=== PATIENT | male | born 1950 | race Caucasian/White ===

== ENCOUNTER 2017-01-17 08:06 | Inpatient (IN) | payer MEDICARE ==
[~2017-01-17] VITALS: Ht 154.9 cm; Wt 80.9 kg
[~2017-01-17 08:06] MED LIST: ACYC-101 PO; ALPR0.25 PO; AMLO5TAB2 PO; ASPI-110 PO; CYCL1TAB29 PO; DIAZ5TAB PO; HYDR-3580 PO; HYDR25TA5 PO; LOSA50TA PO; PREV30CA11 PO; ZETI10TA5 PO; ZOLP5TAB3 PO
[2017-01-17] MEDS ORDERED: ceFAZolin 2 GM PREMIX 50 ML IV SCH (08:45)
[2017-01-17] MEDS ORDERED: LACTATED RINGER'S 1000 ML IV PRN (08:45)
[2017-01-17] MEDS ORDERED: CHLORHEXIDINE GLUCONATE 2 % 1 PACK (2 CLOTHS) TOPICAL PRN (08:45)
[2017-01-17] MEDS ORDERED: METOPROLOL TARTRATE 25 MG TAB PO PRN (08:45)
[2017-01-17] MEDS ORDERED: POVIDONE IODINE 5% (ANTISEPSIS KIT) 4 APPLICATIONS EACH NARE PRN (08:45)
[2017-01-17] MEDS ORDERED: SODIUM CHLORID 0.9% 500 ML IV PRN (08:45)
[2017-01-17] MEDS ORDERED: INSULIN HUMAN REGULAR 1,000 UNITS/10 ML VIAL SQ PRN (08:45)
[2017-01-17] MEDS ORDERED: ZOFR4TAB PO (08:46)
[2017-01-17 08:49] VITALS: BP 126/68; PULSE 62; RESP 18; TEMP 98.2; O2SAT 97
[2017-01-17 09:21] LABS: AUTOMATED NEUTROPHIL # 3.1 TH/MM3 (1.8-7.7); BASOPHIL % 0.3 % (0.0-2.0); EOSINOPHIL # 0.3 TH/MM3 (0-0.4); HEMATOCRIT 46.9 % (39.0-51.0); HEMO FLAGS DIFF FINAL; LYMPH % 30.3 % (9.0-44.0); LYMPHOCYTE # 1.7 TH/MM3 (1.0-4.8); MEAN CELL VOLUME 93.9 FL (80.0-100.0); MEAN CORPUSCULAR HEMOGLOBIN 31.9 PG (27.0-34.0); MEAN CORPUSCULAR HGB CONC 33.9 % (32.0-36.0); MONO % 8.5 % (0.0-8.0); NEUT % 55.9 % (16.0-70.0); PLATELET COUNT 247 TH/MM3 (150-450); RED CELL DISTRIBUTION WIDTH 12.7 % (11.6-17.2); WHITE BLOOD COUNT 5.6 TH/MM3 (4.0-11.0)
[2017-01-17 09:38] LABS: BICARBONATE 32.2 MEQ/L (21.0-32.0)
[2017-01-17] MEDS ORDERED: SUGAMMADEX SODIUM 200 MG/2 ML VIAL IV PUSH ONE ×2 (09:47)
[2017-01-17] MEDS ORDERED: ACETAMINOPHEN 1000 MG/100 ML VIAL IV ONE (09:47)
[2017-01-17] MEDS ORDERED: ONABOTULINUMTOXINA INJ 100 UNITS/VIAL ONE (10:00)
[2017-01-17] MEDS ORDERED: LACTATED RINGER'S 1000 ML INJ 3,000 ML IV ONE (12:00)
[2017-01-17] MEDS ORDERED: ONDANSETRON HCL 4 MG/2 ML VIAL IV PUSH ONE (12:00)
[2017-01-17] MEDS ORDERED: PROPOFOL 200 MG/20 ML AMP IV ONE (12:00)
[2017-01-17] MEDS ORDERED: ePHEDrine/NS 25 MG/5 ML SYR IV ONE (12:00)
[2017-01-17] MEDS ORDERED: BUPIVACAINE LIPOSOME PF 1.3% 20 ML VIAL ONE (12:44)
[2017-01-17] MEDS ORDERED: METHYLENE BLUE 10 MG/ML VIAL NG ONE (15:10)
[2017-01-17] MEDS ORDERED: diphenhydrAMINE HCL 50 MG/ML VIAL IV PRN (16:30)
[2017-01-17] MEDS ORDERED: BENZOCAINE 20% ORAL SPR 60 ML CAN MT PRN (16:30)
[2017-01-17] MEDS ORDERED: Post-op Orders (for Pharmacy) MISC XX ONE (16:30)
[2017-01-17] MEDS ORDERED: NALOXONE HCL 0.4 MG/ML AMP IV PRN ×2 (16:30)
[2017-01-17] MEDS ORDERED: DO NOT ADM ANY ANTICOAGULANT DRUGS PRN (16:30)
[2017-01-17] MEDS ORDERED: SODIUM CHLORIDE 0.9% FLUSH 10 ML FLUSH IV FLUSH PRN (16:30)
[2017-01-17] MEDS ORDERED: MORPHINE SULFATE 4 MG/ML INJ ONE (16:37)
[2017-01-17] MEDS ORDERED: fentaNYL CITRATE 250 MCG/5 ML AMP ONE (16:37)
[2017-01-17] MEDS ORDERED: MIDAZOLAM HCL 2 MG/2 ML VIAL ONE (16:37)
[2017-01-17] MEDS ORDERED: *morphine SULFATE 8 MG/ML PERIprocedure ONLY ONE ×3 (16:47→17:23)
[2017-01-17] MEDS: MORPHINE SULFATE 30 MG/30 ML PCA IV SCH ×2 (16:58→20:37)
[2017-01-17] MEDS: SODIUM CHLOR 0.9% 1000 ML INJ 1,000 ML IV SCH (16:58)
[2017-01-17] MEDS: metroNIDAZOLE 500 MG INJ 100 ML IV SCH (17:15)
[2017-01-17] MEDS: PANTOPRAZOLE SODIUM 40 MG VIAL IV SCH (17:29)
[2017-01-17 18:18] VITALS: BP 154/79; PULSE 100; RESP 19; TEMP 98.3; O2SAT 90
[2017-01-17 19:45] VITALS: O2SAT 92
[2017-01-17 20:00] VITALS: BP 162/88; PULSE 113; RESP 19; TEMP 97.8; O2SAT 90
[2017-01-17] MEDS: ACETAMINOPHEN 1000 MG/100 ML VIAL IV SCH (20:43)
[2017-01-17] MEDS: PCA - TOTAL MG MORPHINE DELIVERED PER SHIFT SCH (20:43)
[2017-01-17] MEDS: SODIUM CHLORIDE 0.9% FLUSH 10 ML FLUSH IV FLUSH SCH (20:44)
[2017-01-18] VITALS (8 sets, daily range): BP systolic 133–164; BP diastolic 66–76; PULSE 76–104; RESP 16–20; TEMP 96.5–99.7; O2SAT 92–95
[2017-01-18] MEDS: ACETAMINOPHEN 1000 MG/100 ML VIAL IV SCH ×5 (00:15→23:09)
[2017-01-18] MEDS: SODIUM CHLOR 0.9% 1000 ML INJ 1,000 ML IV SCH ×4 (00:17→23:11)
[2017-01-18] MEDS: metroNIDAZOLE 500 MG INJ 100 ML IV SCH ×2 (02:10→10:32)
[2017-01-18] MEDS: PCA - TOTAL MG MORPHINE DELIVERED PER SHIFT SCH ×3 (06:00→22:00)
[2017-01-18 07:01] LABS: AUTOMATED NEUTROPHIL # 13.2 TH/MM3 (1.8-7.7); BASOPHIL % 0.1 % (0.0-2.0); HEMATOCRIT 45.4 % (39.0-51.0); HEMO FLAGS DIFF FINAL; LYMPH % 5.4 % (9.0-44.0); LYMPHOCYTE # 0.8 TH/MM3 (1.0-4.8); MEAN CELL VOLUME 95.4 FL (80.0-100.0); MEAN CORPUSCULAR HEMOGLOBIN 32.3 PG (27.0-34.0); MEAN CORPUSCULAR HGB CONC 33.8 % (32.0-36.0); MONO % 4.3 % (0.0-8.0); NEUT % 90.2 % (16.0-70.0); PLATELET COUNT 181 TH/MM3 (150-450); RED BLOOD COUNT 4.76 MIL/MM3 (4.50-5.90); RED CELL DISTRIBUTION WIDTH 12.4 % (11.6-17.2); WHITE BLOOD COUNT 14.6 TH/MM3 (4.0-11.0)
[2017-01-18 07:18] LABS: BICARBONATE 27.5 MEQ/L (21.0-32.0); POTASSIUM 3.8 MEQ/L (3.5-5.1)
--- NOTE | 2017-01-18 08:11 | EKG ---
Date Performed: 01/17/2017 Time Performed: 08:49:10 PTAGE: 66 years EKG: Sinus rhythm NORMAL ECG NO PREVIOUS TRACING DOCTOR: Aman Guzman Interpretating Date/Time 01/18/2017 08:05:59
[2017-01-18] MEDS: SODIUM CHLORIDE 0.9% FLUSH 10 ML FLUSH IV FLUSH SCH ×2 (09:00→23:11)
--- NOTE | 2017-01-18 10:02 | PD.CONS ---
HPI Service [facility] Hospitalists Consult Requested By Dr. Ritchie Reason for Consult Medical Management Primary Care Physician Tai Bhatt MD Diagnoses: History of Present Illness Mr. 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 He was staged at a T1a,Nx based on EUS, CT thorax/Abd/pelvis and PET scan. Pt follows with Dr. Nickolas Luna for Oncology. He was admitted to [facility] on 01/17/17 for Laparoscopic gastrectomy and cholecystectomy with Botox injection with Dr. Ritchie. [facility] Hospitalist team was consulted to help with management of the pts chronic medical issues. Post-operatively he is afebrile, BP is stable. His nurse reports that post-operatively that he was hypoxic in the low 80's but this has improved somewhat today. He states that he feels like he can't take a deep breath because of the pain in his abdomen. He was able to get up with PT this morning and ambulated in the [place] with PT on 4L NC. PT reports that he did have some dizziness with sitting up. No nausea/vomiting. Pt with NGT in place, currently clamped as he just returned from working with PT. He denies any history of any lung issues. He has hx of tobacco use, smoked 1-2ppd x 20 years, quit in 1994. Denies any hx of COPD, asthma or RASHAAD. Pt does have HTN which is well controlled on Losartan 50mg po BID, Norvasc 5mg po BID and HCTZ 25mg po daily as an outpt. Pt BP is currently stable off all home meds. Pt with complaints of abdominal bloating and discomfort, moreso when he moves around. Denies any chest pain, palpitations, nausea/vomiting, or weakness. 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 HTN GERD Hyperlipidemia Osteoarthritis Past Surgical History Appendectomy Cataract surgery Elbow surgery Knee surgery Reported Medications -Zolpidem 5 Mg PO HS PRN -Zovirax 800 Mg PO BID PRN -Vcftccxh11 Mg PO TID PRN -Aspirin 81 Mg PO DAILY -Hydrochlorothiazide 25 Mg PO DAILY -Zetia 10 Mg PO HS -Losartan 50 Mg PO BID -Prevacid 30 Mg PO BID -Amlodipine 5 Mg PO BID -Hydrocodone-Acetaminophen 7.5-325 mg PO Q6H PRN -Zofran 8 Mg PO Q8HR PRN -Diazepam 5 Mg PO HS PRN -Alprazolam 0.25 Mg PO BID Allergies: Coded Allergies: HMG-CoA Reductase Inhibitors (Verified Allergy, Severe, MUSCLE PAIN, ) Family History Noncontributory Social History Denies any alcohol or illicit drug use He has hx of tobacco use, quit in 1994 Pt is currently 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 Physical Exam Vital Signs Vital Signs Date Time Temp Pulse Resp B/P Pulse Ox O2 Delivery O2 Flow Rate FiO2 01/18/17 09:24 95 Venturi Mask 6.00 35 01/18/17 08:00 96.5 95 16 134/70 93 01/18/17 06:00 18 01/18/17 04:00 97.7 88 19 138/70 95 01/18/17 00:00 97.8 104 19 133/76 93 01/17/17 20:43 16 01/17/17 20:43 16 01/17/17 20:37 16 01/17/17 20:00 97.8 113 19 162/88 90 01/17/17 19:50 Venturi Mask 6.00 35 01/17/17 18:18 98.3 100 19 154/79 90 01/17/17 17:45 99.0 91 14 143/67 93 Nasal Cannula 3 01/17/17 17:30 86 13 153/70 93 Nasal Cannula 3 01/17/17 17:15 82 14 152/62 94 Nasal Cannula 3 01/17/17 17:00 81 16 162/74 93 Nasal Cannula 4 01/17/17 16:58 15 01/17/17 16:45 76 19 156/82 95 Nasal Cannula 4 01/17/17 16:30 75 14 140/79 95 Nasal Cannula 4 01/17/17 16:28 98.3 78 19 138/79 95 Nasal Cannula 4 Physical Exam GENERAL: This is a well-nourished, well-developed patient, in no apparent distress. HEENT: Atraumatic. Normocephalic. No temporal or scalp tenderness. No scleral icterus. Airway patent. NGT in place. NECK: Trachea midline, supple, nontender. SubQ emphysema around the clavicles and neck area CARDIO: Regular. RESP: CTA bilaterally. No wheezes, rales, or rhonchi. ABD: Distended, ANDREW drain in place, bandages over laparascopic incisions are c/d/ i, no bowel sounds noted. EXT: Extremities without clubbing, cyanosis, or edema. NEURO: Awake and alert. Motor and sensory grossly within normal limits. Normal speech. Laboratory Laboratory Tests Test 01/18/17 06:15 White Blood Count 14.6 Red Blood Count 4.76 Hemoglobin 15.3 Hematocrit 45.4 Mean Corpuscular Volume 95.4 Mean Corpuscular Hemoglobin 32.3 Mean Corpuscular Hemoglobin 33.8 Concent Red Cell Distribution Width 12.4 Platelet Count 181 Mean Platelet Volume 7.8 Neutrophils (%) (Auto) 90.2 Lymphocytes (%) (Auto) 5.4 Monocytes (%) (Auto) 4.3 Eosinophils (%) (Auto) 0.0 Basophils (%) (Auto) 0.1 Neutrophils # (Auto) 13.2 Lymphocytes # (Auto) 0.8 Monocytes # (Auto) 0.6 Eosinophils # (Auto) 0.0 Basophils # (Auto) 0.0 CBC Comment DIFF FINAL Differential Comment Sodium Level 137 Potassium Level 3.8 Chloride Level 103 Carbon Dioxide Level 27.5 Anion Gap 7 Blood Urea Nitrogen 7 Creatinine 0.72 Estimat Glomerular Filtration 110 Rate Random Glucose 149 Calcium Level 7.4 Protein Corrected Calcium 8.0 Total Protein 6.0 Result Diagram: 01/18/1761401/18/17614 Assessment and Plan Problem List: (1) Primary adenocarcinoma of distal third of esophagus Status: Acute Plan: - Pt is a 66 y/o male recently diagnosed with 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 He was staged at a T1a,Nx based on EUS, CT thorax/Abd/pelvis and PET scan. Pt follows with Dr. Nickolas Luna for Oncology. - He was admitted to [facility] [place] on 01/17/17 for Laparoscopic gastrectomy and cholecystectomy with Botox injection with Dr. Ritchie. - Post-op pain control per Surgery - Pt is NPO with NGT and ANDREW drain in place - He is requiring increased supplemental O2 but he is not taking deep breaths due to pain, encourage IS use - Try to wean down on supplemental O2 - PT following - Monitor vitals closely - CXR in AM - Monitor labs - Supportive care - DVT prophylaxis with Lovenox (2) HTN (hypertension) Status: Chronic Plan: - HTN which is well controlled on Losartan 50mg po BID, Norvasc 5mg po BID and HCTZ 25mg po daily as an outpt - Currently BP is stable off all home meds - Vasotec PRN - Will likely need to add medications back in the further he gets from surgery (3) Hyperlipidemia Status: Chronic Plan: - Hold home meds until tolerating oral intake (4) GERD (gastroesophageal reflux disease) Status: Chronic Plan: - PPI Assessment and Plan Patient examined. Assessment and plan formulated with Rowan Murdock PA-C. I agree with the above. s/p gastrectomy. distal esophagus adenoca pt with ngt and ivf. 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 spirometer. poor inspiratory effort/hypoxia. f/u cxr. Rowan Murdock Jan 18, 2017 10:02 Al Jenkins MD Jan 18, 2017 13:03
[2017-01-18] MEDS: MORPHINE SULFATE 30 MG/30 ML PCA IV SCH ×2 (10:34→18:57)
[2017-01-18] MEDS ORDERED: cloNIDine HCL 0.1 MG TAB PO PRN (11:15)
--- NOTE | 2017-01-18 16:48 | HHI.PR ---
Subjective Subjective Notes Resting in bed No issues at bedside Objective Vitals/I&O Vital Signs Date Time Temp Pulse Resp B/P Pulse Ox O2 Delivery O2 Flow Rate FiO2 01/18/17 16:13 93 Venturi Mask 6.00 35 01/18/17 12:00 97.4 76 17 146/66 Labs Laboratory Tests Test 01/18/17 06:15 White Blood Count 14.6 Red Blood Count 4.76 Hemoglobin 15.3 Hematocrit 45.4 Mean Corpuscular Volume 95.4 Mean Corpuscular Hemoglobin 32.3 Mean Corpuscular Hemoglobin 33.8 Concent Red Cell Distribution Width 12.4 Platelet Count 181 Mean Platelet Volume 7.8 Neutrophils (%) (Auto) 90.2 Lymphocytes (%) (Auto) 5.4 Monocytes (%) (Auto) 4.3 Eosinophils (%) (Auto) 0.0 Basophils (%) (Auto) 0.1 Neutrophils # (Auto) 13.2 Lymphocytes # (Auto) 0.8 Monocytes # (Auto) 0.6 Eosinophils # (Auto) 0.0 Basophils # (Auto) 0.0 CBC Comment DIFF FINAL Differential Comment Sodium Level 137 Potassium Level 3.8 Chloride Level 103 Carbon Dioxide Level 27.5 Anion Gap 7 Blood Urea Nitrogen 7 Creatinine 0.72 Estimat Glomerular Filtration 110 Rate Random Glucose 149 Calcium Level 7.4 Protein Corrected Calcium 8.0 Total Protein 6.0 Cardiovascular: Regular Lungs: Clear Abdomen: Other (lap sites c/d/i; ANDREW in place ) Extremities: No edema Narrative Exam NGT to LIWS A/P Assessment and Plan 66 year old male POD1 laparoscopic gastrectomy and cholecystectomy with Botox injection -Keep NGT to LIWS -IVF -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 I reviewed and agree with the findings presented. I attest that I had a [id number] encounter with the patient on the same day, and personally performed and documented my assessment and findings in the medical record. Abdominal exam: soft, non-distended, no rebound tenderness, postoperative incisional pain only Es Solis Jan 18, 2017 16:48 Josh Ritchie MD Feb 07, 2017 14:03
[2017-01-18] MEDS: PANTOPRAZOLE SODIUM 40 MG VIAL IV SCH (18:05)
[2017-01-18] MEDS: ENOXAPARIN SODIUM 40 MG/0.4 ML SYRINGE SQ SCH (18:05)
[2017-01-18] MEDS ORDERED: EZETIMIBE 10 MG TAB PO SCH (21:00)
[2017-01-19] VITALS (9 sets, daily range): BP systolic 134–184; BP diastolic 66–83; PULSE 90–125; RESP 16–20; TEMP 96.3–99.2; O2SAT 92–98
[2017-01-19] MEDS: ACETAMINOPHEN 1000 MG/100 ML VIAL IV SCH ×3 (05:25→17:43)
[2017-01-19] MEDS: PCA - TOTAL MG MORPHINE DELIVERED PER SHIFT SCH ×3 (05:25→21:04)
--- NOTE | 2017-01-19 06:36 | RADRPT ---
EXAM DATE/TIME: 01/19/2017 06:11 [place] COMPARISON: No previous studies available for comparison. INDICATIONS : Short of breath, chest and abdominal pain,2 days post laporscopic gastrectomy MEDICAL HISTORY : carcinoma of stomach SURGICAL HISTORY : lap gastrectomy ENCOUNTER: Subsequent ACUITY: 2 days PAIN SCORE: 10/10 LOCATION: Bilateral chest FINDINGS: Mild consolidation and small pleural effusion seen at the left lung base. Don't see a pneumothorax. H eart size within normal limits. There is a nasogastric tube that deviates abruptly to the left at the level of the diaphragm, tip projecting over the left lung base. There is questionable body wall emph ysema, especially left base of neck. CONCLUSION: Mild consolidation and small pleural effusion at the left lung base. Unusual course and tip location of the nasogastric tube as above. Please correlate with the recent surgery. Gonzales Pierre MD on January 19, 2017 at 6:32 Board Certified Radiologist. This report was verified electronically.
[2017-01-19 07:13] LABS: AUTOMATED NEUTROPHIL # 12.3 TH/MM3 (1.8-7.7); BASOPHIL % 0.2 % (0.0-2.0); EOSINOPHIL % 0.1 % (0.0-4.0); HEMATOCRIT 43.3 % (39.0-51.0); HEMO FLAGS DIFF FINAL; LYMPH % 4.8 % (9.0-44.0); LYMPHOCYTE # 0.7 TH/MM3 (1.0-4.8); MEAN CELL VOLUME 96.7 FL (80.0-100.0); MEAN CORPUSCULAR HEMOGLOBIN 32.4 PG (27.0-34.0); MEAN CORPUSCULAR HGB CONC 33.5 % (32.0-36.0); MONO % 5.7 % (0.0-8.0); NEUT % 89.2 % (16.0-70.0); PLATELET COUNT 151 TH/MM3 (150-450); RED BLOOD COUNT 4.48 MIL/MM3 (4.50-5.90); RED CELL DISTRIBUTION WIDTH 12.8 % (11.6-17.2); WHITE BLOOD COUNT 13.8 TH/MM3 (4.0-11.0)
[2017-01-19 07:31] LABS: BICARBONATE 27.1 MEQ/L (21.0-32.0); MAGNESIUM 2.1 MG/DL (1.5-2.5); POTASSIUM 3.7 MEQ/L (3.5-5.1)
[2017-01-19] MEDS: SODIUM CHLORIDE 0.9% FLUSH 10 ML FLUSH IV FLUSH SCH ×2 (09:00→21:00)
[2017-01-19] MEDS: MORPHINE SULFATE 30 MG/30 ML PCA IV SCH ×2 (09:11→18:14)
--- NOTE | 2017-01-19 12:26 | MP ---
cc: BURAK ROCHA DATE OF SURGERY: 01/17/2017. PREOPERATIVE DIAGNOSIS: Proximal gastric adenocarcinoma of the cardia. POSTOPERATIVE DIAGNOSIS: Proximal gastric adenocarcinoma of the cardia. OPERATIVE PROCEDURE PERFORMED: 1. Laparoscopic cholecystectomy. 2. Laparoscopic proximal (partial) gastrectomy with esophageal gastric anastomosis. 3. Injection of pylorus with Botox. ATTENDING SURGEON: Burak Rocha M.D. ASSISTANTS: Adam Canales MD. ANESTHESIA: General and regional tap block. ESTIMATED BLOOD LOSS: Less than 50 cc. COMPLICATIONS: None. FINDINGS: An ulcerated small tumor consistent with the patient's cardia tumor grossly on the specimen. Esophageal gastric anastomosis without leak on leak test. Relatively normal-appearing gallbladder. INDICATIONS FOR THE PROCEDURE: The patient is a 66-year-old male who developed some epigastric abdominal pain. The patient underwent extensive work up including upper endoscopy and evaluation of his gallbladder. It was felt the patient likely had gallbladder disease versus reflux disease. The patient was also diagnosed during his workup for reflux with a small early stage T1 type gastric adenocarcinoma of the cardia and the stomach. The patient was referred for surgery for evaluation. I had discussion with the patient about recommendations for early stage adenocarcinoma (surgical resection was recommended). Also discussion with the patient about cholecystectomy as well due to the patient's epigastric pain. The patient agreed to undergo cholecystectomy as well. Risks, benefits, and alternatives to both the procedures were discussed with the patient in detail prior to the procedure and the patient agreed to undergo the procedure. DESCRIPTION OF THE PROCEDURE IN DETAIL: The patient was taken to the operating room and placed in a supine position and placed under general endotracheal anesthesia. The patient underwent a regional tap block at that time. The abdomen was entered through a Zeny direct entry technique and the patient and a periumbilical incision. We directly placed a 10-mm trocar into the abdomen under direct visualization. We then were able to insufflate the abdomen and surveyed the abdomen. There was no evidence of any intra-abdominal pathology. We placed a 5-mm port in the subxiphoid position and a second 5-mm port in the right upper quadrant under visualization with a laparoscope. We were to perform the cholecystectomy first. We grasped the gallbladder around the infundibulum body junction with the grasper and retracted this upward. We used the LigaSure device as well as the [place] dissector to dissect out the cystic duct and cystic artery without difficulty. The gallbladder was fairly normal-appearing but with some other chronic changes. We then were able to place a proximal clip distal in the cystic duct and a clip proximal in the cystic artery and a critical view of safety was obtained. We divided these structures with the LigaSure and used hook electrocautery to take the gallbladder off the gallbladder fossa. The gallbladder was removed from the abdomen in an EndoCatch bag. At this point, we turned our attention to the partial gastrectomy. We were able to use the LigaSure device to take down the of the short gastrics and mobilized the gastrocolic ligament all way down to the right tiburcio. We divided the right and left tiburcio with the LigaSure device opening up a hiatus thoroughly. We dissected around the esophagus and placed a Hudson around this to gain retraction. We mobilized the esophagus up to approximately 3-4 cm into the chest. We then mobilized the proximal stomach. We did leave the left gastric intact. We essentially mobilized several centimeters from the GE junction down to the cardia and over to the fundus. We divided the proximal margin and distal margin with green loads on the echelon laparoscopic GI stapler. The specimen then was freed from the patient then was removed from the abdomen with the EndoCatch bag. Of note, we did place an additional 5 and an additional 10-mm port in the patient's epigastric and left upper quadrant area as for assistance ports. We also placed a Tyra-Flex liver retractor as well. We did confirm on the specimen that the tumor was in the cardia of the stomach and had widely grossly negative margins. This seemed to be a very superficial type malignancy as it was not externally visible. We turned our attention towards reconstruction. We were able to have essentially a tension-free connection between what was left of the proximal body of the stomach and the distal end of the esophagus. We made an enterotomy at the left lateral side of the esophagus and again the proximal body of the stomach on the anterior portion of the stomach. We fired a green load stabilizer across this approximately 30 mm which gave us a widely patent anastomosis. I was then able to place an nasogastric tube past this anastomosis and this was widely patent with viable tissue. We closed the staple defect with a running 3-0 Vicryl suture. We also placed some PDS gastropexy type sutures to reduce any tension on the anastomosis. We placed some Evicel around the anastomosis 360 degrees. We had excellent tactical result with a leak test prior to the Evicel there was no leak of Methylene blue and saline infusion into the stomach. We did at this point in time place 100 units of Botox in the pylorus for chemical pyloroplasty. We also placed a 19-Niuean round Isidro drain in the right upper quadrant extending to near the anastomosis anteriorly. We turned our attention towards closure. We removed all ports under visualization with the laparoscope and expressed the pneumoperitoneum. We closed the 10 port sites with #0 Vicryl suture. We sutured the drain in place with a nylon suture. We closed the skin with 4-0 Monocryl and Dermabond. The patient was reversed from anesthesia and taken to the post-anesthesia care unit in stable. The patient tolerated the procedure well with no apparent complications. All counts were correct. I was present and scrubbed for the entire procedure. MD DEMETRIUS Pires/ODILON /4:39 PM /12:01 PM
--- NOTE | 2017-01-19 14:05 | HHI.PR ---
Subjective Remarks doing ok. no new complaints Objective Vitals ngt heart reg lung diminished air entrh abd s/minimal bs ext no edema. Vital Signs Date Time Temp Pulse Resp B/P Pulse Ox O2 Delivery O2 Flow Rate FiO2 01/19/17 12:46 92 Venturi Mask 5.00 35 01/19/17 12:00 96.3 94 16 134/66 98 h01/19/17 09:11 16 01/19/17 09:04 92 01/19/17 08:00 97.8 90 17 155/71 95 01/19/17 05:55 20 01/19/17 05:25 20 01/19/17 04:00 99.2 95 20 184/83 93 01/19/17 00:00 99.1 95 18 142/68 93 01/18/17 22:00 20 01/18/17 20:00 99.7 104 20 164/75 92 01/18/17 19:30 20 01/18/17 18:57 18 01/18/17 16:13 93 Venturi Mask 6.00 35 01/18/17 16:00 97.3 96 17 153/75 93 01/18/17 01/18/17 01/19/17 15:00 23:00 07:00 Intake Total 75 ml 1403 ml 1447 ml Output Total 950 ml 1050 ml 1380 ml Balance -875 ml 353 ml 67 ml Intake Oral 75 ml IV Total 1403 ml 1447 ml Output Urine Total 950 ml 500 ml 1200 ml Gastric Drainage Total 500 ml 100 ml Drainage Total 50 ml 80 ml # Bowel Movements 0 0 0 Result Diagram: 01/19/17 0557 01/19/17 0557 A/P Problem List: (1) Primary adenocarcinoma of distal third of esophagus Status: Acute Plan: - Pt is a 66 y/o male recently diagnosed with 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 He was staged at a T1a,Nx based on EUS, CT thorax/Abd/pelvis and PET scan. Pt follows with Dr. Nickolas Luna for Oncology. - He was admitted to [facility] [place] on 01/17/17 for Laparoscopic gastrectomy and cholecystectomy with Botox injection with Dr. Ritchie. - Post-op pain control per Surgery - Pt is NPO with NGT and ANDREW drain in place - He is requiring increased supplemental O2 but he is not taking deep breaths due to pain, encourage IS use - Try to wean down on supplemental O2 - BP meds iv prn - PT following - Cont IVF. npo per GS - Supportive care - DVT prophylaxis with Lovenox (2) HTN (hypertension) Status: Chronic Plan: - HTN which is well controlled on Losartan 50mg po BID, Norvasc 5mg po BID and HCTZ 25mg po daily as an outpt - Currently BP is stable off all home meds - Vasotec PRN (3) Hyperlipidemia Status: Chronic Plan: - Hold home meds until tolerating oral intake (4) GERD (gastroesophageal reflux disease) Status: Chronic Plan: - PPI Al Jenkins MD Jan 19, 2017 14:05
--- NOTE | 2017-01-19 15:57 | HHI.PR ---
Subjective Subjective Notes Up to chair Pain better controlled today Objective Vitals/I&O Vital Signs Date Time Temp Pulse Resp B/P Pulse Ox O2 Delivery O2 Flow Rate FiO2 01/19/17 15:37 92 Venturi Mask 6.00 35 01/19/17 12:00 96.3 94 16 134/66 Labs Laboratory Tests Test 01/19/17 05:57 White Blood Count 13.8 Red Blood Count 4.48 Hemoglobin 14.5 Hematocrit 43.3 Mean Corpuscular Volume 96.7 Mean Corpuscular Hemoglobin 32.4 Mean Corpuscular Hemoglobin 33.5 Concent Red Cell Distribution Width 12.8 Platelet Count 151 Mean Platelet Volume 8.0 Neutrophils (%) (Auto) 89.2 Lymphocytes (%) (Auto) 4.8 Monocytes (%) (Auto) 5.7 Eosinophils (%) (Auto) 0.1 Basophils (%) (Auto) 0.2 Neutrophils # (Auto) 12.3 Lymphocytes # (Auto) 0.7 Monocytes # (Auto) 0.8 Eosinophils # (Auto) 0.0 Basophils # (Auto) 0.0 CBC Comment DIFF FINAL Differential Comment Sodium Level 138 Potassium Level 3.7 Chloride Level 103 Carbon Dioxide Level 27.1 Anion Gap 8 Blood Urea Nitrogen 6 Creatinine 0.64 Estimat Glomerular Filtration 126 Rate Random Glucose 120 Calcium Level 8.2 Magnesium Level 2.1 Cardiovascular: Regular Lungs: Clear Abdomen: Other (lap sites c/d/i; ANDREW with serosanguineous drainage ) Extremities: No edema Narrative Exam NGT to LIWS A/P Assessment and Plan 66 year old male POD2 laparoscopic gastrectomy and cholecystectomy with Botox injection -Keep NGT to LIWS; DO NOT REPLACE IF IT COMES OUT!!!!!!!!!!!!!!!!!!!!!!!!! 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 I reviewed and agree with the findings presented. I attest that I had a [id number] encounter with the patient on the same day, and personally performed and documented my assessment and findings in the medical record. Abdominal exam: soft, non-distended, no rebound tenderness, postoperative incisional pain, incisions clean, dry, intact Es Solis Jan 19, 2017 15:57 Josh Ritchie MD Feb 07, 2017 14:06
[2017-01-19] MEDS: PANTOPRAZOLE SODIUM 40 MG VIAL IV SCH (17:42)
[2017-01-19] MEDS: ENOXAPARIN SODIUM 40 MG/0.4 ML SYRINGE SQ SCH (17:43)
[2017-01-19] MEDS: SODIUM CHLOR 0.9% 1000 ML INJ 1,000 ML IV SCH ×2 (18:15→21:04)
[2017-01-19] MEDS: LORazepam 2 MG/ML VIAL IVP PRN (21:05)
[2017-01-20] VITALS (8 sets, daily range): BP systolic 140–181; BP diastolic 70–86; PULSE 101–119; RESP 17–20; TEMP 95.7–98.8; O2SAT 92–95
[2017-01-20] MEDS: ACETAMINOPHEN 1000 MG/100 ML VIAL IV SCH ×3 (00:37→12:11)
[2017-01-20] MEDS: PCA - TOTAL MG MORPHINE DELIVERED PER SHIFT SCH ×3 (04:30→22:00)
[2017-01-20] MEDS: MORPHINE SULFATE 30 MG/30 ML PCA IV SCH ×3 (04:32→20:29)
[2017-01-20] MEDS: SODIUM CHLORIDE 0.9% FLUSH 10 ML FLUSH IV FLUSH SCH ×2 (08:51→19:55)
[2017-01-20] MEDS: SODIUM CHLOR 0.9% 1000 ML INJ 1,000 ML IV SCH ×3 (08:52→22:35)
[2017-01-20] MEDS: ENOXAPARIN SODIUM 40 MG/0.4 ML SYRINGE SQ SCH (16:46)
[2017-01-20] MEDS: PANTOPRAZOLE SODIUM 40 MG VIAL IV SCH (16:46)
--- NOTE | 2017-01-20 16:53 | HHI.PR ---
Subjective Subjective Notes sitting up in bed, FM O2 on 35%. Appears comfortable, indicates he has been SOB. C/O sore throat. Objective Vitals/I&O Vital Signs Date Time Temp Pulse Resp B/P Pulse Ox O2 Delivery O2 Flow Rate FiO2 01/20/17 13:57 18 01/20/17 12:00 95.7 117 140/70 93 01/20/17 10:15 Venturi Mask 35 01/19/17 15:37 6.00 Cardiovascular: Regular Lungs: Clear Abdomen: Non-distended, Other (incisions and drain sites look fine, dark old bloody drainage in drain tubing, minimal amount.), Post-op tenderness Extremities: No edema, Perfused A/P Assessment and Plan Postop lap partial gastrectomy. GI study Sunday through NG tube. Stable. Bradley Lang MD Jan 20, 2017 16:53
[2017-01-20] MEDS: ENALAPRILAT 1.25 MG/ML VIAL IV PRN (19:50)
--- NOTE | 2017-01-20 21:02 | HHI.PR ---
Subjective Remarks in chair. has been assisting him. Objective Vitals heent ngt heart reg lung diminshed anderson abd s/nt ext no edema Vital Signs Date Time Temp Pulse Resp B/P Pulse Ox O2 Delivery O2 Flow Rate FiO2 01/20/17 20:29 18 01/20/17 16:00 95.7 101 18 181/84 95 01/20/17 13:57 18 01/20/17 12:00 95.7 117 17 140/70 93 01/20/17 11:30 16 01/20/17 10:15 93 Venturi Mask 35 01/20/17 08:00 97.1 101 18 181/86 93 01/20/17 04:32 18 01/20/17 04:30 18 01/20/17 00:00 98.6 119 20 170/81 92 01/19/17 21:04 18 01/19/17 01/19/17 01/20/17 15:00 23:00 07:00 Intake Total 0 ml 1849 ml 930 ml Output Total 940 ml 20 ml Balance 0 ml 909 ml 910 ml Intake Oral 0 ml IV Total 1849 ml 930 ml Output Urine Total 600 ml Gastric Drainage Total 250 ml Drainage Total 90 ml 20 ml # Voids 2 # Bowel Movements 0 0 Result Diagram: 01/19/17 0557 01/19/17 0557 A/P Problem List: (1) Primary adenocarcinoma of distal third of esophagus Status: Acute Plan: - Pt is a 66 y/o male recently diagnosed with 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 He was staged at a T1a,Nx based on EUS, CT thorax/Abd/pelvis and PET scan. Pt follows with Dr. Nickolas Luna for Oncology. - He was admitted to [facility] [place] on 01/17/17 for Laparoscopic gastrectomy and cholecystectomy with Botox injection with Dr. Ritchie. - Post-op pain control per Surgery - Pt is NPO with NGT and ANDREW drain in place - He is requiring increased supplemental O2 but he is not taking deep breaths due to pain, encourage IS use - Try to wean down on supplemental O2 - BP meds iv prn - PT daily - Cont IVF. npo per - Supportive care - DVT prophylaxis with Lovenox - Testing planned for Sunday through NGT per gen surg (2) HTN (hypertension) Status: Chronic Plan: - HTN which is well controlled on Losartan 50mg po BID, Norvasc 5mg po BID and HCTZ 25mg po daily as an outpt - Currently BP is stable off all home meds - Vasotec PRN (3) Hyperlipidemia Status: Chronic Plan: - Hold home meds until tolerating oral intake (4) GERD (gastroesophageal reflux disease) Status: Chronic Plan: - PPI Al Jenkins MD Jan 20, 2017 21:02
[2017-01-21] VITALS (8 sets, daily range): BP systolic 145–194; BP diastolic 72–92; PULSE 97–110; RESP 14–20; TEMP 96.3–98.7; O2SAT 91–96
[2017-01-21] MEDS: MORPHINE SULFATE 30 MG/30 ML PCA IV SCH ×2 (05:31→22:18)
[2017-01-21] MEDS: PCA - TOTAL MG MORPHINE DELIVERED PER SHIFT SCH ×3 (05:34→21:41)
[2017-01-21] MEDS: SODIUM CHLOR 0.9% 1000 ML INJ 1,000 ML IV SCH ×3 (05:42→21:41)
[2017-01-21] MEDS: SODIUM CHLORIDE 0.9% FLUSH 10 ML FLUSH IV FLUSH SCH ×2 (07:56→21:00)
--- NOTE | 2017-01-21 11:18 | HHI.PR ---
Subjective Remarks Pt sitting in chair feels more sob today. Objective Vitals ngt heart reg lung diminished air entry abd minimal bs ext no edema Vital Signs Date Time Temp Pulse Resp B/P Pulse Ox O2 Delivery O2 Flow Rate FiO2 01/21/17 05:35 18 01/21/17 05:34 18 01/21/17 05:31 18 01/21/17 00:00 98.7 110 20 145/72 91 01/20/17 22:00 18 01/20/17 20:52 93 Venturi Mask 35 01/20/17 20:29 18 01/20/17 20:00 98.8 107 20 170/81 93 01/20/17 19:46 18 01/20/17 16:00 95.7 101 18 181/84 95 01/20/17 13:57 18 01/20/17 12:00 95.7 117 17 140/70 93 01/20/17 11:30 16 01/20/17 01/20/17 01/21/17 15:00 23:00 07:00 Intake Total 1113 ml 735 ml 1254 ml Output Total 1050 ml 610 ml 710 ml Balance 63 ml 125 ml 544 ml Intake Oral 0 ml IV Total 1113 ml 735 ml 1254 ml Output Urine Total 900 ml 400 ml 400 ml Gastric Drainage Total 150 ml 200 ml 300 ml Drainage Total 10 ml 10 ml # Bowel Movements 0 Result Diagram: 01/19/1757 01/19/17 0557 A/P Problem List: (1) Primary adenocarcinoma of distal third of esophagus Status: Acute Plan: - Pt is a 66 y/o male recently diagnosed with 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 He was staged at a T1a,Nx based on EUS, CT thorax/Abd/pelvis and PET scan. Pt follows with Dr. Nickolas Luna for Oncology. - He was admitted to [facility] [place] [facility] [place] for Laparoscopic partial gastrectomy and cholecystectomy with Botox injection with Dr. Ritchie. - Post-op pain control per Surgery - Pt is NPO with NGT and ANDREW drain in place - He is requiring increased supplemental O2 but he is not taking deep breaths due to pain, encourage IS use - Try to wean down on supplemental O2 - BP meds iv prn - PT daily - DVT prophylaxis with Lovenox - Testing planned for Sunday through NGT per gen surg - PT more sob...repeat cxr to eval for fluid overload. pt has positive fluid balance. nebs ordered. might need to give iv lasix. lower ivf. (2) HTN (hypertension) Status: Chronic Plan: - HTN which is well controlled on Losartan 50mg po BID, Norvasc 5mg po BID and HCTZ 25mg po daily as an outpt - Currently BP is stable off all home meds - Vasotec PRN (3) Hyperlipidemia Status: Chronic Plan: - Hold home meds until tolerating oral intake (4) GERD (gastroesophageal reflux disease) Status: Chronic Plan: - PPI Al Jenkins MD Jan 21, 2017 11:17
[2017-01-21] MEDS: RESP: ALBUTEROL 2.5 MG/IPRATROPIUM 0.5 MG NEB (SCH) NEB ×2 (12:02→20:56)
--- NOTE | 2017-01-21 12:08 | RADRPT ---
EXAM DATE/TIME: 01/21/2017 11:47 [facility] COMPARISON: CHEST SINGLE AP, January 19, 2017, 6:11. INDICATIONS : Shortness of breath post partial gastrectomy. MEDICAL HISTORY : Carcinoma, esophageal. Carcinoma, gastric. SURGICAL HISTORY : Partial gastrectomy and distal esophagectomy. ENCOUNTER: Initial ACUITY: 1 day PAIN SCORE: 2/10 LOCATION: Bilateral chest FINDINGS: A single AP portable erect view of the chest was obtained and demonstrates a nasogastric tube with th e tip apparently in the distal esophagus. The side-port appears projected over the mid esophagus. The re is a second catheter which is projected extending over the central mediastinum and appears to loop back upon itself in the upper abdomen with the tip near the hemidiaphragm. A portion of this cathete r is cut off the exam. The lower portion of this catheter was visualized on the prior study. The uppe r portion was not present on the prior study. Abnormal opacity is noted at the lung bases which is in creased from the prior study. There is blunting of the left costophrenic angle. The heart size appear s mildly prominent. CONCLUSION: 1. Increasing opacity at the lung bases left greater than right with blunting of the costophrenic ang le on the left consistent with an effusion. 2. Apparent nasogastric tube with the tip in the distal esophagus. The side-port appears projected ov er the mid esophagus. There is a second catheter projected over the mediastinum of unclear significan ce and needs correlation. This could be further evaluated with CT if indicated. Jose Diamond MD on January 21, 2017 at 12:01 Board Certified Radiologist. This report was verified electronically.
--- NOTE | 2017-01-21 12:34 | HHI.PR ---
Subjective Subjective Notes chest feels tight, feels like he can't get a deep breath. says [employer] not really helping that much. ofirmev does help. wants NG out yokasta. Objective Vitals/I&O Vital Signs Date Time Temp Pulse Resp B/P Pulse Ox O2 Delivery O2 Flow Rate FiO2 01/21/17 12:02 93 Venturi Mask 35 01/21/17 05:35 18 01/21/17 00:00 98.7 110 145/72 01/19/17 15:37 6.00 Cardiovascular: Regular Lungs: Clear Abdomen: Non-distended, Post-op tenderness, BS normal A/P Assessment and Plan s/p partial gastrectomy CXR pending - will check later today continue oxygen await upper GI sunday to DC Adam Li MD Jan 21, 2017 12:34
[2017-01-21] MEDS ORDERED: FUROSEMIDE 20 MG/2 ML VIAL IV PUSH ONE (13:00)
[2017-01-21] MEDS: PANTOPRAZOLE SODIUM 40 MG VIAL IV SCH (15:00)
[2017-01-21] MEDS: ENOXAPARIN SODIUM 40 MG/0.4 ML SYRINGE SQ SCH (15:00)
[2017-01-21 17:00] LABS: BICARBONATE 26.9 MEQ/L (21.0-32.0); MAGNESIUM 2.3 MG/DL (1.5-2.5); POTASSIUM 3.1 MEQ/L (3.5-5.1)
[2017-01-21] MEDS ORDERED: LORazepam 2 MG/ML VIAL IV ONE (17:30)
[2017-01-22] VITALS (8 sets, daily range): BP systolic 148–191; BP diastolic 72–93; PULSE 73–103; RESP 16–22; TEMP 96.5–99.4; O2SAT 91–97
[2017-01-22] MEDS: PCA - TOTAL MG MORPHINE DELIVERED PER SHIFT SCH ×2 (05:13→14:00)
[2017-01-22] MEDS: SODIUM CHLOR 0.9% 1000 ML INJ 1,000 ML IV SCH (05:18)
[2017-01-22] MEDS: LORazepam 2 MG/ML VIAL IVP PRN ×2 (06:26→21:51)
[2017-01-22] MEDS: SODIUM CHLORIDE 0.9% FLUSH 10 ML FLUSH IV FLUSH SCH ×2 (09:00→21:00)
[2017-01-22] MEDS: RESP: ALBUTEROL 2.5 MG/IPRATROPIUM 0.5 MG NEB (SCH) NEB ×3 (09:29→20:28)
[2017-01-22] MEDS: NS + KCL 40 MEQ INJ 1,000 ML IV SCH ×2 (10:24→21:50)
--- NOTE | 2017-01-22 12:16 | HHI.PR ---
Subjective Remarks Pt feels that his breathing is less labored today but still requiring 6L of supplemental O2 via ventimask. Pt did have some flatus this morning. NGT is out. Objective Vitals Vital Signs Date Time Temp Pulse Resp B/P Pulse Ox O2 Delivery O2 Flow Rate FiO2 01/22/17 09:34 95 Venturi Mask 6.00 35 01/22/17 08:00 96.5 73 17 182/83 91 01/22/17 05:13 18 01/22/17 00:10 93 Venturi Mask 5.00 35 01/22/17 00:00 97.4 81 18 148/72 97 01/21/17 22:20 16 01/21/17 22:18 16 01/21/17 21:41 18 01/21/17 20:00 98.7 97 19 186/92 96 01/21/17 16:00 96.3 98 14 194/88 94 01/21/17 14:00 16 01/21/17 01/21/17 01/22/17 15:00 23:00 07:00 Intake Total 1113 ml 653 ml 775 ml Output Total 1210 ml 425 ml 450 ml Balance -97 ml 228 ml 325 ml Intake Oral 0 ml 0 ml IV Total 1113 ml 653 ml 775 ml Output Urine Total 850 ml 200 ml 400 ml Gastric Drainage Total 350 ml 225 ml 50 ml Drainage Total 10 ml 0 ml 0 ml Result Diagram: 01/19/17 0557 01/21/17 1600 Other Results Laboratory Tests Test 01/21/17 16:00 Sodium Level 141 MEQ/L Potassium Level 3.1 MEQ/L Chloride Level 104 MEQ/L Carbon Dioxide Level 26.9 MEQ/L Anion Gap 10 MEQ/L Blood Urea Nitrogen 12 MG/DL Creatinine 0.50 MG/DL Estimat Glomerular Filtration 167 ML/MIN Rate Random Glucose 133 MG/DL Calcium Level 8.3 MG/DL Phosphorus Level 2.0 MG/DL Magnesium Level 2.3 MG/DL Imaging Last Impressions Chest X-Ray 01/21/17 0000 Signed Impressions: Service Date/Time: Saturday, January 21, 2017 11:47 - CONCLUSION: 1. Increasing opacity at the lung bases left greater than right with blunting of the costophrenic angle on the left consistent with an effusion. 2. Apparent nasogastric tube with the tip in the distal esophagus. The side-port appears projected over the mid esophagus. There is a second catheter projected over the mediastinum of unclear significance and needs correlation. This could be further evaluated with CT if indicated. Jose Diamond MD A/P Problem List: (1) Primary adenocarcinoma of distal third of esophagus Status: Acute Plan: - Pt is a 66 y/o male recently diagnosed with 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 He was staged at a T1a,Nx based on EUS, CT thorax/Abd/pelvis and PET scan. Pt follows with Dr. Nickolas Luna for Oncology. - He was admitted to [facility] [place] on 01/17/17 for Laparoscopic partial gastrectomy and cholecystectomy with Botox injection with Dr. Ritchie. - Post-op pain control per Surgery - Pt is NPO with NGT and ANDREW drain in place - He is requiring increased supplemental O2 but he is not taking deep breaths due to pain, encourage IS use - Try to wean down on supplemental O2 - BP meds iv prn - PT daily - DVT prophylaxis with Lovenox - NGT out - Pt is planned for Gastrografin esophagram today - Pt more SOB on 01/21. Repeat CXR (01/21) --> Increasing opacity at the lung bases left greater than right with blunting of the costophrenic angle on the left consistent with an effusion. Apparent nasogastric tube with the tip in the distal esophagus. The side-port appears projected over the mid esophagus. - He was given Lasix 20mg IV x one dose on 01/21. Feeling better today but still requiring 6L via Venti-mask with O2 sats in the low 90's. (2) HTN (hypertension) Status: Chronic Plan: - HTN which is well controlled on Losartan 50mg po BID, Norvasc 5mg po BID and HCTZ 25mg po daily as an outpt - BP is starting to elevate, when he is able to start having po intake we will being to resume his home meds - Vasotec PRN (3) Hyperlipidemia Status: Chronic Plan: - Hold home meds until tolerating oral intake (4) GERD (gastroesophageal reflux disease) Status: Chronic Plan: - PPI Assessment and Plan Patient examined. Assessment and plan formulated with Rowan Murdock PA-C. I agree with the above. Rowan Murdock Jan 22, 2017 12:16 Patrice Connelly DO Jan 23, 2017 12:16
[2017-01-22] MEDS ORDERED: DIATRIZOATE MEGLUM/DIATRIZOATE SOD 120 ML BTL (for RAD DIAG) PO ONE (12:30)
--- NOTE | 2017-01-22 13:06 | RADRPT ---
EXAM DATE/TIME: 01/22/2017 12:29 [facility] COMPARISON: No previous studies available for comparison. INDICATIONS : Post laparoscopic gastrectomy. FLUORO TIME: 1.5 minutes IMAGE COUNT: ? CONTRAST: 1. Gastrografin (Diatrizoate Meglumine and Diatrizoate Sodium) MEDICAL HISTORY : Carcinoma, esophageal. SURGICAL HISTORY : Appendectomy. ENCOUNTER: Initial ACUITY: 4 - 6 days PAIN SCORE: 5/10 LOCATION: distal esophagus. FINDINGS: Sips of Gastroview were administered orally in an upright position. Patient is post recent resection of the distal esophagus and proximal stomach with primary anastomosis. The majority of contrast material passes through the GE junction without difficulty and into the mid and distal stomach. There is a small amount of contrast that extends from the GE junction into the ri ght aspect and pools in a collection visualized is an air-fluid level. The contrast does not extend i nto the surgical drain. CONCLUSION: 1. Findings suspicious for a small leak at the gastroesophageal junction with contrast pooling into a n air fluid collection adjacent to the GE junction and distal esophagus. There was an end to side akbar stomosis performed so it is possible, but felt unlikely, that the collection represents a portion of the proximal stomach. 2. Findings were discussed with Dr. Ritchie. Gonzales Ramsay MD on January 22, 2017 at 12:58 Board Certified Radiologist. This report was verified electronically.
[2017-01-22] MEDS: MORPHINE SULFATE 30 MG/30 ML PCA IV SCH (13:17)
[2017-01-22] MEDS: ONDANSETRON HCL 4 MG/2 ML VIAL IV PRN (13:19)
--- NOTE | 2017-01-22 14:19 | RADRPT ---
EXAM DATE/TIME: 01/22/2017 12:42 [facility] COMPARISON: CHEST SINGLE AP, January 21, 2017, 11:47. GASTROGRAFIN SWALLOW, January 22, 2017, 12:29. INDICATIONS : Short of breath. MEDICAL HISTORY : Carcinoma, esophageal. SURGICAL HISTORY : Gastrectomy. ENCOUNTER: Initial ACUITY: 4 - 6 days PAIN SCORE: 0/10 LOCATION: Bilateral chest FINDINGS: The exam demonstrates moderate-sized bilateral effusions and diffuse interstitial prominence. The hea rt is normal size. The osseous structures are intact. Note is made of some retained contrast in the distal esophagus and stomach. CONCLUSION: Bilateral pleural effusions. These have worsened compared to previous dated 01/21/17. Jayson Das MD on January 22, 2017 at 14:16 Board Certified Radiologist. This report was verified electronically.
[2017-01-22] MEDS: ENOXAPARIN SODIUM 40 MG/0.4 ML SYRINGE SQ SCH (16:37)
--- NOTE | 2017-01-22 17:51 | RADRPT ---
EXAM DATE/TIME: 01/22/2017 17:12 [facility] COMPARISON: No previous studies available for comparison. INDICATIONS : Possible tumor, follow up status post esophagram. ORAL CONTRAST: Prescribed oral contrast ingested. RADIATION DOSE: 12.88 CTDIvol (mGy) MEDICAL HISTORY : Hypertension. Gastroesophageal reflux disease. Carcinoma, esophageal.stomach cancer SURGICAL HISTORY : None. ENCOUNTER: Initial ACUITY: 1 day PAIN SCALE: 6/10 LOCATION: abdomen TECHNIQUE: Volumetric scanning of the abdomen was performed. Using automated exposure control and adjustment of the mA and/or kV according to patient size, radiation dose was kept as low as reasonably achievable to obtain optimal diagnostic quality images. DICOM format image data is available electronically for review and comparison. FINDINGS: LOWER LUNGS: There are small bilateral pleural effusions with associated compressive atelectasis and/or consolidat ion in the lower lobes. LIVER: Homogeneous density without lesion. There is no dilation of the biliary tree. Gallbladder is absent. SPLEEN: Normal size without lesion. PANCREAS: No acute abnormality is appreciated. KIDNEYS: Normal in size and shape. There is no mass, stone, or hydronephrosis. ADRENAL GLANDS: Within normal limits. AORTA/RETROPERITONEAL: There is glujcpkd-tn-kywopi atherosclerotic disease. No lymphadenopathy is present. BOWEL/MESENTERY: There is staple line along the gastric cardia region. 2 the right of the GE junction there is an air and fluid collection along with high density contrast material and soft tissue density. This material extends into the posterior mediastinum on the right. In a craniocaudal dimension the full extent of the abnormality measures 7.2 cm. The most inferior part may represent a portion of the stomach. The s urgical drain extends into the left upper quadrant but is not directly adjacent to the air and fluid collection. Trace fluid is present along the greater curvature of the stomach. Small bowel and colon demonstrate no abnormality. MUSCULOSKELETAL: There are degenerative changes of the lumbar spine. There is subcutaneous air on the anterior abdomin al wall, related to the recent procedure. CONCLUSION: 1. There is an abnormal air and fluid collection located to the right of the GE junction adjacent to the proximal stomach. It extends into the posterior mediastinum. The current appearance and findings on fluoroscopy examination earlier today are indicative of a leak at the anastomosis. The current emil gical drain is not directly adjacent to the collection and based on the location I do not think that we could place a drain in an appropriate location percutaneously. 2. Small bilateral pleural effusions with associated atelectasis and/or consolidation in both lower l obes. Gonzales Ramsay MD on January 22, 2017 at 17:41 Board Certified Radiologist. This report was verified electronically.
[2017-01-22] MEDS: PANTOPRAZOLE SODIUM 40 MG VIAL IV SCH (18:51)
--- NOTE | 2017-01-22 18:58 | HHI.PR ---
Subjective Subjective Notes Resting in bed NGT fell out this AM Objective Vitals/I&O Vital Signs Date Time Temp Pulse Resp B/P Pulse Ox O2 Delivery O2 Flow Rate FiO2 01/22/17 16:00 97.8 92 18 156/73 93 01/22/17 09:34 Venturi Mask 6.00 35 Cardiovascular: Regular Lungs: Clear Abdomen: Other (lap sites c/d/i; ANDREW with serous fluid; minimall tender; abdomen soft ) Extremities: No edema A/P Assessment and Plan 66 year old male POD5 laparoscopic gastrectomy and cholecystectomy with Botox injection -Keep NGT out -IVF -Continue ANDREW management -FIRE EATER for pain control -Dr. Ritchie to review UGI results as well as pathology this afternoon -OOB as tolerated -Appreciate [facility] Hospitalist Attending Statement The exam, history, and the medical decision-making described in the above note were completed with the assistance of the mid-level provider. I reviewed and agree with the findings presented. I attest that I had a fxiu-ae-cftk encounter with the patient on the same day, and personally performed and documented my assessment and findings in the medical record. Abdominal exam: soft, non-distended, no rebound tenderness, postoperative incisional pain, incisions clean, dry, intact upper GI shows small leak, contained/draining, will start ABX path shows positive margins for carcinoma, will need more extensive gastrectomy , d/w family and patient, will return to OR next 24-48h for subtotal gastrectomy Es Solis Jan 22, 2017 18:58 Josh Ritchie MD Feb 07, 2017 14:08
[2017-01-22] MEDS ORDERED: NALOXONE HCL 0.4 MG/ML AMP IV PRN (20:45)
[2017-01-22] MEDS: LEVOFLOXACIN 500 MG PREMIX INJ 100 ML IV SCH (21:50)
[2017-01-23] VITALS (9 sets, daily range): BP systolic 159–200; BP diastolic 70–96; PULSE 86–97; RESP 16–20; TEMP 96.2–99.2; O2SAT 92–95
[2017-01-23] MEDS: HYDROmorphone HCL PCA 6 MG/30 ML IV SCH ×2 (01:13→16:15)
[2017-01-23] MEDS: PCA - TOTAL MG DILAUDID DELIVERED PER SHIFT OTHER SCH ×3 (06:00→22:00)
[2017-01-23 06:01] LABS: AUTOMATED NEUTROPHIL # 9.5 TH/MM3 (1.8-7.7); BASOPHIL % 0.1 % (0.0-2.0); EOSINOPHIL % 0.1 % (0.0-4.0); HEMATOCRIT 38.8 % (39.0-51.0); HEMO FLAGS DIFF FINAL; LYMPH % 8.3 % (9.0-44.0); MEAN CELL VOLUME 95.4 FL (80.0-100.0); MEAN CORPUSCULAR HEMOGLOBIN 32.5 PG (27.0-34.0); MEAN CORPUSCULAR HGB CONC 34.1 % (32.0-36.0); MONO % 10.1 % (0.0-8.0); NEUT % 81.4 % (16.0-70.0); PLATELET COUNT 233 TH/MM3 (150-450); RED BLOOD COUNT 4.07 MIL/MM3 (4.50-5.90); RED CELL DISTRIBUTION WIDTH 13.2 % (11.6-17.2); WHITE BLOOD COUNT 11.6 TH/MM3 (4.0-11.0)
[2017-01-23 06:24] LABS: ALT (GPT) 65 U/L (12-78); ANION GAP 6 MEQ/L (5-15); AST (GOT) 28 U/L (15-37); BICARBONATE 29.9 MEQ/L (21.0-32.0); BLOOD UREA NITROGEN 11 MG/DL (7-18); CHLORIDE 111 MEQ/L (98-107); GLOMERULAR FILTRATION RATE 184 ML/MIN (>89); POTASSIUM 3.6 MEQ/L (3.5-5.1); SODIUM (NA) 147 MEQ/L (136-145)
[2017-01-23 06:27] LABS: ALKALINE PHOSPHATASE 67 U/L (45-117); TOTAL BILIRUBIN ADULT 0.6 MG/DL (0.2-1.0)
[2017-01-23] MEDS: NS + KCL 40 MEQ INJ 1,000 ML IV SCH ×3 (06:49→22:44)
[2017-01-23] MEDS: SODIUM CHLORIDE 0.9% FLUSH 10 ML FLUSH IV FLUSH SCH ×2 (07:53→21:00)
[2017-01-23] MEDS: ENALAPRILAT 1.25 MG/ML VIAL IV PRN (07:53)
[2017-01-23] MEDS: RESP: ALBUTEROL 2.5 MG/IPRATROPIUM 0.5 MG NEB (SCH) NEB ×3 (08:58→20:16)
--- NOTE | 2017-01-23 12:23 | HHI.PR ---
Subjective Remarks Pt still on the Venti mask @ 5L He states that he is doing the deep breathing and using the IS but not making any progress on weaning down on the O2 requirements BP very elevated today and pt is NPO and unable to take any oral medications Objective Vitals Vital Signs Date Time Temp Pulse Resp B/P Pulse Ox O2 Delivery O2 Flow Rate FiO2 01/23/17 09:44 180/70 01/23/17 08:59 93 Venturi Mask 5.00 35 01/23/17 08:00 96.4 92 16 200/96 93 192/89 01/23/17 06:00 18 01/23/17 04:00 99.2 97 20 193/89 92 01/23/17 01:13 18 01/23/17 00:00 99.0 93 20 159/79 92 01/22/17 20:28 93 Venturi Mask 6.00 35 01/22/17 20:00 99.4 103 22 191/93 92 01/22/17 16:00 97.8 92 18 156/73 93 01/22/17 14:00 16 01/22/17 13:17 5 01/22/17 01/22/17 01/23/17 15:00 23:00 07:00 Intake Total 75 ml 2179 ml 889 ml Output Total 200 ml 3 ml 12 ml Balance -125 ml 2176 ml 877 ml Intake Oral 75 ml 0 ml 0 ml IV Total 2179 ml 889 ml Output Urine Total 200 ml 2 ml Drainage Total 3 ml 10 ml # Voids 2 1 # Bowel Movements 1 0 2 Result Diagram: 01/23/17 0539 01/23/17 0539 Other Results Laboratory Tests Test 01/21/17 01/23/17 16:00 05:39 Sodium Level 141 MEQ/L 147 MEQ/L Potassium Level 3.1 MEQ/L 3.6 MEQ/L Chloride Level 104 MEQ/L 111 MEQ/L Carbon Dioxide Level 26.9 MEQ/L 29.9 MEQ/L Anion Gap 10 MEQ/L 6 MEQ/L Blood Urea Nitrogen 12 MG/DL 11 MG/DL Creatinine 0.50 MG/DL 0.46 MG/DL Estimat Glomerular Filtration 167 ML/MIN 184 ML/MIN Rate Random Glucose 133 MG/DL 124 MG/DL Calcium Level 8.3 MG/DL 8.0 MG/DL Phosphorus Level 2.0 MG/DL Magnesium Level 2.3 MG/DL White Blood Count 11.6 TH/MM3 Red Blood Count 4.07 MIL/MM3 Hemoglobin 13.2 GM/DL Hematocrit 38.8 % Mean Corpuscular Volume 95.4 FL Mean Corpuscular Hemoglobin 32.5 PG Mean Corpuscular Hemoglobin 34.1 % Concent Red Cell Distribution Width 13.2 % Platelet Count 233 TH/MM3 Mean Platelet Volume 7.6 FL Neutrophils (%) (Auto) 81.4 % Lymphocytes (%) (Auto) 8.3 % Monocytes (%) (Auto) 10.1 % Eosinophils (%) (Auto) 0.1 % Basophils (%) (Auto) 0.1 % Neutrophils # (Auto) 9.5 TH/MM3 Lymphocytes # (Auto) 1.0 TH/MM3 Monocytes # (Auto) 1.2 TH/MM3 Eosinophils # (Auto) 0.0 TH/MM3 Basophils # (Auto) 0.0 TH/MM3 CBC Comment DIFF FINAL Differential Comment Total Bilirubin 0.6 MG/DL Aspartate Amino Transf 28 U/L (AST/SGOT) Alanine Aminotransferase 65 U/L (ALT/SGPT) Alkaline Phosphatase 67 U/L Total Protein 6.2 GM/DL Albumin 1.9 GM/DL Imaging Last Impressions Upper GI/Barium Swallow X-Ray 01/22/17 0000 Signed Impressions: Service Date/Time: Sunday, January 22, 2017 12:29 - CONCLUSION: 1. Findings suspicious for a small leak at the gastroesophageal junction with contrast pooling into an air fluid collection adjacent to the GE junction and distal esophagus. There was an end to side anastomosis performed so it is possible, but felt unlikely, that the collection represents a portion of the proximal stomach. 2. Findings were discussed with Dr. Ritchie. Gonzales Ramsay MD Chest X-Ray 01/22/17 0000 Signed Impressions: Service Date/Time: Sunday, January 22, 2017 12:42 - CONCLUSION: Bilateral pleural effusions. These have worsened compared to previous dated 01/21/17. Jayson Das MD Abdomen CT 01/22/17 0000 Signed Impressions: Service Date/Time: Sunday, January 22, 2017 17:12 - CONCLUSION: 1. There is an abnormal air and fluid collection located to the right of the GE junction adjacent to the proximal stomach. It extends into the posterior mediastinum. The current appearance and findings on fluoroscopy examination earlier today are indicative of a leak at the anastomosis. The current surgical drain is not directly adjacent to the collection and based on the location I do not think that we could place a drain in an appropriate location percutaneously. 2. Small bilateral pleural effusions with associated atelectasis and/or consolidation in both lower lobes. Gonzales Ramsay MD Last Impressions Chest X-Ray 01/21/17 0000 Signed Impressions: Service Date/Time: Saturday, January 21, 2017 11:47 - CONCLUSION: 1. Increasing opacity at the lung bases left greater than right with blunting of the costophrenic angle on the left consistent with an effusion. 2. Apparent nasogastric tube with the tip in the distal esophagus. The side-port appears projected over the mid esophagus. There is a second catheter projected over the mediastinum of unclear significance and needs correlation. This could be further evaluated with CT if indicated. Jose Diamond MD Objective Remarks General: NAD, AAOx3 Chest: Decreased breath sounds at the bases, on Venti mask Cardiac: Regular Abd: Decreased bowel sounds, ANDREW drain in place with holley fluid output Ext: No edema A/P Problem List: (1) Primary adenocarcinoma of distal third of esophagus Status: Acute Plan: - Pt is a 66 y/o male recently diagnosed with 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 He was staged at a T1a,Nx based on EUS, CT thorax/Abd/pelvis and PET scan. Pt follows with Dr. Nickolas Luna for Oncology. - [place] [facility] [place] for Laparoscopic partial gastrectomy and cholecystectomy with Botox injection with Dr. Ritchie. - Post-op pain control per Surgery - Pt is NPO with ANDREW drain in place - He has been requiring increased supplemental O2 but he is not taking deep breaths due to pain, encourage IS use - Pt more SOB on 01/21. - Repeat CXR (01/21) --> Increasing opacity at the lung bases left greater than right with blunting of the costophrenic angle on the left consistent with an effusion. Apparent nasogastric tube with the tip in the distal esophagus. The side-port appears projected over the mid esophagus. - He was given Lasix 20mg IV x one dose on 01/21. - Pt still requiring 5-6L via Venti-mask with O2 sats in the low 90's. - Obtain Noncontrasted Chest CT today, pt may benefit from thoracentesis if effusions are large enough - NGT fell out on 01/22 - Gastrografin esophagram (01/22/17) --> Findings suspicious for a small leak at the gastroesophageal junction with contrast pooling into an air fluid collection adjacent to the GE junction and distal esophagus. There was an end to side anastomosis performed so it is possible, but felt unlikely, that the collection represents a portion of the proximal stomach. - CT Abd/pelvis (01/22/17) --> There is an abnormal air and fluid collection located to the right of the GE junction adjacent to the proximal stomach. It extends into the posterior mediastinum. The current appearance and findings on fluoroscopy examination earlier today are indicative of a leak at the anastomosis. The current surgical drain is not directly adjacent to the collection and based on the location I do not think that we could place a drain in an appropriate location percutaneously. Small bilateral pleural effusions with associated atelectasis and/or consolidation in both lower lobes. - Pathology --> Poorly differentiate adenocarcinoma and signet ring cell carcinoma, tumor extends to the proximal resection margin over a large area. The distal margin of resection is free of tumor. - Pt is still NPO - Per discussion with Surgery, pt likely planned to return to OR tomorrow. - DVT prophylaxis with Lovenox (2) HTN (hypertension) Status: Chronic Plan: - HTN which is well controlled on Losartan 50mg po BID, Norvasc 5mg po BID and HCTZ 25mg po daily as an outpt - BP is significantly elevated today and IV Vasotec is not doing much to improve the BP - We will transfer the pt to where he can receive IV Hydralazine - Monitor BP closely (3) Hyperlipidemia Status: Chronic Plan: - Hold home meds until tolerating oral intake (4) GERD (gastroesophageal reflux disease) Status: Chronic Plan: - PPI Assessment and Plan Patient examined. Assessment and plan formulated with Rowan Murdock PA-C. I agree with the above. Rowan Murdock Jan 23, 2017 12:23 Patrice Connelly DO Jan 28, 2017 23:17
[2017-01-23] MEDS: ENOXAPARIN SODIUM 40 MG/0.4 ML SYRINGE SQ SCH (16:11)
--- NOTE | 2017-01-23 16:48 | HHI.PR ---
Subjective Subjective Notes Up to chair Visiting with family friends Objective Vitals/I&O Vital Signs Date Time Temp Pulse Resp B/P Pulse Ox O2 Delivery O2 Flow Rate FiO2 01/23/17 16:15 16 01/23/17 15:00 97.4 89 169/91 94 01/23/17 08:59 Venturi Mask 5.00 35 Labs Laboratory Tests Test 01/23/17 05:39 White Blood Count 11.6 Red Blood Count 4.07 Hemoglobin 13.2 Hematocrit 38.8 Mean Corpuscular Volume 95.4 Mean Corpuscular Hemoglobin 32.5 Mean Corpuscular Hemoglobin 34.1 Concent Red Cell Distribution Width 13.2 Platelet Count 233 Mean Platelet Volume 7.6 Neutrophils (%) (Auto) 81.4 Lymphocytes (%) (Auto) 8.3 Monocytes (%) (Auto) 10.1 Eosinophils (%) (Auto) 0.1 Basophils (%) (Auto) 0.1 Neutrophils # (Auto) 9.5 Lymphocytes # (Auto) 1.0 Monocytes # (Auto) 1.2 Eosinophils # (Auto) 0.0 Basophils # (Auto) 0.0 CBC Comment DIFF FINAL Differential Comment Sodium Level 147 Potassium Level 3.6 Chloride Level 111 Carbon Dioxide Level 29.9 Anion Gap 6 Blood Urea Nitrogen 11 Creatinine 0.46 Estimat Glomerular Filtration 184 Rate Random Glucose 124 Calcium Level 8.0 Total Bilirubin 0.6 Aspartate Amino Transf 28 (AST/SGOT) Alanine Aminotransferase 65 (ALT/SGPT) Alkaline Phosphatase 67 Total Protein 6.2 Albumin 1.9 Cardiovascular: Regular Lungs: Clear Abdomen: Other (lap sites c/d/i; ANDREW with thick drainage ) Extremities: No edema A/P Assessment and Plan 66 year old male POD6 laparoscopic gastrectomy and cholecystectomy with Botox injection -Keep NGT out -IVF -PICC consult and TPN -Levaquin -Continue ANDREW management -MATERIAL DISPATCHER for pain control -Plan for OR tomorrow for open subtotal gastrectomy and possible Jejunostomy tube -OOB as tolerated -Appreciate [facility] Hospitalist Attending Statement The exam, history, and the medical decision-making described in the above note were completed with the assistance of the mid-level provider. I reviewed and agree with the findings presented. I attest that I had a [id number] encounter with the patient on the same day, and personally performed and documented my assessment and findings in the medical record. d/w patient and family about surgery developing bilateral effusions, will need chest tubes Es Solis Jan 23, 2017 16:48 Josh Ritchie MD Feb 07, 2017 14:14
[2017-01-23] MEDS: PANTOPRAZOLE SODIUM 40 MG VIAL IV SCH (17:40)
[2017-01-23] MEDS: LORazepam 2 MG/ML VIAL IV PRN (17:40)
[2017-01-23 17:43] LABS: PROTHROMBIN TIME - PATIENT 10.8 SEC (9.8-11.6)
--- NOTE | 2017-01-23 18:44 | RADRPT ---
EXAM DATE/TIME: 01/23/2017 18:15 [facility] COMPARISON: CHEST PA & LAT, January 22, 2017, 12:42. INDICATIONS : PICC line placement. MEDICAL HISTORY : Carcinoma, esophageal. SURGICAL HISTORY : Gastroectomy. ENCOUNTER: Subsequent ACUITY: 4 - 6 days PAIN SCORE: 0/10 LOCATION: Bilateral chest FINDINGS: Small to moderate pleural effusions with atelectasis seen of both lung bases. No pneumothorax. Heart size stable, within normal limits. There is a right arm PICC with tip in the right atrium now seen. CONCLUSION: 1. Right arm PICC has its tip in the right atrium. 2. Consolidation and small to moderate effusions of both bases. Gonzales Pierre MD on January 23, 2017 at 18:41 Board Certified Radiologist. This report was verified electronically.
--- NOTE | 2017-01-23 19:58 | RADRPT ---
EXAM DATE/TIME: 01/23/2017 18:54 [facility] COMPARISON: CHEST PA & LAT, January 22, 2017, 12:42. INDICATIONS : Pleural effusions. RADIATION DOSE: 16.49 CTDIvol (mGy) MEDICAL HISTORY : Hypertension. Carcinoma, esophageal. Carcinoma, gastric. SURGICAL HISTORY : gastrectomy ENCOUNTER: Initial ACUITY: 1 day PAIN SCALE: 3/10 LOCATION: chest TECHNIQUE: Volumetric scanning of the chest was performed. Using automated exposure control and adjustment of t he mA and/or kV according to patient size, radiation dose was kept as low as reasonably achievable to obtain optimal diagnostic quality images. DICOM format image data is available electronically for r eview and comparison. Follow-up recommendations for detected pulmonary nodules are based at a minimum on nodule size and pa tient risk factors according to Fleischner Society Guidelines. FINDINGS: Moderate bilateral pleural effusions are present. Right pleural effusion is mildly loculated within t he major fissure and also laterally at the apex. Left pleural effusion is essentially entirely free-f lowing. Dense consolidation seen of both lower lobes, including in the infrahilar regions. There is ques tionable masslike fullness in the right infrahilar region but limited evaluation without contrast and due to the right lower lobe consolidation. Normal heart size. There is coronary artery calcification, most conspicuous of the left main and left anterior descending. I don't see any lymphadenopathy. Fluid is seen in the lower esophagus. A. surgical drain is seen, enters the right midabdomen and tip is in the left subdiaphragmatic r egion CONCLUSION: 1. Moderate-sized bilateral pleural effusions. Right pleural effusion has several small areas of locu lation as above. 2. Bilateral lower lobe consolidation. 3. Somewhat mass like fullness in the right infrahilar region. A contrast-enhanced CT of the chest is recommended, preferably after resolution of pleural effusions and bibasilar consolidation. Gonzales Pierre MD on January 23, 2017 at 19:49 Board Certified Radiologist. This report was verified electronically.
[2017-01-23] MEDS ORDERED: SODIUM CHLORIDE 0.9% FLUSH 10 ML FLUSH IV FLUSH PRN (20:00)
[2017-01-23] MEDS ORDERED: CLINIMIX E 4.25/25 2000 mL- >42 mls/hr IV-CENTRAL SCH ×3 (20:00)
[2017-01-23] MEDS: FAT EMULSION 20% INJ 250 ML (Daily over 8 hours) IV-CENTRAL SCH (22:34)
[2017-01-23] MEDS: LEVOFLOXACIN 500 MG PREMIX INJ 100 ML IV SCH (22:35)
[2017-01-23] MEDS: hydrALAZINE HCL 20 MG/ML VIAL IV PRN (22:35)
[2017-01-24] VITALS (10 sets, daily range): BP systolic 147–210; BP diastolic 80–113; PULSE 99–185; RESP 18–32; TEMP 98–99; O2SAT 91–100
[2017-01-24] MEDS: LORazepam 2 MG/ML VIAL IV PRN ×3 (01:04→10:15)
[2017-01-24] MEDS: HYDROmorphone HCL PCA 6 MG/30 ML IV SCH (04:16)
[2017-01-24] MEDS: PCA - TOTAL MG DILAUDID DELIVERED PER SHIFT OTHER SCH ×3 (05:50→22:00)
[2017-01-24] MEDS: NS + KCL 40 MEQ INJ 1,000 ML IV SCH (09:00)
[2017-01-24] MEDS: SODIUM CHLORIDE 0.9% FLUSH 10 ML FLUSH IV FLUSH SCH ×3 (09:00→21:00)
[2017-01-24] MEDS ORDERED: NORMOSOL R INJ 2,000 ML IV ONE (09:25)
[2017-01-24] MEDS ORDERED: LACTATED RINGER'S 1000 ML INJ 3,000 ML IV ONE (09:25)
--- NOTE | 2017-01-24 11:54 | RADRPT ---
EXAM DATE/TIME: 01/24/2017 11:13 [facility] COMPARISON: No previous studies available for comparison. INDICATIONS : Shortness of breath. MEDICAL HISTORY : Hypertension. Gastroesophageal reflux disease. Hernia, hiatal. Stomach cancer. Esophageal cancer. SURGICAL HISTORY : Tonsillectomy. Bilateral knee arthroscopy. ENCOUNTER: Initial ACUITY: 1 day PAIN SCORE: 3/10 LOCATION: Right chest MEASUREMENTS: SKIN TO PARIETAL PLEURA: 3.4 cm SKIN TO MAX SAFE DEPTH: 5.1 cm ESTIMATED FLUID VOLUME: 464 cc FLUID COMPOSITION: simple FINDINGS: Pleural effusion as above. A maico was placed on the skin surface superficial to the pleural fluid col lection. CONCLUSION: 1. Small/moderate right pleural effusion. Jayson Das MD on January 24, 2017 at 11:52 Board Certified Radiologist. This report was verified electronically.
--- NOTE | 2017-01-24 11:56 | RADRPT ---
EXAM DATE/TIME: 01/24/2017 11:13 [facility] COMPARISON: No previous studies available for comparison. INDICATIONS : Shortness of breath. MEDICAL HISTORY : Hypertension. Gastroesophageal reflux disease. Hernia, hiatal. Stomach cancer. Esophageal cancer. SURGICAL HISTORY : Tonsillectomy. Bilateral knee arthroscopy. ENCOUNTER: Initial ACUITY: 1 day PAIN SCORE: 4/10 LOCATION: Left chest MEASUREMENTS: SKIN TO PARIETAL PLEURA: 2.2 cm SKIN TO MAX SAFE DEPTH: 3.8 cm ESTIMATED FLUID VOLUME: 624 cc FLUID COMPOSITION: simple FINDINGS: Pleural effusion as above. A maico was placed on the skin surface superficial to the pleural fluid col lection. CONCLUSION: 1. Large left pleural effusion. Jayson Das MD on January 24, 2017 at 11:53 Board Certified Radiologist. This report was verified electronically.
[2017-01-24] MEDS: ENALAPRILAT 1.25 MG/ML VIAL IV PRN (12:08)
[2017-01-24] MEDS: RESP: ALBUTEROL 2.5 MG/IPRATROPIUM 0.5 MG NEB (SCH) NEB ×2 (12:53→20:00)
[2017-01-24] MEDS ORDERED: GELFOAM SIZE 100 ONE (13:41)
[2017-01-24] MEDS ORDERED: MIDAZOLAM HCL 5 MG/ML VIAL (1 ML) ONE (14:03)
[2017-01-24] MEDS ORDERED: ROCURONIUM INJ 50 MG/5 ML VIAL ONE (14:04)
[2017-01-24 14:08] LABS: BLOOD GAS CARBOXYHEMOGLOBIN 1.3 % (0-4); BLOOD GAS HCO3 27 mmol/L (22-26); BLOOD GAS O2 HGB SATURATION 96 % (90-100); BLOOD GAS OXYGEN CONTENT 19.8 Vol % (12.0-20.0); BLOOD GAS PCO2 39 mmHg (38-42); BLOOD GAS PO2 100 mmHg (61-120); BLOOD GAS TOTAL HGB 14.7 G/DL (12.0-16.0); TEMP CORR TO 98.6
[2017-01-24 14:09] LABS: CRITICAL VALUE NO; DRAW SITE RT RADIAL; FIO2 100 %; LITER FLOW 15 L/M; NUMBER OF ARTERIAL PUNCTURES 1; ULNAR PULSE PRESENT
[2017-01-24 14:10] LABS: STAT YES
[2017-01-24] MEDS ORDERED: METOPROLOL TARTRATE 5 MG/5 ML VIAL ONE (14:35)
[2017-01-24] MEDS ORDERED: SODIUM CHLOR 0.9% 1000 ML INJ 1,000 ML IV ONE (15:00)
[2017-01-24] MEDS: PIPERACIL-TAZO 4.5 GM PREMIX 100 ML IV SCH ×5 (15:00→22:20)
[2017-01-24 15:15] LABS: BLOOD GAS BASE EXCESS 0.9 mmol/L (-2-2); BLOOD GAS CARBOXYHEMOGLOBIN 1.1 % (0-4); BLOOD GAS HCO3 25 mmol/L (22-26); BLOOD GAS METHEMOGLOBIN 0.9 % (0-2); BLOOD GAS O2 HGB SATURATION 97 % (90-100); BLOOD GAS PCO2 39 mmHg (38-42); BLOOD GAS PO2 269 mmHg (61-120); BLOOD GAS TOTAL HGB 12.7 G/DL (12.0-16.0); CRITICAL VALUE NO; DRAW SITE ART LINE; FIO2 100 %; OXYGEN DEVICE VENTILATOR; STAT YES; TEMP CORR TO 98.6; ULNAR PULSE PRESENT; VENT SETTINGS PRVC/AC
--- NOTE | 2017-01-24 15:39 | RADRPT ---
EXAM DATE/TIME: 01/24/2017 15:06 [facility] COMPARISON: CHEST SINGLE AP, January 23, 2017, 18:15. INDICATIONS : Short of breath. MEDICAL HISTORY : Hypertension. Gastroesophageal reflux disease. Hernia, hiatal. Stomach cancer.Esophageal cancer. SURGICAL HISTORY : None. ENCOUNTER: Initial ACUITY: 1 day PAIN SCORE: Non-responsive. LOCATION: Bilateral chest FINDINGS: A single portable frontal view of the chest shows bilateral small pleural effusions with bibasilar pu lmonary infiltrates. The appearance is similar to the prior study. Heart is normal in size. Mild pulm onary vascular engorgement. Endotracheal tube tip 3 cm proximal to the luna. Right-sided PICC line. Degenerative spine. CONCLUSION: Unchanged bilateral pleural effusions and bilateral pulmonary infiltrates. Chalino Olmedo Jr., MD on January 24, 2017 at 15:33 Board Certified Radiologist. This report was verified electronically.
--- NOTE | 2017-01-24 15:52 | PD.CONS ---
[facility] Service Critical Care Medicine Consult Requested By General Surgery Reason for Consult Respiratory Failure Primary Care Physician Tai Bhatt MD History of Present Illness 66 y/o man has developed respiratory failure following a laparoscopic partial gastrectomy performed 01/17. He was brought to the [facility] where I met him on his arrival. Intubated for hypoxemic failure and lines placed. After 2 liters NS patient making > 40 ml/hr urine. Arrived in atrial fibrillation with rate 160s, converted after fluid, analgesia, and lopressor 5 mg X 1.Loaded with antibiotics. Family is aware. Review of Systems ROS Upper abdominal pain, SOB. Past Family Social History Allergies: Coded Allergies: amlodipine (Unverified Allergy, Severe, MUSCLE PAIN, 01/23/17) atorvastatin (Unverified Allergy, Severe, MUSCLE PAIN, 01/23/17) pravastatin (Unverified Allergy, Severe, MUSCLE PAIN, 01/23/17) simvastatin (Unverified Allergy, Severe, MUSCLE PAIN, 01/23/17) Past Medical History Atrial fibrillation, paroxysmal Physical Exam Vital Signs Vital Signs Date Time Temp Pulse Resp B/P Pulse Ox O2 Delivery O2 Flow Rate FiO2 01/24/17 14:20 98 100 01/24/17 12:53 95 Venturi Mask 6.00 01/24/17 12:00 98.8 120 18 156/113 94 01/24/17 08:00 98.0 109 18 176/95 93 01/24/17 07:00 Venturi Mask 6.00 01/24/17 05:50 18 01/24/17 05:01 20 01/24/17 04:16 22 01/24/17 04:00 98.0 99 18 176/84 97 01/24/17 04:00 Venturi Mask 6.00 01/24/17 00:00 Venturi Mask 6.00 01/24/17 00:00 99.0 125 22 210/100 95 178/80 01/23/17 22:00 20 01/23/17 20:21 94 Venturi Mask 35 01/23/17 20:00 Venturi Mask 6.00 01/23/17 20:00 98.4 92 20 181/92 95 01/23/17 20:00 86 01/23/17 20:00 18 01/23/17 16:15 16 Physical Exam Gen: Ill-appearing, diaphoretic man Head: NL. Neck: Supple, airway widely patent. Lungs: Decreased breath sounds both bases, clear otherwise. Tachypnea, Sats 89% on NRBM. Heart: Irreg Irreg, 150 - 160s, neck veins flat. Abdomen: Mildly distended, soft. No peritoneal irritation but tender in epigastrium. Quiet. Extremities: Tepid, clammy. Neuro: Conversant, confused. Moves 4 limbs spontaneously. YESENIA. Laboratory Laboratory Tests Test 01/23/17 01/24/17 01/24/17 16:53 13:50 14:48 Prothrombin Time 10.8 Prothromb Time International 1.0 Ratio Blood Gas Puncture Site RT RADIAL ART LINE Blood Gas Patient Temperature 98.6 98.6 Blood Gas HCO3 27 25 Blood Gas Base Excess 3.0 0.9 Blood Gas Oxygen Saturation 96 97 Arterial Blood pH 7.46 7.42 Arterial Blood Partial 39 39 Pressure CO2 Arterial Blood Partial 100 269 Pressure O2 Arterial Blood Oxygen Content 19.8 18.0 Arterial Blood 1.3 1.1 Carboxyhemoglobin Arterial Blood Methemoglobin 1.0 0.9 Blood Gas Hemoglobin 14.7 12.7 Oxygen Delivery Device Non-Rebreathing VENTILATOR Mask Blood Gas Liter Flow 15 Blood Gas Inspired Oxygen 100 100 Blood Gas Ventilator Setting PRVC/AC Result Diagram: 01/23/17 0539 01/23/17 0539 Septic Shock Reassessment Heart: Irregular Lungs: Clear Skin: Moist Capillary Refill: Sluggish Assessment and Plan Problem List: (1) Acute hypoxemic respiratory failure ICD Code: J96.01 Status: Acute (2) Atrial fibrillation with RVR ICD Code: I48.91 Status: Acute (3) 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 PRVC vent mode. 2. NS 2 liters iv. 3. Produce urine > 40/hr. 4. PIP/DANIELLE iv. 5. ABG. 6. No NG tube - gastric anastomosis.. 7. Soto. 8. A-line, CVL. 9. Start D10W and stop TPN while floridly septic. Overall impression: Critically ill with apparent anastomotic leak and localized peritonitis. Unstable hemodynamics on arrival and septic appearance. Plan to resuscitate and proceed to OR with exploration by surgical service. Critical care 45 mins aside from procedures Pk Romero MD Jan 24, 2017 15:52
--- NOTE | 2017-01-24 16:04 | PD.PROCEDR ---
Procedure Note Procedure DX: Severe Sepsis (A41.9), Respiratory Failure (J96.01) OP: 1. Orotracheal intubation (12574) 2. Insertion Arterial Line (72009) 3. Insertion Central Venous Line (24782) Procedure: Bag mask ventilation. Versed 5 mg iv X 2. Rocuronium 100 mg iv. Intubated orally with 8.0 tube. Position confirmed with strong CO2 detection , breath sounds, sats 100%. Right chest prepped and draped. Right subclavian vein cannulated and wire advanced. Catheter passed over wire to 18 cm. Lumens aspirated and flushed. Dressing applied. Arnoldo test normal right hand. Right wrist supinated, prepped and draped. Right radial artery punctured with 20 gauge needle and wire advanced. Cannula passed over wire to 3 cm. Good waveform observed. Circulation to hand intact after procedure. CXR with ET tube and central line in good position. Pk Romero MD Jan 24, 2017 16:04
[2017-01-24] MEDS: PANTOPRAZOLE SODIUM 40 MG VIAL IV SCH (18:00)
[2017-01-24] MEDS: DEXTROSE 10% INJ 1,000 ML IV SCH (18:15)
[2017-01-24 18:26] LABS: BLOOD GAS BASE EXCESS -4.5 mmol/L (-2-2); BLOOD GAS CARBOXYHEMOGLOBIN 1.5 % (0-4); BLOOD GAS HCO3 20 mmol/L (22-26); BLOOD GAS METHEMOGLOBIN 1.4 % (0-2); BLOOD GAS O2 HGB SATURATION 96 % (90-100); BLOOD GAS OXYGEN CONTENT 15.4 Vol % (12.0-20.0); BLOOD GAS PCO2 34 mmHg (38-42); BLOOD GAS PO2 205 mmHg (61-120); CRITICAL VALUE NO; OXYGEN DEVICE VENTILATOR; STAT YES; TEMP CORR TO 98.6; ULNAR PULSE PRESENT
[2017-01-24] MEDS: CHLORHEXIDINE 0.12% (ORAL KIT) 15 ML CUP MT SCH (20:00)
[2017-01-24 20:04] LABS: HEMATOCRIT 39.8 % (39.0-51.0); REVIEW FLAG FINAL
--- NOTE | 2017-01-24 21:32 | HHI.PR ---
Immediate Post Op Note Procedure Date: Jan 24, 2017 Pre Op Diagnosis: (1) Gastric adenocarcinoma Post Op Diagnosis: (1) Gastric adenocarcinoma Surgeon: Josh Ritchie Electrolysis Operator(s): staff Procedure: bilateral thoracostomy tube placement open subtotal gastrectomy jejunostomy tube placement Findings: minimal inflammation small contained anastomotic leak from previous gastric surgery bilateral effusions Complications: none Specimen(s) removed: subtotal gastrectomy Estimated blood loss: 400ml Anesthesia: General Drains: ANDREW IVF Patient to: [facility] Patient Condition: Good Josh Ritchie MD Jan 24, 2017 21:31
[2017-01-24] MEDS: ACETAMINOPHEN 1000 MG/100 ML VIAL IV SCH (23:18)
[2017-01-24] MEDS: PROPOFOL 1000 MG/100 ML INJ 100 ML IV SCH (23:32)
[2017-01-24] MEDS: LEVOFLOXACIN 500 MG PREMIX INJ 100 ML IV SCH (23:32)
[2017-01-24] MEDS: FAT EMULSION 20% INJ 250 ML (Daily over 8 hours) IV-CENTRAL SCH (23:33)
[2017-01-24] MEDS ORDERED: HYDROmorphone HCL PF 1 MG/ML VIAL IV PRN (23:45)
[2017-01-25] VITALS (18 sets, daily range): BP systolic 88–150; BP diastolic 53–79; PULSE 92–114; RESP 14–18; TEMP 99.7–100; O2SAT 98–100
[2017-01-25 00:36] LABS: BICARBONATE 26.2 MEQ/L (21.0-32.0); CALCIUM-PROTEIN CORRECTED 7.8 MG/DL (8.5-10.1); MAGNESIUM 2.2 MG/DL (1.5-2.5); POTASSIUM 3.7 MEQ/L (3.5-5.1); TOTAL BILIRUBIN ADULT 0.9 MG/DL (0.2-1.0)
[2017-01-25] MEDS ORDERED: LORazepam 2 MG/ML VIAL IV ONE (00:45)
[2017-01-25] MEDS ORDERED: HYDROmorphone HCL PF 1 MG/ML VIAL IV ONE (00:45)
[2017-01-25] MEDS: PIPERACIL-TAZO 4.5 GM PREMIX 100 ML IV SCH ×4 (03:05→22:15)
[2017-01-25] MEDS: fentaNYL DRIP 250 ML IV SCH ×2 (03:05→20:08)
[2017-01-25] MEDS: PCA - TOTAL MG DILAUDID DELIVERED PER SHIFT OTHER SCH ×3 (03:05→22:00)
[2017-01-25] MEDS: ACETAMINOPHEN 1000 MG/100 ML VIAL IV SCH ×4 (05:39→22:15)
[2017-01-25 06:34] LABS: AUTOMATED NEUTROPHIL # 16.1 TH/MM3 (1.8-7.7); BASOPHIL # 0.1 TH/MM3 (0-0.2); BASOPHIL % 0.3 % (0.0-2.0); EOSINOPHIL % 0.1 % (0.0-4.0); HEMO FLAGS DIFF FINAL; LYMPH % 7.1 % (9.0-44.0); LYMPHOCYTE # 1.3 TH/MM3 (1.0-4.8); MEAN CELL VOLUME 98.2 FL (80.0-100.0); MEAN CORPUSCULAR HEMOGLOBIN 32.2 PG (27.0-34.0); MEAN CORPUSCULAR HGB CONC 32.8 % (32.0-36.0); NEUT % 88.5 % (16.0-70.0); PLATELET COUNT 230 TH/MM3 (150-450); RED BLOOD COUNT 3.97 MIL/MM3 (4.50-5.90); RED CELL DISTRIBUTION WIDTH 13.6 % (11.6-17.2); WHITE BLOOD COUNT 18.2 TH/MM3 (4.0-11.0)
[2017-01-25 07:05] LABS: BICARBONATE 24.7 MEQ/L (21.0-32.0); POTASSIUM 3.9 MEQ/L (3.5-5.1)
[2017-01-25 07:18] LABS: CALCIUM-PROTEIN CORRECTED 8.1 MG/DL (8.5-10.1)
[2017-01-25] MEDS: RESP: ALBUTEROL 2.5 MG/IPRATROPIUM 0.5 MG NEB (SCH) NEB ×2 (08:44→12:10)
[2017-01-25] MEDS: SODIUM CHLORIDE 0.9% FLUSH 10 ML FLUSH IV FLUSH SCH ×3 (09:22→20:12)
[2017-01-25] MEDS: CHLORHEXIDINE 0.12% (ORAL KIT) 15 ML CUP MT SCH ×2 (09:22→20:12)
--- NOTE | 2017-01-25 10:57 | HHI.CCPN ---
Subjective Remarks/Hospital Course 66 y/o man has developed respiratory failure following a laparoscopic partial gastrectomy performed 01/17. He was brought to the [facility] where I met him on his arrival. Intubated for hypoxemic failure and lines placed. After 2 liters NS patient making > 40 ml/hr urine. Arrived in atrial fibrillation with rate 160s, converted after fluid, analgesia, and lopressor 5 mg X 1.Loaded with antibiotics. Family is aware. 01/25: Completion gastric resection and resuscitation. Urine output marginal but perfusion good. Tapering vasopressors. Objective Vital Signs Date Time Temp Pulse Resp B/P Pulse Ox O2 Delivery O2 Flow Rate FiO2 01/25/17 10:00 99 01/25/17 08:44 100 40 01/25/17 08:00 100.0 14 92/53 01/25/17 07:00 Mechanical Ventilator 01/24/17 12:53 6.00 Intake and Output 01/24/17 01/24/17 01/24/17 07:59 15:59 23:59 Intake Total 2216 ml 673 ml 869 ml Output Total 650 ml 2310 ml Balance 1566 ml 673 ml -1441 ml Result Diagram: 01/25/17 0604 01/25/17 0604 Other Results Laboratory Tests Test 01/24/17 01/24/17 01/24/17 13:50 14:48 18:12 Blood Gas Puncture Site RT RADIAL ART LINE DRAWN IN OR Blood Gas Patient Temperature 98.6 98.6 98.6 Blood Gas HCO3 27 mmol/L 25 mmol/L 20 mmol/L (22-26) (22-26) (22-26) Blood Gas Base Excess 3.0 mmol/L 0.9 mmol/L -4.5 mmol/L (-2-2) (-2-2) (-2-2) Blood Gas Oxygen Saturation 96 % (90-100) 97 % (90-100) 96 % (90-100) Arterial Blood pH 7.46 7.42 7.38 (7.380-7.420) (7.380-7.420) (7.380-7.420) Arterial Blood Partial 39 mmHg (38-42) 39 mmHg (38-42) 34 mmHg (38-42) Pressure CO2 Arterial Blood Partial 100 mmHg 269 mmHg 205 mmHg Pressure O2 (61-120) (61-120) (61-120) Arterial Blood Oxygen Content 19.8 Vol % 18.0 Vol % 15.4 Vol % (12.0-20.0) (12.0-20.0) (12.0-20.0) Arterial Blood 1.3 % (0-4) 1.1 % (0-4) 1.5 % (0-4) Carboxyhemoglobin Arterial Blood Methemoglobin 1.0 % (0-2) 0.9 % (0-2) 1.4 % (0-2) Blood Gas Hemoglobin 14.7 G/DL 12.7 G/DL 11.0 G/DL (12.0-16.0) (12.0-16.0) (12.0-16.0) Oxygen Delivery Device Non-Rebreathing VENTILATOR VENTILATOR Mask Blood Gas Liter Flow 15 L/M Blood Gas Inspired Oxygen 100 % 100 % Blood Gas Ventilator Setting PRVC/AC DRAWN IN OR Objective Remarks Gen: Ill-appearing, sedated. Head: NL. Neck: Supple, airway widely patent. Lungs: Decreased breath sounds both bases, clear otherwise. Tachypnea, Sats 89% on NRBM. Heart: NL S1S2, Reg with occ PMB, no JVD. Abdomen: Mildly distended, soft. Post-surgical. Quiet. Extremities: Warm, dry. Neuro: Sedated. Moves 4 limbs spontaneously. YESENIA. 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 PRVC vent mode. 2. NS 2 liters again, follow CVP. 3. Produce urine > 40/hr. 4. PIP/DANIELLE iv. 5. ABG a.m.. 6. No movement of NG tube - gastric anastomosis.. 7. Soto. 8. A-line, CVL. 9. Start TPN back. 10. Confirm correction of lactic acidosis. Overall impression: Critically ill following anastomotic leak and localized peritonitis. Unstable hemodynamics on arrival and septic appearance. Resuscitate and proceeded to OR for completion gastrectomy. Remains unstable. Critical care 39 mins aside from procedures Pk Romero MD Jan 25, 2017 10:57
[2017-01-25] MEDS ORDERED: GLUCAGON 1 MG/ML VIAL OTHER PRN (11:00)
[2017-01-25] MEDS ORDERED: DEXTROSE 50% IN WATER 50 ML VIAL(D50) IV PRN (11:00)
--- NOTE | 2017-01-25 12:18 | HHI.PR ---
Subjective Subjective Notes Intubated/Sedated Daughter at bedside RN Nikko at bedside Objective Vitals/I&O Vital Signs Date Time Temp Pulse Resp B/P Pulse Ox O2 Delivery O2 Flow Rate FiO2 01/25/17 12:06 100 40 01/25/17 10:00 99 01/25/17 08:00 100.0 14 92/53 01/25/17 07:00 Mechanical Ventilator 01/24/17 12:53 6.00 Labs Laboratory Tests Test 01/24/17 01/24/17 01/24/17 01/24/17 13:50 14:30 14:48 16:30 Blood Gas Puncture Site RT RADIAL ART LINE Blood Gas Patient Temperature 98.6 98.6 Blood Gas HCO3 27 25 Blood Gas Base Excess 3.0 0.9 Blood Gas Oxygen Saturation 96 97 Arterial Blood pH 7.46 7.42 Arterial Blood Partial 39 39 Pressure CO2 Arterial Blood Partial 100 269 Pressure O2 Arterial Blood Oxygen Content 19.8 18.0 Arterial Blood 1.3 1.1 Carboxyhemoglobin Arterial Blood Methemoglobin 1.0 0.9 Blood Gas Hemoglobin 14.7 12.7 Oxygen Delivery Device Non-Rebreathing VENTILATOR Mask Blood Gas Liter Flow 15 Blood Gas Inspired Oxygen 100 100 Nasal Screen MRSA (PCR) MRSA NOT DETECTED Blood Gas Ventilator Setting PRVC/AC Blood Type A POSITIVE Antibody Screen NEGATIVE Crossmatch Leukocyte-Reduced Red Blood Cells Blood Bank Comment Test 01/24/17 01/24/17 01/24/17 01/24/17 16:35 18:12 19:49 23:42 Blood Type A POSITIVE Blood Gas Puncture Site DRAWN IN OR Blood Gas Patient Temperature 98.6 Blood Gas HCO3 20 Blood Gas Base Excess -4.5 Blood Gas Oxygen Saturation 96 Arterial Blood pH 7.38 Arterial Blood Partial 34 Pressure CO2 Arterial Blood Partial 205 Pressure O2 Arterial Blood Oxygen Content 15.4 Arterial Blood 1.5 Carboxyhemoglobin Arterial Blood Methemoglobin 1.4 Blood Gas Hemoglobin 11.0 Oxygen Delivery Device VENTILATOR Blood Gas Ventilator Setting DRAWN IN OR Hemoglobin 13.0 Hematocrit 39.8 Sodium Level 139 Potassium Level 3.7 Chloride Level 106 Carbon Dioxide Level 26.2 Anion Gap 7 Blood Urea Nitrogen 6 Creatinine 0.51 Estimat Glomerular Filtration 164 Rate Random Glucose 223 Lactic Acid Level 2.4 Calcium Level 6.7 Protein Corrected Calcium 7.8 Magnesium Level 2.2 Total Bilirubin 0.9 Aspartate Amino Transf 197 (AST/SGOT) Alanine Aminotransferase 151 (ALT/SGPT) Alkaline Phosphatase 63 Total Protein 4.9 Albumin 1.5 Test 01/25/17 06:04 White Blood Count 18.2 Red Blood Count 3.97 Hemoglobin 12.8 Hematocrit 39.0 Mean Corpuscular Volume 98.2 Mean Corpuscular Hemoglobin 32.2 Mean Corpuscular Hemoglobin 32.8 Concent Red Cell Distribution Width 13.6 Platelet Count 230 Mean Platelet Volume 8.3 Neutrophils (%) (Auto) 88.5 Lymphocytes (%) (Auto) 7.1 Monocytes (%) (Auto) 4.0 Eosinophils (%) (Auto) 0.1 Basophils (%) (Auto) 0.3 Neutrophils # (Auto) 16.1 Lymphocytes # (Auto) 1.3 Monocytes # (Auto) 0.7 Eosinophils # (Auto) 0.0 Basophils # (Auto) 0.1 CBC Comment DIFF FINAL Differential Comment Sodium Level 138 Potassium Level 3.9 Chloride Level 106 Carbon Dioxide Level 24.7 Anion Gap 7 Blood Urea Nitrogen 7 Creatinine 0.51 Estimat Glomerular Filtration 164 Rate Random Glucose 274 Calcium Level 6.7 Protein Corrected Calcium 8.1 Total Protein 4.4 Cardiovascular: Regular Lungs: Clear Abdomen: Other (midline incision with dressing in place; stapled; no drainage; ANDREW x2 with serous fluid; J tube to gravity bag; abdomen minimaly distended ) Extremities: Other (moderate generalized edema) Narrative Exam Bilateral chest tubes to wall suction A/P Assessment and Plan 66 year old male POD8 laparoscopic gastrectomy and cholecystectomy with Botox injection; POD1 bilateral thoracostomy tube placement; open subtotal gastrectomy ; jejunostomy tube placement -NGT to LIWS -IVF----resuscitate with fluids---currently receiving bolus -TPN -Continue ANDREW management -Await pathology -Appreciate [employer] consult Attending Statement The exam, history, and the medical decision-making described in the above note were completed with the assistance of the mid-level provider. I reviewed and agree with the findings presented. I attest that I had a [id number] encounter with the patient on the same day, and personally performed and documented my assessment and findings in the medical record. Abdominal exam: soft, non-distended, no rebound tenderness, postoperative incisional pain remains intubated postop for respiratory failure, appreciate vb net programmer help Es Solis Jan 25, 2017 12:18 Josh Ritchie MD Feb 07, 2017 14:20
[2017-01-25] MEDS: INSULIN ASPART SUPPLEMENTAL SCALE SQ SCH ×2 (12:30→17:46)
[2017-01-25] MEDS: PANTOPRAZOLE SODIUM 40 MG VIAL IV SCH (17:45)
[2017-01-25] MEDS: DEXTROSE 10% INJ 1,000 ML IV SCH (17:45)
[2017-01-25] MEDS ORDERED: CLINIMIX E 4.25/25 2000 mL- >42 mls/hr IV-CENTRAL SCH ×3 (20:00)
[2017-01-25] MEDS: FAT EMULSION 20% INJ 250 ML (Daily over 8 hours) IV-CENTRAL SCH (20:08)
[2017-01-25] MEDS: PROPOFOL 1000 MG/100 ML INJ 100 ML IV SCH (20:12)
[2017-01-25] MEDS: MULTIVITAMIN INJ 10 ML, FOLIC ACID INJ 1 MG, INSULIN HUMAN REGULAR INJ 20 UNITS in AMIN... IV-CENTRAL SCH (20:22)
[2017-01-25] MEDS: LEVOFLOXACIN 500 MG PREMIX INJ 100 ML IV SCH (22:15)
[2017-01-26] VITALS (18 sets, daily range): BP systolic 88–144; BP diastolic 50–70; PULSE 89–110; RESP 14–16; TEMP 99.7–100.4; O2SAT 97–100
[2017-01-26] MEDS: PIPERACIL-TAZO 4.5 GM PREMIX 100 ML IV SCH ×4 (04:59→21:45)
[2017-01-26] MEDS: PROPOFOL 1000 MG/100 ML INJ 100 ML IV SCH ×2 (05:00→16:05)
[2017-01-26] MEDS: ACETAMINOPHEN 1000 MG/100 ML VIAL IV SCH ×3 (05:00→16:05)
[2017-01-26] MEDS: PCA - TOTAL MG DILAUDID DELIVERED PER SHIFT OTHER SCH ×2 (05:00→12:49)
[2017-01-26 05:49] LABS: AUTOMATED NEUTROPHIL # 24.7 TH/MM3 (1.8-7.7); BASOPHIL % 0.2 % (0.0-2.0); EOSINOPHIL # 0.1 TH/MM3 (0-0.4); EOSINOPHIL % 0.5 % (0.0-4.0); HEMATOCRIT 35.8 % (39.0-51.0); HEMO FLAGS DIFF FINAL; LYMPH % 4.5 % (9.0-44.0); LYMPHOCYTE # 1.2 TH/MM3 (1.0-4.8); MEAN CELL VOLUME 97.4 FL (80.0-100.0); MEAN CORPUSCULAR HEMOGLOBIN 32.3 PG (27.0-34.0); MEAN CORPUSCULAR HGB CONC 33.1 % (32.0-36.0); MONO % 3.6 % (0.0-8.0); NEUT % 91.2 % (16.0-70.0); PLATELET COUNT 192 TH/MM3 (150-450); RED BLOOD COUNT 3.68 MIL/MM3 (4.50-5.90); RED CELL DISTRIBUTION WIDTH 13.6 % (11.6-17.2); WHITE BLOOD COUNT 27.1 TH/MM3 (4.0-11.0)
[2017-01-26 06:07] LABS: BICARBONATE 29.9 MEQ/L (21.0-32.0); POTASSIUM 3.6 MEQ/L (3.5-5.1)
[2017-01-26 06:24] LABS: CALCIUM-PROTEIN CORRECTED 8.2 MG/DL (8.5-10.1)
[2017-01-26] MEDS: fentaNYL DRIP 250 ML IV SCH ×2 (06:25→16:05)
[2017-01-26] MEDS: INSULIN ASPART SUPPLEMENTAL SCALE SQ SCH ×4 (06:27→20:00)
[2017-01-26] MEDS: SODIUM CHLORIDE 0.9% FLUSH 10 ML FLUSH IV FLUSH SCH ×3 (07:33→21:00)
[2017-01-26] MEDS: CHLORHEXIDINE 0.12% (ORAL KIT) 15 ML CUP MT SCH ×2 (07:33→20:00)
--- NOTE | 2017-01-26 11:20 | PD.WCN.NOT ---
Wound Consult Description: blanchable erythema to sacral area. Communicated with: Nikko [facility] [place] Rowan EPSTEIN [facility] Recommendation: Please cleanse buttock area gently with soap and water and dry thoroughly apply skin prep and cover sacral area with adhesive foam dressing and change PRN to prevent pressure injury. Additional Information: Patient seen on [facility] for evaluation of buttock wound. Patient turned to L side with the assistance of Nikko [facility] and administrative underwriter to reveal adhesive foam dressing in place over sacral area. Removed adhesive foam dressing in place to reveal slight blanchable erythema to sacral area.Patient is noted dry buttock area without diaphoresis.Applied skin prep over area and applied adhesive foam dressing over sacral area for pressure injury prevention. Tiesha Vegas [facility] Jan 26, 2017 11:20
--- NOTE | 2017-01-26 14:34 | HHI.CCPN ---
Subjective Remarks/Hospital Course 66 y/o man has developed respiratory failure following a laparoscopic partial gastrectomy performed 01/17. He was brought to the [facility] where I met him on his arrival. Intubated for hypoxemic failure and lines placed. After 2 liters NS patient making > 40 ml/hr urine. Arrived in atrial fibrillation with rate 160s, converted after fluid, analgesia, and lopressor 5 mg X 1.Loaded with antibiotics. Family is aware. 01/25: Completion gastric resection and resuscitation. Urine output marginal but perfusion good. Tapering vasopressors. Subjective 01/26: Off all vasopressors. Tmax 100.4. Currently 100.2. Tolerating TPN. White cell count elevated 27,000. Arousable and follows commands on the ventilator. Objective Vital Signs Date Time Temp Pulse Resp B/P Pulse Ox O2 Delivery O2 Flow Rate FiO2 01/26/17 12:00 100.2 103 14 123/65 100 01/26/17 12:00 40 01/26/17 07:00 Mechanical Ventilator 01/24/17 12:53 6.00 Intake and Output 01/25/17 01/25/17 01/25/17 07:59 15:59 23:59 Intake Total 625 ml 2642 ml 701 ml Output Total 1135 ml 1110 ml 800 ml Balance -510 ml 1532 ml -99 ml Result Diagram: 01/26/17 0526 01/26/17 0526 Imaging Last Impressions Chest X-Ray 01/24/17 0000 Signed Impressions: Service Date/Time: Tuesday, January 24, 2017 15:06 - CONCLUSION: Unchanged bilateral pleural effusions and bilateral pulmonary infiltrates. Chalino Olmedo Jr., MD Chest Ultrasound 01/24/17 0000 Signed Impressions: Service Date/Time: Tuesday, January 24, 2017 11:13 - CONCLUSION: 1. Large left pleural effusion. Jayson Das MD Chest CT 01/23/17 0000 Signed Impressions: Service Date/Time: Monday, January 23, 2017 18:54 - CONCLUSION: 1. Moderate-sized bilateral pleural effusions. Right pleural effusion has several small areas of loculation as above. 2. Bilateral lower lobe consolidation. 3. Somewhat mass like fullness in the right infrahilar region. A contrast- enhanced CT of the chest is recommended, preferably after resolution of pleural effusions and bibasilar consolidation. Gonzales Pierre MD Upper GI/Barium Swallow X-Ray 01/22/17 0000 Signed Impressions: Service Date/Time: Sunday, January 22, 2017 12:29 - CONCLUSION: 1. Findings suspicious for a small leak at the gastroesophageal junction with contrast pooling into an air fluid collection adjacent to the GE junction and distal esophagus. There was an end to side anastomosis performed so it is possible, but felt unlikely, that the collection represents a portion of the proximal stomach. 2. Findings were discussed with Dr. Ritchie. Gonzales Ramsay MD Abdomen CT 01/22/17 0000 Signed Impressions: Service Date/Time: Sunday, January 22, 2017 17:12 - CONCLUSION: 1. There is an abnormal air and fluid collection located to the right of the GE junction adjacent to the proximal stomach. It extends into the posterior mediastinum. The current appearance and findings on fluoroscopy examination earlier today are indicative of a leak at the anastomosis. The current surgical drain is not directly adjacent to the collection and based on the location I do not think that we could place a drain in an appropriate location percutaneously. 2. Small bilateral pleural effusions with associated atelectasis and/or consolidation in both lower lobes. Gonzales Ramsay MD Objective Remarks Gen: 66-year-old male, critically ill currently orotracheally intubated with nasogastric tube right nares Head: NL. Atraumatic. Neck: Supple, airway widely patent. Lungs: Decreased breath sounds both bases, clear otherwise. Bilateral chest tubes in place Heart: NL S1S2, no murmur appreciated Abdomen: Mildly distended, soft. Post-surgical. Isidro drain on left/right. J- tube on left. Extremities: Warm, dry. We'll perfused Neuro: Sedated. Moves 4 limbs spontaneously. YESENIA. A/P Problem List: (1) Acute hypoxemic respiratory failure ICD Code: J96.01 Status: Acute (2) Primary adenocarcinoma of distal third of esophagus ICD Code: C15.5 Status: Acute Assessment and Plan Neuro/Psych: Chronic Benzodiazepine use Chronic muscle relaxant use Currently on propofol at 20 mics grams per kilogram minutes/fentanyl drip at 200 mics grams an hour for sedation/analgesia while intubated RA SS -2 Daily sedation vacation Patient is on alprazolam 0.25 mg twice a day and diazepam 5 mill grams twice a day when necessary for anxiety at home. Patient is on Flexeril as needed muscle relaxant home. CV: A. fib with RVR currently normal sinus rhythm History of hypertension History of dyslipidemia Holding home medications of amlodipine 5 mg twice a day and losartan 50 mg twice a day in light of borderline blood pressures Resp: Acute hypercapnic respiratory failure PRVC 14/550/06/15/34 Ventilator bundle As needed albuterol nebulizers every 2 hours. Dyspnea Spontaneous breathing trials and clinically indicated Follow-up chest x-ray in a.m. GI: 01/19 -cholecystectomy, proximal gastrectomy with GE junction anastomosis and Botox injection by Dr. Benson 01/24 - bilateral chest tubes/open subtotal gastrectomy and jejunostomy placement Gastroesophageal reflux disease Holding lansoprazole 30 mg by mouth daily. Currently on pantoprazole 40 mg IV daily Currently on TPN at 83 cc an hour with lipids over 8 hours daily Isidro tubes left/right 35/65 serosanguineous. J-tube 375. NG tube 200. : Soto catheter for accurate I's and O's in a critically ill patient Endo: Sliding-scale insulin with Novulog every 4 hours/medium. Add Levemir 5 twice a day. 20 units insulin in TPN. Renal: Creatinine currently within normal limits. Accurate I's and O's Follow BMP in a.m. Heme: Leukocytosis Normocytic anemia Monitor CBC daily. Follow trends ID: Currently on Zosyn/Levaquin daily Blood cultures 2 no growth to date FEN: Replace electrolytes as clinically indicated MSK: Range of motion Access - Right subclavian CVL day #3 Prophylaxis - GI - pantoprazole - DVT - SCD/pharmacological prophylaxis when okay with surgery Level III follow-up Mateusz Wang MD Jan 26, 2017 14:34
[2017-01-26] MEDS: PANTOPRAZOLE SODIUM 40 MG VIAL IV SCH (16:05)
[2017-01-26] MEDS: DEXTROSE 10% INJ 1,000 ML IV SCH (16:06)
--- NOTE | 2017-01-26 19:34 | HHI.PR ---
Subjective Subjective Notes Intubated/Sedated Objective Vitals/I&O Vital Signs Date Time Temp Pulse Resp B/P Pulse Ox O2 Delivery O2 Flow Rate FiO2 01/26/17 16:02 100 35 01/26/17 16:00 99.9 100 16 143/67 01/26/17 07:00 Mechanical Ventilator 01/24/17 12:53 6.00 Labs Laboratory Tests Test 01/26/17 05:26 White Blood Count 27.1 Red Blood Count 3.68 Hemoglobin 11.9 Hematocrit 35.8 Mean Corpuscular Volume 97.4 Mean Corpuscular Hemoglobin 32.3 Mean Corpuscular Hemoglobin 33.1 Concent Red Cell Distribution Width 13.6 Platelet Count 192 Mean Platelet Volume 8.6 Neutrophils (%) (Auto) 91.2 Lymphocytes (%) (Auto) 4.5 Monocytes (%) (Auto) 3.6 Eosinophils (%) (Auto) 0.5 Basophils (%) (Auto) 0.2 Neutrophils # (Auto) 24.7 Lymphocytes # (Auto) 1.2 Monocytes # (Auto) 1.0 Eosinophils # (Auto) 0.1 Basophils # (Auto) 0.0 CBC Comment DIFF FINAL Differential Comment Sodium Level 138 Potassium Level 3.6 Chloride Level 104 Carbon Dioxide Level 29.9 Anion Gap 4 Blood Urea Nitrogen 6 Creatinine 0.53 Estimat Glomerular Filtration 157 Rate Random Glucose 246 Calcium Level 6.8 Protein Corrected Calcium 8.2 Total Protein 4.5 Cardiovascular: Regular Lungs: Clear Abdomen: Other (midline incision with allie---c/d/i; Jtube capped; ANDREW x2 with serous fluid ) Extremities: Other (moderate generalized edema ) Narrative Exam Bilateral chest tubes to wall suction A/P Assessment and Plan 66 year old male POD9 laparoscopic gastrectomy and cholecystectomy with Botox injection; POD2 bilateral thoracostomy tube placement; open subtotal gastrectomy ; jejunostomy tube placement -NGT to LIWS -IVF 0J tube capped -TPN -Continue ANDREW management -Await pathology -Appreciate Motor Patrol Operator consult Attending Statement The exam, history, and the medical decision-making described in the above note were completed with the assistance of the mid-level provider. I reviewed and agree with the findings presented. I attest that I had a [id number] encounter with the patient on the same day, and personally performed and documented my assessment and findings in the medical record. Abdominal exam: soft, non-distended, ANDREW with cloudy fluid, likely from abscess from previous leak/infection Es Solis Jan 26, 2017 19:34 Josh Ritchie MD Feb 07, 2017 14:22
[2017-01-26] MEDS ORDERED: INSULIN DETEMIR 100 UNITS/ML VIAL SQ SCH (21:00)
[2017-01-26] MEDS: LEVOFLOXACIN 500 MG PREMIX INJ 100 ML IV SCH (21:45)
[2017-01-26] MEDS: FAT EMULSION 20% INJ 250 ML (Daily over 8 hours) IV-CENTRAL SCH (21:46)
[2017-01-26] MEDS: MULTIVITAMIN INJ 10 ML, FOLIC ACID INJ 1 MG, INSULIN HUMAN REGULAR INJ 20 UNITS in AMIN... IV-CENTRAL SCH (21:47)
[2017-01-27] VITALS (17 sets, daily range): BP systolic 90–140; BP diastolic 54–64; PULSE 73–144; RESP 14–18; TEMP 99.5–101.5; O2SAT 93–100
[2017-01-27] MEDS: PROPOFOL 1000 MG/100 ML INJ 100 ML IV SCH ×7 (00:58→23:23)
[2017-01-27] MEDS: HYDROmorphone HCL PF 1 MG/ML VIAL IV PRN ×2 (03:52→23:16)
[2017-01-27] MEDS: PIPERACIL-TAZO 4.5 GM PREMIX 100 ML IV SCH ×4 (03:53→20:50)
[2017-01-27] MEDS: INSULIN ASPART SUPPLEMENTAL SCALE SQ SCH ×6 (04:00→20:00)
[2017-01-27 04:46] LABS: AUTOMATED NEUTROPHIL # 24.3 TH/MM3 (1.8-7.7); BASOPHIL # 0.1 TH/MM3 (0-0.2); BASOPHIL % 0.4 % (0.0-2.0); EOSINOPHIL # 0.3 TH/MM3 (0-0.4); HEMATOCRIT 34.8 % (39.0-51.0); LYMPH % 8.2 % (9.0-44.0); LYMPHOCYTE # 2.3 TH/MM3 (1.0-4.8); MEAN CELL VOLUME 97.3 FL (80.0-100.0); MEAN CORPUSCULAR HEMOGLOBIN 32.4 PG (27.0-34.0); MEAN CORPUSCULAR HGB CONC 33.3 % (32.0-36.0); MONO % 3.3 % (0.0-8.0); NEUT % 87.1 % (16.0-70.0); PLATELET COUNT 192 TH/MM3 (150-450); RED BLOOD COUNT 3.58 MIL/MM3 (4.50-5.90); RED CELL DISTRIBUTION WIDTH 13.2 % (11.6-17.2); WHITE BLOOD COUNT 27.9 TH/MM3 (4.0-11.0)
[2017-01-27 04:52] LABS: HEMO FLAGS AUTO DIFF
[2017-01-27 05:26] LABS: BICARBONATE 30.4 MEQ/L (21.0-32.0); CALCIUM-PROTEIN CORRECTED 8.5 MG/DL (8.5-10.1); POTASSIUM 3.7 MEQ/L (3.5-5.1); TOTAL BILIRUBIN ADULT 0.3 MG/DL (0.2-1.0)
[2017-01-27] MEDS: fentaNYL DRIP 250 ML IV SCH ×2 (05:32→14:12)
--- NOTE | 2017-01-27 06:22 | RADRPT ---
EXAM DATE/TIME: 01/27/2017 04:22 [facility] COMPARISON: CHEST SINGLE AP, January 24, 2017, 15:06. INDICATIONS : Respiratory failure MEDICAL HISTORY : Hypertension. Gastroesophageal reflux disease. Hernia, hiatal. Stomach SURGICAL HISTORY : None. ENCOUNTER: Subsequent ACUITY: 1 week PAIN SCORE: Non-responsive. LOCATION: Bilateral chest FINDINGS: A single view of the chest demonstrates endotracheal tube in satisfactory position. NG tip in stomach . Small caliber bilateral chest tubes present without significant pneumothorax. 2 right central lines in superior vena cava. CONCLUSION: 1. Support apparatus in satisfactory position. Mild basilar airspace disease. No pneumothorax. Trace pleural fluid remains on the left. Jordan Lozano MD on January 27, 2017 at 6:19 Board Certified Radiologist. This report was verified electronically.
--- NOTE | 2017-01-27 07:21 | HHI.CCPN ---
Subjective Remarks/Hospital Course 66 y/o man has developed respiratory failure following a laparoscopic partial gastrectomy performed 01/17. He was brought to the [facility] where I met him on his arrival. Intubated for hypoxemic failure and lines placed. After 2 liters NS patient making > 40 ml/hr urine. Arrived in atrial fibrillation with rate 160s, converted after fluid, analgesia, and lopressor 5 mg X 1.Loaded with antibiotics. Family is aware. 01/25: Completion gastric resection and resuscitation. Urine output marginal but perfusion good. Tapering vasopressors. 01/26: Off all vasopressors. Tmax 100.4. Currently 100.2. Tolerating TPN. White cell count elevated 27,000. Arousable and follows commands on the ventilator. Subjective 01/27: Tmax 101.5. Pancultured including blood 2 from peripheral access and sputum. Added vancomycin. Arousable doesn't follow commands. Cultures sent from around surgical site. Objective Vital Signs Date Time Temp Pulse Resp B/P Pulse Ox O2 Delivery O2 Flow Rate FiO2 01/27/17 06:00 100 01/27/17 04:22 15 01/27/17 04:04 95 35 01/27/17 04:00 101.5 115/57 01/26/17 19:00 Mechanical Ventilator 01/24/17 12:53 6.00 Intake and Output 01/26/17 01/26/17 01/27/17 08:00 16:00 00:00 Intake Total 1232 ml 1125 ml 1400 ml Output Total 665 ml 880 ml 545 ml Balance 567 ml 245 ml 855 ml Result Diagram: 01/27/17 0400 01/27/17 0400 Other Results Microbiology Date/Time Procedure Status Source Growth 01/27/17 04:55 Gram Stain Received Wound Abdomen Pending 01/27/17 04:55 Wound Culture Received Wound Abdomen Pending Imaging Last Impressions Chest X-Ray 01/27/17 0600 Signed Impressions: Service Date/Time: Friday, January 27, 2017 04:22 - CONCLUSION: 1. Support apparatus in satisfactory position. Mild basilar airspace disease. No pneumothorax. Trace pleural fluid remains on the left. Jordan Lozano MD Chest Ultrasound 01/24/17 0000 Signed Impressions: Service Date/Time: Tuesday, January 24, 2017 11:13 - CONCLUSION: 1. Large left pleural effusion. Jayson Das MD Chest CT 01/23/17 0000 Signed Impressions: Service Date/Time: Monday, January 23, 2017 18:54 - CONCLUSION: 1. Moderate-sized bilateral pleural effusions. Right pleural effusion has several small areas of loculation as above. 2. Bilateral lower lobe consolidation. 3. Somewhat mass like fullness in the right infrahilar region. A contrast- enhanced CT of the chest is recommended, preferably after resolution of pleural effusions and bibasilar consolidation. Gonzales Pierre MD Upper GI/Barium Swallow X-Ray 01/22/17 0000 Signed Impressions: Service Date/Time: Sunday, January 22, 2017 12:29 - CONCLUSION: 1. Findings suspicious for a small leak at the gastroesophageal junction with contrast pooling into an air fluid collection adjacent to the GE junction and distal esophagus. There was an end to side anastomosis performed so it is possible, but felt unlikely, that the collection represents a portion of the proximal stomach. 2. Findings were discussed with Dr. Ritchie. Gonzales Ramsay MD Abdomen CT 01/22/17 0000 Signed Impressions: Service Date/Time: Sunday, January 22, 2017 17:12 - CONCLUSION: 1. There is an abnormal air and fluid collection located to the right of the GE junction adjacent to the proximal stomach. It extends into the posterior mediastinum. The current appearance and findings on fluoroscopy examination earlier today are indicative of a leak at the anastomosis. The current surgical drain is not directly adjacent to the collection and based on the location I do not think that we could place a drain in an appropriate location percutaneously. 2. Small bilateral pleural effusions with associated atelectasis and/or consolidation in both lower lobes. Gonzales Ramsay MD Objective Remarks Gen: 66-year-old male, critically ill currently orotracheally intubated with nasogastric tube right nares Head: NL. Atraumatic. Neck: Supple, airway widely patent. Lungs: Decreased breath sounds both bases, clear otherwise. Bilateral chest tubes in place Heart: NL S1S2, no murmur appreciated Abdomen: Mildly distended, soft. Post-surgical. Isidro drain on left/right. J- tube on left. Extremities: Warm, dry. We'll perfused Neuro: Sedated. Moves 4 limbs spontaneously. YESENIA. A/P Problem List: (1) Acute hypoxemic respiratory failure ICD Code: J96.01 Status: Acute (2) Primary adenocarcinoma of distal third of esophagus ICD Code: C15.5 Status: Acute Assessment and Plan Neuro/Psych: Chronic Benzodiazepine use Chronic muscle relaxant use Currently on propofol at 40 mics grams per kilogram minutes/fentanyl drip at 250 mics grams an hour for sedation/analgesia while intubated RA SS -2 Daily sedation vacation Patient is on alprazolam 0.25 mg twice a day and diazepam 5 mill grams twice a day when necessary for anxiety at home. Patient is on Flexeril as needed muscle relaxant home. CV: A. fib with RVR currently normal sinus rhythm History of hypertension History of dyslipidemia Holding home medications of amlodipine 5 mg twice a day and losartan 50 mg twice a day in light of borderline blood pressures Currently on TPN at 83 cc an hour. Not requiring vasopressors and/or anti-hypertensives at the current time Resp: Acute hypercapnic respiratory failure Bilateral chest of secondary pleural effusions PRVC 14//06/15/34 Ventilator bundle Scheduled due nebs every 6 hours with albuterol nebulizers every 2 hours. Dyspnea Spontaneous breathing trials as clinically indicated Follow-up chest x-ray in a.m. reveals no pneumothorax. Stable left lower lobe infiltrates. Left -345/right -190. 20 cm H2O GI: 01/19 -cholecystectomy, proximal gastrectomy with GE junction anastomosis and Botox injection by Dr. Benson 01/24 - bilateral chest tubes/open subtotal gastrectomy and jejunostomy placement Gastroesophageal reflux disease Holding lansoprazole 30 mg by mouth daily. Currently on pantoprazole 40 mg IV daily Currently on TPN at 83 cc an hour. Discontinue lipids while on Diprivan Isidro tubes left/right serosanguineous. J-tube 165. No bowel movement 4 days : Soto catheter for accurate I's and O's in a critically ill patient Endo: Sliding-scale insulin with Novulog every 4 hours/medium. Add Levemir 10 twice a day. 20 units insulin in TPN. Renal: Creatinine currently within normal limits. Accurate I's and O's Follow BMP in a.m. Heme: Leukocytosis Normocytic anemia Monitor CBC daily. Follow trends ID: Currently on Zosyn/Levaquin daily added vancomycin 01/27 Blood cultures 2 one for 01/27). Wound culture pending FEN: Replace electrolytes as clinically indicated MSK: Range of motion Access - Right subclavian CVL day #4/right upper extremity PICC. Discontinue right radial arterial line today Prophylaxis - GI - pantoprazole - DVT - SCD/pharmacological prophylaxis when okay with surgery Level III follow-up Mateusz Wang MD Jan 27, 2017 07:20
[2017-01-27] MEDS ORDERED: Vancomycin Consult Pharmacy 1 EA OTHER SCH (07:30)
[2017-01-27] MEDS ORDERED: POTASSIUM PHOSPHATE INJ 30 MMOL in SODIUM CHLOR 0.9% 250 ML INJ 250 ML IV ONE (08:00)
[2017-01-27 08:06] LABS: BANDS 14 % (0-6); EOSINOPHILS 1 % (0-4); NEUTROPHIL # MANUAL DIFF 23.7 TH/MM3 (1.8-7.7); POLYS (SEG NEUTROPHILS) 71 % (16-70); WBC DIFF SAMPLE 100
[2017-01-27 08:07] LABS: PLATELET ESTIMATE SMEAR NORMAL (NORMAL); PLATELET MORPHOLOGY NORMAL (NORMAL); SCAN/DIFF FINAL DIFF MANUAL; TOXIC GRANULATION 1+ (NORMAL)
[2017-01-27] MEDS: INSULIN DETEMIR 100 UNITS/ML VIAL SQ SCH ×2 (08:53→21:25)
[2017-01-27] MEDS: SODIUM CHLORIDE 0.9% FLUSH 10 ML FLUSH IV FLUSH SCH ×3 (09:00→21:27)
[2017-01-27] MEDS: CHLORHEXIDINE 0.12% (ORAL KIT) 15 ML CUP MT SCH ×2 (09:25→20:54)
[2017-01-27] MEDS: VANCOMYCIN 1,500 MG/NS 500 ML IV SCH ×4 (09:56→21:27)
[2017-01-27] MEDS ORDERED: METOPROLOL TARTRATE 5 MG/5 ML VIAL IV PUSH ONE ×2 (10:30→15:45)
[2017-01-27] MEDS ORDERED: DIGOXIN 0.5 MG/2 ML VIAL IV PUSH ONE ×2 (11:00→17:00)
[2017-01-27] MEDS ORDERED: METOPROLOL TARTRATE 5 MG/5 ML VIAL IV PUSH SCH ×2 (12:00)
--- NOTE | 2017-01-27 13:32 | RADRPT ---
EXAM DATE/TIME: 01/27/2017 12:49 [facility] COMPARISON: No previous studies available for comparison. INDICATIONS : Bilateral leg edema. MEDICAL HISTORY : Hypertension. Gastroesophageal reflux disease. Hernia, hiatal. Osteoarthritis. Stomach and esophage al carcinoma. SURGICAL HISTORY : Cataract surgery. Abdominal surgery, unspecified. Bilateral knee arthroscopy. Right elbow surgery. Right carpal tunnel release. ENCOUNTER: Initial ACUITY: 2 day PAIN SCORE: Non-responsive LOCATION: Bilateral legs. TECHNIQUE: Venous ultrasound of the left and right leg was performed from the inguinal ligament to the proximal calf. Real-time, color Doppler and spectral tracing, compression and augmentation techniques were us ed. FINDINGS: RIGHT LEG: There is normal compressibility of the deep venous system from the inguinal region to the proximal ca lf. No echogenic clot is seen in the lumen of the common femoral, femoral, popliteal, and posterior tibial veins. LEFT LEG: There is normal compressibility of the deep venous system from the inguinal region to the proximal ca lf. No echogenic clot is seen in the lumen of the common femoral, femoral, popliteal, and posterior tibial veins. CONCLUSION: No DVT in either lower extremity. Elijah Funes MD on January 27, 2017 at 13:30 Board Certified Radiologist. This report was verified electronically.
[2017-01-27] MEDS: ACETAMINOPHEN 1000 MG/100 ML VIAL IV PRN (14:26)
[2017-01-27] MEDS: PANTOPRAZOLE SODIUM 40 MG VIAL IV SCH (17:06)
[2017-01-27] MEDS: DEXTROSE 10% INJ 1,000 ML IV SCH (17:36)
[2017-01-27] MEDS: LEVOFLOXACIN 500 MG PREMIX INJ 100 ML IV SCH (20:51)
--- NOTE | 2017-01-27 20:52 | HHI.PR ---
Subjective Subjective Notes Patient has had two episodes A-fib with RVR; controlled with dig and metoprolol. Chest tube output serous Had a fever earlier this AM; cultures sent Objective Vitals/I&O Vital Signs Date Time Temp Pulse Resp B/P Pulse Ox O2 Delivery O2 Flow Rate FiO2 01/27/17 19:44 100 35 01/27/17 18:00 73 01/27/17 16:00 99.9 16 99/58 01/27/17 12:00 Mechanical Ventilator 01/27/17 07:00 6.00 Labs Laboratory Tests Test 01/27/17 04:00 White Blood Count 27.9 Red Blood Count 3.58 Hemoglobin 11.6 Hematocrit 34.8 Mean Corpuscular Volume 97.3 Mean Corpuscular Hemoglobin 32.4 Mean Corpuscular Hemoglobin 33.3 Concent Red Cell Distribution Width 13.2 Platelet Count 192 Mean Platelet Volume 9.5 Neutrophils (%) (Auto) 87.1 Lymphocytes (%) (Auto) 8.2 Monocytes (%) (Auto) 3.3 Eosinophils (%) (Auto) 1.0 Basophils (%) (Auto) 0.4 Neutrophils # (Auto) 24.3 Lymphocytes # (Auto) 2.3 Monocytes # (Auto) 0.9 Eosinophils # (Auto) 0.3 Basophils # (Auto) 0.1 CBC Comment AUTO DIFF Differential Total Cells 100 Counted Neutrophils % (Manual) 71 Band Neutrophils % 14 Lymphocytes % 8 Monocytes % 6 Eosinophils % 1 Neutrophils # (Manual) 23.7 Differential Comment FINAL DIFF MANUAL Toxic Granulation 1+ Platelet Estimate NORMAL Platelet Morphology Comment NORMAL Sodium Level 138 Potassium Level 3.7 Chloride Level 101 Carbon Dioxide Level 30.4 Anion Gap 7 Blood Urea Nitrogen 7 Creatinine 0.56 Estimat Glomerular Filtration 147 Rate Random Glucose 253 Calcium Level 7.3 Protein Corrected Calcium 8.5 Phosphorus Level 1.7 Magnesium Level 2.0 Total Bilirubin 0.3 Aspartate Amino Transf 32 (AST/SGOT) Alanine Aminotransferase 44 (ALT/SGPT) Alkaline Phosphatase 73 Total Protein 5.0 Albumin 1.0 Date/Time Procedure Status Source Growth 01/27/17 17:46 Aerobic Blood Culture Received Blood Peripheral Pending 01/27/17 17:46 Anaerobic Blood Culture Received Blood Peripheral Pending 01/27/17 08:00 Urine Culture Received Urine Catheterized Urine Pending 01/27/17 08:00 Gram Stain Received Sputum Endotracheal Pending 01/27/17 08:00 Sputum Culture Received Sputum Endotracheal Pending 01/27/17 04:55 Gram Stain - Final Resulted Wound Abdomen 01/27/17 04:55 Wound Culture Resulted Wound Abdomen Pending Abdomen: Non-distended, Non-tender Narrative Exam Leandro intact; wound without erythema or drainage A/P Assessment and Plan Assessment and Plan 66 year old male POD #10 laparoscopic gastrectomy and cholecystectomy with Botox injection; POD #3 bilateral thoracostomy tube placement; open subtotal gastrectomy; jejunostomy tube placement -NGT to LIWS -IVF -Start trickle feeds per J-tube -TPN -Continue ANDREW management -Await pathology -Appreciate Account Services Analyst consult Jose Marquez MD Jan 27, 2017 20:52
[2017-01-27] MEDS: MULTIVITAMIN INJ 10 ML, FOLIC ACID INJ 1 MG, INSULIN HUMAN REGULAR INJ 20 UNITS in AMIN... IV-CENTRAL SCH (20:57)
[2017-01-28] VITALS (15 sets, daily range): BP systolic 105–121; BP diastolic 53–59; PULSE 66–98; RESP 15–18; TEMP 99.3–100.8; O2SAT 94–99
[2017-01-28] MEDS: fentaNYL DRIP 250 ML IV SCH ×3 (03:08→22:50)
[2017-01-28] MEDS: PIPERACIL-TAZO 4.5 GM PREMIX 100 ML IV SCH ×4 (03:09→20:37)
[2017-01-28] MEDS: PROPOFOL 1000 MG/100 ML INJ 100 ML IV SCH ×7 (03:12→22:54)
[2017-01-28] MEDS: INSULIN ASPART SUPPLEMENTAL SCALE SQ SCH ×6 (04:00→20:00)
[2017-01-28 04:42] LABS: BASOPHIL % 0.2 % (0.0-2.0); EOSINOPHIL # 0.3 TH/MM3 (0-0.4); EOSINOPHIL % 1.7 % (0.0-4.0); HEMATOCRIT 30.2 % (39.0-51.0); HEMO FLAGS DIFF FINAL; LYMPH % 7.2 % (9.0-44.0); LYMPHOCYTE # 1.3 TH/MM3 (1.0-4.8); MEAN CELL VOLUME 96.8 FL (80.0-100.0); MEAN CORPUSCULAR HEMOGLOBIN 32.1 PG (27.0-34.0); MEAN CORPUSCULAR HGB CONC 33.2 % (32.0-36.0); MONO % 5.8 % (0.0-8.0); NEUT % 85.1 % (16.0-70.0); PLATELET COUNT 232 TH/MM3 (150-450); RED BLOOD COUNT 3.12 MIL/MM3 (4.50-5.90); RED CELL DISTRIBUTION WIDTH 13.3 % (11.6-17.2); WHITE BLOOD COUNT 17.6 TH/MM3 (4.0-11.0)
[2017-01-28 04:54] LABS: ANION GAP 6 MEQ/L (5-15); AST (GOT) 17 U/L (15-37); BICARBONATE 31.8 MEQ/L (21.0-32.0); BLOOD UREA NITROGEN 7 MG/DL (7-18); CHLORIDE 104 MEQ/L (98-107); GLOMERULAR FILTRATION RATE 147 ML/MIN (>89); MAGNESIUM 2.2 MG/DL (1.5-2.5); POTASSIUM 3.8 MEQ/L (3.5-5.1); SODIUM (NA) 142 MEQ/L (136-145)
[2017-01-28 05:10] LABS: ALKALINE PHOSPHATASE 69 U/L (45-117); ALT (GPT) 29 U/L (12-78); DIGOXIN 0.9 NG/ML (0.8-2.0); TOTAL BILIRUBIN ADULT 0.2 MG/DL (0.2-1.0)
--- NOTE | 2017-01-28 07:57 | HHI.CCPN ---
Subjective Remarks/Hospital Course 66 y/o man has developed respiratory failure following a laparoscopic partial gastrectomy performed 01/17. He was brought to the [facility] where I met him on his arrival. Intubated for hypoxemic failure and lines placed. After 2 liters NS patient making > 40 ml/hr urine. Arrived in atrial fibrillation with rate 160s, converted after fluid, analgesia, and lopressor 5 mg X 1.Loaded with antibiotics. Family is aware. 01/25: Completion gastric resection and resuscitation. Urine output marginal but perfusion good. Tapering vasopressors. 01/26: Off all vasopressors. Tmax 100.4. Currently 100.2. Tolerating TPN. White cell count elevated 27,000. Arousable and follows commands on the ventilator. Subjective 01/27: Tmax 101.5. Pancultured including blood 2 from peripheral access and sputum. Added vancomycin. Arousable doesn't follow commands. Cultures sent from around surgical site. 01/28: Remains sedated, orally intubated on mechanical ventilation. Objective Vital Signs Date Time Temp Pulse Resp B/P Pulse Ox O2 Delivery O2 Flow Rate FiO2 01/28/17 07:30 35 01/28/17 06:00 88 01/28/17 04:20 99 01/28/17 04:00 99.9 15 107/55 01/27/17 12:00 Mechanical Ventilator 01/27/17 07:00 6.00 Intake and Output 01/27/17 01/27/17 01/28/17 08:00 16:00 00:00 Intake Total 1693 ml 2035 ml 1512 ml Output Total 630 ml 1148 ml 823 ml Balance 1063 ml 887 ml 689 ml Result Diagram: 01/28/17 0415 01/28/17 0415 Imaging Last Impressions Chest X-Ray 01/27/17 0600 Signed Impressions: Service Date/Time: Friday, January 27, 2017 04:22 - CONCLUSION: 1. Support apparatus in satisfactory position. Mild basilar airspace disease. No pneumothorax. Trace pleural fluid remains on the left. Jordan Lozano MD Chest Ultrasound 01/24/17 0000 Signed Impressions: Service Date/Time: Tuesday, January 24, 2017 11:13 - CONCLUSION: 1. Large left pleural effusion. Jayson Das MD Chest CT 01/23/17 0000 Signed Impressions: Service Date/Time: Monday, January 23, 2017 18:54 - CONCLUSION: 1. Moderate-sized bilateral pleural effusions. Right pleural effusion has several small areas of loculation as above. 2. Bilateral lower lobe consolidation. 3. Somewhat mass like fullness in the right infrahilar region. A contrast- enhanced CT of the chest is recommended, preferably after resolution of pleural effusions and bibasilar consolidation. Gonzales Pierre MD Upper GI/Barium Swallow X-Ray 01/22/17 0000 Signed Impressions: Service Date/Time: Sunday, January 22, 2017 12:29 - CONCLUSION: 1. Findings suspicious for a small leak at the gastroesophageal junction with contrast pooling into an air fluid collection adjacent to the GE junction and distal esophagus. There was an end to side anastomosis performed so it is possible, but felt unlikely, that the collection represents a portion of the proximal stomach. 2. Findings were discussed with Dr. Ritchie. Gonzales Ramsay MD Abdomen CT 01/22/17 0000 Signed Impressions: Service Date/Time: Sunday, January 22, 2017 17:12 - CONCLUSION: 1. There is an abnormal air and fluid collection located to the right of the GE junction adjacent to the proximal stomach. It extends into the posterior mediastinum. The current appearance and findings on fluoroscopy examination earlier today are indicative of a leak at the anastomosis. The current surgical drain is not directly adjacent to the collection and based on the location I do not think that we could place a drain in an appropriate location percutaneously. 2. Small bilateral pleural effusions with associated atelectasis and/or consolidation in both lower lobes. Gonzales Ramsay MD Objective Remarks Gen: 66-year-old male, critically ill currently orotracheally intubated with nasogastric tube right nares Head: NL. Atraumatic. Neck: Supple, airway widely patent. Lungs: Decreased breath sounds both bases, clear otherwise. Bilateral chest tubes in place Heart: NL S1S2, no murmur appreciated Abdomen: Mildly distended, soft. Post-surgical. Isidro drain on left/right. J- tube on left. Extremities: Warm, dry. We'll perfused Neuro: Sedated. Moves 4 limbs spontaneously. YESENIA. A/P Problem List: (1) Acute hypoxemic respiratory failure ICD Code: J96.01 Status: Acute (2) Primary adenocarcinoma of distal third of esophagus ICD Code: C15.5 Status: Acute Assessment and Plan Neuro/Psych: Chronic Benzodiazepine use Chronic muscle relaxant use Currently on propofol at 40 mics grams per kilogram minutes/fentanyl drip at 250 mics grams an hour for sedation/analgesia while intubated RA SS -2 Daily sedation vacation Patient is on alprazolam 0.25 mg twice a day and diazepam 5 mill grams twice a day when necessary for anxiety at home. Patient is on Flexeril as needed muscle relaxant home. CV: A. fib with RVR currently normal sinus rhythm History of hypertension History of dyslipidemia Holding home medications of amlodipine 5 mg twice a day and losartan 50 mg twice a day in light of borderline blood pressures On digoxin daily IV. Lopressor as needed for A. fib with RVR. Currently on TPN at 83 cc an hour. Not requiring vasopressors and/or anti-hypertensives at the current time Resp: Acute hypercapnic respiratory failure Bilateral chest of secondary pleural effusions [facility] 14//06/15/34 Ventilator bundle Scheduled due nebs every 6 hours with albuterol nebulizers every 2 hours. Dyspnea Spontaneous breathing trials as clinically indicated Follow-up chest x-ray in a.m. reveals no pneumothorax. Stable left lower lobe infiltrates. Bilateral chest tubes remain in place. GI: 01/19 -cholecystectomy, proximal gastrectomy with GE junction anastomosis and Botox injection by Dr. Ritchie 01/24 - bilateral chest tubes/open subtotal gastrectomy and jejunostomy placement Gastroesophageal reflux disease Holding lansoprazole 30 mg by mouth daily. Currently on pantoprazole 40 mg IV daily Currently on TPN at 83 cc an hour. Discontinue lipids while on Diprivan Isidro tubes left/right / serosanguineous. J-tube 165. No bowel movement 4 days : Soto catheter for accurate I's and O's in a critically ill patient Endo: Sliding-scale insulin with Novulog every 4 hours/medium. Add Levemir 10 twice a day. 20 units insulin in TPN. Renal: Creatinine currently within normal limits. Accurate I's and O's Follow BMP in a.m. Heme: Leukocytosis Normocytic anemia Monitor CBC daily. Follow trends ID: Currently on Zosyn/Levaquin daily added vancomycin 01/27 Blood cultures 2 one for 01/27). Wound culture pending FEN: Replace electrolytes as clinically indicated MSK: Range of motion Access - Right subclavian CVL day #4/right upper extremity PICC. Discontinue right radial arterial line 01/27 Prophylaxis - GI - pantoprazole - DVT - SCD/pharmacological prophylaxis when okay with surgery Remains critically ill on mechanical ventilation. Time spent on critical care excluding procedures 30 minutes Luc Pate MD Jan 28, 2017 07:57
[2017-01-28] MEDS: INSULIN DETEMIR 100 UNITS/ML VIAL SQ SCH ×2 (09:00→20:38)
[2017-01-28] MEDS: DIGOXIN 0.5 MG/2 ML VIAL IV PUSH SCH (09:00)
[2017-01-28] MEDS: SODIUM CHLORIDE 0.9% FLUSH 10 ML FLUSH IV FLUSH SCH ×3 (09:00→21:00)
[2017-01-28] MEDS: CHLORHEXIDINE 0.12% (ORAL KIT) 15 ML CUP MT SCH ×2 (09:00→20:41)
[2017-01-28] MEDS: VANCOMYCIN 1,500 MG/NS 500 ML IV SCH ×4 (09:45→21:10)
--- NOTE | 2017-01-28 15:22 | HHI.PR ---
Subjective Subjective Notes DAILY PROGRESS NOTE FOR SURGICAL ATTENDING, DR. JORDAN COLMENARES at bedside Patient on ventilator Objective Vitals/I&O Vital Signs Date Time Temp Pulse Resp B/P (MAP) Pulse Ox O2 Delivery O2 Flow Rate FiO2 01/28/17 14:00 70 01/28/17 13:31 35 01/28/17 10:15 97 01/28/17 04:00 99.9 15 107/55 (72) 01/27/17 12:00 Mechanical Ventilator 01/27/17 07:00 6.00 Labs Laboratory Tests Test 01/28/17 04:15 White Blood Count 17.6 Red Blood Count 3.12 Hemoglobin 10.0 Hematocrit 30.2 Mean Corpuscular Volume 96.8 Mean Corpuscular Hemoglobin 32.1 Mean Corpuscular Hemoglobin Concent 33.2 Red Cell Distribution Width 13.3 Platelet Count 232 Mean Platelet Volume 8.6 Neutrophils (%) (Auto) 85.1 Lymphocytes (%) (Auto) 7.2 Monocytes (%) (Auto) 5.8 Eosinophils (%) (Auto) 1.7 Basophils (%) (Auto) 0.2 Neutrophils # (Auto) 15.0 Lymphocytes # (Auto) 1.3 Monocytes # (Auto) 1.0 Eosinophils # (Auto) 0.3 Basophils # (Auto) 0.0 CBC Comment DIFF FINAL Differential Comment Blood Urea Nitrogen 7 Creatinine 0.56 Random Glucose 247 Total Protein 5.0 Albumin 0.9 Calcium Level 7.6 Phosphorus Level 2.3 Magnesium Level 2.2 Alkaline Phosphatase 69 Aspartate Amino Transf (AST/SGOT) 17 Alanine Aminotransferase (ALT/SGPT) 29 Total Bilirubin 0.2 Sodium Level 142 Potassium Level 3.8 Chloride Level 104 Carbon Dioxide Level 31.8 Anion Gap 6 Estimat Glomerular Filtration Rate 147 Digoxin Level 0.9 Date/Time Source Procedure Growth Status 01/27/17 23:12 Blood Peripheral Aerobic Blood Culture Pending Received 01/27/17 23:12 Blood Peripheral Anaerobic Blood Culture Pending Received 01/27/17 08:00 Sputum Endotracheal Gram Stain - Final Resulted 01/27/17 08:00 Sputum Endotracheal Sputum Culture - Preliminary MODERATE GROWTH NORMAL RESPIRATORY FL... Resulted 01/27/17 08:00 Urine Catheterized Urine Urine Culture - Preliminary NO GROWTH IN 24 HOURS. Resulted 01/27/17 04:55 Wound Abdomen Gram Stain - Final Resulted 01/27/17 04:55 Wound Abdomen Wound Culture Pending Resulted Radiology Last Impressions Chest X-Ray 01/27/17 0600 Signed Impressions: Service Date/Time: Friday, January 27, 2017 04:22 - CONCLUSION: 1. Support apparatus in satisfactory position. Mild basilar airspace disease. No pneumothorax. Trace pleural fluid remains on the left. Jordan Lozano MD Lower Extremity Ultrasound 01/27/17 0000 Signed Impressions: Service Date/Time: Friday, January 27, 2017 12:49 - CONCLUSION: No DVT in either lower extremity. Elijah Funes MD Chest Ultrasound 01/24/17 0000 Signed Impressions: Service Date/Time: Tuesday, January 24, 2017 11:13 - CONCLUSION: 1. Large left pleural effusion. Jayson Das MD Chest CT 01/23/17 0000 Signed Impressions: Service Date/Time: Monday, January 23, 2017 18:54 - CONCLUSION: 1. Moderate-sized bilateral pleural effusions. Right pleural effusion has several small areas of loculation as above. 2. Bilateral lower lobe consolidation. 3. Somewhat mass like fullness in the right infrahilar region. A contrast- enhanced CT of the chest is recommended, preferably after resolution of pleural effusions and bibasilar consolidation. Gonzales Pierre MD Upper GI/Barium Swallow X-Ray 01/22/17 0000 Signed Impressions: Service Date/Time: Sunday, January 22, 2017 12:29 - CONCLUSION: 1. Findings suspicious for a small leak at the gastroesophageal junction with contrast pooling into an air fluid collection adjacent to the GE junction and distal esophagus. There was an end to side anastomosis performed so it is possible, but felt unlikely, that the collection represents a portion of the proximal stomach. 2. Findings were discussed with Dr. Ritchie. Gonzales Ramsay MD Abdomen CT 01/22/17 0000 Signed Impressions: Service Date/Time: Sunday, January 22, 2017 17:12 - CONCLUSION: 1. There is an abnormal air and fluid collection located to the right of the GE junction adjacent to the proximal stomach. It extends into the posterior mediastinum. The current appearance and findings on fluoroscopy examination earlier today are indicative of a leak at the anastomosis. The current surgical drain is not directly adjacent to the collection and based on the location I do not think that we could place a drain in an appropriate location percutaneously. 2. Small bilateral pleural effusions with associated atelectasis and/or consolidation in both lower lobes. Gonzales Ramsay MD Cardiovascular: Regular Lungs: Other (bilateral chest tube drainage) Abdomen: Other (tolerate tube feeds 10 cc an hour) Extremities: SCD's on A/P Problem List: (1) Primary adenocarcinoma of distal third of esophagus ICD Codes: C15.5 - Malignant neoplasm of lower third of esophagus Status: Acute (2) Atrial fibrillation with RVR ICD Codes: I48.91 - Unspecified atrial fibrillation Status: Acute (3) Acute hypoxemic respiratory failure ICD Codes: J96.01 - Acute respiratory failure with hypoxia Status: Acute (4) Gastric adenocarcinoma ICD Codes: C16.9 - Malignant neoplasm of stomach, unspecified Status: Acute Assessment and Plan 66 year old male POD #10 laparoscopic gastrectomy and cholecystectomy with Botox injection; POD #3 bilateral thoracostomy tube placement; open subtotal gastrectomy; jejunostomy tube placement -NGT to LIWS -IVF -Start increasing feeds per J-tube -TPN weaning -Continue ANDREW management -Appreciate Access Liaison consult Spoke with at bedside Jordan Colmenares MD Jan 28, 2017 15:22
[2017-01-28] MEDS: ENOXAPARIN SODIUM 30 MG/0.3 ML SYRINGE SQ SCH (16:06)
--- NOTE | 2017-01-28 16:10 | EKG ---
Date Performed: 01/27/2017 Time Performed: 10:19:24 PTAGE: 66 years EKG: Atrial fibrillation with rapid ventricular response Abnormal ECG Compared to PREVIOUS TRACING , rhythm has changed from Sinus rhythm to atrial fibrillation with a rapid ventricular response. PREVIOUS TRACIN01/17/2017 08.49 DOCTOR: Al Gibbons Interpretating Date/Time 01/28/2017 16:09:26
[2017-01-28] MEDS: PANTOPRAZOLE SODIUM 40 MG VIAL IV SCH (17:03)
[2017-01-28] MEDS: DEXTROSE 10% INJ 1,000 ML IV SCH (17:03)
[2017-01-28] MEDS: RESP: ALBUTEROL 2.5 MG/IPRATROPIUM 0.5 MG NEB (PRN) NEB (20:06)
[2017-01-28] MEDS: MULTIVITAMIN INJ 10 ML, FOLIC ACID INJ 1 MG, INSULIN HUMAN REGULAR INJ 20 UNITS in AMIN... IV-CENTRAL SCH (20:37)
[2017-01-28] MEDS: LEVOFLOXACIN 500 MG PREMIX INJ 100 ML IV SCH (20:38)
[2017-01-28] MEDS: ACETAMINOPHEN 1000 MG/100 ML VIAL IV PRN (22:25)
[2017-01-28] MEDS: HYDROmorphone HCL PF 1 MG/ML VIAL IV PRN (22:45)
[2017-01-29] VITALS (18 sets, daily range): BP systolic 112–154; BP diastolic 53–69; PULSE 72–112; RESP 15–21; TEMP 99.9–101.7; O2SAT 93–99
[2017-01-29] MEDS: INSULIN ASPART SUPPLEMENTAL SCALE SQ SCH ×6 (00:20→20:26)
[2017-01-29] MEDS: PROPOFOL 1000 MG/100 ML INJ 100 ML IV SCH ×6 (01:34→22:28)
[2017-01-29] MEDS: PIPERACIL-TAZO 4.5 GM PREMIX 100 ML IV SCH ×4 (05:00→21:13)
[2017-01-29] MEDS: RESP: ALBUTEROL 2.5 MG/IPRATROPIUM 0.5 MG NEB (PRN) NEB ×2 (05:04→09:12)
[2017-01-29] MEDS: ACETAMINOPHEN 1000 MG/100 ML VIAL IV PRN ×3 (05:35→19:39)
[2017-01-29] MEDS: HYDROmorphone HCL PF 1 MG/ML VIAL IV PRN (05:55)
[2017-01-29] MEDS: DIGOXIN 0.5 MG/2 ML VIAL IV PUSH SCH (08:53)
[2017-01-29] MEDS: INSULIN DETEMIR 100 UNITS/ML VIAL SQ SCH ×2 (08:54→20:25)
[2017-01-29] MEDS: CHLORHEXIDINE 0.12% (ORAL KIT) 15 ML CUP MT SCH ×2 (08:55→20:26)
[2017-01-29] MEDS: SODIUM CHLORIDE 0.9% FLUSH 10 ML FLUSH IV FLUSH SCH ×3 (08:55→21:00)
[2017-01-29] MEDS ORDERED: PHARMACY ORDERED LAB ONE (09:45)
--- NOTE | 2017-01-29 10:06 | HHI.CCPN ---
Subjective Remarks/Hospital Course 66 y/o man has developed respiratory failure following a laparoscopic partial gastrectomy performed 01/17. He was brought to the [facility] where I met him on his arrival. Intubated for hypoxemic failure and lines placed. After 2 liters NS patient making > 40 ml/hr urine. Arrived in atrial fibrillation with rate 160s, converted after fluid, analgesia, and lopressor 5 mg X 1.Loaded with antibiotics. Family is aware. 01/25: Completion gastric resection and resuscitation. Urine output marginal but perfusion good. Tapering vasopressors. 01/26: Off all vasopressors. Tmax 100.4. Currently 100.2. Tolerating TPN. White cell count elevated 27,000. Arousable and follows commands on the ventilator. Subjective 01/27: Tmax 101.5. Pancultured including blood 2 from peripheral access and sputum. Added vancomycin. Arousable doesn't follow commands. Cultures sent from around surgical site. 01/28: Remains sedated, orally intubated on mechanical ventilation. 01/29: Remains sedated, orally intubated on mechanical ventilation. Remains febrile. Objective Vital Signs Date Time Temp Pulse Resp B/P (MAP) Pulse Ox O2 Delivery O2 Flow Rate FiO2 01/29/17 09:13 94 40 01/29/17 06:00 112 01/29/17 04:00 101.1 21 122/57 (78) 01/27/17 12:00 Mechanical Ventilator 01/27/17 07:00 6.00 Intake and Output 01/29/17 01/29/17 01/30/17 08:00 16:00 00:00 Intake Total 2660 ml Output Total 1746 ml Balance 914 ml Result Diagram: 01/28/17 0415 01/28/17 0415 Other Results Microbiology Date/Time Source Procedure Growth Status 01/27/17 08:00 Urine Catheterized Urine Urine Culture - Final NO GROWTH IN 48 HOURS. Complete Imaging Last Impressions Chest X-Ray 01/27/17 0600 Signed Impressions: Service Date/Time: Friday, January 27, 2017 04:22 - CONCLUSION: 1. Support apparatus in satisfactory position. Mild basilar airspace disease. No pneumothorax. Trace pleural fluid remains on the left. Jordan Lozano MD Chest Ultrasound 01/24/17 0000 Signed Impressions: Service Date/Time: Tuesday, January 24, 2017 11:13 - CONCLUSION: 1. Large left pleural effusion. Jayson Das MD Chest CT 01/23/17 0000 Signed Impressions: Service Date/Time: Monday, January 23, 2017 18:54 - CONCLUSION: 1. Moderate-sized bilateral pleural effusions. Right pleural effusion has several small areas of loculation as above. 2. Bilateral lower lobe consolidation. 3. Somewhat mass like fullness in the right infrahilar region. A contrast- enhanced CT of the chest is recommended, preferably after resolution of pleural effusions and bibasilar consolidation. Gonzales Pierre MD Upper GI/Barium Swallow X-Ray 01/22/17 0000 Signed Impressions: Service Date/Time: Sunday, January 22, 2017 12:29 - CONCLUSION: 1. Findings suspicious for a small leak at the gastroesophageal junction with contrast pooling into an air fluid collection adjacent to the GE junction and distal esophagus. There was an end to side anastomosis performed so it is possible, but felt unlikely, that the collection represents a portion of the proximal stomach. 2. Findings were discussed with Dr. Ritchie. Gonzales Ramsay MD Abdomen CT 01/22/17 0000 Signed Impressions: Service Date/Time: Sunday, January 22, 2017 17:12 - CONCLUSION: 1. There is an abnormal air and fluid collection located to the right of the GE junction adjacent to the proximal stomach. It extends into the posterior mediastinum. The current appearance and findings on fluoroscopy examination earlier today are indicative of a leak at the anastomosis. The current surgical drain is not directly adjacent to the collection and based on the location I do not think that we could place a drain in an appropriate location percutaneously. 2. Small bilateral pleural effusions with associated atelectasis and/or consolidation in both lower lobes. Gonzales Ramsay MD Objective Remarks Gen: 66-year-old male, critically ill currently orotracheally intubated with nasogastric tube right nares Head: NL. Atraumatic. Neck: Supple, airway widely patent. Lungs: Decreased breath sounds both bases, clear otherwise. Bilateral chest tubes in place Heart: NL S1S2, no murmur appreciated Abdomen: Mildly distended, soft. Post-surgical. Isidro drain on left/right. J- tube on left. Extremities: Warm, dry. We'll perfused Neuro: Sedated. Moves 4 limbs spontaneously. YESENIA. A/P Problem List: (1) Acute hypoxemic respiratory failure ICD Code: J96.01 - Acute respiratory failure with hypoxia Status: Acute (2) Primary adenocarcinoma of distal third of esophagus ICD Code: C15.5 - Malignant neoplasm of lower third of esophagus Status: Acute Assessment and Plan Neuro/Psych: Chronic Benzodiazepine use Chronic muscle relaxant use Currently on propofol at 40 mics grams per kilogram minutes/fentanyl drip at 250 mics grams an hour for sedation/analgesia while intubated RA SS -2 Daily sedation vacation Patient is on alprazolam 0.25 mg twice a day and diazepam 5 mill grams twice a day when necessary for anxiety at home. Patient is on Flexeril as needed muscle relaxant home. CV: A. fib with RVR currently normal sinus rhythm History of hypertension History of dyslipidemia Holding home medications of amlodipine 5 mg twice a day and losartan 50 mg twice a day in light of borderline blood pressures On digoxin daily IV. Lopressor as needed for A. fib with RVR. Currently on TPN at 83 cc an hour. Not requiring vasopressors and/or anti-hypertensives at the current time Resp: Acute hypercapnic respiratory failure Bilateral chest of secondary pleural effusions [facility] 14/550/06/15/34 Ventilator bundle Scheduled due nebs every 6 hours with albuterol nebulizers every 2 hours. Dyspnea Spontaneous breathing trials as clinically indicated Follow-up chest x-ray in a.m. reveals no pneumothorax. Stable left lower lobe infiltrates. Bilateral chest tubes remain in place. GI: 01/19 -cholecystectomy, proximal gastrectomy with GE junction anastomosis and Botox injection by Dr. Ritchie 01/24 - bilateral chest tubes/open subtotal gastrectomy and jejunostomy placement Gastroesophageal reflux disease Holding lansoprazole 30 mg by mouth daily. Currently on pantoprazole 40 mg IV daily Currently on TPN at 83 cc an hour. Discontinue lipids while on Diprivan Isidro tubes left/right. J-tube : Soto catheter for accurate I's and O's in a critically ill patient Endo: Sliding-scale insulin with Novulog every 4 hours/medium. Add Levemir 10 twice a day. 20 units insulin in TPN. Renal: Creatinine currently within normal limits. Accurate I's and O's Monitor and replete electrolytes, follow BUN creatinine. Heme: Leukocytosis Normocytic anemia Monitor CBC daily. Follow trends ID: Currently on Zosyn/Levaquin daily added vancomycin 01/27 Blood cultures 2 one for 01/27). Wound culture pending FEN: Replace electrolytes as clinically indicated MSK: Range of motion Access - Right subclavian CVL day #5/right upper extremity PICC. Discontinue right radial arterial line 01/27 Prophylaxis - GI - pantoprazole - DVT - SCD/pharmacological prophylaxis when okay with surgery Remains critically ill on mechanical ventilation. Time spent on critical care excluding procedures 30 minutes Luc Pate MD Jan 29, 2017 10:06
[2017-01-29] MEDS: VANCOMYCIN 1,500 MG/NS 500 ML IV SCH ×2 (10:11)
[2017-01-29 10:45] LABS: AUTOMATED NEUTROPHIL # 13.3 TH/MM3 (1.8-7.7); BASOPHIL % 0.1 % (0.0-2.0); EOSINOPHIL # 0.2 TH/MM3 (0-0.4); HEMATOCRIT 30.5 % (39.0-51.0); HEMO FLAGS DIFF FINAL; LYMPH % 7.1 % (9.0-44.0); LYMPHOCYTE # 1.1 TH/MM3 (1.0-4.8); MEAN CORPUSCULAR HEMOGLOBIN 31.7 PG (27.0-34.0); MEAN CORPUSCULAR HGB CONC 32.7 % (32.0-36.0); MONO % 7.4 % (0.0-8.0); NEUT % 84.4 % (16.0-70.0); PLATELET COUNT 320 TH/MM3 (150-450); RED BLOOD COUNT 3.14 MIL/MM3 (4.50-5.90); RED CELL DISTRIBUTION WIDTH 13.4 % (11.6-17.2); WHITE BLOOD COUNT 15.7 TH/MM3 (4.0-11.0)
[2017-01-29 10:53] LABS: ANION GAP 3 MEQ/L (5-15); AST (GOT) 18 U/L (15-37); BICARBONATE 32.1 MEQ/L (21.0-32.0); BLOOD UREA NITROGEN 6 MG/DL (7-18); CHLORIDE 107 MEQ/L (98-107); GLOMERULAR FILTRATION RATE 133 ML/MIN (>89); MAGNESIUM 2.2 MG/DL (1.5-2.5); POTASSIUM 4.2 MEQ/L (3.5-5.1); SODIUM (NA) 142 MEQ/L (136-145)
[2017-01-29 10:57] LABS: ALKALINE PHOSPHATASE 92 U/L (45-117); ALT (GPT) 23 U/L (12-78); TOTAL BILIRUBIN ADULT 0.3 MG/DL (0.2-1.0)
[2017-01-29] MEDS: fentaNYL DRIP 250 ML IV SCH ×3 (11:07→20:28)
[2017-01-29] MEDS: FLUCONAZOLE 400 MG PREMIX BAG 200 ML IV SCH (11:07)
--- NOTE | 2017-01-29 16:07 | HHI.PR ---
Subjective Subjective Notes Intubated/Sedated Daughter at bedside Objective Vitals/I&O Vital Signs Date Time Temp Pulse Resp B/P (MAP) Pulse Ox O2 Delivery O2 Flow Rate FiO2 01/29/17 14:00 72 01/29/17 13:41 94 40 01/29/17 12:00 101.7 20 112/54 (73) 01/27/17 12:00 Mechanical Ventilator 01/27/17 07:00 6.00 Labs Laboratory Tests Test 01/29/17 09:05 01/29/17 09:55 Vancomycin Level Trough 9.6 White Blood Count 15.7 Red Blood Count 3.14 Hemoglobin 10.0 Hematocrit 30.5 Mean Corpuscular Volume 97.0 Mean Corpuscular Hemoglobin 31.7 Mean Corpuscular Hemoglobin Concent 32.7 Red Cell Distribution Width 13.4 Platelet Count 320 Mean Platelet Volume 8.3 Neutrophils (%) (Auto) 84.4 Lymphocytes (%) (Auto) 7.1 Monocytes (%) (Auto) 7.4 Eosinophils (%) (Auto) 1.0 Basophils (%) (Auto) 0.1 Neutrophils # (Auto) 13.3 Lymphocytes # (Auto) 1.1 Monocytes # (Auto) 1.2 Eosinophils # (Auto) 0.2 Basophils # (Auto) 0.0 CBC Comment DIFF FINAL Differential Comment Blood Urea Nitrogen 6 Creatinine 0.61 Random Glucose 257 Total Protein 5.6 Albumin 0.9 Calcium Level 7.7 Phosphorus Level 2.3 Magnesium Level 2.2 Alkaline Phosphatase 92 Aspartate Amino Transf (AST/SGOT) 18 Alanine Aminotransferase (ALT/SGPT) 23 Total Bilirubin 0.3 Sodium Level 142 Potassium Level 4.2 Chloride Level 107 Carbon Dioxide Level 32.1 Anion Gap 3 Estimat Glomerular Filtration Rate 133 Date/Time Source Procedure Growth Status 01/27/17 23:12 Blood Peripheral Aerobic Blood Culture - Preliminary NO GROWTH IN 1 DAY Resulted 01/27/17 23:12 Blood Peripheral Anaerobic Blood Culture - Preliminary NO GROWTH IN 1 DAY Resulted 01/27/17 08:00 Sputum Endotracheal Gram Stain - Final Complete 01/27/17 08:00 Sputum Endotracheal Sputum Culture - Final MODERATE GROWTH NORMAL RESPIRATORY DEMARCUS Complete 01/27/17 08:00 Urine Catheterized Urine Urine Culture - Final NO GROWTH IN 48 HOURS. Complete 01/27/17 04:55 Wound Abdomen Gram Stain - Final Complete 01/27/17 04:55 Wound Culture - Final Saida Albicans Complete Radiology Last Impressions Chest X-Ray 01/27/17 0600 Signed Impressions: Service Date/Time: Friday, January 27, 2017 04:22 - CONCLUSION: 1. Support apparatus in satisfactory position. Mild basilar airspace disease. No pneumothorax. Trace pleural fluid remains on the left. Jordan Lozano MD Lower Extremity Ultrasound 01/27/17 0000 Signed Impressions: Service Date/Time: Friday, January 27, 2017 12:49 - CONCLUSION: No DVT in either lower extremity. Elijah Funes MD Chest Ultrasound 01/24/17 0000 Signed Impressions: Service Date/Time: Tuesday, January 24, 2017 11:13 - CONCLUSION: 1. Large left pleural effusion. Jayson Das MD Chest CT 01/23/17 0000 Signed Impressions: Service Date/Time: Monday, January 23, 2017 18:54 - CONCLUSION: 1. Moderate-sized bilateral pleural effusions. Right pleural effusion has several small areas of loculation as above. 2. Bilateral lower lobe consolidation. 3. Somewhat mass like fullness in the right infrahilar region. A contrast- enhanced CT of the chest is recommended, preferably after resolution of pleural effusions and bibasilar consolidation. Gonzales Pierre MD Upper GI/Barium Swallow X-Ray 01/22/17 0000 Signed Impressions: Service Date/Time: Sunday, January 22, 2017 12:29 - CONCLUSION: 1. Findings suspicious for a small leak at the gastroesophageal junction with contrast pooling into an air fluid collection adjacent to the GE junction and distal esophagus. There was an end to side anastomosis performed so it is possible, but felt unlikely, that the collection represents a portion of the proximal stomach. 2. Findings were discussed with Dr. Ritchie. Gonzales Ramsay MD Abdomen CT 01/22/17 0000 Signed Impressions: Service Date/Time: Sunday, January 22, 2017 17:12 - CONCLUSION: 1. There is an abnormal air and fluid collection located to the right of the GE junction adjacent to the proximal stomach. It extends into the posterior mediastinum. The current appearance and findings on fluoroscopy examination earlier today are indicative of a leak at the anastomosis. The current surgical drain is not directly adjacent to the collection and based on the location I do not think that we could place a drain in an appropriate location percutaneously. 2. Small bilateral pleural effusions with associated atelectasis and/or consolidation in both lower lobes. Gonzales Ramsay MD Cardiovascular: Regular Lungs: Clear Abdomen: Other (midline incision with allie---dressing replaced; J tube without complications; ANDREW x2 with thick pus drainage), Post-op tenderness Extremities: Other (moderate generalized edema ) Narrative Exam Bilateral chest tubes to wall suction A/P Problem List: (1) Primary adenocarcinoma of distal third of esophagus ICD Codes: C15.5 - Malignant neoplasm of lower third of esophagus Status: Acute (2) Atrial fibrillation with RVR ICD Codes: I48.91 - Unspecified atrial fibrillation Status: Acute (3) Acute hypoxemic respiratory failure ICD Codes: J96.01 - Acute respiratory failure with hypoxia Status: Acute (4) Gastric adenocarcinoma ICD Codes: C16.9 - Malignant neoplasm of stomach, unspecified Status: Acute Assessment and Plan 66 year old male POD12 laparoscopic gastrectomy and cholecystectomy with Botox injection; POD5 bilateral thoracostomy tube placement; open subtotal gastrectomy ; jejunostomy tube placement -NGT to LIWS -IVF -Tolerating trickle feeds via J tube -Culture from ANDREW + for Saida --- Diflucan started -Fevers; WBC trending down -TPN -Continue ANDREW management -Await pathology -Appreciate Puffer Tender consult Attending Statement The exam, history, and the medical decision-making described in the above note were completed with the assistance of the mid-level provider. I reviewed and agree with the findings presented. I attest that I had a [id number] encounter with the patient on the same day, and personally performed and documented my assessment and findings in the medical record. Abdominal exam: soft, mildly distended ok to start TF and wean off TPN Es Solis Jan 29, 2017 16:07 Josh Ritchie MD Feb 07, 2017 14:27
[2017-01-29] MEDS: ENOXAPARIN SODIUM 30 MG/0.3 ML SYRINGE SQ SCH (16:09)
[2017-01-29] MEDS: DEXTROSE 10% INJ 1,000 ML IV SCH (17:22)
[2017-01-29] MEDS: PANTOPRAZOLE SODIUM 40 MG VIAL IV SCH (17:22)
--- NOTE | 2017-01-29 17:22 | MP ---
cc: BURAK ROCHA DATE OF SURGERY Tuesday, January 24, 2017 PREOPERATIVE DIAGNOSIS Gastric adenocarcinoma. There were positive margins after previous partial gastrectomy. POSTOPERATIVE DIAGNOSIS Gastric adenocarcinoma. There were positive margins after previous partial gastrectomy with small contained anastomotic leak. PROCEDURE 1. Bilateral thoracostomy tube placement. 2. Open subtotal gastrectomy with gastric conduit formation and gastroesophageal anastomosis. 3. Jejunostomy and feeding tube placement. ATTENDING SURGEON MD Erma OPERATOR SPECIALIST COMMUNICATIONS Staff. ANESTHESIA General. BLOOD LOSS 400 cc. FINDINGS Very minimal inflammation. No peritonitis. No abscess formation. Small contained anastomotic leak at the medial staple line closure site with drainage through the patient's surgical drain. Bilateral simple clear effusions. INDICATIONS FOR PROCEDURE The patient is a 66-year-old male who was recently diagnosed with a T1 N0 clinical proximal gastric adenocarcinoma. 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 I had a discussion with the patient and his about further management including a possibility of returning to the operating room for more aggressive resection versus nonoperative management occluding chemotherapy and radiation as well as possible outcomes with all the management. The patient and wished to proceed back to the operating room for subtotal gastrectomy and formal lymphadenectomy for possible aggressive adenocarcinoma. The risks, benefits and alternatives were discussed with us prior to the procedure. The patient also developed some possible bilateral effusions and respiratory distress prior to the procedure and bilateral thoracostomy tubes were indicated to assist the patient with his recovery and consent was obtained with these as well. PROCEDURE The patient was taken to the operating room, placed in a supine position, placed under general anesthesia. He already had in place endotracheal tube. The patient initially underwent bilateral thoracostomy tube placement. The patient had undergone ultrasonography and marking of the appropriate sites. I first placed the patient in left decubitus position and prepped and draped the right posterior chest. We were able to access the right chest cavity at that the marked area with a catheter pigtail content kit, a 10-Bengali size. We accessed the cavity with serous fluid and placed the drain without difficulty. We had clear to yellow-tinged serous effusion. This was placed to the atrium and the drain was sutured in place with sterile suture and sterile dressing was applied. We then placed the patient back into right decubitus position and performed left thoracentesis and drain placement in likewise fashion without complication. At this point in time the patient was then turned back to supine position and his abdomen prepped and draped in position. we then performed a midline incision from the below the xiphoid to just below the umbilicus with the #10 blade scalpel. We used Bovie electrocautery to dissect through subcutaneous tissue and opened the midline fascia. Placed a Bookwalter retractor to gain better exposure. We gently lysed a few mild inflammatory adhesions. There was minimal inflammation of the abdomen. We were able to see that there was a small contained leak just a few cm, right around the staple defect of the previous anastomosis where the Vicryl suture had been frayed through possibly due to tension or possibly some trauma from the NG tube. We then took this down with the scissors. Completely taking down the stomach from the distal esophagus. We then were able to dissect out the left gastric artery and divide this with a white load on the [place] laparoscopic stapler. We then were able to continue our dissection. We were able to use a green load on the [place] stapler to separate the stomach from the lesser curve at the incisura, all the way to the body of the stomach up to the fundus. We resected approximately 70% of the stomach including the fundus, the majority of the body and the lesser curve and left the long tubular stomach along the greater curve for reconstruction. This was passed off as a subtotal gastrectomy. We then able to take approximately 2 cm more of esophagus after we sufficiently mobilized this. We also used the harmonic scalpel to help mobilize this as well. We then were able to place a pursestring suture of 4-0 PDS suture. We placed a 21 EEA anvil into the distal esophagus without difficulty and tied down our pursestring. We placed the 21 EEA stapler through a gastrotomy in our conduit medially and placed the spike through the most proximal portion of our conduit. This came up through our esophagus with no tension and we fired the stapler without difficulty. We did have a small area of a thin edge of a donut at the esophageal margin with a good seal around the stomach margin. We re-tested this and there is a small amount of air bubbles coming from the posterior lateral aspect of our anastomosis. We were able to retract this conduit upward and placed a uroboe-yr-cxtut suture using 3-0 silk at this position and we had good opposition of this at the staple line. Second test proved no leak. At this point in time we turned our attention towards closure. We irrigated out the abdomen with sterile saline. We placed two 19-Bengali round Isidro drains, one lateral and one medial around the anastomosis. We were able to place an NG tube through the anastomosis down to the stomach and bridle this in position. We also placed a J-tube using the Chris technique. Approximately 40 cm past the ligament of Treitz, we found a loop of small bowel and placed a pursestring with 3-0 silk suture. We placed a J-tube through the abdominal wall and through our pursestring. We tied this down with the tube up to the abdominal wall in standard fashion with 3-0 silk sutures. The balloon was inflated with 2 cm and placed to gravity bag. We then turned our attention towards closure. We closed the midline with a #1 looped PDS suture. We closed the skin with skin allie and sterile dressing was applied. The drain was placed to bulb suction. The patient was brought back to the Intensive Care Unit in stable but guarded condition. No apparent complications. All counts were correct. I was present and scrubbed throughout the entire procedure. MD MAYA PiresG/SSB /3:46 PM /4:46 PM
[2017-01-29] MEDS: MULTIVITAMIN INJ 10 ML, FOLIC ACID INJ 1 MG, INSULIN HUMAN REGULAR INJ 20 UNITS in AMIN... IV-CENTRAL SCH (19:42)
[2017-01-29] MEDS: LEVOFLOXACIN 500 MG PREMIX INJ 100 ML IV SCH (21:14)
[2017-01-29] MEDS: VANCOMYCIN INJ 2,000 MG in SODIUM CHLORID 0.9% 500 ML INJ 500 ML IV SCH (21:15)
[2017-01-30] VITALS (20 sets, daily range): BP systolic 100–152; BP diastolic 53–70; PULSE 69–104; RESP 16–23; TEMP 100.2–101.1; O2SAT 91–100
[2017-01-30] MEDS: INSULIN ASPART SUPPLEMENTAL SCALE SQ SCH ×6 (00:30→20:00)
[2017-01-30] MEDS: HYDROmorphone HCL PF 1 MG/ML VIAL IV PRN ×2 (01:28→02:39)
[2017-01-30] MEDS: ACETAMINOPHEN 1000 MG/100 ML VIAL IV PRN ×4 (02:41→23:55)
[2017-01-30] MEDS: PROPOFOL 1000 MG/100 ML INJ 100 ML IV SCH ×7 (02:41→23:56)
[2017-01-30] MEDS: PIPERACIL-TAZO 4.5 GM PREMIX 100 ML IV SCH ×4 (04:09→20:49)
[2017-01-30 06:28] LABS: AUTOMATED NEUTROPHIL # 11.6 TH/MM3 (1.8-7.7); BASOPHIL % 0.2 % (0.0-2.0); EOSINOPHIL # 0.2 TH/MM3 (0-0.4); EOSINOPHIL % 1.6 % (0.0-4.0); HEMATOCRIT 28.4 % (39.0-51.0); HEMO FLAGS DIFF FINAL; LYMPH % 8.1 % (9.0-44.0); LYMPHOCYTE # 1.1 TH/MM3 (1.0-4.8); MEAN CELL VOLUME 97.1 FL (80.0-100.0); MEAN CORPUSCULAR HEMOGLOBIN 31.3 PG (27.0-34.0); MEAN CORPUSCULAR HGB CONC 32.2 % (32.0-36.0); MONO % 7.9 % (0.0-8.0); NEUT % 82.2 % (16.0-70.0); PLATELET COUNT 346 TH/MM3 (150-450); RED BLOOD COUNT 2.93 MIL/MM3 (4.50-5.90); RED CELL DISTRIBUTION WIDTH 13.8 % (11.6-17.2); WHITE BLOOD COUNT 14.1 TH/MM3 (4.0-11.0)
[2017-01-30 06:37] LABS: ALT (GPT) 18 U/L (12-78); ANION GAP 4 MEQ/L (5-15); AST (GOT) 20 U/L (15-37); BICARBONATE 32.2 MEQ/L (21.0-32.0); BLOOD UREA NITROGEN 7 MG/DL (7-18); CHLORIDE 105 MEQ/L (98-107); GLOMERULAR FILTRATION RATE 128 ML/MIN (>89); POTASSIUM 4.2 MEQ/L (3.5-5.1); SODIUM (NA) 141 MEQ/L (136-145)
[2017-01-30 06:40] LABS: ALKALINE PHOSPHATASE 91 U/L (45-117); TOTAL BILIRUBIN ADULT 0.3 MG/DL (0.2-1.0)
[2017-01-30] MEDS: CHLORHEXIDINE 0.12% (ORAL KIT) 15 ML CUP MT SCH ×2 (08:00→20:00)
[2017-01-30] MEDS: DIGOXIN 0.5 MG/2 ML VIAL IV PUSH SCH (08:48)
[2017-01-30] MEDS: SODIUM CHLORIDE 0.9% FLUSH 10 ML FLUSH IV FLUSH SCH ×3 (08:49→20:50)
[2017-01-30] MEDS: fentaNYL DRIP 250 ML IV SCH ×2 (09:09→15:00)
[2017-01-30] MEDS: LORazepam 2 MG/ML VIAL IV PRN (10:08)
[2017-01-30] MEDS: VANCOMYCIN INJ 2,000 MG in SODIUM CHLORID 0.9% 500 ML INJ 500 ML IV SCH ×2 (10:14→20:50)
[2017-01-30] MEDS: INSULIN DETEMIR 100 UNITS/ML VIAL SQ SCH ×2 (10:20→20:19)
--- NOTE | 2017-01-30 11:10 | HHI.CCPN ---
Subjective Remarks/Hospital Course 66 y/o man has developed respiratory failure following a laparoscopic partial gastrectomy performed 01/17. He was brought to the [facility] where I met him on his arrival. Intubated for hypoxemic failure and lines placed. After 2 liters NS patient making > 40 ml/hr urine. Arrived in atrial fibrillation with rate 160s, converted after fluid, analgesia, and lopressor 5 mg X 1.Loaded with antibiotics. Family is aware. 01/25: Completion gastric resection and resuscitation. Urine output marginal but perfusion good. Tapering vasopressors. 01/26: Off all vasopressors. Tmax 100.4. Currently 100.2. Tolerating TPN. White cell count elevated 27,000. Arousable and follows commands on the ventilator. Subjective 01/27: Tmax 101.5. Pancultured including blood 2 from peripheral access and sputum. Added vancomycin. Arousable doesn't follow commands. Cultures sent from around surgical site. 01/28: Remains sedated, orally intubated on mechanical ventilation. 01/29: Remains sedated, orally intubated on mechanical ventilation. Remains febrile. 01/30: Remains sedated, orally intubated on mechanical ventilation. Objective Vital Signs Date Time Temp Pulse Resp B/P (MAP) Pulse Ox O2 Delivery O2 Flow Rate FiO2 01/30/17 09:04 98 40 01/30/17 06:00 70 01/30/17 04:00 100.4 18 114/55 (74) 01/27/17 12:00 Mechanical Ventilator 01/27/17 07:00 6.00 Intake and Output 01/30/17 01/30/17 01/31/17 08:00 16:00 00:00 Intake Total 2046 ml Output Total 985 ml Balance 1061 ml Result Diagram: 01/30/17 0545 01/30/17 0545 Imaging Last Impressions Chest X-Ray 01/27/17 0600 Signed Impressions: Service Date/Time: Friday, January 27, 2017 04:22 - CONCLUSION: 1. Support apparatus in satisfactory position. Mild basilar airspace disease. No pneumothorax. Trace pleural fluid remains on the left. Jordan Lozano MD Chest Ultrasound 01/24/17 0000 Signed Impressions: Service Date/Time: Tuesday, January 24, 2017 11:13 - CONCLUSION: 1. Large left pleural effusion. Jayson Das MD Chest CT 01/23/17 0000 Signed Impressions: Service Date/Time: Monday, January 23, 2017 18:54 - CONCLUSION: 1. Moderate-sized bilateral pleural effusions. Right pleural effusion has several small areas of loculation as above. 2. Bilateral lower lobe consolidation. 3. Somewhat mass like fullness in the right infrahilar region. A contrast- enhanced CT of the chest is recommended, preferably after resolution of pleural effusions and bibasilar consolidation. Gonzales Pierre MD Upper GI/Barium Swallow X-Ray 01/22/17 0000 Signed Impressions: Service Date/Time: Sunday, January 22, 2017 12:29 - CONCLUSION: 1. Findings suspicious for a small leak at the gastroesophageal junction with contrast pooling into an air fluid collection adjacent to the GE junction and distal esophagus. There was an end to side anastomosis performed so it is possible, but felt unlikely, that the collection represents a portion of the proximal stomach. 2. Findings were discussed with Dr. Ritchie. Gonzales Ramsay MD Abdomen CT 01/22/17 0000 Signed Impressions: Service Date/Time: Sunday, January 22, 2017 17:12 - CONCLUSION: 1. There is an abnormal air and fluid collection located to the right of the GE junction adjacent to the proximal stomach. It extends into the posterior mediastinum. The current appearance and findings on fluoroscopy examination earlier today are indicative of a leak at the anastomosis. The current surgical drain is not directly adjacent to the collection and based on the location I do not think that we could place a drain in an appropriate location percutaneously. 2. Small bilateral pleural effusions with associated atelectasis and/or consolidation in both lower lobes. Gonzales Ramsay MD Objective Remarks Gen: 66-year-old male, critically ill currently orotracheally intubated with nasogastric tube right nares Head: NL. Atraumatic. Neck: Supple, airway widely patent. Lungs: Decreased breath sounds both bases, clear otherwise. Bilateral chest tubes in place Heart: NL S1S2, no murmur appreciated Abdomen: Mildly distended, soft. Post-surgical. Isidro drain on left/right. J- tube on left. Extremities: Warm, dry. We'll perfused Neuro: Sedated. Moves 4 limbs spontaneously. YESENIA. A/P Problem List: (1) Acute hypoxemic respiratory failure ICD Code: J96.01 - Acute respiratory failure with hypoxia Status: Acute (2) Primary adenocarcinoma of distal third of esophagus ICD Code: C15.5 - Malignant neoplasm of lower third of esophagus Status: Acute Assessment and Plan Neuro/Psych: Chronic Benzodiazepine use Chronic muscle relaxant use Currently on propofol at 40 mics grams per kilogram minutes/fentanyl drip at 250 mics grams an hour for sedation/analgesia while intubated RASS -2 Daily sedation vacation Patient is on alprazolam 0.25 mg twice a day and diazepam 5 mill grams twice a day when necessary for anxiety at home. Patient is on Flexeril as needed muscle relaxant at home. CV: A. fib with RVR currently normal sinus rhythm History of hypertension History of dyslipidemia Holding home medications of amlodipine 5 mg twice a day and losartan 50 mg twice a day in light of borderline blood pressures On digoxin daily IV. Lopressor as needed for A. fib with RVR. Currently on TPN at 83 cc an hour, decreased to 40 cc an hour and planned to stop following current bag as J-tube feeds being advanced on 01/30. Not requiring vasopressors and/or anti-hypertensives at the current time Resp: Acute hypercapnic respiratory failure Bilateral chest of secondary pleural effusions PRVC 14/550/06/15/34 Ventilator bundle Scheduled due nebs every 6 hours with albuterol nebulizers every 2 hours. Dyspnea Failed C Pap trial Follow-up chest x-ray in a.m. reveals no pneumothorax. Stable left lower lobe infiltrates. Bilateral chest tubes remain in place. GI: 01/19 -cholecystectomy, proximal gastrectomy with GE junction anastomosis and Botox injection by Dr. Ritchie 01/24 - bilateral chest tubes/open subtotal gastrectomy and jejunostomy placement Gastroesophageal reflux disease Holding lansoprazole 30 mg by mouth daily. Currently on pantoprazole 40 mg IV daily TPN decreased to 40cc an hour. Discontinue lipids while on Diprivan Isidro tubes left/right. J-tube feeds being advanced from 20 cc to 40cc/hr and then to goal which is located with surgery team. : Soto catheter for accurate I's and O's in a critically ill patient Endo: Sliding-scale insulin with Novulog every 4 hours/medium. increase Levemir from 10 to 25 units twice a day. 20 units insulin in TPN. Renal: Creatinine currently within normal limits. Accurate I's and O's Monitor and replete electrolytes, follow BUN creatinine. Heme: Leukocytosis Normocytic anemia Monitor CBC daily. Follow trends ID: Currently on Zosyn/Levaquin daily added vancomycin 01/27. Added fluconazole 400mg daily on 01/29 for mae from ANDREW drain. Blood cultures 2 one for 01/27). Wound culture with mae FEN: Replace electrolytes as clinically indicated MSK: Range of motion Access - Right subclavian CVL day #5/right upper extremity PICC. Discontinue right radial arterial line 01/27 Prophylaxis - GI - pantoprazole - DVT - SCD/pharmacological prophylaxis when okay with surgery Remains critically ill on mechanical ventilation. Time spent on critical care excluding procedures 30 minutes Luc Pate MD Jan 30, 2017 11:10
[2017-01-30] MEDS ORDERED: MIDAZOLAM HCL 2 MG/2 ML VIAL IV PUSH ONE (11:30)
[2017-01-30] MEDS: FLUCONAZOLE 400 MG PREMIX BAG 200 ML IV SCH (11:39)
[2017-01-30] MEDS: MIDAZOLAM 100 MG/100 ML INJ 100 ML IV PRN (12:00)
--- NOTE | 2017-01-30 17:09 | HHI.PR ---
Subjective Subjective Notes Intubated/Sedated Objective Vitals/I&O Vital Signs Date Time Temp Pulse Resp B/P (MAP) Pulse Ox O2 Delivery O2 Flow Rate FiO2 01/30/17 16:51 100 60 01/30/17 14:00 69 01/30/17 12:00 101.1 16 100/53 (69) 01/27/17 12:00 Mechanical Ventilator 01/27/17 07:00 6.00 Labs Laboratory Tests Test 01/30/17 05:45 White Blood Count 14.1 Red Blood Count 2.93 Hemoglobin 9.1 Hematocrit 28.4 Mean Corpuscular Volume 97.1 Mean Corpuscular Hemoglobin 31.3 Mean Corpuscular Hemoglobin Concent 32.2 Red Cell Distribution Width 13.8 Platelet Count 346 Mean Platelet Volume 8.4 Neutrophils (%) (Auto) 82.2 Lymphocytes (%) (Auto) 8.1 Monocytes (%) (Auto) 7.9 Eosinophils (%) (Auto) 1.6 Basophils (%) (Auto) 0.2 Neutrophils # (Auto) 11.6 Lymphocytes # (Auto) 1.1 Monocytes # (Auto) 1.1 Eosinophils # (Auto) 0.2 Basophils # (Auto) 0.0 CBC Comment DIFF FINAL Differential Comment Blood Urea Nitrogen 7 Creatinine 0.63 Random Glucose 274 Total Protein 5.8 Albumin 0.8 Calcium Level 7.6 Alkaline Phosphatase 91 Aspartate Amino Transf (AST/SGOT) 20 Alanine Aminotransferase (ALT/SGPT) 18 Total Bilirubin 0.3 Sodium Level 141 Potassium Level 4.2 Chloride Level 105 Carbon Dioxide Level 32.2 Anion Gap 4 Estimat Glomerular Filtration Rate 128 Date/Time Source Procedure Growth Status 01/27/17 23:12 Blood Peripheral Aerobic Blood Culture - Preliminary NO GROWTH IN 2 DAYS Resulted 01/27/17 23:12 Blood Peripheral Anaerobic Blood Culture - Preliminary NO GROWTH IN 2 DAYS Resulted 01/27/17 08:00 Sputum Endotracheal Gram Stain - Final Complete 01/27/17 08:00 Sputum Endotracheal Sputum Culture - Final MODERATE GROWTH NORMAL RESPIRATORY DEMARCUS Complete 01/27/17 08:00 Urine Catheterized Urine Urine Culture - Final NO GROWTH IN 48 HOURS. Complete 01/27/17 04:55 Wound Abdomen Gram Stain - Final Complete 01/27/17 04:55 Wound Culture - Final Saida Albicans Complete Radiology Last Impressions Chest X-Ray 01/27/17 0600 Signed Impressions: Service Date/Time: Friday, January 27, 2017 04:22 - CONCLUSION: 1. Support apparatus in satisfactory position. Mild basilar airspace disease. No pneumothorax. Trace pleural fluid remains on the left. Jordan Lozano MD Lower Extremity Ultrasound 01/27/17 0000 Signed Impressions: Service Date/Time: Friday, January 27, 2017 12:49 - CONCLUSION: No DVT in either lower extremity. Elijah Funes MD Chest Ultrasound 01/24/17 0000 Signed Impressions: Service Date/Time: Tuesday, January 24, 2017 11:13 - CONCLUSION: 1. Large left pleural effusion. Jayson Das MD Chest CT 01/23/17 0000 Signed Impressions: Service Date/Time: Monday, January 23, 2017 18:54 - CONCLUSION: 1. Moderate-sized bilateral pleural effusions. Right pleural effusion has several small areas of loculation as above. 2. Bilateral lower lobe consolidation. 3. Somewhat mass like fullness in the right infrahilar region. A contrast- enhanced CT of the chest is recommended, preferably after resolution of pleural effusions and bibasilar consolidation. Gonzales Pierre MD Upper GI/Barium Swallow X-Ray 01/22/17 0000 Signed Impressions: Service Date/Time: Sunday, January 22, 2017 12:29 - CONCLUSION: 1. Findings suspicious for a small leak at the gastroesophageal junction with contrast pooling into an air fluid collection adjacent to the GE junction and distal esophagus. There was an end to side anastomosis performed so it is possible, but felt unlikely, that the collection represents a portion of the proximal stomach. 2. Findings were discussed with Dr. Ritchie. Gonzales Ramsay MD Abdomen CT 01/22/17 0000 Signed Impressions: Service Date/Time: Sunday, January 22, 2017 17:12 - CONCLUSION: 1. There is an abnormal air and fluid collection located to the right of the GE junction adjacent to the proximal stomach. It extends into the posterior mediastinum. The current appearance and findings on fluoroscopy examination earlier today are indicative of a leak at the anastomosis. The current surgical drain is not directly adjacent to the collection and based on the location I do not think that we could place a drain in an appropriate location percutaneously. 2. Small bilateral pleural effusions with associated atelectasis and/or consolidation in both lower lobes. Gonzales Ramsay MD Cardiovascular: Regular Lungs: Clear Abdomen: Other (midline incision with allie; ANDREW x2 with thick pus; J tube with TF ) Extremities: Other (moderate generalized edema ) Narrative Exam Bilateral chest tubes to wall suction A/P Problem List: (1) Primary adenocarcinoma of distal third of esophagus ICD Codes: C15.5 - Malignant neoplasm of lower third of esophagus Status: Acute (2) Atrial fibrillation with RVR ICD Codes: I48.91 - Unspecified atrial fibrillation Status: Acute (3) Acute hypoxemic respiratory failure ICD Codes: J96.01 - Acute respiratory failure with hypoxia Status: Acute (4) Gastric adenocarcinoma ICD Codes: C16.9 - Malignant neoplasm of stomach, unspecified Status: Acute Assessment and Plan 66 year old male POD13 laparoscopic gastrectomy and cholecystectomy with Botox injection; POD6 bilateral thoracostomy tube placement; open subtotal gastrectomy ; jejunostomy tube placement -NGT to LIWS -IVF -Tolerating tube feeds via J tube---advance as tolerated to a goal of 60 cc/hr -Wean TPN -Culture from ANDREW + for Saida --- Diflucan started -Fevers; WBC trending down -Continue ANDREW management -Await pathology -Appreciate Line Repairer Tower consult Attending Statement The exam, history, and the medical decision-making described in the above note were completed with the assistance of the mid-level provider. I reviewed and agree with the findings presented. I attest that I had a [id number] encounter with the patient on the same day, and personally performed and documented my assessment and findings in the medical record. Abdominal exam: soft, non-distended, no rebound tenderness continue abx and supportive care tolerating TF Es Solis Jan 30, 2017 17:09 Josh Ritchie MD Feb 07, 2017 14:30
[2017-01-30] MEDS: fentaNYL DRIP 250 ML IV PRN (17:22)
[2017-01-30] MEDS: PANTOPRAZOLE SODIUM 40 MG VIAL IV SCH (17:23)
[2017-01-30] MEDS: ENOXAPARIN SODIUM 30 MG/0.3 ML SYRINGE SQ SCH (17:23)
[2017-01-30] MEDS: DEXTROSE 10% INJ 1,000 ML IV SCH (17:29)
[2017-01-30] MEDS ORDERED: MULTIVITAMIN INJ 10 ML, FOLIC ACID INJ 1 MG, INSULIN HUMAN REGULAR INJ 20 UNITS in AMIN... IV SCH (20:00)
[2017-01-30] MEDS ORDERED: BISACODYL 10 MG SUPP RECTAL PRN (20:00)
[2017-01-30] MEDS: LEVOFLOXACIN 500 MG PREMIX INJ 100 ML IV SCH (20:49)
[2017-01-31] VITALS (19 sets, daily range): BP systolic 105–130; BP diastolic 53–63; PULSE 60–91; RESP 15–20; TEMP 100.4–101.8; O2SAT 93–100
[2017-01-31] MEDS: PIPERACIL-TAZO 4.5 GM PREMIX 100 ML IV SCH ×4 (03:57→20:16)
[2017-01-31] MEDS: PROPOFOL 1000 MG/100 ML INJ 100 ML IV SCH ×3 (03:58→14:41)
[2017-01-31] MEDS: INSULIN ASPART SUPPLEMENTAL SCALE SQ SCH ×6 (04:00→20:00)
[2017-01-31] MEDS: CHLORHEXIDINE 0.12% (ORAL KIT) 15 ML CUP MT SCH ×2 (08:41→20:14)
[2017-01-31] MEDS: DIGOXIN 0.5 MG/2 ML VIAL IV PUSH SCH (08:55)
[2017-01-31 08:56] LABS: AUTOMATED NEUTROPHIL # 14.8 TH/MM3 (1.8-7.7); BASOPHIL # 0.1 TH/MM3 (0-0.2); BASOPHIL % 0.4 % (0.0-2.0); EOSINOPHIL # 0.3 TH/MM3 (0-0.4); EOSINOPHIL % 1.5 % (0.0-4.0); HEMATOCRIT 30.3 % (39.0-51.0); HEMO FLAGS DIFF FINAL; LYMPH % 8.6 % (9.0-44.0); LYMPHOCYTE # 1.6 TH/MM3 (1.0-4.8); MEAN CORPUSCULAR HEMOGLOBIN 30.7 PG (27.0-34.0); MEAN CORPUSCULAR HGB CONC 31.6 % (32.0-36.0); MONO % 7.6 % (0.0-8.0); NEUT % 81.9 % (16.0-70.0); PLATELET COUNT 454 TH/MM3 (150-450); RED BLOOD COUNT 3.12 MIL/MM3 (4.50-5.90); RED CELL DISTRIBUTION WIDTH 13.5 % (11.6-17.2); WHITE BLOOD COUNT 18.1 TH/MM3 (4.0-11.0)
[2017-01-31] MEDS: INSULIN DETEMIR 100 UNITS/ML VIAL SQ SCH ×2 (08:58→20:14)
[2017-01-31] MEDS: SODIUM CHLORIDE 0.9% FLUSH 10 ML FLUSH IV FLUSH SCH ×3 (08:59→20:15)
[2017-01-31] MEDS: fentaNYL DRIP 250 ML IV PRN ×2 (09:00→22:12)
[2017-01-31] MEDS: ACETAMINOPHEN 1000 MG/100 ML VIAL IV PRN ×3 (09:11→20:23)
[2017-01-31 09:14] LABS: BICARBONATE 32.2 MEQ/L (21.0-32.0); POTASSIUM 4.2 MEQ/L (3.5-5.1)
[2017-01-31] MEDS ORDERED: PHARMACY ORDERED LAB ONE (09:45)
[2017-01-31] MEDS: FLUCONAZOLE 400 MG PREMIX BAG 200 ML IV SCH (10:22)
[2017-01-31] MEDS: VANCOMYCIN INJ 2,000 MG in SODIUM CHLORID 0.9% 500 ML INJ 500 ML IV SCH ×2 (10:23→21:35)
--- NOTE | 2017-01-31 10:49 | HHI.CCPN ---
Subjective Remarks/Hospital Course 66 y/o man has developed respiratory failure following a laparoscopic partial gastrectomy performed 01/17. He was brought to the [facility] where I met him on his arrival. Intubated for hypoxemic failure and lines placed. After 2 liters NS patient making > 40 ml/hr urine. Arrived in atrial fibrillation with rate 160s, converted after fluid, analgesia, and lopressor 5 mg X 1.Loaded with antibiotics. Family is aware. 01/25: Completion gastric resection and resuscitation. Urine output marginal but perfusion good. Tapering vasopressors. 01/26: Off all vasopressors. Tmax 100.4. Currently 100.2. Tolerating TPN. White cell count elevated 27,000. Arousable and follows commands on the ventilator. Subjective 01/27: Tmax 101.5. Pancultured including blood 2 from peripheral access and sputum. Added vancomycin. Arousable doesn't follow commands. Cultures sent from around surgical site. 01/28: Remains sedated, orally intubated on mechanical ventilation. 01/29: Remains sedated, orally intubated on mechanical ventilation. Remains febrile. 01/30: Remains sedated, orally intubated on mechanical ventilation. 01/31: Remains sedated, orally intubated on mechanical ventilation. Off TPN since 01/30. J-tube feeds being advanced to goal. Still febrile. Lipscomb cultures ordered. Objective Vital Signs Date Time Temp Pulse Resp B/P (MAP) Pulse Ox O2 Delivery O2 Flow Rate FiO2 01/31/17 07:48 100 50 01/31/17 06:00 70 01/31/17 04:00 100.8 17 105/55 (72) 01/27/17 12:00 Mechanical Ventilator 01/27/17 07:00 6.00 Intake and Output 01/31/17 01/31/17 02/01/17 08:00 16:00 00:00 Intake Total 1019 ml 342 ml Output Total 470 ml Balance 549 ml 342 ml Result Diagram: 01/31/17 0801/31/17 08 Imaging Last Impressions Chest X-Ray 01/27/17 0600 Signed Impressions: Service Date/Time: Friday, January 27, 2017 04:22 - CONCLUSION: 1. Support apparatus in satisfactory position. Mild basilar airspace disease. No pneumothorax. Trace pleural fluid remains on the left. Jordan Lozano MD Chest Ultrasound 8/16/17 0000 Signed Impressions: Service Date/Time: Tuesday, January 24, 2017 11:13 - CONCLUSION: 1. Large left pleural effusion. Jayson Das MD Chest CT 01/23/17 0000 Signed Impressions: Service Date/Time: Monday, January 23, 2017 18:54 - CONCLUSION: 1. Moderate-sized bilateral pleural effusions. Right pleural effusion has several small areas of loculation as above. 2. Bilateral lower lobe consolidation. 3. Somewhat mass like fullness in the right infrahilar region. A contrast- enhanced CT of the chest is recommended, preferably after resolution of pleural effusions and bibasilar consolidation. Gonzales Pierre MD Upper GI/Barium Swallow X-Ray 01/22/17 Signed Impressions: Service Date/Time: Sunday, January 22, 2017 12:29 - CONCLUSION: 1. Findings suspicious for a small leak at the gastroesophageal junction with contrast pooling into an air fluid collection adjacent to the GE junction and distal esophagus. There was an end to side anastomosis performed so it is possible, but felt unlikely, that the collection represents a portion of the proximal stomach. 2. Findings were discussed with Dr. Ritchie. Gonzales Ramsay MD Abdomen CT 01/22/17 Signed Impressions: Service Date/Time: Sunday, January 22, 2017 17:12 - CONCLUSION: 1. There is an abnormal air and fluid collection located to the right of the GE junction adjacent to the proximal stomach. It extends into the posterior mediastinum. The current appearance and findings on fluoroscopy examination earlier today are indicative of a leak at the anastomosis. The current surgical drain is not directly adjacent to the collection and based on the location I do not think that we could place a drain in an appropriate location percutaneously. 2. Small bilateral pleural effusions with associated atelectasis and/or consolidation in both lower lobes. Gonzales Ramsay MD Objective Remarks Gen: 66-year-old male, critically ill currently orotracheally intubated with nasogastric tube right nares Head: NL. Atraumatic. Neck: Supple, airway widely patent. Lungs: Decreased breath sounds both bases, clear otherwise. Bilateral chest tubes in place Heart: NL S1S2, no murmur appreciated Abdomen: Mildly distended, soft. Post-surgical. Isidro drain on left/right. J- tube on left. Extremities: Warm, dry. We'll perfused Neuro: Sedated. Moves 4 limbs spontaneously. YESENIA. A/P Problem List: (1) Acute hypoxemic respiratory failure ICD Code: J96.01 - Acute respiratory failure with hypoxia Status: Acute (2) Primary adenocarcinoma of distal third of esophagus ICD Code: C15.5 - Malignant neoplasm of lower third of esophagus Status: Acute Assessment and Plan Neuro/Psych: Chronic Benzodiazepine use Chronic muscle relaxant use Currently on propofol/Versed/fentanyl drip for sedation/analgesia while intubated RASS -2 Daily sedation vacation Patient is on alprazolam 0.25 mg twice a day and diazepam 5 mill grams twice a day when necessary for anxiety at home. Patient is on Flexeril as needed muscle relaxant at home. CV: A. fib with RVR currently normal sinus rhythm History of hypertension History of dyslipidemia Holding home medications of amlodipine 5 mg twice a day and losartan 50 mg twice a day in light of borderline blood pressures On digoxin daily IV. Lopressor as needed for A. fib with RVR. TPN stopped 01/30. J-tube feeds being advanced to goal. Not requiring vasopressors and/or anti-hypertensives at the current time Resp: Acute hypercapnic respiratory failure Bilateral chest of secondary pleural effusions PRVC 14/550/06/15/34 Ventilator bundle Scheduled due nebs every 6 hours with albuterol nebulizers every 2 hours. Dyspnea Failed C Pap trial Follow-up chest x-ray in a.m. reveals no pneumothorax. Stable left lower lobe infiltrates. Bilateral chest tubes remain in place. GI: 01/19 -cholecystectomy, proximal gastrectomy with GE junction anastomosis and Botox injection by Dr. Ritchie 01/24 - bilateral chest tubes/open subtotal gastrectomy and jejunostomy placement Gastroesophageal reflux disease Holding lansoprazole 30 mg by mouth daily. Currently on pantoprazole 40 mg IV daily Isidro tubes left/right. J-tube feeds being advanced from 40 cc to 450cc/hr and then to goal : Soto catheter for accurate I's and O's in a critically ill patient Endo: Sliding-scale insulin with Novulog every 4 hours/medium. Levemir 25 units twice a day. Renal: Strict intake output, monitor and replete electro lites, follow BUN/creatinine. Heme: Leukocytosis Normocytic anemia Monitor CBC daily. Follow trends ID: Currently on Zosyn/Levaquin daily added vancomycin 01/27. Added fluconazole 400mg daily on 01/29 for mae from ANDREW drain. Blood cultures 2 one for 01/27). Wound culture with mae. Lipscomb cultures ordered on 01/31 as patient still spiking fevers. isidro drain output appears pretty cloudy. FEN: Replace electrolytes as clinically indicated MSK: Range of motion Access - Right subclavian CVL day #5/right upper extremity PICC. Discontinue right radial arterial line 01/27 Prophylaxis - GI - pantoprazole - DVT - SCD/pharmacological prophylaxis when okay with surgery Remains critically ill on mechanical ventilation. Time spent on critical care excluding procedures 30 minutes Luc Pate MD Jan 31, 2017 10:49
[2017-01-31 11:26] LABS: BLOOD, URINE NEG (NEG); COMMENT (UR) CATH-CULT NOT IND; CULTURE IF INDICATED CATH CULTURE NOT IND; GLUCOSE,URINE NEG (NEG); KETONE, URINE NEG (NEG); NITRITE,URINE NEG (NEG); PH, URINE 7.5 (5.0-8.5); URINE COLOR YELLOW (YELLW/STRAW)
--- NOTE | 2017-01-31 11:27 | HHI.PR ---
Subjective Subjective Notes Resting comfortably in bed in no acute distress Intubated/Sedated Objective Vitals/I&O Vital Signs Date Time Temp Pulse Resp B/P (MAP) Pulse Ox O2 Delivery O2 Flow Rate FiO2 01/31/17 08:00 45 01/31/17 08:00 91 01/31/17 08:00 101.8 19 125/60 (81) 99 01/27/17 12:00 Mechanical Ventilator 01/27/17 07:00 6.00 Labs Laboratory Tests Test 01/31/17 08:20 01/31/17 10:55 White Blood Count 18.1 Red Blood Count 3.12 Hemoglobin 9.6 Hematocrit 30.3 Mean Corpuscular Volume 97.0 Mean Corpuscular Hemoglobin 30.7 Mean Corpuscular Hemoglobin Concent 31.6 Red Cell Distribution Width 13.5 Platelet Count 454 Mean Platelet Volume 8.1 Neutrophils (%) (Auto) 81.9 Lymphocytes (%) (Auto) 8.6 Monocytes (%) (Auto) 7.6 Eosinophils (%) (Auto) 1.5 Basophils (%) (Auto) 0.4 Neutrophils # (Auto) 14.8 Lymphocytes # (Auto) 1.6 Monocytes # (Auto) 1.4 Eosinophils # (Auto) 0.3 Basophils # (Auto) 0.1 CBC Comment DIFF FINAL Differential Comment Blood Urea Nitrogen 10 Creatinine 0.60 Random Glucose 96 Calcium Level 7.6 Sodium Level 141 Potassium Level 4.2 Chloride Level 105 Carbon Dioxide Level 32.2 Anion Gap 4 Estimat Glomerular Filtration Rate 136 Vancomycin Level Trough 17.0 Date/Time Source Procedure Growth Status 01/27/17 23:12 Blood Peripheral Aerobic Blood Culture - Preliminary NO GROWTH IN 3 DAYS Resulted 01/27/17 23:12 Blood Peripheral Anaerobic Blood Culture - Preliminary NO GROWTH IN 3 DAYS Resulted 01/27/17 08:00 Sputum Endotracheal Gram Stain - Final Complete 01/27/17 08:00 Sputum Endotracheal Sputum Culture - Final MODERATE GROWTH NORMAL RESPIRATORY DEMARCUS Complete 01/27/17 08:00 Urine Catheterized Urine Urine Culture - Final NO GROWTH IN 48 HOURS. Complete 01/27/17 04:55 Wound Abdomen Gram Stain - Final Complete 01/27/17 04:55 Wound Culture - Final Saida Albicans Complete Radiology Last Impressions Chest X-Ray 01/27/17 0600 Signed Impressions: Service Date/Time: Friday, January 27, 2017 04:22 - CONCLUSION: 1. Support apparatus in satisfactory position. Mild basilar airspace disease. No pneumothorax. Trace pleural fluid remains on the left. Jordan Lozano MD Lower Extremity Ultrasound 01/27/17 0000 Signed Impressions: Service Date/Time: Friday, January 27, 2017 12:49 - CONCLUSION: No DVT in either lower extremity. Elijah Funes MD Chest Ultrasound 01/24/17 0000 Signed Impressions: Service Date/Time: Tuesday, January 24, 2017 11:13 - CONCLUSION: 1. Large left pleural effusion. Jayson Das MD Chest CT 01/23/17 0000 Signed Impressions: Service Date/Time: Monday, January 23, 2017 18:54 - CONCLUSION: 1. Moderate-sized bilateral pleural effusions. Right pleural effusion has several small areas of loculation as above. 2. Bilateral lower lobe consolidation. 3. Somewhat mass like fullness in the right infrahilar region. A contrast- enhanced CT of the chest is recommended, preferably after resolution of pleural effusions and bibasilar consolidation. Gonzales Pierre MD Upper GI/Barium Swallow X-Ray 01/22/17 Signed Impressions: Service Date/Time: Sunday, January 22, 2017 12:29 - CONCLUSION: 1. Findings suspicious for a small leak at the gastroesophageal junction with contrast pooling into an air fluid collection adjacent to the GE junction and distal esophagus. There was an end to side anastomosis performed so it is possible, but felt unlikely, that the collection represents a portion of the proximal stomach. 2. Findings were discussed with Dr. Ritchie. Gonzales Ramsay MD Abdomen CT 01/22/17 Signed Impressions: Service Date/Time: Sunday, January 22, 2017 17:12 - CONCLUSION: 1. There is an abnormal air and fluid collection located to the right of the GE junction adjacent to the proximal stomach. It extends into the posterior mediastinum. The current appearance and findings on fluoroscopy examination earlier today are indicative of a leak at the anastomosis. The current surgical drain is not directly adjacent to the collection and based on the location I do not think that we could place a drain in an appropriate location percutaneously. 2. Small bilateral pleural effusions with associated atelectasis and/or consolidation in both lower lobes. Gonzales Ramsay MD Cardiovascular: Regular Lungs: Clear Abdomen: Other (midline incision with allie; c/d/i; ANDREW x2 with thick pus; J tube in place ) Extremities: Other (modeate generalized edema ) Narrative Exam Bilateral chest tubes to wall suction A/P Problem List: (1) Primary adenocarcinoma of distal third of esophagus ICD Codes: C15.5 - Malignant neoplasm of lower third of esophagus Status: Acute (2) Atrial fibrillation with RVR ICD Codes: I48.91 - Unspecified atrial fibrillation Status: Acute (3) Acute hypoxemic respiratory failure ICD Codes: J96.01 - Acute respiratory failure with hypoxia Status: Acute (4) Gastric adenocarcinoma ICD Codes: C16.9 - Malignant neoplasm of stomach, unspecified Status: Acute Assessment and Plan 66 year old male POD14 laparoscopic gastrectomy and cholecystectomy with Botox injection; POD7 bilateral thoracostomy tube placement; open subtotal gastrectomy ; jejunostomy tube placement -NGT to LIWS -IVF -Tolerating tube feeds via J tube---will back down to 40 cc and hour until BM -TPN weaned off -Culture from ANDREW + for Sadia --- Diflucan -Fevers; WBC trending up -Continue ANDREW management -Await pathology -Appreciate Enterprise Application Developer consult Attending Statement The exam, history, and the medical decision-making described in the above note were completed with the assistance of the mid-level provider. I reviewed and agree with the findings presented. I attest that I had a [id number] encounter with the patient on the same day, and personally performed and documented my assessment and findings in the medical record. Abdominal exam: soft, non-distended continue supportive care, respiratory support, TF, working on diuresis Es Solis Jan 31, 2017 11:27 Josh Ritchie MD Feb 07, 2017 14:49
[2017-01-31] MEDS: ENOXAPARIN SODIUM 30 MG/0.3 ML SYRINGE SQ SCH (15:46)
[2017-01-31] MEDS: DEXTROSE 10% INJ 1,000 ML IV SCH (18:08)
[2017-01-31] MEDS: PANTOPRAZOLE SODIUM 40 MG VIAL IV SCH (18:36)
[2017-01-31] MEDS: RESP: ALBUTEROL 2.5 MG/IPRATROPIUM 0.5 MG NEB (PRN) NEB (20:05)
[2017-01-31] MEDS ORDERED: DEXTROSE 50% IN WATER 50 ML SYRINGE IV PRN (20:15)
[2017-01-31] MEDS: LEVOFLOXACIN 500 MG PREMIX INJ 100 ML IV SCH (21:15)
[2017-01-31] MEDS: MIDAZOLAM 100 MG/100 ML INJ 100 ML IV PRN (21:25)
[2017-02-01] VITALS (18 sets, daily range): BP systolic 115–175; BP diastolic 56–79; PULSE 60–100; RESP 14–22; TEMP 98.5–101.3; O2SAT 94–100
[2017-02-01] MEDS: PROPOFOL 1000 MG/100 ML INJ 100 ML IV SCH ×2 (01:50→07:03)
[2017-02-01] MEDS: INSULIN ASPART SUPPLEMENTAL SCALE SQ SCH ×6 (04:00→20:00)
[2017-02-01] MEDS: ACETAMINOPHEN 1000 MG/100 ML VIAL IV PRN ×2 (04:05→16:46)
[2017-02-01] MEDS: PIPERACIL-TAZO 4.5 GM PREMIX 100 ML IV SCH ×4 (04:05→21:08)
[2017-02-01 05:02] LABS: AUTOMATED NEUTROPHIL # 9.8 TH/MM3 (1.8-7.7); BASOPHIL # 0.1 TH/MM3 (0-0.2); BASOPHIL % 0.5 % (0.0-2.0); EOSINOPHIL # 0.2 TH/MM3 (0-0.4); EOSINOPHIL % 1.9 % (0.0-4.0); HEMATOCRIT 26.2 % (39.0-51.0); HEMO FLAGS DIFF FINAL; LYMPH % 7.8 % (9.0-44.0); LYMPHOCYTE # 0.9 TH/MM3 (1.0-4.8); MEAN CELL VOLUME 95.6 FL (80.0-100.0); MEAN CORPUSCULAR HEMOGLOBIN 31.5 PG (27.0-34.0); MEAN CORPUSCULAR HGB CONC 32.9 % (32.0-36.0); MONO % 7.6 % (0.0-8.0); NEUT % 82.2 % (16.0-70.0); PLATELET COUNT 446 TH/MM3 (150-450); RED BLOOD COUNT 2.74 MIL/MM3 (4.50-5.90); RED CELL DISTRIBUTION WIDTH 13.4 % (11.6-17.2); WHITE BLOOD COUNT 11.9 TH/MM3 (4.0-11.0)
[2017-02-01 05:31] LABS: ALT (GPT) 22 U/L (12-78); ANION GAP 4 MEQ/L (5-15); AST (GOT) 39 U/L (15-37); BICARBONATE 32.8 MEQ/L (21.0-32.0); BLOOD UREA NITROGEN 12 MG/DL (7-18); CHLORIDE 105 MEQ/L (98-107); GLOMERULAR FILTRATION RATE 153 ML/MIN (>89); POTASSIUM 4.2 MEQ/L (3.5-5.1); SODIUM (NA) 142 MEQ/L (136-145)
[2017-02-01 05:33] LABS: ALKALINE PHOSPHATASE 136 U/L (45-117); TOTAL BILIRUBIN ADULT 0.3 MG/DL (0.2-1.0)
--- NOTE | 2017-02-01 05:58 | RADRPT ---
EXAM DATE/TIME: 02/01/2017 05:12 [facility] COMPARISON: CHEST SINGLE AP, January 27, 2017, 4:22. INDICATIONS : Respiratory failure. MEDICAL HISTORY : Hypertension. Gastroesophageal reflux disease. Hernia, hiatal. Osteoarthritis. Stomach and esop hageal carcinoma. SURGICAL HISTORY : Abdominal surgery. ENCOUNTER: Subsequent ACUITY: 2 weeks PAIN SCORE: Non-responsive. LOCATION: chest FINDINGS: A single view of the chest demonstrates endotracheal tube in good position at the level of aortic arc h. Nasogastric tube tip in the proximal stomach. Bilateral chest tubes without pneumothorax. Right PI CC line and right central line in superior vena cava. Basilar airspace disease and small pleural effu sions similar to January 27. CONCLUSION: 1. Support apparatus in good position. Bilateral chest tubes without pneumothorax. Basal airspace dis ease. Jordan Lozano MD on February 01, 2017 at 5:54 Board Certified Radiologist. This report was verified electronically.
[2017-02-01] MEDS: CHLORHEXIDINE 0.12% (ORAL KIT) 15 ML CUP MT SCH ×2 (08:00→20:41)
[2017-02-01] MEDS: DIGOXIN 0.5 MG/2 ML VIAL IV PUSH SCH (08:30)
--- NOTE | 2017-02-01 08:47 | HHI.CCPN ---
Subjective Remarks/Hospital Course 66 y/o man has developed respiratory failure following a laparoscopic partial gastrectomy performed 01/17. He was brought to the [facility] where I met him on his arrival. Intubated for hypoxemic failure and lines placed. After 2 liters NS patient making > 40 ml/hr urine. Arrived in atrial fibrillation with rate 160s, converted after fluid, analgesia, and lopressor 5 mg X 1.Loaded with antibiotics. Family is aware. 01/25: Completion gastric resection and resuscitation. Urine output marginal but perfusion good. Tapering vasopressors. 01/26: Off all vasopressors. Tmax 100.4. Currently 100.2. Tolerating TPN. White cell count elevated 27,000. Arousable and follows commands on the ventilator. Subjective 01/27: Tmax 101.5. Pancultured including blood 2 from peripheral access and sputum. Added vancomycin. Arousable doesn't follow commands. Cultures sent from around surgical site. 01/28: Remains sedated, orally intubated on mechanical ventilation. 01/29: Remains sedated, orally intubated on mechanical ventilation. Remains febrile. 01/30: Remains sedated, orally intubated on mechanical ventilation. 01/31: Remains sedated, orally intubated on mechanical ventilation. Off TPN since 01/30. J-tube feeds being advanced to goal. Still febrile. Lipscomb cultures ordered. 02/01: Remains sedated, orally intubated on mechanical ventilation. Feeling C Pap trials. Still having fevers. WBCs down to 11,000. Objective Vital Signs Date Time Temp Pulse Resp B/P (MAP) Pulse Ox O2 Delivery O2 Flow Rate FiO2 02/01/17 06:00 60 02/01/17 04:10 96 50 02/01/17 04:00 100.9 14 118/58 (78) Intake and Output 02/01/17 02/01/17 02/02/17 08:00 16:00 00:00 Intake Total 3520 ml Output Total 1128 ml Balance 2392 ml Result Diagram: 02/01/17 0450 02/01/17 0450 Imaging Last Impressions Chest X-Ray 01/27/17 0600 Signed Impressions: Service Date/Time: Friday, January 27, 2017 04:22 - CONCLUSION: 1. Support apparatus in satisfactory position. Mild basilar airspace disease. No pneumothorax. Trace pleural fluid remains on the left. Jordan Lozano MD Chest Ultrasound 01/24/17 0000 Signed Impressions: Service Date/Time: Tuesday, January 24, 2017 11:13 - CONCLUSION: 1. Large left pleural effusion. Jayson Das MD Chest CT 01/23/17 0000 Signed Impressions: Service Date/Time: Monday, January 23, 2017 18:54 - CONCLUSION: 1. Moderate-sized bilateral pleural effusions. Right pleural effusion has several small areas of loculation as above. 2. Bilateral lower lobe consolidation. 3. Somewhat mass like fullness in the right infrahilar region. A contrast- enhanced CT of the chest is recommended, preferably after resolution of pleural effusions and bibasilar consolidation. Gonzales Pierre MD Upper GI/Barium Swallow X-Ray 01/22/17 0000 Signed Impressions: Service Date/Time: Sunday, January 22, 2017 12:29 - CONCLUSION: 1. Findings suspicious for a small leak at the gastroesophageal junction with contrast pooling into an air fluid collection adjacent to the GE junction and distal esophagus. There was an end to side anastomosis performed so it is possible, but felt unlikely, that the collection represents a portion of the proximal stomach. 2. Findings were discussed with Dr. Ritchie. Gonzales Ramsay MD Abdomen CT 01/22/17 0000 Signed Impressions: Service Date/Time: Sunday, January 22, 2017 17:12 - CONCLUSION: 1. There is an abnormal air and fluid collection located to the right of the GE junction adjacent to the proximal stomach. It extends into the posterior mediastinum. The current appearance and findings on fluoroscopy examination earlier today are indicative of a leak at the anastomosis. The current surgical drain is not directly adjacent to the collection and based on the location I do not think that we could place a drain in an appropriate location percutaneously. 2. Small bilateral pleural effusions with associated atelectasis and/or consolidation in both lower lobes. Gonzales Ramsay MD Objective Remarks Gen: 66-year-old male, critically ill currently orotracheally intubated with nasogastric tube right nares Head: NL. Atraumatic. Neck: Supple, airway widely patent. Lungs: Decreased breath sounds both bases, clear otherwise. Bilateral chest tubes in place Heart: NL S1S2, no murmur appreciated Abdomen: Mildly distended, soft. Post-surgical. Isidro drain on left/right. J- tube on left. Extremities: Warm, dry. We'll perfused Neuro: Sedated. Moves 4 limbs spontaneously. YESENIA. Urinary Catheter: Yes Assessment to: Continue A/P Problem List: (1) Acute hypoxemic respiratory failure ICD Code: J96.01 - Acute respiratory failure with hypoxia Status: Acute (2) Primary adenocarcinoma of distal third of esophagus ICD Code: C15.5 - Malignant neoplasm of lower third of esophagus Status: Acute Assessment and Plan Neuro/Psych: Chronic Benzodiazepine use Chronic muscle relaxant use Currently on propofol/Versed/fentanyl drip for sedation/analgesia while intubated. Titrate off propofol if tolerated. RASS -2 Daily sedation vacation Patient is on alprazolam 0.25 mg twice a day and diazepam 5 mill grams twice a day when necessary for anxiety at home. Patient is on Flexeril as needed muscle relaxant at home. CV: A. fib with RVR currently normal sinus rhythm History of hypertension History of dyslipidemia Holding home medications of amlodipine 5 mg twice a day and losartan 50 mg twice a day in light of borderline blood pressures On digoxin daily IV. Lopressor as needed for A. fib with RVR. Follow-up digoxin level. TPN stopped 01/30. J-tube feeds being advanced to goal. Not requiring vasopressors and/or anti-hypertensives at the current time Resp: Acute hypercapnic respiratory failure Bilateral chest of secondary pleural effusions [facility] 14//06/15/34 Ventilator bundle Scheduled due nebs every 6 hours with albuterol nebulizers every 2 hours. Dyspnea Failing C Pap trial Bilateral pigtail catheters remain in place-minimal drainage. GI: 01/19 -cholecystectomy, proximal gastrectomy with GE junction anastomosis and Botox injection by Dr. Ritchie 01/24 - bilateral chest tubes/open subtotal gastrectomy and jejunostomy placement Gastroesophageal reflux disease Holding lansoprazole 30 mg by mouth daily. Currently on pantoprazole 40 mg IV daily Isidro tubes left/right. J-tube feeds at 40 cc, advance to goal of 50 cc an hour as tolerated : Soto catheter for accurate I's and O's in a critically ill patient Endo: Sliding-scale insulin with Novolog every 4 hours/medium. Decrease Levemir from 25 units twice a day to 10 units twice a day on 02/01 in view of lower blood glucose levels. Renal: Strict intake output, monitor and replete electro lites, follow BUN/creatinine. Heme: Leukocytosis Normocytic anemia Monitor CBC daily. Follow trends ID: Currently on Zosyn, added vancomycin 01/27. Added fluconazole 400mg daily on for mae from ANDREW drain. Stopped levaquin 02/01 All blood cultures negative so far.. Wound culture with mae. Lipscomb cultures ordered on 01/31 as patient still spiking fevers. left side isidro drain output appears pretty cloudy. May need to repeat CT abdomen pelvis by next week if continues to spike fevers. FEN: Replace electrolytes as clinically indicated MSK: Range of motion Access - Right subclavian CVL 01/24/right upper extremity PICC placed 01/23 (discontinue 02/01). Discontinued right radial arterial line 01/27 Prophylaxis - GI - pantoprazole - DVT - SCD/pharmacological prophylaxis when okay with surgery Updated patient's at bedside in detail and she voiced understanding and was agreeable with plan of care. Remains critically ill on mechanical ventilation. Time spent on critical care excluding procedures 40 minutes Luc Pate MD Feb 01, 2017 08:47
[2017-02-01] MEDS: SODIUM CHLORIDE 0.9% FLUSH 10 ML FLUSH IV FLUSH SCH ×3 (09:00→20:46)
[2017-02-01] MEDS: INSULIN DETEMIR 100 UNITS/ML VIAL SQ SCH ×2 (09:00→20:51)
[2017-02-01] MEDS: FLUCONAZOLE 400 MG PREMIX BAG 200 ML IV SCH (10:02)
[2017-02-01] MEDS: VANCOMYCIN INJ 2,000 MG in SODIUM CHLORID 0.9% 500 ML INJ 500 ML IV SCH ×2 (10:03→22:17)
[2017-02-01] MEDS: fentaNYL DRIP 250 ML IV PRN ×2 (10:14→22:18)
[2017-02-01] MEDS: ENOXAPARIN SODIUM 30 MG/0.3 ML SYRINGE SQ SCH (15:34)
[2017-02-01] MEDS: MIDAZOLAM 100 MG/100 ML INJ 100 ML IV PRN (16:02)
--- NOTE | 2017-02-01 16:30 | HHI.PR ---
Subjective Subjective Notes Resting in bed No issues overnight Low grade fevers Objective Vitals/I&O Vital Signs Date Time Temp Pulse Resp B/P (MAP) Pulse Ox O2 Delivery O2 Flow Rate FiO2 02/01/17 16:17 96 40 02/01/17 14:00 76 02/01/17 12:00 99.7 18 136/64 (88) 02/01/17 08:07 Ventilator Labs Laboratory Tests Test 02/01/17 04:50 White Blood Count 11.9 Red Blood Count 2.74 Hemoglobin 8.6 Hematocrit 26.2 Mean Corpuscular Volume 95.6 Mean Corpuscular Hemoglobin 31.5 Mean Corpuscular Hemoglobin Concent 32.9 Red Cell Distribution Width 13.4 Platelet Count 446 Mean Platelet Volume 7.4 Neutrophils (%) (Auto) 82.2 Lymphocytes (%) (Auto) 7.8 Monocytes (%) (Auto) 7.6 Eosinophils (%) (Auto) 1.9 Basophils (%) (Auto) 0.5 Neutrophils # (Auto) 9.8 Lymphocytes # (Auto) 0.9 Monocytes # (Auto) 0.9 Eosinophils # (Auto) 0.2 Basophils # (Auto) 0.1 CBC Comment DIFF FINAL Differential Comment Blood Urea Nitrogen 12 Creatinine 0.54 Random Glucose 100 Total Protein 6.0 Albumin 0.8 Calcium Level 7.7 Alkaline Phosphatase 136 Aspartate Amino Transf (AST/SGOT) 39 Alanine Aminotransferase (ALT/SGPT) 22 Total Bilirubin 0.3 Sodium Level 142 Potassium Level 4.2 Chloride Level 105 Carbon Dioxide Level 32.8 Anion Gap 4 Estimat Glomerular Filtration Rate 153 Date/Time Source Procedure Growth Status 01/31/17 14:30 Blood Peripheral Aerobic Blood Culture - Preliminary NO GROWTH IN 1 DAY Resulted 01/31/17 14:30 Blood Peripheral Anaerobic Blood Culture - Preliminary NO GROWTH IN 1 DAY Resulted 01/31/17 12:20 Sputum Endotracheal Gram Stain - Final Resulted 01/31/17 12:20 Sputum Endotracheal Sputum Culture - Preliminary RARE GROWTH NORMAL RESPIRATORY DEMARCUS ... Resulted 01/27/17 08:00 Urine Catheterized Urine Urine Culture - Final NO GROWTH IN 48 HOURS. Complete 01/27/17 04:55 Wound Abdomen Gram Stain - Final Complete 01/27/17 04:55 Wound Culture - Final Saida Albicans Complete Radiology Last Impressions Chest X-Ray 01/27/17 0600 Signed Impressions: Service Date/Time: Friday, January 27, 2017 04:22 - CONCLUSION: 1. Support apparatus in satisfactory position. Mild basilar airspace disease. No pneumothorax. Trace pleural fluid remains on the left. Jordan Lozano MD Lower Extremity Ultrasound 01/27/17 0000 Signed Impressions: Service Date/Time: Friday, January 27, 2017 12:49 - CONCLUSION: No DVT in either lower extremity. Elijah Funes MD Chest Ultrasound 01/24/17 0000 Signed Impressions: Service Date/Time: Tuesday, January 24, 2017 11:13 - CONCLUSION: 1. Large left pleural effusion. Jayson Das MD Chest CT 01/23/17 0000 Signed Impressions: Service Date/Time: Monday, January 23, 2017 18:54 - CONCLUSION: 1. Moderate-sized bilateral pleural effusions. Right pleural effusion has several small areas of loculation as above. 2. Bilateral lower lobe consolidation. 3. Somewhat mass like fullness in the right infrahilar region. A contrast- enhanced CT of the chest is recommended, preferably after resolution of pleural effusions and bibasilar consolidation. Gonzales Pierre MD Upper GI/Barium Swallow X-Ray 01/22/17 0000 Signed Impressions: Service Date/Time: Sunday, January 22, 2017 12:29 - CONCLUSION: 1. Findings suspicious for a small leak at the gastroesophageal junction with contrast pooling into an air fluid collection adjacent to the GE junction and distal esophagus. There was an end to side anastomosis performed so it is possible, but felt unlikely, that the collection represents a portion of the proximal stomach. 2. Findings were discussed with Dr. Ritchie. Gonzales Ramsay MD Abdomen CT 01/22/17 0000 Signed Impressions: Service Date/Time: Sunday, January 22, 2017 17:12 - CONCLUSION: 1. There is an abnormal air and fluid collection located to the right of the GE junction adjacent to the proximal stomach. It extends into the posterior mediastinum. The current appearance and findings on fluoroscopy examination earlier today are indicative of a leak at the anastomosis. The current surgical drain is not directly adjacent to the collection and based on the location I do not think that we could place a drain in an appropriate location percutaneously. 2. Small bilateral pleural effusions with associated atelectasis and/or consolidation in both lower lobes. Gonzales Ramsay MD Cardiovascular: Regular Lungs: Clear Abdomen: Other (midline incision with allie---c/d/i; ANDREW (RIGHT) with holley drainage; ANDREW (LEFT) with systems protection technician drainage; abdomen minimally distended ) Extremities: Other (moderate generalized edema ) Narrative Exam Bilateral chest tubes to wall suction A/P Problem List: (1) Primary adenocarcinoma of distal third of esophagus ICD Codes: C15.5 - Malignant neoplasm of lower third of esophagus Status: Acute (2) Atrial fibrillation with RVR ICD Codes: I48.91 - Unspecified atrial fibrillation Status: Acute (3) Acute hypoxemic respiratory failure ICD Codes: J96.01 - Acute respiratory failure with hypoxia Status: Acute (4) Gastric adenocarcinoma ICD Codes: C16.9 - Malignant neoplasm of stomach, unspecified Status: Acute Assessment and Plan 66 year old male POD15 laparoscopic gastrectomy and cholecystectomy with Botox injection; POD8 bilateral thoracostomy tube placement; open subtotal gastrectomy ; jejunostomy tube placement -NGT to LIWS -IVF -Tolerating tube feeds via J tube- 60cc/hr -Culture from ANDREW + for Saida --- Diflucan -Fevers; WBC trending down -Continue ANDREW management -Appreciate Weight Recorder consult Attending Statement The exam, history, and the medical decision-making described in the above note were completed with the assistance of the mid-level provider. I reviewed and agree with the findings presented. I attest that I had a [id number] encounter with the patient on the same day, and personally performed and documented my assessment and findings in the medical record. Abdominal exam: soft, non-distended, no rebound tenderness continue supportive care high risk for leak leave NG, abdominal drains Es Solis Feb 01, 2017 16:30 Josh Ritchie MD Feb 07, 2017 14:51
[2017-02-01] MEDS: PANTOPRAZOLE SODIUM 40 MG VIAL IV SCH (16:46)
[2017-02-01] MEDS: DEXTROSE 10% INJ 1,000 ML IV SCH (18:15)
--- NOTE | 2017-02-01 21:39 | RADRPT ---
EXAM DATE/TIME: 02/01/2017 21:16 [place] COMPARISON: CHEST SINGLE AP, February 01, 2017, 5:12. INDICATIONS : Right pigtail removal, evaluate right chest. MEDICAL HISTORY : None. SURGICAL HISTORY : None. ENCOUNTER: Subsequent ACUITY: 1 day PAIN SCORE: Non-responsive. LOCATION: Right chest FINDINGS: Portable upright AP view of the chest demonstrates a normal-sized cardiac silhouette. ETT and nasogas tric tube are present. Right subclavian central line is present with distal tip in the SVC. Left pigt ail pleural catheter remains present. The right pleural catheter has been removed. No pneumothorax is visualized. There is stable airspace consolidation versus atelectasis in the right lower lung zone a nd stable left basilar pleural-parenchymal opacity. CONCLUSION: 1. No pneumothorax or significant change following right chest tube removal. There is stable consolid ation versus atelectasis in the right lower lung zone. 2. Left chest tube is present and no pneumothorax is visualized. There is stable left basilar opacity . Gonzales Ramsay MD on February 01, 2017 at 21:34 Board Certified Radiologist. This report was verified electronically.
[2017-02-02] VITALS (18 sets, daily range): BP systolic 132–165; BP diastolic 60–82; PULSE 69–87; RESP 16–20; TEMP 99.1–100.8; O2SAT 95–100
[2017-02-02] MEDS: INSULIN ASPART SUPPLEMENTAL SCALE SQ SCH ×6 (04:00→20:00)
[2017-02-02] MEDS: MIDAZOLAM 100 MG/100 ML INJ 100 ML IV PRN ×2 (04:08→16:43)
[2017-02-02] MEDS: PIPERACIL-TAZO 4.5 GM PREMIX 100 ML IV SCH ×4 (04:08→20:30)
[2017-02-02 04:27] LABS: AUTOMATED NEUTROPHIL # 6.3 TH/MM3 (1.8-7.7); BASOPHIL % 0.5 % (0.0-2.0); EOSINOPHIL # 0.3 TH/MM3 (0-0.4); EOSINOPHIL % 3.1 % (0.0-4.0); HEMATOCRIT 28.7 % (39.0-51.0); LYMPH % 16.1 % (9.0-44.0); LYMPHOCYTE # 1.4 TH/MM3 (1.0-4.8); MEAN CORPUSCULAR HEMOGLOBIN 31.7 PG (27.0-34.0); MEAN CORPUSCULAR HGB CONC 33.3 % (32.0-36.0); MONO % 9.9 % (0.0-8.0); NEUT % 70.4 % (16.0-70.0); PLATELET COUNT 467 TH/MM3 (150-450); RED BLOOD COUNT 3.02 MIL/MM3 (4.50-5.90); RED CELL DISTRIBUTION WIDTH 13.2 % (11.6-17.2)
[2017-02-02 04:28] LABS: HEMO FLAGS AUTO DIFF
[2017-02-02 04:59] LABS: BICARBONATE 32.3 MEQ/L (21.0-32.0); CALCIUM-PROTEIN CORRECTED 7.5 MG/DL (8.5-10.1); POTASSIUM 3.9 MEQ/L (3.5-5.1); TOTAL BILIRUBIN ADULT 0.2 MG/DL (0.2-1.0)
[2017-02-02 05:40] LABS: BANDS 20 % (0-6); EOSINOPHILS 6 % (0-4); METAMYELOCYTES 1 % (0-1); MYELOCYTES 1 % (0-0); NEUTROPHIL # MANUAL DIFF 7.1 TH/MM3 (1.8-7.7); POLYS (SEG NEUTROPHILS) 57 % (16-70); WBC DIFF SAMPLE 100
[2017-02-02 05:41] LABS: DOHLE BODIES PRESENT (NONE SEEN); PLATELET ESTIMATE SMEAR NORMAL (NORMAL); PLATELET MORPHOLOGY NORMAL (NORMAL); SCAN/DIFF FINAL DIFF MANUAL; TOXIC GRANULATION 1+ (NORMAL)
[2017-02-02] MEDS: ACETAMINOPHEN 1000 MG/100 ML VIAL IV PRN (06:26)
[2017-02-02] MEDS: CHLORHEXIDINE 0.12% (ORAL KIT) 15 ML CUP MT SCH ×2 (08:00→20:30)
[2017-02-02] MEDS: SODIUM CHLORIDE 0.9% FLUSH 10 ML FLUSH IV FLUSH SCH ×3 (09:00→20:30)
[2017-02-02] MEDS: INSULIN DETEMIR 100 UNITS/ML VIAL SQ SCH ×2 (09:00→20:49)
[2017-02-02] MEDS: DIGOXIN 0.5 MG/2 ML VIAL IV PUSH SCH (09:07)
[2017-02-02] MEDS: fentaNYL DRIP 250 ML IV PRN ×2 (09:33→16:43)
[2017-02-02] MEDS: VANCOMYCIN INJ 2,000 MG in SODIUM CHLORID 0.9% 500 ML INJ 500 ML IV SCH ×2 (09:34→20:49)
[2017-02-02] MEDS ORDERED: PHARMACY ORDERED LAB ONE (09:45)
[2017-02-02] MEDS: FLUCONAZOLE 400 MG PREMIX BAG 200 ML IV SCH (11:00)
[2017-02-02] MEDS ORDERED: DEXMEDETOMIDINE INJ 200 MCG in SODIUM CHLORIDE 0.9% INJ 50 ML IV PRN (14:35)
--- NOTE | 2017-02-02 14:44 | HHI.CCPN ---
Subjective Remarks/Hospital Course 66 y/o man has developed respiratory failure following a laparoscopic partial gastrectomy performed 01/17. He was brought to the [facility] where I met him on his arrival. Intubated for hypoxemic failure and lines placed. After 2 liters NS patient making > 40 ml/hr urine. Arrived in atrial fibrillation with rate 160s, converted after fluid, analgesia, and lopressor 5 mg X 1.Loaded with antibiotics. Family is aware. 01/25: Completion gastric resection and resuscitation. Urine output marginal but perfusion good. Tapering vasopressors. 01/26: Off all vasopressors. Tmax 100.4. Currently 100.2. Tolerating TPN. White cell count elevated 27,000. Arousable and follows commands on the ventilator. Subjective 01/27: Tmax 101.5. Pancultured including blood 2 from peripheral access and sputum. Added vancomycin. Arousable doesn't follow commands. Cultures sent from around surgical site. 01/28: Remains sedated, orally intubated on mechanical ventilation. 01/29: Remains sedated, orally intubated on mechanical ventilation. Remains febrile. 01/30: Remains sedated, orally intubated on mechanical ventilation. 01/31: Remains sedated, orally intubated on mechanical ventilation. Off TPN since 01/30. J-tube feeds being advanced to goal. Still febrile. Lipscomb cultures ordered. 02/01: Remains sedated, orally intubated on mechanical ventilation. Failing C Pap trials. Still having fevers. WBCs down to 11,000. 02/02: Remains sedated, orally intubated on mechanical ventilation. Tolerating J -tube feeds. Still having temperature spikes. Objective Vital Signs Date Time Temp Pulse Resp B/P (MAP) Pulse Ox O2 Delivery O2 Flow Rate FiO2 02/02/17 12:00 70 02/02/17 12:00 40 02/02/17 12:00 99.1 16 135/64 (87) 98 02/01/17 08:07 Ventilator Intake and Output 02/02/17 02/02/17 02/02/17 07:59 15:59 23:59 Intake Total 1797 ml 820 ml Output Total 1470 ml Balance 327 ml 820 ml Result Diagram: 02/02/17 0412 02/02/17 0412 Other Results Microbiology Date/Time Source Procedure Growth Status 01/31/17 12:20 Sputum Endotracheal Gram Stain - Final Complete 01/31/17 12:20 Sputum Endotracheal Sputum Culture - Final RARE GROWTH NORMAL RESPIRATORY DEMARCUS Complete Imaging Last 48 hours Impressions Chest X-Ray 02/01/17 0600 Signed Impressions: Service Date/Time: January 05:12 - CONCLUSION: 1. Support apparatus in good position. Bilateral chest tubes without pneumothorax. Basal airspace disease. Jordan Lozano MD Chest X-Ray 02/01/17 0000 Signed Impressions: Service Date/Time: January 21:16 - CONCLUSION: 1. No pneumothorax or significant change following right chest tube removal. There is stable consolidation versus atelectasis in the right lower lung zone. 2. Left chest tube is present and no pneumothorax is visualized. There is stable left basilar opacity. Gonzales Ramsay MD Last Impressions Chest X-Ray 01/27/17 0600 Signed Impressions: Service Date/Time: Friday, January 27, 2017 04:22 - CONCLUSION: 1. Support apparatus in satisfactory position. Mild basilar airspace disease. No pneumothorax. Trace pleural fluid remains on the left. Jordan Lozano MD Chest Ultrasound 01/24/17 0000 Signed Impressions: Service Date/Time: Tuesday, January 24, 2017 11:13 - CONCLUSION: 1. Large left pleural effusion. Jayson Das MD Chest CT 01/23/17 0000 Signed Impressions: Service Date/Time: Monday, January 23, 2017 18:54 - CONCLUSION: 1. Moderate-sized bilateral pleural effusions. Right pleural effusion has several small areas of loculation as above. 2. Bilateral lower lobe consolidation. 3. Somewhat mass like fullness in the right infrahilar region. A contrast- enhanced CT of the chest is recommended, preferably after resolution of pleural effusions and bibasilar consolidation. Gonzales Pierre MD Upper GI/Barium Swallow X-Ray 01/22/17 0000 Signed Impressions: Service Date/Time: Sunday, January 22, 2017 12:29 - CONCLUSION: 1. Findings suspicious for a small leak at the gastroesophageal junction with contrast pooling into an air fluid collection adjacent to the GE junction and distal esophagus. There was an end to side anastomosis performed so it is possible, but felt unlikely, that the collection represents a portion of the proximal stomach. 2. Findings were discussed with Dr. Ritchie. Gonzales Ramsay MD Abdomen CT 01/22/17 0000 Signed Impressions: Service Date/Time: Sunday, January 22, 2017 17:12 - CONCLUSION: 1. There is an abnormal air and fluid collection located to the right of the GE junction adjacent to the proximal stomach. It extends into the posterior mediastinum. The current appearance and findings on fluoroscopy examination earlier today are indicative of a leak at the anastomosis. The current surgical drain is not directly adjacent to the collection and based on the location I do not think that we could place a drain in an appropriate location percutaneously. 2. Small bilateral pleural effusions with associated atelectasis and/or consolidation in both lower lobes. Gonzales Ramsay MD Objective Remarks Gen: 66-year-old male, critically ill currently orotracheally intubated with nasogastric tube right nares Head: NL. Atraumatic. Neck: Supple, airway widely patent. Lungs: Decreased breath sounds both bases, clear otherwise. Bilateral chest tubes in place Heart: NL S1S2, no murmur appreciated Abdomen: Mildly distended, soft. Post-surgical. Isidro drain on left/right. J- tube on left. Extremities: Warm, dry. We'll perfused Neuro: Sedated. Moves 4 limbs spontaneously. YESENIA. Urinary Catheter: Yes Assessment to: Continue Vascular Central Line Catheter: Yes Assessment to: Continue Line: Central Venous Catheter A/P Problem List: (1) Acute hypoxemic respiratory failure ICD Code: J96.01 - Acute respiratory failure with hypoxia Status: Acute (2) Primary adenocarcinoma of distal third of esophagus ICD Code: C15.5 - Malignant neoplasm of lower third of esophagus Status: Acute Assessment and Plan Neuro/Psych: Chronic Benzodiazepine use Chronic muscle relaxant use Currently on propofol/Versed/fentanyl drip for sedation/analgesia while intubated. Titrate off propofol if tolerated. Add Precedex to facilitate C Pap trials. RASS -2 Daily sedation vacation Patient is on alprazolam 0.25 mg twice a day and diazepam 5 mill grams twice a day when necessary for anxiety at home. Patient is on Flexeril as needed muscle relaxant at home. CV: A. fib with RVR currently normal sinus rhythm History of hypertension History of dyslipidemia Holding home medications of amlodipine 5 mg twice a day and losartan 50 mg twice a day in light of borderline blood pressures Stop IV digoxin. Lopressor as needed for A. fib with RVR. TPN stopped 01/30. J-tube feeds advanced to goal. Not requiring vasopressors and/or anti-hypertensives at the current time Resp: Acute hypercapnic respiratory failure Bilateral chest of secondary pleural effusions [facility] 14/06/15/34 Ventilator bundle Scheduled due nebs every 6 hours with albuterol nebulizers every 2 hours. Dyspnea Failing C Pap trial Right pigtail catheter removed on 02/01, left pigtail catheter possibly to be removed by surgery 02/02 GI: 01/19 -cholecystectomy, proximal gastrectomy with GE junction anastomosis and Botox injection by Dr. Ritchie 01/24 - bilateral chest tubes/open subtotal gastrectomy and jejunostomy placement Gastroesophageal reflux disease Holding lansoprazole 30 mg by mouth daily. Currently on pantoprazole 40 mg IV daily Isidro tubes left/right. J-tube feeds at 40 cc, advance to goal of 50 cc an hour as tolerated : Soto catheter for accurate I's and O's in a critically ill patient Endo: Sliding-scale insulin with Novolog every 4 hours/medium. Levemir from 10 units twice a day on 02/01 in view of lower blood glucose levels. Renal: Strict intake output, monitor and replete electro lites, follow BUN/creatinine. Heme: Leukocytosis Normocytic anemia Monitor CBC daily. Follow trends ID: Currently on Zosyn, added vancomycin 01/27. Added fluconazole 400mg daily on for mae from ANDREW drain. Stopped levaquin 02/01 All blood cultures negative so far.. Wound culture with mae. Lipscomb cultures ordered on 01/31 as patient still spiking fevers. left side isidro drain output appears pretty cloudy. May need to repeat CT abdomen pelvis by next week if continues to spike fevers. Consider ID consult for antibiotic management in view of ongoing fevers FEN: Replace electrolytes as clinically indicated MSK: Range of motion Access - Right subclavian CVL 01/24, right upper extremity PICC placed 01/23 ( discontinue 02/01). Discontinued right radial arterial line 01/27 Prophylaxis - GI - pantoprazole - DVT - SCD/pharmacological prophylaxis when okay with surgery Updated patient's at bedside in detail and she voiced understanding and was agreeable with plan of care on 02/01. Remains critically ill on mechanical ventilation. Time spent on critical care excluding procedures 40 minutes Luc Pate MD Feb 02, 2017 14:44
[2017-02-02] MEDS ORDERED: DEXMEDETOMIDINE HCL 200 MCG/2 ML VIAL IV PUSH ONE (14:45)
--- NOTE | 2017-02-02 16:22 | HHI.PR ---
Subjective Subjective Notes Resting in bed No acute issues overnight Objective Vitals/I&O Vital Signs Date Time Temp Pulse Resp B/P (MAP) Pulse Ox O2 Delivery O2 Flow Rate FiO2 02/02/17 14:00 70 02/02/17 12:00 40 02/02/17 12:00 99.1 16 135/64 (87) 98 02/01/17 08:07 Ventilator Labs Laboratory Tests Test 02/02/17 04:12 02/02/17 09:40 White Blood Count 9.0 Red Blood Count 3.02 Hemoglobin 9.6 Hematocrit 28.7 Mean Corpuscular Volume 95.0 Mean Corpuscular Hemoglobin 31.7 Mean Corpuscular Hemoglobin Concent 33.3 Red Cell Distribution Width 13.2 Platelet Count 467 Mean Platelet Volume 7.9 Neutrophils (%) (Auto) 70.4 Lymphocytes (%) (Auto) 16.1 Monocytes (%) (Auto) 9.9 Eosinophils (%) (Auto) 3.1 Basophils (%) (Auto) 0.5 Neutrophils # (Auto) 6.3 Lymphocytes # (Auto) 1.4 Monocytes # (Auto) 0.9 Eosinophils # (Auto) 0.3 Basophils # (Auto) 0.0 CBC Comment AUTO DIFF Differential Total Cells Counted 100 Neutrophils % (Manual) 57 Band Neutrophils % 20 Lymphocytes % 7 Monocytes % 8 Eosinophils % 6 Neutrophils # (Manual) 7.1 Metamyelocytes 1 Myelocytes 1 Differential Comment FINAL DIFF MANUAL Toxic Granulation 1+ Dohle Bodies PRESENT Platelet Estimate NORMAL Platelet Morphology Comment NORMAL Blood Urea Nitrogen 13 Creatinine 0.54 Random Glucose 114 Total Protein 6.5 Albumin 0.9 Calcium Level 7.2 Alkaline Phosphatase 188 Aspartate Amino Transf (AST/SGOT) 47 Alanine Aminotransferase (ALT/SGPT) 29 Total Bilirubin 0.2 Sodium Level 141 Potassium Level 3.9 Chloride Level 105 Carbon Dioxide Level 32.3 Anion Gap 4 Estimat Glomerular Filtration Rate 153 Protein Corrected Calcium 7.5 Prealbumin 9 Vancomycin Level Trough 16.0 Date/Time Source Procedure Growth Status 01/31/17 14:30 Blood Peripheral Aerobic Blood Culture - Preliminary NO GROWTH IN 2 DAYS Resulted 01/31/17 14:30 Blood Peripheral Anaerobic Blood Culture - Preliminary NO GROWTH IN 2 DAYS Resulted 01/31/17 12:20 Sputum Endotracheal Gram Stain - Final Complete 01/31/17 12:20 Sputum Endotracheal Sputum Culture - Final RARE GROWTH NORMAL RESPIRATORY DEMARCUS Complete 01/27/17 08:00 Urine Catheterized Urine Urine Culture - Final NO GROWTH IN 48 HOURS. Complete 01/27/17 04:55 Wound Abdomen Gram Stain - Final Complete 01/27/17 04:55 Wound Culture - Final Saida Albicans Complete Radiology Last Impressions Chest X-Ray 01/27/17 0600 Signed Impressions: Service Date/Time: Friday, January 27, 2017 04:22 - CONCLUSION: 1. Support apparatus in satisfactory position. Mild basilar airspace disease. No pneumothorax. Trace pleural fluid remains on the left. Joradn Lozano MD Lower Extremity Ultrasound 01/27/17 0000 Signed Impressions: Service Date/Time: Friday, January 27, 2017 12:49 - CONCLUSION: No DVT in either lower extremity. Elijah Funes MD Chest Ultrasound 01/24/17 0000 Signed Impressions: Service Date/Time: Tuesday, January 24, 2017 11:13 - CONCLUSION: 1. Large left pleural effusion. Jayson Das MD Chest CT 01/23/17 0000 Signed Impressions: Service Date/Time: Monday, January 23, 2017 18:54 - CONCLUSION: 1. Moderate-sized bilateral pleural effusions. Right pleural effusion has several small areas of loculation as above. 2. Bilateral lower lobe consolidation. 3. Somewhat mass like fullness in the right infrahilar region. A contrast- enhanced CT of the chest is recommended, preferably after resolution of pleural effusions and bibasilar consolidation. Gonzales Pierre MD Upper GI/Barium Swallow X-Ray 01/22/17 0000 Signed Impressions: Service Date/Time: Sunday, January 22, 2017 12:29 - CONCLUSION: 1. Findings suspicious for a small leak at the gastroesophageal junction with contrast pooling into an air fluid collection adjacent to the GE junction and distal esophagus. There was an end to side anastomosis performed so it is possible, but felt unlikely, that the collection represents a portion of the proximal stomach. 2. Findings were discussed with Dr. Ritchie. Gonzales Ramsay MD Abdomen CT 01/22/17 0000 Signed Impressions: Service Date/Time: Sunday, January 22, 2017 17:12 - CONCLUSION: 1. There is an abnormal air and fluid collection located to the right of the GE junction adjacent to the proximal stomach. It extends into the posterior mediastinum. The current appearance and findings on fluoroscopy examination earlier today are indicative of a leak at the anastomosis. The current surgical drain is not directly adjacent to the collection and based on the location I do not think that we could place a drain in an appropriate location percutaneously. 2. Small bilateral pleural effusions with associated atelectasis and/or consolidation in both lower lobes. Gonzales Ramsay MD Cardiovascular: Regular Lungs: Clear Abdomen: Other (midline incision with allie; ANDREW RIGHT: thin holley colored drainage; ANDREW LEFT: thin light colored drainage; abdomen mildly distended; tender to palpation; J tube in place without complications ) Narrative Exam Bilateral chest tubes removed Severe scrotal edema Moderate generalized edema A/P Problem List: (1) Primary adenocarcinoma of distal third of esophagus ICD Codes: C15.5 - Malignant neoplasm of lower third of esophagus Status: Acute (2) Atrial fibrillation with RVR ICD Codes: I48.91 - Unspecified atrial fibrillation Status: Acute (3) Acute hypoxemic respiratory failure ICD Codes: J96.01 - Acute respiratory failure with hypoxia Status: Acute (4) Gastric adenocarcinoma ICD Codes: C16.9 - Malignant neoplasm of stomach, unspecified Status: Acute Assessment and Plan 66 year old male POD16 laparoscopic gastrectomy and cholecystectomy with Botox injection; POD9 bilateral thoracostomy tube placement; open subtotal gastrectomy ; jejunostomy tube placement -NGT to LIWS -IVF -Tolerating tube feeds via J tube- 60cc/hr -Culture from ANDREW + for Saida --- Diflucan -Fevers; WBC now 9.0 -Continue ANDREW management -Bilateral chest tubes removed -Appreciate Principal Software Engineer consult Attending Statement The exam, history, and the medical decision-making described in the above note were completed with the assistance of the mid-level provider. I reviewed and agree with the findings presented. I attest that I had a [id number] encounter with the patient on the same day, and personally performed and documented my assessment and findings in the medical record. Abdominal exam: soft, non-distended, no rebound tenderness significant improvement overall, still very ill meseret DEL REAL, +Es Cooper Feb 02, 2017 16:22 Josh Ritchie MD Feb 07, 2017 14:53
[2017-02-02] MEDS: ENOXAPARIN SODIUM 30 MG/0.3 ML SYRINGE SQ SCH (16:42)
[2017-02-02] MEDS: PANTOPRAZOLE SODIUM 40 MG VIAL IV SCH (16:42)
[2017-02-02] MEDS: DEXTROSE 10% INJ 1,000 ML IV SCH (18:15)
[2017-02-03] VITALS (18 sets, daily range): BP systolic 131–194; BP diastolic 63–80; PULSE 62–86; RESP 14–30; TEMP 99.3–100; O2SAT 96–100
[2017-02-03] MEDS: INSULIN ASPART SUPPLEMENTAL SCALE SQ SCH ×7 (04:00→23:49)
[2017-02-03] MEDS: PIPERACIL-TAZO 4.5 GM PREMIX 100 ML IV SCH ×4 (05:38→20:32)
[2017-02-03] MEDS: fentaNYL DRIP 250 ML IV PRN ×2 (05:42→17:51)
[2017-02-03] MEDS: MIDAZOLAM 100 MG/100 ML INJ 100 ML IV PRN ×2 (05:43→20:33)
[2017-02-03] MEDS: DEXMEDETOMIDINE 200 MCG in NS 48 ML IV PRN ×3 (07:25→11:57)
[2017-02-03] MEDS: CHLORHEXIDINE 0.12% (ORAL KIT) 15 ML CUP MT SCH ×2 (08:00→19:28)
[2017-02-03] MEDS: SODIUM CHLORIDE 0.9% FLUSH 10 ML FLUSH IV FLUSH SCH ×3 (08:36→20:36)
[2017-02-03] MEDS: DIGOXIN 0.5 MG/2 ML VIAL IV PUSH SCH (08:49)
[2017-02-03] MEDS: VANCOMYCIN INJ 2,000 MG in SODIUM CHLORID 0.9% 500 ML INJ 500 ML IV SCH ×2 (08:50→21:55)
[2017-02-03] MEDS: INSULIN DETEMIR 100 UNITS/ML VIAL SQ SCH ×2 (08:50→20:32)
[2017-02-03] MEDS: FLUCONAZOLE 400 MG PREMIX BAG 200 ML IV SCH (11:09)
--- NOTE | 2017-02-03 11:52 | HHI.PR ---
Subjective Subjective Notes resting in bed, on CPAP, no problems per RN Objective Vitals/I&O Vital Signs Date Time Temp Pulse Resp B/P (MAP) Pulse Ox O2 Delivery O2 Flow Rate FiO2 02/03/17 10:00 73 02/03/17 09:36 96 40 02/03/17 08:00 99.3 16 157/70 (99) 02/01/17 08:07 Ventilator Labs Date/Time Source Procedure Growth Status 01/31/17 14:30 Blood Peripheral Aerobic Blood Culture - Preliminary NO GROWTH IN 3 DAYS Resulted 01/31/17 14:30 Blood Peripheral Anaerobic Blood Culture - Preliminary NO GROWTH IN 3 DAYS Resulted 01/31/17 12:20 Sputum Endotracheal Gram Stain - Final Complete 01/31/17 12:20 Sputum Endotracheal Sputum Culture - Final RARE GROWTH NORMAL RESPIRATORY DEMARCUS Complete 01/27/17 08:00 Urine Catheterized Urine Urine Culture - Final NO GROWTH IN 48 HOURS. Complete 01/27/17 04:55 Wound Abdomen Gram Stain - Final Complete 01/27/17 04:55 Wound Culture - Final Saida Albicans Complete Radiology Last Impressions Chest X-Ray 01/27/17 0600 Signed Impressions: Service Date/Time: Friday, January 27, 2017 04:22 - CONCLUSION: 1. Support apparatus in satisfactory position. Mild basilar airspace disease. No pneumothorax. Trace pleural fluid remains on the left. Jordan Lozano MD Lower Extremity Ultrasound 01/27/17 0000 Signed Impressions: Service Date/Time: Friday, January 27, 2017 12:49 - CONCLUSION: No DVT in either lower extremity. Elijah Funes MD Chest Ultrasound 01/24/17 0000 Signed Impressions: Service Date/Time: Tuesday, January 24, 2017 11:13 - CONCLUSION: 1. Large left pleural effusion. Jayson Das MD Chest CT 01/23/17 0000 Signed Impressions: Service Date/Time: Monday, January 23, 2017 18:54 - CONCLUSION: 1. Moderate-sized bilateral pleural effusions. Right pleural effusion has several small areas of loculation as above. 2. Bilateral lower lobe consolidation. 3. Somewhat mass like fullness in the right infrahilar region. A contrast- enhanced CT of the chest is recommended, preferably after resolution of pleural effusions and bibasilar consolidation. Gonzales Pierre MD Upper GI/Barium Swallow X-Ray 01/22/17 0000 Signed Impressions: Service Date/Time: Sunday, January 22, 2017 12:29 - CONCLUSION: 1. Findings suspicious for a small leak at the gastroesophageal junction with contrast pooling into an air fluid collection adjacent to the GE junction and distal esophagus. There was an end to side anastomosis performed so it is possible, but felt unlikely, that the collection represents a portion of the proximal stomach. 2. Findings were discussed with Dr. Ritchie. Gonzales Ramsay MD Abdomen CT 01/22/17 0000 Signed Impressions: Service Date/Time: Sunday, January 22, 2017 17:12 - CONCLUSION: 1. There is an abnormal air and fluid collection located to the right of the GE junction adjacent to the proximal stomach. It extends into the posterior mediastinum. The current appearance and findings on fluoroscopy examination earlier today are indicative of a leak at the anastomosis. The current surgical drain is not directly adjacent to the collection and based on the location I do not think that we could place a drain in an appropriate location percutaneously. 2. Small bilateral pleural effusions with associated atelectasis and/or consolidation in both lower lobes. Gonzales Ramsay MD Lungs: Clear Abdomen: Non-distended Narrative Exam abdomen is soft, drains draining cloudy fluid Wound Wound : Appearance: Clean & Dry Dressing: Dry A/P Problem List: (1) Primary adenocarcinoma of distal third of esophagus ICD Codes: C15.5 - Malignant neoplasm of lower third of esophagus Status: Acute (2) Atrial fibrillation with RVR ICD Codes: I48.91 - Unspecified atrial fibrillation Status: Acute (3) Acute hypoxemic respiratory failure ICD Codes: J96.01 - Acute respiratory failure with hypoxia Status: Acute (4) Gastric adenocarcinoma ICD Codes: C16.9 - Malignant neoplasm of stomach, unspecified Status: Acute Assessment and Plan s/p gastrectomy continue supportive care, tube feeding, drains Adam Canales MD Feb 03, 2017 11:52
[2017-02-03] MEDS: ENOXAPARIN SODIUM 30 MG/0.3 ML SYRINGE SQ SCH (16:33)
[2017-02-03] MEDS: PANTOPRAZOLE SODIUM 40 MG VIAL IV SCH (16:33)
--- NOTE | 2017-02-03 17:12 | HHI.CCPN ---
Subjective Remarks/Hospital Course 66 y/o man has developed respiratory failure following a laparoscopic partial gastrectomy performed 01/17. He was brought to the [facility] where I met him on his arrival. Intubated for hypoxemic failure and lines placed. After 2 liters NS patient making > 40 ml/hr urine. Arrived in atrial fibrillation with rate 160s, converted after fluid, analgesia, and lopressor 5 mg X 1.Loaded with antibiotics. Family is aware. 01/25: Completion gastric resection and resuscitation. Urine output marginal but perfusion good. Tapering vasopressors. 01/26: Off all vasopressors. Tmax 100.4. Currently 100.2. Tolerating TPN. White cell count elevated 27,000. Arousable and follows commands on the ventilator. Subjective 01/27: Tmax 101.5. Pancultured including blood 2 from peripheral access and sputum. Added vancomycin. Arousable doesn't follow commands. Cultures sent from around surgical site. 01/28: Remains sedated, orally intubated on mechanical ventilation. 01/29: Remains sedated, orally intubated on mechanical ventilation. Remains febrile. 01/30: Remains sedated, orally intubated on mechanical ventilation. 01/31: Remains sedated, orally intubated on mechanical ventilation. Off TPN since 01/30. J-tube feeds being advanced to goal. Still febrile. Lipscomb cultures ordered. 02/01: Remains sedated, orally intubated on mechanical ventilation. Failing C Pap trials. Still having fevers. WBCs down to 11,000. 02/02: Remains sedated, orally intubated on mechanical ventilation. Tolerating J -tube feeds. Still having temperature spikes. 02/03: Sedated, arousable, orally intubated on mechanical ventilation. Tolerating J-tube feeds. Continues to have fever. Failing C Pap trials. Objective Vital Signs Date Time Temp Pulse Resp B/P (MAP) Pulse Ox O2 Delivery O2 Flow Rate FiO2 02/03/17 16:15 99 60 02/03/17 14:00 82 02/03/17 12:00 99.7 30 146/66 (92) 02/01/17 08:07 Ventilator Intake and Output 02/03/17 02/03/17 02/04/17 08:00 16:00 00:00 Intake Total 1764 ml Output Total 1645 ml Balance 119 ml Result Diagram: 02/02/17 0412 02/02/17 0412 Imaging Last 48 hours Impressions Chest X-Ray 02/01/17 0600 Signed Impressions: Service Date/Time: January 05:12 - CONCLUSION: 1. Support apparatus in good position. Bilateral chest tubes without pneumothorax. Basal airspace disease. Jordan Lozano MD Chest X-Ray 02/01/17 0000 Signed Impressions: Service Date/Time: January 21:16 - CONCLUSION: 1. No pneumothorax or significant change following right chest tube removal. There is stable consolidation versus atelectasis in the right lower lung zone. 2. Left chest tube is present and no pneumothorax is visualized. There is stable left basilar opacity. Gonzales Ramsay MD Last Impressions Chest X-Ray 01/27/17 0600 Signed Impressions: Service Date/Time: Friday, January 27, 2017 04:22 - CONCLUSION: 1. Support apparatus in satisfactory position. Mild basilar airspace disease. No pneumothorax. Trace pleural fluid remains on the left. Jordan Lozano MD Chest Ultrasound 01/24/17 0000 Signed Impressions: Service Date/Time: Tuesday, January 24, 2017 11:13 - CONCLUSION: 1. Large left pleural effusion. Jayson Das MD Chest CT 01/23/17 0000 Signed Impressions: Service Date/Time: Monday, January 23, 2017 18:54 - CONCLUSION: 1. Moderate-sized bilateral pleural effusions. Right pleural effusion has several small areas of loculation as above. 2. Bilateral lower lobe consolidation. 3. Somewhat mass like fullness in the right infrahilar region. A contrast- enhanced CT of the chest is recommended, preferably after resolution of pleural effusions and bibasilar consolidation. Gonzales Pierre MD Upper GI/Barium Swallow X-Ray 01/22/17 0000 Signed Impressions: Service Date/Time: Sunday, January 22, 2017 12:29 - CONCLUSION: 1. Findings suspicious for a small leak at the gastroesophageal junction with contrast pooling into an air fluid collection adjacent to the GE junction and distal esophagus. There was an end to side anastomosis performed so it is possible, but felt unlikely, that the collection represents a portion of the proximal stomach. 2. Findings were discussed with Dr. Ritchie. Gonzales Ramsay MD Abdomen CT 01/22/17 0000 Signed Impressions: Service Date/Time: Sunday, January 22, 2017 17:12 - CONCLUSION: 1. There is an abnormal air and fluid collection located to the right of the GE junction adjacent to the proximal stomach. It extends into the posterior mediastinum. The current appearance and findings on fluoroscopy examination earlier today are indicative of a leak at the anastomosis. The current surgical drain is not directly adjacent to the collection and based on the location I do not think that we could place a drain in an appropriate location percutaneously. 2. Small bilateral pleural effusions with associated atelectasis and/or consolidation in both lower lobes. Gonzales Ramsay MD Objective Remarks Gen: 66-year-old male, critically ill currently orotracheally intubated with nasogastric tube right nares Head: NL. Atraumatic. Neck: No JVD Lungs: Orally intubated on mechanical ventilation. Decreased breath sounds both bases, scattered rhonchi bilaterally. Heart: NL S1S2, no murmur appreciated Abdomen: Mildly distended, soft. Post-surgical. Isidro drain on left/right. J- tube on left. Extremities: Warm, dry. We'll perfused Neuro: Sedated. Moves 4 limbs spontaneously. YESENIA. Line: Central Venous Catheter A/P Problem List: (1) Acute hypoxemic respiratory failure ICD Code: J96.01 - Acute respiratory failure with hypoxia Status: Acute (2) Primary adenocarcinoma of distal third of esophagus ICD Code: C15.5 - Malignant neoplasm of lower third of esophagus Status: Acute Assessment and Plan Neuro/Psych: Chronic Benzodiazepine use Chronic muscle relaxant use Currently on propofol/Versed/fentanyl drip for sedation/analgesia while intubated. Titrate off propofol if tolerated. Add Precedex to facilitate C Pap trials. RASS -2 Daily sedation vacation Patient is on alprazolam 0.25 mg twice a day and diazepam 5 mill grams twice a day when necessary for anxiety at home. Patient is on Flexeril as needed muscle relaxant at home. CV: A. fib with RVR currently normal sinus rhythm History of hypertension History of dyslipidemia Holding home medications of amlodipine 5 mg twice a day and losartan 50 mg twice a day in light of borderline blood pressures Stopped IV digoxin on 02/03. Lopressor as needed for A. fib with RVR. TPN stopped 01/30. J-tube feeds advanced to goal. Not requiring vasopressors and/or anti-hypertensives at the current time. Start Lasix 40 mg IV daily on 02/03 to mobilize fluid. Resp: Acute hypercapnic respiratory failure Bilateral chest of secondary pleural effusions [facility] 14//06/15/34 Ventilator bundle Scheduled due nebs every 6 hours with albuterol nebulizers every 2 hours. Dyspnea Failing C Pap trials Right pigtail catheter removed on 02/01, left pigtail catheter possibly to be removed by surgery 02/02 GI: 01/19 -cholecystectomy, proximal gastrectomy with GE junction anastomosis and Botox injection by Dr. Ritchie 01/24 - bilateral chest tubes/open subtotal gastrectomy and jejunostomy placement Gastroesophageal reflux disease Holding lansoprazole 30 mg by mouth daily. Currently on pantoprazole 40 mg IV daily Isidro tubes left/right. J-tube feeds at 40 cc, advance to goal of 50 cc an hour as tolerated : Soto catheter for accurate I's and O's in a critically ill patient Endo: Sliding-scale insulin with Novolog every 4 hours/medium. Levemir from 10 units twice a day on 02/01 in view of lower blood glucose levels. Renal: Strict intake output, monitor and replete electro lites, follow BUN/creatinine. Heme: Leukocytosis Normocytic anemia Monitor CBC daily. Follow trends ID: Currently on Zosyn, added vancomycin 01/27. Added fluconazole 400mg daily on for mae from ANDREW drain. Stopped levaquin 02/01 All blood cultures negative so far.. Wound culture with mae. Lipscomb cultures ordered on 01/31 as patient still spiking fevers. left side isidro drain output appears pretty cloudy. May need to repeat CT abdomen pelvis by next week if continues to spike fevers. Consider ID consult for antibiotic management in view of ongoing fevers FEN: Replace electrolytes as clinically indicated MSK: Range of motion Access - Right subclavian CVL 01/24, right upper extremity PICC placed 01/23 ( discontinue 02/01). Discontinued right radial arterial line 01/27 Prophylaxis - GI - pantoprazole - DVT - SCD/pharmacological prophylaxis when okay with surgery Updated patient's at bedside in detail and she voiced understanding and was agreeable with plan of care on 02/01. Remains critically ill on mechanical ventilation. Time spent on critical care excluding procedures 40 minutes Luc Pate MD Feb 03, 2017 17:12
[2017-02-03] MEDS: hydrALAZINE HCL 20 MG/ML VIAL IV PRN (20:33)
[2017-02-04] VITALS (14 sets, daily range): BP systolic 134–165; BP diastolic 55–74; PULSE 76–100; RESP 15–28; TEMP 99–100.2; O2SAT 92–100
--- NOTE | 2017-02-04 03:21 | RADRPT ---
EXAM DATE/TIME: 02/04/2017 02:24 [facility] COMPARISON: CHEST SINGLE AP, February 01, 2017, 21:16. INDICATIONS : Shortness of breath. MEDICAL HISTORY : Hypertension. Carcinoma, esophageal. Carcinoma, gastric SURGICAL HISTORY : Gastrectomy ENCOUNTER: Subsequent ACUITY: 2 weeks PAIN SCORE: Non-responsive. LOCATION: Bilateral chest FINDINGS: A single view of the chest demonstrates the endotracheal tube, nasogastric tube and right subclavian central line all in good position. Persistent fluid in the minor fissure on the right. Bilateral lowe r lobe atelectasis.. The cardiomediastinal contours are unremarkable. Osseous structures are intact . CONCLUSION: Persistent bibasilar atelectasis with the tubes and catheters in good position. Darian Saucedo MD on February 04, 2017 at 3:18 Board Certified Radiologist. This report was verified electronically.
[2017-02-04] MEDS: INSULIN ASPART SUPPLEMENTAL SCALE SQ SCH ×6 (04:00→23:51)
[2017-02-04] MEDS: PIPERACIL-TAZO 4.5 GM PREMIX 100 ML IV SCH ×4 (04:50→21:41)
[2017-02-04] MEDS: fentaNYL DRIP 250 ML IV PRN (04:56)
[2017-02-04] MEDS: hydrALAZINE HCL 20 MG/ML VIAL IV PRN ×2 (05:57→16:21)
[2017-02-04] MEDS: SODIUM CHLORIDE 0.9% FLUSH 10 ML FLUSH IV FLUSH SCH ×3 (09:00→19:42)
--- NOTE | 2017-02-04 09:13 | HHI.CCPN ---
Subjective Remarks/Hospital Course 66 y/o man has developed respiratory failure following a laparoscopic partial gastrectomy performed 01/17. He was brought to the [facility] where I met him on his arrival. Intubated for hypoxemic failure and lines placed. After 2 liters NS patient making > 40 ml/hr urine. Arrived in atrial fibrillation with rate 160s, converted after fluid, analgesia, and lopressor 5 mg X 1.Loaded with antibiotics. Family is aware. 01/25: Completion gastric resection and resuscitation. Urine output marginal but perfusion good. Tapering vasopressors. 01/26: Off all vasopressors. Tmax 100.4. Currently 100.2. Tolerating TPN. White cell count elevated 27,000. Arousable and follows commands on the ventilator. Subjective 01/27: Tmax 101.5. Pancultured including blood 2 from peripheral access and sputum. Added vancomycin. Arousable doesn't follow commands. Cultures sent from around surgical site. 01/28: Remains sedated, orally intubated on mechanical ventilation. 01/29: Remains sedated, orally intubated on mechanical ventilation. Remains febrile. 01/30: Remains sedated, orally intubated on mechanical ventilation. 01/31: Remains sedated, orally intubated on mechanical ventilation. Off TPN since 01/30. J-tube feeds being advanced to goal. Still febrile. Lipscomb cultures ordered. 02/01: Remains sedated, orally intubated on mechanical ventilation. Failing C Pap trials. Still having fevers. WBCs down to 11,000. 02/02: Remains sedated, orally intubated on mechanical ventilation. Tolerating J -tube feeds. Still having temperature spikes. 02/03: Sedated, arousable, orally intubated on mechanical ventilation. Tolerating J-tube feeds. Continues to have fever. Failing C Pap trials. 02/04: Sedated, arousable, orally intubated on mechanical ventilation. Tolerating J-tube feeds. Continues to have intermittent fevers. Failing C Pap trials. A.m. labs pending Objective Vital Signs Date Time Temp Pulse Resp B/P (MAP) Pulse Ox O2 Delivery O2 Flow Rate FiO2 02/04/17 04:34 98 50 02/04/17 04:00 99.3 76 15 144/66 (92) 02/01/17 08:07 Ventilator Intake and Output 02/04/17 02/04/1702/05/17 08:00 16:00 00:00 Intake Total 1483 ml Output Total 855 ml Balance 628 ml Result Diagram: 02/02/17 0412 02/02/17 0412 Imaging Last 48 hours Impressions Chest X-Ray 02/01/17 0600 Signed Impressions: Service Date/Time: January 05:12 - CONCLUSION: 1. Support apparatus in good position. Bilateral chest tubes without pneumothorax. Basal airspace disease. Jordan Lozano MD Chest X-Ray 02/01/17 0000 Signed Impressions: Service Date/Time: January 21:16 - CONCLUSION: 1. No pneumothorax or significant change following right chest tube removal. There is stable consolidation versus atelectasis in the right lower lung zone. 2. Left chest tube is present and no pneumothorax is visualized. There is stable left basilar opacity. Gonzales Ramsay MD Last Impressions Chest X-Ray 01/27/17 0600 Signed Impressions: Service Date/Time: Friday, January 27, 2017 04:22 - CONCLUSION: 1. Support apparatus in satisfactory position. Mild basilar airspace disease. No pneumothorax. Trace pleural fluid remains on the left. Jordan Lozano MD Chest Ultrasound 01/24/17 0000 Signed Impressions: Service Date/Time: Tuesday, January 24, 2017 11:13 - CONCLUSION: 1. Large left pleural effusion. Jayson Das MD Chest CT 01/23/17 0000 Signed Impressions: Service Date/Time: Monday, January 23, 2017 18:54 - CONCLUSION: 1. Moderate-sized bilateral pleural effusions. Right pleural effusion has several small areas of loculation as above. 2. Bilateral lower lobe consolidation. 3. Somewhat mass like fullness in the right infrahilar region. A contrast- enhanced CT of the chest is recommended, preferably after resolution of pleural effusions and bibasilar consolidation. Gonzales Pierre MD Upper GI/Barium Swallow X-Ray 01/22/17 0000 Signed Impressions: Service Date/Time: Sunday, January 22, 2017 12:29 - CONCLUSION: 1. Findings suspicious for a small leak at the gastroesophageal junction with contrast pooling into an air fluid collection adjacent to the GE junction and distal esophagus. There was an end to side anastomosis performed so it is possible, but felt unlikely, that the collection represents a portion of the proximal stomach. 2. Findings were discussed with Dr. Ritchie. Gonzales Ramsay MD Abdomen CT 01/22/17 0000 Signed Impressions: Service Date/Time: Sunday, January 22, 2017 17:12 - CONCLUSION: 1. There is an abnormal air and fluid collection located to the right of the GE junction adjacent to the proximal stomach. It extends into the posterior mediastinum. The current appearance and findings on fluoroscopy examination earlier today are indicative of a leak at the anastomosis. The current surgical drain is not directly adjacent to the collection and based on the location I do not think that we could place a drain in an appropriate location percutaneously. 2. Small bilateral pleural effusions with associated atelectasis and/or consolidation in both lower lobes. Gonzales Ramsay MD Objective Remarks Gen: 66-year-old male, critically ill currently orotracheally intubated with nasogastric tube right nares Head: NL. Atraumatic. Neck: No JVD Lungs: Orally intubated on mechanical ventilation. Decreased breath sounds both bases, scattered rhonchi bilaterally. Heart: NL S1S2, no murmur appreciated Abdomen: Mildly distended, soft. Post-surgical. Isidro drain on left/right. J- tube on left. Extremities: Warm, dry. We'll perfused Neuro: Sedated. Moves 4 limbs spontaneously. YESENIA. Line: Central Venous Catheter A/P Problem List: (1) Acute hypoxemic respiratory failure ICD Code: J96.01 - Acute respiratory failure with hypoxia Status: Acute (2) Primary adenocarcinoma of distal third of esophagus ICD Code: C15.5 - Malignant neoplasm of lower third of esophagus Status: Acute Assessment and Plan Neuro/Psych: Chronic Benzodiazepine use Chronic muscle relaxant use Currently on propofol/Versed/fentanyl drip for sedation/analgesia while intubated. Titrate off propofol if tolerated. Precedex to facilitate C Pap trials. RASS -2 Daily sedation vacation Patient is on alprazolam 0.25 mg twice a day and diazepam 5 mill grams twice a day when necessary for anxiety at home. Patient is on Flexeril as needed muscle relaxant at home. CV: A. fib with RVR currently normal sinus rhythm History of hypertension History of dyslipidemia Holding home medications of amlodipine 5 mg twice a day and losartan 50 mg twice a day in light of borderline blood pressures Stopped IV digoxin on 02/03. Lopressor as needed for A. fib with RVR. TPN stopped 01/30. J-tube feeds advanced to goal. Not requiring vasopressors and/or anti-hypertensives at the current time. Start Lasix 40 mg IV daily on 02/03 to mobilize fluid. Resp: Acute hypercapnic respiratory failure Bilateral chest of secondary pleural effusions PRVC 14/550/06/15/34 Ventilator bundle Scheduled due nebs every 6 hours with albuterol nebulizers every 2 hours. Dyspnea Failing C Pap trials Right pigtail catheter removed on 02/01, left pigtail catheter removed by surgery 02/02 GI: 01/19 -cholecystectomy, proximal gastrectomy with GE junction anastomosis and Botox injection by Dr. Ritchie 01/24 - bilateral chest tubes/open subtotal gastrectomy and jejunostomy placement Gastroesophageal reflux disease Holding lansoprazole 30 mg by mouth daily. Currently on pantoprazole 40 mg IV daily Isidro tubes left/right. J-tube feeds at 50 cc an hour as tolerated : Soto catheter for accurate I's and O's in a critically ill patient Endo: Sliding-scale insulin with Novolog every 4 hours/medium. Levemir from 10 units twice a day on 02/01 in view of lower blood glucose levels. Renal: Strict intake output, monitor and replete electro lites, follow BUN/creatinine. Heme: Leukocytosis Normocytic anemia Monitor CBC daily. Follow trends ID: Currently on Zosyn, added vancomycin 01/27. Added fluconazole 400mg daily on for mae from [facility] drain. Stopped levaquin 02/01 All blood cultures negative so far.. Wound culture with mae. Lipscomb cultures sent on 01/31, 06/12 blood culture with GPC ? contaminant. as patient still spiking fevers. left side isidro drain output appears pretty cloudy. May need to repeat CT abdomen pelvis by next week if continues to spike fevers. Requested ID consult for antibiotic management in view of ongoing fevers with probable fungal peritonitis FEN: Replace electrolytes as clinically indicated MSK: Range of motion Access - Right subclavian CVL 01/24, right upper extremity PICC placed 01/23 ( discontinue 02/01). Discontinued right radial arterial line 01/27 Prophylaxis - GI - pantoprazole - DVT - SCD/pharmacological prophylaxis when okay with surgery Updated patient's at bedside in detail and she voiced understanding and was agreeable with plan of care on 02/01. Remains critically ill on mechanical ventilation. Time spent on critical care excluding procedures 40 minutes Luc Pate MD Feb 04, 2017 09:13
[2017-02-04] MEDS: CHLORHEXIDINE 0.12% (ORAL KIT) 15 ML CUP MT SCH ×2 (09:16→19:26)
[2017-02-04] MEDS: FUROSEMIDE 40 MG/4 ML VIAL IV PUSH SCH (09:17)
[2017-02-04] MEDS: DEXMEDETOMIDINE 200 MCG in NS 48 ML IV PRN ×5 (09:21→21:57)
[2017-02-04] MEDS: INSULIN DETEMIR 100 UNITS/ML VIAL SQ SCH ×2 (09:25→20:56)
[2017-02-04 09:50] LABS: AUTOMATED NEUTROPHIL # 7.7 TH/MM3 (1.8-7.7); BASOPHIL % 0.3 % (0.0-2.0); EOSINOPHIL # 0.1 TH/MM3 (0-0.4); EOSINOPHIL % 1.2 % (0.0-4.0); HEMATOCRIT 27.1 % (39.0-51.0); HEMO FLAGS DIFF FINAL; LYMPH % 12.3 % (9.0-44.0); LYMPHOCYTE # 1.2 TH/MM3 (1.0-4.8); MEAN CELL VOLUME 94.1 FL (80.0-100.0); MEAN CORPUSCULAR HEMOGLOBIN 32.3 PG (27.0-34.0); MEAN CORPUSCULAR HGB CONC 34.3 % (32.0-36.0); MONO % 8.8 % (0.0-8.0); NEUT % 77.4 % (16.0-70.0); PLATELET COUNT 468 TH/MM3 (150-450); RED BLOOD COUNT 2.88 MIL/MM3 (4.50-5.90); RED CELL DISTRIBUTION WIDTH 13.4 % (11.6-17.2)
[2017-02-04] MEDS ORDERED: LABETALOL HCL 100 MG/20 ML VIAL ONE (09:53)
[2017-02-04] MEDS: LABETALOL HCL 100 MG/20 ML VIAL IV PUSH PRN ×2 (09:55→13:11)
[2017-02-04 10:21] LABS: ALT (GPT) 30 U/L (12-78); ANION GAP 5 MEQ/L (5-15); AST (GOT) 36 U/L (15-37); BICARBONATE 32.1 MEQ/L (21.0-32.0); BLOOD UREA NITROGEN 12 MG/DL (7-18); CHLORIDE 106 MEQ/L (98-107); GLOMERULAR FILTRATION RATE 164 ML/MIN (>89); POTASSIUM 3.8 MEQ/L (3.5-5.1); SODIUM (NA) 143 MEQ/L (136-145)
[2017-02-04 10:23] LABS: ALKALINE PHOSPHATASE 165 U/L (45-117); TOTAL BILIRUBIN ADULT 0.2 MG/DL (0.2-1.0)
[2017-02-04] MEDS: VANCOMYCIN INJ 2,000 MG in SODIUM CHLORID 0.9% 500 ML INJ 500 ML IV SCH ×2 (10:41→22:23)
[2017-02-04] MEDS: FLUCONAZOLE 400 MG PREMIX BAG 200 ML IV SCH (13:10)
[2017-02-04] MEDS: PANTOPRAZOLE SODIUM 40 MG VIAL IV SCH (16:21)
[2017-02-04] MEDS: ENOXAPARIN SODIUM 30 MG/0.3 ML SYRINGE SQ SCH (16:21)
[2017-02-04] MEDS ORDERED: FUROSEMIDE 40 MG/4 ML VIAL IV ONE (16:45)
--- NOTE | 2017-02-04 16:51 | PD.ID.CON ---
History of Present Illness Consult Requested By Primary Care Physician Tai Bhatt MD Diagnoses: Past Family Social History Allergies: Coded Allergies: amlodipine (Unverified Allergy, Severe, MUSCLE PAIN, 01/23/17) atorvastatin (Unverified Allergy, Severe, MUSCLE PAIN, 01/23/17) pravastatin (Unverified Allergy, Severe, MUSCLE PAIN, 01/23/17) simvastatin (Unverified Allergy, Severe, MUSCLE PAIN, 01/23/17) Physical Exam Vital Signs Vital Signs Date Time Temp Pulse Resp B/P (MAP) Pulse Ox O2 Delivery O2 Flow Rate FiO2 02/04/17 14:00 86 02/04/17 13:16 93 Venturi Mask 40 02/04/17 13:00 92 Nasal Cannula 4 02/04/17 12:00 86 02/04/17 12:00 99.3 86 20 163/55 (91) 97 02/04/17 12:00 45 02/04/17 11:35 97 45 02/04/17 10:00 82 02/04/17 09:30 99 45 02/04/17 09:30 45 02/04/17 08:00 50 02/04/17 08:00 98 02/04/17 08:00 99.0 100 24 134/60 (84) 100 02/04/17 04:34 98 50 02/04/17 04:00 60 02/04/17 04:00 99.3 76 15 144/66 (92) 97 02/04/17 00:00 60 02/04/17 00:00 100.2 83 15 137/62 (87) 98 02/03/17 23:56 98 55 02/03/17 21:29 98 60 02/03/17 20:00 100.0 85 17 194/80 (118) 100 02/03/17 20:00 60 02/03/17 18:00 75 Physical Exam GENERAL: This is a well-nourished, well-developed patient, in no apparent distress. SKIN: No rashes, ecchymoses or lesions. Cool and dry. HEAD: Atraumatic. Normocephalic. No temporal or scalp tenderness. EYES: Pupils equal round and reactive. Extraocular motions intact. No scleral icterus. No injection or drainage. ENT: Nose without bleeding, purulent drainage or septal hematoma. Throat without erythema, tonsillar hypertrophy or exudate. Uvula midline. Airway patent. NECK: Trachea midline. No JVD or lymphadenopathy. Supple, nontender, no meningeal signs. CARDIOVASCULAR: Regular rate and rhythm without murmurs, gallops, or rubs. RESPIRATORY: Clear to auscultation. Breath sounds equal bilaterally. No wheezes , rales, or rhonchi. GASTROINTESTINAL: Abdomen soft, non-tender, nondistended. No hepato-splenomegaly , or palpable masses. No guarding. MUSCULOSKELETAL: Extremities without clubbing, cyanosis, or edema. No joint tenderness, effusion, or edema noted. No calf tenderness. Negative Homans sign bilaterally. NEUROLOGICAL: Awake and alert. Cranial nerves II through XII intact. Motor and sensory grossly within normal limits. Five out of 5 muscle strength in all muscle groups. Normal speech. Laboratory Laboratory Tests Test 02/04/17 09:30 02/04/17 14:10 White Blood Count 10.0 Red Blood Count 2.88 Hemoglobin 9.3 Hematocrit 27.1 Mean Corpuscular Volume 94.1 Mean Corpuscular Hemoglobin 32.3 Mean Corpuscular Hemoglobin Concent 34.3 Red Cell Distribution Width 13.4 Platelet Count 468 Mean Platelet Volume 7.8 Neutrophils (%) (Auto) 77.4 Lymphocytes (%) (Auto) 12.3 Monocytes (%) (Auto) 8.8 Eosinophils (%) (Auto) 1.2 Basophils (%) (Auto) 0.3 Neutrophils # (Auto) 7.7 Lymphocytes # (Auto) 1.2 Monocytes # (Auto) 0.9 Eosinophils # (Auto) 0.1 Basophils # (Auto) 0.0 CBC Comment DIFF FINAL Differential Comment Blood Urea Nitrogen 12 Creatinine 0.51 Random Glucose 123 Total Protein 6.5 Albumin 1.1 Calcium Level 7.5 Alkaline Phosphatase 165 Aspartate Amino Transf (AST/SGOT) 36 Alanine Aminotransferase (ALT/SGPT) 30 Total Bilirubin 0.2 Sodium Level 143 Potassium Level 3.8 Chloride Level 106 Carbon Dioxide Level 32.1 Anion Gap 5 Estimat Glomerular Filtration Rate 164 Date/Time Source Procedure Growth Status 01/31/17 14:30 Blood Peripheral Aerobic Blood Culture - Preliminary NO GROWTH IN 4 DAYS Resulted 01/31/17 14:30 Blood Peripheral Anaerobic Blood Culture - Preliminary NO GROWTH IN 4 DAYS Resulted 01/31/17 12:20 Sputum Endotracheal Gram Stain - Final Complete 01/31/17 12:20 Sputum Endotracheal Sputum Culture - Final RARE GROWTH NORMAL RESPIRATORY DEMARCUS Complete 01/27/17 08:00 Urine Catheterized Urine Urine Culture - Final NO GROWTH IN 48 HOURS. Complete 01/27/17 04:55 Wound Abdomen Gram Stain - Final Complete 01/27/17 04:55 Wound Culture - Final Saida Albicans Complete Result Diagram: 02/04/17 0930 02/04/17 0930 Kaia Pate MD Feb 04, 2017 16:51
[2017-02-04 17:26] LABS: C. DIFF EPI 027 PRESUMPTIVE NEGATIVE (NEGATIVE)
[2017-02-04] MEDS ORDERED: DIATRIZOATE MEGLUM/DIATRIZOATE SOD 9 ML CUP PO ONE (17:30)
--- NOTE | 2017-02-04 17:39 | HHI.PR ---
Subjective Subjective Notes extubated Objective Vitals/I&O Vital Signs Date Time Temp Pulse Resp B/P (MAP) Pulse Ox O2 Delivery O2 Flow Rate FiO2 02/04/17 14:00 86 02/04/17 13:16 93 Venturi Mask 40 02/04/17 13:00 4 02/04/17 12:00 99.3 20 163/55 (91) Labs Laboratory Tests Test 02/04/17 09:30 02/04/17 14:10 White Blood Count 10.0 Red Blood Count 2.88 Hemoglobin 9.3 Hematocrit 27.1 Mean Corpuscular Volume 94.1 Mean Corpuscular Hemoglobin 32.3 Mean Corpuscular Hemoglobin Concent 34.3 Red Cell Distribution Width 13.4 Platelet Count 468 Mean Platelet Volume 7.8 Neutrophils (%) (Auto) 77.4 Lymphocytes (%) (Auto) 12.3 Monocytes (%) (Auto) 8.8 Eosinophils (%) (Auto) 1.2 Basophils (%) (Auto) 0.3 Neutrophils # (Auto) 7.7 Lymphocytes # (Auto) 1.2 Monocytes # (Auto) 0.9 Eosinophils # (Auto) 0.1 Basophils # (Auto) 0.0 CBC Comment DIFF FINAL Differential Comment Blood Urea Nitrogen 12 Creatinine 0.51 Random Glucose 123 Total Protein 6.5 Albumin 1.1 Calcium Level 7.5 Alkaline Phosphatase 165 Aspartate Amino Transf (AST/SGOT) 36 Alanine Aminotransferase (ALT/SGPT) 30 Total Bilirubin 0.2 Sodium Level 143 Potassium Level 3.8 Chloride Level 106 Carbon Dioxide Level 32.1 Anion Gap 5 Estimat Glomerular Filtration Rate 164 Stool C. difficile Toxin (PCR) NEGATIVE Stl C. difficile Toxin Epiderm 027 PRESUMPTIVE NEGATIVE Date/Time Source Procedure Growth Status 01/31/17 14:30 Blood Peripheral Aerobic Blood Culture - Preliminary NO GROWTH IN 4 DAYS Resulted 01/31/17 14:30 Blood Peripheral Anaerobic Blood Culture - Preliminary NO GROWTH IN 4 DAYS Resulted 01/31/17 12:20 Sputum Endotracheal Gram Stain - Final Complete 01/31/17 12:20 Sputum Endotracheal Sputum Culture - Final RARE GROWTH NORMAL RESPIRATORY DEMARCUS Complete 01/27/17 08:00 Urine Catheterized Urine Urine Culture - Final NO GROWTH IN 48 HOURS. Complete 02/04/17 17:00 Wound Abdomen Gram Stain Pending Received 02/04/17 17:00 Wound Abdomen Wound Culture Pending Received Radiology Last Impressions Chest X-Ray 01/27/17 0600 Signed Impressions: Service Date/Time: Friday, January 27, 2017 04:22 - CONCLUSION: 1. Support apparatus in satisfactory position. Mild basilar airspace disease. No pneumothorax. Trace pleural fluid remains on the left. Jordan Lozano MD Lower Extremity Ultrasound 01/27/17 0000 Signed Impressions: Service Date/Time: Friday, January 27, 2017 12:49 - CONCLUSION: No DVT in either lower extremity. Elijah Funes MD Chest Ultrasound 01/24/17 0000 Signed Impressions: Service Date/Time: Tuesday, January 24, 2017 11:13 - CONCLUSION: 1. Large left pleural effusion. Jayson Das MD Chest CT 01/23/17 0000 Signed Impressions: Service Date/Time: Monday, January 23, 2017 18:54 - CONCLUSION: 1. Moderate-sized bilateral pleural effusions. Right pleural effusion has several small areas of loculation as above. 2. Bilateral lower lobe consolidation. 3. Somewhat mass like fullness in the right infrahilar region. A contrast- enhanced CT of the chest is recommended, preferably after resolution of pleural effusions and bibasilar consolidation. Gonzales Pierre MD Upper GI/Barium Swallow X-Ray 01/22/17 0000 Signed Impressions: Service Date/Time: Sunday, January 22, 2017 12:29 - CONCLUSION: 1. Findings suspicious for a small leak at the gastroesophageal junction with contrast pooling into an air fluid collection adjacent to the GE junction and distal esophagus. There was an end to side anastomosis performed so it is possible, but felt unlikely, that the collection represents a portion of the proximal stomach. 2. Findings were discussed with Dr. Ritchie. Gonzales Ramsay MD Abdomen CT 01/22/17 0000 Signed Impressions: Service Date/Time: Sunday, January 22, 2017 17:12 - CONCLUSION: 1. There is an abnormal air and fluid collection located to the right of the GE junction adjacent to the proximal stomach. It extends into the posterior mediastinum. The current appearance and findings on fluoroscopy examination earlier today are indicative of a leak at the anastomosis. The current surgical drain is not directly adjacent to the collection and based on the location I do not think that we could place a drain in an appropriate location percutaneously. 2. Small bilateral pleural effusions with associated atelectasis and/or consolidation in both lower lobes. Gonzales Ramsay MD Cardiovascular: Regular Lungs: Upper airway course sound Abdomen: Non-distended, Non-tender A/P Problem List: (1) Primary adenocarcinoma of distal third of esophagus ICD Codes: C15.5 - Malignant neoplasm of lower third of esophagus Status: Acute (2) Atrial fibrillation with RVR ICD Codes: I48.91 - Unspecified atrial fibrillation Status: Acute (3) Acute hypoxemic respiratory failure ICD Codes: J96.01 - Acute respiratory failure with hypoxia Status: Acute (4) Gastric adenocarcinoma ICD Codes: C16.9 - Malignant neoplasm of stomach, unspecified Status: Acute Assessment and Plan 66 year old male POD18 laparoscopic gastrectomy and cholecystectomy with Botox injection; POD11 bilateral thoracostomy tube placement; open subtotal gastrectomy; jejunostomy tube placement -NGT to LIWS -IVF -Tolerating tube feeds via J tube- 60cc/hr, held for extubation -Culture from [facility]REW + for Saida --- Diflucan, ID following, wants to check CT scan -Continue ANDREW management to bulb suction -Bilateral chest tubes removed -Appreciate [employer] Worker consult Josh Ritchie MD Feb 04, 2017 17:39
--- NOTE | 2017-02-04 20:19 | PD.ID.CON ---
History of Present Illness Service ID Consult Requested By Dr.Nemani KELVIN YANES Reason for Consult Evaluation and management of sepsis in a postop patient Primary Care Physician Tai Bhatt MD Diagnoses: History of Present Illness Mr. 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 He was staged at a T1a,Nx based on EUS, CT thorax/Abd/pelvis and PET scan. Pt follows with Dr. Nickolas Luna for Oncology. He was admitted to [facility] [place] on 01/17/17 for Laparoscopic gastrectomy and cholecystectomy with Botox injection with Dr. Ritchie. Patient was later being followed by hospitalist team and postoperatively he was hypoxic in the low 80s and due to ongoing concern for worsening infection patient was eventually taken to the OR on January 24, 2017. He underwent bilateral chest tube placement, also underwent open subtotal gastrectomy(70% of the stomach was removed per OR notes). Intraoperatively there was an anastomotic leak as well as mild adhesions and a small pocket of infection noted. 2 ANDREW drains were left in place and patient underwent revision of the gastroesophageal anastomosis. Patient underwent placement of a jejunostomy in the NG tube. After this he seemed to be doing okay but on January 27 he started spiking temperatures of 101 with a WBC count of 27.9. On January 31 patient again spiked another temperature on 101 while on IV antibiotics and his WBC increased to 18.1 he was pancultured on January 27 and again underwent further cultures testing on January 31. Postoperatively it appears that patient has been intubated in the ICU. He got extubated only today on February 04, 2017. He has a Soto that was placed on January 24, 2017. He has a triple lumen catheter which was placed on January 31, 2017. He additionally had a PICC line was placed on January 23 which has now been discontinued. At the time of my evaluation patient is in ISC extubated a few hours back and seems to be doing fairly okay. He often gets a little agitated and is mumbling to himself. He has fairly okay urine output. He has diarrhea and C. difficile test has been sent. I examined the wound with Dr. Ritchie and it appears that the bottom few stitches appear erythematous and one of them had very minimal specks of discharge. Dr. Ritchie removed these sutures and drained the minimal purulent material and this was sent for cultures. Staphylococcus Warneri was identified from one of the 4 cultures. Patient is currently on vancomycin repeat cultures were ordered by me today. Patient has a ANDREW drain which has grayish white drainage noted large amounts. Reportedly the fluid was initially clear and now has turned the grayish white color. Infectious disease is consulted for evaluation and management of sepsis and a postop patient. 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 HTN GERD Hyperlipidemia Osteoarthritis Past Surgical History Appendectomy Cataract surgery Elbow surgery Knee surgery Reported Medications Reported Meds & Active Scripts Active Reported Zofran (Ondansetron HCl) 4 Mg Tab 8 Mg PO Q12HR PRN Diazepam 5 Mg Tab 5 Mg PO HS PRN Alprazolam 0.25 Mg Tab 0.25 Mg PO BID Zolpidem (Zolpidem Tartrate) 5 Mg Tab 5 Mg PO HS PRN Zovirax (Acyclovir) 800 Mg Tab 800 Mg PO BID PRN Flexeril (Cyclobenzaprine HCl) 10 Mg Tab 10 Mg PO TID PRN Hydrocodone-Acetaminophen 7.5-325 mg Tab 1 Tab PO Q4H PRN Aspirin 81 (Aspirin) 81 Mg Tabdr 81 Mg PO DAILY Hydrochlorothiazide 25 Mg Tab 25 Mg PO DAILY Zetia (Ezetimibe) 10 Mg Tab 10 Mg PO HS Losartan (Losartan Potassium) 50 Mg Tab 50 Mg PO BID Prevacid (Lansoprazole) 30 Mg Capdr 30 Mg PO BID Amlodipine (Amlodipine Besylate) 5 Mg Tab 5 Mg PO BID Active Ordered Medications Current Medications Medications (Trade) Dose Ordered Sig/Lilly Route Start Time Stop Time Status Last Admin (NS Flush) 2 ml UNSCH PRN IV FLUSH 01/17/17 16:30 01/24/17 23:33 (NS Flush) 2 ml BID IV FLUSH 01/17/17 21:00 02/04/17 19:42 (Zofran Inj) 4 mg Q6H PRN IV 01/17/17 16:30 01/22/17 13:19 (Protonix Inj) 40 mg Q24H IV 01/17/17 18:00 02/04/17 16:21 (Benadryl Inj) 25 mg Q6H PRN IV 01/17/17 16:30 (Narcan Inj) 0.4 mg UNSCH PRN IV 01/17/17 16:30 (Duoneb Neb) 1 ampule Q2HR NEB PRN NEB 01/21/17 11:15 01/31/17 20:05 (Ativan Inj) 0.5 mg Q6H PRN IV 01/21/17 17:30 01/30/17 10:08 (Narcan Inj) 0.4 mg UNSCH PRN IV 01/22/17 20:45 (Dilaudid AUDIT MGR Inj) 6 mg UNSCH IV 01/22/17 20:45 01/24/17 04:16 (Apresoline Inj) 10 mg Q6H PRN IV 01/23/17 12:15 02/04/17 16:21 (NS Flush) See Protocol DAILY IV FLUSH 01/24/17 09:00 02/03/17 08:36 (NS Flush) See Protocol UNSCH PRN IV FLUSH 01/23/17 20:00 (Heparin Central Flush) See Protocol DAILY IV FLUSH 01/24/17 09:00 01/31/17 08:54 (Heparin Central Flush) See Protocol UNSCH PRN IV FLUSH 01/23/17 20:00 01/27/17 23:08 (Peridex 0.12% Liq) 15 ml BID@08,20 MT 01/24/17 20:00 02/04/17 09:16 Propofol 100 ml @ 0 mls/hr TITRATE IV 01/24/17 14:30 02/01/17 07:03 Piperacillin Sod/ Tazobactam Sod 100 ml @ 200 mls/hr Q6H IV 01/24/17 22:00 02/04/17 16:21 (Dilaudid Pf Inj) 1 mg Q1H PRN IV 01/25/17 00:45 01/30/17 02:39 (Glucagon Inj) 1 mg UNSCH PRN OTHER 01/25/17 11:00 (NovoLOG SUPPLEMENTAL SCALE) 1 Q4HR SQ 01/26/17 16:00 02/04/17 04:00 (Ofirmev 1000 Mg/ 100 ml Inj) 1,000 mg Q6H PRN IV 01/27/17 05:00 02/02/17 06:26 Pharmacy Profile Note 0 ml @ 0 mls/hr UNSCH OTHER 01/27/17 07:30 (Lovenox Inj) 30 mg Q24H SQ 01/28/17 16:00 02/04/17 16:21 Fluconazole/ Sodium Chloride 200 ml @ 100 mls/hr Q24H IV 01/29/17 11:00 02/04/17 13:10 Vancomycin HCl 2000 mg/Sodium Chloride 520 ml @ 250 mls/hr Q12H IV 01/29/17 22:00 02/04/17 10:41 Midazolam HCl 100 ml @ 2 mls/hr TITRATE PRN IV 01/30/17 11:30 02/03/17 20:33 Fentanyl Citrate 250 ml @ 5 mls/hr TITRATE PRN IV 01/30/17 15:00 02/04/17 04:56 (Dulcolax Supp) 10 mg DAILY PRN RECTAL 01/30/17 20:00 01/31/17 03:57 (D50w (Syr) Inj) 50 ml UNSCH PRN IV 01/31/17 20:15 01/31/17 20:29 (Levemir Inj) 10 units Q12HR SQ 02/01/17 09:00 02/04/17 09:25 Dexmedetomidine HCl 200 mcg/ Sodium Chloride 50 ml @ 5.55 mls/hr TITRATE PRN IV 02/02/17 15:45 02/04/17 19:41 (Lasix Inj) 40 mg DAILY IV PUSH 02/03/17 17:15 02/04/17 09:17 (Trandate Inj) 20 mg Q2H PRN IV PUSH 02/04/17 10:15 02/04/17 13:11 Family History reviewed and NC to current ID problems. 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 Physical Exam Vital Signs Vital Signs Date Time Temp Pulse Resp B/P (MAP) Pulse Ox O2 Delivery O2 Flow Rate FiO2 02/04/17 19:24 Venturi Mask 02/04/17 18:00 88 02/04/17 16:00 82 02/04/17 16:00 99.7 82 28 157/74 (101) 93 02/04/17 14:00 86 02/04/17 13:16 93 Venturi Mask 40 02/04/17 13:00 92 Nasal Cannula 4 02/04/17 13:00 96 Venturi Mask 50 02/04/17 12:00 86 02/04/17 12:00 99.3 86 20 163/55 (91) 97 02/04/17 12:00 45 02/04/17 11:35 97 45 02/04/17 10:00 82 02/04/17 09:30 99 45 02/04/17 09:30 45 02/04/17 08:00 50 02/04/17 08:00 98 02/04/17 08:00 99.0 100 24 134/60 (84) 100 02/04/17 04:34 98 50 02/04/17 04:00 60 02/04/17 04:00 99.3 76 15 144/66 (92) 97 02/04/17 00:00 60 02/04/17 00:00 100.2 83 15 137/62 (87) 98 02/03/17 23:56 98 55 02/03/17 21:29 98 60 02/03/17 20:00 100.0 85 17 194/80 (118) 100 02/03/17 20:00 60 Physical Exam GENERAL: This is a well-nourished, well-developed patient, in no apparent distress. SKIN: No rashes, ecchymoses or lesions. Cool and dry. HEAD: Atraumatic. Normocephalic. No temporal or scalp tenderness. EYES: Pupils equal round and reactive. Extraocular motions intact. No scleral icterus. No injection or drainage. ENT: Nose without bleeding, purulent drainage or septal hematoma. Throat without erythema, tonsillar hypertrophy or exudate. Uvula midline. Airway patent. NECK: Trachea midline. Supple, nontender, no meningeal signs. CARDIOVASCULAR: Regular rate and rhythm without murmurs, gallops, or rubs. RESPIRATORY: Clear to auscultation. Breath sounds equal bilaterally. No wheezes , rales, or rhonchi. GASTROINTESTINAL: Midline surgical site with lower 2-3 sutures that looked erythematous and minimal purulence at lower end. The ANDREW drain sites looks slightly erythematous as well. ANDREW drain with grayish white, 40 mL fluid in the drain. MUSCULOSKELETAL: Extremities without clubbing, cyanosis, or edema. No joint tenderness, effusion, or edema noted. No calf tenderness. Negative Homans sign bilaterally. NEUROLOGICAL: Awake and alert. Grossly non focal Psych: cooperative IV line sites with no e.o infection. Laboratory Laboratory Tests Test 02/04/17 09:30 02/04/17 14:10 White Blood Count 10.0 Red Blood Count 2.88 Hemoglobin 9.3 Hematocrit 27.1 Mean Corpuscular Volume 94.1 Mean Corpuscular Hemoglobin 32.3 Mean Corpuscular Hemoglobin Concent 34.3 Red Cell Distribution Width 13.4 Platelet Count 468 Mean Platelet Volume 7.8 Neutrophils (%) (Auto) 77.4 Lymphocytes (%) (Auto) 12.3 Monocytes (%) (Auto) 8.8 Eosinophils (%) (Auto) 1.2 Basophils (%) (Auto) 0.3 Neutrophils # (Auto) 7.7 Lymphocytes # (Auto) 1.2 Monocytes # (Auto) 0.9 Eosinophils # (Auto) 0.1 Basophils # (Auto) 0.0 CBC Comment DIFF FINAL Differential Comment Blood Urea Nitrogen 12 Creatinine 0.51 Random Glucose 123 Total Protein 6.5 Albumin 1.1 Calcium Level 7.5 Alkaline Phosphatase 165 Aspartate Amino Transf (AST/SGOT) 36 Alanine Aminotransferase (ALT/SGPT) 30 Total Bilirubin 0.2 Sodium Level 143 Potassium Level 3.8 Chloride Level 106 Carbon Dioxide Level 32.1 Anion Gap 5 Estimat Glomerular Filtration Rate 164 C-Reactive Protein 10.00 Stool C. difficile Toxin (PCR) NEGATIVE Stl C. difficile Toxin Epiderm 027 PRESUMPTIVE NEGATIVE Date/Time Source Procedure Growth Status 01/31/17 14:30 Blood Peripheral Aerobic Blood Culture - Preliminary NO GROWTH IN 4 DAYS Resulted 01/31/17 14:30 Blood Peripheral Anaerobic Blood Culture - Preliminary NO GROWTH IN 4 DAYS Resulted 01/31/17 12:20 Sputum Endotracheal Gram Stain - Final Complete 01/31/17 12:20 Sputum Endotracheal Sputum Culture - Final RARE GROWTH NORMAL RESPIRATORY DEMARCUS Complete 01/27/17 08:00 Urine Catheterized Urine Urine Culture - Final NO GROWTH IN 48 HOURS. Complete 02/04/17 17:00 Wound Abdomen Gram Stain Pending Received 02/04/17 17:00 Wound Abdomen Wound Culture Pending Received Result Diagram: 02/04/17 0930 02/04/17 0930 Imaging Last Impressions Chest X-Ray 02/04/17 0600 Signed Impressions: Service Date/Time: Saturday, February 04, 2017 02:24 - CONCLUSION: Persistent bibasilar atelectasis with the tubes and catheters in good position. Darian Saucedo MD Lower Extremity Ultrasound 01/27/17 0000 Signed Impressions: Service Date/Time: Friday, January 27, 2017 12:49 - CONCLUSION: No DVT in either lower extremity. Elijah Funes MD Chest Ultrasound 01/24/17 0000 Signed Impressions: Service Date/Time: Tuesday, January 24, 2017 11:13 - CONCLUSION: 1. Large left pleural effusion. Jayson Das MD Chest CT 01/23/17 0000 Signed Impressions: Service Date/Time: Monday, January 23, 2017 18:54 - CONCLUSION: 1. Moderate-sized bilateral pleural effusions. Right pleural effusion has several small areas of loculation as above. 2. Bilateral lower lobe consolidation. 3. Somewhat mass like fullness in the right infrahilar region. A contrast- enhanced CT of the chest is recommended, preferably after resolution of pleural effusions and bibasilar consolidation. Gonzales Pierre MD Upper GI/Barium Swallow X-Ray 01/22/17 0000 Signed Impressions: Service Date/Time: Sunday, January 22, 2017 12:29 - CONCLUSION: 1. Findings suspicious for a small leak at the gastroesophageal junction with contrast pooling into an air fluid collection adjacent to the GE junction and distal esophagus. There was an end to side anastomosis performed so it is possible, but felt unlikely, that the collection represents a portion of the proximal stomach. 2. Findings were discussed with Dr. Ritchie. Gonzales Ramsay MD Abdomen CT 01/22/17 0000 Signed Impressions: Service Date/Time: Sunday, January 22, 2017 17:12 - CONCLUSION: 1. There is an abnormal air and fluid collection located to the right of the GE junction adjacent to the proximal stomach. It extends into the posterior mediastinum. The current appearance and findings on fluoroscopy examination earlier today are indicative of a leak at the anastomosis. The current surgical drain is not directly adjacent to the collection and based on the location I do not think that we could place a drain in an appropriate location percutaneously. 2. Small bilateral pleural effusions with associated atelectasis and/or consolidation in both lower lobes. Gonzales Ramsay MD Assessment and Plan Assessment and Plan Fevers in a postop patient. 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 He was staged at a T1a,Nx based on EUS. January 17, 2017 status post lap cholecystectomy, lap partial gastrectomy with Esophageal gastrointestinal anastomosis and Botox injection in the esophagus. January 24, 2017 bilateral chest tube placement for pleural effusions, open subtotal gastrectomy with gastric conduit formation, GE anastomosis, jejunostomy and feeding tube placement. Intra-abdominal abscess likely secondary to anastomotic leak Due to persistent fevers as well as change in the drain fluid to white quiroz color there is a concern for ongoing fungal infection. Patient temps seem to have defervesced after addition of Diflucan. Recommendations Continue Zosyn IV Continue Vanco IV Continue Diflucan Due to concerns for new or increasing size of intra-abdominal abscess recommend CT chest abdomen pelvis. Dr. Ritchie is ok with 25 cc of oral contrast only for the CT. Culture wound from Surgical site Check CRP Follow Stool Cdiff test Follow cultures Follow clinically Follow imaging. D.w Dr.Gamenthaler Molinaw RN and [facility] . Kaia Pate MD Feb 04, 2017 20:19
[2017-02-04] MEDS: LORazepam 2 MG/ML VIAL IV PRN (22:58)
[2017-02-04] MEDS ORDERED: IOHEXOL 350 MG/ML 10 ML VIAL (for RAD DIAG) IVCONTRAST ONE (23:26)
--- NOTE | 2017-02-04 23:40 | RADRPT ---
EXAM DATE/TIME: 02/04/2017 23:18 [facility] COMPARISON: CT ABDOMEN W/O CONTRAST, January 22, 2017, 17:12. INDICATIONS : Evaluate for abscess. IV CONTRAST: 95 cc Omnipaque 350 (iohexol) IV ; Cumulative dose for multiple exams. ORAL CONTRAST: Prescribed oral contrast ingested. RADIATION DOSE: 19.39 CTDIvol (mGy) ; Combined studies - Thorax/Abdomen/Pelvis MEDICAL HISTORY : Hypertension. Gastroesophageal reflux disease. Stomach and esophagus cancer. SURGICAL HISTORY : None. ENCOUNTER: Initial ACUITY: 1 day PAIN SCALE: 0/10 LOCATION: Bilateral abdomen TECHNIQUE: Volumetric scanning of the abdomen and pelvis was performed. Using automated exposure control and ad justment of the mA and/or kV according to patient size, radiation dose was kept as low as reasonably achievable to obtain optimal diagnostic quality images. DICOM format image data is available electro nically for review and comparison. FINDINGS: LOWER LUNGS: Please refer to chest CT report for description of the supradiaphragmatic findings. LIVER: Homogeneous density without lesion. There is no dilation of the biliary tree. There has been prior cholecystectomy clips in the gallbladder fossa. SPLEEN: Normal size without lesion. PANCREAS: No acute abnormality. KIDNEYS: Normal in size and shape. There is no mass, stone or hydronephrosis. ADRENAL GLANDS: Within normal limits. VASCULAR: There is no aortic aneurysm. There is severe atherosclerotic disease. BOWEL/MESENTERY: There has been prior gastric surgery at the GE junction. Surgical staple line is visualized. There is air, fluid material, and oral contrast extending into the posterior mediastinum near the distal esop hagus but it appears extraluminal. There is also a small amount of contrast opacified fluid and air a butting the greater curvature of the stomach. The majority of oral contrast passes into the stomach a nd small intestine. A J-tube is present and appears appropriately positioned. There are 2 new surgica l drains present. One extending in the subhepatic space terminating near the gastrohepatic ligament d irectly adjacent to the fluid collection. There is a second drain in the left upper quadrant near the medial spleen. There is inflammation of the fat anteriorly in the extraperitoneal space deep to the incision site. There is trace free fluid in the pelvis. Rectal tube is present. ABDOMINAL WALL: Skin allie are present anteriorly and there is subcutaneous edema at the surgical site. 2 surgical drains traverse the abdominal wall as well as a jejunal feeding tube. There is mild diffuse subcutane ous edema. RETROPERITONEUM: There is no lymphadenopathy. BLADDER: Mostly decompressed with Soto catheter present. Urinary bladder contains air. REPRODUCTIVE: Within normal limits. INGUINAL: There is no lymphadenopathy. There is a small fat containing left inguinal hernia. MUSCULOSKELETAL: There degenerative changes throughout the lumbar spine. CONCLUSION: 1. No abscess is visualized, as questioned. However, there continues to be a small amount of fluid an d air that appears extraluminal and located adjacent to the proximal stomach and extending into the p osterior mediastinum adjacent to the distal esophagus. The right subhepatic drain is located near a p ortion of the fluid collection. There is also trace free fluid in the pelvis. 2. Anasarca. 3. Please refer to chest CT report for description of the supradiaphragmatic findings. Gonzales Ramsay MD on February 04, 2017 at 23:29 Board Certified Radiologist. This report was verified electronically.
--- NOTE | 2017-02-04 23:53 | RADRPT ---
EXAM DATE/TIME: 02/04/2017 23:18 [facility] COMPARISON: CT THORAX W/O CONTRAST, January 23, 2017, 18:54. INDICATIONS : Pleural effusion. IV CONTRAST: 95 cc Omnipaque 350 (iohexol) IV ; Cumulative dose for multiple exams. RADIATION DOSE: 19.39 CTDIvol (mGy) ; Combined studies - Thorax/Abdomen/Pelvis MEDICAL HISTORY : Hypertension. Gastroesophageal reflux disease. Stomach and esophagus cancer. SURGICAL HISTORY : None. ENCOUNTER: Initial ACUITY: 1 day PAIN SCALE: 0/10 LOCATION: chest TECHNIQUE: Volumetric scanning of the chest was performed. Using automated exposure control and adjustment of t he mA and/or kV according to patient size, radiation dose was kept as low as reasonably achievable to obtain optimal diagnostic quality images. DICOM format image data is available electronically for review and comparison. Follow-up recommendations for detected pulmonary nodules are based at a minimum on nodule size and pa tient risk factors according to Fleischner Society Guidelines. FINDINGS: LUNGS: There is bilateral posterior and lower lobe atelectasis with possible lower lobe consolidation. Small bilateral pleural effusions are present and appear somewhat loculated but overall decreased in volum e. No pneumothorax is present. PLEURA: There are small bilateral pleural effusions, decreased in volume from the prior study. No pleural thi ckening is visualized.. MEDIASTINUM: The heart and great vessels demonstrate no acute abnormality. There are enlarged bilateral hilar lym ph nodes measuring 16 mm in short axis diameter each. An enlarged pretracheal lymph node measures 11 mm. Right IJ central line distal tip is at the cavoatrial junction. Nasogastric tube is in the esopha miladys with distal tip extending into the gastric body. AXILLAE: Within normal limits. No lymphadenopathy. SKELETAL: There are degenerative changes of the thoracic spine. MISCELLANEOUS: Please refer to abdomen and pelvis CT report for description of the subdiaphragmatic findings. CONCLUSION: 1. Small bilateral pleural effusions, decreased in volume from the prior study with adjacent compress raf atelectasis in the lower lobes and possible consolidation. 2. Mediastinal and bilateral hilar lymphadenopathy. 3. Please refer to abdomen and pelvis CT report for description of the subdiaphragmatic findings. Gonzales Ramsay MD on February 04, 2017 at 23:47 Board Certified Radiologist. This report was verified electronically.
[2017-02-05] VITALS (12 sets, daily range): BP systolic 144–190; BP diastolic 64–82; PULSE 72–99; RESP 24–39; TEMP 98.9–100; O2SAT 90–98
[2017-02-05] MEDS: DEXMEDETOMIDINE INJ 1,000 MCG in SODIUM CHLOR 0.9% 250 ML INJ 240 ML IV PRN ×3 (00:06→15:17)
[2017-02-05] MEDS: hydrALAZINE HCL 20 MG/ML VIAL IV PRN ×4 (01:38→23:27)
[2017-02-05] MEDS: HYDROmorphone HCL PF 1 MG/ML VIAL IV PRN ×2 (02:45→12:48)
[2017-02-05] MEDS: INSULIN ASPART SUPPLEMENTAL SCALE SQ SCH ×5 (04:00→21:44)
[2017-02-05] MEDS: PIPERACIL-TAZO 4.5 GM PREMIX 100 ML IV SCH ×4 (04:03→22:51)
[2017-02-05 05:19] LABS: AUTOMATED NEUTROPHIL # 10.1 TH/MM3 (1.8-7.7); BASOPHIL % 0.2 % (0.0-2.0); EOSINOPHIL % 0.1 % (0.0-4.0); HEMATOCRIT 28.7 % (39.0-51.0); HEMO FLAGS DIFF FINAL; LYMPH % 11.1 % (9.0-44.0); LYMPHOCYTE # 1.4 TH/MM3 (1.0-4.8); MEAN CELL VOLUME 93.7 FL (80.0-100.0); MEAN CORPUSCULAR HEMOGLOBIN 31.1 PG (27.0-34.0); MEAN CORPUSCULAR HGB CONC 33.2 % (32.0-36.0); MONO % 7.8 % (0.0-8.0); NEUT % 80.8 % (16.0-70.0); PLATELET COUNT 477 TH/MM3 (150-450); RED BLOOD COUNT 3.06 MIL/MM3 (4.50-5.90); RED CELL DISTRIBUTION WIDTH 13.1 % (11.6-17.2); WHITE BLOOD COUNT 12.5 TH/MM3 (4.0-11.0)
[2017-02-05 05:29] LABS: ALT (GPT) 29 U/L (12-78); ANION GAP 7 MEQ/L (5-15); AST (GOT) 34 U/L (15-37); BICARBONATE 29.8 MEQ/L (21.0-32.0); BLOOD UREA NITROGEN 10 MG/DL (7-18); CHLORIDE 106 MEQ/L (98-107); GLOMERULAR FILTRATION RATE 150 ML/MIN (>89); POTASSIUM 3.7 MEQ/L (3.5-5.1); SODIUM (NA) 143 MEQ/L (136-145)
[2017-02-05 05:31] LABS: ALKALINE PHOSPHATASE 146 U/L (45-117); TOTAL BILIRUBIN ADULT 0.3 MG/DL (0.2-1.0)
[2017-02-05] MEDS: LORazepam 2 MG/ML VIAL IV PRN ×2 (05:47→23:27)
[2017-02-05] MEDS: CHLORHEXIDINE 0.12% (ORAL KIT) 15 ML CUP MT SCH ×2 (08:00→20:00)
[2017-02-05] MEDS: FUROSEMIDE 40 MG/4 ML VIAL IV PUSH SCH (08:43)
[2017-02-05] MEDS: VANCOMYCIN INJ 2,000 MG in SODIUM CHLORID 0.9% 500 ML INJ 500 ML IV SCH ×2 (08:44→23:28)
[2017-02-05] MEDS: INSULIN DETEMIR 100 UNITS/ML VIAL SQ SCH ×2 (08:45→21:43)
[2017-02-05] MEDS: SODIUM CHLORIDE 0.9% FLUSH 10 ML FLUSH IV FLUSH SCH ×2 (09:00→21:00)
--- NOTE | 2017-02-05 11:56 | HHI.PR ---
Subjective Subjective Notes stable, extubated, on rebreather, tolerating tf Objective Vitals/I&O Vital Signs Date Time Temp Pulse Resp B/P (MAP) Pulse Ox O2 Delivery O2 Flow Rate FiO2 02/05/17 10:00 81 02/05/17 09:26 92 Venturi Mask 50 02/05/17 08:00 98.9 28 144/64 (90) 02/04/17 13:00 4 Labs Laboratory Tests Test 02/04/17 14:10 02/05/17 04:50 Stool C. difficile Toxin (PCR) NEGATIVE Stl C. difficile Toxin Epiderm 027 PRESUMPTIVE NEGATIVE White Blood Count 12.5 Red Blood Count 3.06 Hemoglobin 9.5 Hematocrit 28.7 Mean Corpuscular Volume 93.7 Mean Corpuscular Hemoglobin 31.1 Mean Corpuscular Hemoglobin Concent 33.2 Red Cell Distribution Width 13.1 Platelet Count 477 Mean Platelet Volume 7.8 Neutrophils (%) (Auto) 80.8 Lymphocytes (%) (Auto) 11.1 Monocytes (%) (Auto) 7.8 Eosinophils (%) (Auto) 0.1 Basophils (%) (Auto) 0.2 Neutrophils # (Auto) 10.1 Lymphocytes # (Auto) 1.4 Monocytes # (Auto) 1.0 Eosinophils # (Auto) 0.0 Basophils # (Auto) 0.0 CBC Comment DIFF FINAL Differential Comment Blood Urea Nitrogen 10 Creatinine 0.55 Random Glucose 110 Total Protein 7.0 Albumin 1.3 Calcium Level 7.7 Alkaline Phosphatase 146 Aspartate Amino Transf (AST/SGOT) 34 Alanine Aminotransferase (ALT/SGPT) 29 Total Bilirubin 0.3 Sodium Level 143 Potassium Level 3.7 Chloride Level 106 Carbon Dioxide Level 29.8 Anion Gap 7 Estimat Glomerular Filtration Rate 150 Date/Time Source Procedure Growth Status 02/04/17 20:10 Blood Peripheral Aerobic Blood Culture - Preliminary NO GROWTH IN 1 DAY Resulted 02/04/17 20:10 Blood Peripheral Anaerobic Blood Culture - Preliminary NO GROWTH IN 1 DAY Resulted 01/31/17 12:20 Sputum Endotracheal Gram Stain - Final Complete 01/31/17 12:20 Sputum Endotracheal Sputum Culture - Final RARE GROWTH NORMAL RESPIRATORY DEMARCUS Complete 01/27/17 08:00 Urine Catheterized Urine Urine Culture - Final NO GROWTH IN 48 HOURS. Complete 02/04/17 17:00 Wound Abdomen Gram Stain - Final Resulted 02/04/17 17:00 Wound Abdomen Wound Culture Pending Resulted Radiology Last Impressions Chest X-Ray 01/27/17 0600 Signed Impressions: Service Date/Time: Friday, January 27, 2017 04:22 - CONCLUSION: 1. Support apparatus in satisfactory position. Mild basilar airspace disease. No pneumothorax. Trace pleural fluid remains on the left. Jordan Lozano MD Lower Extremity Ultrasound 01/27/17 0000 Signed Impressions: Service Date/Time: Friday, January 27, 2017 12:49 - CONCLUSION: No DVT in either lower extremity. Elijah Funes MD Chest Ultrasound 01/24/17 0000 Signed Impressions: Service Date/Time: Tuesday, January 24, 2017 11:13 - CONCLUSION: 1. Large left pleural effusion. Jayson Das MD Chest CT 01/23/17 0000 Signed Impressions: Service Date/Time: Monday, January 23, 2017 18:54 - CONCLUSION: 1. Moderate-sized bilateral pleural effusions. Right pleural effusion has several small areas of loculation as above. 2. Bilateral lower lobe consolidation. 3. Somewhat mass like fullness in the right infrahilar region. A contrast- enhanced CT of the chest is recommended, preferably after resolution of pleural effusions and bibasilar consolidation. Gonzales Pierre MD Upper GI/Barium Swallow X-Ray 01/22/17 0000 Signed Impressions: Service Date/Time: Sunday, January 22, 2017 12:29 - CONCLUSION: 1. Findings suspicious for a small leak at the gastroesophageal junction with contrast pooling into an air fluid collection adjacent to the GE junction and distal esophagus. There was an end to side anastomosis performed so it is possible, but felt unlikely, that the collection represents a portion of the proximal stomach. 2. Findings were discussed with Dr. Ritchie. Gonzales Ramsay MD Abdomen CT 01/22/17 0000 Signed Impressions: Service Date/Time: Sunday, January 22, 2017 17:12 - CONCLUSION: 1. There is an abnormal air and fluid collection located to the right of the GE junction adjacent to the proximal stomach. It extends into the posterior mediastinum. The current appearance and findings on fluoroscopy examination earlier today are indicative of a leak at the anastomosis. The current surgical drain is not directly adjacent to the collection and based on the location I do not think that we could place a drain in an appropriate location percutaneously. 2. Small bilateral pleural effusions with associated atelectasis and/or consolidation in both lower lobes. Gonzales Ramsay MD Cardiovascular: Regular Lungs: Rhonchi Abdomen: Other (soft, john biliopurulent) A/P Problem List: (1) Primary adenocarcinoma of distal third of esophagus ICD Codes: C15.5 - Malignant neoplasm of lower third of esophagus Status: Acute (2) Atrial fibrillation with RVR ICD Codes: I48.91 - Unspecified atrial fibrillation Status: Acute (3) Acute hypoxemic respiratory failure ICD Codes: J96.01 - Acute respiratory failure with hypoxia Status: Acute (4) Gastric adenocarcinoma ICD Codes: C16.9 - Malignant neoplasm of stomach, unspecified Status: Acute Assessment and Plan 66 year old male POD18 laparoscopic gastrectomy and cholecystectomy with Botox injection; POD11 bilateral thoracostomy tube placement; open subtotal gastrectomy; jejunostomy tube placement -NGT to LIWS -IVF -Tolerating tube feeds -Culture from JOHN + for Saida --- Diflucan, ID following, CT scan reviewed no drainable fluid collection -Continue JOHN management to bulb suction -Bilateral chest tubes removed, lungs with persistent atelectasis and effusion- may benefit from pulm eval -Appreciate Tray Delivery Aide consult Yandel Howard MD Feb 05, 2017 11:56
[2017-02-05] MEDS: FLUCONAZOLE 400 MG PREMIX BAG 200 ML IV SCH (12:48)
[2017-02-05] MEDS: ENOXAPARIN SODIUM 30 MG/0.3 ML SYRINGE SQ SCH (14:39)
--- NOTE | 2017-02-05 16:13 | HHI.CCPN ---
Subjective Remarks/Hospital Course 66 y/o man has developed respiratory failure following a laparoscopic partial gastrectomy performed 01/17. He was brought to the [facility] where I met him on his arrival. Intubated for hypoxemic failure and lines placed. After 2 liters NS patient making > 40 ml/hr urine. Arrived in atrial fibrillation with rate 160s, converted after fluid, analgesia, and lopressor 5 mg X 1.Loaded with antibiotics. Family is aware. 01/25: Completion gastric resection and resuscitation. Urine output marginal but perfusion good. Tapering vasopressors. 01/26: Off all vasopressors. Tmax 100.4. Currently 100.2. Tolerating TPN. White cell count elevated 27,000. Arousable and follows commands on the ventilator. Subjective 01/27: Tmax 101.5. Pancultured including blood 2 from peripheral access and sputum. Added vancomycin. Arousable doesn't follow commands. Cultures sent from around surgical site. 01/28: Remains sedated, orally intubated on mechanical ventilation. 01/29: Remains sedated, orally intubated on mechanical ventilation. Remains febrile. 01/30: Remains sedated, orally intubated on mechanical ventilation. 01/31: Remains sedated, orally intubated on mechanical ventilation. Off TPN since 01/30. J-tube feeds being advanced to goal. Still febrile. Lipscomb cultures ordered. 02/01: Remains sedated, orally intubated on mechanical ventilation. Failing C Pap trials. Still having fevers. WBCs down to 11,000. 02/02: Remains sedated, orally intubated on mechanical ventilation. Tolerating J -tube feeds. Still having temperature spikes. 02/03: Sedated, arousable, orally intubated on mechanical ventilation. Tolerating J-tube feeds. Continues to have fever. Failing C Pap trials. 02/04: Sedated, arousable, orally intubated on mechanical ventilation. Tolerating J-tube feeds. Continues to have intermittent fevers. Failing C Pap trials. A.m. labs pending 02/05: Extubated on 02/04, requiring 50% Ventimask. Underwent CT chest abdomen pelvis which revealed presence of air-fluid level extraluminally including oral contrast extending into posterior mediastinum. Objective Vital Signs Date Time Temp Pulse Resp B/P (MAP) Pulse Ox O2 Delivery O2 Flow Rate FiO2 02/05/17 14:00 78 8/28/17 13:41 36 02/05/17 12:00 99.0 170/74 (106) 93 02/05/17 09:26 Venturi Mask 50 02/04/17 13:00 4 Intake and Output 02/05/17 02/05/17 02/06/17 08:00 16:00 00:00 Intake Total 1081 ml 570 ml Output Total 1150 ml Balance -69 ml 570 ml Result Diagram: 02/05/17 0450 02/05/17 0450 Imaging Last 48 hours Impressions Chest X-Ray 02/01/17 0600 Signed Impressions: Service Date/Time: January 05:12 - CONCLUSION: 1. Support apparatus in good position. Bilateral chest tubes without pneumothorax. Basal airspace disease. Jordan Lozano MD Chest X-Ray 02/01/17 0000 Signed Impressions: Service Date/Time: January 21:16 - CONCLUSION: 1. No pneumothorax or significant change following right chest tube removal. There is stable consolidation versus atelectasis in the right lower lung zone. 2. Left chest tube is present and no pneumothorax is visualized. There is stable left basilar opacity. Gonzales Ramsay MD Last Impressions Chest X-Ray 01/27/17 0600 Signed Impressions: Service Date/Time: Friday, January 27, 2017 04:22 - CONCLUSION: 1. Support apparatus in satisfactory position. Mild basilar airspace disease. No pneumothorax. Trace pleural fluid remains on the left. Jordan Lozano MD Chest Ultrasound 01/24/17 0000 Signed Impressions: Service Date/Time: Tuesday, January 24, 2017 11:13 - CONCLUSION: 1. Large left pleural effusion. Jayson Das MD Chest CT 01/23/17 0000 Signed Impressions: Service Date/Time: Monday, January 23, 2017 18:54 - CONCLUSION: 1. Moderate-sized bilateral pleural effusions. Right pleural effusion has several small areas of loculation as above. 2. Bilateral lower lobe consolidation. 3. Somewhat mass like fullness in the right infrahilar region. A contrast- enhanced CT of the chest is recommended, preferably after resolution of pleural effusions and bibasilar consolidation. Gonzales Pierre MD Upper GI/Barium Swallow X-Ray 01/22/17 0000 Signed Impressions: Service Date/Time: Sunday, January 22, 2017 12:29 - CONCLUSION: 1. Findings suspicious for a small leak at the gastroesophageal junction with contrast pooling into an air fluid collection adjacent to the GE junction and distal esophagus. There was an end to side anastomosis performed so it is possible, but felt unlikely, that the collection represents a portion of the proximal stomach. 2. Findings were discussed with Dr. Ritchie. Gonzales Ramsay MD Abdomen CT 01/22/17 0000 Signed Impressions: Service Date/Time: Sunday, January 22, 2017 17:12 - CONCLUSION: 1. There is an abnormal air and fluid collection located to the right of the GE junction adjacent to the proximal stomach. It extends into the posterior mediastinum. The current appearance and findings on fluoroscopy examination earlier today are indicative of a leak at the anastomosis. The current surgical drain is not directly adjacent to the collection and based on the location I do not think that we could place a drain in an appropriate location percutaneously. 2. Small bilateral pleural effusions with associated atelectasis and/or consolidation in both lower lobes. Gonzales Ramsay MD Objective Remarks Gen: 66-year-old male, critically ill currently orotracheally intubated with nasogastric tube right nares Head: NL. Atraumatic. Neck: No JVD Lungs: Orally intubated on mechanical ventilation. Decreased breath sounds both bases, scattered rhonchi bilaterally. Heart: NL S1S2, no murmur appreciated Abdomen: Mildly distended, soft. Post-surgical. Isidro drain on left/right. J- tube on left. Extremities: Warm, dry. We'll perfused Neuro: Sedated. Moves 4 limbs spontaneously. YESENIA. Line: Central Venous Catheter A/P Problem List: (1) Acute hypoxemic respiratory failure ICD Code: J96.01 - Acute respiratory failure with hypoxia Status: Acute (2) Primary adenocarcinoma of distal third of esophagus ICD Code: C15.5 - Malignant neoplasm of lower third of esophagus Status: Acute Assessment and Plan Neuro/Psych: Chronic Benzodiazepine use Chronic muscle relaxant use Precedex as needed. Currently extubated. Follow neuro status. Patient is on alprazolam 0.25 mg twice a day and diazepam 5 mill grams twice a day when necessary for anxiety at home. Patient is on Flexeril as needed muscle relaxant at home. CV: A. fib with RVR currently normal sinus rhythm History of hypertension History of dyslipidemia Holding home medications of amlodipine 5 mg twice a day and losartan 50 mg twice a day in light of borderline blood pressures Stopped IV digoxin on 02/03. Lopressor as needed for A. fib with RVR. TPN stopped 01/30. J-tube feeds advanced to goal. Not requiring vasopressors and/or anti-hypertensives at the current time. Started Lasix 40 mg IV daily on 02/03 to mobilize fluid. Resp: Acute hypercapnic respiratory failure Bilateral pleural effusions Extubated on 02/04, currently on 50% Ventimask. Scheduled due nebs every 6 hours with albuterol nebulizers every 2 hours. Right pigtail catheter removed on 02/01, left pigtail catheter removed by surgery 02/02 GI: 01/19 -cholecystectomy, proximal gastrectomy with GE junction anastomosis and Botox injection by Dr. Ritchie 01/24 - bilateral chest tubes/open subtotal gastrectomy and jejunostomy placement Gastroesophageal reflux disease Holding lansoprazole 30 mg by mouth daily. Currently on pantoprazole 40 mg IV daily Isidro tubes left/right. J-tube feeds at 50 cc an hour as tolerated : Soto catheter for accurate I's and O's in a critically ill patient Endo: Sliding-scale insulin with Novolog every 4 hours/medium. Levemir from 10 units twice a day on 02/01 in view of lower blood glucose levels. Renal: Strict intake output, monitor and replete electro lites, follow BUN/creatinine. Heme: Leukocytosis Normocytic anemia Monitor CBC daily. Follow trends ID: Currently on Zosyn, added vancomycin 01/27. Added fluconazole 400mg daily on for mae from ANDREW drain. Stopped levaquin 02/01 All blood cultures negative so far.. Wound culture with mae. Lipscomb cultures sent on 01/31, 06/12 blood culture with GPC ? contaminant. as patient still spiking fevers. left side isidro drain output appears pretty cloudy. May need to repeat CT abdomen pelvis by next week if continues to spike fevers. Requested ID consult for antibiotic management in view of ongoing fevers with probable fungal peritonitis on 02/04. Noted ID evaluation. Discussed CT abdomen pelvis findings with ID and Dr. Howard from general surgery covering for Dr. Gamenthaler - discussed findings of air fluid level as well as extraluminal oral contrast adjacent to GE junction extending into posterior mediastinum with ID and subsequently with Dr. Howard. Defer definitive management of the leak to general surgery. Per Dr. Howard no surgical intervention planned at this time. Patient at high risk for decompensating from leak. Remains on antibiotics per ID. FEN: Replace electrolytes as clinically indicated MSK: Range of motion Access - Right subclavian CVL 01/24, right upper extremity PICC placed 01/23 ( discontinue 02/01). Discontinued right radial arterial line 01/27 Prophylaxis - GI - pantoprazole - DVT - SCD/pharmacological prophylaxis when okay with surgery Updated patient's at bedside in detail and she voiced understanding and was agreeable with plan of care on 02/01. In view of findings of CT abdomen pelvis with ongoing leak, consider palliative care consult as prognosis is extremely guarded and patient at high risk of decompensating despite antibiotics. Luc Pate MD Feb 05, 2017 16:13
[2017-02-05] MEDS: LABETALOL HCL 100 MG/20 ML VIAL IV PUSH PRN ×2 (16:55→21:54)
[2017-02-05] MEDS: PANTOPRAZOLE SODIUM 40 MG VIAL IV SCH (16:55)
[2017-02-05] MEDS: RESP: ALBUTEROL 2.5 MG/IPRATROPIUM 0.5 MG NEB (PRN) NEB (17:53)
[2017-02-05] MEDS: RESP: ALBUTEROL 2.5 MG/IPRATROPIUM 0.5 MG NEB (SCH) NEB ×2 (18:00→21:02)
[2017-02-05 20:31] LABS: BLOOD GAS BASE EXCESS 4.8 mmol/L (-2-2); BLOOD GAS CARBOXYHEMOGLOBIN 0.9 % (0-4); BLOOD GAS HCO3 29 mmol/L (22-26); BLOOD GAS O2 HGB SATURATION 97 % (90-100); BLOOD GAS OXYGEN CONTENT 14.4 Vol % (12.0-20.0); BLOOD GAS PCO2 46 mmHg (38-42); BLOOD GAS PO2 192 mmHg (61-120); BLOOD GAS TOTAL HGB 10.2 G/DL (12.0-16.0); CRITICAL VALUE NO; DRAW SITE RT RADIAL; FIO2 100 %; LITER FLOW 15 L/M; NUMBER OF ARTERIAL PUNCTURES 1; STAT YES; TEMP CORR TO 98.6; ULNAR PULSE PRESENT
--- NOTE | 2017-02-05 21:34 | RADRPT ---
EXAM DATE/TIME: 02/05/2017 20:04 [facility] COMPARISON: CHEST SINGLE AP, February 04, 2017, 2:24. INDICATIONS : Short of breath. MEDICAL HISTORY : Hypertension. Carcinoma, esophageal. Carcinoma, gastric SURGICAL HISTORY : Gastrectomy. ENCOUNTER: Subsequent ACUITY: 3 weeks PAIN SCORE: 0/10 LOCATION: Bilateral chest FINDINGS: An NG tube is in place with the tip at the level of the GE junction. This could be advanced. There a ppears to be a left-sided chest tube in place. A significant pneumothorax is not seen. There is incr eased density at the left base with silhouetting of the left hemidiaphragm and air bronchograms seen. There is prominence in the interstitial markings throughout both lungs. There is hazy density seen at the medial right mid and lower lung. CONCLUSION: 1. NG tube with its tip at the GE junction region. This could be advanced. 2. Suspected area of consolidation at the left base. A milder area of consolidation may be present at the medial right mid and lower lung. 3. Prominence in the interstitial markings which may represent underlying edema. Gonzales Bernstein MD on February 05, 2017 at 21:27 Board Certified Radiologist. This report was verified electronically.
[2017-02-06] VITALS (17 sets, daily range): BP systolic 113–233; BP diastolic 53–98; PULSE 62–90; RESP 16–39; TEMP 98.6–99.7; O2SAT 93–100
[2017-02-06] MEDS: LABETALOL HCL 100 MG/20 ML VIAL IV PUSH PRN ×2 (01:05→05:46)
[2017-02-06] MEDS: RESP: ALBUTEROL 2.5 MG/IPRATROPIUM 0.5 MG NEB (PRN) NEB (01:13)
[2017-02-06] MEDS: DEXMEDETOMIDINE INJ 1,000 MCG in SODIUM CHLOR 0.9% 250 ML INJ 240 ML IV PRN (03:00)
[2017-02-06] MEDS: PIPERACIL-TAZO 4.5 GM PREMIX 100 ML IV SCH ×4 (03:03→21:48)
[2017-02-06] MEDS: hydrALAZINE HCL 20 MG/ML VIAL IV PRN (03:03)
[2017-02-06] MEDS: RESP: ALBUTEROL 2.5 MG/IPRATROPIUM 0.5 MG NEB (SCH) NEB ×4 (03:25→21:04)
[2017-02-06] MEDS: HYDROmorphone HCL PF 1 MG/ML VIAL IV PRN (03:48)
[2017-02-06] MEDS: INSULIN ASPART SUPPLEMENTAL SCALE SQ SCH ×6 (04:00→20:00)
--- NOTE | 2017-02-06 05:04 | RADRPT ---
EXAM DATE/TIME: 02/06/2017 04:30 [facility] COMPARISON: CHEST SINGLE AP, February 05, 2017, 20:04. INDICATIONS : Respiratory failure. MEDICAL HISTORY : Hypertension. Carcinoma, esophageal. Carcinoma, gastric SURGICAL HISTORY : Gastrectomy. ENCOUNTER: Subsequent ACUITY: 3 weeks PAIN SCORE: Non-responsive. LOCATION: Bilateral chest FINDINGS: Portable AP view of the chest demonstrates a normal-sized cardiac silhouette. Nasogastric tube slight ly crosses the GE junction was sent along the distal esophagus. There is patchy interstitial and airs pace opacity bilaterally with blunting of the left costophrenic sulcus. No pneumothorax is visualized . CONCLUSION: Stable chest x-ray with small left pleural effusion and bilateral interstitial and airspace opacities . Gonzales Ramsay MD on February 06, 2017 at 5:02 Board Certified Radiologist. This report was verified electronically.
[2017-02-06 05:32] LABS: AUTOMATED NEUTROPHIL # 10.3 TH/MM3 (1.8-7.7); BASOPHIL % 0.2 % (0.0-2.0); HEMATOCRIT 28.4 % (39.0-51.0); HEMO FLAGS DIFF FINAL; LYMPH % 8.8 % (9.0-44.0); LYMPHOCYTE # 1.1 TH/MM3 (1.0-4.8); MEAN CELL VOLUME 93.4 FL (80.0-100.0); MEAN CORPUSCULAR HEMOGLOBIN 30.3 PG (27.0-34.0); MEAN CORPUSCULAR HGB CONC 32.5 % (32.0-36.0); MONO % 7.9 % (0.0-8.0); NEUT % 83.1 % (16.0-70.0); PLATELET COUNT 515 TH/MM3 (150-450); RED BLOOD COUNT 3.04 MIL/MM3 (4.50-5.90); WHITE BLOOD COUNT 12.4 TH/MM3 (4.0-11.0)
[2017-02-06 06:03] LABS: ALT (GPT) 30 U/L (12-78); ANION GAP 6 MEQ/L (5-15); AST (GOT) 34 U/L (15-37); BICARBONATE 29.5 MEQ/L (21.0-32.0); BLOOD UREA NITROGEN 13 MG/DL (7-18); CHLORIDE 112 MEQ/L (98-107); GLOMERULAR FILTRATION RATE 164 ML/MIN (>89); POTASSIUM 3.3 MEQ/L (3.5-5.1); SODIUM (NA) 147 MEQ/L (136-145)
[2017-02-06 06:05] LABS: ALKALINE PHOSPHATASE 142 U/L (45-117); TOTAL BILIRUBIN ADULT 0.3 MG/DL (0.2-1.0)
[2017-02-06] MEDS: CHLORHEXIDINE 0.12% (ORAL KIT) 15 ML CUP MT SCH ×2 (08:00→21:06)
[2017-02-06] MEDS ORDERED: ETOMIDATE 40 MG/20 ML VIAL ONE (08:12)
[2017-02-06] MEDS ORDERED: ROCURONIUM INJ 50 MG/5 ML VIAL IV ONE (09:00)
[2017-02-06] MEDS: SODIUM CHLORIDE 0.9% FLUSH 10 ML FLUSH IV FLUSH SCH ×3 (09:00→21:06)
[2017-02-06] MEDS ORDERED: fentaNYL CITRATE 250 MCG/5 ML AMP IV ONE (09:00)
[2017-02-06] MEDS ORDERED: ETOMIDATE 20 MG/10 ML VIAL IVP ONE (09:00)
--- NOTE | 2017-02-06 09:26 | HHI.PR ---
Subjective Subjective Notes respiratory failure this am, reintubated, bp stable Objective Vitals/I&O Vital Signs Date Time Temp Pulse Resp B/P (MAP) Pulse Ox O2 Delivery O2 Flow Rate FiO2 02/06/17 06:00 72 02/06/17 04:00 99.3 18 151/72 (98) 99 02/06/17 03:45 80 02/06/17 01:00 Bi-Pap 15.00 Labs Laboratory Tests Test 02/05/17 20:17 02/06/17 05:00 Blood Gas Puncture Site RT RADIAL Blood Gas Patient Temperature 98.6 Blood Gas HCO3 29 Blood Gas Base Excess 4.8 Blood Gas Oxygen Saturation 97 Arterial Blood pH 7.42 Arterial Blood Partial Pressure CO2 46 Arterial Blood Partial Pressure O2 192 Arterial Blood Oxygen Content 14.4 Arterial Blood Carboxyhemoglobin 0.9 Arterial Blood Methemoglobin 1.0 Blood Gas Hemoglobin 10.2 Oxygen Delivery Device Non-Rebreathing Mask Blood Gas Liter Flow 15 Blood Gas Inspired Oxygen 100 White Blood Count 12.4 Red Blood Count 3.04 Hemoglobin 9.2 Hematocrit 28.4 Mean Corpuscular Volume 93.4 Mean Corpuscular Hemoglobin 30.3 Mean Corpuscular Hemoglobin Concent 32.5 Red Cell Distribution Width 13.0 Platelet Count 515 Mean Platelet Volume 7.7 Neutrophils (%) (Auto) 83.1 Lymphocytes (%) (Auto) 8.8 Monocytes (%) (Auto) 7.9 Eosinophils (%) (Auto) 0.0 Basophils (%) (Auto) 0.2 Neutrophils # (Auto) 10.3 Lymphocytes # (Auto) 1.1 Monocytes # (Auto) 1.0 Eosinophils # (Auto) 0.0 Basophils # (Auto) 0.0 CBC Comment DIFF FINAL Differential Comment Blood Urea Nitrogen 13 Creatinine 0.51 Random Glucose 107 Total Protein 7.1 Albumin 1.4 Calcium Level 7.8 Alkaline Phosphatase 142 Aspartate Amino Transf (AST/SGOT) 34 Alanine Aminotransferase (ALT/SGPT) 30 Total Bilirubin 0.3 Sodium Level 147 Potassium Level 3.3 Chloride Level 112 Carbon Dioxide Level 29.5 Anion Gap 6 Estimat Glomerular Filtration Rate 164 Date/Time Source Procedure Growth Status 02/05/17 12:00 Blood Line Aerobic Blood Culture Pending Received 02/05/17 12:00 Blood Line Anaerobic Blood Culture Pending Received 01/31/17 12:20 Sputum Endotracheal Gram Stain - Final Complete 01/31/17 12:20 Sputum Endotracheal Sputum Culture - Final RARE GROWTH NORMAL RESPIRATORY DEMARCUS Complete 01/27/17 08:00 Urine Catheterized Urine Urine Culture - Final NO GROWTH IN 48 HOURS. Complete 02/04/17 17:00 Wound Abdomen Gram Stain - Final Resulted 02/04/17 17:00 Wound Culture - Preliminary Saida Albicans Resulted Radiology Last Impressions Chest X-Ray 01/27/17 0600 Signed Impressions: Service Date/Time: Friday, January 27, 2017 04:22 - CONCLUSION: 1. Support apparatus in satisfactory position. Mild basilar airspace disease. No pneumothorax. Trace pleural fluid remains on the left. Jordan Lozano MD Lower Extremity Ultrasound 01/27/17 0000 Signed Impressions: Service Date/Time: Friday, January 27, 2017 12:49 - CONCLUSION: No DVT in either lower extremity. Elijah Funes MD Chest Ultrasound 01/24/17 0000 Signed Impressions: Service Date/Time: Tuesday, January 24, 2017 11:13 - CONCLUSION: 1. Large left pleural effusion. Jayson Das MD Chest CT 01/23/17 0000 Signed Impressions: Service Date/Time: Monday, January 23, 2017 18:54 - CONCLUSION: 1. Moderate-sized bilateral pleural effusions. Right pleural effusion has several small areas of loculation as above. 2. Bilateral lower lobe consolidation. 3. Somewhat mass like fullness in the right infrahilar region. A contrast- enhanced CT of the chest is recommended, preferably after resolution of pleural effusions and bibasilar consolidation. Gonzales Pierre MD Upper GI/Barium Swallow X-Ray 01/22/17 0000 Signed Impressions: Service Date/Time: Sunday, January 22, 2017 12:29 - CONCLUSION: 1. Findings suspicious for a small leak at the gastroesophageal junction with contrast pooling into an air fluid collection adjacent to the GE junction and distal esophagus. There was an end to side anastomosis performed so it is possible, but felt unlikely, that the collection represents a portion of the proximal stomach. 2. Findings were discussed with Dr. Ritchie. Gonzales Ramsay MD Abdomen CT 01/22/17 0000 Signed Impressions: Service Date/Time: Sunday, January 22, 2017 17:12 - CONCLUSION: 1. There is an abnormal air and fluid collection located to the right of the GE junction adjacent to the proximal stomach. It extends into the posterior mediastinum. The current appearance and findings on fluoroscopy examination earlier today are indicative of a leak at the anastomosis. The current surgical drain is not directly adjacent to the collection and based on the location I do not think that we could place a drain in an appropriate location percutaneously. 2. Small bilateral pleural effusions with associated atelectasis and/or consolidation in both lower lobes. Gonzales Ramsay MD Abdomen: Other (soft incision well approximated, john biliopurulent) A/P Problem List: (1) Primary adenocarcinoma of distal third of esophagus ICD Codes: C15.5 - Malignant neoplasm of lower third of esophagus Status: Acute (2) Atrial fibrillation with RVR ICD Codes: I48.91 - Unspecified atrial fibrillation Status: Acute (3) Acute hypoxemic respiratory failure ICD Codes: J96.01 - Acute respiratory failure with hypoxia Status: Acute (4) Gastric adenocarcinoma ICD Codes: C16.9 - Malignant neoplasm of stomach, unspecified Status: Acute Assessment and Plan 66 year old male s/p laparoscopic gastrectomy and cholecystectomy with Botox injection; s/p bilateral thoracostomy tube placement; open subtotal gastrectomy ; jejunostomy tube placement, CT scan reviewed no drainable fluid collection reintubated this am -NGT to LIWS -IVF -hold TF tube feeds -Culture from JOHN + for Saida --- Diflucan, ID following, -Continue JOHN management to bulb suction -Bilateral chest tubes removed, lungs with persistent atelectasis and effusion- may benefit from pulm eval, intubated isc to manage vent - will likely need tracheostomy - Will discuss with Dr. Ritchie regarding plan of care Yandel Howard MD Feb 06, 2017 09:26
--- NOTE | 2017-02-06 09:43 | RADRPT ---
EXAM DATE/TIME: 02/06/2017 08:53 [place] COMPARISON: CHEST SINGLE AP, February 06, 2017, 4:30. INDICATIONS : Endotracheal tube placement and central line placement. MEDICAL HISTORY : None. SURGICAL HISTORY : None. ENCOUNTER: Initial ACUITY: 3 weeks PAIN SCORE: Non-responsive. LOCATION: chest FINDINGS: Endotracheal tube is present in satisfactory position with tip 7 cm above the luna. A nasogastric t ube is present with tip in the fundus of the stomach. Side hole is in the distal esophagus. Left subc lavian central catheter is present in good position. No evidence of pneumothorax. Persistent diffuse bilateral parenchymal opacity and bilateral pleural effusions are again noted. Cardiac contours are g rossly stable. CONCLUSION: Satisfactory endotracheal tube and central line position. No complication. Nasogastric tube should be advanced slightly. Gonzales Kilgore MD on February 06, 2017 at 9:39 Board Certified Radiologist. This report was verified electronically.
[2017-02-06] MEDS: FLUCONAZOLE 400 MG PREMIX BAG 200 ML IV SCH (10:50)
[2017-02-06] MEDS: VANCOMYCIN INJ 2,000 MG in SODIUM CHLORID 0.9% 500 ML INJ 500 ML IV SCH ×2 (10:50→22:25)
[2017-02-06] MEDS: FUROSEMIDE 40 MG/4 ML VIAL IV PUSH SCH (10:50)
[2017-02-06] MEDS: INSULIN DETEMIR 100 UNITS/ML VIAL SQ SCH ×2 (10:59→21:15)
--- NOTE | 2017-02-06 15:16 | HHI.IDPN ---
Subjective Subjective Remarks Mr. 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 He was staged at a T1a,Nx based on EUS, CT thorax/Abd/pelvis and PET scan. Pt follows with Dr. Nickolas Luna for Oncology. [place] [facility] [place] for Laparoscopic gastrectomy and cholecystectomy with Botox injection with Dr. Ritchie. Patient was later being followed by hospitalist team and postoperatively he was hypoxic in the low 80s and due to ongoing concern for worsening infection patient was eventually taken to the OR on January 24, 2017. He underwent bilateral chest tube placement, also underwent open subtotal gastrectomy(70% of the stomach was removed per OR notes). Intraoperatively there was an anastomotic leak as well as mild adhesions and a small pocket of infection noted. 2 ANDREW drains were left in place and patient underwent revision of the gastroesophageal anastomosis. Patient underwent placement of a jejunostomy in the NG tube. After this he seemed to be doing okay but on January 27 he started spiking temperatures of 101 with a WBC count of 27.9. On January 31 patient again spiked another temperature on 101 while on IV antibiotics and his WBC increased to 18.1 he was pancultured on January 27 and again underwent further cultures testing on January 31. Postoperatively it appears that patient has been intubated in the ICU. He got extubated only today on February 04, 2017. He has a Soto that was placed on January 24, 2017. He has a triple lumen catheter which was placed on January 31, 2017. He additionally had a PICC line was placed on January 23 which has now been discontinued. At the time of my evaluation patient is in ISC extubated a few hours back and seems to be doing fairly okay. He often gets a little agitated and is mumbling to himself. He has fairly okay urine output. He has diarrhea and C. difficile test has been sent. I examined the wound with Dr. Ritchie and it appears that the bottom few stitches appear erythematous and one of them had very minimal specks of discharge. Dr. Ritchie removed these sutures and drained the minimal purulent material and this was sent for cultures. Staphylococcus Warneri was identified from one of the 4 cultures. Patient is currently on vancomycin repeat cultures were ordered by me today. Patient has a ANDREW drain which has grayish white drainage noted large amounts. Reportedly the fluid was initially clear and now has turned the grayish white color. Infectious disease is consulted for evaluation and management of sepsis and a postop patient. Overnight events reviewed. Was placed on BiPaP y. Was intubated this am. No fevers No rash No diarrhea Antibiotics Zosyn IV Vanco IV Fluconazole IV Lines Line sites with no e.o infection. Past Medical History reviewed. Allergies: Coded Allergies: amlodipine (Unverified Allergy, Severe, MUSCLE PAIN, 01/23/17) atorvastatin (Unverified Allergy, Severe, MUSCLE PAIN, 01/23/17) pravastatin (Unverified Allergy, Severe, MUSCLE PAIN, 01/23/17) simvastatin (Unverified Allergy, Severe, MUSCLE PAIN, 01/23/17) Objective . Vital Signs Date Time Temp Pulse Resp B/P (MAP) Pulse Ox O2 Delivery O2 Flow Rate FiO2 02/06/17 10:00 62 02/06/17 08:25 98 80 02/06/17 08:00 99.3 84 37 233/98 (143) 98 02/06/17 08:00 84 02/06/17 07:00 99 Bi-Pap 15.00 75 02/06/17 06:00 72 02/06/17 04:00 78 02/06/17 04:00 99.3 78 18 151/72 (98) 99 02/06/17 03:45 98 80 02/06/17 02:00 76 02/06/17 01:10 98 75 02/06/17 01:00 97 Bi-Pap 15.00 75 02/06/17 00:00 90 02/06/17 00:00 98.6 90 39 195/88 (123) 97 02/05/17 22:00 86 02/05/17 21:06 97 Non-Rebreather 100 02/05/17 20:00 100.0 86 39 181/82 (115) 98 02/05/17 20:00 86 02/05/17 19:00 97 Non-Rebreather 02/05/17 18:00 83 02/05/17 16:00 99.0 99 29 190/80 (116) 90 02/05/17 16:00 99 . Laboratory Tests Test 02/05/17 04:50 02/06/17 05:00 White Blood Count 12.5 TH/MM3 12.4 TH/MM3 Red Blood Count 3.06 MIL/MM3 3.04 MIL/MM3 Hemoglobin 9.5 GM/DL 9.2 GM/DL Hematocrit 28.7 % 28.4 % Mean Corpuscular Volume 93.7 FL 93.4 FL Mean Corpuscular Hemoglobin 31.1 PG 30.3 PG Mean Corpuscular Hemoglobin Concent 33.2 % 32.5 % Red Cell Distribution Width 13.1 % 13.0 % Platelet Count 477 TH/MM3 515 TH/MM3 Mean Platelet Volume 7.8 FL 7.7 FL Neutrophils (%) (Auto) 80.8 % 83.1 % Lymphocytes (%) (Auto) 11.1 % 8.8 % Monocytes (%) (Auto) 7.8 % 7.9 % Eosinophils (%) (Auto) 0.1 % 0.0 % Basophils (%) (Auto) 0.2 % 0.2 % Neutrophils # (Auto) 10.1 TH/MM3 10.3 TH/MM3 Lymphocytes # (Auto) 1.4 TH/MM3 1.1 TH/MM3 Monocytes # (Auto) 1.0 TH/MM3 1.0 TH/MM3 Eosinophils # (Auto) 0.0 TH/MM3 0.0 TH/MM3 Basophils # (Auto) 0.0 TH/MM3 0.0 TH/MM3 CBC Comment DIFF FINAL DIFF FINAL Differential Comment Laboratory Tests Test 02/05/17 04:50 02/06/17 05:00 02/06/17 08:45 Blood Urea Nitrogen 10 MG/DL 13 MG/DL Creatinine 0.55 MG/DL 0.51 MG/DL Random Glucose 110 MG/DL 107 MG/DL Total Protein 7.0 GM/DL 7.1 GM/DL Albumin 1.3 GM/DL 1.4 GM/DL Calcium Level 7.7 MG/DL 7.8 MG/DL Alkaline Phosphatase 146 U/L 142 U/L Aspartate Amino Transf (AST/SGOT) 34 U/L 34 U/L Alanine Aminotransferase (ALT/SGPT) 29 U/L 30 U/L Total Bilirubin 0.3 MG/DL 0.3 MG/DL Sodium Level 143 MEQ/L 147 MEQ/L Potassium Level 3.7 MEQ/L 3.3 MEQ/L Chloride Level 106 MEQ/L 112 MEQ/L Carbon Dioxide Level 29.8 MEQ/L 29.5 MEQ/L Anion Gap 7 MEQ/L 6 MEQ/L Estimat Glomerular Filtration Rate 150 ML/MIN 164 ML/MIN Lactic Acid Level 1.1 mmol/L Microbiology Date/Time Source Procedure Growth Status 02/06/17 09:15 Blood Line Aerobic Blood Culture Pending Received 02/06/17 09:15 Blood Line Anaerobic Blood Culture Pending Received 02/05/17 12:00 Blood Line Aerobic Blood Culture - Preliminary NO GROWTH IN 1 DAY Resulted 02/05/17 12:00 Blood Line Anaerobic Blood Culture - Preliminary NO GROWTH IN 1 DAY Resulted 02/04/17 20:10 Blood Peripheral Aerobic Blood Culture - Preliminary NO GROWTH IN 2 DAYS Resulted 02/04/17 20:10 Blood Peripheral Anaerobic Blood Culture - Preliminary NO GROWTH IN 2 DAYS Resulted 02/04/17 20:05 Blood Peripheral Aerobic Blood Culture - Preliminary NO GROWTH IN 2 DAYS Resulted 02/04/17 20:05 Blood Peripheral Anaerobic Blood Culture - Preliminary NO GROWTH IN 2 DAYS Resulted 02/06/17 09:30 Sputum Endotracheal Gram Stain Pending Received 02/06/17 09:30 Sputum Endotracheal Sputum Culture Pending Received 02/04/17 17:00 Wound Abdomen Gram Stain - Final Resulted 02/04/17 17:00 Wound Culture - Preliminary Saida Albicans Resulted Imaging Last Impressions Chest X-Ray 02/06/17 0600 Signed Impressions: Service Date/Time: Monday, February 06, 2017 04:30 - CONCLUSION: Stable chest x-ray with small left pleural effusion and bilateral interstitial and airspace opacities. Gonzales Ramsay MD Chest CT 02/04/17 0000 Signed Impressions: Service Date/Time: Saturday, February 04, 2017 23:18 - CONCLUSION: 1. Small bilateral pleural effusions, decreased in volume from the prior study with adjacent compressive atelectasis in the lower lobes and possible consolidation. 2. Mediastinal and bilateral hilar lymphadenopathy. 3. Please refer to abdomen and pelvis CT report for description of the subdiaphragmatic findings. Gonzales Ramsay MD Abdomen/Pelvis CT 02/04/17 0000 Signed Impressions: Service Date/Time: Saturday, February 04, 2017 23:18 - CONCLUSION: 1. No abscess is visualized, as questioned. However, there continues to be a small amount of fluid and air that appears extraluminal and located adjacent to the proximal stomach and extending into the posterior mediastinum adjacent to the distal esophagus. The right subhepatic drain is located near a portion of the fluid collection. There is also trace free fluid in the pelvis. 2. Anasarca. 3. Please refer to chest CT report for description of the supradiaphragmatic findings. Gonzales Ramsay MD Lower Extremity Ultrasound 01/27/17 Signed Impressions: Service Date/Time: Friday, January 27, 2017 12:49 - CONCLUSION: No DVT in either lower extremity. Elijah Funes MD Chest Ultrasound 01/24/17 0000 Signed Impressions: Service Date/Time: Tuesday, January 24, 2017 11:13 - CONCLUSION: 1. Large left pleural effusion. Jayson Das MD Upper GI/Barium Swallow X-Ray 01/22/17 Signed Impressions: Service Date/Time: Sunday, January 22, 2017 12:29 - CONCLUSION: 1. Findings suspicious for a small leak at the gastroesophageal junction with contrast pooling into an air fluid collection adjacent to the GE junction and distal esophagus. There was an end to side anastomosis performed so it is possible, but felt unlikely, that the collection represents a portion of the proximal stomach. 2. Findings were discussed with Dr. Ritchie. Gonzales Ramsay MD Abdomen CT 01/22/17 Signed Impressions: Service Date/Time: Sunday, January 22, 2017 17:12 - CONCLUSION: 1. There is an abnormal air and fluid collection located to the right of the GE junction adjacent to the proximal stomach. It extends into the posterior mediastinum. The current appearance and findings on fluoroscopy examination earlier today are indicative of a leak at the anastomosis. The current surgical drain is not directly adjacent to the collection and based on the location I do not think that we could place a drain in an appropriate location percutaneously. 2. Small bilateral pleural effusions with associated atelectasis and/or consolidation in both lower lobes. Gonzales Ramsay MD Physical Exam GENERAL: This is a well-nourished, well-developed patient, in no apparent distress. SKIN: No rashes, ecchymoses or lesions. Cool and dry. HEAD: Atraumatic. Normocephalic. No temporal or scalp tenderness. EYES: Pupils equal round and reactive. Extraocular motions intact. No scleral icterus. No injection or drainage. ENT: Nose without bleeding, purulent drainage or septal hematoma. Throat without erythema, tonsillar hypertrophy or exudate. Uvula midline. Airway patent. NECK: Trachea midline. Supple, nontender, no meningeal signs. CARDIOVASCULAR: Regular rate and rhythm without murmurs, gallops, or rubs. RESPIRATORY: Clear to auscultation. Breath sounds equal bilaterally. No wheezes , rales, or rhonchi. GASTROINTESTINAL: Midline surgical site with lower 2-3 sutures that looked erythematous and minimal purulence at lower end. The ANDREW drain sites looks slightly erythematous as well. ANDREW drain with grayish white, 40 mL fluid in the drain. MUSCULOSKELETAL: Extremities without clubbing, cyanosis, or edema. No joint tenderness, effusion, or edema noted. No calf tenderness. Negative Homans sign bilaterally. NEUROLOGICAL: Awake and alert. Grossly non focal Psych: cooperative IV line sites with no e.o infection. 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 He was staged at a T1a,Nx based on EUS. January 17, 2017 status post lap cholecystectomy, lap partial gastrectomy with Esophageal gastrointestinal anastomosis and Botox injection in the esophagus. January 24, 2017 bilateral chest tube placement for pleural effusions, open subtotal gastrectomy with gastric conduit formation, GE anastomosis, jejunostomy and feeding tube placement. Intra-abdominal abscess likely secondary to anastomotic leak Acute mediastinitis. Due to persistent fevers as well as change in the drain fluid to white quiroz color there is a concern for ongoing fungal infection. Patient temps seem to have defervesced after addition of Diflucan. C.Albicans from wound site ? SSI. Recommendations Continue Zosyn IV Continue Vanco IV Continue Diflucan IV Culture wound from Surgical site: C.albicans Follow Stool Cdiff test negative Follow cultures Follow clinically Follow imaging. D,w RN and KELVIN YANES. D/w family in room. d/w KELVIN YANES to discuss with surgeon about source control. expected tonight and covering surgeon to discuss with him. Kaia Pate MD Feb 06, 2017 15:16
[2017-02-06] MEDS: ENOXAPARIN SODIUM 30 MG/0.3 ML SYRINGE SQ SCH (16:47)
--- NOTE | 2017-02-06 18:58 | HHI.CCPN ---
Subjective Remarks/Hospital Course 66 y/o man has developed respiratory failure following a laparoscopic partial gastrectomy performed 01/17. He was brought to the [facility] where I met him on his arrival. Intubated for hypoxemic failure and lines placed. After 2 liters NS patient making > 40 ml/hr urine. Arrived in atrial fibrillation with rate 160s, converted after fluid, analgesia, and lopressor 5 mg X 1.Loaded with antibiotics. Family is aware. 01/25: Completion gastric resection and resuscitation. Urine output marginal but perfusion good. Tapering vasopressors. 01/26: Off all vasopressors. Tmax 100.4. Currently 100.2. Tolerating TPN. White cell count elevated 27,000. Arousable and follows commands on the ventilator. Subjective 01/27: Tmax 101.5. Pancultured including blood 2 from peripheral access and sputum. Added vancomycin. Arousable doesn't follow commands. Cultures sent from around surgical site. 01/28: Remains sedated, orally intubated on mechanical ventilation. 01/29: Remains sedated, orally intubated on mechanical ventilation. Remains febrile. 01/30: Remains sedated, orally intubated on mechanical ventilation. 01/31: Remains sedated, orally intubated on mechanical ventilation. Off TPN since 01/30. J-tube feeds being advanced to goal. Still febrile. Lipscomb cultures ordered. 02/01: Remains sedated, orally intubated on mechanical ventilation. Failing C Pap trials. Still having fevers. WBCs down to 11,000. 02/02: Remains sedated, orally intubated on mechanical ventilation. Tolerating J -tube feeds. Still having temperature spikes. 02/03: Sedated, arousable, orally intubated on mechanical ventilation. Tolerating J-tube feeds. Continues to have fever. Failing C Pap trials. 02/04: Sedated, arousable, orally intubated on mechanical ventilation. Tolerating J-tube feeds. Continues to have intermittent fevers. Failing C Pap trials. A.m. labs pending 02/05: Extubated on 02/04, requiring 50% Ventimask. Underwent CT chest abdomen pelvis which revealed presence of air-fluid level extraluminally including oral contrast extending into posterior mediastinum. 02/06: Patient was placed on BiPAP last night for worsening respiratory distress. He was intubated this morning as his respiratory effort was increasing as well as in view of concern for his anastomotic site with leak. I had a detailed discussion with patient's prior to proceeding with intubation and patient was placed on mechanical ventilation subsequently. I also placed a new left subclavian central line following intubation. Patient was subsequent only sedated with propofol. He was hypertensive prior to intubation with no episodes of hypotension noted. He was lucid and following commands prior to intubation. Right sided isidro drain continues to have cloudy greenish yellow purulent drainage. Objective Vital Signs Date Time Temp Pulse Resp B/P (MAP) Pulse Ox O2 Delivery O2 Flow Rate FiO2 02/06/17 18:21 94 50 02/06/17 16:00 99.1 63 16 113/53 (73) 02/06/17 07:00 Bi-Pap 15.00 Intake and Output 02/06/17 02/06/17 02/07/17 08:00 16:00 00:00 Intake Total 1291 ml Output Total 1125 ml Balance 166 ml Result Diagram: 02/06/17 0500 02/06/17 0500 Other Results Laboratory Tests Test 02/05/17 20:17 Blood Gas Puncture Site RT RADIAL Blood Gas Patient Temperature 98.6 Blood Gas HCO3 29 mmol/L (22-26) Blood Gas Base Excess 4.8 mmol/L (-2-2) Blood Gas Oxygen Saturation 97 % (90-100) Arterial Blood pH 7.42 (7.380-7.420) Arterial Blood Partial Pressure CO2 46 mmHg (38-42) Arterial Blood Partial Pressure O2 192 mmHg (61-120) Arterial Blood Oxygen Content 14.4 Vol % (12.0-20.0) Arterial Blood Carboxyhemoglobin 0.9 % (0-4) Arterial Blood Methemoglobin 1.0 % (0-2) Blood Gas Hemoglobin 10.2 G/DL (12.0-16.0) Oxygen Delivery Device Non-Rebreathing Mask Blood Gas Liter Flow 15 L/M Blood Gas Inspired Oxygen 100 % Imaging Last 48 hours Impressions Chest X-Ray 02/01/17 0600 Signed Impressions: Service Date/Time: January 05:12 - CONCLUSION: 1. Support apparatus in good position. Bilateral chest tubes without pneumothorax. Basal airspace disease. Jordan Lozano MD Chest X-Ray 02/01/17 0000 Signed Impressions: Service Date/Time: January 21:16 - CONCLUSION: 1. No pneumothorax or significant change following right chest tube removal. There is stable consolidation versus atelectasis in the right lower lung zone. 2. Left chest tube is present and no pneumothorax is visualized. There is stable left basilar opacity. Gonzales Ramsay MD Last Impressions Chest X-Ray 01/27/17 0600 Signed Impressions: Service Date/Time: Friday, January 27, 2017 04:22 - CONCLUSION: 1. Support apparatus in satisfactory position. Mild basilar airspace disease. No pneumothorax. Trace pleural fluid remains on the left. Jordan Lozano MD Chest Ultrasound 01/24/17 0000 Signed Impressions: Service Date/Time: Tuesday, January 24, 2017 11:13 - CONCLUSION: 1. Large left pleural effusion. Jayson Das MD Chest CT 01/23/17 0000 Signed Impressions: Service Date/Time: Monday, January 23, 2017 18:54 - CONCLUSION: 1. Moderate-sized bilateral pleural effusions. Right pleural effusion has several small areas of loculation as above. 2. Bilateral lower lobe consolidation. 3. Somewhat mass like fullness in the right infrahilar region. A contrast- enhanced CT of the chest is recommended, preferably after resolution of pleural effusions and bibasilar consolidation. Gonzales Pierre MD Upper GI/Barium Swallow X-Ray 01/22/17 0000 Signed Impressions: Service Date/Time: Sunday, January 22, 2017 12:29 - CONCLUSION: 1. Findings suspicious for a small leak at the gastroesophageal junction with contrast pooling into an air fluid collection adjacent to the GE junction and distal esophagus. There was an end to side anastomosis performed so it is possible, but felt unlikely, that the collection represents a portion of the proximal stomach. 2. Findings were discussed with Dr. Ritchie. Gonzales Ramsay MD Abdomen CT 01/22/17 0000 Signed Impressions: Service Date/Time: Sunday, January 22, 2017 17:12 - CONCLUSION: 1. There is an abnormal air and fluid collection located to the right of the GE junction adjacent to the proximal stomach. It extends into the posterior mediastinum. The current appearance and findings on fluoroscopy examination earlier today are indicative of a leak at the anastomosis. The current surgical drain is not directly adjacent to the collection and based on the location I do not think that we could place a drain in an appropriate location percutaneously. 2. Small bilateral pleural effusions with associated atelectasis and/or consolidation in both lower lobes. Gonzales Ramsay MD Objective Remarks Gen: 66-year-old male, critically ill currently orotracheally intubated with nasogastric tube right nares Head: NL. Atraumatic. Neck: No JVD Lungs: Orally intubated on mechanical ventilation. Decreased breath sounds both bases, scattered rhonchi bilaterally. Heart: NL S1S2, no murmur appreciated Abdomen: Mildly distended, soft. Post-surgical. Isidro drain on left/right. J- tube on left. Extremities: Warm, dry. We'll perfused Neuro: Sedated. Moves 4 limbs spontaneously. YESENIA. Line: Central Venous Catheter A/P Problem List: (1) Acute hypoxemic respiratory failure ICD Code: J96.01 - Acute respiratory failure with hypoxia Status: Acute (2) Primary adenocarcinoma of distal third of esophagus ICD Code: C15.5 - Malignant neoplasm of lower third of esophagus Status: Acute Assessment and Plan Neuro/Psych: Chronic Benzodiazepine use Chronic muscle relaxant use Reintubated on 02/06 and placed on propofol for sedation. Patient is on alprazolam 0.25 mg twice a day and diazepam 5 mill grams twice a day when necessary for anxiety at home. Patient is on Flexeril as needed muscle relaxant at home. CV: A. fib with RVR currently normal sinus rhythm History of hypertension History of dyslipidemia Holding home medications of amlodipine 5 mg twice a day and losartan 50 mg twice a day. TPN stopped 01/30. J-tube feeds advanced to goal. Not requiring vasopressors and/or anti-hypertensives at the current time. Started Lasix 40 mg IV daily on 02/03 to mobilize fluid-Will hold Lasix 02/06. Resp: Acute hypercapnic respiratory failure Bilateral pleural effusions Extubated on 02/04, required reintubation on 02/06 for worsening respiratory distress probably secondary to anastomotic leak. Continue mechanical ventilation, vent bundle. Scheduled due nebs every 6 hours with albuterol nebulizers every 2 hours. Right pigtail catheter removed on 02/01, left pigtail catheter removed by surgery 02/02 GI: 01/19 -cholecystectomy, proximal gastrectomy with GE junction anastomosis and Botox injection by Dr. Ritchie 01/24 - bilateral chest tubes/open subtotal gastrectomy and jejunostomy placement Gastroesophageal reflux disease Holding lansoprazole 30 mg by mouth daily. Currently on pantoprazole 40 mg IV daily Isidro tubes left/right. J-tube feeds at 50 cc an hour as tolerated. Discussed with Dr. Howard covering for Dr. Ritchie regarding CT findings from 02/04 showing extraluminal air in fluid with contrast extending into posterior mediastinum and greenish yellow cloudy purulent drainage from Isidro drain raising concern for anastomotic leak. He will discuss this with Dr. Ritchie to decide further surgical options. : Soto catheter for accurate I's and O's in a critically ill patient Endo: Sliding-scale insulin with Novolog every 4 hours/medium. Levemir 10 units twice a day Renal: Strict intake output, monitor and replete electro lites, follow BUN/creatinine. Heme: Leukocytosis Normocytic anemia Monitor CBC daily. Follow trends ID: Currently on Zosyn, added vancomycin 01/27. Added fluconazole 400mg daily on for mae from ANDREW drain. Stopped levaquin 02/01 All blood cultures negative so far.. Wound culture with mae. Lipscomb cultures sent on 01/31, 06/12 blood culture with GPC ? contaminant. Requested ID consult for antibiotic management in view of ongoing fevers with probable fungal peritonitis on 02/04. Noted ID evaluation. Discussed CT abdomen pelvis findings with ID and Dr. Howard from general surgery covering for Dr. Ritchie - discussed findings of air fluid level as well as extraluminal oral contrast adjacent to GE junction extending into posterior mediastinum with ID and subsequently with Dr. Howard. May require reexploration for drainage of collection and repair of anastomotic leak - Defer definitive management of the leak to general surgery. Remains on antibiotics per ID. FEN: Replace electrolytes as clinically indicated MSK: Range of motion Access - Right subclavian CVL 01/24, right upper extremity PICC placed 01/23 ( discontinue 02/01). Discontinued right radial arterial line 01/27 Prophylaxis - GI - pantoprazole - DVT - SCD/pharmacological prophylaxis when okay with surgery Updated patient's at bedside in detail and she voiced understanding and was agreeable with plan of care on 02/01. In view of findings of CT abdomen pelvis with ongoing leak, consider palliative care consult if no plans for surgical intervention as prognosis is extremely guarded and patient at high risk of decompensating despite antibiotics. Luc Pate MD Feb 06, 2017 18:58
--- NOTE | 2017-02-06 19:02 | PD.PROCEDR ---
Central Line Procedure REASON FOR PROCEDURE Central venous access PROCEDURE PERFORMED Central line placement: Left subclavian vein CONSENT Informed consent for procedure was obtained from patient's and documented on chart. ANESTHESIA Local injection of 1% Lidocaine DESCRIPTION OF THE PROCEDURE The patient was placed in supine, mild Trendelenburg position. The area was exposed and cleansed with ChloraPrep, times two. Large sterile drape was used to cover the patient, with the site exposed, under sterile conditions including cap, face mask, sterile gown, and sterile gloves. On single attempt, the introducer needle was inserted with negative pressure in syringe and venous flash was obtained. The guide wire was then advanced without any restriction and the needle was removed. The dilator was used without any complications. Using Seldinger technique a 20 cm antimicrobial coated triple lumen catheter was advanced over the guide wire to a depth of 17 centimeters. The guide wire was removed. All ports were aspirated with dark venous blood return and flushed easily with sterile saline. All ports were capped. Antibiotic disc was placed around central line at puncture site. The central line was secured to the skin with a stat lock, the area was bandaged with sterile see-through central line bandage. COMPLICATIONS: No apparent complications ESTIMATED BLOOD LOSS: Less than 1 cc. Luc Pate MD Feb 06, 2017 19:02
--- NOTE | 2017-02-06 19:04 | PD.PROCEDR ---
Procedure Note Procedure Procedure: Endotracheal intubation Preop diagnosis: Acute respiratory failure, severe sepsis, suspected anastomotic leak Postop diagnosis: Same Sedation used: Etomidate 25 mg, fentanyl 200 mcg, rocuronium 50 mg IV Procedure: Patient was preoxygenated with 100% oxygen via Ambu bag with bag mask ventilation, following induction of sedation and neuromuscular blockade, direct laryngoscopy was performed using a Mac 4 blade with good visualization of vocal cords. An 8 Setswana ET tube was passed through the vocal cords under direct visualization up to the 24 centimeter maico and after inflating cuff of ET tube, correct placement was confirmed using bagging with good color change on CO2 detector, 5 point auscultation and chest rise with ventilation. Patient was connected to mechanical ventilation. Patient tolerated the procedure well with no immediate complications noted. Postprocedure chest x-ray was ordered. Luc Pate MD Feb 06, 2017 19:04
[2017-02-06] MEDS: PANTOPRAZOLE SODIUM 40 MG VIAL IV SCH (19:52)
[2017-02-06 20:15] LABS: BLOOD GAS BASE EXCESS 5.6 mmol/L (-2-2); BLOOD GAS HCO3 29 mmol/L (22-26); BLOOD GAS O2 HGB SATURATION 94 % (90-100); BLOOD GAS OXYGEN CONTENT 16.9 Vol % (12.0-20.0); BLOOD GAS PCO2 39 mmHg (38-42); BLOOD GAS PO2 75 mmHg (61-120); BLOOD GAS TOTAL HGB 12.8 G/DL (12.0-16.0); TEMP CORR TO 98.6
[2017-02-06 20:16] LABS: CRITICAL VALUE NO; OXYGEN DEVICE VENTILATOR
[2017-02-06 20:17] LABS: DRAW SITE RT RADIAL; FIO2 50 %; NUMBER OF ARTERIAL PUNCTURES 1; STAT NO; ULNAR PULSE PRESENT; VENT SETTINGS PRVC/AC
[2017-02-06] MEDS: fentaNYL DRIP 250 ML IV PRN (21:04)
[2017-02-06] MEDS: PROPOFOL 1000 MG/100 ML INJ 100 ML IV SCH (21:05)
[2017-02-07] VITALS (18 sets, daily range): BP systolic 115–182; BP diastolic 57–76; PULSE 58–90; RESP 16–17; TEMP 98.6–100; O2SAT 94–100
[2017-02-07] MEDS: PROPOFOL 1000 MG/100 ML INJ 100 ML IV SCH ×6 (00:13→18:22)
[2017-02-07] MEDS: RESP: ALBUTEROL 2.5 MG/IPRATROPIUM 0.5 MG NEB (SCH) NEB ×4 (03:19→19:45)
[2017-02-07] MEDS: PIPERACIL-TAZO 4.5 GM PREMIX 100 ML IV SCH ×4 (03:37→21:30)
[2017-02-07] MEDS: INSULIN ASPART SUPPLEMENTAL SCALE SQ SCH ×6 (04:00→20:00)
[2017-02-07] MEDS: LABETALOL HCL 100 MG/20 ML VIAL IV PUSH PRN ×2 (04:28→13:54)
[2017-02-07] MEDS: fentaNYL DRIP 250 ML IV PRN ×2 (07:59→18:49)
[2017-02-07] MEDS: CHLORHEXIDINE 0.12% (ORAL KIT) 15 ML CUP MT SCH ×2 (08:00→21:29)
[2017-02-07] MEDS: SODIUM CHLORIDE 0.9% FLUSH 10 ML FLUSH IV FLUSH SCH ×3 (08:56→21:29)
[2017-02-07] MEDS: INSULIN DETEMIR 100 UNITS/ML VIAL SQ SCH ×2 (09:00→21:00)
[2017-02-07] MEDS ORDERED: PHARMACY ORDERED LAB ONE (09:45)
[2017-02-07] MEDS: FUROSEMIDE 40 MG/4 ML VIAL IV PUSH SCH (09:59)
[2017-02-07] MEDS: FLUCONAZOLE 400 MG PREMIX BAG 200 ML IV SCH (10:00)
[2017-02-07] MEDS: VANCOMYCIN INJ 2,000 MG in SODIUM CHLORID 0.9% 500 ML INJ 500 ML IV SCH ×2 (10:00→21:30)
--- NOTE | 2017-02-07 13:22 | HHI.CCPN ---
Subjective Remarks/Hospital Course 66 y/o man has developed respiratory failure following a laparoscopic partial gastrectomy performed 01/17. He was brought to the [facility] where I met him on his arrival. Intubated for hypoxemic failure and lines placed. After 2 liters NS patient making > 40 ml/hr urine. Arrived in atrial fibrillation with rate 160s, converted after fluid, analgesia, and lopressor 5 mg X 1.Loaded with antibiotics. Family is aware. 01/25: Completion gastric resection and resuscitation. Urine output marginal but perfusion good. Tapering vasopressors. 01/26: Off all vasopressors. Tmax 100.4. Currently 100.2. Tolerating TPN. White cell count elevated 27,000. Arousable and follows commands on the ventilator. Subjective 01/27: Tmax 101.5. Pancultured including blood 2 from peripheral access and sputum. Added vancomycin. Arousable doesn't follow commands. Cultures sent from around surgical site. 01/28: Remains sedated, orally intubated on mechanical ventilation. 01/29: Remains sedated, orally intubated on mechanical ventilation. Remains febrile. 01/30: Remains sedated, orally intubated on mechanical ventilation. 01/31: Remains sedated, orally intubated on mechanical ventilation. Off TPN since 01/30. J-tube feeds being advanced to goal. Still febrile. Lipscomb cultures ordered. 02/01: Remains sedated, orally intubated on mechanical ventilation. Failing C Pap trials. Still having fevers. WBCs down to 11,000. 02/02: Remains sedated, orally intubated on mechanical ventilation. Tolerating J -tube feeds. Still having temperature spikes. 02/03: Sedated, arousable, orally intubated on mechanical ventilation. Tolerating J-tube feeds. Continues to have fever. Failing C Pap trials. 02/04: Sedated, arousable, orally intubated on mechanical ventilation. Tolerating J-tube feeds. Continues to have intermittent fevers. Failing C Pap trials. A.m. labs pending 02/05: Extubated on 02/04, requiring 50% Ventimask. Underwent CT chest abdomen pelvis which revealed presence of air-fluid level extraluminally including oral contrast extending into posterior mediastinum. 02/06: Patient was placed on BiPAP last night for worsening respiratory distress. He was intubated this morning as his respiratory effort was increasing as well as in view of concern for his anastomotic site with leak. I had a detailed discussion with patient's prior to proceeding with intubation and patient was placed on mechanical ventilation subsequently. I also placed a new left subclavian central line following intubation. Patient was subsequent only sedated with propofol. He was hypertensive prior to intubation with no episodes of hypotension noted. He was lucid and following commands prior to intubation. Right sided isidro drain continues to have cloudy greenish yellow purulent drainage. 02/07: Comfortable and well oxygenated on PRVC vent mode. Care plan has been explained to spouse. Objective Vital Signs Date Time Temp Pulse Resp B/P (MAP) Pulse Ox O2 Delivery O2 Flow Rate FiO2 02/07/17 12:02 96 40 02/07/17 07:00 Mechanical Ventilator 02/07/17 06:00 58 02/07/17 04:00 100.0 16 182/76 (111) 02/06/17 07:00 15.00 Intake and Output 02/07/17 02/07/17 02/07/17 07:59 15:59 23:59 Intake Total 2400 ml 118 ml Output Total 865 ml Balance 1535 ml 118 ml Result Diagram: 02/06/17 0500 02/07/17 0505 Other Results Microbiology Date/Time Source Procedure Growth Status 02/04/17 17:00 Wound Abdomen Gram Stain - Final Complete 02/04/17 17:00 Wound Culture - Final Mae Albicans Complete Laboratory Tests Test 02/06/17 20:00 Blood Gas Puncture Site RT RADIAL Blood Gas Patient Temperature 98.6 Blood Gas HCO3 29 mmol/L (22-26) Blood Gas Base Excess 5.6 mmol/L (-2-2) Blood Gas Oxygen Saturation 94 % (90-100) Arterial Blood pH 7.49 (7.380-7.420) Arterial Blood Partial Pressure CO2 39 mmHg (38-42) Arterial Blood Partial Pressure O2 75 mmHg (61-120) Arterial Blood Oxygen Content 16.9 Vol % (12.0-20.0) Arterial Blood Carboxyhemoglobin 1.0 % (0-4) Arterial Blood Methemoglobin 1.0 % (0-2) Blood Gas Hemoglobin 12.8 G/DL (12.0-16.0) Oxygen Delivery Device VENTILATOR Blood Gas Ventilator Setting PRVC/AC Blood Gas Inspired Oxygen 50 % Imaging Last 48 hours Impressions Chest X-Ray 02/01/17 0600 Signed Impressions: Service Date/Time: January 05:12 - CONCLUSION: 1. Support apparatus in good position. Bilateral chest tubes without pneumothorax. Basal airspace disease. Jordan Lozano MD Chest X-Ray 02/01/17 0000 Signed Impressions: Service Date/Time: January 21:16 - CONCLUSION: 1. No pneumothorax or significant change following right chest tube removal. There is stable consolidation versus atelectasis in the right lower lung zone. 2. Left chest tube is present and no pneumothorax is visualized. There is stable left basilar opacity. Gonzales Ramsay MD Last Impressions Chest X-Ray 01/27/17 0600 Signed Impressions: Service Date/Time: Friday, January 27, 2017 04:22 - CONCLUSION: 1. Support apparatus in satisfactory position. Mild basilar airspace disease. No pneumothorax. Trace pleural fluid remains on the left. Jordan Lozano MD Chest Ultrasound 01/24/17 0000 Signed Impressions: Service Date/Time: Tuesday, January 24, 2017 11:13 - CONCLUSION: 1. Large left pleural effusion. Jayson Das MD Chest CT 01/23/17 0000 Signed Impressions: Service Date/Time: Monday, January 23, 2017 18:54 - CONCLUSION: 1. Moderate-sized bilateral pleural effusions. Right pleural effusion has several small areas of loculation as above. 2. Bilateral lower lobe consolidation. 3. Somewhat mass like fullness in the right infrahilar region. A contrast- enhanced CT of the chest is recommended, preferably after resolution of pleural effusions and bibasilar consolidation. Gonzales Pierre MD Upper GI/Barium Swallow X-Ray 01/22/17 0000 Signed Impressions: Service Date/Time: Sunday, January 22, 2017 12:29 - CONCLUSION: 1. Findings suspicious for a small leak at the gastroesophageal junction with contrast pooling into an air fluid collection adjacent to the GE junction and distal esophagus. There was an end to side anastomosis performed so it is possible, but felt unlikely, that the collection represents a portion of the proximal stomach. 2. Findings were discussed with Dr. Ritchie. Gonzales Ramsay MD Abdomen CT 01/22/17 0000 Signed Impressions: Service Date/Time: Sunday, January 22, 2017 17:12 - CONCLUSION: 1. There is an abnormal air and fluid collection located to the right of the GE junction adjacent to the proximal stomach. It extends into the posterior mediastinum. The current appearance and findings on fluoroscopy examination earlier today are indicative of a leak at the anastomosis. The current surgical drain is not directly adjacent to the collection and based on the location I do not think that we could place a drain in an appropriate location percutaneously. 2. Small bilateral pleural effusions with associated atelectasis and/or consolidation in both lower lobes. Gonzales Ramsay MD Objective Remarks Gen: 66-year-old male, critically ill currently orotracheally intubated with nasogastric tube right nares Head: NL. Atraumatic. Neck: Orally intubated. Lungs: Mechanical ventilation. Decreased breath sounds both bases, few rhonchi bilaterally. Heart: NL S1S2, no murmur appreciated Abdomen: Mildly distended, soft. Post-surgical. Isidro drain on left/right. J- tube on left. Extremities: Warm, dry. We'll perfused Neuro: Sedated. Moves 4 limbs spontaneously. YESENIA. Tracks with eyes, nodes head to questions. Line: Central Venous Catheter A/P Problem List: (1) Acute hypoxemic respiratory failure ICD Code: J96.01 - Acute respiratory failure with hypoxia Status: Acute (2) Primary adenocarcinoma of distal third of esophagus ICD Code: C15.5 - Malignant neoplasm of lower third of esophagus Status: Acute Assessment and Plan Neuro/Psych: Chronic Benzodiazepine use Chronic muscle relaxant use Reintubated on 02/06 and placed on propofol for sedation. Patient is on alprazolam 0.25 mg twice a day and diazepam 5 mill grams twice a day when necessary for anxiety at home. Patient is on Flexeril as needed muscle relaxant at home. CV: A. fib with RVR currently normal sinus rhythm History of hypertension History of dyslipidemia Holding home medications of amlodipine 5 mg twice a day and losartan 50 mg twice a day. TPN stopped 01/30. J-tube feeds advanced to goal. Not requiring vasopressors and/or anti-hypertensives at the current time. Started Lasix 40 mg IV daily on 02/03 to mobilize fluid-Will hold Lasix 02/06. Resp: Acute hypercapnic respiratory failure Bilateral pleural effusions Extubated on 02/04, required reintubation on 02/06 for worsening respiratory distress probably secondary to anastomotic leak. Continue mechanical ventilation, vent bundle. Scheduled due nebs every 6 hours with albuterol nebulizers every 2 hours. Right pigtail catheter removed on 02/01, left pigtail catheter removed by surgery 02/02 GI: 01/19 -cholecystectomy, proximal gastrectomy with GE junction anastomosis and Botox injection by Dr. Ritchie 01/24 - bilateral chest tubes/open subtotal gastrectomy and jejunostomy placement Gastroesophageal reflux disease Holding lansoprazole 30 mg by mouth daily. Currently on pantoprazole 40 mg IV daily Isidro tubes left/right. J-tube feeds at 50 cc an hour as tolerated. Discussed with Dr. Howard covering for Dr. Ritchie regarding CT findings from 02/04 showing extraluminal air in fluid with contrast extending into posterior mediastinum and greenish yellow cloudy purulent drainage from Isidro drain raising concern for anastomotic leak. He will discuss this with Dr. Ritchie to decide further surgical options -> conservative Rx for now. : Soto catheter for accurate I's and O's in a critically ill patient Endo: Sliding-scale insulin with Novolog every 4 hours/medium. Levemir 10 units twice a day Renal: Strict intake output, monitor and replete electro lites, follow BUN/creatinine. Heme: Leukocytosis Normocytic anemia Monitor CBC daily. Follow trends ID: Currently on Zosyn, added vancomycin 01/27. Added fluconazole 400mg daily on for mae from ANDREW drain. Stopped levaquin 02/01 All blood cultures negative so far.. Wound culture with mae. Lipscomb cultures sent on 01/31, 06/12 blood culture with GPC ? contaminant. Requested ID consult for antibiotic management in view of ongoing fevers with probable fungal peritonitis on 02/04. Noted ID evaluation. Discussed CT abdomen pelvis findings with ID and Dr. Howard from general surgery covering for Dr. Ritchie - discussed findings of air fluid level as well as extraluminal oral contrast adjacent to GE junction extending into posterior mediastinum with ID and subsequently with Dr. Howard. May require reexploration for drainage of collection and repair of anastomotic leak - Defer definitive management of the leak to general surgery. Remains on antibiotics per ID. FEN: Replace electrolytes as clinically indicated MSK: Range of motion Access - Right subclavian CVL 01/24, right upper extremity PICC placed 01/23 ( discontinue 02/01). Discontinued right radial arterial line 01/27 Prophylaxis - GI - pantoprazole - DVT - SCD/pharmacological prophylaxis when okay with surgery Overall impression: Critically ill. Nutrition and infection control will be the mainstays of treatment for now. Pk Romero MD Feb 07, 2017 13:21
[2017-02-07] MEDS: ENOXAPARIN SODIUM 30 MG/0.3 ML SYRINGE SQ SCH (16:30)
--- NOTE | 2017-02-07 17:25 | HHI.PR ---
Subjective Subjective Notes intubated Objective Vitals/I&O Vital Signs Date Time Temp Pulse Resp B/P (MAP) Pulse Ox O2 Delivery O2 Flow Rate FiO2 02/07/17 14:55 94 40 02/07/17 14:00 70 02/07/17 12:00 99.0 16 174/75 (108) 02/07/17 07:00 Mechanical Ventilator 02/06/17 07:00 15.00 Labs Laboratory Tests Test 02/06/17 20:00 02/07/17 05:05 02/07/17 10:40 Blood Gas Puncture Site RT RADIAL Blood Gas Patient Temperature 98.6 Blood Gas HCO3 29 Blood Gas Base Excess 5.6 Blood Gas Oxygen Saturation 94 Arterial Blood pH 7.49 Arterial Blood Partial Pressure CO2 39 Arterial Blood Partial Pressure O2 75 Arterial Blood Oxygen Content 16.9 Arterial Blood Carboxyhemoglobin 1.0 Arterial Blood Methemoglobin 1.0 Blood Gas Hemoglobin 12.8 Oxygen Delivery Device VENTILATOR Blood Gas Ventilator Setting PRVC/AC Blood Gas Inspired Oxygen 50 Creatinine 0.37 Estimat Glomerular Filtration Rate 237 Vancomycin Level Trough 18.4 Date/Time Source Procedure Growth Status 02/07/17 05:00 Blood Peripheral Aerobic Blood Culture Pending Received 02/07/17 05:00 Blood Peripheral Anaerobic Blood Culture Pending Received 02/06/17 09:30 Sputum Endotracheal Gram Stain - Final Resulted 02/06/17 09:30 Sputum Endotracheal Sputum Culture - Preliminary RARE GROWTH NORMAL RESPIRATORY DEMARCUS ... Resulted 01/27/17 08:00 Urine Catheterized Urine Urine Culture - Final NO GROWTH IN 48 HOURS. Complete 02/04/17 17:00 Wound Abdomen Gram Stain - Final Complete 02/04/17 17:00 Wound Culture - Final Saida Albicans Complete Radiology Last Impressions Chest X-Ray 01/27/17 0600 Signed Impressions: Service Date/Time: Friday, January 27, 2017 04:22 - CONCLUSION: 1. Support apparatus in satisfactory position. Mild basilar airspace disease. No pneumothorax. Trace pleural fluid remains on the left. Jordan Lozano MD Lower Extremity Ultrasound 01/27/17 0000 Signed Impressions: Service Date/Time: Friday, January 27, 2017 12:49 - CONCLUSION: No DVT in either lower extremity. Elijah Funes MD Chest Ultrasound 01/24/17 0000 Signed Impressions: Service Date/Time: Tuesday, January 24, 2017 11:13 - CONCLUSION: 1. Large left pleural effusion. Jayson Das MD Chest CT 01/23/17 0000 Signed Impressions: Service Date/Time: Monday, January 23, 2017 18:54 - CONCLUSION: 1. Moderate-sized bilateral pleural effusions. Right pleural effusion has several small areas of loculation as above. 2. Bilateral lower lobe consolidation. 3. Somewhat mass like fullness in the right infrahilar region. A contrast- enhanced CT of the chest is recommended, preferably after resolution of pleural effusions and bibasilar consolidation. Gonzales Pierre MD Upper GI/Barium Swallow X-Ray 01/22/17 0000 Signed Impressions: Service Date/Time: Sunday, January 22, 2017 12:29 - CONCLUSION: 1. Findings suspicious for a small leak at the gastroesophageal junction with contrast pooling into an air fluid collection adjacent to the GE junction and distal esophagus. There was an end to side anastomosis performed so it is possible, but felt unlikely, that the collection represents a portion of the proximal stomach. 2. Findings were discussed with Dr. Ritchie. Gonzales Ramsay MD Abdomen CT 01/22/17 0000 Signed Impressions: Service Date/Time: Sunday, January 22, 2017 17:12 - CONCLUSION: 1. There is an abnormal air and fluid collection located to the right of the GE junction adjacent to the proximal stomach. It extends into the posterior mediastinum. The current appearance and findings on fluoroscopy examination earlier today are indicative of a leak at the anastomosis. The current surgical drain is not directly adjacent to the collection and based on the location I do not think that we could place a drain in an appropriate location percutaneously. 2. Small bilateral pleural effusions with associated atelectasis and/or consolidation in both lower lobes. Gonzales Ramsay MD Lungs: Upper airway course sound Abdomen: Non-distended, Non-tender A/P Problem List: (1) Primary adenocarcinoma of distal third of esophagus ICD Codes: C15.5 - Malignant neoplasm of lower third of esophagus Status: Acute (2) Atrial fibrillation with RVR ICD Codes: I48.91 - Unspecified atrial fibrillation Status: Acute (3) Acute hypoxemic respiratory failure ICD Codes: J96.01 - Acute respiratory failure with hypoxia Status: Acute (4) Gastric adenocarcinoma ICD Codes: C16.9 - Malignant neoplasm of stomach, unspecified Status: Acute Assessment and Plan 66 year old male s/p laparoscopic gastrectomy and cholecystectomy with Botox injection, s/p bilateral thoracostomy tube placement; open subtotal gastrectomy ; jejunostomy tube placement -NGT to LIWS -tolerating tube feeds -Tolerating tube feeds via J tube- 60cc/hr, held for extubation -small leak/fistulae, GI consulted for consideration of esophageal stent -Continue ANDREW management to bulb suction -Bilateral chest tubes removed -Appreciate Language Path/ID consults Josh Ritchie MD Feb 07, 2017 17:25
--- NOTE | 2017-02-07 17:42 | HHI.IDPN ---
Subjective Subjective Remarks Mr. 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 He was staged at a T1a,Nx based on EUS, CT thorax/Abd/pelvis and PET scan. Pt follows with Dr. Nickolas Luna for Oncology. He was admitted to [facility] on 01/17/17 for Laparoscopic gastrectomy and cholecystectomy with Botox injection with Dr. Ritchie. Patient was later being followed by hospitalist team and postoperatively he was hypoxic in the low 80s and due to ongoing concern for worsening infection patient was eventually taken to the OR on January 24, 2017. He underwent bilateral chest tube placement, also underwent open subtotal gastrectomy(70% of the stomach was removed per OR notes). Intraoperatively there was an anastomotic leak as well as mild adhesions and a small pocket of infection noted. 2 ANDREW drains were left in place and patient underwent revision of the gastroesophageal anastomosis. Patient underwent placement of a jejunostomy in the NG tube. After this he seemed to be doing okay but on January 27 he started spiking temperatures of 101 with a WBC count of 27.9. On January 31 patient again spiked another temperature on 101 while on IV antibiotics and his WBC increased to 18.1 he was pancultured on January 27 and again underwent further cultures testing on January 31. Postoperatively it appears that patient has been intubated in the ICU. He got extubated only today on February 04, 2017. He has a Soto that was placed on January 24, 2017. He has a triple lumen catheter which was placed on January 31, 2017. He additionally had a PICC line was placed on January 23 which has now been discontinued. At the time of my evaluation patient is in ISC extubated a few hours back and seems to be doing fairly okay. He often gets a little agitated and is mumbling to himself. He has fairly okay urine output. He has diarrhea and C. difficile test has been sent. I examined the wound with Dr. Ritchie and it appears that the bottom few stitches appear erythematous and one of them had very minimal specks of discharge. Dr. Ritchie removed these sutures and drained the minimal purulent material and this was sent for cultures. Staphylococcus Warneri was identified from one of the 4 cultures. Patient is currently on vancomycin repeat cultures were ordered by me today. Patient has a ANDREW drain which has grayish white drainage noted large amounts. Reportedly the fluid was initially clear and now has turned the grayish white color. Infectious disease is consulted for evaluation and management of sepsis and a postop patient. Overnight events reviewed. Remains intubated. Low grade fevers. Not on pressors. UO good. Not much resp secretions. Diarrhea but Cdiff negative. No rash No diarrhea Antibiotics Zosyn IV Vanco IV Fluconazole IV Lines Line sites with no e.o infection. Past Medical History reviewed. Allergies: Coded Allergies: amlodipine (Unverified Allergy, Severe, MUSCLE PAIN, 01/23/17) atorvastatin (Unverified Allergy, Severe, MUSCLE PAIN, 01/23/17) pravastatin (Unverified Allergy, Severe, MUSCLE PAIN, 01/23/17) simvastatin (Unverified Allergy, Severe, MUSCLE PAIN, 01/23/17) Objective . Vital Signs Date Time Temp Pulse Resp B/P (MAP) Pulse Ox O2 Delivery O2 Flow Rate FiO2 02/07/17 16:00 60 02/07/17 16:00 98.6 60 17 115/57 (76) 97 02/07/17 16:00 50 02/07/17 14:55 94 40 02/07/17 14:00 70 02/07/17 12:02 96 40 02/07/17 12:00 99.0 74 16 174/75 (108) 97 02/07/17 12:00 74 02/07/17 12:00 50 02/07/17 10:00 72 02/07/17 08:00 72 02/07/17 08:00 99.3 72 16 168/72 (104) 100 02/07/17 07:57 100 40 02/07/17 07:22 50 02/07/17 07:00 97 Mechanical Ventilator 50 02/07/17 06:00 58 02/07/17 04:10 98 50 02/07/17 04:00 100.0 90 16 182/76 (111) 98 02/07/17 04:00 90 02/07/17 02:00 76 02/07/17 01:10 98 50 02/07/17 00:00 70 02/07/17 00:00 99.7 70 16 129/60 (83) 96 02/06/17 22:00 88 02/06/17 21:05 94 50 02/06/17 20:00 84 02/06/17 20:00 99.7 84 17 168/73 (104) 93 02/06/17 19:00 94 Mechanical Ventilator 50 02/06/17 18:21 94 50 02/06/17 18:00 77 02/07/17 02/07/17 02/08/17 15:00 23:00 07:00 Intake Total 118 ml Balance 118 ml IV Total 118 ml . Laboratory Tests Test 02/06/17 05:00 White Blood Count 12.4 TH/MM3 Red Blood Count 3.04 MIL/MM3 Hemoglobin 9.2 GM/DL Hematocrit 28.4 % Mean Corpuscular Volume 93.4 FL Mean Corpuscular Hemoglobin 30.3 PG Mean Corpuscular Hemoglobin Concent 32.5 % Red Cell Distribution Width 13.0 % Platelet Count 515 TH/MM3 Mean Platelet Volume 7.7 FL Neutrophils (%) (Auto) 83.1 % Lymphocytes (%) (Auto) 8.8 % Monocytes (%) (Auto) 7.9 % Eosinophils (%) (Auto) 0.0 % Basophils (%) (Auto) 0.2 % Neutrophils # (Auto) 10.3 TH/MM3 Lymphocytes # (Auto) 1.1 TH/MM3 Monocytes # (Auto) 1.0 TH/MM3 Eosinophils # (Auto) 0.0 TH/MM3 Basophils # (Auto) 0.0 TH/MM3 CBC Comment DIFF FINAL Differential Comment Laboratory Tests Test 02/06/17 05:00 02/06/17 08:45 02/07/17 05:05 Blood Urea Nitrogen 13 MG/DL Creatinine 0.51 MG/DL 0.37 MG/DL Random Glucose 107 MG/DL Total Protein 7.1 GM/DL Albumin 1.4 GM/DL Calcium Level 7.8 MG/DL Alkaline Phosphatase 142 U/L Aspartate Amino Transf (AST/SGOT) 34 U/L Alanine Aminotransferase (ALT/SGPT) 30 U/L Total Bilirubin 0.3 MG/DL Sodium Level 147 MEQ/L Potassium Level 3.3 MEQ/L Chloride Level 112 MEQ/L Carbon Dioxide Level 29.5 MEQ/L Anion Gap 6 MEQ/L Estimat Glomerular Filtration Rate 164 ML/MIN 237 ML/MIN Lactic Acid Level 1.1 mmol/L Microbiology Date/Time Source Procedure Growth Status 02/07/17 05:00 Blood Peripheral Aerobic Blood Culture Pending Received 02/07/17 05:00 Blood Peripheral Anaerobic Blood Culture Pending Received 02/07/17 04:55 Blood Peripheral Aerobic Blood Culture Pending Received 02/07/17 04:55 Blood Peripheral Anaerobic Blood Culture Pending Received 02/06/17 09:15 Blood Line Aerobic Blood Culture - Preliminary NO GROWTH IN 1 DAY Resulted 02/06/17 09:15 Blood Line Anaerobic Blood Culture - Preliminary NO GROWTH IN 1 DAY Resulted 02/05/17 12:00 Blood Line Aerobic Blood Culture - Preliminary NO GROWTH IN 2 DAYS Resulted 02/05/17 12:00 Blood Line Anaerobic Blood Culture - Preliminary NO GROWTH IN 2 DAYS Resulted 02/04/17 20:10 Blood Peripheral Aerobic Blood Culture - Preliminary NO GROWTH IN 3 DAYS Resulted 02/04/17 20:10 Blood Peripheral Anaerobic Blood Culture - Preliminary NO GROWTH IN 3 DAYS Resulted 02/04/17 20:05 Blood Peripheral Aerobic Blood Culture - Preliminary NO GROWTH IN 3 DAYS Resulted 02/04/17 20:05 Blood Peripheral Anaerobic Blood Culture - Preliminary NO GROWTH IN 3 DAYS Resulted 02/06/17 09:30 Sputum Endotracheal Gram Stain - Final Resulted 02/06/17 09:30 Sputum Endotracheal Sputum Culture - Preliminary RARE GROWTH NORMAL RESPIRATORY DEMARCUS ... Resulted Imaging Last Impressions Chest X-Ray 02/06/17 0600 Signed Impressions: Service Date/Time: Monday, February 06, 2017 04:30 - CONCLUSION: Stable chest x-ray with small left pleural effusion and bilateral interstitial and airspace opacities. Gonzales Ramsay MD Chest CT 02/04/17 0000 Signed Impressions: Service Date/Time: Saturday, February 04, 2017 23:18 - CONCLUSION: 1. Small bilateral pleural effusions, decreased in volume from the prior study with adjacent compressive atelectasis in the lower lobes and possible consolidation. 2. Mediastinal and bilateral hilar lymphadenopathy. 3. Please refer to abdomen and pelvis CT report for description of the subdiaphragmatic findings. Gonzales Ramsay MD Abdomen/Pelvis CT 02/04/17 0000 Signed Impressions: Service Date/Time: Saturday, February 04, 2017 23:18 - CONCLUSION: 1. No abscess is visualized, as questioned. However, there continues to be a small amount of fluid and air that appears extraluminal and located adjacent to the proximal stomach and extending into the posterior mediastinum adjacent to the distal esophagus. The right subhepatic drain is located near a portion of the fluid collection. There is also trace free fluid in the pelvis. 2. Anasarca. 3. Please refer to chest CT report for description of the supradiaphragmatic findings. Gonzales Ramsay MD Lower Extremity Ultrasound 01/27/17 0000 Signed Impressions: Service Date/Time: Friday, January 27, 2017 12:49 - CONCLUSION: No DVT in either lower extremity. Elijah Funes MD Chest Ultrasound 01/24/17 0000 Signed Impressions: Service Date/Time: Tuesday, January 24, 2017 11:13 - CONCLUSION: 1. Large left pleural effusion. Jayson Das MD Upper GI/Barium Swallow X-Ray 01/22/17 0000 Signed Impressions: Service Date/Time: Sunday, January 22, 2017 12:29 - CONCLUSION: 1. Findings suspicious for a small leak at the gastroesophageal junction with contrast pooling into an air fluid collection adjacent to the GE junction and distal esophagus. There was an end to side anastomosis performed so it is possible, but felt unlikely, that the collection represents a portion of the proximal stomach. 2. Findings were discussed with Dr. Ritchie. Gonzales Ramsay MD Abdomen CT 01/22/17 0000 Signed Impressions: Service Date/Time: Sunday, January 22, 2017 17:12 - CONCLUSION: 1. There is an abnormal air and fluid collection located to the right of the GE junction adjacent to the proximal stomach. It extends into the posterior mediastinum. The current appearance and findings on fluoroscopy examination earlier today are indicative of a leak at the anastomosis. The current surgical drain is not directly adjacent to the collection and based on the location I do not think that we could place a drain in an appropriate location percutaneously. 2. Small bilateral pleural effusions with associated atelectasis and/or consolidation in both lower lobes. Gonzales Ramsay MD Physical Exam GENERAL: This is a well-nourished, well-developed patient, in no apparent distress. SKIN: No rashes, ecchymoses or lesions. Cool and dry. HEAD: Atraumatic. Normocephalic. No temporal or scalp tenderness. EYES: Pupils equal round and reactive. Extraocular motions intact. No scleral icterus. No injection or drainage. ENT: Nose without bleeding, purulent drainage or septal hematoma. Throat without erythema, tonsillar hypertrophy or exudate. Uvula midline. Airway patent. NECK: Trachea midline. Supple, nontender, no meningeal signs. CARDIOVASCULAR: Regular rate and rhythm without murmurs, gallops, or rubs. RESPIRATORY: Clear to auscultation. Breath sounds equal bilaterally. No wheezes , rales, or rhonchi. GASTROINTESTINAL: Midline surgical site with lower 2-3 sutures that looked erythematous and drying up at lower end. ANDREW drain with grayish white fluid in the drain. MUSCULOSKELETAL: Extremities without clubbing, cyanosis. Pedal edema noted. No joint tenderness, effusion, or edema noted. No calf tenderness. Negative Homans sign bilaterally. NEUROLOGICAL: Awake and alert. Grossly non focal Psych: cooperative IV line sites with no e.o infection. 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 He was staged at a T1a,Nx based on EUS. January 17, 2017 status post lap cholecystectomy, lap partial gastrectomy with Esophageal gastrointestinal anastomosis and Botox injection in the esophagus. January 24, 2017 bilateral chest tube placement for pleural effusions, open subtotal gastrectomy with gastric conduit formation, GE anastomosis, jejunostomy and feeding tube placement. Intra-abdominal abscess likely secondary to anastomotic leak Acute mediastinitis, possible mediastinal abscess. Due to persistent fevers as well as change in the drain fluid to white quiroz color there is a concern for ongoing fungal infection. Patient temps seem to have defervesced after addition of Diflucan. C.Albicans from wound site ? SSI. Recommendations Continue Zosyn IV Continue Vanco IV Continue Diflucan IV Culture wound from Surgical site: C.albicans Follow Stool Cdiff test negative Follow cultures Follow clinically Follow imaging. D,w RN and [facility] MD Kurtz. D/w family in room. d/w : recommend repeat imaging in view of change in clinical condition and reintubation. CXR worse but ? fluid overload related. Not much resp secretions. Concern for mediastinal abscess and ongoing leak. He recommends following patient clinically at this point for worsening sepsis, or resp change. Repeat CT if these changes in clinical condition noted. No surgical plans at present time. D.w again at rounds at 6 pm: he is considering GI consult for stent placement. Kaia Pate MD Feb 07, 2017 17:42
[2017-02-07] MEDS: PANTOPRAZOLE SODIUM 40 MG VIAL IV SCH (18:21)
[2017-02-08] VITALS (19 sets, daily range): BP systolic 133–196; BP diastolic 63–84; PULSE 56–81; RESP 12–19; TEMP 99–99.7; O2SAT 96–100
[2017-02-08] MEDS: PROPOFOL 1000 MG/100 ML INJ 100 ML IV SCH ×5 (00:06→13:09)
[2017-02-08] MEDS: PIPERACIL-TAZO 4.5 GM PREMIX 100 ML IV SCH ×4 (03:02→20:35)
[2017-02-08] MEDS: RESP: ALBUTEROL 2.5 MG/IPRATROPIUM 0.5 MG NEB (SCH) NEB ×4 (03:40→19:48)
[2017-02-08] MEDS: fentaNYL DRIP 250 ML IV PRN ×2 (04:16→13:08)
[2017-02-08] MEDS: LABETALOL HCL 100 MG/20 ML VIAL IV PUSH PRN ×2 (05:05→09:40)
[2017-02-08] MEDS: INSULIN ASPART SUPPLEMENTAL SCALE SQ SCH ×4 (06:00→18:00)
[2017-02-08 07:26] LABS: BICARBONATE 28.5 MEQ/L (21.0-32.0)
[2017-02-08 07:30] LABS: POTASSIUM 2.8 MEQ/L (3.5-5.1)
[2017-02-08] MEDS: CHLORHEXIDINE 0.12% (ORAL KIT) 15 ML CUP MT SCH ×2 (08:00→20:35)
[2017-02-08] MEDS ORDERED: POTASSIUM CHLOR 20 MEQ PREMIX 100 ML IV PRN ×2 (08:30)
[2017-02-08] MEDS ORDERED: POTASSIUM CHLOR 40 MEQ PREMIX 100 ML IV PRN (08:30)
[2017-02-08] MEDS ORDERED: MAGNESIUM OXIDE 400 MG TAB PO PRN (08:30)
[2017-02-08] MEDS ORDERED: POTASSIUM PHOSPHATE MONOBASIC 500 MG TAB PO PRN (08:30)
[2017-02-08] MEDS ORDERED: MAGNESIUM SULFATE INJ 2 GM in SODIUM CHLORIDE 0.9% INJ 96 ML IV PRN (08:30)
[2017-02-08] MEDS ORDERED: MAGNESIUM SULFATE INJ 4 GM in SODIUM CHLORIDE 0.9% INJ 92 ML IV PRN (08:30)
[2017-02-08] MEDS ORDERED: SODIUM PHOSPHATE INJ 30 MMOL in SODIUM CHLOR 0.9% 250 ML INJ 240 ML IV PRN (08:30)
[2017-02-08] MEDS ORDERED: POTASSIUM PHOSPHATE MONOBASIC 500 MG TAB PO/TUBE PRN (08:30)
[2017-02-08] MEDS ORDERED: POTASSIUM CHLORIDE 25 MEQ EFFERVESCENT TAB PO PRN (08:30)
[2017-02-08] MEDS: hydrALAZINE HCL 20 MG/ML VIAL IV PRN (08:40)
[2017-02-08] MEDS: INSULIN DETEMIR 100 UNITS/ML VIAL SQ SCH ×2 (08:41→20:35)
[2017-02-08] MEDS: SODIUM CHLORIDE 0.9% FLUSH 10 ML FLUSH IV FLUSH SCH ×3 (09:00→20:35)
[2017-02-08] MEDS: FUROSEMIDE 40 MG/4 ML VIAL IV PUSH SCH (09:00)
--- NOTE | 2017-02-08 09:02 | HHI.CCPN ---
Subjective Remarks/Hospital Course 66 y/o man has developed respiratory failure following a laparoscopic partial gastrectomy performed 01/17. He was brought to the [facility] where I met him on his arrival. Intubated for hypoxemic failure and lines placed. After 2 liters NS patient making > 40 ml/hr urine. Arrived in atrial fibrillation with rate 160s, converted after fluid, analgesia, and lopressor 5 mg X 1.Loaded with antibiotics. Family is aware. 01/25: Completion gastric resection and resuscitation. Urine output marginal but perfusion good. Tapering vasopressors. 01/26: Off all vasopressors. Tmax 100.4. Currently 100.2. Tolerating TPN. White cell count elevated 27,000. Arousable and follows commands on the ventilator. Subjective 01/27: Tmax 101.5. Pancultured including blood 2 from peripheral access and sputum. Added vancomycin. Arousable doesn't follow commands. Cultures sent from around surgical site. 01/28: Remains sedated, orally intubated on mechanical ventilation. 01/29: Remains sedated, orally intubated on mechanical ventilation. Remains febrile. 01/30: Remains sedated, orally intubated on mechanical ventilation. 01/31: Remains sedated, orally intubated on mechanical ventilation. Off TPN since 01/30. J-tube feeds being advanced to goal. Still febrile. Lipscomb cultures ordered. 02/01: Remains sedated, orally intubated on mechanical ventilation. Failing C Pap trials. Still having fevers. WBCs down to 11,000. 02/02: Remains sedated, orally intubated on mechanical ventilation. Tolerating J -tube feeds. Still having temperature spikes. 02/03: Sedated, arousable, orally intubated on mechanical ventilation. Tolerating J-tube feeds. Continues to have fever. Failing C Pap trials. 02/04: Sedated, arousable, orally intubated on mechanical ventilation. Tolerating J-tube feeds. Continues to have intermittent fevers. Failing C Pap trials. A.m. labs pending 02/05: Extubated on 02/04, requiring 50% Ventimask. Underwent CT chest abdomen pelvis which revealed presence of air-fluid level extraluminally including oral contrast extending into posterior mediastinum. 02/06: Patient was placed on BiPAP last night for worsening respiratory distress. He was intubated this morning as his respiratory effort was increasing as well as in view of concern for his anastomotic site with leak. I had a detailed discussion with patient's prior to proceeding with intubation and patient was placed on mechanical ventilation subsequently. I also placed a new left subclavian central line following intubation. Patient was subsequent only sedated with propofol. He was hypertensive prior to intubation with no episodes of hypotension noted. He was lucid and following commands prior to intubation. Right sided isidro drain continues to have cloudy greenish yellow purulent drainage. 02/07: Comfortable and well oxygenated on PRVC vent mode. Care plan has been explained to spouse. 02/08: T max 100.0, normotensive. Alert, tolerating J-tube feeds. Plan is for conservative management of leak with percutaneous drainage if collection develops. Palliative care service has contacted . Objective Vital Signs Date Time Temp Pulse Resp B/P (MAP) Pulse Ox O2 Delivery O2 Flow Rate FiO2 02/08/17 06:00 59 02/08/17 04:22 100 40 02/08/17 04:00 99.3 19 141/78 (99) 02/07/17 19:00 Mechanical Ventilator 02/06/17 07:00 15.00 Intake and Output 02/08/17 02/08/17 02/09/17 08:00 16:00 00:00 Intake Total 1592 ml Output Total 500 ml Balance 1092 ml Result Diagram: 02/06/17 0500 02/08/17 0620 Imaging Last 48 hours Impressions Chest X-Ray 02/01/17 0600 Signed Impressions: Service Date/Time: January 05:12 - CONCLUSION: 1. Support apparatus in good position. Bilateral chest tubes without pneumothorax. Basal airspace disease. Jordan Lozano MD Chest X-Ray 02/01/17 0000 Signed Impressions: Service Date/Time: January 21:16 - CONCLUSION: 1. No pneumothorax or significant change following right chest tube removal. There is stable consolidation versus atelectasis in the right lower lung zone. 2. Left chest tube is present and no pneumothorax is visualized. There is stable left basilar opacity. Gonzales Ramsay MD Last Impressions Chest X-Ray 01/27/17 0600 Signed Impressions: Service Date/Time: Friday, January 27, 2017 04:22 - CONCLUSION: 1. Support apparatus in satisfactory position. Mild basilar airspace disease. No pneumothorax. Trace pleural fluid remains on the left. Jordan Lozano MD Chest Ultrasound 01/24/17 0000 Signed Impressions: Service Date/Time: Tuesday, January 24, 2017 11:13 - CONCLUSION: 1. Large left pleural effusion. Jayson Das MD Chest CT 01/23/17 0000 Signed Impressions: Service Date/Time: Monday, January 23, 2017 18:54 - CONCLUSION: 1. Moderate-sized bilateral pleural effusions. Right pleural effusion has several small areas of loculation as above. 2. Bilateral lower lobe consolidation. 3. Somewhat mass like fullness in the right infrahilar region. A contrast- enhanced CT of the chest is recommended, preferably after resolution of pleural effusions and bibasilar consolidation. Gonzales Pierre MD Upper GI/Barium Swallow X-Ray 01/22/17 0000 Signed Impressions: Service Date/Time: Sunday, January 22, 2017 12:29 - CONCLUSION: 1. Findings suspicious for a small leak at the gastroesophageal junction with contrast pooling into an air fluid collection adjacent to the GE junction and distal esophagus. There was an end to side anastomosis performed so it is possible, but felt unlikely, that the collection represents a portion of the proximal stomach. 2. Findings were discussed with Dr. Ritchie. Gonzales Ramsay MD Abdomen CT 01/22/17 0000 Signed Impressions: Service Date/Time: Sunday, January 22, 2017 17:12 - CONCLUSION: 1. There is an abnormal air and fluid collection located to the right of the GE junction adjacent to the proximal stomach. It extends into the posterior mediastinum. The current appearance and findings on fluoroscopy examination earlier today are indicative of a leak at the anastomosis. The current surgical drain is not directly adjacent to the collection and based on the location I do not think that we could place a drain in an appropriate location percutaneously. 2. Small bilateral pleural effusions with associated atelectasis and/or consolidation in both lower lobes. Gonzales Ramsay MD Objective Remarks Gen: 66-year-old male, comfortable. Head: NL. Atraumatic. Neck: Orally intubated. Lungs: Mechanical ventilation. Decreased breath sounds both bases, few rhonchi bilaterally. Heart: NL S1S2, no murmur, rub. No JVD. Abdomen: Mildly distended, soft. Post-surgical. Isidro drain on left/right. J- tube on left. Extremities: Warm, dry. We'll perfused. Trace edema. Neuro: Sedated. Moves 4 limbs spontaneously. YESENIA. Tracks with eyes, nods head to questions. Line: Central Venous Catheter A/P Problem List: (1) Acute hypoxemic respiratory failure ICD Code: J96.01 - Acute respiratory failure with hypoxia Status: Acute (2) Primary adenocarcinoma of distal third of esophagus ICD Code: C15.5 - Malignant neoplasm of lower third of esophagus Status: Acute (3) S/P gastrectomy ICD Code: Z90.3 - Acquired absence of stomach [part of] Assessment and Plan Neuro/Psych: Chronic Benzodiazepine use Chronic muscle relaxant use Reintubated on 02/06 and placed on propofol for sedation. Patient is on alprazolam 0.25 mg twice a day and diazepam 5 mill grams twice a day when necessary for anxiety at home. Patient is on Flexeril as needed muscle relaxant at home. Presently comfortable. CV: A. fib with RVR currently normal sinus rhythm History of hypertension History of dyslipidemia Holding home medications of amlodipine 5 mg twice a day and losartan 50 mg twice a day. TPN stopped 01/30. J-tube feeds advanced to goal. Not requiring vasopressors and/or anti-hypertensives at the current time. Started Lasix 40 mg IV daily on 02/03 to mobilize fluid, restart today. Resp: Acute hypercapnic respiratory failure Bilateral pleural effusions Extubated on 02/04, required reintubation on 02/06 for worsening respiratory distress probably secondary to anastomotic leak. Continue mechanical ventilation, vent bundle. Scheduled due nebs every 6 hours with albuterol nebulizers every 2 hours. Right pigtail catheter removed on 02/01, left pigtail catheter removed by surgery 02/02 Reintubated GI: 01/19 -cholecystectomy, proximal gastrectomy with GE junction anastomosis and Botox injection by Dr. Ritchie 01/24 - bilateral chest tubes/open subtotal gastrectomy and jejunostomy placement Gastroesophageal reflux disease Holding lansoprazole 30 mg by mouth daily. Currently on pantoprazole 40 mg IV daily Isidro tubes left/right. J-tube feeds at 50 cc an hour as tolerated. Discussed with Dr. Howard covering for Dr. Ritchie regarding CT findings from 02/04 showing extraluminal air in fluid with contrast extending into posterior mediastinum and greenish yellow cloudy purulent drainage from Isidro drain raising concern for anastomotic leak. He will discuss this with Dr. Ritchie to decide further surgical options -> conservative Rx for now. : Soto catheter for accurate I's and O's in a critically ill patient Endo: Sliding-scale insulin with Novolog every 4 hours/medium. Levemir 10 units twice a day Renal: Strict intake output, monitor and replete electro lites, follow BUN/creatinine. Heme: Leukocytosis Normocytic anemia Monitor CBC daily. Follow trends ID: Currently on Zosyn, added vancomycin 01/27. Added fluconazole 400mg daily on for mae from ANDREW drain. Stopped levaquin 02/01 All blood cultures negative so far.. Wound culture with mae. Lipscomb cultures sent on 01/31, 06/12 blood culture with GPC ? contaminant. Requested ID consult for antibiotic management in view of ongoing fevers with probable fungal peritonitis on 02/04. Noted ID evaluation. Discussed CT abdomen pelvis findings with ID and Dr. Howard from general surgery covering for Dr. Ritchie - discussed findings of air fluid level as well as extraluminal oral contrast adjacent to GE junction extending into posterior mediastinum with ID and subsequently with Dr. Howard. May require reexploration for drainage of collection and repair of anastomotic leak - Defer definitive management of the leak to general surgery. Remains on antibiotics per ID. FEN: Replace electrolytes as clinically indicated MSK: Range of motion Access - Right subclavian CVL 01/24, right upper extremity PICC placed 01/23 ( discontinue 02/01). Discontinued right radial arterial line 01/27 Prophylaxis - GI - pantoprazole - DVT - SCD/pharmacological prophylaxis when okay with surgery Overall impression: Critically ill. Nutrition and infection control will be the mainstays of treatment for now. Pk Romero MD Feb 08, 2017 09:02
[2017-02-08] MEDS: POTASSIUM CHLOR 40 MEQ PREMIX 100 ML IV PRN (09:22)
[2017-02-08] MEDS: VANCOMYCIN INJ 2,000 MG in SODIUM CHLORID 0.9% 500 ML INJ 500 ML IV SCH ×2 (11:01→20:35)
[2017-02-08] MEDS: FLUCONAZOLE 400 MG PREMIX BAG 200 ML IV SCH (11:45)
--- NOTE | 2017-02-08 11:53 | PD.CONS ---
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 EGD/colonoscopy (11/30/16 )---> Nodule 1 cm distal esophagus, indurated biopsies multiple. Gastritis in antrum/body, duodenitis second portion, bx, retroflex views revealed a small hiatal hernia. Polyp diminutive cecum- cold biopsy with complete removal polyp sessile ascending colon 8 mmc old snare polypectomy with complete removal polyp in the chelated 2 cm hot snare polypectomy random biopsies from the ascending and descending to rule out microscopic colitis, diverticulosis sigmoid, descending. Pathology revealed invasive adenocarcinoma with signet reading features tumor shows strong reactivity first CDX-2 and is negative for CD68 immunostains, cecum polyp tubular adenoma, negative for high grade dysplasia or malignancy, ascending colon polyp tubular adenoma, ascending, descending colon with cold colonic mucosa showing no pathologic abnormalities. Descending colon polyp tubular adenoma. He was then evaluated with EUS (12/07/16)---> hypoechoic 0.48 x 0.91 lesion of the cardia at the edge of the GE junction, T1a Nx no lymphadenopathy. CT Scan abdomen and pelvis (12/05/16)---> mild fatty infiltration of the liver, mild diffuse enlargement of the prostate gland 4.8 cm , no evidence to indicate metastatic disease at this time. CT of the thorax ()--> tiny 3 mm pulmonary nodule on the peripheral right upper lung. This finding is nonspecific. Recommend a follow-up noncontrast chest CT thorax in 6 months. 2.6 mm thyroid nodule in the left lobe of the thyroid gland. Otherwise the rest of the CT thorax is unremarkable. No acute pulmonary infiltrates. PET Scan (12/11/16)----> unremarkable study without evidence for active malignancy or metastatic disease. He was then evaluated by oncology (Dr. Luna) and was then referred to surgical oncology. He underwent laparoscopic proximal partial gastrectomy with esophageal gastric anastomosis, laparoscopic cholecystectomy, injection of the pylorus with Botox with Dr. Pisano on 01/17/17. His pathology came back with positive margins and and therefore he underwent open subtotal gastrectomy with gastric and duodenal formation and gastroesophageal an anastomosis, jejunostomy feeding tube placement, bilateral thoracostomy tube placement (01/24/17). Of note, prior to this second surgery, he was evaluated with a gastrografin swallow findings suspicious for a small leak at the gastroesophageal junction with contrast pooling into an air fluid collection adjacent to the GE junction and distal esophagus. There was an end to side anastomosis performed so it is possible, but felt unlikely, that the collection represents a portion of the proximal stomach. He was then evaluated with CT thorax (02/04/17), which did not appreciate any signs of leak, but this was done without oral contrast. He was evaluated with He is currently in the surgical intensive care unit and GI has been consulted for evaluation for possible esophageal stent placement. The patient is currently sedated on the ventilator and therefore the history has been obtained from the EMR. 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 Gastritis Colon polyps, tubular adenomas Fatty infiltration of the liver Enlarged prostate Pulmonary nodule Thyroid nodule Anxiety Arthritis GERD Hypertension Hyperlipidemia Restless legs syndrom Vitamin d deficiency Atherosclerosis Past Surgical History Knee surgery Elbow surgery Cataract surgery Appendectomy EGD/Colonoscopy EUS Cardiac catheterization Hx PICC line I&D skin abscess right forearm Tonsillectomy Umbilical hernia repair (Sylwia Gallagher) Coded Allergies: amlodipine (Unverified Allergy, Severe, MUSCLE PAIN, 01/23/17) atorvastatin (Unverified Allergy, Severe, MUSCLE PAIN, 01/23/17) pravastatin (Unverified Allergy, Severe, MUSCLE PAIN, 01/23/17) simvastatin (Unverified Allergy, Severe, MUSCLE PAIN, 01/23/17) Medications Allergies Coded Allergies Type Severity Reaction Last Updated Verified amlodipine Allergy Severe MUSCLE PAIN 01/23/17 No atorvastatin Allergy Severe MUSCLE PAIN 01/23/17 No pravastatin Allergy Severe MUSCLE PAIN 01/23/17 No simvastatin Allergy Severe MUSCLE PAIN 01/23/17 No Active Scripts Medications Dose Route/Sig Max Daily Dose Days Date Category Zofran (Ondansetron HCl) 4 Mg Tab 8 Mg PO Q12HR PRN 01/17/17 Reported Diazepam 5 Mg Tab 5 Mg PO HS PRN 01/15/17 Reported Alprazolam 0.25 Mg Tab 0.25 Mg PO BID 01/15/17 Reported Zolpidem (Zolpidem Tartrate) 5 Mg Tab 5 Mg PO HS PRN 01/15/17 Reported Zovirax (Acyclovir) 800 Mg Tab 800 Mg PO BID PRN 01/15/17 Reported Flexeril (Cyclobenzaprine HCl) 10 Mg Tab 10 Mg PO TID PRN 01/15/17 Reported Hydrocodone-Acetaminophen 7.5-325 mg Tab 1 Tab PO Q4H PRN 01/15/17 Reported Aspirin 81 (Aspirin) 81 Mg Tabdr 81 Mg PO DAILY 01/15/17 Reported Hydrochlorothiazide 25 Mg Tab 25 Mg PO DAILY 01/15/17 Reported Zetia (Ezetimibe) 10 Mg Tab 10 Mg PO HS 01/15/17 Reported Losartan (Losartan Potassium) 50 Mg Tab 50 Mg PO BID 01/15/17 Reported Prevacid (Lansoprazole) 30 Mg Capdr 30 Mg PO BID 01/15/17 Reported Amlodipine (Amlodipine Besylate) 5 Mg Tab 5 Mg PO BID 01/15/17 Reported Family History Mother had heart disease, htn. Brother with colon polyps Social History Former smoker, Daily wine use No illicit drug use. (Sylwia Gallagher) Review of Systems ROS Unable to obtain (Sylwia Gallagher) GI Exam Vitals I&O Vital Signs Date Time Temp Pulse Resp B/P (MAP) Pulse Ox O2 Delivery O2 Flow Rate FiO2 02/08/17 09:10 40 02/08/17 09:06 98 40 02/08/17 08:00 74 02/08/17 08:00 40 02/08/17 08:00 99.1 74 12 196/84 (121) 100 02/08/17 06:00 59 02/08/17 04:22 100 40 02/08/17 04:00 99.3 76 19 141/78 (99) 100 02/08/17 04:00 76 02/08/17 04:00 40 02/08/17 02:00 60 02/08/17 01:13 100 40 02/08/17 00:00 40 02/08/17 00:00 99.0 56 16 133/63 (86) 98 02/08/17 00:00 56 02/07/17 22:00 74 02/07/17 20:00 60 02/07/17 20:00 99.0 60 16 145/64 (91) 96 02/07/17 20:00 40 02/07/17 19:45 97 40 02/07/17 19:00 100 Mechanical Ventilator 40 02/07/17 18:00 70 02/07/17 16:00 60 02/07/17 16:00 98.6 60 17 115/57 (76) 97 02/07/17 16:00 50 02/07/17 14:55 94 40 02/07/17 14:00 70 02/07/17 12:02 96 40 02/07/17 12:00 99.0 74 16 174/75 (108) 97 02/07/17 12:00 74 02/07/17 12:00 50 I/O 02/07/17 02/07/17 02/07/17 02/08/17 02/08/17 02/08/17 06:59 14:59 22:59 06:59 14:59 22:59 Intake Total 2400 ml 118 ml 1517 ml 1592 ml Output Total 865 ml 2720 ml 500 ml Balance 1535 ml 118 ml -1203 ml 1092 ml IV Total 2187 ml 118 ml 1381 ml 1390 ml Tube Feeding 213 ml 136 ml 202 ml Output Urine Total 675 ml 2500 ml 475 ml Stool Total 25 ml 100 ml 0 ml Gastric Drainage Total 100 ml 100 ml Drainage Total 65 ml 20 ml 25 ml Imaging Last Impressions Chest X-Ray 02/06/17 0600 Signed Impressions: Service Date/Time: Monday, February 06, 2017 04:30 - CONCLUSION: Stable chest x-ray with small left pleural effusion and bilateral interstitial and airspace opacities. Gonzales Ramsay MD Chest CT 02/04/17 0000 Signed Impressions: Service Date/Time: Saturday, February 04, 2017 23:18 - CONCLUSION: 1. Small bilateral pleural effusions, decreased in volume from the prior study with adjacent compressive atelectasis in the lower lobes and possible consolidation. 2. Mediastinal and bilateral hilar lymphadenopathy. 3. Please refer to abdomen and pelvis CT report for description of the subdiaphragmatic findings. Gonzales Ramsay MD Abdomen/Pelvis CT 02/04/17 0000 Signed Impressions: Service Date/Time: Saturday, February 04, 2017 23:18 - CONCLUSION: 1. No abscess is visualized, as questioned. However, there continues to be a small amount of fluid and air that appears extraluminal and located adjacent to the proximal stomach and extending into the posterior mediastinum adjacent to the distal esophagus. The right subhepatic drain is located near a portion of the fluid collection. There is also trace free fluid in the pelvis. 2. Anasarca. 3. Please refer to chest CT report for description of the supradiaphragmatic findings. Gonzales Ramsay MD Lower Extremity Ultrasound 01/27/17 0000 Signed Impressions: Service Date/Time: Friday, January 27, 2017 12:49 - CONCLUSION: No DVT in either lower extremity. Elijah Funes MD Chest Ultrasound 01/24/17 0000 Signed Impressions: Service Date/Time: Tuesday, January 24, 2017 11:13 - CONCLUSION: 1. Large left pleural effusion. Jayson Das MD Upper GI/Barium Swallow X-Ray 01/22/17 0000 Signed Impressions: Service Date/Time: Sunday, January 22, 2017 12:29 - CONCLUSION: 1. Findings suspicious for a small leak at the gastroesophageal junction with contrast pooling into an air fluid collection adjacent to the GE junction and distal esophagus. There was an end to side anastomosis performed so it is possible, but felt unlikely, that the collection represents a portion of the proximal stomach. 2. Findings were discussed with Dr. Ritchie. Gonzales Ramsay MD Abdomen CT 01/22/17 0000 Signed Impressions: Service Date/Time: Sunday, January 22, 2017 17:12 - CONCLUSION: 1. There is an abnormal air and fluid collection located to the right of the GE junction adjacent to the proximal stomach. It extends into the posterior mediastinum. The current appearance and findings on fluoroscopy examination earlier today are indicative of a leak at the anastomosis. The current surgical drain is not directly adjacent to the collection and based on the location I do not think that we could place a drain in an appropriate location percutaneously. 2. Small bilateral pleural effusions with associated atelectasis and/or consolidation in both lower lobes. Gonzales Ramsay MD Laboratory Test 02/08/17 06:20 Blood Urea Nitrogen 9 MG/DL Creatinine 0.41 MG/DL Random Glucose 113 MG/DL Calcium Level 7.6 MG/DL Sodium Level 147 MEQ/L Potassium Level 2.8 MEQ/L Chloride Level 110 MEQ/L Carbon Dioxide Level 28.5 MEQ/L Anion Gap 9 MEQ/L Estimat Glomerular Filtration Rate 210 ML/MIN Phosphorus Level 2.3 MG/DL Date/Time Source Procedure Growth Status 02/07/17 05:00 Blood Peripheral Aerobic Blood Culture - Preliminary NO GROWTH IN 1 DAY Resulted 02/07/17 05:00 Blood Peripheral Anaerobic Blood Culture - Preliminary NO GROWTH IN 1 DAY Resulted 02/06/17 09:30 Sputum Endotracheal Gram Stain - Final Resulted 02/06/17 09:30 Sputum Endotracheal Sputum Culture - Preliminary RARE GROWTH NORMAL RESPIRATORY DEMARCUS ... Resulted 01/27/17 08:00 Urine Catheterized Urine Urine Culture - Final NO GROWTH IN 48 HOURS. Complete 02/04/17 17:00 Wound Abdomen Gram Stain - Final Complete 02/04/17 17:00 Wound Culture - Final Saida Albicans Complete Physical Examination HEENT: Normocephalic; atraumatic; no jaundice. CHEST: OETT to vent. Course breath sounds. CARDIAC: RRR ABDOMEN: Soft, very mimimally distended,mild diffuse tenderness. Midline drsg d/i, ANDREW x 2. J tube with TF at 20cc/hr. flexiseal EXTREMITIES: Generalized edema. 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 (Sylwia Gallagher) Assessment and Plan Plan ASSESSMENT: - Possible esophageal leak, GI consulted for possible esophageal stent placement. S/P laparoscopic proximal partial gastrectomy with esophageal gastric anastomosis, laparoscopic cholecystectomy, injection of the pylorus with Botox with Dr. Pisano on 01/17/17. Gastrografin swallow (01/22/17)---> findings suspicious for a small leak at the gastroesophageal junction with contrast pooling into an air fluid collection adjacent to the GE junction and distal esophagus. There was an end to side anastomosis performed so it is possible, but felt unlikely, that the collection represents a portion of the proximal stomach. His pathology came back with positive margins and and therefore he underwent open subtotal gastrectomy with gastric and duodenal formation and gastroesophageal an anastomosis, jejunostomy feeding tube placement, bilateral thoracostomy tube placement (01/24/17). He was then evaluated with CT thorax (02/04/17), which did not appreciate any signs of leak, but this was done without oral contrast. GI has been consulted for evaluation for possible esophageal stent placement. D/W Dr. Hong, Dr. Pisano, and Dr Huddleston in radiology. Plan will be for CT scan thorax with oral contrast (feels this will reflux back into the esophagus to show if there is a leak. However , if it does not, they will plan on contrast under fluoro with Dr. Pisano adjusting the NGT. If leak is present, Dr. Hong will then review case for possible esophageal stent placement. - Leukocytosis. ID following. Vanco/Zosyn. - Respiratory failure/Pleural effusions. 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 EGD/colonoscopy (11/30/16)---> Nodule 1 cm distal esophagus, indurated biopsies multiple. Gastritis in antrum/body, duodenitis second portion, bx, retroflex views revealed a small hiatal hernia. Polyp diminutive cecum- cold biopsy with complete removal polyp sessile ascending colon 8 mmc old snare polypectomy with complete removal polyp in the chelated 2 cm hot snare polypectomy random biopsies from the ascending and descending to rule out microscopic colitis, diverticulosis sigmoid, descending. Pathology revealed invasive adenocarcinoma with signet reading features tumor shows strong reactivity first CDX-2 and is negative for CD68 immunostains, cecum polyp tubular adenoma, negative for high grade dysplasia or malignancy, ascending colon polyp tubular adenoma, ascending, descending colon with cold colonic mucosa showing no pathologic abnormalities. Descending colon polyp tubular adenoma. He was then evaluated with EUS (12/07)---> hypoechoic 0.48 x 0.91 lesion of the cardia at the edge of the GE junction, T1a Nx no lymphadenopathy. PET Scan (12/11/16)----> unremarkable study without evidence for active malignancy or metastatic disease. He was then evaluated by oncology (Dr. Luna) and was then referred to surgical oncology. S/P surgery as above. PLAN: - CT scan thorax with oral contrast thru NGT to evaluate for leak- per Norris, should reflux back into esophagus, but if not notify GS and he will come and adjust NGT as needed to evaluate for leak at the anastomosis. - Further recommendations to follow based on results of above - D/W Dr. Hong, Dr. Pisano, Dr. Huddleston - Pt seen and examined by Dr. Ghotra and myself and this note is written on his behalf (Sylwia Gallagher) Physician Comments Assessment and plan as above. D/W surgical team, will check for leak and if still an evidence of leak to schedule Stent placement. Further recommendations to follow. (Alyce Ghotra MD) Sywlia Gallagher Feb 08, 2017 11:53 Alyce Ghotra MD Feb 08, 2017 15:52
[2017-02-08] MEDS: LISINOPRIL 5 MG TAB PO SCH ×2 (13:00→20:35)
[2017-02-08] MEDS: METOPROLOL TARTRATE 25 MG TAB PO SCH ×2 (13:00→20:35)
--- NOTE | 2017-02-08 15:03 | HHI.PR ---
Subjective Subjective Notes Intubated Answers yes and no questions Objective Vitals/I&O Vital Signs Date Time Temp Pulse Resp B/P (MAP) Pulse Ox O2 Delivery O2 Flow Rate FiO2 02/08/17 14:41 100 40 02/08/17 12:00 99.3 80 16 155/71 (99) 02/07/17 19:00 Mechanical Ventilator 02/06/17 07:00 15.00 Labs Laboratory Tests Test 02/08/17 06:20 Blood Urea Nitrogen 9 Creatinine 0.41 Random Glucose 113 Calcium Level 7.6 Sodium Level 147 Potassium Level 2.8 Chloride Level 110 Carbon Dioxide Level 28.5 Anion Gap 9 Estimat Glomerular Filtration Rate 210 Phosphorus Level 2.3 Date/Time Source Procedure Growth Status 02/07/17 05:00 Blood Peripheral Aerobic Blood Culture - Preliminary NO GROWTH IN 1 DAY Resulted 02/07/17 05:00 Blood Peripheral Anaerobic Blood Culture - Preliminary NO GROWTH IN 1 DAY Resulted 02/06/17 09:30 Sputum Endotracheal Gram Stain - Final Resulted 02/06/17 09:30 Sputum Endotracheal Sputum Culture - Preliminary Resulted 01/27/17 08:00 Urine Catheterized Urine Urine Culture - Final NO GROWTH IN 48 HOURS. Complete 02/04/17 17:00 Wound Abdomen Gram Stain - Final Complete 02/04/17 17:00 Wound Culture - Final Saida Albicans Complete Radiology Last Impressions Chest X-Ray 01/27/17 0600 Signed Impressions: Service Date/Time: Friday, January 27, 2017 04:22 - CONCLUSION: 1. Support apparatus in satisfactory position. Mild basilar airspace disease. No pneumothorax. Trace pleural fluid remains on the left. Jordan Lozano MD Lower Extremity Ultrasound 01/27/17 0000 Signed Impressions: Service Date/Time: Friday, January 27, 2017 12:49 - CONCLUSION: No DVT in either lower extremity. Elijah Funes MD Chest Ultrasound 01/24/17 0000 Signed Impressions: Service Date/Time: Tuesday, January 24, 2017 11:13 - CONCLUSION: 1. Large left pleural effusion. Jayson Das MD Chest CT 01/23/17 0000 Signed Impressions: Service Date/Time: Monday, January 23, 2017 18:54 - CONCLUSION: 1. Moderate-sized bilateral pleural effusions. Right pleural effusion has several small areas of loculation as above. 2. Bilateral lower lobe consolidation. 3. Somewhat mass like fullness in the right infrahilar region. A contrast- enhanced CT of the chest is recommended, preferably after resolution of pleural effusions and bibasilar consolidation. Gonzales Pierre MD Upper GI/Barium Swallow X-Ray 01/22/17 0000 Signed Impressions: Service Date/Time: Sunday, January 22, 2017 12:29 - CONCLUSION: 1. Findings suspicious for a small leak at the gastroesophageal junction with contrast pooling into an air fluid collection adjacent to the GE junction and distal esophagus. There was an end to side anastomosis performed so it is possible, but felt unlikely, that the collection represents a portion of the proximal stomach. 2. Findings were discussed with Dr. Ritchie. Gonzales Ramsay MD Abdomen CT 01/22/17 0000 Signed Impressions: Service Date/Time: Sunday, January 22, 2017 17:12 - CONCLUSION: 1. There is an abnormal air and fluid collection located to the right of the GE junction adjacent to the proximal stomach. It extends into the posterior mediastinum. The current appearance and findings on fluoroscopy examination earlier today are indicative of a leak at the anastomosis. The current surgical drain is not directly adjacent to the collection and based on the location I do not think that we could place a drain in an appropriate location percutaneously. 2. Small bilateral pleural effusions with associated atelectasis and/or consolidation in both lower lobes. Gonzales Rmasay MD Cardiovascular: Regular Lungs: Clear Abdomen: Other (midline incision with allie; no drainage; ANDREW Right with clear drainage ; ANDREW Left with thicker drainage; abdomen mildly distended; J tube in place ) Extremities: Other (moderate generalized edema ) Narrative Exam Bilateral chest tubes removed Severe scrotal edema Moderate generalized edema A/P Problem List: (1) Primary adenocarcinoma of distal third of esophagus ICD Codes: C15.5 - Malignant neoplasm of lower third of esophagus Status: Acute (2) Atrial fibrillation with RVR ICD Codes: I48.91 - Unspecified atrial fibrillation Status: Chronic (3) Acute hypoxemic respiratory failure ICD Codes: J96.01 - Acute respiratory failure with hypoxia Status: Resolved (4) Gastric adenocarcinoma ICD Codes: C16.9 - Malignant neoplasm of stomach, unspecified Status: Acute Assessment and Plan 66 year old male s/p laparoscopic gastrectomy and cholecystectomy with Botox injection; s/p bilateral thoracostomy tube placement; open subtotal gastrectomy ; jejunostomy tube placement -CT today to evaluate for esophageal leak -GI consulted -NGT to LIWS -IVF -Culture from ANDREW + for Saida --- Diflucan -Low grade fevers; WBC 12.4 -Continue ANDREW management Attending Statement The exam, history, and the medical decision-making described in the above note were completed with the assistance of the mid-level provider. I reviewed and agree with the findings presented. I attest that I had a [id number] encounter with the patient on the same day, and personally performed and documented my assessment and findings in the medical record. Abdominal exam: stable, no peritonitis, drains with purulent fluid Es Solis Feb 08, 2017 15:03 Josh Ritchie MD Mar 13, 2017 22:54
[2017-02-08] MEDS: ENOXAPARIN SODIUM 30 MG/0.3 ML SYRINGE SQ SCH (16:00)
--- NOTE | 2017-02-08 16:21 | HHI.IDPN ---
Subjective Subjective Remarks Mr. 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 He was staged at a T1a,Nx based on EUS, CT thorax/Abd/pelvis and PET scan. Pt follows with Dr. Nickolas Luna for Oncology. He was admitted to [facility] on 01/17/17 for Laparoscopic gastrectomy and cholecystectomy with Botox injection with Dr. Ritchie. Patient was later being followed by hospitalist team and postoperatively he was hypoxic in the low 80s and due to ongoing concern for worsening infection patient was eventually taken to the OR on January 24, 2017. He underwent bilateral chest tube placement, also underwent open subtotal gastrectomy(70% of the stomach was removed per OR notes). Intraoperatively there was an anastomotic leak as well as mild adhesions and a small pocket of infection noted. 2 ANDREW drains were left in place and patient underwent revision of the gastroesophageal anastomosis. Patient underwent placement of a jejunostomy in the NG tube. After this he seemed to be doing okay but on January 27 he started spiking temperatures of 101 with a WBC count of 27.9. On January 31 patient again spiked another temperature on 101 while on IV antibiotics and his WBC increased to 18.1 he was pancultured on January 27 and again underwent further cultures testing on January 31. Postoperatively it appears that patient has been intubated in the ICU. He got extubated only today on February 04, 2017. He has a Soto that was placed on January 24, 2017. He has a triple lumen catheter which was placed on January 31, 2017. He additionally had a PICC line was placed on January 23 which has now been discontinued. At the time of my evaluation patient is in ISC extubated a few hours back and seems to be doing fairly okay. He often gets a little agitated and is mumbling to himself. He has fairly okay urine output. He has diarrhea and C. difficile test has been sent. I examined the wound with Dr. Ritchie and it appears that the bottom few stitches appear erythematous and one of them had very minimal specks of discharge. Dr. Ritchie removed these sutures and drained the minimal purulent material and this was sent for cultures. Staphylococcus Warneri was identified from one of the 4 cultures. Patient is currently on vancomycin repeat cultures were ordered by me today. Patient has a ANDREW drain which has grayish white drainage noted large amounts. Reportedly the fluid was initially clear and now has turned the grayish white color. Infectious disease is consulted for evaluation and management of sepsis and a postop patient. Overnight events reviewed. Remains intubated. Low grade fevers. Not on pressors. UO good. Not much resp secretions. Diarrhea but Cdiff negative. No rash No diarrhea Antibiotics Zosyn IV Vanco IV Fluconazole IV Lines Line sites with no e.o infection. Past Medical History reviewed. Allergies: Coded Allergies: amlodipine (Unverified Allergy, Severe, MUSCLE PAIN, 01/23/17) atorvastatin (Unverified Allergy, Severe, MUSCLE PAIN, 01/23/17) pravastatin (Unverified Allergy, Severe, MUSCLE PAIN, 01/23/17) simvastatin (Unverified Allergy, Severe, MUSCLE PAIN, 01/23/17) Objective . Vital Signs Date Time Temp Pulse Resp B/P (MAP) Pulse Ox O2 Delivery O2 Flow Rate FiO2 02/08/17 14:41 100 40 02/08/17 14:00 71 02/08/17 12:00 40 02/08/17 12:00 99.3 80 16 155/71 (99) 100 02/08/17 12:00 80 02/08/17 11:54 97 40 02/08/17 10:00 76 02/08/17 09:10 40 02/08/17 09:06 98 40 02/08/17 08:00 74 02/08/17 08:00 40 02/08/17 08:00 99.1 74 12 196/84 (121) 100 02/08/17 06:00 59 02/08/17 04:22 100 40 02/08/17 04:00 99.3 76 19 141/78 (99) 100 02/08/17 04:00 76 02/08/17 04:00 40 02/08/17 02:00 60 02/08/17 01:13 100 40 02/08/17 00:00 40 02/08/17 00:00 99.0 56 16 133/63 (86) 98 02/08/17 00:00 56 02/07/17 22:00 74 02/07/17 20:00 60 02/07/17 20:00 99.0 60 16 145/64 (91) 96 02/07/17 20:00 40 02/07/17 19:45 97 40 02/07/17 19:00 100 Mechanical Ventilator 40 02/07/17 18:00 70 . Laboratory Tests Test 02/07/17 05:05 02/08/17 06:20 Creatinine 0.37 MG/DL 0.41 MG/DL Estimat Glomerular Filtration Rate 237 ML/MIN 210 ML/MIN Blood Urea Nitrogen 9 MG/DL Random Glucose 113 MG/DL Calcium Level 7.6 MG/DL Sodium Level 147 MEQ/L Potassium Level 2.8 MEQ/L Chloride Level 110 MEQ/L Carbon Dioxide Level 28.5 MEQ/L Anion Gap 9 MEQ/L Phosphorus Level 2.3 MG/DL Microbiology Date/Time Source Procedure Growth Status 02/07/17 05:00 Blood Peripheral Aerobic Blood Culture - Preliminary NO GROWTH IN 1 DAY Resulted 02/07/17 05:00 Blood Peripheral Anaerobic Blood Culture - Preliminary NO GROWTH IN 1 DAY Resulted 02/07/17 04:55 Blood Peripheral Aerobic Blood Culture - Preliminary NO GROWTH IN 1 DAY Resulted 02/07/17 04:55 Blood Peripheral Anaerobic Blood Culture - Preliminary NO GROWTH IN 1 DAY Resulted 02/06/17 09:15 Blood Line Aerobic Blood Culture - Preliminary NO GROWTH IN 2 DAYS Resulted 02/06/17 09:15 Blood Line Anaerobic Blood Culture - Preliminary NO GROWTH IN 2 DAYS Resulted 02/06/17 09:30 Sputum Endotracheal Gram Stain - Final Resulted 02/06/17 09:30 Sputum Endotracheal Sputum Culture - Preliminary Resulted Imaging Last Impressions Chest X-Ray 02/06/17 0600 Signed Impressions: Service Date/Time: Monday, February 06, 2017 04:30 - CONCLUSION: Stable chest x-ray with small left pleural effusion and bilateral interstitial and airspace opacities. Gonzales Ramsay MD Chest CT 02/04/17 0000 Signed Impressions: Service Date/Time: Saturday, February 04, 2017 23:18 - CONCLUSION: 1. Small bilateral pleural effusions, decreased in volume from the prior study with adjacent compressive atelectasis in the lower lobes and possible consolidation. 2. Mediastinal and bilateral hilar lymphadenopathy. 3. Please refer to abdomen and pelvis CT report for description of the subdiaphragmatic findings. Gonzales Ramsay MD Abdomen/Pelvis CT 02/04/17 0000 Signed Impressions: Service Date/Time: Saturday, February 04, 2017 23:18 - CONCLUSION: 1. No abscess is visualized, as questioned. However, there continues to be a small amount of fluid and air that appears extraluminal and located adjacent to the proximal stomach and extending into the posterior mediastinum adjacent to the distal esophagus. The right subhepatic drain is located near a portion of the fluid collection. There is also trace free fluid in the pelvis. 2. Anasarca. 3. Please refer to chest CT report for description of the supradiaphragmatic findings. Gonzales Ramsay MD Lower Extremity Ultrasound 01/27/17 0000 Signed Impressions: Service Date/Time: Friday, January 27, 2017 12:49 - CONCLUSION: No DVT in either lower extremity. Elijah Funes MD Chest Ultrasound 01/24/17 0000 Signed Impressions: Service Date/Time: Tuesday, January 24, 2017 11:13 - CONCLUSION: 1. Large left pleural effusion. Jayson Das MD Upper GI/Barium Swallow X-Ray 01/22/17 0000 Signed Impressions: Service Date/Time: Sunday, January 22, 2017 12:29 - CONCLUSION: 1. Findings suspicious for a small leak at the gastroesophageal junction with contrast pooling into an air fluid collection adjacent to the GE junction and distal esophagus. There was an end to side anastomosis performed so it is possible, but felt unlikely, that the collection represents a portion of the proximal stomach. 2. Findings were discussed with Dr. Ritchie. Gonzales Ramsay MD Abdomen CT 01/22/17 0000 Signed Impressions: Service Date/Time: Sunday, January 22, 2017 17:12 - CONCLUSION: 1. There is an abnormal air and fluid collection located to the right of the GE junction adjacent to the proximal stomach. It extends into the posterior mediastinum. The current appearance and findings on fluoroscopy examination earlier today are indicative of a leak at the anastomosis. The current surgical drain is not directly adjacent to the collection and based on the location I do not think that we could place a drain in an appropriate location percutaneously. 2. Small bilateral pleural effusions with associated atelectasis and/or consolidation in both lower lobes. Gonzales Ramsay MD Physical Exam GENERAL: This is a well-nourished, well-developed patient, in no apparent distress. SKIN: No rashes, ecchymoses or lesions. Cool and dry. HEAD: Atraumatic. Normocephalic. No temporal or scalp tenderness. EYES: Pupils equal round and reactive. Extraocular motions intact. No scleral icterus. No injection or drainage. ENT: Nose without bleeding, purulent drainage or septal hematoma. Throat without erythema, tonsillar hypertrophy or exudate. Uvula midline. Airway patent. NECK: Trachea midline. Supple, nontender, no meningeal signs. CARDIOVASCULAR: Regular rate and rhythm without murmurs, gallops, or rubs. RESPIRATORY: Clear to auscultation. Breath sounds equal bilaterally. No wheezes , rales, or rhonchi. GASTROINTESTINAL: Midline surgical site with lower 2-3 sutures that looked erythematous and drying up at lower end. ANDREW drain with grayish white fluid in the drain. MUSCULOSKELETAL: Extremities without clubbing, cyanosis. Pedal edema noted. No joint tenderness, effusion, or edema noted. No calf tenderness. Negative Homans sign bilaterally. NEUROLOGICAL: Awake and alert. Grossly non focal Psych: cooperative IV line sites with no e.o infection. 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 He was staged at a T1a,Nx based on EUS. January 17, 2017 status post lap cholecystectomy, lap partial gastrectomy with Esophageal gastrointestinal anastomosis and Botox injection in the esophagus. January 24, 2017 bilateral chest tube placement for pleural effusions, open subtotal gastrectomy with gastric conduit formation, GE anastomosis, jejunostomy and feeding tube placement. Intra-abdominal abscess likely secondary to anastomotic leak Acute mediastinitis, possible mediastinal abscess. Due to persistent fevers as well as change in the drain fluid to white quiroz color there is a concern for ongoing fungal infection. Patient temps seem to have defervesced after addition of Diflucan. C.Albicans from wound site ? SSI. Recommendations Continue Zosyn IV Continue Vanco IV Continue Diflucan IV Culture wound from Surgical site: C.albicans Follow Stool Cdiff test negative Follow cultures Follow clinically Follow imaging: GI considering ordering CT to assess for ongoing leak. If ongoing leak plan for GI stent. Palliative care services following. Kaia Pate MD Feb 08, 2017 16:21
--- NOTE | 2017-02-08 16:45 | RADRPT ---
EXAM DATE/TIME: 02/08/2017 15:50 [facility] COMPARISON: CT THORAX W/O CONTRAST, January 23, 2017, 18:54. INDICATIONS : Evaluate for esophageal leak. RADIATION DOSE: 9.52 CTDIvol (mGy) MEDICAL HISTORY : Hypertension. Carcinoma, esophageal. stomach cancer SURGICAL HISTORY : None. ENCOUNTER: Initial ACUITY: 1 day PAIN SCALE: 0/10 LOCATION: chest TECHNIQUE: Volumetric scanning of the chest was performed. Using automated exposure control and adjustment of t he mA and/or kV according to patient size, radiation dose was kept as low as reasonably achievable to obtain optimal diagnostic quality images. DICOM format image data is available electronically for r eview and comparison. Follow-up recommendations for detected pulmonary nodules are based at a minimum on nodule size and pa tient risk factors according to Fleischner Society Guidelines. FINDINGS: This study was performed following the injection of 50 mL of dilute Gastrografin into the existing na sogastric tube. Images through the chest were performed which highlight a leak involving the distal thoracic esophagu s. I am unsure where the exact anastomosis is as I see no surgical clips better discernible on this s tudy. The leak occurs essentially at the junction of the thoracic esophagus and the stomach which occ urs lower within the chest. The leak extends initially posteriorly into the right but then courses po steriorly and to the left. The leak is predominantly within the asilar esophageal groove coursing inf eriorly but there is a component that extends into the left upper quadrant of the abdomen towards the existing surgical drain. Moderate bilateral pleural effusions with associated consolidation of the l ower lobes. The effusions are slightly smaller. Infiltrates are unchanged. No pneumothorax. CONCLUSION: 1. Leak involving the GE junction as detailed in the above discussion. 2. Slight decrease in size of the small bilateral pleural effusions. 3. Unchanged bibasilar infiltrates. Chalino Olmedo Jr., MD on February 08, 2017 at 16:37 Board Certified Radiologist. This report was verified electronically.
[2017-02-08] MEDS: PANTOPRAZOLE SODIUM 40 MG VIAL IV SCH (18:48)
[2017-02-08] MEDS: PROPOFOL 1000 MG/100 ML IV PRN (20:34)
[2017-02-08] MEDS: POTASSIUM PHOSPHATE INJ 30 MMOL in SODIUM CHLOR 0.9% 250 ML INJ 250 ML IV PRN (20:38)
[2017-02-09] VITALS (18 sets, daily range): BP systolic 95–173; BP diastolic 51–92; PULSE 59–86; RESP 10–17; TEMP 98.8–99.9; O2SAT 90–98
[2017-02-09] MEDS: PROPOFOL 1000 MG/100 ML IV PRN ×7 (00:40→20:58)
[2017-02-09] MEDS: RESP: ALBUTEROL 2.5 MG/IPRATROPIUM 0.5 MG NEB (SCH) NEB ×5 (00:45→20:34)
[2017-02-09] MEDS: PIPERACIL-TAZO 4.5 GM PREMIX 100 ML IV SCH ×4 (03:36→20:58)
[2017-02-09 04:13] LABS: AUTOMATED NEUTROPHIL # 5.6 TH/MM3 (1.8-7.7); BASOPHIL # 0.1 TH/MM3 (0-0.2); BASOPHIL % 0.6 % (0.0-2.0); EOSINOPHIL # 0.3 TH/MM3 (0-0.4); EOSINOPHIL % 3.8 % (0.0-4.0); HEMATOCRIT 26.9 % (39.0-51.0); HEMO FLAGS DIFF FINAL; LYMPH % 22.4 % (9.0-44.0); LYMPHOCYTE # 1.9 TH/MM3 (1.0-4.8); MEAN CORPUSCULAR HEMOGLOBIN 31.9 PG (27.0-34.0); MEAN CORPUSCULAR HGB CONC 33.6 % (32.0-36.0); MONO % 7.7 % (0.0-8.0); NEUT % 65.5 % (16.0-70.0); PLATELET COUNT 475 TH/MM3 (150-450); RED BLOOD COUNT 2.83 MIL/MM3 (4.50-5.90); RED CELL DISTRIBUTION WIDTH 14.1 % (11.6-17.2); WHITE BLOOD COUNT 8.6 TH/MM3 (4.0-11.0)
[2017-02-09 04:25] LABS: BICARBONATE 28.7 MEQ/L (21.0-32.0); MAGNESIUM 2.4 MG/DL (1.5-2.5); POTASSIUM 3.8 MEQ/L (3.5-5.1)
[2017-02-09] MEDS: INSULIN ASPART SUPPLEMENTAL SCALE SQ SCH ×4 (05:20→18:00)
[2017-02-09] MEDS: hydrALAZINE HCL 20 MG/ML VIAL IV PRN (05:20)
[2017-02-09] MEDS: HYDROmorphone HCL PF 1 MG/ML VIAL IV PRN ×3 (05:21→21:16)
[2017-02-09] MEDS: LABETALOL HCL 100 MG/20 ML VIAL IV PUSH PRN ×4 (05:46→13:56)
[2017-02-09] MEDS: CHLORHEXIDINE 0.12% (ORAL KIT) 15 ML CUP MT SCH ×2 (08:00→20:57)
[2017-02-09] MEDS: FUROSEMIDE 40 MG/4 ML VIAL IV PUSH SCH (08:43)
[2017-02-09] MEDS: fentaNYL DRIP 250 ML IV PRN ×2 (08:43→20:58)
[2017-02-09] MEDS: METOPROLOL TARTRATE 25 MG TAB PO SCH ×2 (09:00→20:39)
[2017-02-09] MEDS: LISINOPRIL 5 MG TAB PO SCH ×2 (09:00→20:40)
[2017-02-09] MEDS: INSULIN DETEMIR 100 UNITS/ML VIAL SQ SCH ×2 (09:00→20:57)
[2017-02-09] MEDS: SODIUM CHLORIDE 0.9% FLUSH 10 ML FLUSH IV FLUSH SCH ×3 (09:00→20:57)
[2017-02-09] MEDS: VANCOMYCIN INJ 2,000 MG in SODIUM CHLORID 0.9% 500 ML INJ 500 ML IV SCH ×2 (09:45→20:58)
[2017-02-09] MEDS ORDERED: FUROSEMIDE 40 MG/4 ML VIAL IV PUSH ONE (10:00)
[2017-02-09] MEDS ORDERED: ALBUMIN HUMAN 25% 25 GM/100 ML BAGP IV ONE (10:00)
[2017-02-09] MEDS ORDERED: hydrALAZINE HCL 20 MG/ML VIAL IV PUSH ONE (10:00)
[2017-02-09] MEDS: FLUCONAZOLE 400 MG PREMIX BAG 200 ML IV SCH (10:16)
--- NOTE | 2017-02-09 10:46 | RADRPT ---
EXAM DATE/TIME: 02/09/2017 10:08 [facility] COMPARISON: CHEST SINGLE AP, February 06, 2017, 8:53. INDICATIONS : Short of breath. MEDICAL HISTORY : None. SURGICAL HISTORY : None. ENCOUNTER: Subsequent ACUITY: 3 weeks PAIN SCORE: Non-responsive. LOCATION: Bilateral chest FINDINGS: ET and nasogastric tube are noted. Sidehole is not well-seen GE junction. The heart is enlarged. M oderate consolidations are present in the left base. Minimal fluid is present on the right. There i s less interstitial edema. CONCLUSION: Interval improvement with persistent consolidative changes left base. Rivas Das MD FACR on February 09, 2017 at 10:43 Board Certified Radiologist. This report was verified electronically.
--- NOTE | 2017-02-09 10:52 | HHI.CCPN ---
Subjective Remarks/Hospital Course 66 y/o man has developed respiratory failure following a laparoscopic partial gastrectomy performed 01/17. He was brought to the [facility] where I met him on his arrival. Intubated for hypoxemic failure and lines placed. After 2 liters NS patient making > 40 ml/hr urine. Arrived in atrial fibrillation with rate 160s, converted after fluid, analgesia, and lopressor 5 mg X 1.Loaded with antibiotics. Family is aware. 01/25: Completion gastric resection and resuscitation. Urine output marginal but perfusion good. Tapering vasopressors. 01/26: Off all vasopressors. Tmax 100.4. Currently 100.2. Tolerating TPN. White cell count elevated 27,000. Arousable and follows commands on the ventilator. Subjective 01/27: Tmax 101.5. Pancultured including blood 2 from peripheral access and sputum. Added vancomycin. Arousable doesn't follow commands. Cultures sent from around surgical site. 01/28: Remains sedated, orally intubated on mechanical ventilation. 01/29: Remains sedated, orally intubated on mechanical ventilation. Remains febrile. 01/30: Remains sedated, orally intubated on mechanical ventilation. 01/31: Remains sedated, orally intubated on mechanical ventilation. Off TPN since 01/30. J-tube feeds being advanced to goal. Still febrile. Lipscomb cultures ordered. 02/01: Remains sedated, orally intubated on mechanical ventilation. Failing C Pap trials. Still having fevers. WBCs down to 11,000. 02/02: Remains sedated, orally intubated on mechanical ventilation. Tolerating J -tube feeds. Still having temperature spikes. 02/03: Sedated, arousable, orally intubated on mechanical ventilation. Tolerating J-tube feeds. Continues to have fever. Failing C Pap trials. 02/04: Sedated, arousable, orally intubated on mechanical ventilation. Tolerating J-tube feeds. Continues to have intermittent fevers. Failing C Pap trials. A.m. labs pending 02/05: Extubated on 02/04, requiring 50% Ventimask. Underwent CT chest abdomen pelvis which revealed presence of air-fluid level extraluminally including oral contrast extending into posterior mediastinum. 02/06: Patient was placed on BiPAP last night for worsening respiratory distress. He was intubated this morning as his respiratory effort was increasing as well as in view of concern for his anastomotic site with leak. I had a detailed discussion with patient's prior to proceeding with intubation and patient was placed on mechanical ventilation subsequently. I also placed a new left subclavian central line following intubation. Patient was subsequent only sedated with propofol. He was hypertensive prior to intubation with no episodes of hypotension noted. He was lucid and following commands prior to intubation. Right sided isidro drain continues to have cloudy greenish yellow purulent drainage. 02/07: Comfortable and well oxygenated on PRVC vent mode. Care plan has been explained to spouse. 02/08: T max 100.0, normotensive. Alert, tolerating J-tube feeds. Plan is for conservative management of leak with percutaneous drainage if collection develops. Palliative care service has contacted . 02/09: Patient is alert awake tolerating CPAP. Hypotensive receiving labetalol and hydralazine when necessary. Bilateral drains with 20 mL output in [address] chest showed leak involving GI junction- probable stent by GI today Objective Vital Signs Date Time Temp Pulse Resp B/P (MAP) Pulse Ox O2 Delivery O2 Flow Rate FiO2 02/09/17 08:35 40 02/09/17 08:24 96 02/09/17 08:00 99.0 67 12 124/60 (81) 02/07/17 19:00 Mechanical Ventilator 02/06/17 07:00 15.00 Intake and Output 02/09/17 02/09/17 02/10/17 08:00 16:00 00:00 Intake Total 1792 ml Output Total 960 ml Balance 832 ml Result Diagram: 02/09/17 0350 02/09/17 0350 Imaging Last 48 hours Impressions Chest X-Ray 02/01/17 0600 Signed Impressions: Service Date/Time: January 05:12 - CONCLUSION: 1. Support apparatus in good position. Bilateral chest tubes without pneumothorax. Basal airspace disease. Jordan Lozano MD Chest X-Ray 02/01/17 0000 Signed Impressions: Service Date/Time: January 21:16 - CONCLUSION: 1. No pneumothorax or significant change following right chest tube removal. There is stable consolidation versus atelectasis in the right lower lung zone. 2. Left chest tube is present and no pneumothorax is visualized. There is stable left basilar opacity. Gonzales Ramsay MD Last Impressions Chest X-Ray 01/27/17 0600 Signed Impressions: Service Date/Time: Friday, January 27, 2017 04:22 - CONCLUSION: 1. Support apparatus in satisfactory position. Mild basilar airspace disease. No pneumothorax. Trace pleural fluid remains on the left. Jordan Lozano MD Chest Ultrasound 01/24/17 0000 Signed Impressions: Service Date/Time: Tuesday, January 24, 2017 11:13 - CONCLUSION: 1. Large left pleural effusion. Jayson Das MD Chest CT 01/23/17 0000 Signed Impressions: Service Date/Time: Monday, January 23, 2017 18:54 - CONCLUSION: 1. Moderate-sized bilateral pleural effusions. Right pleural effusion has several small areas of loculation as above. 2. Bilateral lower lobe consolidation. 3. Somewhat mass like fullness in the right infrahilar region. A contrast- enhanced CT of the chest is recommended, preferably after resolution of pleural effusions and bibasilar consolidation. Gonzales Pierre MD Upper GI/Barium Swallow X-Ray 01/22/17 0000 Signed Impressions: Service Date/Time: Sunday, January 22, 2017 12:29 - CONCLUSION: 1. Findings suspicious for a small leak at the gastroesophageal junction with contrast pooling into an air fluid collection adjacent to the GE junction and distal esophagus. There was an end to side anastomosis performed so it is possible, but felt unlikely, that the collection represents a portion of the proximal stomach. 2. Findings were discussed with Dr. Ritchie. Gonzales Ramsay MD Abdomen CT 01/22/17 0000 Signed Impressions: Service Date/Time: Sunday, January 22, 2017 17:12 - CONCLUSION: 1. There is an abnormal air and fluid collection located to the right of the GE junction adjacent to the proximal stomach. It extends into the posterior mediastinum. The current appearance and findings on fluoroscopy examination earlier today are indicative of a leak at the anastomosis. The current surgical drain is not directly adjacent to the collection and based on the location I do not think that we could place a drain in an appropriate location percutaneously. 2. Small bilateral pleural effusions with associated atelectasis and/or consolidation in both lower lobes. Gonzales Ramsay MD Objective Remarks Gen: 66-year-old male, comfortable on vent Head: NL. Atraumatic. Neck: Orally intubated. Lungs: Mechanical ventilation. Decreased breath sounds both bases, otherwise clear Heart: NL S1S2, no murmur, rub. No JVD. Hypertensive Abdomen: Mildly distended, soft, nontender. Isidro drain on left/right. J-tube on left. Extremities: Warm, dry. We'll perfused. Trace edema. Neuro: Sedated with propofol and fentanyl but wakes up easily follows commands. Moves 4 limbs spontaneously. YESENIA Urinary Catheter: Yes Assessment to: Continue Line: Central Venous Catheter A/P Problem List: (1) Acute hypoxemic respiratory failure ICD Code: J96.01 - Acute respiratory failure with hypoxia Status: Acute (2) Primary adenocarcinoma of distal third of esophagus ICD Code: C15.5 - Malignant neoplasm of lower third of esophagus Status: Acute (3) S/P gastrectomy ICD Code: Z90.3 - Acquired absence of stomach [part of] Assessment and Plan Neuro/Psych: Postop pain control Chronic Benzodiazepine use Chronic muscle relaxant use Reintubated on 02/06 and placed on propofol for sedation. Hold propofol today for weaning trial. Continue on fentanyl for pain control Patient is on alprazolam 0.25 mg twice a day and diazepam 5 mill grams twice a day when necessary for anxiety at home. Patient is on Flexeril as needed muscle relaxant at home. CV: A. fib with RVR currently normal sinus rhythm History of hypertension History of dyslipidemia Holding home medications of amlodipine 5 mg twice a day and losartan 50 mg twice a day. Use hydralazine IV and labetalol IV when necessary for SBP more than 170 TPN stopped 01/30. J-tube feeds advanced to goal. Lasix 40 mg IV daily on 02/03 to mobilize fluid, additional 40 mg IV with IV Albumin 25 GM today 02/09 Resp: Acute hypercapnic respiratory failure Bilateral pleural effusions Extubated on 02/04, required reintubation on 02/06 for worsening respiratory distress probably secondary to anastomotic leak. Continue mechanical ventilation, vent bundle. Tolerating spontaneous breathing trials. Leave intubated for EGD today to evaluate for stent placement Scheduled due nebs every 6 hours with albuterol nebulizers every 2 hours. Right pigtail catheter removed on 02/01, left pigtail catheter removed by surgery 02/02 GI: 01/19 -cholecystectomy, proximal gastrectomy with GE junction anastomosis and Botox injection by Dr. Ritchie 01/24 - bilateral chest tubes/open subtotal gastrectomy and jejunostomy placement Gastroesophageal reflux disease Currently on pantoprazole 40 mg IV daily Isidro tubes left/right, 20 ml output in 24 hours. J-tube feeds at 50 cc an hour as tolerated. Discussed with Dr. Howard covering for Dr. Ritchie regarding CT findings from 02/04 showing extraluminal air in fluid with contrast extending into posterior mediastinum and greenish yellow cloudy purulent drainage from Isidro drain raising concern for anastomotic leak. Per Dr. Ritchie to decide further surgical options -> conservative Rx for now. Clinically improving CT chest 02/08/17 showed leak at the GE junction. EGD today to evaluate for stent placement 02/09 : Soto catheter for accurate I's and O's in a critically ill patient Endo: Sliding-scale insulin with NovoLog every 4 hours/medium. Levemir 10 units twice a day Renal: Strict intake output, monitor and replete electrolytes, follow BUN/creatinine. Heme: Leukocytosis Normocytic anemia Monitor CBC daily. Follow trends ID: Currently on Zosyn, added vancomycin 01/27. Added fluconazole 400mg daily on for mae from ANDREW drain. Stopped levaquin 02/01 All blood cultures negative so far. Wound culture with mae. Lipscomb cultures sent on 01/31, 06/12 blood culture with Staph Warneri ? contaminant. ID Dr. Pate following Remains on antibiotics per ID. FEN: Replace electrolytes as clinically indicated MSK: Range of motion Access - Right subclavian CVL 01/24, right upper extremity PICC placed 01/23 ( discontinue 02/01). Discontinued right radial arterial line 01/27 Prophylaxis - GI - pantoprazole - DVT - SCD/pharmacological prophylaxis when okay with surgery Overall impression: Critically ill. Nutrition and infection control will be the mainstays of treatment for now. EGD today to evaluate for stent placement Yosef Rolon MD Feb 09, 2017 10:52
[2017-02-09] MEDS: POTASSIUM CHLOR 20 MEQ PREMIX 100 ML IV SCH ×2 (11:53→14:00)
[2017-02-09] MEDS ORDERED: PROPOFOL 200 MG/20 ML AMP IV ONE (12:00)
[2017-02-09] MEDS: hydrALAZINE HCL 20 MG/ML VIAL IV PUSH PRN ×2 (13:14→17:10)
--- NOTE | 2017-02-09 15:24 | HHI.PR ---
Addendum to Inpatient Note Addendum Reason: Additional Documentation Additional Information Patient undergoing EGD and esophageal stent placement. Kaia Pate MD Feb 09, 2017 15:24
[2017-02-09] MEDS ORDERED: PROPOFOL 200 MG/20 ML AMP IV PUSH ONE (16:05)
--- NOTE | 2017-02-09 16:36 | PD.PROCEDR ---
GI Procedure REFERRING PHYSICIAN Dr. Calderon PROCEDURE PERFORMED EGD with biopsy and clip placement INDICATION FOR PROCEDURE Esophageal leak from a surgical anastomosis PROCEDURE: The procedure, risks and benefits were discussed with Mr. Byrd and informed consent was obtained. Anesthesia sedated him with Diprivan. He was placed in the left lateral decubitus position. EGD: The Pentax videoscope was introduced through the oropharynx and advanced to the second portion of the duodenum under direct visualization. FINDINGS: Esophagus this was unremarkable up until the distal end where there was noted inflammation friability with a large fistulous opening with obvious surgical changes and bulging at the anastomosis the bulging was biopsied the fistulous opening we tried to apply some clips but there was too much friability and the clips wouldn't hold The small bowel attached to the esophagus appeared to be unremarkable ESTIMATED BLOOD LOSS: None SPECIMENS REMOVED: Anastomotic biopsy COMPLICATIONS: None IMPRESSION: Esophageal anastomotic leak from anastomotic fistula PLAN: Await biopsy Plan for stent placement Continue supportive care NG tube reposition at anastomosis for suctioning Dakota Hong MD Feb 09, 2017 16:36
--- NOTE | 2017-02-09 17:27 | HHI.PR ---
Subjective Subjective Notes Intubated at bedside s/p EGD this afternoon Objective Vitals/I&O Vital Signs Date Time Temp Pulse Resp B/P (MAP) Pulse Ox O2 Delivery O2 Flow Rate FiO2 02/09/17 16:29 95 40 02/09/17 12:00 74 02/09/17 12:00 99.3 10 171/92 (118) 02/07/17 19:00 Mechanical Ventilator 02/06/17 07:00 15.00 Labs Laboratory Tests Test 02/08/17 17:35 02/09/17 03:50 Potassium Level 3.4 3.8 White Blood Count 8.6 Red Blood Count 2.83 Hemoglobin 9.0 Hematocrit 26.9 Mean Corpuscular Volume 95.0 Mean Corpuscular Hemoglobin 31.9 Mean Corpuscular Hemoglobin Concent 33.6 Red Cell Distribution Width 14.1 Platelet Count 475 Mean Platelet Volume 7.3 Neutrophils (%) (Auto) 65.5 Lymphocytes (%) (Auto) 22.4 Monocytes (%) (Auto) 7.7 Eosinophils (%) (Auto) 3.8 Basophils (%) (Auto) 0.6 Neutrophils # (Auto) 5.6 Lymphocytes # (Auto) 1.9 Monocytes # (Auto) 0.7 Eosinophils # (Auto) 0.3 Basophils # (Auto) 0.1 CBC Comment DIFF FINAL Differential Comment Blood Urea Nitrogen 5 Creatinine 0.51 Random Glucose 100 Calcium Level 7.9 Phosphorus Level 2.9 Magnesium Level 2.4 Sodium Level 147 Chloride Level 112 Carbon Dioxide Level 28.7 Anion Gap 6 Estimat Glomerular Filtration Rate 164 Date/Time Source Procedure Growth Status 02/07/17 05:00 Blood Peripheral Aerobic Blood Culture - Preliminary NO GROWTH IN 2 DAYS Resulted 02/07/17 05:00 Blood Peripheral Anaerobic Blood Culture - Preliminary NO GROWTH IN 2 DAYS Resulted 02/06/17 09:30 Sputum Endotracheal Gram Stain - Final Resulted 02/06/17 09:30 Sputum Endotracheal Sputum Culture - Preliminary Resulted 01/27/17 08:00 Urine Catheterized Urine Urine Culture - Final NO GROWTH IN 48 HOURS. Complete 02/04/17 17:00 Wound Abdomen Gram Stain - Final Complete 02/04/17 17:00 Wound Culture - Final Saida Albicans Complete Radiology Last Impressions Chest X-Ray 01/27/17 0600 Signed Impressions: Service Date/Time: Friday, January 27, 2017 04:22 - CONCLUSION: 1. Support apparatus in satisfactory position. Mild basilar airspace disease. No pneumothorax. Trace pleural fluid remains on the left. Jordan Lozano MD Lower Extremity Ultrasound 01/27/17 0000 Signed Impressions: Service Date/Time: Friday, January 27, 2017 12:49 - CONCLUSION: No DVT in either lower extremity. Elijah Funes MD Chest Ultrasound 01/24/17 0000 Signed Impressions: Service Date/Time: Tuesday, January 24, 2017 11:13 - CONCLUSION: 1. Large left pleural effusion. Jayson Das MD Chest CT 01/23/17 0000 Signed Impressions: Service Date/Time: Monday, January 23, 2017 18:54 - CONCLUSION: 1. Moderate-sized bilateral pleural effusions. Right pleural effusion has several small areas of loculation as above. 2. Bilateral lower lobe consolidation. 3. Somewhat mass like fullness in the right infrahilar region. A contrast- enhanced CT of the chest is recommended, preferably after resolution of pleural effusions and bibasilar consolidation. Gonzales Pierre MD Upper GI/Barium Swallow X-Ray 01/22/17 0000 Signed Impressions: Service Date/Time: Sunday, January 22, 2017 12:29 - CONCLUSION: 1. Findings suspicious for a small leak at the gastroesophageal junction with contrast pooling into an air fluid collection adjacent to the GE junction and distal esophagus. There was an end to side anastomosis performed so it is possible, but felt unlikely, that the collection represents a portion of the proximal stomach. 2. Findings were discussed with Dr. Ritchie. Gonzales Ramsay MD Abdomen CT 01/22/17 0000 Signed Impressions: Service Date/Time: Sunday, January 22, 2017 17:12 - CONCLUSION: 1. There is an abnormal air and fluid collection located to the right of the GE junction adjacent to the proximal stomach. It extends into the posterior mediastinum. The current appearance and findings on fluoroscopy examination earlier today are indicative of a leak at the anastomosis. The current surgical drain is not directly adjacent to the collection and based on the location I do not think that we could place a drain in an appropriate location percutaneously. 2. Small bilateral pleural effusions with associated atelectasis and/or consolidation in both lower lobes. Gonzales Ramsay MD Cardiovascular: Regular Lungs: Clear Abdomen: Other (midline incision with allie; ANDREW RIGHT SS; ANDREW LEFT with thick drainage; J tube clamped ) Extremities: Other (see below ) Narrative Exam Moderate scrotal edema Moderate generalized edema A/P Problem List: (1) Primary adenocarcinoma of distal third of esophagus ICD Codes: C15.5 - Malignant neoplasm of lower third of esophagus Status: Acute (2) Atrial fibrillation with RVR ICD Codes: I48.91 - Unspecified atrial fibrillation Status: Chronic (3) Acute hypoxemic respiratory failure ICD Codes: J96.01 - Acute respiratory failure with hypoxia Status: Resolved (4) Gastric adenocarcinoma ICD Codes: C16.9 - Malignant neoplasm of stomach, unspecified Status: Acute Assessment and Plan 66 year old male s/p laparoscopic gastrectomy and cholecystectomy with Botox injection; s/p bilateral thoracostomy tube placement; open subtotal gastrectomy ; jejunostomy tube placement -CT chest--- leak involving the GE junction -GI consulted ---s/p EGD --plan for esophageal stent placement early next week -NGT to LIWS -IVF -Low grade fevers; WBC 8.6 -Restart TF -Continue ANDREW management Attending Statement The exam, history, and the medical decision-making described in the above note were completed with the assistance of the mid-level provider. I reviewed and agree with the findings presented. I attest that I had a [id number] encounter with the patient on the same day, and personally performed and documented my assessment and findings in the medical record. Abdominal exam: stable, drains with minimal output will likely benefit from stent to improve healing Es Solis Feb 09, 2017 17:27 Josh Ritchie MD Mar 13, 2017 23:00
[2017-02-09] MEDS: niCARdipine INJ 25 MG in SODIUM CHLOR 0.9% 250 ML INJ 250 ML IV PRN (17:55)
[2017-02-09] MEDS: PANTOPRAZOLE SODIUM 40 MG VIAL IV SCH (18:26)
[2017-02-09] MEDS: LORazepam 2 MG/ML VIAL IV PRN (21:16)
[2017-02-10] VITALS (18 sets, daily range): BP systolic 120–181; BP diastolic 50–70; PULSE 61–115; RESP 12–29; TEMP 98.1–99.3; O2SAT 88–100
[2017-02-10] MEDS: RESP: ALBUTEROL 2.5 MG/IPRATROPIUM 0.5 MG NEB (SCH) NEB ×4 (01:05→21:05)
[2017-02-10] MEDS: PROPOFOL 1000 MG/100 ML IV PRN ×4 (02:55→08:57)
[2017-02-10] MEDS: fentaNYL DRIP 250 ML IV PRN ×2 (02:56→17:53)
[2017-02-10 05:20] LABS: BICARBONATE 32.2 MEQ/L (21.0-32.0); MAGNESIUM 2.1 MG/DL (1.5-2.5); POTASSIUM 3.3 MEQ/L (3.5-5.1)
[2017-02-10] MEDS: PIPERACIL-TAZO 4.5 GM PREMIX 100 ML IV SCH ×4 (05:21→22:08)
[2017-02-10] MEDS: INSULIN ASPART SUPPLEMENTAL SCALE SQ SCH ×4 (06:00→18:00)
[2017-02-10] MEDS: POTASSIUM PHOSPHATE INJ 30 MMOL in SODIUM CHLOR 0.9% 250 ML INJ 250 ML IV PRN (06:02)
[2017-02-10] MEDS: CHLORHEXIDINE 0.12% (ORAL KIT) 15 ML CUP MT SCH ×2 (08:00→20:00)
[2017-02-10] MEDS: FUROSEMIDE 40 MG/4 ML VIAL IV PUSH SCH (08:41)
[2017-02-10] MEDS: INSULIN DETEMIR 100 UNITS/ML VIAL SQ SCH ×2 (08:43→22:08)
[2017-02-10] MEDS: LISINOPRIL 5 MG TAB PO SCH ×2 (09:00→22:07)
[2017-02-10] MEDS: METOPROLOL TARTRATE 25 MG TAB PO SCH ×3 (09:00→22:05)
[2017-02-10] MEDS: SODIUM CHLORIDE 0.9% FLUSH 10 ML FLUSH IV FLUSH SCH ×3 (09:00→21:57)
[2017-02-10] MEDS: VANCOMYCIN INJ 2,000 MG in SODIUM CHLORID 0.9% 500 ML INJ 500 ML IV SCH ×2 (09:48→22:08)
[2017-02-10] MEDS: FLUCONAZOLE 400 MG PREMIX BAG 200 ML IV SCH (11:00)
--- NOTE | 2017-02-10 13:00 | HHI.GIFU ---
Subjective Remarks Patient is alert, intubated, NGT to LIWS, with clear gastric liquid noted, no blood, tolerating TF through J tube okay Objective Vitals I&O Vital Signs Date Time Temp Pulse Resp B/P (MAP) Pulse Ox O2 Delivery O2 Flow Rate FiO2 02/10/17 12:00 40 02/10/17 12:00 98.4 78 14 165/50 (88) 95 02/10/17 12:00 78 02/10/17 10:00 61 02/10/17 09:14 95 40 02/10/17 09:14 100 Ventilator 40 02/10/17 08:00 98.6 82 12 140/63 (88) 99 02/10/17 08:00 82 02/10/17 08:00 40 02/10/17 06:00 67 02/10/17 04:00 98.6 64 12 123/60 (81) 98 02/10/17 04:00 40 02/10/17 04:00 64 02/10/17 02:00 71 02/10/17 01:05 97 40 02/10/17 00:00 64 02/10/17 00:00 40 02/10/17 00:00 98.1 63 12 120/58 (78) 97 02/09/17 20:34 95 40 02/09/17 20:00 99.1 86 12 173/74 (107) 90 02/09/17 20:00 40 02/09/17 20:00 82 02/09/17 18:00 86 02/09/17 17:55 87 231/96 02/09/17 16:29 95 40 02/09/17 16:00 72 02/09/17 16:00 40 02/09/17 16:00 99.3 72 12 164/70 (101) 98 02/09/17 14:00 76 I/O 02/09/17 02/09/17 02/09/17 02/10/17 02/10/17 02/10/17 07:00 15:00 23:00 07:00 15:00 23:00 Intake Total 1792 ml 1893 ml 1510 ml Output Total 960 ml 6463 ml 650 ml Balance 832 ml -4570 ml 860 ml IV Total 1564 ml 1793 ml 1212 ml Tube Feeding 168 ml 238 ml Albumin 100 ml Other 60 ml 60 ml Output Urine Total 800 ml 6350 ml 450 ml Stool Total 150 ml 50 ml 200 ml Gastric Drainage Total 50 ml Drainage Total 10 ml 13 ml Laboratory Laboratory Tests Test 02/10/17 04:28 Blood Urea Nitrogen 7 Creatinine 0.48 Random Glucose 113 Calcium Level 7.6 Phosphorus Level 1.9 Magnesium Level 2.1 Sodium Level 145 Potassium Level 3.3 Chloride Level 108 Carbon Dioxide Level 32.2 Anion Gap 5 Estimat Glomerular Filtration Rate 175 Date/Time Source Procedure Growth Status 02/07/17 05:00 Blood Peripheral Aerobic Blood Culture - Preliminary NO GROWTH IN 3 DAYS Resulted 02/07/17 05:00 Blood Peripheral Anaerobic Blood Culture - Preliminary NO GROWTH IN 3 DAYS Resulted 02/06/17 09:30 Sputum Endotracheal Gram Stain - Final Resulted 02/06/17 09:30 Sputum Endotracheal Sputum Culture - Preliminary Resulted 01/27/17 08:00 Urine Catheterized Urine Urine Culture - Final NO GROWTH IN 48 HOURS. Complete 02/04/17 17:00 Wound Abdomen Gram Stain - Final Complete 02/04/17 17:00 Wound Culture - Final Saida Albicans Complete Imaging Last Impressions Chest X-Ray 02/09/17 0000 Signed Impressions: Service Date/Time: Thursday, February 09, 2017 10:08 - CONCLUSION: Interval improvement with persistent consolidative changes left base. Rivas Das MD FACR Chest CT 02/08/17 0000 Signed Impressions: Service Date/Time: January 15:50 - CONCLUSION: 1. Leak involving the GE junction as detailed in the above discussion. 2. Slight decrease in size of the small bilateral pleural effusions. 3. Unchanged bibasilar infiltrates. Chalino Olmedo Jr., MD Abdomen/Pelvis CT 02/04/17 0000 Signed Impressions: Service Date/Time: Saturday, February 04, 2017 23:18 - CONCLUSION: 1. No abscess is visualized, as questioned. However, there continues to be a small amount of fluid and air that appears extraluminal and located adjacent to the proximal stomach and extending into the posterior mediastinum adjacent to the distal esophagus. The right subhepatic drain is located near a portion of the fluid collection. There is also trace free fluid in the pelvis. 2. Anasarca. 3. Please refer to chest CT report for description of the supradiaphragmatic findings. Gonzales Ramsay MD Lower Extremity Ultrasound 01/27/17 0000 Signed Impressions: Service Date/Time: Friday, January 27, 2017 12:49 - CONCLUSION: No DVT in either lower extremity. Elijah Funes MD Chest Ultrasound 01/24/17 0000 Signed Impressions: Service Date/Time: Tuesday, January 24, 2017 11:13 - CONCLUSION: 1. Large left pleural effusion. Jayson Das MD Upper GI/Barium Swallow X-Ray 01/22/17 0000 Signed Impressions: Service Date/Time: Sunday, January 22, 2017 12:29 - CONCLUSION: 1. Findings suspicious for a small leak at the gastroesophageal junction with contrast pooling into an air fluid collection adjacent to the GE junction and distal esophagus. There was an end to side anastomosis performed so it is possible, but felt unlikely, that the collection represents a portion of the proximal stomach. 2. Findings were discussed with Dr. Ritchie. Gonzales Ramsay MD Abdomen CT 01/22/17 0000 Signed Impressions: Service Date/Time: Sunday, January 22, 2017 17:12 - CONCLUSION: 1. There is an abnormal air and fluid collection located to the right of the GE junction adjacent to the proximal stomach. It extends into the posterior mediastinum. The current appearance and findings on fluoroscopy examination earlier today are indicative of a leak at the anastomosis. The current surgical drain is not directly adjacent to the collection and based on the location I do not think that we could place a drain in an appropriate location percutaneously. 2. Small bilateral pleural effusions with associated atelectasis and/or consolidation in both lower lobes. Gonzales Ramsay MD Physical Exam HEENT: normocephalic; atraumatic; no jaundice. CHEST: OEtt to vent CARDIAC: Regular rate and rhythm with no murmur gallop or rubs. ABDOMEN: Soft, nondistended, mild diffused tenderness, mid line allie to old surgical wound, ANDREW in place, J tube EXTREMITIES: No clubbing, cyanosis, gen. edema. SKIN: Normal; no rash; no jaundice. 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 S/P laparoscopic proximal partial gastrectomy with esophageal gastric anastomosis, laparoscopic cholecystectomy, injection of the pylorus with Botox with Dr. Pisano on 01/17/17. Gastrografin swallow (01/22/17)---> findings suspicious for a small leak at the gastroesophageal junction with contrast pooling into an air fluid collection adjacent to the GE junction and distal esophagus. There was an end to side anastomosis performed so it is possible, but felt unlikely, that the collection represents a portion of the proximal stomach. His pathology came back with positive margins and and therefore he underwent open subtotal gastrectomy with gastric and duodenal formation and gastroesophageal an anastomosis, jejunostomy feeding tube placement, bilateral thoracostomy tube placement (01/24/17). He was then evaluated with CT thorax (02/04/17), which did not appreciate any signs of leak, but this was done without oral contrast. GI has been consulted for evaluation for possible esophageal stent placement. D/W Dr. Hong, Dr. Pisano, and Dr Huddleston in radiology. Plan will be for CT scan thorax with oral contrast (feels this will reflux back into the esophagus to show if there is a leak. However , if it does not, they will plan on contrast under fluoro with Dr. Pisano adjusting the NGT. If leak is present, Dr. Hong will then review case for possible esophageal stent placement. - Leukocytosis. ID following. Vanco/Zosyn. - Respiratory failure/Pleural effusions. 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 EGD/colonoscopy (11/30/16)---> Nodule 1 cm distal esophagus, indurated biopsies multiple. Gastritis in antrum/body, duodenitis second portion, bx, retroflex views revealed a small hiatal hernia. Polyp diminutive cecum- cold biopsy with complete removal polyp sessile ascending colon 8 mmc old snare polypectomy with complete removal polyp in the chelated 2 cm hot snare polypectomy random biopsies from the ascending and descending to rule out microscopic colitis, diverticulosis sigmoid, descending. Pathology revealed invasive adenocarcinoma with signet reading features tumor shows strong reactivity first CDX-2 and is negative for CD68 immunostains, cecum polyp tubular adenoma, negative for high grade dysplasia or malignancy, ascending colon polyp tubular adenoma, ascending, descending colon with cold colonic mucosa showing no pathologic abnormalities. Descending colon polyp tubular adenoma. He was then evaluated with EUS (12/07)---> hypoechoic 0.48 x 0.91 lesion of the cardia at the edge of the GE junction, T1a Nx no lymphadenopathy. PET Scan (12/11/16)----> unremarkable study without evidence for active malignancy or metastatic disease. He was then evaluated by oncology (Dr. Luna) and was then referred to surgical oncology. S/P surgery as above. 02-10-17- S/P EGD on (02/09/17)---> Esophagus this was unremarkable up until the distal end where noted inflammation friability with a large fistulous opening with obvious surgical changes and bulging at the anastomosis the bulging was biopsied the fistulous opening we tried to apply some clips but there was too much friability and the clips wouldn't hold The small bowel attached to the esophagus appeared to be unremarkable PLAN: - TF per dietary recommendation - Plan for EGD/stent some time next week - cont. NGT to LIWS - Further recommendations to follow based on results of above - Pt seen and examined by Dr. Rod and myself Marlon Sheikh Feb 10, 2017 13:00
[2017-02-10] MEDS: RESP: ALBUTEROL 2.5 MG/IPRATROPIUM 0.5 MG NEB (PRN) NEB (13:52)
--- NOTE | 2017-02-10 14:15 | HHI.PR ---
Subjective Subjective Notes s/p EGD, seizing for planned stent placement Objective Vitals/I&O Vital Signs Date Time Temp Pulse Resp B/P (MAP) Pulse Ox O2 Delivery O2 Flow Rate FiO2 02/10/17 13:45 91 Nasal Cannula 4 02/10/17 13:28 40 02/10/17 12:00 98.4 78 14 165/50 (88) Labs Laboratory Tests Test 02/10/17 04:28 Blood Urea Nitrogen 7 Creatinine 0.48 Random Glucose 113 Calcium Level 7.6 Phosphorus Level 1.9 Magnesium Level 2.1 Sodium Level 145 Potassium Level 3.3 Chloride Level 108 Carbon Dioxide Level 32.2 Anion Gap 5 Estimat Glomerular Filtration Rate 175 Date/Time Source Procedure Growth Status 02/07/17 05:00 Blood Peripheral Aerobic Blood Culture - Preliminary NO GROWTH IN 3 DAYS Resulted 02/07/17 05:00 Blood Peripheral Anaerobic Blood Culture - Preliminary NO GROWTH IN 3 DAYS Resulted 02/06/17 09:30 Sputum Endotracheal Gram Stain - Final Resulted 02/06/17 09:30 Sputum Endotracheal Sputum Culture - Preliminary Resulted 01/27/17 08:00 Urine Catheterized Urine Urine Culture - Final NO GROWTH IN 48 HOURS. Complete 02/04/17 17:00 Wound Abdomen Gram Stain - Final Complete 02/04/17 17:00 Wound Culture - Final Saida Albicans Complete Radiology Last Impressions Chest X-Ray 01/27/17 0600 Signed Impressions: Service Date/Time: Friday, January 27, 2017 04:22 - CONCLUSION: 1. Support apparatus in satisfactory position. Mild basilar airspace disease. No pneumothorax. Trace pleural fluid remains on the left. Jordan Lozano MD Lower Extremity Ultrasound 01/27/17 0000 Signed Impressions: Service Date/Time: Friday, January 27, 2017 12:49 - CONCLUSION: No DVT in either lower extremity. Elijah Funes MD Chest Ultrasound 01/24/17 0000 Signed Impressions: Service Date/Time: Tuesday, January 24, 2017 11:13 - CONCLUSION: 1. Large left pleural effusion. Jayson Das MD Chest CT 01/23/17 0000 Signed Impressions: Service Date/Time: Monday, January 23, 2017 18:54 - CONCLUSION: 1. Moderate-sized bilateral pleural effusions. Right pleural effusion has several small areas of loculation as above. 2. Bilateral lower lobe consolidation. 3. Somewhat mass like fullness in the right infrahilar region. A contrast- enhanced CT of the chest is recommended, preferably after resolution of pleural effusions and bibasilar consolidation. Gonzales Pierre MD Upper GI/Barium Swallow X-Ray 01/22/17 0000 Signed Impressions: Service Date/Time: Sunday, January 22, 2017 12:29 - CONCLUSION: 1. Findings suspicious for a small leak at the gastroesophageal junction with contrast pooling into an air fluid collection adjacent to the GE junction and distal esophagus. There was an end to side anastomosis performed so it is possible, but felt unlikely, that the collection represents a portion of the proximal stomach. 2. Findings were discussed with Dr. Ritchie. Gonzales Ramsay MD Abdomen CT 01/22/17 0000 Signed Impressions: Service Date/Time: Sunday, January 22, 2017 17:12 - CONCLUSION: 1. There is an abnormal air and fluid collection located to the right of the GE junction adjacent to the proximal stomach. It extends into the posterior mediastinum. The current appearance and findings on fluoroscopy examination earlier today are indicative of a leak at the anastomosis. The current surgical drain is not directly adjacent to the collection and based on the location I do not think that we could place a drain in an appropriate location percutaneously. 2. Small bilateral pleural effusions with associated atelectasis and/or consolidation in both lower lobes. Gonzales Ramsay MD Abdomen: Non-distended, Non-tender A/P Problem List: (1) Primary adenocarcinoma of distal third of esophagus ICD Codes: C15.5 - Malignant neoplasm of lower third of esophagus Status: Acute (2) Atrial fibrillation with RVR ICD Codes: I48.91 - Unspecified atrial fibrillation Status: Acute (3) Acute hypoxemic respiratory failure ICD Codes: J96.01 - Acute respiratory failure with hypoxia Status: Acute (4) Gastric adenocarcinoma ICD Codes: C16.9 - Malignant neoplasm of stomach, unspecified Status: Acute Assessment and Plan 66 year old male s/p laparoscopic gastrectomy and cholecystectomy with Botox injection, s/p bilateral thoracostomy tube placement; open subtotal gastrectomy ; jejunostomy tube placement - planning for stent on Sunday, appreciate GI help - tolerating tube feeds at goal - wean to extubate -Continue ANDREW management to bulb suction -Bilateral chest tubes removed -Appreciate Pension Administrator/ID consults Josh Ritchie MD Feb 10, 2017 14:15
[2017-02-10] MEDS ORDERED: FUROSEMIDE 40 MG/4 ML VIAL IV PUSH ONE (14:45)
--- NOTE | 2017-02-10 15:02 | HHI.CCPN ---
Subjective Remarks/Hospital Course 66 y/o man has developed respiratory failure following a laparoscopic partial gastrectomy performed 01/17. He was brought to the [facility] where I met him on his arrival. Intubated for hypoxemic failure and lines placed. After 2 liters NS patient making > 40 ml/hr urine. Arrived in atrial fibrillation with rate 160s, converted after fluid, analgesia, and lopressor 5 mg X 1.Loaded with antibiotics. Family is aware. 01/25: Completion gastric resection and resuscitation. Urine output marginal but perfusion good. Tapering vasopressors. 01/26: Off all vasopressors. Tmax 100.4. Currently 100.2. Tolerating TPN. White cell count elevated 27,000. Arousable and follows commands on the ventilator. Subjective 01/27: Tmax 101.5. Pancultured including blood 2 from peripheral access and sputum. Added vancomycin. Arousable doesn't follow commands. Cultures sent from around surgical site. 01/28: Remains sedated, orally intubated on mechanical ventilation. 01/29: Remains sedated, orally intubated on mechanical ventilation. Remains febrile. 01/30: Remains sedated, orally intubated on mechanical ventilation. 01/31: Remains sedated, orally intubated on mechanical ventilation. Off TPN since 01/30. J-tube feeds being advanced to goal. Still febrile. Lipscomb cultures ordered. 02/01: Remains sedated, orally intubated on mechanical ventilation. Failing C Pap trials. Still having fevers. WBCs down to 11,000. 02/02: Remains sedated, orally intubated on mechanical ventilation. Tolerating J -tube feeds. Still having temperature spikes. 02/03: Sedated, arousable, orally intubated on mechanical ventilation. Tolerating J-tube feeds. Continues to have fever. Failing C Pap trials. 02/04: Sedated, arousable, orally intubated on mechanical ventilation. Tolerating J-tube feeds. Continues to have intermittent fevers. Failing C Pap trials. A.m. labs pending 02/05: Extubated on 02/04, requiring 50% Ventimask. Underwent CT chest abdomen pelvis which revealed presence of air-fluid level extraluminally including oral contrast extending into posterior mediastinum. 02/06: Patient was placed on BiPAP last night for worsening respiratory distress. He was intubated this morning as his respiratory effort was increasing as well as in view of concern for his anastomotic site with leak. I had a detailed discussion with patient's prior to proceeding with intubation and patient was placed on mechanical ventilation subsequently. I also placed a new left subclavian central line following intubation. Patient was subsequent only sedated with propofol. He was hypertensive prior to intubation with no episodes of hypotension noted. He was lucid and following commands prior to intubation. Right sided isidro drain continues to have cloudy greenish yellow purulent drainage. 02/07: Comfortable and well oxygenated on PRVC vent mode. Care plan has been explained to spouse. 02/08: T max 100.0, normotensive. Alert, tolerating J-tube feeds. Plan is for conservative management of leak with percutaneous drainage if collection develops. Palliative care service has contacted . 02/09: Patient is alert awake tolerating CPAP. Hypotensive receiving labetalol and hydralazine when necessary. Bilateral drains with 20 mL output in [address] chest showed leak involving GE junction- probable stent by GI today. 02/10: Acceptable parameters on CPAP/SBT. Extubated without event. A bit excess fluid, redouble diuretics today. Replace K. Objective Vital Signs Date Time Temp Pulse Resp B/P (MAP) Pulse Ox O2 Delivery O2 Flow Rate FiO2 02/10/17 13:45 91 Nasal Cannula 4 02/10/17 13:28 40 02/10/17 12:00 98.4 78 14 165/50 (88) Intake and Output 02/10/17 02/10/17 02/11/17 08:00 16:00 00:00 Intake Total 1510 ml Output Total 650 ml Balance 860 ml Result Diagram: 02/09/17 0350 02/10/17 0428 Imaging Last 48 hours Impressions Chest X-Ray 02/01/17 0600 Signed Impressions: Service Date/Time: January 05:12 - CONCLUSION: 1. Support apparatus in good position. Bilateral chest tubes without pneumothorax. Basal airspace disease. Jordan Lozano MD Chest X-Ray 02/01/17 0000 Signed Impressions: Service Date/Time: January 21:16 - CONCLUSION: 1. No pneumothorax or significant change following right chest tube removal. There is stable consolidation versus atelectasis in the right lower lung zone. 2. Left chest tube is present and no pneumothorax is visualized. There is stable left basilar opacity. Gonzales Ramsay MD Last Impressions Chest X-Ray 01/27/17 0600 Signed Impressions: Service Date/Time: Friday, January 27, 2017 04:22 - CONCLUSION: 1. Support apparatus in satisfactory position. Mild basilar airspace disease. No pneumothorax. Trace pleural fluid remains on the left. Jordan Lozano MD Chest Ultrasound 01/24/17 0000 Signed Impressions: Service Date/Time: Tuesday, January 24, 2017 11:13 - CONCLUSION: 1. Large left pleural effusion. Jayson Das MD Chest CT 01/23/17 0000 Signed Impressions: Service Date/Time: Monday, January 23, 2017 18:54 - CONCLUSION: 1. Moderate-sized bilateral pleural effusions. Right pleural effusion has several small areas of loculation as above. 2. Bilateral lower lobe consolidation. 3. Somewhat mass like fullness in the right infrahilar region. A contrast- enhanced CT of the chest is recommended, preferably after resolution of pleural effusions and bibasilar consolidation. Gonzales Pierre MD Upper GI/Barium Swallow X-Ray 01/22/17 0000 Signed Impressions: Service Date/Time: Sunday, January 22, 2017 12:29 - CONCLUSION: 1. Findings suspicious for a small leak at the gastroesophageal junction with contrast pooling into an air fluid collection adjacent to the GE junction and distal esophagus. There was an end to side anastomosis performed so it is possible, but felt unlikely, that the collection represents a portion of the proximal stomach. 2. Findings were discussed with Dr. Ritchie. Gonzales Ramsay MD Abdomen CT 01/22/17 0000 Signed Impressions: Service Date/Time: Sunday, January 22, 2017 17:12 - CONCLUSION: 1. There is an abnormal air and fluid collection located to the right of the GE junction adjacent to the proximal stomach. It extends into the posterior mediastinum. The current appearance and findings on fluoroscopy examination earlier today are indicative of a leak at the anastomosis. The current surgical drain is not directly adjacent to the collection and based on the location I do not think that we could place a drain in an appropriate location percutaneously. 2. Small bilateral pleural effusions with associated atelectasis and/or consolidation in both lower lobes. Gonzales Ramsay MD Objective Remarks Gen: 66-year-old male, comfortable on vent Head: NL. Atraumatic. Neck: Orally intubated. Lungs: Mechanical ventilation. Decreased breath sounds both bases, otherwise clear. Mild tachypnea. Heart: NL S1S2, no murmur, rub. No JVD. Hypertensive Abdomen: Mildly distended, soft, nontender. Isidro drain on left/right. J-tube on left. Extremities: Warm, dry. Well perfused. Trace edema. Neuro: Follows commands. Moves 4 limbs spontaneously. YESENIA Line: Central Venous Catheter A/P Problem List: (1) Acute hypoxemic respiratory failure ICD Code: J96.01 - Acute respiratory failure with hypoxia Status: Acute (2) Primary adenocarcinoma of distal third of esophagus ICD Code: C15.5 - Malignant neoplasm of lower third of esophagus Status: Acute (3) S/P gastrectomy ICD Code: Z90.3 - Acquired absence of stomach [part of] Assessment and Plan Neuro/Psych: Postop pain control Chronic Benzodiazepine use Chronic muscle relaxant use Reintubated on 02/06 and placed on propofol for sedation. Hold propofol today for weaning trial. Continue on fentanyl for pain control Patient is on alprazolam 0.25 mg twice a day and diazepam 5 mill grams twice a day when necessary for anxiety at home. Patient is on Flexeril as needed muscle relaxant at home. CV: A. fib with RVR currently normal sinus rhythm History of hypertension History of dyslipidemia Holding home medications of amlodipine 5 mg twice a day and losartan 50 mg twice a day. Use hydralazine IV and labetalol IV when necessary for SBP more than 170 TPN stopped 01/30. J-tube feeds advanced to goal. Lasix 40 mg IV daily. Add 60 tday additional. Resp: Acute hypercapnic respiratory failure Bilateral pleural effusions Extubated on 02/04, required reintubation on 02/06 for worsening respiratory distress probably secondary to anastomotic leak. Continue mechanical ventilation, vent bundle. Tolerating spontaneous breathing trials. Leave intubated for EGD today to evaluate for stent placement Scheduled due nebs every 6 hours with albuterol nebulizers every 2 hours. Right pigtail catheter removed on 02/01, left pigtail catheter removed by surgery 02/02 GI: 01/19 -cholecystectomy, proximal gastrectomy with GE junction anastomosis and Botox injection by Dr. Ritchie 01/24 - bilateral chest tubes/open subtotal gastrectomy and jejunostomy placement Gastroesophageal reflux disease Currently on pantoprazole 40 mg IV daily Isidro tubes left/right, 20 ml output in 24 hours. J-tube feeds at 50 cc an hour as tolerated. Discussed with Dr. Howard covering for Dr. Ritchie regarding CT findings from 02/04 showing extraluminal air in fluid with contrast extending into posterior mediastinum and greenish yellow cloudy purulent drainage from Isidro drain raising concern for anastomotic leak. Per Dr. Ritchie to decide further surgical options -> conservative Rx for now. Clinically improving CT chest 02/08/17 showed leak at the GE junction. EGD today to evaluate for stent placement 02/09 : Soto catheter for accurate I's and O's in a critically ill patient Endo: Sliding-scale insulin with NovoLog every 4 hours/medium. Levemir 10 units twice a day Renal: Strict intake output, monitor and replete electrolytes, follow BUN/creatinine. Heme: Leukocytosis Normocytic anemia Monitor CBC daily. Follow trends ID: Currently on Zosyn, added vancomycin 01/27. Added fluconazole 400mg daily on for mae from ANDREW drain. Stopped levaquin 02/01 All blood cultures negative so far. Wound culture with mae. Lipscomb cultures sent on 01/31, 06/12 blood culture with Staph Warneri ? contaminant. ID Dr. Pate following Remains on antibiotics per ID. FEN: Replace electrolytes as clinically indicated Nutrition - Prealbumin 9, J tube feeds uninterrupted. MSK: Range of motion Access - Right subclavian CVL 01/24, right upper extremity PICC placed 01/23 ( discontinue 02/01). Discontinued right radial arterial line 01/27 Prophylaxis - GI - pantoprazole - DVT - SCD/pharmacological prophylaxis. Overall impression: Nutrition and infection control will be the mainstays of treatment for now. Stent perhaps this week. Pk Romero MD Feb 10, 2017 15:02
--- NOTE | 2017-02-10 15:21 | HHI.IDPN ---
Subjective Subjective Remarks Mr. 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 He was staged at a T1a,Nx based on EUS, CT thorax/Abd/pelvis and PET scan. Pt follows with Dr. Nickolas Luna for Oncology. [place] [facility] for Laparoscopic gastrectomy and cholecystectomy with Botox injection with Dr. Ritchie. Patient was later being followed by hospitalist team and postoperatively he was hypoxic in the low 80s and due to ongoing concern for worsening infection patient was eventually taken to the OR on January 24, 2017. He underwent bilateral chest tube placement, also underwent open subtotal gastrectomy(70% of the stomach was removed per OR notes). Intraoperatively there was an anastomotic leak as well as mild adhesions and a small pocket of infection noted. 2 ANDREW drains were left in place and patient underwent revision of the gastroesophageal anastomosis. Patient underwent placement of a jejunostomy in the NG tube. After this he seemed to be doing okay but on January 27 he started spiking temperatures of 101 with a WBC count of 27.9. On January 31 patient again spiked another temperature on 101 while on IV antibiotics and his WBC increased to 18.1 he was pancultured on January 27 and again underwent further cultures testing on January 31. Postoperatively it appears that patient has been intubated in the ICU. He got extubated only today on February 04, 2017. He has a Soto that was placed on January 24, 2017. He has a triple lumen catheter which was placed on January 31, 2017. He additionally had a PICC line was placed on January 23 which has now been discontinued. At the time of my evaluation patient is in ISC extubated a few hours back and seems to be doing fairly okay. He often gets a little agitated and is mumbling to himself. He has fairly okay urine output. He has diarrhea and C. difficile test has been sent. I examined the wound with Dr. Ritchie and it appears that the bottom few stitches appear erythematous and one of them had very minimal specks of discharge. Dr. Ritchie removed these sutures and drained the minimal purulent material and this was sent for cultures. Staphylococcus Warneri was identified from one of the 4 cultures. Patient is currently on vancomycin repeat cultures were ordered by me today. Patient has a ANDREW drain which has grayish white drainage noted large amounts. Reportedly the fluid was initially clear and now has turned the grayish white color. Infectious disease is consulted for evaluation and management of sepsis and a postop patient. Notes reviewed D/W RN On nasal O2 Not SOB Getting TF BP ok WBC down to normal Antibiotics Zosyn IV Vanco IV Fluconazole IV Lines Line sites with no e.o infection. Past Medical History reviewed. Allergies: Coded Allergies: amlodipine (Unverified Allergy, Severe, MUSCLE PAIN, 01/23/17) atorvastatin (Unverified Allergy, Severe, MUSCLE PAIN, 01/23/17) pravastatin (Unverified Allergy, Severe, MUSCLE PAIN, 01/23/17) simvastatin (Unverified Allergy, Severe, MUSCLE PAIN, 01/23/17) Objective . Vital Signs Date Time Temp Pulse Resp B/P (MAP) Pulse Ox O2 Delivery O2 Flow Rate FiO2 02/10/17 13:45 91 Nasal Cannula 4 02/10/17 13:28 96 40 02/10/17 12:00 40 02/10/17 12:00 98.4 78 14 165/50 (88) 95 02/10/17 12:00 78 02/10/17 11:00 40 02/10/17 10:00 61 02/10/17 09:14 95 40 02/10/17 09:14 100 Ventilator 40 02/10/17 08:00 98.6 82 12 140/63 (88) 99 02/10/17 08:00 82 02/10/17 08:00 40 02/10/17 06:00 67 02/10/17 04:00 98.6 64 12 123/60 (81) 98 02/10/17 04:00 40 02/10/17 04:00 64 02/10/17 02:00 71 02/10/17 01:05 97 40 02/10/17 00:00 64 02/10/17 00:00 40 02/10/17 00:00 98.1 63 12 120/58 (78) 97 02/09/17 20:34 95 40 02/09/17 20:00 99.1 86 12 173/74 (107) 90 02/09/17 20:00 40 02/09/17 20:00 82 02/09/17 18:00 86 02/09/17 17:55 87 231/96 02/09/17 16:29 95 40 02/09/17 16:00 72 02/09/17 16:00 40 02/09/17 16:00 99.3 72 12 164/70 (101) 98 . Laboratory Tests Test 02/09/17 03:50 White Blood Count 8.6 TH/MM3 Red Blood Count 2.83 MIL/MM3 Hemoglobin 9.0 GM/DL Hematocrit 26.9 % Mean Corpuscular Volume 95.0 FL Mean Corpuscular Hemoglobin 31.9 PG Mean Corpuscular Hemoglobin Concent 33.6 % Red Cell Distribution Width 14.1 % Platelet Count 475 TH/MM3 Mean Platelet Volume 7.3 FL Neutrophils (%) (Auto) 65.5 % Lymphocytes (%) (Auto) 22.4 % Monocytes (%) (Auto) 7.7 % Eosinophils (%) (Auto) 3.8 % Basophils (%) (Auto) 0.6 % Neutrophils # (Auto) 5.6 TH/MM3 Lymphocytes # (Auto) 1.9 TH/MM3 Monocytes # (Auto) 0.7 TH/MM3 Eosinophils # (Auto) 0.3 TH/MM3 Basophils # (Auto) 0.1 TH/MM3 CBC Comment DIFF FINAL Differential Comment Laboratory Tests Test 02/08/17 17:35 02/09/17 03:50 02/10/17 04:28 Potassium Level 3.4 MEQ/L 3.8 MEQ/L 3.3 MEQ/L Blood Urea Nitrogen 5 MG/DL 7 MG/DL Creatinine 0.51 MG/DL 0.48 MG/DL Random Glucose 100 MG/DL 113 MG/DL Calcium Level 7.9 MG/DL 7.6 MG/DL Phosphorus Level 2.9 MG/DL 1.9 MG/DL Magnesium Level 2.4 MG/DL 2.1 MG/DL Sodium Level 147 MEQ/L 145 MEQ/L Chloride Level 112 MEQ/L 108 MEQ/L Carbon Dioxide Level 28.7 MEQ/L 32.2 MEQ/L Anion Gap 6 MEQ/L 5 MEQ/L Estimat Glomerular Filtration Rate 164 ML/MIN 175 ML/MIN Imaging Last Impressions Chest X-Ray 02/06/17 0600 Signed Impressions: Service Date/Time: Monday, February 06, 2017 04:30 - CONCLUSION: Stable chest x-ray with small left pleural effusion and bilateral interstitial and airspace opacities. Gonzales Ramsay MD Chest CT 02/04/17 0000 Signed Impressions: Service Date/Time: Saturday, February 04, 2017 23:18 - CONCLUSION: 1. Small bilateral pleural effusions, decreased in volume from the prior study with adjacent compressive atelectasis in the lower lobes and possible consolidation. 2. Mediastinal and bilateral hilar lymphadenopathy. 3. Please refer to abdomen and pelvis CT report for description of the subdiaphragmatic findings. Gonzales Ramsay MD Abdomen/Pelvis CT 02/04/17 0000 Signed Impressions: Service Date/Time: Saturday, February 04, 2017 23:18 - CONCLUSION: 1. No abscess is visualized, as questioned. However, there continues to be a small amount of fluid and air that appears extraluminal and located adjacent to the proximal stomach and extending into the posterior mediastinum adjacent to the distal esophagus. The right subhepatic drain is located near a portion of the fluid collection. There is also trace free fluid in the pelvis. 2. Anasarca. 3. Please refer to chest CT report for description of the supradiaphragmatic findings. Gonzales Ramsay MD Lower Extremity Ultrasound 01/27/17 0000 Signed Impressions: Service Date/Time: Friday, January 27, 2017 12:49 - CONCLUSION: No DVT in either lower extremity. Elijah Funes MD Chest Ultrasound 01/24/17 0000 Signed Impressions: Service Date/Time: Tuesday, January 24, 2017 11:13 - CONCLUSION: 1. Large left pleural effusion. Jayson Das MD Upper GI/Barium Swallow X-Ray 01/22/17 0000 Signed Impressions: Service Date/Time: Sunday, January 22, 2017 12:29 - CONCLUSION: 1. Findings suspicious for a small leak at the gastroesophageal junction with contrast pooling into an air fluid collection adjacent to the GE junction and distal esophagus. There was an end to side anastomosis performed so it is possible, but felt unlikely, that the collection represents a portion of the proximal stomach. 2. Findings were discussed with Dr. Ritchie. Gonzales Ramsay MD Abdomen CT 01/22/17 0000 Signed Impressions: Service Date/Time: Sunday, January 22, 2017 17:12 - CONCLUSION: 1. There is an abnormal air and fluid collection located to the right of the GE junction adjacent to the proximal stomach. It extends into the posterior mediastinum. The current appearance and findings on fluoroscopy examination earlier today are indicative of a leak at the anastomosis. The current surgical drain is not directly adjacent to the collection and based on the location I do not think that we could place a drain in an appropriate location percutaneously. 2. Small bilateral pleural effusions with associated atelectasis and/or consolidation in both lower lobes. Gonzales Ramsay MD Physical Exam GENERAL: Awake and alert, comfotable, on nasal O2 SKIN: No rashes, ecchymoses or lesions. Cool and dry. HEAD: Atraumatic. Normocephalic. No temporal or scalp tenderness. EYES: Pupils equal round and reactive. Extraocular motions intact. No scleral icterus. No injection or drainage. ENT: Nose without bleeding, purulent drainage or septal hematoma. Throat without erythema, tonsillar hypertrophy or exudate. Uvula midline. Airway patent. NECK: Trachea midline. Supple, nontender, no meningeal signs. CARDIOVASCULAR: Regular rate and rhythm without murmurs, gallops, or rubs. RESPIRATORY: Clear to auscultation. Breath sounds equal bilaterally. No wheezes , rales, or rhonchi. GASTROINTESTINAL: Midline surgical site, dry, has allie in place, dry, and there is a dry scab in lower portion, no erythema. ANDREW drain on right with slightly cloudy yellow fluic. ANDREW on left with purulent fluid. MUSCULOSKELETAL: Extremities without clubbing, cyanosis. Pedal edema noted. No calf tenderness. Negative Homans sign bilaterally. NEUROLOGICAL: Awake and alert. Grossly non focal Psych: cooperative IV line sites with no e.o infection. 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 He was staged at a T1a,Nx based on EUS. January 17, 2017 status post lap cholecystectomy, lap partial gastrectomy with Esophageal gastrointestinal anastomosis and Botox injection in the esophagus. January 24, 2017 bilateral chest tube placement for pleural effusions, open subtotal gastrectomy with gastric conduit formation, GE anastomosis, jejunostomy and feeding tube placement. Intra-abdominal abscess likely secondary to anastomotic leak Acute mediastinitis, possible mediastinal abscess. Due to persistent fevers as well as change in the drain fluid to white quiroz color there is a concern for ongoing fungal infection. Patient temps seem to have defervesced after addition of Diflucan. C.Albicans from wound site ? SSI. Recommendations Continue Zosyn IV Continue Vanco IV Continue Diflucan IV Follow cultures Follow clinically Possible surgery next week D/W Cyndy Mcgowan MD Feb 10, 2017 15:21
[2017-02-10] MEDS: niCARdipine INJ 25 MG in SODIUM CHLOR 0.9% 250 ML INJ 250 ML IV PRN ×3 (16:47→21:56)
[2017-02-10] MEDS: PANTOPRAZOLE SODIUM 40 MG VIAL IV SCH (17:53)
[2017-02-11] VITALS (17 sets, daily range): BP systolic 145–170; BP diastolic 63–80; PULSE 90–114; RESP 16–23; TEMP 99–100; O2SAT 91–98
[2017-02-11] MEDS: niCARdipine INJ 25 MG in SODIUM CHLOR 0.9% 250 ML INJ 250 ML IV PRN ×9 (00:52→21:43)
[2017-02-11] MEDS: PIPERACIL-TAZO 4.5 GM PREMIX 100 ML IV SCH ×4 (03:48→21:07)
[2017-02-11] MEDS: RESP: ALBUTEROL 2.5 MG/IPRATROPIUM 0.5 MG NEB (SCH) NEB ×4 (04:14→21:14)
[2017-02-11 05:57] LABS: BICARBONATE 30.6 MEQ/L (21.0-32.0); MAGNESIUM 2.1 MG/DL (1.5-2.5); POTASSIUM 3.1 MEQ/L (3.5-5.1)
[2017-02-11] MEDS: INSULIN ASPART SUPPLEMENTAL SCALE SQ SCH ×4 (06:00→17:37)
[2017-02-11] MEDS: fentaNYL DRIP 250 ML IV PRN ×2 (07:46→21:42)
[2017-02-11] MEDS: CHLORHEXIDINE 0.12% (ORAL KIT) 15 ML CUP MT SCH ×2 (08:00→20:00)
[2017-02-11] MEDS: POTASSIUM PHOSPHATE INJ 30 MMOL in SODIUM CHLOR 0.9% 250 ML INJ 250 ML IV PRN (08:18)
[2017-02-11] MEDS: FUROSEMIDE 40 MG/4 ML VIAL IV PUSH SCH ×2 (08:39→21:05)
[2017-02-11] MEDS: LORazepam 2 MG/ML VIAL IV PRN (08:39)
[2017-02-11] MEDS: METOPROLOL TARTRATE 25 MG TAB PO SCH ×2 (08:39→21:06)
[2017-02-11] MEDS: LISINOPRIL 5 MG TAB PO SCH ×2 (08:39→21:06)
[2017-02-11] MEDS: INSULIN DETEMIR 100 UNITS/ML VIAL SQ SCH ×2 (08:40→21:09)
[2017-02-11] MEDS: VANCOMYCIN INJ 2,000 MG in SODIUM CHLORID 0.9% 500 ML INJ 500 ML IV SCH ×2 (08:40→21:07)
[2017-02-11] MEDS: SODIUM CHLORIDE 0.9% FLUSH 10 ML FLUSH IV FLUSH SCH ×3 (09:00→21:00)
--- NOTE | 2017-02-11 09:12 | HHI.CCPN ---
Subjective Remarks/Hospital Course 66 y/o man has developed respiratory failure following a laparoscopic partial gastrectomy performed 01/17. He was brought to the [facility] where I met him on his arrival. Intubated for hypoxemic failure and lines placed. After 2 liters NS patient making > 40 ml/hr urine. Arrived in atrial fibrillation with rate 160s, converted after fluid, analgesia, and lopressor 5 mg X 1.Loaded with antibiotics. Family is aware. 01/25: Completion gastric resection and resuscitation. Urine output marginal but perfusion good. Tapering vasopressors. 01/26: Off all vasopressors. Tmax 100.4. Currently 100.2. Tolerating TPN. White cell count elevated 27,000. Arousable and follows commands on the ventilator. Subjective 01/27: Tmax 101.5. Pancultured including blood 2 from peripheral access and sputum. Added vancomycin. Arousable doesn't follow commands. Cultures sent from around surgical site. 01/28: Remains sedated, orally intubated on mechanical ventilation. 01/29: Remains sedated, orally intubated on mechanical ventilation. Remains febrile. 01/30: Remains sedated, orally intubated on mechanical ventilation. 01/31: Remains sedated, orally intubated on mechanical ventilation. Off TPN since 01/30. J-tube feeds being advanced to goal. Still febrile. Lipscomb cultures ordered. 02/01: Remains sedated, orally intubated on mechanical ventilation. Failing C Pap trials. Still having fevers. WBCs down to 11,000. 02/02: Remains sedated, orally intubated on mechanical ventilation. Tolerating J -tube feeds. Still having temperature spikes. 02/03: Sedated, arousable, orally intubated on mechanical ventilation. Tolerating J-tube feeds. Continues to have fever. Failing C Pap trials. 02/04: Sedated, arousable, orally intubated on mechanical ventilation. Tolerating J-tube feeds. Continues to have intermittent fevers. Failing C Pap trials. A.m. labs pending 02/05: Extubated on 02/04, requiring 50% Ventimask. Underwent CT chest abdomen pelvis which revealed presence of air-fluid level extraluminally including oral contrast extending into posterior mediastinum. 02/06: Patient was placed on BiPAP last night for worsening respiratory distress. He was intubated this morning as his respiratory effort was increasing as well as in view of concern for his anastomotic site with leak. I had a detailed discussion with patient's prior to proceeding with intubation and patient was placed on mechanical ventilation subsequently. I also placed a new left subclavian central line following intubation. Patient was subsequent only sedated with propofol. He was hypertensive prior to intubation with no episodes of hypotension noted. He was lucid and following commands prior to intubation. Right sided isidro drain continues to have cloudy greenish yellow purulent drainage. 02/07: Comfortable and well oxygenated on PRVC vent mode. Care plan has been explained to spouse. 02/08: T max 100.0, normotensive. Alert, tolerating J-tube feeds. Plan is for conservative management of leak with percutaneous drainage if collection develops. Palliative care service has contacted . 02/09: Patient is alert awake tolerating CPAP. Hypotensive receiving labetalol and hydralazine when necessary. Bilateral drains with 20 mL output in [address] chest showed leak involving GE junction- probable stent by GI today. 02/10: Acceptable parameters on CPAP/SBT. Extubated without event. A bit excess fluid, redouble diuretics today. Replace K. 02/11: Extubated about 20 hours ago, breathing comfortably. Lungs clear, strong cough effort. Still edematous, continue active diuresis. Objective Vital Signs Date Time Temp Pulse Resp B/P (MAP) Pulse Ox O2 Delivery O2 Flow Rate FiO2 02/11/17 08:23 91 Venturi Mask 6.00 50 02/11/17 07:46 108 147/67 02/11/17 04:00 99.9 18 Intake and Output 02/11/17 02/11/17 02/12/17 08:00 16:00 00:00 Intake Total 536 ml Output Total 2260 ml Balance -1724 ml Result Diagram: 02/09/17 0350 02/11/17 0510 Imaging Last 48 hours Impressions Chest X-Ray 02/01/17 0600 Signed Impressions: Service Date/Time: January 05:12 - CONCLUSION: 1. Support apparatus in good position. Bilateral chest tubes without pneumothorax. Basal airspace disease. Jordan Lozano MD Chest X-Ray 02/01/17 0000 Signed Impressions: Service Date/Time: January 21:16 - CONCLUSION: 1. No pneumothorax or significant change following right chest tube removal. There is stable consolidation versus atelectasis in the right lower lung zone. 2. Left chest tube is present and no pneumothorax is visualized. There is stable left basilar opacity. Gonzales Ramsay MD Last Impressions Chest X-Ray 01/27/17 0600 Signed Impressions: Service Date/Time: Friday, January 27, 2017 04:22 - CONCLUSION: 1. Support apparatus in satisfactory position. Mild basilar airspace disease. No pneumothorax. Trace pleural fluid remains on the left. Jordan Lozano MD Chest Ultrasound 01/24/17 0000 Signed Impressions: Service Date/Time: Tuesday, January 24, 2017 11:13 - CONCLUSION: 1. Large left pleural effusion. Jayson Das MD Chest CT 01/23/17 0000 Signed Impressions: Service Date/Time: Monday, January 23, 2017 18:54 - CONCLUSION: 1. Moderate-sized bilateral pleural effusions. Right pleural effusion has several small areas of loculation as above. 2. Bilateral lower lobe consolidation. 3. Somewhat mass like fullness in the right infrahilar region. A contrast- enhanced CT of the chest is recommended, preferably after resolution of pleural effusions and bibasilar consolidation. Gonzales Pierre MD Upper GI/Barium Swallow X-Ray 01/22/17 0000 Signed Impressions: Service Date/Time: Sunday, January 22, 2017 12:29 - CONCLUSION: 1. Findings suspicious for a small leak at the gastroesophageal junction with contrast pooling into an air fluid collection adjacent to the GE junction and distal esophagus. There was an end to side anastomosis performed so it is possible, but felt unlikely, that the collection represents a portion of the proximal stomach. 2. Findings were discussed with Dr. Ritchie. Gonzales Ramsay MD Abdomen CT 01/22/17 0000 Signed Impressions: Service Date/Time: Sunday, January 22, 2017 17:12 - CONCLUSION: 1. There is an abnormal air and fluid collection located to the right of the GE junction adjacent to the proximal stomach. It extends into the posterior mediastinum. The current appearance and findings on fluoroscopy examination earlier today are indicative of a leak at the anastomosis. The current surgical drain is not directly adjacent to the collection and based on the location I do not think that we could place a drain in an appropriate location percutaneously. 2. Small bilateral pleural effusions with associated atelectasis and/or consolidation in both lower lobes. Gonzales Ramsay MD Objective Remarks Gen: 66-year-old male, alert, exhausted Head: NL. Atraumatic. Neck: Orally intubated. Lungs: Improved breath sounds both bases, otherwise clear. Mild tachypnea. Heart: NL S1S2, no murmur, rub. No JVD. Hypertensive. Abdomen: Mildly distended, soft, nontender. Isidro drain on left/right. J-tube on left, minimal output. Extremities: Warm, dry. Well perfused. Trace edema. Neuro: Follows commands. Moves 4 limbs spontaneously. YESENIA. Conversant today, oriented to place, person. Line: Central Venous Catheter A/P Problem List: (1) Acute hypoxemic respiratory failure ICD Code: J96.01 - Acute respiratory failure with hypoxia Status: Acute (2) Primary adenocarcinoma of distal third of esophagus ICD Code: C15.5 - Malignant neoplasm of lower third of esophagus Status: Acute (3) S/P gastrectomy ICD Code: Z90.3 - Acquired absence of stomach [part of] Assessment and Plan Neuro/Psych: Postop pain control Chronic Benzodiazepine use Chronic muscle relaxant use Reintubated on 02/06 and placed on propofol for sedation. Hold propofol today for weaning trial. Continue on fentanyl for pain control Patient is on alprazolam 0.25 mg twice a day and diazepam 5 mill grams twice a day when necessary for anxiety at home. Patient is on Flexeril as needed muscle relaxant at home. CV: A. fib with RVR currently normal sinus rhythm History of hypertension History of dyslipidemia Holding home medications of amlodipine 5 mg twice a day and losartan 50 mg twice a day. Use hydralazine IV and labetalol IV when necessary for SBP more than 170 TPN stopped 01/30. J-tube feeds advanced to goal. Lasix 40 mg IV bid daily for 2-3 days. Resp: Acute hypercapnic respiratory failure Bilateral pleural effusions Extubated on 02/04, required reintubation on 02/06 for worsening respiratory distress probably secondary to anastomotic leak. Continue mechanical ventilation, vent bundle. Tolerating spontaneous breathing trials. Leave intubated for EGD today to evaluate for stent placement Scheduled due nebs every 6 hours with albuterol nebulizers every 2 hours. Right pigtail catheter removed on 02/01, left pigtail catheter removed by surgery 02/02 Extubated 02/11. GI: 01/19 -cholecystectomy, proximal gastrectomy with GE junction anastomosis and Botox injection by Dr. Ritchie 01/24 - bilateral chest tubes/open subtotal gastrectomy and jejunostomy placement Gastroesophageal reflux disease Currently on pantoprazole 40 mg IV daily Isidro tubes left/right, 20 ml output in 24 hours. J-tube feeds at 50 cc an hour as tolerated. Discussed with Dr. Howard covering for Dr. Ritchie regarding CT findings from 02/04 showing extraluminal air in fluid with contrast extending into posterior mediastinum and greenish yellow cloudy purulent drainage from Isidro drain raising concern for anastomotic leak. Per Dr. Ritchie to decide further surgical options -> conservative Rx for now. Clinically improving CT chest 02/08/17 showed leak at the GE junction. EGD today to evaluate for stent placement 02/13 : Soto catheter for accurate I's and O's in a critically ill patient Endo: Sliding-scale insulin with NovoLog every 4 hours/medium. Levemir 10 units twice a day Renal: Strict intake output, monitor and replete electrolytes, follow BUN/creatinine. Heme: Leukocytosis Normocytic anemia Monitor CBC daily. Follow trends ID: Currently on Zosyn, added vancomycin 01/27. Added fluconazole 400mg daily on for mae from ANDREW drain. Stopped levaquin 02/01 All blood cultures negative so far. Wound culture with mae. Lipscomb cultures sent on 01/31, 06/12 blood culture with Staph Warneri ? contaminant. ID Dr. Pate following Remains on antibiotics per ID. FEN: Replace electrolytes as clinically indicated Nutrition - Prealbumin 9, J tube feeds uninterrupted. MSK: Range of motion Access - Right subclavian CVL 01/24, right upper extremity PICC placed 01/23 ( discontinue 02/01). Discontinued right radial arterial line 01/27 Prophylaxis - GI - pantoprazole - DVT - SCD/pharmacological prophylaxis. Overall impression: Nutrition and infection control will be the mainstays of treatment for now. Stent perhaps this week. Generalized edema is resolving. Tolerating extubation. Pk Romero MD Feb 11, 2017 09:12
[2017-02-11] MEDS: FLUCONAZOLE 400 MG PREMIX BAG 200 ML IV SCH (10:24)
[2017-02-11] MEDS ORDERED: LIPASE/PROTEASE/AMYLASE (6,000/19,000/30,000) CAP PO PRN (14:00)
--- NOTE | 2017-02-11 14:18 | HHI.PR ---
Subjective Subjective Notes j tube clogged this am, no acute issues Objective Vitals/I&O Vital Signs Date Time Temp Pulse Resp B/P (MAP) Pulse Ox O2 Delivery O2 Flow Rate FiO2 02/11/17 13:21 106 155/72 02/11/17 08:23 91 Venturi Mask 6.00 50 02/11/17 08:00 99.7 23 Labs Laboratory Tests Test 02/11/17 05:10 Blood Urea Nitrogen 5 Creatinine 0.47 Random Glucose 142 Calcium Level 7.6 Phosphorus Level 1.3 Magnesium Level 2.1 Sodium Level 146 Potassium Level 3.1 Chloride Level 107 Carbon Dioxide Level 30.6 Anion Gap 8 Estimat Glomerular Filtration Rate 180 Date/Time Source Procedure Growth Status 02/07/17 05:00 Blood Peripheral Aerobic Blood Culture - Preliminary NO GROWTH IN 4 DAYS Resulted 02/07/17 05:00 Blood Peripheral Anaerobic Blood Culture - Preliminary NO GROWTH IN 4 DAYS Resulted 02/06/17 09:30 Sputum Endotracheal Gram Stain - Final Complete 02/06/17 09:30 Sputum Endotracheal Sputum Culture - Final Complete 01/27/17 08:00 Urine Catheterized Urine Urine Culture - Final NO GROWTH IN 48 HOURS. Complete 02/04/17 17:00 Wound Abdomen Gram Stain - Final Complete 02/04/17 17:00 Wound Culture - Final Saida Albicans Complete Radiology Last Impressions Chest X-Ray 01/27/17 0600 Signed Impressions: Service Date/Time: Friday, January 27, 2017 04:22 - CONCLUSION: 1. Support apparatus in satisfactory position. Mild basilar airspace disease. No pneumothorax. Trace pleural fluid remains on the left. Jordan Lozano MD Lower Extremity Ultrasound 01/27/17 0000 Signed Impressions: Service Date/Time: Friday, January 27, 2017 12:49 - CONCLUSION: No DVT in either lower extremity. Elijah Funes MD Chest Ultrasound 01/24/17 0000 Signed Impressions: Service Date/Time: Tuesday, January 24, 2017 11:13 - CONCLUSION: 1. Large left pleural effusion. Jayson Das MD Chest CT 01/23/17 0000 Signed Impressions: Service Date/Time: Monday, January 23, 2017 18:54 - CONCLUSION: 1. Moderate-sized bilateral pleural effusions. Right pleural effusion has several small areas of loculation as above. 2. Bilateral lower lobe consolidation. 3. Somewhat mass like fullness in the right infrahilar region. A contrast- enhanced CT of the chest is recommended, preferably after resolution of pleural effusions and bibasilar consolidation. Gonzales Pierre MD Upper GI/Barium Swallow X-Ray 01/22/17 0000 Signed Impressions: Service Date/Time: Sunday, January 22, 2017 12:29 - CONCLUSION: 1. Findings suspicious for a small leak at the gastroesophageal junction with contrast pooling into an air fluid collection adjacent to the GE junction and distal esophagus. There was an end to side anastomosis performed so it is possible, but felt unlikely, that the collection represents a portion of the proximal stomach. 2. Findings were discussed with Dr. Ritchie. Gonzales Ramsay MD Abdomen CT 01/22/17 0000 Signed Impressions: Service Date/Time: Sunday, January 22, 2017 17:12 - CONCLUSION: 1. There is an abnormal air and fluid collection located to the right of the GE junction adjacent to the proximal stomach. It extends into the posterior mediastinum. The current appearance and findings on fluoroscopy examination earlier today are indicative of a leak at the anastomosis. The current surgical drain is not directly adjacent to the collection and based on the location I do not think that we could place a drain in an appropriate location percutaneously. 2. Small bilateral pleural effusions with associated atelectasis and/or consolidation in both lower lobes. Gonzales Ramsay MD Abdomen: Other (soft incision c/d/i, john in place j tube clogged ) A/P Problem List: (1) Primary adenocarcinoma of distal third of esophagus ICD Codes: C15.5 - Malignant neoplasm of lower third of esophagus Status: Acute (2) Atrial fibrillation with RVR ICD Codes: I48.91 - Unspecified atrial fibrillation Status: Acute (3) Acute hypoxemic respiratory failure ICD Codes: J96.01 - Acute respiratory failure with hypoxia Status: Acute (4) Gastric adenocarcinoma ICD Codes: C16.9 - Malignant neoplasm of stomach, unspecified Status: Acute Assessment and Plan 66 year old male s/p laparoscopic gastrectomy and cholecystectomy with Botox injection; s/p bilateral thoracostomy tube placement; open subtotal gastrectomy ; jejunostomy tube placement, - planning for stent on Sunday, appreciate GI help - unclogged j tube restart tube feeds -Continue JOHN management to bulb suction -Appreciate Furnace Tapper/ID consults Yandel Howard MD Feb 11, 2017 14:18
[2017-02-11] MEDS: ENOXAPARIN SODIUM 30 MG/0.3 ML SYRINGE SQ SCH (16:01)
--- NOTE | 2017-02-11 16:02 | HHI.GIFU ---
Subjective Remarks Pt is off the ventilator and appears comfortable. Asking for ice chips. He is able to speak. WBC count is OK. He is edematous but overall is looking fairly good. Esophageal stent is planned for Sunday, don't have a time, but probably afternoon or very nurse extern. Objective Vitals I&O Vital Signs Date Time Temp Pulse Resp B/P (MAP) Pulse Ox O2 Delivery O2 Flow Rate FiO2 02/11/17 14:00 99.3 104 19 153/70 (97) 94 02/11/17 14:00 102 02/11/17 13:21 106 155/72 02/11/17 12:00 104 02/11/17 10:23 109 151/72 02/11/17 10:00 102 02/11/17 08:23 91 Venturi Mask 6.00 50 02/11/17 08:00 99.7 114 23 151/67 (95) 94 02/11/17 08:00 114 02/11/17 07:46 108 147/67 02/11/17 06:00 105 02/11/17 05:47 106 152/73 02/11/17 04:38 93 Venturi Mask 7.00 50 02/11/17 04:00 109 02/11/17 04:00 99.9 109 18 170/78 (108) 96 02/11/17 03:47 110 165/79 02/11/17 02:00 112 02/11/17 01:08 96 Partial Rebreather 12.00 02/11/17 00:52 112 149/71 02/11/17 00:05 98 Non-Rebreather 15.00 100 02/11/17 00:00 114 02/11/17 00:00 100.0 114 18 155/80 (105) 92 02/10/17 23:55 93 Venturi Mask 6.00 50 02/10/17 22:00 112 02/10/17 21:56 113 140/70 02/10/17 21:05 94 Nasal Cannula 6.00 02/10/17 20:00 99.0 112 20 154/70 (98) 92 02/10/17 20:00 111 02/10/17 18:00 115 02/10/17 17:53 113 143/68 02/10/17 16:47 116 173/77 02/10/17 16:00 99.3 114 29 181/55 (97) 88 02/10/17 16:00 114 I/O 02/10/17 02/10/17 02/10/17 02/11/17 02/11/17 02/11/17 07:00 15:00 23:00 07:00 15:00 23:00 Intake Total 1510 ml 770 ml 2780 ml 536 ml Output Total 650 ml 5305 ml 2260 ml Balance 860 ml 770 ml -2525 ml -1724 ml IV Total 1212 ml 770 ml 2205 ml Tube Feeding 238 ml 515 ml 476 ml Other 60 ml 60 ml 60 ml Output Urine Total 450 ml 5000 ml 2200 ml Stool Total 200 ml 300 ml 50 ml Gastric Drainage Total 0 ml 0 ml Drainage Total 5 ml 10 ml Laboratory Laboratory Tests Test 02/11/17 05:10 Blood Urea Nitrogen 5 Creatinine 0.47 Random Glucose 142 Calcium Level 7.6 Phosphorus Level 1.3 Magnesium Level 2.1 Sodium Level 146 Potassium Level 3.1 Chloride Level 107 Carbon Dioxide Level 30.6 Anion Gap 8 Estimat Glomerular Filtration Rate 180 Date/Time Source Procedure Growth Status 02/07/17 05:00 Blood Peripheral Aerobic Blood Culture - Preliminary NO GROWTH IN 4 DAYS Resulted 02/07/17 05:00 Blood Peripheral Anaerobic Blood Culture - Preliminary NO GROWTH IN 4 DAYS Resulted 02/06/17 09:30 Sputum Endotracheal Gram Stain - Final Complete 02/06/17 09:30 Sputum Endotracheal Sputum Culture - Final Complete 01/27/17 08:00 Urine Catheterized Urine Urine Culture - Final NO GROWTH IN 48 HOURS. Complete 02/04/17 17:00 Wound Abdomen Gram Stain - Final Complete 02/04/17 17:00 Wound Culture - Final Saida Albicans Complete Imaging Current Medications Medications (Trade) Dose Ordered Sig/Lilly Route Start Time Stop Time Status Last Admin (NS Flush) 2 ml UNSCH PRN IV FLUSH 01/17/17 16:30 01/24/17 23:33 (NS Flush) 2 ml BID IV FLUSH 01/17/17 21:00 02/11/17 09:00 (Zofran Inj) 4 mg Q6H PRN IV 01/17/17 16:30 01/22/17 13:19 (Protonix Inj) 40 mg Q24H IV 01/17/17 18:00 02/10/17 17:53 (Benadryl Inj) 25 mg Q6H PRN IV 01/17/17 16:30 02/04/17 22:46 (Narcan Inj) 0.4 mg UNSCH PRN IV 01/17/17 16:30 (Duoneb Neb) 1 ampule Q2HR NEB PRN NEB 01/21/17 11:15 02/10/17 13:52 (Ativan Inj) 0.5 mg Q6H PRN IV 01/21/17 17:30 02/11/17 08:39 (Narcan Inj) 0.4 mg UNSCH PRN IV 01/22/17 20:45 (Dilaudid PESTICIDE CONTROL INSPECTOR Inj) 6 mg UNSCH IV 01/22/17 20:45 01/24/17 04:16 (NS Flush) See Protocol DAILY IV FLUSH 01/24/17 09:00 02/11/17 09:00 (NS Flush) See Protocol UNSCH PRN IV FLUSH 01/23/17 20:00 (Heparin Central Flush) See Protocol DAILY IV FLUSH 01/24/17 09:00 01/31/17 08:54 (Heparin Central Flush) See Protocol UNSCH PRN IV FLUSH 01/23/17 20:00 01/27/17 23:08 (Peridex 0.12% Liq) 15 ml BID@08,20 MT 01/24/17 20:00 02/11/17 08:00 Piperacillin Sod/ Tazobactam Sod 100 ml @ 200 mls/hr Q6H IV 01/24/17 22:00 02/11/17 08:40 (Dilaudid Pf Inj) 1 mg Q1H PRN IV 01/25/17 00:45 02/09/17 21:16 (Glucagon Inj) 1 mg UNSCH PRN OTHER 01/25/17 11:00 (Ofirmev 1000 Mg/ 100 ml Inj) 1,000 mg Q6H PRN IV 01/27/17 05:00 02/02/17 06:26 Pharmacy Profile Note 0 ml @ 0 mls/hr UNSCH OTHER 01/27/17 07:30 (Lovenox Inj) 30 mg Q24H SQ 01/28/17 16:00 Future hold 02/07/17 16:30 Fluconazole/ Sodium Chloride 200 ml @ 100 mls/hr Q24H IV 01/29/17 11:00 02/11/17 10:24 Vancomycin HCl 2000 mg/Sodium Chloride 520 ml @ 250 mls/hr Q12H IV 01/29/17 22:00 02/11/17 08:40 Midazolam HCl 100 ml @ 2 mls/hr TITRATE PRN IV 01/30/17 11:30 02/03/17 20:33 Fentanyl Citrate 250 ml @ 5 mls/hr TITRATE PRN IV 01/30/17 15:00 02/11/17 07:46 (Dulcolax Supp) 10 mg DAILY PRN RECTAL 01/30/17 20:00 01/31/17 03:57 (D50w (Syr) Inj) 50 ml UNSCH PRN IV 01/31/17 20:15 01/31/17 20:29 (Levemir Inj) 10 units Q12HR SQ 02/01/17 09:00 02/11/17 08:40 (Trandate Inj) 20 mg Q2H PRN IV PUSH 02/04/17 10:15 02/09/17 13:56 Dexmedetomidine HCl 1000 mcg/ Sodium Chloride 250 ml @ 5.55 mls/hr TITRATE PRN IV 02/04/17 23:45 02/06/17 03:00 (NovoLOG SUPPLEMENTAL SCALE) 1 Q6HR SQ 02/08/17 06:00 Potassium Chloride 100 ml @ 50 mls/hr Q2H PRN IV 02/08/17 08:30 02/08/17 09:22 Potassium Chloride 100 ml @ 50 mls/hr Q2H PRN IV 02/08/17 08:30 (K-Lyte Cl Eff) 50 meq UNSCH PRN PO 02/08/17 08:30 Potassium Chloride 100 ml @ 25 mls/hr UNSCH PRN IV 02/08/17 08:30 Potassium Chloride 100 ml @ 50 mls/hr Q2H PRN IV 02/08/17 08:30 Magnesium Sulfate 4 gm/Sodium Chloride 100 ml @ 50 mls/hr UNSCH PRN IV 02/08/17 08:30 (Mag-Ox) 800 mg UNSCH PRN PO 02/08/17 08:30 Magnesium Sulfate 2 gm/Sodium Chloride 100 ml @ 50 mls/hr UNSCH PRN IV 02/08/17 08:30 (K-Phos) 2,000 mg Q4H PRN PO 02/08/17 08:30 Sodium Phosphate 30 mmol/Sodium Chloride 250 ml @ 42 mls/hr UNSCH PRN IV 02/08/17 08:30 (K-Phos) 2,000 mg UNSCH PRN PO/TUBE 02/08/17 08:30 Potassium Phosphate 30 mmol/ Sodium Chloride 260 ml @ 42 mls/hr UNSCH PRN IV 02/08/17 08:30 02/11/17 08:18 (Prinivil) 5 mg Q12HR PO 02/08/17 13:00 02/11/17 08:39 (Lopressor) 25 mg Q12HR PO 02/08/17 13:00 02/11/17 08:39 Propofol 100 ml @ 3.105 mls/ hr TITRATE PRN IV 02/08/17 17:15 02/10/17 08:57 (Apresoline Inj) 20 mg Q4H PRN IV PUSH 02/09/17 10:00 02/09/17 17:10 (Duoneb Neb) 1 ampule Q6HR NEB NEB 02/09/17 10:00 02/11/17 08:18 Nicardipine HCl 25 mg/Sodium Chloride 260 ml @ 52 mls/hr TITRATE PRN IV 02/09/17 15:15 02/11/17 13:21 (Lasix Inj) 40 mg Q12H IV PUSH 02/11/17 09:30 (Creon 6-19-30) 1 cap UNSCH X1 PRN PO 02/11/17 14:00 02/11/17 16:00 Physical Exam HEENT: normocephalic; atraumatic; no jaundice. CHEST: Easy respirations CARDIAC: Regular rate and rhythm with no murmur gallop or rubs. ABDOMEN: Soft, nondistended, mild diffused tenderness, mid line allie to old surgical wound, ANDREW in place, J tube EXTREMITIES: No clubbing, cyanosis, gen. edema. SKIN: Normal; no rash; no jaundice. HSE ADVISOR: Alert Assessment and Plan Plan ASSESSMENT: - Possible esophageal leak, GI consulted for possible esophageal stent placement. S/P laparoscopic proximal partial gastrectomy with esophageal gastric anastomosis, laparoscopic cholecystectomy, injection of the pylorus with Botox with Dr. Pisano on 01/17/17. Gastrografin swallow (01/22/17)---> findings suspicious for a small leak at the gastroesophageal junction with contrast pooling into an air fluid collection adjacent to the GE junction and distal esophagus. There was an end to side anastomosis performed so it is possible, but felt unlikely, that the collection represents a portion of the proximal stomach. His pathology came back with positive margins and and therefore he underwent open subtotal gastrectomy with gastric and duodenal formation and gastroesophageal an anastomosis, jejunostomy feeding tube placement, bilateral thoracostomy tube placement (01/24/17). He was then evaluated with CT thorax (02/04/17), which did not appreciate any signs of leak, but this was done without oral contrast. GI has been consulted for evaluation for possible esophageal stent placement. D/W Dr. Hong, Dr. Pisano, and Dr Huddleston in radiology. Plan will be for CT scan thorax with oral contrast (feels this will reflux back into the esophagus to show if there is a leak. However , if it does not, they will plan on contrast under fluoro with Dr. Pisano adjusting the NGT. If leak is present, Dr. Hong will then review case for possible esophageal stent placement. - Leukocytosis. ID following. Vanco/Zosyn. - Respiratory failure/Pleural effusions. 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 EGD/colonoscopy (11/30/16)---> Nodule 1 cm distal esophagus, indurated biopsies multiple. Gastritis in antrum/body, duodenitis second portion, bx, retroflex views revealed a small hiatal hernia. Polyp diminutive cecum- cold biopsy with complete removal polyp sessile ascending colon 8 mmc old snare polypectomy with complete removal polyp in the chelated 2 cm hot snare polypectomy random biopsies from the ascending and descending to rule out microscopic colitis, diverticulosis sigmoid, descending. Pathology revealed invasive adenocarcinoma with signet reading features tumor shows strong reactivity first CDX-2 and is negative for CD68 immunostains, cecum polyp tubular adenoma, negative for high grade dysplasia or malignancy, ascending colon polyp tubular adenoma, ascending, descending colon with cold colonic mucosa showing no pathologic abnormalities. Descending colon polyp tubular adenoma. He was then evaluated with EUS (12/07)---> hypoechoic 0.48 x 0.91 lesion of the cardia at the edge of the GE junction, T1a Nx no lymphadenopathy. PET Scan (12/11/16)----> unremarkable study without evidence for active malignancy or metastatic disease. He was then evaluated by oncology (Dr. Luna) and was then referred to surgical oncology. S/P surgery as above. 02-10-17- S/P EGD on (02/09/17)---> Esophagus this was unremarkable up until the distal end where noted inflammation friability with a large fistulous opening with obvious surgical changes and bulging at the anastomosis the bulging was biopsied the fistulous opening we tried to apply some clips but there was too much friability and the clips wouldn't hold The small bowel attached to the esophagus appeared to be unremarkable PLAN: - TF per dietary recommendation - Plan for EGD/stent some time next week - cont. NGT to Viral Hargrove MD Feb 11, 2017 16:02
[2017-02-11] MEDS: PANTOPRAZOLE SODIUM 40 MG VIAL IV SCH (17:48)
[2017-02-12] VITALS (14 sets, daily range): BP systolic 130–159; BP diastolic 56–72; PULSE 83–108; RESP 14–20; TEMP 99–99.9; O2SAT 91–94
[2017-02-12] MEDS: HYDROmorphone HCL PF 1 MG/ML VIAL IV PRN (03:24)
[2017-02-12] MEDS: PIPERACIL-TAZO 4.5 GM PREMIX 100 ML IV SCH ×4 (03:24→20:40)
[2017-02-12] MEDS: niCARdipine INJ 25 MG in SODIUM CHLOR 0.9% 250 ML INJ 250 ML IV PRN ×8 (03:52→23:35)
[2017-02-12] MEDS: RESP: ALBUTEROL 2.5 MG/IPRATROPIUM 0.5 MG NEB (SCH) NEB ×4 (04:22→20:33)
[2017-02-12 05:09] LABS: AUTOMATED NEUTROPHIL # 5.9 TH/MM3 (1.8-7.7); BASOPHIL % 0.4 % (0.0-2.0); EOSINOPHIL # 0.1 TH/MM3 (0-0.4); EOSINOPHIL % 1.2 % (0.0-4.0); HEMATOCRIT 29.3 % (39.0-51.0); HEMO FLAGS DIFF FINAL; LYMPH % 18.2 % (9.0-44.0); LYMPHOCYTE # 1.5 TH/MM3 (1.0-4.8); MEAN CELL VOLUME 93.6 FL (80.0-100.0); MEAN CORPUSCULAR HEMOGLOBIN 31.2 PG (27.0-34.0); MEAN CORPUSCULAR HGB CONC 33.3 % (32.0-36.0); MONO % 10.2 % (0.0-8.0); PLATELET COUNT 424 TH/MM3 (150-450); RED BLOOD COUNT 3.14 MIL/MM3 (4.50-5.90); RED CELL DISTRIBUTION WIDTH 13.5 % (11.6-17.2); WHITE BLOOD COUNT 8.5 TH/MM3 (4.0-11.0)
[2017-02-12 05:29] LABS: BICARBONATE 28.1 MEQ/L (21.0-32.0); POTASSIUM 3.3 MEQ/L (3.5-5.1)
[2017-02-12] MEDS: INSULIN ASPART SUPPLEMENTAL SCALE SQ SCH ×5 (06:00→23:57)
[2017-02-12] MEDS: POTASSIUM PHOSPHATE INJ 30 MMOL in SODIUM CHLOR 0.9% 250 ML INJ 250 ML IV PRN (06:10)
[2017-02-12] MEDS: CHLORHEXIDINE 0.12% (ORAL KIT) 15 ML CUP MT SCH ×2 (08:00→20:00)
[2017-02-12] MEDS: SODIUM CHLORIDE 0.9% FLUSH 10 ML FLUSH IV FLUSH SCH ×3 (08:54→20:40)
[2017-02-12] MEDS: METOPROLOL TARTRATE 25 MG TAB PO SCH ×2 (08:55→20:40)
[2017-02-12] MEDS: LISINOPRIL 5 MG TAB PO SCH ×2 (08:55→20:40)
[2017-02-12] MEDS: FUROSEMIDE 40 MG/4 ML VIAL IV PUSH SCH ×2 (08:56→20:39)
[2017-02-12] MEDS: INSULIN DETEMIR 100 UNITS/ML VIAL SQ SCH ×2 (09:13→20:38)
[2017-02-12] MEDS: VANCOMYCIN INJ 2,000 MG in SODIUM CHLORID 0.9% 500 ML INJ 500 ML IV SCH (10:05)
--- NOTE | 2017-02-12 10:19 | HHI.PR ---
Subjective Subjective Notes Extubated Asking what day it is today Objective Vitals/I&O Vital Signs Date Time Temp Pulse Resp B/P (MAP) Pulse Ox O2 Delivery O2 Flow Rate FiO2 02/12/17 10:00 94 02/12/17 08:59 163/72 02/12/17 08:00 99.7 17 93 02/12/17 07:00 Venturi Mask 6.00 02/12/17 07:00 50 Labs Laboratory Tests Test 02/12/17 04:20 White Blood Count 8.5 Red Blood Count 3.14 Hemoglobin 9.8 Hematocrit 29.3 Mean Corpuscular Volume 93.6 Mean Corpuscular Hemoglobin 31.2 Mean Corpuscular Hemoglobin Concent 33.3 Red Cell Distribution Width 13.5 Platelet Count 424 Mean Platelet Volume 7.1 Neutrophils (%) (Auto) 70.0 Lymphocytes (%) (Auto) 18.2 Monocytes (%) (Auto) 10.2 Eosinophils (%) (Auto) 1.2 Basophils (%) (Auto) 0.4 Neutrophils # (Auto) 5.9 Lymphocytes # (Auto) 1.5 Monocytes # (Auto) 0.9 Eosinophils # (Auto) 0.1 Basophils # (Auto) 0.0 CBC Comment DIFF FINAL Differential Comment Blood Urea Nitrogen 7 Creatinine 0.44 Random Glucose 122 Calcium Level 7.5 Phosphorus Level 1.3 Sodium Level 145 Potassium Level 3.3 Chloride Level 110 Carbon Dioxide Level 28.1 Anion Gap 7 Estimat Glomerular Filtration Rate 194 Date/Time Source Procedure Growth Status 02/07/17 05:00 Blood Peripheral Aerobic Blood Culture - Preliminary NO GROWTH IN 4 DAYS Resulted 02/07/17 05:00 Blood Peripheral Anaerobic Blood Culture - Preliminary NO GROWTH IN 4 DAYS Resulted 02/06/17 09:30 Sputum Endotracheal Gram Stain - Final Complete 02/06/17 09:30 Sputum Endotracheal Sputum Culture - Final Complete 01/27/17 08:00 Urine Catheterized Urine Urine Culture - Final NO GROWTH IN 48 HOURS. Complete 02/04/17 17:00 Wound Abdomen Gram Stain - Final Complete 02/04/17 17:00 Wound Culture - Final Saida Albicans Complete Radiology Last Impressions Chest X-Ray 01/27/17 0600 Signed Impressions: Service Date/Time: Friday, January 27, 2017 04:22 - CONCLUSION: 1. Support apparatus in satisfactory position. Mild basilar airspace disease. No pneumothorax. Trace pleural fluid remains on the left. Jordan Lozano MD Lower Extremity Ultrasound 01/27/17 0000 Signed Impressions: Service Date/Time: Friday, January 27, 2017 12:49 - CONCLUSION: No DVT in either lower extremity. Elijah Funes MD Chest Ultrasound 01/24/17 0000 Signed Impressions: Service Date/Time: Tuesday, January 24, 2017 11:13 - CONCLUSION: 1. Large left pleural effusion. Jayson Das MD Chest CT 01/23/17 0000 Signed Impressions: Service Date/Time: Monday, January 23, 2017 18:54 - CONCLUSION: 1. Moderate-sized bilateral pleural effusions. Right pleural effusion has several small areas of loculation as above. 2. Bilateral lower lobe consolidation. 3. Somewhat mass like fullness in the right infrahilar region. A contrast- enhanced CT of the chest is recommended, preferably after resolution of pleural effusions and bibasilar consolidation. Gonzales Pierre MD Upper GI/Barium Swallow X-Ray 01/22/17 0000 Signed Impressions: Service Date/Time: Sunday, January 22, 2017 12:29 - CONCLUSION: 1. Findings suspicious for a small leak at the gastroesophageal junction with contrast pooling into an air fluid collection adjacent to the GE junction and distal esophagus. There was an end to side anastomosis performed so it is possible, but felt unlikely, that the collection represents a portion of the proximal stomach. 2. Findings were discussed with Dr. Ritchie. Gonzales Ramsay MD Abdomen CT 01/22/17 0000 Signed Impressions: Service Date/Time: Sunday, January 22, 2017 17:12 - CONCLUSION: 1. There is an abnormal air and fluid collection located to the right of the GE junction adjacent to the proximal stomach. It extends into the posterior mediastinum. The current appearance and findings on fluoroscopy examination earlier today are indicative of a leak at the anastomosis. The current surgical drain is not directly adjacent to the collection and based on the location I do not think that we could place a drain in an appropriate location percutaneously. 2. Small bilateral pleural effusions with associated atelectasis and/or consolidation in both lower lobes. Gonzales Ramsay MD Cardiovascular: Regular Lungs: Clear Abdomen: Other (midline incision with allie removed and steri strips in place ; ANDREW RIGHT with serous drainge; ANDREW LEFT with pus like drainage ), Post-op tenderness Extremities: Other (see below ) Narrative Exam Moderate scrotal edema Moderate generalized edema A/P Problem List: (1) Primary adenocarcinoma of distal third of esophagus ICD Codes: C15.5 - Malignant neoplasm of lower third of esophagus Status: Acute (2) Atrial fibrillation with RVR ICD Codes: I48.91 - Unspecified atrial fibrillation Status: Acute (3) Acute hypoxemic respiratory failure ICD Codes: J96.01 - Acute respiratory failure with hypoxia Status: Acute (4) Gastric adenocarcinoma ICD Codes: C16.9 - Malignant neoplasm of stomach, unspecified Status: Acute Assessment and Plan 66 year old male s/p laparoscopic gastrectomy and cholecystectomy with Botox injection; s/p bilateral thoracostomy tube placement; open subtotal gastrectomy ; jejunostomy tube placement -GI planning for esophagus stent placement this week -NGT to [facility]WS -IVF -Low grade fevers; WBC 8.5 -Tolerating TF at goal -Continue ANDREW management Attending Note - Dr. Marquez Abdomen soft; ANDREW outputs minimal Stent placement tomorrow? The exam, history, and the medical decision-making described in the above note were completed with the assistance of the mid-level provider. I reviewed and agree with the findings presented. I attest that I had a [id number] encounter with the patient on the same day, and personally performed and documented my assessment and findings in the medical record. Es Solis Feb 12, 2017 10:19 Jose Marquez MD Feb 12, 2017 16:09
[2017-02-12] MEDS: FLUCONAZOLE 400 MG PREMIX BAG 200 ML IV SCH (11:20)
[2017-02-12] MEDS: LABETALOL HCL 100 MG/20 ML VIAL IV PUSH PRN (11:21)
--- NOTE | 2017-02-12 12:24 | HHI.CCPN ---
Subjective Remarks/Hospital Course 66 y/o man has developed respiratory failure following a laparoscopic partial gastrectomy performed 01/17. He was brought to the [facility] where I met him on his arrival. Intubated for hypoxemic failure and lines placed. After 2 liters NS patient making > 40 ml/hr urine. Arrived in atrial fibrillation with rate 160s, converted after fluid, analgesia, and lopressor 5 mg X 1.Loaded with antibiotics. Family is aware. 01/25: Completion gastric resection and resuscitation. Urine output marginal but perfusion good. Tapering vasopressors. 01/26: Off all vasopressors. Tmax 100.4. Currently 100.2. Tolerating TPN. White cell count elevated 27,000. Arousable and follows commands on the ventilator. Subjective 01/27: Tmax 101.5. Pancultured including blood 2 from peripheral access and sputum. Added vancomycin. Arousable doesn't follow commands. Cultures sent from around surgical site. 01/28: Remains sedated, orally intubated on mechanical ventilation. 01/29: Remains sedated, orally intubated on mechanical ventilation. Remains febrile. 01/30: Remains sedated, orally intubated on mechanical ventilation. 01/31: Remains sedated, orally intubated on mechanical ventilation. Off TPN since 01/30. J-tube feeds being advanced to goal. Still febrile. Lipscomb cultures ordered. 02/01: Remains sedated, orally intubated on mechanical ventilation. Failing C Pap trials. Still having fevers. WBCs down to 11,000. 02/02: Remains sedated, orally intubated on mechanical ventilation. Tolerating J -tube feeds. Still having temperature spikes. 02/03: Sedated, arousable, orally intubated on mechanical ventilation. Tolerating J-tube feeds. Continues to have fever. Failing C Pap trials. 02/04: Sedated, arousable, orally intubated on mechanical ventilation. Tolerating J-tube feeds. Continues to have intermittent fevers. Failing C Pap trials. A.m. labs pending 02/05: Extubated on 02/04, requiring 50% Ventimask. Underwent CT chest abdomen pelvis which revealed presence of air-fluid level extraluminally including oral contrast extending into posterior mediastinum. 02/06: Patient was placed on BiPAP last night for worsening respiratory distress. He was intubated this morning as his respiratory effort was increasing as well as in view of concern for his anastomotic site with leak. I had a detailed discussion with patient's prior to proceeding with intubation and patient was placed on mechanical ventilation subsequently. I also placed a new left subclavian central line following intubation. Patient was subsequent only sedated with propofol. He was hypertensive prior to intubation with no episodes of hypotension noted. He was lucid and following commands prior to intubation. Right sided isidro drain continues to have cloudy greenish yellow purulent drainage. 02/07: Comfortable and well oxygenated on PRVC vent mode. Care plan has been explained to spouse. 02/08: T max 100.0, normotensive. Alert, tolerating J-tube feeds. Plan is for conservative management of leak with percutaneous drainage if collection develops. Palliative care service has contacted . 02/09: Patient is alert awake tolerating CPAP. Hypotensive receiving labetalol and hydralazine when necessary. Bilateral drains with 20 mL output in [address] chest showed leak involving GE junction- probable stent by GI today. 02/10: Acceptable parameters on CPAP/SBT. Extubated without event. A bit excess fluid, redouble diuretics today. Replace K. 02/11: Extubated about 20 hours ago, breathing comfortably. Lungs clear, strong cough effort. Still edematous, continue active diuresis. 02/12: Continued excellent diuresis should help reduce effusions. Breathing remains acceptably comfortable. Tolerating extubation well. Objective Vital Signs Date Time Temp Pulse Resp B/P (MAP) Pulse Ox O2 Delivery O2 Flow Rate FiO2 02/12/17 11:49 73 144/67 02/12/17 08:00 99.7 17 93 02/12/17 07:00 Venturi Mask 6.00 02/12/17 07:00 50 Intake and Output 02/12/17 02/12/17 02/13/17 08:00 16:00 00:00 Intake Total 1917 ml 354 ml Output Total 3500 ml Balance -1583 ml 354 ml Result Diagram: 02/12/17 0420 02/12/17 0420 Imaging Last 48 hours Impressions Chest X-Ray 02/01/17 0600 Signed Impressions: Service Date/Time: January 05:12 - CONCLUSION: 1. Support apparatus in good position. Bilateral chest tubes without pneumothorax. Basal airspace disease. Jordan Lozano MD Chest X-Ray 02/01/17 0000 Signed Impressions: Service Date/Time: January 21:16 - CONCLUSION: 1. No pneumothorax or significant change following right chest tube removal. There is stable consolidation versus atelectasis in the right lower lung zone. 2. Left chest tube is present and no pneumothorax is visualized. There is stable left basilar opacity. Gonzales Ramsay MD Last Impressions Chest X-Ray 01/27/17 0600 Signed Impressions: Service Date/Time: Friday, January 27, 2017 04:22 - CONCLUSION: 1. Support apparatus in satisfactory position. Mild basilar airspace disease. No pneumothorax. Trace pleural fluid remains on the left. Jordan Lozano MD Chest Ultrasound 01/24/17 0000 Signed Impressions: Service Date/Time: Tuesday, January 24, 2017 11:13 - CONCLUSION: 1. Large left pleural effusion. Jayson Das MD Chest CT 01/23/17 0000 Signed Impressions: Service Date/Time: Monday, January 23, 2017 18:54 - CONCLUSION: 1. Moderate-sized bilateral pleural effusions. Right pleural effusion has several small areas of loculation as above. 2. Bilateral lower lobe consolidation. 3. Somewhat mass like fullness in the right infrahilar region. A contrast- enhanced CT of the chest is recommended, preferably after resolution of pleural effusions and bibasilar consolidation. Gonzales Pierre MD Upper GI/Barium Swallow X-Ray 01/22/17 0000 Signed Impressions: Service Date/Time: Sunday, January 22, 2017 12:29 - CONCLUSION: 1. Findings suspicious for a small leak at the gastroesophageal junction with contrast pooling into an air fluid collection adjacent to the GE junction and distal esophagus. There was an end to side anastomosis performed so it is possible, but felt unlikely, that the collection represents a portion of the proximal stomach. 2. Findings were discussed with Dr. Ritchie. Gonzales Ramsay MD Abdomen CT 01/22/17 0000 Signed Impressions: Service Date/Time: Sunday, January 22, 2017 17:12 - CONCLUSION: 1. There is an abnormal air and fluid collection located to the right of the GE junction adjacent to the proximal stomach. It extends into the posterior mediastinum. The current appearance and findings on fluoroscopy examination earlier today are indicative of a leak at the anastomosis. The current surgical drain is not directly adjacent to the collection and based on the location I do not think that we could place a drain in an appropriate location percutaneously. 2. Small bilateral pleural effusions with associated atelectasis and/or consolidation in both lower lobes. Gonzales Ramsay MD Objective Remarks Gen: 66-year-old male, alert, exhausted Head: NL. Atraumatic. Neck: Airway widely patent. Lungs: Improved breath sounds both bases, otherwise clear. Mild tachypnea persists. Heart: NL S1S2, no murmur, rub. No JVD. Hypertensive. Abdomen: Mildly distended, soft, nontender. Isidro drain on left/right. J-tube on left, minimal output. Extremities: Warm, dry. Well perfused. Trace edema both legs/feet.. Neuro: Follows commands. Moves 4 limbs spontaneously. YESENIA. Conversant, oriented to place, person. Line: Central Venous Catheter A/P Problem List: (1) Acute hypoxemic respiratory failure ICD Code: J96.01 - Acute respiratory failure with hypoxia Status: Acute (2) Primary adenocarcinoma of distal third of esophagus ICD Code: C15.5 - Malignant neoplasm of lower third of esophagus Status: Acute (3) S/P gastrectomy ICD Code: Z90.3 - Acquired absence of stomach [part of] Assessment and Plan Neuro/Psych: Postop pain control Chronic Benzodiazepine use Chronic muscle relaxant use Reintubated on 02/06 and placed on propofol for sedation. Hold propofol today for weaning trial. Continue on fentanyl for pain control Patient is on alprazolam 0.25 mg twice a day and diazepam 5 mill grams twice a day when necessary for anxiety at home. Patient is on Flexeril as needed muscle relaxant at home. CV: A. fib with RVR currently normal sinus rhythm History of hypertension History of dyslipidemia Holding home medications of amlodipine 5 mg twice a day and losartan 50 mg twice a day. Use hydralazine IV and labetalol IV when necessary for SBP more than 170 TPN stopped 01/30. J-tube feeds advanced to goal. Lasix 40 mg IV bid daily for 2-3 more days. Resp: Acute hypercapnic respiratory failure Bilateral pleural effusions Extubated on 02/04, required reintubation on 02/06 for worsening respiratory distress probably secondary to anastomotic leak. Continue mechanical ventilation, vent bundle. Tolerating spontaneous breathing trials. Leave intubated for EGD today to evaluate for stent placement Scheduled due nebs every 6 hours with albuterol nebulizers every 2 hours. Right pigtail catheter removed on 02/01, left pigtail catheter removed by surgery 02/02 Extubated 02/11. GI: 01/19 -cholecystectomy, proximal gastrectomy with GE junction anastomosis and Botox injection by Dr. Ritchie 01/24 - bilateral chest tubes/open subtotal gastrectomy and jejunostomy placement Gastroesophageal reflux disease Currently on pantoprazole 40 mg IV daily Isidro tubes left/right, 20 ml output in 24 hours. J-tube feeds at 50 cc an hour as tolerated. Discussed with Dr. Howard covering for Dr. Ritchie regarding CT findings from 02/04 showing extraluminal air in fluid with contrast extending into posterior mediastinum and greenish yellow cloudy purulent drainage from Isidro drain raising concern for anastomotic leak. Per Dr. Ritchie to decide further surgical options -> conservative Rx for now. Clinically improving CT chest 02/08/17 showed leak at the GE junction. EGD today to evaluate for stent placement 02/13 : Soto catheter for accurate I's and O's in a critically ill patient Endo: Sliding-scale insulin with NovoLog every 4 hours/medium. Levemir 10 units twice a day Renal: Strict intake output, monitor and replete electrolytes, follow BUN/creatinine. Heme: Leukocytosis Normocytic anemia Monitor CBC daily. Follow trends ID: Currently on Zosyn, added vancomycin 01/27. Added fluconazole 400mg daily on for mae from ANDREW drain. Stopped levaquin 02/01 All blood cultures negative so far. Wound culture with mae. Lipscomb cultures sent on 01/31, 06/12 blood culture with Staph Warneri ? contaminant. ID Dr. Pate following Remains on antibiotics per ID. FEN: Replace electrolytes as clinically indicated Nutrition - Prealbumin , J tube feeds uninterrupted. MSK: Range of motion Access - Right subclavian CVL 01/24, right upper extremity PICC placed 01/23 ( discontinue 02/01). Discontinued right radial arterial line 01/27 Prophylaxis - GI - pantoprazole - DVT - SCD/pharmacological prophylaxis. Overall impression: Nutrition and infection control will be the mainstays of treatment for now. Stent perhaps this week. Generalized edema is resolving. Tolerating extubation well, no distress. Pk Romero MD Feb 12, 2017 12:24
[2017-02-12] MEDS: fentaNYL DRIP 250 ML IV PRN (13:42)
--- NOTE | 2017-02-12 14:15 | HHI.GIFU ---
Subjective Remarks Lying in bed in no distress. Esophageal stent planned for Sunday. Objective Vitals I&O Vital Signs Date Time Temp Pulse Resp B/P (MAP) Pulse Ox O2 Delivery O2 Flow Rate FiO2 02/12/17 12:00 88 02/12/17 12:00 99.0 83 20 130/64 (86) 91 02/12/17 11:49 73 144/67 02/12/17 10:00 94 02/12/17 08:59 107 163/72 02/12/17 08:00 99.7 104 17 145/72 (96) 93 02/12/17 08:00 104 02/12/17 07:00 93 Venturi Mask 6.00 02/12/17 07:00 93 Venturi Mask 6.00 50 02/12/17 06:10 110 134/68 02/12/17 06:00 108 02/12/17 04:00 106 02/12/17 04:00 99.7 106 16 141/71 (94) 91 02/12/17 03:52 109 133/70 02/12/17 02:00 98 02/12/17 00:00 99.9 92 17 143/67 (92) 93 02/12/17 00:00 92 02/11/17 22:00 90 02/11/17 21:43 108 142/64 02/11/17 21:16 93 Nasal Cannula 6.00 02/11/17 20:00 108 02/11/17 20:00 99.3 105 17 149/69 (95) 94 02/11/17 18:00 109 02/11/17 17:46 110 158/73 02/11/17 16:01 110 153/71 02/11/17 16:00 99.0 106 16 145/63 (90) 93 02/11/17 16:00 106 I/O 02/11/17 02/11/17 02/11/17 02/12/17 02/12/17 02/12/17 06:59 14:59 22:59 06:59 14:59 22:59 Intake Total 536 ml 520 ml 3193 ml 1917 ml 354 ml Output Total 2260 ml 2460 ml 3500 ml Balance -1724 ml 520 ml 733 ml -1583 ml 354 ml IV Total 520 ml 2786 ml 1917 ml 354 ml Tube Feeding 476 ml 347 ml Other 60 ml 60 ml Output Urine Total 2200 ml 2450 ml 3200 ml Stool Total 50 ml 0 ml 300 ml Gastric Drainage Total 0 ml 0 ml Drainage Total 10 ml 10 ml Laboratory Laboratory Tests Test 02/12/17 04:20 White Blood Count 8.5 Red Blood Count 3.14 Hemoglobin 9.8 Hematocrit 29.3 Mean Corpuscular Volume 93.6 Mean Corpuscular Hemoglobin 31.2 Mean Corpuscular Hemoglobin Concent 33.3 Red Cell Distribution Width 13.5 Platelet Count 424 Mean Platelet Volume 7.1 Neutrophils (%) (Auto) 70.0 Lymphocytes (%) (Auto) 18.2 Monocytes (%) (Auto) 10.2 Eosinophils (%) (Auto) 1.2 Basophils (%) (Auto) 0.4 Neutrophils # (Auto) 5.9 Lymphocytes # (Auto) 1.5 Monocytes # (Auto) 0.9 Eosinophils # (Auto) 0.1 Basophils # (Auto) 0.0 CBC Comment DIFF FINAL Differential Comment Blood Urea Nitrogen 7 Creatinine 0.44 Random Glucose 122 Calcium Level 7.5 Phosphorus Level 1.3 Sodium Level 145 Potassium Level 3.3 Chloride Level 110 Carbon Dioxide Level 28.1 Anion Gap 7 Estimat Glomerular Filtration Rate 194 Date/Time Source Procedure Growth Status 02/07/17 05:00 Blood Peripheral Aerobic Blood Culture - Final NO GROWTH IN 5 DAYS Complete 02/07/17 05:00 Blood Peripheral Anaerobic Blood Culture - Final NO GROWTH IN 5 DAYS Complete 02/06/17 09:30 Sputum Endotracheal Gram Stain - Final Complete 02/06/17 09:30 Sputum Endotracheal Sputum Culture - Final Complete 01/27/17 08:00 Urine Catheterized Urine Urine Culture - Final NO GROWTH IN 48 HOURS. Complete 02/04/17 17:00 Wound Abdomen Gram Stain - Final Complete 02/04/17 17:00 Wound Culture - Final Saida Albicans Complete Imaging Last Impressions Chest X-Ray 02/09/17 0000 Signed Impressions: Service Date/Time: Thursday, February 09, 2017 10:08 - CONCLUSION: Interval improvement with persistent consolidative changes left base. Rivas Das MD FACR Chest CT 02/08/17 0000 Signed Impressions: Service Date/Time: January 15:50 - CONCLUSION: 1. Leak involving the GE junction as detailed in the above discussion. 2. Slight decrease in size of the small bilateral pleural effusions. 3. Unchanged bibasilar infiltrates. Chalino Olmedo Jr., MD Abdomen/Pelvis CT 02/04/17 0000 Signed Impressions: Service Date/Time: Saturday, February 04, 2017 23:18 - CONCLUSION: 1. No abscess is visualized, as questioned. However, there continues to be a small amount of fluid and air that appears extraluminal and located adjacent to the proximal stomach and extending into the posterior mediastinum adjacent to the distal esophagus. The right subhepatic drain is located near a portion of the fluid collection. There is also trace free fluid in the pelvis. 2. Anasarca. 3. Please refer to chest CT report for description of the supradiaphragmatic findings. Gonzales Ramsay MD Lower Extremity Ultrasound 01/27/17 0000 Signed Impressions: Service Date/Time: Friday, January 27, 2017 12:49 - CONCLUSION: No DVT in either lower extremity. Elijah Funes MD Chest Ultrasound 01/24/17 0000 Signed Impressions: Service Date/Time: Tuesday, January 24, 2017 11:13 - CONCLUSION: 1. Large left pleural effusion. Jayson Das MD Upper GI/Barium Swallow X-Ray 01/22/17 0000 Signed Impressions: Service Date/Time: Sunday, January 22, 2017 12:29 - CONCLUSION: 1. Findings suspicious for a small leak at the gastroesophageal junction with contrast pooling into an air fluid collection adjacent to the GE junction and distal esophagus. There was an end to side anastomosis performed so it is possible, but felt unlikely, that the collection represents a portion of the proximal stomach. 2. Findings were discussed with Dr. Ritchie. Gonzales Ramsay MD Abdomen CT 01/22/17 0000 Signed Impressions: Service Date/Time: Sunday, January 22, 2017 17:12 - CONCLUSION: 1. There is an abnormal air and fluid collection located to the right of the GE junction adjacent to the proximal stomach. It extends into the posterior mediastinum. The current appearance and findings on fluoroscopy examination earlier today are indicative of a leak at the anastomosis. The current surgical drain is not directly adjacent to the collection and based on the location I do not think that we could place a drain in an appropriate location percutaneously. 2. Small bilateral pleural effusions with associated atelectasis and/or consolidation in both lower lobes. Gonzales Ramsay MD Physical Exam HEENT: Normocephalic; atraumatic CHEST: CTA. Mild tachypnea CARDIAC: RRR with no murmur gallop or rubs. ABDOMEN: Soft, obese, mildly distended, mild diffuse TTP. Midline incision with steri strips in place. ANDREW at right/left. EXTREMITIES: Trace edema at BLE SKIN: Normal; no rash; no jaundice. 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 S/P laparoscopic proximal partial gastrectomy with esophageal gastric anastomosis, laparoscopic cholecystectomy, injection of the pylorus with Botox with Dr. Pisano on 01/17/17. Gastrografin swallow (01/22/17)---> findings suspicious for a small leak at the gastroesophageal junction with contrast pooling into an air fluid collection adjacent to the GE junction and distal esophagus. There was an end to side anastomosis performed so it is possible, but felt unlikely, that the collection represents a portion of the proximal stomach. His pathology came back with positive margins and and therefore he underwent open subtotal gastrectomy with gastric and duodenal formation and gastroesophageal an anastomosis, jejunostomy feeding tube placement, bilateral thoracostomy tube placement (01/24/17). He was then evaluated with CT thorax (02/04/17), which did not appreciate any signs of leak, but this was done without oral contrast. GI has been consulted for evaluation for possible esophageal stent placement. D/W Dr. Hong, Dr. Pisano, and Dr Huddleston in radiology. Plan will be for CT scan thorax with oral contrast (feels this will reflux back into the esophagus to show if there is a leak. However , if it does not, they will plan on contrast under fluoro with Dr. Pisano adjusting the NGT. If leak is present, Dr. Hong will then review case for possible esophageal stent placement. - Leukocytosis. ID following. Vanco/Zosyn. - Respiratory failure/Pleural effusions. 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 EGD/colonoscopy (11/30/16)---> Nodule 1 cm distal esophagus, indurated biopsies multiple. Gastritis in antrum/body, duodenitis second portion, bx, retroflex views revealed a small hiatal hernia. Polyp diminutive cecum- cold biopsy with complete removal polyp sessile ascending colon 8 mmc old snare polypectomy with complete removal polyp in the chelated 2 cm hot snare polypectomy random biopsies from the ascending and descending to rule out microscopic colitis, diverticulosis sigmoid, descending. Pathology revealed invasive adenocarcinoma with signet reading features tumor shows strong reactivity first CDX-2 and is negative for CD68 immunostains, cecum polyp tubular adenoma, negative for high grade dysplasia or malignancy, ascending colon polyp tubular adenoma, ascending, descending colon with cold colonic mucosa showing no pathologic abnormalities. Descending colon polyp tubular adenoma. He was then evaluated with EUS (12/07)---> hypoechoic 0.48 x 0.91 lesion of the cardia at the edge of the GE junction, T1a Nx no lymphadenopathy. PET Scan (12/11/16)----> unremarkable study without evidence for active malignancy or metastatic disease. He was then evaluated by oncology (Dr. Luna) and was then referred to surgical oncology. S/P surgery as above. 02-10-17- S/P EGD on (02/09/17)---> Esophagus this was unremarkable up until the distal end where noted inflammation friability with a large fistulous opening with obvious surgical changes and bulging at the anastomosis the bulging was biopsied the fistulous opening we tried to apply some clips but there was too much friability and the clips wouldn't hold The small bowel attached to the esophagus appeared to be unremarkable 02/12/17--Patient doing well today. HH stable 9.8/29.3. WBC normal. Plan for stent placement tomorrow. PLAN: - EGD with stent placement Sunday - NPO after MN tonight - TF per dietary recommendation - Continue NGT to LIWS - IVF - Supportive care - Further recommendations to follow based on results of above Patient seen and examined by Dr. Rod and myself and this note is written on his behalf. Yana Bah Feb 12, 2017 14:15
[2017-02-12] MEDS: ENOXAPARIN SODIUM 30 MG/0.3 ML SYRINGE SQ SCH (15:14)
[2017-02-12] MEDS: PANTOPRAZOLE SODIUM 40 MG VIAL IV SCH (17:14)
--- NOTE | 2017-02-12 17:41 | HHI.IDPN ---
Subjective Subjective Remarks Mr. 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 He was staged at a T1a,Nx based on EUS, CT thorax/Abd/pelvis and PET scan. Pt follows with Dr. Nickolas Luna for Oncology. He was admitted to [facility] on 01/17/17 for Laparoscopic gastrectomy and cholecystectomy with Botox injection with Dr. Ritchie. Patient was later being followed by hospitalist team and postoperatively he was hypoxic in the low 80s and due to ongoing concern for worsening infection patient was eventually taken to the OR on January 24, 2017. He underwent bilateral chest tube placement, also underwent open subtotal gastrectomy(70% of the stomach was removed per OR notes). Intraoperatively there was an anastomotic leak as well as mild adhesions and a small pocket of infection noted. 2 ANDREW drains were left in place and patient underwent revision of the gastroesophageal anastomosis. Patient underwent placement of a jejunostomy in the NG tube. After this he seemed to be doing okay but on January 27 he started spiking temperatures of 101 with a WBC count of 27.9. On January 31 patient again spiked another temperature on 101 while on IV antibiotics and his WBC increased to 18.1 he was pancultured on January 27 and again underwent further cultures testing on January 31. Postoperatively it appears that patient has been intubated in the ICU. He got extubated only today on February 04, 2017. He has a Soto that was placed on January 24, 2017. He has a triple lumen catheter which was placed on January 31, 2017. He additionally had a PICC line was placed on January 23 which has now been discontinued. At the time of my evaluation patient is in ISC extubated a few hours back and seems to be doing fairly okay. He often gets a little agitated and is mumbling to himself. He has fairly okay urine output. He has diarrhea and C. difficile test has been sent. I examined the wound with Dr. Ritchie and it appears that the bottom few stitches appear erythematous and one of them had very minimal specks of discharge. Dr. Ritchie removed these sutures and drained the minimal purulent material and this was sent for cultures. Staphylococcus Warneri was identified from one of the 4 cultures. Patient is currently on vancomycin repeat cultures were ordered by me today. Patient has a ANDREW drain which has grayish white drainage noted large amounts. Reportedly the fluid was initially clear and now has turned the grayish white color. Infectious disease is consulted for evaluation and management of sepsis and a postop patient. Notes reviewed Low grade fevers. NO rash No diarrhea RN informs me plan for GI procedure with Esoph. stent placement. D/W RN On nasal O2 Not SOB Getting TF BP ok WBC down to normal Antibiotics Zosyn IV Vanco IV Fluconazole IV Lines Line sites with no e.o infection. Past Medical History reviewed. Allergies: Coded Allergies: amlodipine (Unverified Allergy, Severe, MUSCLE PAIN, 01/23/17) atorvastatin (Unverified Allergy, Severe, MUSCLE PAIN, 01/23/17) pravastatin (Unverified Allergy, Severe, MUSCLE PAIN, 01/23/17) simvastatin (Unverified Allergy, Severe, MUSCLE PAIN, 01/23/17) Objective . Vital Signs Date Time Temp Pulse Resp B/P (MAP) Pulse Ox O2 Delivery O2 Flow Rate FiO2 02/12/17 16:00 96 02/12/17 16:00 99.5 97 14 137/60 (85) 94 02/12/17 15:13 96 142/65 02/12/17 14:00 91 02/12/17 12:00 88 02/12/17 12:00 99.0 83 20 130/64 (86) 91 02/12/17 11:49 73 144/67 02/12/17 10:00 94 02/12/17 08:59 107 163/72 02/12/17 08:00 99.7 104 17 145/72 (96) 93 02/12/17 08:00 104 02/12/17 07:00 93 Venturi Mask 6.00 02/12/17 07:00 93 Venturi Mask 6.00 50 02/12/17 06:10 110 134/68 02/12/17 06:00 108 02/12/17 04:00 106 02/12/17 04:00 99.7 106 16 141/71 (94) 91 02/12/17 03:52 109 133/70 02/12/17 02:00 98 02/12/17 00:00 99.9 92 17 143/67 (92) 93 02/12/17 00:00 92 02/11/17 22:00 90 02/11/17 21:43 108 142/64 02/11/17 21:16 93 Nasal Cannula 6.00 02/11/17 20:00 108 02/11/17 20:00 99.3 105 17 149/69 (95) 94 02/11/17 18:00 109 02/11/17 17:46 110 158/73 02/12/17 02/12/17 02/13/17 15:00 23:00 07:00 Intake Total 854 ml 98 ml Balance 854 ml 98 ml IV Total 854 ml 98 ml . Laboratory Tests Test 02/12/17 04:20 White Blood Count 8.5 TH/MM3 Red Blood Count 3.14 MIL/MM3 Hemoglobin 9.8 GM/DL Hematocrit 29.3 % Mean Corpuscular Volume 93.6 FL Mean Corpuscular Hemoglobin 31.2 PG Mean Corpuscular Hemoglobin Concent 33.3 % Red Cell Distribution Width 13.5 % Platelet Count 424 TH/MM3 Mean Platelet Volume 7.1 FL Neutrophils (%) (Auto) 70.0 % Lymphocytes (%) (Auto) 18.2 % Monocytes (%) (Auto) 10.2 % Eosinophils (%) (Auto) 1.2 % Basophils (%) (Auto) 0.4 % Neutrophils # (Auto) 5.9 TH/MM3 Lymphocytes # (Auto) 1.5 TH/MM3 Monocytes # (Auto) 0.9 TH/MM3 Eosinophils # (Auto) 0.1 TH/MM3 Basophils # (Auto) 0.0 TH/MM3 CBC Comment DIFF FINAL Differential Comment Laboratory Tests Test 02/11/17 05:10 02/12/17 04:20 Blood Urea Nitrogen 5 MG/DL 7 MG/DL Creatinine 0.47 MG/DL 0.44 MG/DL Random Glucose 142 MG/DL 122 MG/DL Calcium Level 7.6 MG/DL 7.5 MG/DL Phosphorus Level 1.3 MG/DL 1.3 MG/DL Magnesium Level 2.1 MG/DL Sodium Level 146 MEQ/L 145 MEQ/L Potassium Level 3.1 MEQ/L 3.3 MEQ/L Chloride Level 107 MEQ/L 110 MEQ/L Carbon Dioxide Level 30.6 MEQ/L 28.1 MEQ/L Anion Gap 8 MEQ/L 7 MEQ/L Estimat Glomerular Filtration Rate 180 ML/MIN 194 ML/MIN Imaging Last Impressions Chest X-Ray 02/06/17 0600 Signed Impressions: Service Date/Time: Monday, February 06, 2017 04:30 - CONCLUSION: Stable chest x-ray with small left pleural effusion and bilateral interstitial and airspace opacities. Gonzales Ramsay MD Chest CT 02/04/17 0000 Signed Impressions: Service Date/Time: Saturday, February 04, 2017 23:18 - CONCLUSION: 1. Small bilateral pleural effusions, decreased in volume from the prior study with adjacent compressive atelectasis in the lower lobes and possible consolidation. 2. Mediastinal and bilateral hilar lymphadenopathy. 3. Please refer to abdomen and pelvis CT report for description of the subdiaphragmatic findings. Gonzales Ramsay MD Abdomen/Pelvis CT 02/04/17 0000 Signed Impressions: Service Date/Time: Saturday, February 04, 2017 23:18 - CONCLUSION: 1. No abscess is visualized, as questioned. However, there continues to be a small amount of fluid and air that appears extraluminal and located adjacent to the proximal stomach and extending into the posterior mediastinum adjacent to the distal esophagus. The right subhepatic drain is located near a portion of the fluid collection. There is also trace free fluid in the pelvis. 2. Anasarca. 3. Please refer to chest CT report for description of the supradiaphragmatic findings. Gonzales Ramsay MD Lower Extremity Ultrasound 01/27/17 0000 Signed Impressions: Service Date/Time: Friday, January 27, 2017 12:49 - CONCLUSION: No DVT in either lower extremity. Elijah Funes MD Chest Ultrasound 01/24/17 0000 Signed Impressions: Service Date/Time: Tuesday, January 24, 2017 11:13 - CONCLUSION: 1. Large left pleural effusion. Jayson Das MD Upper GI/Barium Swallow X-Ray 01/22/17 0000 Signed Impressions: Service Date/Time: Sunday, January 22, 2017 12:29 - CONCLUSION: 1. Findings suspicious for a small leak at the gastroesophageal junction with contrast pooling into an air fluid collection adjacent to the GE junction and distal esophagus. There was an end to side anastomosis performed so it is possible, but felt unlikely, that the collection represents a portion of the proximal stomach. 2. Findings were discussed with Dr. Ritchie. Gonzales Ramsay MD Abdomen CT 01/22/17 0000 Signed Impressions: Service Date/Time: Sunday, January 22, 2017 17:12 - CONCLUSION: 1. There is an abnormal air and fluid collection located to the right of the GE junction adjacent to the proximal stomach. It extends into the posterior mediastinum. The current appearance and findings on fluoroscopy examination earlier today are indicative of a leak at the anastomosis. The current surgical drain is not directly adjacent to the collection and based on the location I do not think that we could place a drain in an appropriate location percutaneously. 2. Small bilateral pleural effusions with associated atelectasis and/or consolidation in both lower lobes. Gonzales Ramsay MD Physical Exam GENERAL: Awake and alert, comfotable, on nasal O2 SKIN: No rashes, ecchymoses or lesions. Cool and dry. HEAD: Atraumatic. Normocephalic. No temporal or scalp tenderness. EYES: Pupils equal round and reactive. Extraocular motions intact. No scleral icterus. No injection or drainage. ENT: Nose without bleeding, purulent drainage or septal hematoma. Throat without erythema, tonsillar hypertrophy or exudate. Uvula midline. Airway patent. NECK: Trachea midline. Supple, nontender, no meningeal signs. CARDIOVASCULAR: Regular rate and rhythm without murmurs, gallops, or rubs. RESPIRATORY: Clear to auscultation. Breath sounds equal bilaterally. No wheezes , rales, or rhonchi. GASTROINTESTINAL: Midline surgical site, dry, has allie in place, dry, and there is a dry scab in lower portion, no erythema. ANDREW drain on right with slightly cloudy yellow fluic. ANDREW on left with purulent fluid. MUSCULOSKELETAL: Extremities without clubbing, cyanosis. Pedal edema noted. No calf tenderness. Negative Homans sign bilaterally. NEUROLOGICAL: Awake and alert. Grossly non focal Psych: cooperative IV line sites with no e.o infection. 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 He was staged at a T1a,Nx based on EUS. January 17, 2017 status post lap cholecystectomy, lap partial gastrectomy with Esophageal gastrointestinal anastomosis and Botox injection in the esophagus. January 24, 2017 bilateral chest tube placement for pleural effusions, open subtotal gastrectomy with gastric conduit formation, GE anastomosis, jejunostomy and feeding tube placement. Intra-abdominal abscess likely secondary to anastomotic leak Acute mediastinitis, possible mediastinal abscess. Due to persistent fevers as well as change in the drain fluid to white quiroz color there is a concern for ongoing fungal infection. Patient temps seem to have defervesced after addition of Diflucan. C.Albicans from wound site ? SSI. New fevers: ? drug fever Recommendations Continue Zosyn IV DC Vanco IV (? drug fevers) Continue Diflucan IV Follow cultures Follow clinically D/W Kaia Lundberg MD Feb 12, 2017 17:40
[2017-02-12 18:31] LABS: POTASSIUM 3.5 MEQ/L (3.5-5.1)
[2017-02-12] MEDS: LORazepam 2 MG/ML VIAL IV PRN (19:03)
[2017-02-13] VITALS (14 sets, daily range): BP systolic 119–154; BP diastolic 58–73; PULSE 86–101; RESP 15–22; TEMP 99.3–99.9; O2SAT 92–100
[2017-02-13] MEDS: niCARdipine INJ 25 MG in SODIUM CHLOR 0.9% 250 ML INJ 250 ML IV PRN ×3 (03:06→08:52)
[2017-02-13] MEDS: RESP: ALBUTEROL 2.5 MG/IPRATROPIUM 0.5 MG NEB (SCH) NEB ×2 (03:25→08:54)
[2017-02-13] MEDS: LABETALOL HCL 100 MG/20 ML VIAL IV PUSH PRN (03:30)
[2017-02-13] MEDS: PIPERACIL-TAZO 4.5 GM PREMIX 100 ML IV SCH ×4 (04:42→21:02)
[2017-02-13] MEDS: fentaNYL DRIP 250 ML IV PRN ×2 (05:41→21:03)
[2017-02-13] MEDS: INSULIN ASPART SUPPLEMENTAL SCALE SQ SCH ×4 (06:00→23:59)
[2017-02-13] MEDS: INSULIN DETEMIR 100 UNITS/ML VIAL SQ SCH ×2 (08:03→21:04)
[2017-02-13 08:08] LABS: BICARBONATE 29.1 MEQ/L (21.0-32.0); MAGNESIUM 2.2 MG/DL (1.5-2.5); POTASSIUM 3.2 MEQ/L (3.5-5.1)
[2017-02-13] MEDS: FUROSEMIDE 40 MG/4 ML VIAL IV PUSH SCH ×2 (08:51→21:02)
[2017-02-13] MEDS: LISINOPRIL 5 MG TAB PO SCH ×2 (09:00→21:02)
[2017-02-13] MEDS: METOPROLOL TARTRATE 25 MG TAB PO SCH ×2 (09:00→21:02)
[2017-02-13] MEDS: POTASSIUM CHLOR 40 MEQ PREMIX 100 ML IV PRN (09:47)
[2017-02-13] MEDS: FLUCONAZOLE 400 MG PREMIX BAG 200 ML IV SCH (10:18)
--- NOTE | 2017-02-13 10:39 | HHI.PR ---
Subjective Subjective Notes Resting in bed On NC at bedside Objective Vitals/I&O Vital Signs Date Time Temp Pulse Resp B/P (MAP) Pulse Ox O2 Delivery O2 Flow Rate FiO2 02/13/17 10:00 98 02/13/17 08:56 96 Venturi Mask 5.00 31 02/13/17 08:52 143/64 02/13/17 08:00 99.3 19 Labs Laboratory Tests Test 02/12/17 17:15 02/13/17 06:10 Potassium Level 3.5 3.2 Phosphorus Level 1.6 1.5 Blood Urea Nitrogen 8 Creatinine 0.41 Random Glucose 97 Calcium Level 7.6 Magnesium Level 2.2 Sodium Level 147 Chloride Level 113 Carbon Dioxide Level 29.1 Anion Gap 5 Estimat Glomerular Filtration Rate 210 Date/Time Source Procedure Growth Status 02/07/17 05:00 Blood Peripheral Aerobic Blood Culture - Final NO GROWTH IN 5 DAYS Complete 02/07/17 05:00 Blood Peripheral Anaerobic Blood Culture - Final NO GROWTH IN 5 DAYS Complete 02/06/17 09:30 Sputum Endotracheal Gram Stain - Final Complete 02/06/17 09:30 Sputum Endotracheal Sputum Culture - Final Complete 01/27/17 08:00 Urine Catheterized Urine Urine Culture - Final NO GROWTH IN 48 HOURS. Complete 02/04/17 17:00 Wound Abdomen Gram Stain - Final Complete 02/04/17 17:00 Wound Culture - Final Saida Albicans Complete Radiology Last Impressions Chest X-Ray 01/27/17 0600 Signed Impressions: Service Date/Time: Friday, January 27, 2017 04:22 - CONCLUSION: 1. Support apparatus in satisfactory position. Mild basilar airspace disease. No pneumothorax. Trace pleural fluid remains on the left. Jordan Lozano MD Lower Extremity Ultrasound 01/27/17 0000 Signed Impressions: Service Date/Time: Friday, January 27, 2017 12:49 - CONCLUSION: No DVT in either lower extremity. Elijah Funes MD Chest Ultrasound 01/24/17 0000 Signed Impressions: Service Date/Time: Tuesday, January 24, 2017 11:13 - CONCLUSION: 1. Large left pleural effusion. Jayson Das MD Chest CT 8/15/17 0000 Signed Impressions: Service Date/Time: Monday, January 23, 2017 18:54 - CONCLUSION: 1. Moderate-sized bilateral pleural effusions. Right pleural effusion has several small areas of loculation as above. 2. Bilateral lower lobe consolidation. 3. Somewhat mass like fullness in the right infrahilar region. A contrast- enhanced CT of the chest is recommended, preferably after resolution of pleural effusions and bibasilar consolidation. Gonzales Pierre MD Upper GI/Barium Swallow X-Ray 01/22/17 0000 Signed Impressions: Service Date/Time: Sunday, January 22, 2017 12:29 - CONCLUSION: 1. Findings suspicious for a small leak at the gastroesophageal junction with contrast pooling into an air fluid collection adjacent to the GE junction and distal esophagus. There was an end to side anastomosis performed so it is possible, but felt unlikely, that the collection represents a portion of the proximal stomach. 2. Findings were discussed with Dr. Ritchie. Gonzales Ramsay MD Abdomen CT 01/22/17 0000 Signed Impressions: Service Date/Time: Sunday, January 22, 2017 17:12 - CONCLUSION: 1. There is an abnormal air and fluid collection located to the right of the GE junction adjacent to the proximal stomach. It extends into the posterior mediastinum. The current appearance and findings on fluoroscopy examination earlier today are indicative of a leak at the anastomosis. The current surgical drain is not directly adjacent to the collection and based on the location I do not think that we could place a drain in an appropriate location percutaneously. 2. Small bilateral pleural effusions with associated atelectasis and/or consolidation in both lower lobes. Gonzales Ramsay MD Cardiovascular: Regular Lungs: Clear Abdomen: Other (midline incision with steri strips in place; ANDREW LEFT with thick pus drainage---minimal; ANDREW RIGHT with no drainge; J tube capped ) Extremities: Other (see below ) Narrative Exam Moderate scrotal edema Moderate generalized edema A/P Problem List: (1) Primary adenocarcinoma of distal third of esophagus ICD Codes: C15.5 - Malignant neoplasm of lower third of esophagus Status: Acute (2) Atrial fibrillation with RVR ICD Codes: I48.91 - Unspecified atrial fibrillation Status: Chronic (3) Acute hypoxemic respiratory failure ICD Codes: J96.01 - Acute respiratory failure with hypoxia Status: Resolved (4) Gastric adenocarcinoma ICD Codes: C16.9 - Malignant neoplasm of stomach, unspecified Status: Acute Assessment and Plan 66 year old male s/p laparoscopic gastrectomy and cholecystectomy with Botox injection; s/p bilateral thoracostomy tube placement; open subtotal gastrectomy ; jejunostomy tube placement -GI planning for esophagus stent placement today -NGT to [facility] -IVF -TF off for procedure today -Continue ANDREW management Attending Statement The exam, history, and the medical decision-making described in the above note were completed with the assistance of the mid-level provider. I reviewed and agree with the findings presented. I attest that I had a [id number] encounter with the patient on the same day, and personally performed and documented my assessment and findings in the medical record. Abdominal exam: stable postop, soft, non-distended, ANDREW minimal output Es Solis Feb 13, 2017 10:39 Josh Ritchie MD Mar 13, 2017 23:12
--- NOTE | 2017-02-13 12:44 | HHI.IDPN ---
Note Infectious Disease Note Going to OR for stent placement. DC Vanco IV ? drug fever Continue Zosyn IV Continue Diflucan IV. Vital Signs Date Time Temp Pulse Resp B/P (MAP) Pulse Ox O2 Delivery O2 Flow Rate FiO2 02/13/17 12:00 99.9 101 16 154/72 (99) 94 02/13/17 10:00 98 02/13/17 08:56 96 Venturi Mask 5.00 31 02/13/17 08:52 97 143/64 02/13/17 08:00 99.3 98 19 135/73 (93) 93 02/13/17 08:00 98 02/13/17 07:00 92 Venturi Mask 35 02/13/17 06:00 92 02/13/17 05:41 92 162/66 02/13/17 04:00 86 02/13/17 04:00 99.9 86 15 137/63 (87) 97 02/13/17 03:06 99 175/77 02/13/17 02:00 92 02/13/17 00:00 100 02/13/17 00:00 99.7 100 22 143/68 (93) 100 02/12/17 23:35 95 154/71 02/12/17 22:00 92 02/12/17 20:40 104 145/65 02/12/17 20:36 94 02/12/17 20:00 92 02/12/17 20:00 99.3 92 19 159/56 (90) 92 02/12/17 19:00 94 Venturi Mask 6.00 02/12/17 18:00 100 02/12/17 17:40 99 161/70 02/12/17 16:00 96 02/12/17 16:00 99.5 97 14 137/60 (85) 94 02/12/17 15:13 96 142/65 02/12/17 14:00 91 Laboratory Tests Test 02/12/17 17:15 02/13/17 06:10 Potassium Level 3.5 MEQ/L 3.2 MEQ/L Phosphorus Level 1.6 MG/DL 1.5 MG/DL Blood Urea Nitrogen 8 MG/DL Creatinine 0.41 MG/DL Random Glucose 97 MG/DL Calcium Level 7.6 MG/DL Magnesium Level 2.2 MG/DL Sodium Level 147 MEQ/L Chloride Level 113 MEQ/L Carbon Dioxide Level 29.1 MEQ/L Anion Gap 5 MEQ/L Estimat Glomerular Filtration Rate 210 ML/MIN Kaia Pate MD Feb 13, 2017 12:44
--- NOTE | 2017-02-13 13:35 | GIPROC ---
[facility] [address] [facility]. [facility], [address] EGD PROCEDURE REPORT EXAM DATE: 02/13/2017 PATIENT NAME: Jayson Byrd MR #: [id number] BIRTHDATE: 1950 ATTENDING: Mira Ríos MD ORDER #: [id number] HEALTH SERVICES DIRECTOR: Lois Hogan and Juan Carlos Walters STATUS: inpatient INDICATIONS: The patient is a 66 yr old male here for an EGD due to Patient has history of gastric cancer at the EG junction status post resection, patient had with look like a leak with possible fistula formation at the surgical anastomosis PROCEDURE PERFORMED: upper endoscopy with metallic stent placement in the esophagus MEDICATIONS: None and Per Anesthesia. TOPICAL ANESTHETIC: none CONSENT: The patient understands the risks and benefits of the procedure and understands that these risks include, but are not limited to: sedation, allergic reaction, infection, perforation and/or bleeding. Alternative means of evaluation and treatment include, among others: physical exam, x-rays, and/or surgical intervention. The patient elects to proceed with this endoscopic procedure. medical equipment was checked for proper function. Hand hygiene and appropriate measures for infection prevention was taken. After the risks, benefits and alternatives of the procedure were thoroughly explained, Informed consent was verified, confirmed and timeout was successfully executed by the treatment team. The patient was anesthetized with topical anesthesia and the Pentax [id number] endoscope was introduced through the mouth and advanced to the second portion of the duodenum. Retroflexion was not performed The gastroscope was then slowly withdrawn and removed. There was an area and the anastomosis was what looked like a fistula with 2 clips that's not closing the fistula the scope was advanced around this area into the stomach the area was sized for stenting, a wire was passed through the scope and then a stent was placed with the scope at the side-viewing size 105 millimeter by 22 mm under fluoroscopy with the anastomosis centralized in the middle of the stent scope with withdrawn back after that without any complication. ADVERSE EVENTS: There were no complications. IMPRESSIONS: 1. There was an area and the anastomosis was what looked like a fistula with 2 clips that's not closing the fistula the scope was advanced around this area into the stomach the area was sized for stenting, a wire was passed through the scope and then a stent was placed with the scope at the side-viewing size 105 millimeter by 22 mm under fluoroscopy with the anastomosis centralized in the middle of the stent scope with withdrawn back after that without any complication 2. Retroflexion was not performed RECOMMENDATIONS: Nothing by mouth for 6 hours then may use PEG tube KUB in the morning if there is any abdominal distention or chest discomfort PATIENT CONDITION: stable DISPOSITION: Inpatient REPEAT EXAM: Return 6 weeks EGD For stent removal Mira Ríos MD eSigned: Mira Ríos MD 02/13/2017 1:35 PM cc: PATIENT NAME: Jayson Byrd MR#: [id number]
--- NOTE | 2017-02-13 13:39 | HHI.GIFU ---
Subjective Remarks Patient is in bed comfortable, he is going for EGD with stent placement today no fever or chills Objective Vitals I&O Vital Signs Date Time Temp Pulse Resp B/P (MAP) Pulse Ox O2 Delivery O2 Flow Rate FiO2 02/13/17 12:00 101 02/13/17 12:00 99.9 101 16 154/72 (99) 94 02/13/17 10:00 98 02/13/17 08:56 96 Venturi Mask 5.00 31 02/13/17 08:52 97 143/64 02/13/17 08:00 99.3 98 19 135/73 (93) 93 02/13/17 08:00 98 02/13/17 07:00 92 Venturi Mask 35 02/13/17 06:00 92 02/13/17 05:41 92 162/66 02/13/17 04:00 86 02/13/17 04:00 99.9 86 15 137/63 (87) 97 02/13/17 03:06 99 175/77 02/13/17 02:00 92 02/13/17 00:00 100 02/13/17 00:00 99.7 100 22 143/68 (93) 100 02/12/17 23:35 95 154/71 02/12/17 22:00 92 02/12/17 20:40 104 145/65 02/12/17 20:36 94 02/12/17 20:00 92 02/12/17 20:00 99.3 92 19 159/56 (90) 92 02/12/17 19:00 94 Venturi Mask 6.00 02/12/17 18:00 100 02/12/17 17:40 99 161/70 02/12/17 16:00 96 02/12/17 16:00 99.5 97 14 137/60 (85) 94 02/12/17 15:13 96 142/65 02/12/17 14:00 91 I/O 02/12/17 02/12/17 02/12/17 02/13/17 02/13/17 02/13/17 07:00 15:00 23:00 07:00 15:00 23:00 Intake Total 1917 ml 854 ml 747 ml 1654 ml 340 ml Output Total 3500 ml 3708 ml 2301 ml Balance -1583 ml 854 ml -2961 ml -647 ml 340 ml IV Total 1917 ml 854 ml 98 ml 1449 ml 340 ml Tube Feeding 649 ml 205 ml Output Urine Total 3200 ml 3600 ml 2275 ml Stool Total 300 ml 100 ml 20 ml Gastric Drainage Total 0 ml 0 ml Drainage Total 8 ml 6 ml Laboratory Laboratory Tests Test 02/12/17 17:15 02/13/17 06:10 Potassium Level 3.5 3.2 Phosphorus Level 1.6 1.5 Blood Urea Nitrogen 8 Creatinine 0.41 Random Glucose 97 Calcium Level 7.6 Magnesium Level 2.2 Sodium Level 147 Chloride Level 113 Carbon Dioxide Level 29.1 Anion Gap 5 Estimat Glomerular Filtration Rate 210 Date/Time Source Procedure Growth Status 02/07/17 05:00 Blood Peripheral Aerobic Blood Culture - Final NO GROWTH IN 5 DAYS Complete 02/07/17 05:00 Blood Peripheral Anaerobic Blood Culture - Final NO GROWTH IN 5 DAYS Complete 02/06/17 09:30 Sputum Endotracheal Gram Stain - Final Complete 02/06/17 09:30 Sputum Endotracheal Sputum Culture - Final Complete 01/27/17 08:00 Urine Catheterized Urine Urine Culture - Final NO GROWTH IN 48 HOURS. Complete 02/04/17 17:00 Wound Abdomen Gram Stain - Final Complete 02/04/17 17:00 Wound Culture - Final Saida Albicans Complete Physical Exam HEENT: Normocephalic; atraumatic CHEST: CTA. Mild tachypnea CARDIAC: RRR with no murmur gallop or rubs. ABDOMEN: Soft, obese, mildly distended, mild diffuse . Midline incision with steri strips in place. ANDREW at right/left. EXTREMITIES: Trace edema at BLE SKIN: Normal; no rash; no jaundice. 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 S/P laparoscopic proximal partial gastrectomy with esophageal gastric anastomosis, laparoscopic cholecystectomy, injection of the pylorus with Botox with Dr. Pisano on 01/17/17. Gastrografin swallow (01/22/17)---> findings suspicious for a small leak at the gastroesophageal junction with contrast pooling into an air fluid collection adjacent to the GE junction and distal esophagus. There was an end to side anastomosis performed so it is possible, but felt unlikely, that the collection represents a portion of the proximal stomach. His pathology came back with positive margins and and therefore he underwent open subtotal gastrectomy with gastric and duodenal formation and gastroesophageal an anastomosis, jejunostomy feeding tube placement, bilateral thoracostomy tube placement (01/24/17). He was then evaluated with CT thorax (02/04/17), which did not appreciate any signs of leak, but this was done without oral contrast. GI has been consulted for evaluation for possible esophageal stent placement. D/W Dr. Hong, Dr. Pisano, and Dr Huddleston in radiology. Plan will be for CT scan thorax with oral contrast (feels this will reflux back into the esophagus to show if there is a leak. However , if it does not, they will plan on contrast under fluoro with Dr. Pisano adjusting the NGT. If leak is present, Dr. Hong will then review case for possible esophageal stent placement. - Leukocytosis. ID following. Vanco/Zosyn. - Respiratory failure/Pleural effusions. 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 EGD/colonoscopy (11/30/16)---> Nodule 1 cm distal esophagus, indurated biopsies multiple. Gastritis in antrum/body, duodenitis second portion, bx, retroflex views revealed a small hiatal hernia. Polyp diminutive cecum- cold biopsy with complete removal polyp sessile ascending colon 8 mmc old snare polypectomy with complete removal polyp in the chelated 2 cm hot snare polypectomy random biopsies from the ascending and descending to rule out microscopic colitis, diverticulosis sigmoid, descending. Pathology revealed invasive adenocarcinoma with signet reading features tumor shows strong reactivity first CDX-2 and is negative for CD68 immunostains, cecum polyp tubular adenoma, negative for high grade dysplasia or malignancy, ascending colon polyp tubular adenoma, ascending, descending colon with cold colonic mucosa showing no pathologic abnormalities. Descending colon polyp tubular adenoma. He was then evaluated with EUS (12/07)---> hypoechoic 0.48 x 0.91 lesion of the cardia at the edge of the GE junction, T1a Nx no lymphadenopathy. PET Scan (12/11/16)----> unremarkable study without evidence for active malignancy or metastatic disease. He was then evaluated by oncology (Dr. Luna) and was then referred to surgical oncology. S/P surgery as above. 02-10-17- S/P EGD on (02/09/17)---> Esophagus this was unremarkable up until the distal end where noted inflammation friability with a large fistulous opening with obvious surgical changes and bulging at the anastomosis the bulging was biopsied the fistulous opening we tried to apply some clips but there was too much friability and the clips wouldn't hold The small bowel attached to the esophagus appeared to be unremarkable 02/12/17--Patient doing well today. HH stable 9.8/29.3. WBC normal. Plan for stent placement tomorrow. 02/13/2017 patient is doing okay patient, EGD showed possible fistula in the GE junction, stent was placed 105 mm X 22 mm without any difficulty under fluoroscopy with verification that the anastomosis and the mid area of the stent PLAN: - EGD with stent placement done - NPO for 6 hours and then may use tube feeding - TF per dietary recommendation - Continue NGT if there is abdominal distention - IVF - Supportive care - Further recommendations to follow based on how this patient doing in the next few days Patient will need stent removal with EGD in about 6 weeks Mira Ríos MD Feb 13, 2017 13:39
[2017-02-13] MEDS ORDERED: DO NOT ADM ANY ANTICOAGULANT DRUGS PRN (13:42)
[2017-02-13] MEDS ORDERED: PROPOFOL 200 MG/20 ML AMP IV PUSH ONE (14:34)
--- NOTE | 2017-02-13 14:55 | RADRPT ---
EXAM DATE/TIME: 02/13/2017 13:31 [facility] COMPARISON: No previous studies available for comparison. INDICATIONS : Stricture. FLUORO TIME: 1.52 minutes IMAGE COUNT: 1 CONTRAST: Instilled by Ordering Physician MEDICAL HISTORY : Hypertension. Carcinoma, esophageal. stomach cancer SURGICAL HISTORY : ENCOUNTER: Initial ACUITY: 1 day PAIN SCORE: Non-responsive. LOCATION: esophagus FINDINGS: The distal portion of esophageal stent is present at the level of the gastroesophageal junction. CONCLUSION: 1. Postsurgical changes as above. Bradley Jacobsen MD on February 13, 2017 at 14:52 Board Certified Radiologist. This report was verified electronically.
[2017-02-13] MEDS: PANTOPRAZOLE SODIUM 40 MG VIAL IV SCH (16:41)
[2017-02-13] MEDS: NYSTATIN SUSP 500,000 U/5 ML CUP SWISH-SWAL SCH ×2 (16:41→22:08)
[2017-02-13] MEDS: ENOXAPARIN SODIUM 30 MG/0.3 ML SYRINGE SQ SCH (16:41)
[2017-02-13] MEDS: niCARdipine INJ 50 MG in SODIUM CHLOR 0.9% 250 ML INJ 250 ML IV PRN (16:42)
--- NOTE | 2017-02-13 16:51 | HHI.CCPN ---
Subjective Remarks/Hospital Course 66 y/o man has developed respiratory failure following a laparoscopic partial gastrectomy performed 01/17. He was brought to the [facility] where I met him on his arrival. Intubated for hypoxemic failure and lines placed. After 2 liters NS patient making > 40 ml/hr urine. Arrived in atrial fibrillation with rate 160s, converted after fluid, analgesia, and lopressor 5 mg X 1.Loaded with antibiotics. Family is aware. 01/25: Completion gastric resection and resuscitation. Urine output marginal but perfusion good. Tapering vasopressors. 01/26: Off all vasopressors. Tmax 100.4. Currently 100.2. Tolerating TPN. White cell count elevated 27,000. Arousable and follows commands on the ventilator. Subjective 01/27: Tmax 101.5. Pancultured including blood 2 from peripheral access and sputum. Added vancomycin. Arousable doesn't follow commands. Cultures sent from around surgical site. 01/28: Remains sedated, orally intubated on mechanical ventilation. 01/29: Remains sedated, orally intubated on mechanical ventilation. Remains febrile. 01/30: Remains sedated, orally intubated on mechanical ventilation. 01/31: Remains sedated, orally intubated on mechanical ventilation. Off TPN since 01/30. J-tube feeds being advanced to goal. Still febrile. Lipscomb cultures ordered. 02/01: Remains sedated, orally intubated on mechanical ventilation. Failing C Pap trials. Still having fevers. WBCs down to 11,000. 02/02: Remains sedated, orally intubated on mechanical ventilation. Tolerating J -tube feeds. Still having temperature spikes. 02/03: Sedated, arousable, orally intubated on mechanical ventilation. Tolerating J-tube feeds. Continues to have fever. Failing C Pap trials. 02/04: Sedated, arousable, orally intubated on mechanical ventilation. Tolerating J-tube feeds. Continues to have intermittent fevers. Failing C Pap trials. A.m. labs pending 02/05: Extubated on 02/04, requiring 50% Ventimask. Underwent CT chest abdomen pelvis which revealed presence of air-fluid level extraluminally including oral contrast extending into posterior mediastinum. 02/06: Patient was placed on BiPAP last night for worsening respiratory distress. He was intubated this morning as his respiratory effort was increasing as well as in view of concern for his anastomotic site with leak. I had a detailed discussion with patient's prior to proceeding with intubation and patient was placed on mechanical ventilation subsequently. I also placed a new left subclavian central line following intubation. Patient was subsequent only sedated with propofol. He was hypertensive prior to intubation with no episodes of hypotension noted. He was lucid and following commands prior to intubation. Right sided isidro drain continues to have cloudy greenish yellow purulent drainage. 02/07: Comfortable and well oxygenated on PRVC vent mode. Care plan has been explained to spouse. 02/08: T max 100.0, normotensive. Alert, tolerating J-tube feeds. Plan is for conservative management of leak with percutaneous drainage if collection develops. Palliative care service has contacted . 02/09: Patient is alert awake tolerating CPAP. Hypotensive receiving labetalol and hydralazine when necessary. Bilateral drains with 20 mL output in [address] chest showed leak involving GE junction- probable stent by GI today. 02/10: Acceptable parameters on CPAP/SBT. Extubated without event. A bit excess fluid, redouble diuretics today. Replace K. 02/11: Extubated about 20 hours ago, breathing comfortably. Lungs clear, strong cough effort. Still edematous, continue active diuresis. 02/12: Continued excellent diuresis should help reduce effusions. Breathing remains acceptably comfortable. Tolerating extubation well. 02/13: Marked diuresis with BID lasix, replacing lytes daily. We need to get him pretty dry for respiratory help - prone to effusions and venous congestion while on vent. Objective Vital Signs Date Time Temp Pulse Resp B/P (MAP) Pulse Ox O2 Delivery O2 Flow Rate FiO2 02/13/17 16:42 94 140/65 02/13/17 16:00 99.3 16 94 02/13/17 08:56 Venturi Mask 5.00 31 Intake and Output 02/13/17 02/13/17 02/14/17 08:00 16:00 00:00 Intake Total 1654 ml 870 ml Output Total 2301 ml Balance -647 ml 870 ml Result Diagram: 02/12/17 0420 02/13/17 0610 Imaging Last 48 hours Impressions Chest X-Ray 02/01/17 0600 Signed Impressions: Service Date/Time: January 05:12 - CONCLUSION: 1. Support apparatus in good position. Bilateral chest tubes without pneumothorax. Basal airspace disease. Jordan Lozano MD Chest X-Ray 02/01/17 0000 Signed Impressions: Service Date/Time: January 21:16 - CONCLUSION: 1. No pneumothorax or significant change following right chest tube removal. There is stable consolidation versus atelectasis in the right lower lung zone. 2. Left chest tube is present and no pneumothorax is visualized. There is stable left basilar opacity. Gonzales Ramsay MD Last Impressions Chest X-Ray 01/27/17 0600 Signed Impressions: Service Date/Time: Friday, January 27, 2017 04:22 - CONCLUSION: 1. Support apparatus in satisfactory position. Mild basilar airspace disease. No pneumothorax. Trace pleural fluid remains on the left. Jordan Lozano MD Chest Ultrasound 01/24/17 0000 Signed Impressions: Service Date/Time: Tuesday, January 24, 2017 11:13 - CONCLUSION: 1. Large left pleural effusion. Jayson Das MD Chest CT 01/23/17 0000 Signed Impressions: Service Date/Time: Monday, January 23, 2017 18:54 - CONCLUSION: 1. Moderate-sized bilateral pleural effusions. Right pleural effusion has several small areas of loculation as above. 2. Bilateral lower lobe consolidation. 3. Somewhat mass like fullness in the right infrahilar region. A contrast- enhanced CT of the chest is recommended, preferably after resolution of pleural effusions and bibasilar consolidation. Gonzales Pierre MD Upper GI/Barium Swallow X-Ray 01/22/17 0000 Signed Impressions: Service Date/Time: Sunday, January 22, 2017 12:29 - CONCLUSION: 1. Findings suspicious for a small leak at the gastroesophageal junction with contrast pooling into an air fluid collection adjacent to the GE junction and distal esophagus. There was an end to side anastomosis performed so it is possible, but felt unlikely, that the collection represents a portion of the proximal stomach. 2. Findings were discussed with Dr. Ritchie. Gonzales Ramsay MD Abdomen CT 01/22/17 0000 Signed Impressions: Service Date/Time: Sunday, January 22, 2017 17:12 - CONCLUSION: 1. There is an abnormal air and fluid collection located to the right of the GE junction adjacent to the proximal stomach. It extends into the posterior mediastinum. The current appearance and findings on fluoroscopy examination earlier today are indicative of a leak at the anastomosis. The current surgical drain is not directly adjacent to the collection and based on the location I do not think that we could place a drain in an appropriate location percutaneously. 2. Small bilateral pleural effusions with associated atelectasis and/or consolidation in both lower lobes. Gonzales Ramsay MD Objective Remarks Gen: 66-year-old male, alert, exhausted Head: NL. Atraumatic. Neck: Airway widely patent. Lungs: Improved breath sounds both bases, otherwise clear. Mild tachypnea persists. Heart: NL S1S2, no murmur, rub. No JVD. Hypertensive. Abdomen: Mildly distended, soft, nontender. Isidro drain on left/right. J-tube on left, minimal output. Extremities: Warm, dry. Well perfused. Trace edema both legs/feet, resolving. Neuro: Follows commands. Moves 4 limbs spontaneously. YESENIA. Conversant, oriented to place, person. Line: Central Venous Catheter A/P Problem List: (1) Acute hypoxemic respiratory failure ICD Code: J96.01 - Acute respiratory failure with hypoxia Status: Acute (2) Primary adenocarcinoma of distal third of esophagus ICD Code: C15.5 - Malignant neoplasm of lower third of esophagus Status: Acute (3) S/P gastrectomy ICD Code: Z90.3 - Acquired absence of stomach [part of] Assessment and Plan Neuro/Psych: Postop pain control Chronic Benzodiazepine use Chronic muscle relaxant use Reintubated on 02/06 and placed on propofol for sedation. Hold propofol today for weaning trial. Continue on fentanyl for pain control Patient is on alprazolam 0.25 mg twice a day and diazepam 5 mill grams twice a day when necessary for anxiety at home. Patient is on Flexeril as needed muscle relaxant at home. CV: A. fib with RVR currently normal sinus rhythm History of hypertension History of dyslipidemia Holding home medications of amlodipine 5 mg twice a day and losartan 50 mg twice a day. Use hydralazine IV and labetalol IV when necessary for SBP more than 170 TPN stopped 01/30. J-tube feeds advanced to goal. Lasix 40 mg IV bid daily for 2-3 more days. Resp: Acute hypercapnic respiratory failure Bilateral pleural effusions Extubated on 02/04, required reintubation on 02/06 for worsening respiratory distress probably secondary to anastomotic leak. Continue mechanical ventilation, vent bundle. Tolerating spontaneous breathing trials. Leave intubated for EGD today to evaluate for stent placement Scheduled due nebs every 6 hours with albuterol nebulizers every 2 hours. Right pigtail catheter removed on 02/01, left pigtail catheter removed by surgery 02/02 Extubated 02/11. GI: 01/19 -cholecystectomy, proximal gastrectomy with GE junction anastomosis and Botox injection by Dr. Ritchie 01/24 - bilateral chest tubes/open subtotal gastrectomy and jejunostomy placement Gastroesophageal reflux disease Currently on pantoprazole 40 mg IV daily Isidro tubes left/right, 20 ml output in 24 hours. J-tube feeds at 50 cc an hour as tolerated. Discussed with Dr. Howard covering for Dr. Ritchie regarding CT findings from 02/04 showing extraluminal air in fluid with contrast extending into posterior mediastinum and greenish yellow cloudy purulent drainage from Isidro drain raising concern for anastomotic leak. Per Dr. Ritchie to decide further surgical options -> conservative Rx for now. Clinically improving CT chest 02/08/17 showed leak at the GE junction. EGD today to evaluate for stent placement 02/[address] esophageal stent when available. : Soto catheter for accurate I's and O's in a critically ill patient Endo: Sliding-scale insulin with NovoLog every 4 hours/medium. Levemir 10 units twice a day Renal: Strict intake output, monitor and replete electrolytes, follow BUN/creatinine. Heme: Leukocytosis Normocytic anemia Monitor CBC daily. Follow trends ID: Currently on Zosyn, added vancomycin 01/27. Added fluconazole 400mg daily on for mae from ANDREW drain. Stopped levaquin 02/01 All blood cultures negative so far. Wound culture with mae. Lipscomb cultures sent on 01/31, 06/12 blood culture with Staph Warneri ? contaminant. ID Dr. Pate following Remains on antibiotics per ID. FEN: Replace electrolytes as clinically indicated Nutrition - Prealbumin 9, J tube feeds uninterrupted. MSK: Range of motion Access - Right subclavian CVL 01/24, right upper extremity PICC placed 01/23 ( discontinue 02/01). Discontinued right radial arterial line 01/27 Prophylaxis - GI - pantoprazole - DVT - SCD/pharmacological prophylaxis. Overall impression: Nutrition and infection control will be the mainstays of treatment for now. Esophageal stent perhaps this week. Generalized edema is resolving. Tolerating extubation well, no distress. Pk Romero MD Feb 13, 2017 16:51
[2017-02-13] MEDS: SODIUM CHLORIDE 0.9% FLUSH 10 ML FLUSH IV FLUSH SCH ×2 (21:03→21:05)
[2017-02-14] VITALS (13 sets, daily range): BP systolic 124–171; BP diastolic 64–72; PULSE 80–99; RESP 12–22; TEMP 98.2–99.7; O2SAT 90–94
[2017-02-14] MEDS: PIPERACIL-TAZO 4.5 GM PREMIX 100 ML IV SCH ×4 (03:29→20:50)
[2017-02-14] MEDS: NYSTATIN SUSP 500,000 U/5 ML CUP SWISH-SWAL SCH ×3 (04:17→15:51)
[2017-02-14] MEDS: niCARdipine INJ 50 MG in SODIUM CHLOR 0.9% 250 ML INJ 250 ML IV PRN ×3 (04:18→13:33)
[2017-02-14] MEDS: INSULIN ASPART SUPPLEMENTAL SCALE SQ SCH ×3 (05:51→18:00)
[2017-02-14] MEDS: LABETALOL HCL 100 MG/20 ML VIAL IV PUSH PRN (06:15)
[2017-02-14 06:31] LABS: ALT (GPT) 25 U/L (12-78); ANION GAP 5 MEQ/L (5-15); AST (GOT) 23 U/L (15-37); BICARBONATE 30.4 MEQ/L (21.0-32.0); BLOOD UREA NITROGEN 13 MG/DL (7-18); CHLORIDE 109 MEQ/L (98-107); GLOMERULAR FILTRATION RATE 141 ML/MIN (>89); MAGNESIUM 2.4 MG/DL (1.5-2.5); POTASSIUM 3.6 MEQ/L (3.5-5.1); SODIUM (NA) 144 MEQ/L (136-145)
[2017-02-14 06:33] LABS: ALKALINE PHOSPHATASE 131 U/L (45-117); TOTAL BILIRUBIN ADULT 0.3 MG/DL (0.2-1.0)
[2017-02-14] MEDS: SODIUM CHLORIDE 0.9% FLUSH 10 ML FLUSH IV FLUSH SCH ×2 (09:40→20:11)
--- NOTE | 2017-02-14 10:06 | HHI.GIFU ---
Subjective Remarks Resting in bed. Had EGD with stent placement yesterday. Mild nausea earlier, none now. No abdominal distention. Objective Vitals I&O Vital Signs Date Time Temp Pulse Resp B/P (MAP) Pulse Ox O2 Delivery O2 Flow Rate FiO2 02/14/17 08:00 98.3 80 12 171/72 (105) 93 02/14/17 07:00 93 Nasal Cannula 5.00 02/14/17 06:00 99 02/14/17 04:18 93 146/67 02/14/17 04:00 96 02/14/17 04:00 99.3 96 14 146/67 (93) 93 02/14/17 02:00 89 02/14/17 00:00 99.7 86 14 139/67 (91) 93 02/14/17 00:00 86 02/13/17 22:00 86 02/13/17 20:32 93 Nasal Cannula 5.00 02/13/17 20:00 99.3 96 18 119/58 (78) 92 02/13/17 20:00 96 02/13/17 19:00 93 Nasal Cannula 5.00 02/13/17 18:00 96 02/13/17 16:42 94 140/65 02/13/17 16:00 95 02/13/17 16:00 99.3 95 16 145/65 (91) 94 02/13/17 14:40 92 18 140/66 (90) 93 Simple Mask 8 02/13/17 14:30 97 18 143/67 (92) 95 Simple Mask 8 02/13/17 14:15 95 18 141/63 (89) 94 Simple Mask 8 02/13/17 14:00 95 18 142/65 (90) 95 Simple Mask 8 02/13/17 14:00 91 02/13/17 13:49 97.7 97 18 184/84 (117) 94 Simple Mask 8 02/13/17 12:00 101 02/13/17 12:00 99.9 101 16 154/72 (99) 94 I/O 02/13/17 02/13/17 02/13/17 02/14/17 02/14/17 02/14/17 07:00 15:00 23:00 07:00 15:00 23:00 Intake Total 1654 ml 870 ml 100 ml 1741 ml Output Total 2301 ml 3305 ml 2804 ml 150 ml Balance -647 ml 870 ml -3205 ml -1063 ml -150 ml Intake Oral 300 ml IV Total 1449 ml 570 ml 100 ml 769 ml Tube Feeding 205 ml 672 ml Other 300 ml Output Urine Total 2275 ml 3200 ml 2750 ml Stool Total 20 ml 100 ml 50 ml 150 ml Gastric Drainage Total 0 ml Drainage Total 6 ml 5 ml 4 ml # Bowel Movements 1 1 Laboratory Laboratory Tests Test 02/14/17 05:40 Blood Urea Nitrogen 13 Creatinine 0.58 Random Glucose 127 Total Protein 7.0 Albumin 2.0 Calcium Level 7.9 Phosphorus Level 2.4 Magnesium Level 2.4 Alkaline Phosphatase 131 Aspartate Amino Transf (AST/SGOT) 23 Alanine Aminotransferase (ALT/SGPT) 25 Total Bilirubin 0.3 Sodium Level 144 Potassium Level 3.6 Chloride Level 109 Carbon Dioxide Level 30.4 Anion Gap 5 Estimat Glomerular Filtration Rate 141 Date/Time Source Procedure Growth Status 02/07/17 05:00 Blood Peripheral Aerobic Blood Culture - Final NO GROWTH IN 5 DAYS Complete 02/07/17 05:00 Blood Peripheral Anaerobic Blood Culture - Final NO GROWTH IN 5 DAYS Complete 02/06/17 09:30 Sputum Endotracheal Gram Stain - Final Complete 02/06/17 09:30 Sputum Endotracheal Sputum Culture - Final Complete 01/27/17 08:00 Urine Catheterized Urine Urine Culture - Final NO GROWTH IN 48 HOURS. Complete 02/04/17 17:00 Wound Abdomen Gram Stain - Final Complete 02/04/17 17:00 Wound Culture - Final Saida Albicans Complete Imaging Last Impressions GI Procedure 02/13/17 0000 Signed Impressions: Service Date/Time: Monday, February 13, 2017 13:31 - CONCLUSION: 1. Postsurgical changes as above. Bradley Jacobsen MD Chest X-Ray 02/09/17 0000 Signed Impressions: Service Date/Time: Thursday, February 09, 2017 10:08 - CONCLUSION: Interval improvement with persistent consolidative changes left base. Rivas Das MD FACR Chest CT 02/08/17 0000 Signed Impressions: Service Date/Time: January 15:50 - CONCLUSION: 1. Leak involving the GE junction as detailed in the above discussion. 2. Slight decrease in size of the small bilateral pleural effusions. 3. Unchanged bibasilar infiltrates. Chalino Olmedo Jr., MD Abdomen/Pelvis CT 02/04/17 0000 Signed Impressions: Service Date/Time: Saturday, February 04, 2017 23:18 - CONCLUSION: 1. No abscess is visualized, as questioned. However, there continues to be a small amount of fluid and air that appears extraluminal and located adjacent to the proximal stomach and extending into the posterior mediastinum adjacent to the distal esophagus. The right subhepatic drain is located near a portion of the fluid collection. There is also trace free fluid in the pelvis. 2. Anasarca. 3. Please refer to chest CT report for description of the supradiaphragmatic findings. Gonzales Ramsay MD Lower Extremity Ultrasound 01/27/17 0000 Signed Impressions: Service Date/Time: Friday, January 27, 2017 12:49 - CONCLUSION: No DVT in either lower extremity. Elijah Funes MD Chest Ultrasound 01/24/17 0000 Signed Impressions: Service Date/Time: Tuesday, January 24, 2017 11:13 - CONCLUSION: 1. Large left pleural effusion. Jayson Das MD Upper GI/Barium Swallow X-Ray 01/22/17 0000 Signed Impressions: Service Date/Time: Sunday, January 22, 2017 12:29 - CONCLUSION: 1. Findings suspicious for a small leak at the gastroesophageal junction with contrast pooling into an air fluid collection adjacent to the GE junction and distal esophagus. There was an end to side anastomosis performed so it is possible, but felt unlikely, that the collection represents a portion of the proximal stomach. 2. Findings were discussed with Dr. Ritchie. Gonzales Ramsay MD Abdomen CT 01/22/17 0000 Signed Impressions: Service Date/Time: Sunday, January 22, 2017 17:12 - CONCLUSION: 1. There is an abnormal air and fluid collection located to the right of the GE junction adjacent to the proximal stomach. It extends into the posterior mediastinum. The current appearance and findings on fluoroscopy examination earlier today are indicative of a leak at the anastomosis. The current surgical drain is not directly adjacent to the collection and based on the location I do not think that we could place a drain in an appropriate location percutaneously. 2. Small bilateral pleural effusions with associated atelectasis and/or consolidation in both lower lobes. Gonzales Ramsay MD Physical Exam HEENT: Normocephalic; atraumatic CHEST: CTA. Diminished bases CARDIAC: RRR with no murmur gallop or rubs. ABDOMEN: Soft, obese, mildly distended, mild diffuse . Midline incision with steri strips in place. ANDREW drain. J tube. EXTREMITIES: Trace edema at BLE SKIN: Normal; no rash; no jaundice. FABRIC SOURCER: Alert Assessment and Plan Plan ASSESSMENT: - Possible esophageal leak, GI consulted for possible esophageal stent placement. S/P laparoscopic proximal partial gastrectomy with esophageal gastric anastomosis, laparoscopic cholecystectomy, injection of the pylorus with Botox with Dr. Pisano on 01/17/17. Gastrografin swallow (01/22/17)---> findings suspicious for a small leak at the gastroesophageal junction with contrast pooling into an air fluid collection adjacent to the GE junction and distal esophagus. There was an end to side anastomosis performed so it is possible, but felt unlikely, that the collection represents a portion of the proximal stomach. His pathology came back with positive margins and and therefore he underwent open subtotal gastrectomy with gastric and duodenal formation and gastroesophageal an anastomosis, jejunostomy feeding tube placement, bilateral thoracostomy tube placement (01/24/17). He was then evaluated with CT thorax (02/04/17), which did not appreciate any signs of leak, but this was done without oral contrast. GI has been consulted for evaluation for possible esophageal stent placement. CT thorax (02/08/17)----> Leak involving the GE junction as detailed in the above discussion, slight decrease in size of the small bilateral pleural effusions, unchanged bibasilar infiltrates. S/P EGD ()---> Esophagus this was unremarkable up until the distal end where noted inflammation friability with a large fistulous opening with obvious surgical changes and bulging at the anastomosis the bulging was biopsied the fistulous opening we tried to apply some clips but there was too much friability and the clips wouldn't hold. The small bowel attached to the esophagus appeared to be unremarkable. S/P EGD with stent placement (02/13/17)----> EGD showed possible fistula in the GE junction, stent was placed 105 mm x 22 mm without any difficulty under fluoroscopy with verification that anastomosis and the mid area of the stent. WBC 8.5. Zoysn, Diflucan - Leukocytosis. ID following. Zosyn, Diflucan - Respiratory failure/Pleural effusions. S/P extubation. 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 EGD/colonoscopy (11/30/16)---> Nodule 1 cm distal esophagus, indurated biopsies multiple. Gastritis in antrum/body, duodenitis second portion, bx, retroflex views revealed a small hiatal hernia. Polyp diminutive cecum- cold biopsy with complete removal polyp sessile ascending colon 8 mmc old snare polypectomy with complete removal polyp in the chelated 2 cm hot snare polypectomy random biopsies from the ascending and descending to rule out microscopic colitis, diverticulosis sigmoid, descending. Pathology revealed invasive adenocarcinoma with signet reading features tumor shows strong reactivity first CDX-2 and is negative for CD68 immunostains, cecum polyp tubular adenoma, negative for high grade dysplasia or malignancy, ascending colon polyp tubular adenoma, ascending, descending colon with cold colonic mucosa showing no pathologic abnormalities. Descending colon polyp tubular adenoma. He was then evaluated with EUS (12/07)---> hypoechoic 0.48 x 0.91 lesion of the cardia at the edge of the GE junction, T1a Nx no lymphadenopathy. PET Scan (12/11/16)----> unremarkable study without evidence for active malignancy or metastatic disease. He was then evaluated by oncology (Dr. Luna) and was then referred to surgical oncology. S/P surgery as above. PLAN: - Okay for TF - Cont. Abx - Cont. IVF - Supportive care - Further recommendations to follow based on how this patient doing in the next few days - Patient will need stent removal with EGD in about 6 weeks - Pt seen and examined by Dr. Rod and myself and this note is written on his behalf Sylwia Gallagher Feb 14, 2017 10:06
--- NOTE | 2017-02-14 10:24 | HHI.CCPN ---
Subjective Remarks/Hospital Course 66 y/o man has developed respiratory failure following a laparoscopic partial gastrectomy performed 01/17. He was brought to the [facility] where I met him on his arrival. Intubated for hypoxemic failure and lines placed. After 2 liters NS patient making > 40 ml/hr urine. Arrived in atrial fibrillation with rate 160s, converted after fluid, analgesia, and lopressor 5 mg X 1.Loaded with antibiotics. Family is aware. 01/25: Completion gastric resection and resuscitation. Urine output marginal but perfusion good. Tapering vasopressors. 01/26: Off all vasopressors. Tmax 100.4. Currently 100.2. Tolerating TPN. White cell count elevated 27,000. Arousable and follows commands on the ventilator. Subjective 01/27: Tmax 101.5. Pancultured including blood 2 from peripheral access and sputum. Added vancomycin. Arousable doesn't follow commands. Cultures sent from around surgical site. 01/28: Remains sedated, orally intubated on mechanical ventilation. 01/29: Remains sedated, orally intubated on mechanical ventilation. Remains febrile. 01/30: Remains sedated, orally intubated on mechanical ventilation. 01/31: Remains sedated, orally intubated on mechanical ventilation. Off TPN since 01/30. J-tube feeds being advanced to goal. Still febrile. Lipscomb cultures ordered. 02/01: Remains sedated, orally intubated on mechanical ventilation. Failing C Pap trials. Still having fevers. WBCs down to 11,000. 02/02: Remains sedated, orally intubated on mechanical ventilation. Tolerating J -tube feeds. Still having temperature spikes. 02/03: Sedated, arousable, orally intubated on mechanical ventilation. Tolerating J-tube feeds. Continues to have fever. Failing C Pap trials. 02/04: Sedated, arousable, orally intubated on mechanical ventilation. Tolerating J-tube feeds. Continues to have intermittent fevers. Failing C Pap trials. A.m. labs pending 02/05: Extubated on 02/04, requiring 50% Ventimask. Underwent CT chest abdomen pelvis which revealed presence of air-fluid level extraluminally including oral contrast extending into posterior mediastinum. 02/06: Patient was placed on BiPAP last night for worsening respiratory distress. He was intubated this morning as his respiratory effort was increasing as well as in view of concern for his anastomotic site with leak. I had a detailed discussion with patient's prior to proceeding with intubation and patient was placed on mechanical ventilation subsequently. I also placed a new left subclavian central line following intubation. Patient was subsequent only sedated with propofol. He was hypertensive prior to intubation with no episodes of hypotension noted. He was lucid and following commands prior to intubation. Right sided isidro drain continues to have cloudy greenish yellow purulent drainage. 02/07: Comfortable and well oxygenated on PRVC vent mode. Care plan has been explained to spouse. 02/08: T max 100.0, normotensive. Alert, tolerating J-tube feeds. Plan is for conservative management of leak with percutaneous drainage if collection develops. Palliative care service has contacted . 02/09: Patient is alert awake tolerating CPAP. Hypotensive receiving labetalol and hydralazine when necessary. Bilateral drains with 20 mL output in [address] chest showed leak involving GE junction- probable stent by GI today. 02/10: Acceptable parameters on CPAP/SBT. Extubated without event. A bit excess fluid, redouble diuretics today. Replace K. 02/11: Extubated about 20 hours ago, breathing comfortably. Lungs clear, strong cough effort. Still edematous, continue active diuresis. 02/12: Continued excellent diuresis should help reduce effusions. Breathing remains acceptably comfortable. Tolerating extubation well. 02/13: Marked diuresis with BID lasix, replacing lytes daily. We need to get him pretty dry for respiratory help - prone to effusions and venous congestion while on vent. 02/14: Resting comfortably in bed. Underwent esophageal stenting for leak at GE junction on 02/13 I GI. Minimal shortness of breath. Feeling better compared to yesterday. concerned about swelling noted in right upper extremity. Objective Vital Signs Date Time Temp Pulse Resp B/P (MAP) Pulse Ox O2 Delivery O2 Flow Rate FiO2 02/14/17 08:00 98.3 80 12 171/72 (105) 93 02/14/17 07:00 Nasal Cannula 5.00 02/13/17 08:56 31 Intake and Output 02/14/17 02/14/17 02/14/17 07:59 15:59 23:59 Intake Total 1741 ml Output Total 2804 ml 150 ml Balance -1063 ml -150 ml Result Diagram: 02/12/17 0420 02/14/17 0540 Imaging Last 48 hours Impressions Chest X-Ray 02/01/17 0600 Signed Impressions: Service Date/Time: January 05:12 - CONCLUSION: 1. Support apparatus in good position. Bilateral chest tubes without pneumothorax. Basal airspace disease. Jordan Lozano MD Chest X-Ray 02/01/17 0000 Signed Impressions: Service Date/Time: January 21:16 - CONCLUSION: 1. No pneumothorax or significant change following right chest tube removal. There is stable consolidation versus atelectasis in the right lower lung zone. 2. Left chest tube is present and no pneumothorax is visualized. There is stable left basilar opacity. Gonzales Ramsay MD Last Impressions Chest X-Ray 01/27/17 0600 Signed Impressions: Service Date/Time: Friday, January 27, 2017 04:22 - CONCLUSION: 1. Support apparatus in satisfactory position. Mild basilar airspace disease. No pneumothorax. Trace pleural fluid remains on the left. Jordan Lozano MD Chest Ultrasound 01/24/17 0000 Signed Impressions: Service Date/Time: Tuesday, January 24, 2017 11:13 - CONCLUSION: 1. Large left pleural effusion. Jayson Das MD Chest CT 01/23/17 0000 Signed Impressions: Service Date/Time: Monday, January 23, 2017 18:54 - CONCLUSION: 1. Moderate-sized bilateral pleural effusions. Right pleural effusion has several small areas of loculation as above. 2. Bilateral lower lobe consolidation. 3. Somewhat mass like fullness in the right infrahilar region. A contrast- enhanced CT of the chest is recommended, preferably after resolution of pleural effusions and bibasilar consolidation. Gonzales Pierre MD Upper GI/Barium Swallow X-Ray 01/22/17 0000 Signed Impressions: Service Date/Time: Sunday, January 22, 2017 12:29 - CONCLUSION: 1. Findings suspicious for a small leak at the gastroesophageal junction with contrast pooling into an air fluid collection adjacent to the GE junction and distal esophagus. There was an end to side anastomosis performed so it is possible, but felt unlikely, that the collection represents a portion of the proximal stomach. 2. Findings were discussed with Dr. Ritchie. Gonzales Ramsay MD Abdomen CT 01/22/17 0000 Signed Impressions: Service Date/Time: Sunday, January 22, 2017 17:12 - CONCLUSION: 1. There is an abnormal air and fluid collection located to the right of the GE junction adjacent to the proximal stomach. It extends into the posterior mediastinum. The current appearance and findings on fluoroscopy examination earlier today are indicative of a leak at the anastomosis. The current surgical drain is not directly adjacent to the collection and based on the location I do not think that we could place a drain in an appropriate location percutaneously. 2. Small bilateral pleural effusions with associated atelectasis and/or consolidation in both lower lobes. Gonzales Ramsay MD Objective Remarks Gen: 66-year-old male, alert, laying in bed in no acute distress. Head: NL. Atraumatic. Neck: Airway widely patent. Lungs: Improved breath sounds both bases, otherwise clear. Heart: NL S1S2, no murmur, rub. No JVD. Hypertensive. Abdomen: Mildly distended, soft, nontender. Isidro drain on left/right. J-tube on left. Extremities: Warm, dry. Well perfused. Right upper extremity swelling noted. No edema on lower extremities. Neuro: Follows commands. Moves 4 limbs spontaneously. YESENIA. Conversant, oriented to place, person. Line: Central Venous Catheter A/P Problem List: (1) Acute hypoxemic respiratory failure ICD Code: J96.01 - Acute respiratory failure with hypoxia Status: Acute (2) Primary adenocarcinoma of distal third of esophagus ICD Code: C15.5 - Malignant neoplasm of lower third of esophagus Status: Acute (3) S/P gastrectomy ICD Code: Z90.3 - Acquired absence of stomach [part of] Assessment and Plan Neuro/Psych: Postop pain control Chronic Benzodiazepine use Chronic muscle relaxant use Reintubated on 02/06. Extubated on 02/11. Continue pain medications as needed. Patient is on alprazolam 0.25 mg twice a day and diazepam 5 mill grams twice a day when necessary for anxiety at home. Patient is on Flexeril as needed muscle relaxant at home. CV: A. fib with RVR currently normal sinus rhythm History of hypertension History of dyslipidemia Holding home medications of amlodipine 5 mg twice a day and losartan 50 mg twice a day. Use hydralazine IV and labetalol IV when necessary for SBP more than 170 TPN stopped 01/30. J-tube feeds advanced to goal. Lasix 40 mg IV bid daily for 2 more days. Resp: Acute hypercapnic respiratory failure Bilateral pleural effusions Extubated on 02/04, required reintubation on 02/06 for worsening respiratory distress probably secondary to anastomotic leak. Tolerating spontaneous breathing trials. Extubated on 02/11. Scheduled due nebs every 6 hours with albuterol nebulizers every 2 hours. Right pigtail catheter removed on 02/01, left pigtail catheter removed by surgery 02/02 GI: 01/19 -cholecystectomy, proximal gastrectomy with GE junction anastomosis and Botox injection by Dr. Ritchie 01/24 - bilateral chest tubes/open subtotal gastrectomy and jejunostomy placement Gastroesophageal reflux disease Currently on pantoprazole 40 mg IV daily Isidro tubes left/right, 20 ml output in 24 hours. J-tube feeds at 50 cc an hour as tolerated. Discussed with Dr. Howard covering for Dr. Ritchie regarding CT findings from 02/04 showing extraluminal air in fluid with contrast extending into posterior mediastinum and greenish yellow cloudy purulent drainage from Isidro drain raising concern for anastomotic leak. CT chest 02/08/17 showed leak at the GE junction. Patient underwent EGD with esophageal stent placement by GI on 02/13. : Soto catheter for accurate I's and O's in a critically ill patient Endo: Sliding-scale insulin with NovoLog every 4 hours/medium. Levemir 10 units twice a day Renal: Strict intake output, monitor and replete electrolytes, follow BUN/creatinine. Heme: Leukocytosis Normocytic anemia Monitor CBC daily. Follow trends ID: Currently on Zosyn, added vancomycin 01/27. Added fluconazole 400mg daily on for mae from ANDREW drain. Stopped levaquin 02/01 All blood cultures negative so far. Wound culture with mae. Lipscomb cultures sent on 01/31, 06/12 blood culture with Staph Warneri ? contaminant. ID Dr. Pate following Remains on antibiotics per ID. FEN: Replace electrolytes as clinically indicated Nutrition - Prealbumin 9, J tube feeds uninterrupted. MSK: Range of motion Access - Left subclavian CVL placed 02/06. - Right subclavian CVL 01/24-02/06, right upper extremity PICC placed 01/23 ( discontinue 02/01). Discontinued right radial arterial line 01/27 Prophylaxis - GI - pantoprazole - DVT - SCD/starting Lovenox for DVT prophylaxis on 02/14 . Discussed with patient and his at bedside. Further recommendations per GI/ surgery team. Overall impression: Nutrition and infection control will be the mainstays of treatment for now. Esophageal stent performed on 02/13. Generalized edema is resolving. Tolerating extubation well, no distress. Luc Pate MD Feb 14, 2017 10:24
[2017-02-14] MEDS: FLUCONAZOLE 400 MG PREMIX BAG 200 ML IV SCH (11:09)
[2017-02-14] MEDS: FUROSEMIDE 40 MG/4 ML VIAL IV PUSH SCH ×2 (11:10→20:49)
[2017-02-14] MEDS: METOPROLOL TARTRATE 25 MG TAB PO SCH ×2 (11:10→18:02)
[2017-02-14] MEDS: LISINOPRIL 5 MG TAB PO SCH ×2 (11:11→20:49)
[2017-02-14] MEDS: INSULIN DETEMIR 100 UNITS/ML VIAL SQ SCH ×2 (11:12→21:00)
--- NOTE | 2017-02-14 11:38 | RADRPT ---
EXAM DATE/TIME: 02/14/2017 10:06 CORRECTION Corrected on: February 16, 2017; [facility] COMPARISON: No previous studies available for comparison. INDICATIONS : Right arm swelling. MEDICAL HISTORY : Hypertension. Gastroesophageal reflux disease. Hernia, hiatal. Esophageal cancer. Stomach cancer. SURGICAL HISTORY : Right carpal tunnel release surgery. ENCOUNTER: Initial ACUITY: 2 day PAIN SCORE: 2/10 LOCATION: Right arm. FINDINGS: There is incompletely occlusive thrombus present in the right subclavian vein and also in the basilic vein. The forearm veins are patent. The jugular vein is patent with normal flow direction. 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 There is also incompletely occlusive clot in the basilic vein Gonzales Kilgore MD on February 14, 2017 at 11:33 Board Certified Radiologist. This report was verified electronically. Rivas Das MD FACR on February 16, 2017 at 9:58 Board Certified Radiologist. This report was verified electronically.
[2017-02-14] MEDS: fentaNYL DRIP 250 ML IV PRN (12:57)
--- NOTE | 2017-02-14 14:58 | HHI.PR ---
Subjective Subjective Notes Resting in bed at bedside No issues overnight Objective Vitals/I&O Vital Signs Date Time Temp Pulse Resp B/P (MAP) Pulse Ox O2 Delivery O2 Flow Rate FiO2 02/14/17 13:33 87 136/64 02/14/17 11:00 90 Nasal Cannula 5.00 02/14/17 08:00 98.3 12 02/13/17 08:56 31 Labs Laboratory Tests Test 02/14/17 05:40 Blood Urea Nitrogen 13 Creatinine 0.58 Random Glucose 127 Total Protein 7.0 Albumin 2.0 Calcium Level 7.9 Phosphorus Level 2.4 Magnesium Level 2.4 Alkaline Phosphatase 131 Aspartate Amino Transf (AST/SGOT) 23 Alanine Aminotransferase (ALT/SGPT) 25 Total Bilirubin 0.3 Sodium Level 144 Potassium Level 3.6 Chloride Level 109 Carbon Dioxide Level 30.4 Anion Gap 5 Estimat Glomerular Filtration Rate 141 Date/Time Source Procedure Growth Status 02/07/17 05:00 Blood Peripheral Aerobic Blood Culture - Final NO GROWTH IN 5 DAYS Complete 02/07/17 05:00 Blood Peripheral Anaerobic Blood Culture - Final NO GROWTH IN 5 DAYS Complete 02/06/17 09:30 Sputum Endotracheal Gram Stain - Final Complete 02/06/17 09:30 Sputum Endotracheal Sputum Culture - Final Complete 01/27/17 08:00 Urine Catheterized Urine Urine Culture - Final NO GROWTH IN 48 HOURS. Complete 02/04/17 17:00 Wound Abdomen Gram Stain - Final Complete 02/04/17 17:00 Wound Culture - Final Saida Albicans Complete Radiology Last Impressions Chest X-Ray 01/27/17 0600 Signed Impressions: Service Date/Time: Friday, January 27, 2017 04:22 - CONCLUSION: 1. Support apparatus in satisfactory position. Mild basilar airspace disease. No pneumothorax. Trace pleural fluid remains on the left. Jordan Lozano MD Lower Extremity Ultrasound 01/27/17 0000 Signed Impressions: Service Date/Time: Friday, January 27, 2017 12:49 - CONCLUSION: No DVT in either lower extremity. Elijah Funes MD Chest Ultrasound 01/24/17 0000 Signed Impressions: Service Date/Time: Tuesday, January 24, 2017 11:13 - CONCLUSION: 1. Large left pleural effusion. Jayson Das MD Chest CT 01/23/17 0000 Signed Impressions: Service Date/Time: Monday, January 23, 2017 18:54 - CONCLUSION: 1. Moderate-sized bilateral pleural effusions. Right pleural effusion has several small areas of loculation as above. 2. Bilateral lower lobe consolidation. 3. Somewhat mass like fullness in the right infrahilar region. A contrast- enhanced CT of the chest is recommended, preferably after resolution of pleural effusions and bibasilar consolidation. Gonzales Pierre MD Upper GI/Barium Swallow X-Ray 01/22/17 0000 Signed Impressions: Service Date/Time: Sunday, January 22, 2017 12:29 - CONCLUSION: 1. Findings suspicious for a small leak at the gastroesophageal junction with contrast pooling into an air fluid collection adjacent to the GE junction and distal esophagus. There was an end to side anastomosis performed so it is possible, but felt unlikely, that the collection represents a portion of the proximal stomach. 2. Findings were discussed with Dr. Ritchie. Gonzales Ramsay MD Abdomen CT 01/22/17 0000 Signed Impressions: Service Date/Time: Sunday, January 22, 2017 17:12 - CONCLUSION: 1. There is an abnormal air and fluid collection located to the right of the GE junction adjacent to the proximal stomach. It extends into the posterior mediastinum. The current appearance and findings on fluoroscopy examination earlier today are indicative of a leak at the anastomosis. The current surgical drain is not directly adjacent to the collection and based on the location I do not think that we could place a drain in an appropriate location percutaneously. 2. Small bilateral pleural effusions with associated atelectasis and/or consolidation in both lower lobes. Gonzales Ramsay MD Cardiovascular: Regular Lungs: Clear Abdomen: Other (midline incision with steri strips in place; J tube in place--- TF tubing disconnected and TF in bed; ANDREW x2 without drainage in bulb ) Extremities: Other (see below ) Narrative Exam Moderate scrotal edema Moderate generalized edema A/P Problem List: (1) Primary adenocarcinoma of distal third of esophagus ICD Codes: C15.5 - Malignant neoplasm of lower third of esophagus Status: Acute (2) Atrial fibrillation with RVR ICD Codes: I48.91 - Unspecified atrial fibrillation Status: Chronic (3) Acute hypoxemic respiratory failure ICD Codes: J96.01 - Acute respiratory failure with hypoxia Status: Resolved (4) Gastric adenocarcinoma ICD Codes: C16.9 - Malignant neoplasm of stomach, unspecified Status: Acute Assessment and Plan 66 year old male s/p laparoscopic gastrectomy and cholecystectomy with Botox injection; s/p bilateral thoracostomy tube placement; open subtotal gastrectomy ; jejunostomy tube placement -s/p esophagus stent placement -Consult IR for J tube evaluation -IVF -Continue ANDREW management ---RIGHT one out---place Wound 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 I reviewed and agree with the findings presented. I attest that I had a [id number] encounter with the patient on the same day, and personally performed and documented my assessment and findings in the medical record. Abdominal exam: stable, no peritonitis ANDREW minimal output after stent placement, work toward removing drains next several days Es Solis Feb 14, 2017 14:58 Josh Ritchie MD Mar 13, 2017 23:17
[2017-02-14] MEDS: ENOXAPARIN SODIUM 30 MG/0.3 ML SYRINGE SQ SCH ×2 (15:51→18:02)
[2017-02-14] MEDS: PANTOPRAZOLE SODIUM 40 MG VIAL IV SCH (18:02)
[2017-02-14] MEDS: LORazepam 2 MG/ML VIAL IV PRN (21:59)
[2017-02-15] VITALS (13 sets, daily range): BP systolic 96–165; BP diastolic 56–86; PULSE 58–98; RESP 13–20; TEMP 97.7–98.7; O2SAT 93–98
[2017-02-15] MEDS: METOPROLOL TARTRATE 25 MG TAB PO SCH ×4 (00:14→17:58)
[2017-02-15] MEDS: NYSTATIN SUSP 500,000 U/5 ML CUP SWISH-SWAL SCH ×5 (00:14→21:55)
[2017-02-15] MEDS: PIPERACIL-TAZO 4.5 GM PREMIX 100 ML IV SCH ×4 (04:00→21:35)
[2017-02-15] MEDS: ENOXAPARIN SODIUM 30 MG/0.3 ML SYRINGE SQ SCH ×2 (06:00→17:58)
[2017-02-15] MEDS: INSULIN ASPART SUPPLEMENTAL SCALE SQ SCH ×4 (06:00→18:00)
[2017-02-15] MEDS: LISINOPRIL 5 MG TAB PO SCH ×2 (09:13→21:37)
[2017-02-15] MEDS: INSULIN DETEMIR 100 UNITS/ML VIAL SQ SCH ×2 (09:16→21:55)
[2017-02-15] MEDS: FUROSEMIDE 40 MG/4 ML VIAL IV PUSH SCH (09:17)
[2017-02-15] MEDS: SODIUM CHLORIDE 0.9% FLUSH 10 ML FLUSH IV FLUSH SCH ×2 (09:18→21:37)
[2017-02-15] MEDS: POTASSIUM PHOSPHATE INJ 30 MMOL in SODIUM CHLOR 0.9% 250 ML INJ 250 ML IV PRN (09:29)
--- NOTE | 2017-02-15 09:35 | HHI.PR ---
Subjective Remarks doing ok. no new complaints eager for PT Objective Vitals nad heart reg lung cta abd jtube ext no edema Vital Signs Date Time Temp Pulse Resp B/P (MAP) Pulse Ox O2 Delivery O2 Flow Rate FiO2 02/15/17 06:00 95 02/15/17 04:00 97.7 58 20 96/60 (72) 98 02/15/17 04:00 61 02/15/17 02:00 91 02/15/17 00:00 88 02/15/17 00:00 98.7 98 17 116/56 (76) 94 02/14/17 22:00 90 02/14/17 20:00 98.7 87 22 124/64 (84) 94 02/14/17 20:00 84 02/14/17 19:00 94 Nasal Cannula 3.00 02/14/17 18:00 92 02/14/17 16:00 94 02/14/17 16:00 98.3 94 19 126/66 (86) 92 02/14/17 14:00 90 02/14/17 13:33 87 136/64 02/14/17 12:52 88 138/62 02/14/17 12:00 98.2 95 14 144/67 (92) 93 02/14/17 12:00 95 02/14/17 11:00 90 Nasal Cannula 5.00 02/14/17 10:00 94 Result Diagram: 02/12/17 0420 02/14/17 0540 Imaging Last Impressions Upper GI/Barium Swallow X-Ray 01/22/17 0000 Signed Impressions: Service Date/Time: Sunday, January 22, 2017 12:29 - CONCLUSION: 1. Findings suspicious for a small leak at the gastroesophageal junction with contrast pooling into an air fluid collection adjacent to the GE junction and distal esophagus. There was an end to side anastomosis performed so it is possible, but felt unlikely, that the collection represents a portion of the proximal stomach. 2. Findings were discussed with Dr. Ritchie. Gonzales Ramsay MD Chest X-Ray 01/22/17 0000 Signed Impressions: Service Date/Time: Sunday, January 22, 2017 12:42 - CONCLUSION: Bilateral pleural effusions. These have worsened compared to previous dated 01/21/17. Jayson Das MD Abdomen CT 8/14/17 0000 Signed Impressions: Service Date/Time: Sunday, January 22, 2017 17:12 - CONCLUSION: 1. There is an abnormal air and fluid collection located to the right of the GE junction adjacent to the proximal stomach. It extends into the posterior mediastinum. The current appearance and findings on fluoroscopy examination earlier today are indicative of a leak at the anastomosis. The current surgical drain is not directly adjacent to the collection and based on the location I do not think that we could place a drain in an appropriate location percutaneously. 2. Small bilateral pleural effusions with associated atelectasis and/or consolidation in both lower lobes. Gonzales Ramsay MD Last Impressions Chest X-Ray 01/21/17 0000 Signed Impressions: Service Date/Time: Saturday, January 21, 2017 11:47 - CONCLUSION: 1. Increasing opacity at the lung bases left greater than right with blunting of the costophrenic angle on the left consistent with an effusion. 2. Apparent nasogastric tube with the tip in the distal esophagus. The side-port appears projected over the mid esophagus. There is a second catheter projected over the mediastinum of unclear significance and needs correlation. This could be further evaluated with CT if indicated. Jose Diamond MD Objective Remarks General: NAD, AAOx3 Chest: Decreased breath sounds at the bases, on Venti mask Cardiac: Regular Abd: Decreased bowel sounds, ANDREW drain in place with holley fluid output Ext: No edema Line: Central Venous Catheter A/P Problem List: (1) Primary adenocarcinoma of distal third of esophagus ICD Codes: C15.5 - Malignant neoplasm of lower third of esophagus Status: Acute Plan: - Pt is a 66 y/o male recently diagnosed with 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 He was staged at a T1a,Nx based on EUS, CT thorax/Abd/pelvis and PET scan. Pt follows with Dr. Nickolas Luna for Oncology. - He was admitted to [facility] [place] on 01/17/17 for Laparoscopic partial gastrectomy and cholecystectomy with Botox injection with Dr. Ritchie. - Post-op pain control per Surgery - Pt is NPO with ANDREW drain in place - He has been requiring increased supplemental O2 - Pt more SOB on 01/21. - Repeat CXR (01/21) --> Increasing opacity at the lung bases left greater than right with blunting of the costophrenic angle on the left consistent with an effusion. Apparent nasogastric tube with the tip in the distal esophagus. The side-port appears projected over the mid esophagus. - He was given Lasix 20mg IV x one dose on 01/21. - Pt still requiring 5-6L via Venti-mask with O2 sats in the low 90's. - Gastrografin esophagram (01/22/17) --> Findings suspicious for a small leak at the gastroesophageal junction with contrast pooling into an air fluid collection adjacent to the GE junction and distal esophagus. There was an end to side anastomosis performed so it is possible, but felt unlikely, that the collection represents a portion of the proximal stomach. - CT Abd/pelvis (01/22/17) --> There is an abnormal air and fluid collection located to the right of the GE junction adjacent to the proximal stomach. It extends into the posterior mediastinum. The current appearance and findings on fluoroscopy examination earlier today are indicative of a leak at the anastomosis. The current surgical drain is not directly adjacent to the collection and based on the location I do not think that we could place a drain in an appropriate location percutaneously. Small bilateral pleural effusions with associated atelectasis and/or consolidation in both lower lobes. - Pathology --> Poorly differentiate adenocarcinoma and signet ring cell carcinoma, tumor extends to the proximal resection margin over a large area. The distal margin of resection is free of tumor. 01/19 -cholecystectomy, proximal gastrectomy with GE junction anastomosis and Botox injection by Dr. Ritchie 01/24 - bilateral chest tubes/open subtotal gastrectomy and jejunostomy placement -Pt developed afib/rvr -Developed respiratory failure and Intubated Reintubated on 02/06. Extubated on 02/11. -TPN stopped 01/30. J-tube feeds advanced to goal. -Right pigtail catheter removed on 02/01, left pigtail catheter removed by surgery 02/02 -CT findings from 02/04 showing extraluminal air in fluid with contrast extending into posterior mediastinum and greenish yellow cloudy purulent drainage from Isidro drain raising concern for anastomotic leak. -CT chest 02/08/17 showed leak at the GE junction. Patient underwent EGD with esophageal stent placement by GI on 02/13. -- Left subclavian CVL placed 02/06. - Right subclavian CVL 01/24-02/06, right upper extremity PICC placed 01/23 ( discontinue 02/01). Discontinued right radial arterial line -right upper ext u/s 02/14...nonocclusive dvt subclavian and basilic -Currently on Zosyn, added vancomycin 01/27..stopped 02/13. Added fluconazole 400mg daily on 01/29 for mae from ANDREW drain. Stopped levaquin 02/01 All blood cultures negative so far. Wound culture with mae. Lipscomb cultures sent on 01/31, 06/12 blood culture with Staph Warneri ? contaminant. ID Dr. Pate -Cont tube feeding at 60ml/hr -lovenox bid started on 02/14 for dvt -consult PT today -slider assembler planned to stop iv lasix tomorrow. monitor bmp -cont levemir/ssi -dvt prophylaxis. - (2) HTN (hypertension) ICD Codes: I10 - Essential (primary) hypertension Status: Chronic Plan: - HTN which is well controlled on Losartan 50mg po BID, Norvasc 5mg po BID and HCTZ 25mg po daily as an outpt - BP is significantly elevated today and IV Vasotec is not doing much to improve the BP - We will transfer the pt to where he can receive IV Hydralazine - Monitor BP closely (3) Hyperlipidemia ICD Codes: E78.5 - Hyperlipidemia, unspecified Status: Chronic Plan: - Hold home meds until tolerating oral intake (4) GERD (gastroesophageal reflux disease) ICD Codes: K21.9 - Gastro-esophageal reflux disease without esophagitis Status: Chronic Plan: - PPI Al Jenkins MD Feb 15, 2017 09:34
--- NOTE | 2017-02-15 10:57 | HHI.PR ---
Subjective Subjective Notes Resting in bed In good spirits today ETHAN Granados at bedside Objective Vitals/I&O Vital Signs Date Time Temp Pulse Resp B/P (MAP) Pulse Ox O2 Delivery O2 Flow Rate FiO2 02/15/17 09:44 93 Nasal Cannula 4.00 02/15/17 06:00 95 02/15/17 04:00 97.7 20 96/60 (72) 02/13/17 08:56 31 Labs Date/Time Source Procedure Growth Status 02/07/17 05:00 Blood Peripheral Aerobic Blood Culture - Final NO GROWTH IN 5 DAYS Complete 02/07/17 05:00 Blood Peripheral Anaerobic Blood Culture - Final NO GROWTH IN 5 DAYS Complete 02/06/17 09:30 Sputum Endotracheal Gram Stain - Final Complete 02/06/17 09:30 Sputum Endotracheal Sputum Culture - Final Complete 01/27/17 08:00 Urine Catheterized Urine Urine Culture - Final NO GROWTH IN 48 HOURS. Complete 02/04/17 17:00 Wound Abdomen Gram Stain - Final Complete 02/04/17 17:00 Wound Culture - Final Saida Albicans Complete Radiology Last Impressions Chest X-Ray 01/27/17 0600 Signed Impressions: Service Date/Time: Friday, January 27, 2017 04:22 - CONCLUSION: 1. Support apparatus in satisfactory position. Mild basilar airspace disease. No pneumothorax. Trace pleural fluid remains on the left. Jordan Lozano MD Lower Extremity Ultrasound 01/27/17 0000 Signed Impressions: Service Date/Time: Friday, January 27, 2017 12:49 - CONCLUSION: No DVT in either lower extremity. Elijah Funes MD Chest Ultrasound 01/24/17 0000 Signed Impressions: Service Date/Time: Tuesday, January 24, 2017 11:13 - CONCLUSION: 1. Large left pleural effusion. Jayson Das MD Chest CT 01/23/17 0000 Signed Impressions: Service Date/Time: Monday, January 23, 2017 18:54 - CONCLUSION: 1. Moderate-sized bilateral pleural effusions. Right pleural effusion has several small areas of loculation as above. 2. Bilateral lower lobe consolidation. 3. Somewhat mass like fullness in the right infrahilar region. A contrast- enhanced CT of the chest is recommended, preferably after resolution of pleural effusions and bibasilar consolidation. Gonzales Pierre MD Upper GI/Barium Swallow X-Ray 01/22/17 0000 Signed Impressions: Service Date/Time: Sunday, January 22, 2017 12:29 - CONCLUSION: 1. Findings suspicious for a small leak at the gastroesophageal junction with contrast pooling into an air fluid collection adjacent to the GE junction and distal esophagus. There was an end to side anastomosis performed so it is possible, but felt unlikely, that the collection represents a portion of the proximal stomach. 2. Findings were discussed with Dr. Ritchie. Gonzales Ramsay MD Abdomen CT 01/22/17 0000 Signed Impressions: Service Date/Time: Sunday, January 22, 2017 17:12 - CONCLUSION: 1. There is an abnormal air and fluid collection located to the right of the GE junction adjacent to the proximal stomach. It extends into the posterior mediastinum. The current appearance and findings on fluoroscopy examination earlier today are indicative of a leak at the anastomosis. The current surgical drain is not directly adjacent to the collection and based on the location I do not think that we could place a drain in an appropriate location percutaneously. 2. Small bilateral pleural effusions with associated atelectasis and/or consolidation in both lower lobes. 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; LEFT ANDREW without any drainage; abdomen soft minimally tender ) Extremities: Other (see below ) Narrative Exam Moderate scrotal edema Moderate generalized edema A/P Problem List: (1) Primary adenocarcinoma of distal third of esophagus ICD Codes: C15.5 - Malignant neoplasm of lower third of esophagus Status: Acute (2) Atrial fibrillation with RVR ICD Codes: I48.91 - Unspecified atrial fibrillation Status: Chronic (3) Acute hypoxemic respiratory failure ICD Codes: J96.01 - Acute respiratory failure with hypoxia Status: Resolved (4) Gastric adenocarcinoma ICD Codes: C16.9 - Malignant neoplasm of stomach, unspecified Status: Acute Assessment and Plan 66 year old male s/p laparoscopic gastrectomy and cholecystectomy with Botox injection; s/p bilateral thoracostomy tube placement; open subtotal gastrectomy ; jejunostomy tube placement -s/p esophagus stent placement -J tube not functional; tolerated TF at 60 cc/hr -IVF -Continue ANDREW management ---RIGHT one out--- Wound Still Operator in place for collection -US shows DVT--- Lovenox BID -PT -Discussed with ETHAN Granados Attending Statement The exam, history, and the medical decision-making described in the above note were completed with the assistance of the mid-level provider. I reviewed and agree with the findings presented. I attest that I had a [id number] encounter with the patient on the same day, and personally performed and documented my assessment and findings in the medical record. Abdominal exam: soft, non-tender continues to improve clinically, close to rehab placement Es Solis Feb 15, 2017 10:57 Josh Ritchie MD Mar 13, 2017 23:22
[2017-02-15] MEDS: FLUCONAZOLE 400 MG PREMIX BAG 200 ML IV SCH (11:19)
[2017-02-15] MEDS: ONDANSETRON HCL 4 MG/2 ML VIAL IV PRN (11:19)
--- NOTE | 2017-02-15 16:42 | HHI.GIFU ---
Subjective Remarks Resting in bed. No distress. TF to J tube. Taking ice chips. (Sylwia Gallagher) Objective Vitals I&O Vital Signs Date Time Temp Pulse Resp B/P (MAP) Pulse Ox O2 Delivery O2 Flow Rate FiO2 02/15/17 09:44 93 Nasal Cannula 4.00 02/15/17 06:00 95 02/15/17 04:00 97.7 58 20 96/60 (72) 98 02/15/17 04:00 61 02/15/17 02:00 91 02/15/17 00:00 88 02/15/17 00:00 98.7 98 17 116/56 (76) 94 02/14/17 22:00 90 02/14/17 20:00 98.7 87 22 124/64 (84) 94 02/14/17 20:00 84 02/14/17 19:00 94 Nasal Cannula 3.00 02/14/17 18:00 92 I/O 02/14/17 02/14/17 02/14/17 02/15/17 02/15/17 02/15/17 06:59 14:59 22:59 06:59 14:59 22:59 Intake Total 1741 ml 1705 ml 790 ml Output Total 2804 ml 980 ml 1460 ml 850 ml Balance -1063 ml -980 ml 245 ml -60 ml Intake Oral 300 ml 100 ml 240 ml IV Total 769 ml 1149 ml Tube Feeding 672 ml 456 ml 450 ml Other 100 ml Output Urine Total 2750 ml 830 ml 1370 ml 850 ml Stool Total 50 ml 150 ml 90 ml Drainage Total 4 ml 0 ml 0 ml # Bowel Movements 1 1 1 3 Laboratory Date/Time Source Procedure Growth Status 02/07/17 05:00 Blood Peripheral Aerobic Blood Culture - Final NO GROWTH IN 5 DAYS Complete 02/07/17 05:00 Blood Peripheral Anaerobic Blood Culture - Final NO GROWTH IN 5 DAYS Complete 02/06/17 09:30 Sputum Endotracheal Gram Stain - Final Complete 02/06/17 09:30 Sputum Endotracheal Sputum Culture - Final Complete 01/27/17 08:00 Urine Catheterized Urine Urine Culture - Final NO GROWTH IN 48 HOURS. Complete 02/04/17 17:00 Wound Abdomen Gram Stain - Final Complete 02/04/17 17:00 Wound Culture - Final Saida Albicans Complete Imaging Last Impressions Upper Extremity Ultrasound 02/14/17 0000 Signed Impressions: Service Date/Time: Tuesday, February 14, 2017 10:06 - CONCLUSION: Incompletely occlusive DVT in the left subclavian vein. There is also incompletely occlusive clot in the basilic vein Gonzales Kilgore MD GI Procedure 02/13/17 0000 Signed Impressions: Service Date/Time: Monday, February 13, 2017 13:31 - CONCLUSION: 1. Postsurgical changes as above. Bradley Jacosben MD Chest X-Ray 02/09/17 0000 Signed Impressions: Service Date/Time: Thursday, February 09, 2017 10:08 - CONCLUSION: Interval improvement with persistent consolidative changes left base. Rivas Das MD FACR Chest CT 02/08/17 0000 Signed Impressions: Service Date/Time: January 15:50 - CONCLUSION: 1. Leak involving the GE junction as detailed in the above discussion. 2. Slight decrease in size of the small bilateral pleural effusions. 3. Unchanged bibasilar infiltrates. Chalino Olmedo Jr., MD Abdomen/Pelvis CT 02/04/17 0000 Signed Impressions: Service Date/Time: Saturday, February 04, 2017 23:18 - CONCLUSION: 1. No abscess is visualized, as questioned. However, there continues to be a small amount of fluid and air that appears extraluminal and located adjacent to the proximal stomach and extending into the posterior mediastinum adjacent to the distal esophagus. The right subhepatic drain is located near a portion of the fluid collection. There is also trace free fluid in the pelvis. 2. Anasarca. 3. Please refer to chest CT report for description of the supradiaphragmatic findings. Gonzales Ramsay MD Lower Extremity Ultrasound 01/27/17 0000 Signed Impressions: Service Date/Time: Friday, January 27, 2017 12:49 - CONCLUSION: No DVT in either lower extremity. Elijah Funes MD Chest Ultrasound 01/24/17 0000 Signed Impressions: Service Date/Time: Tuesday, January 24, 2017 11:13 - CONCLUSION: 1. Large left pleural effusion. Jayson Das MD Upper GI/Barium Swallow X-Ray 01/22/17 0000 Signed Impressions: Service Date/Time: Sunday, January 22, 2017 12:29 - CONCLUSION: 1. Findings suspicious for a small leak at the gastroesophageal junction with contrast pooling into an air fluid collection adjacent to the GE junction and distal esophagus. There was an end to side anastomosis performed so it is possible, but felt unlikely, that the collection represents a portion of the proximal stomach. 2. Findings were discussed with Dr. Ritchie. Gonzales Ramsay MD Abdomen CT 01/22/17 0000 Signed Impressions: Service Date/Time: Sunday, January 22, 2017 17:12 - CONCLUSION: 1. There is an abnormal air and fluid collection located to the right of the GE junction adjacent to the proximal stomach. It extends into the posterior mediastinum. The current appearance and findings on fluoroscopy examination earlier today are indicative of a leak at the anastomosis. The current surgical drain is not directly adjacent to the collection and based on the location I do not think that we could place a drain in an appropriate location percutaneously. 2. Small bilateral pleural effusions with associated atelectasis and/or consolidation in both lower lobes. Gonzales Ramsay MD Physical Exam HEENT: Normocephalic; atraumatic CHEST: CTA. Diminished bases CARDIAC: RRR with no murmur gallop or rubs. ABDOMEN: Soft, obese, mildly distended, mild diffuse. Midline incision with steri strips in place. ANDREW drain on left. Drainage bag to old right j tube site. EXTREMITIES: Trace edema at BLE SKIN: Normal; no rash; no jaundice. RHEUMATOLOGIST: Alert (Sylwia Gallagher) Assessment and Plan Plan ASSESSMENT: - Possible esophageal leak, GI consulted for possible esophageal stent placement. S/P laparoscopic proximal partial gastrectomy with esophageal gastric anastomosis, laparoscopic cholecystectomy, injection of the pylorus with Botox with Dr. Pisano on 01/17/17. Gastrografin swallow (01/22/17)---> findings suspicious for a small leak at the gastroesophageal junction with contrast pooling into an air fluid collection adjacent to the GE junction and distal esophagus. There was an end to side anastomosis performed so it is possible, but felt unlikely, that the collection represents a portion of the proximal stomach. His pathology came back with positive margins and and therefore he underwent open subtotal gastrectomy with gastric and duodenal formation and gastroesophageal an anastomosis, jejunostomy feeding tube placement, bilateral thoracostomy tube placement (01/24/17). He was then evaluated with CT thorax (02/04/17), which did not appreciate any signs of leak, but this was done without oral contrast. GI has been consulted for evaluation for possible esophageal stent placement. CT thorax (02/08/17)----> Leak involving the GE junction as detailed in the above discussion, slight decrease in size of the small bilateral pleural effusions, unchanged bibasilar infiltrates. S/P EGD ()---> Esophagus this was unremarkable up until the distal end where noted inflammation friability with a large fistulous opening with obvious surgical changes and bulging at the anastomosis the bulging was biopsied the fistulous opening we tried to apply some clips but there was too much friability and the clips wouldn't hold. The small bowel attached to the esophagus appeared to be unremarkable. S/P EGD with stent placement (02/13/17)----> EGD showed possible fistula in the GE junction, stent was placed 105 mm x 22 mm without any difficulty under fluoroscopy with verification that anastomosis and the mid area of the stent. TF via J tube. Taking ice chips orally. Zoysn, Diflucan - Leukocytosis. ID following. Zosyn, Diflucan - Respiratory failure/Pleural effusions. S/P extubation. 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 EGD/colonoscopy (11/30/16)---> Nodule 1 cm distal esophagus, indurated biopsies multiple. Gastritis in antrum/body, duodenitis second portion, bx, retroflex views revealed a small hiatal hernia. Polyp diminutive cecum- cold biopsy with complete removal polyp sessile ascending colon 8 mmc old snare polypectomy with complete removal polyp in the chelated 2 cm hot snare polypectomy random biopsies from the ascending and descending to rule out microscopic colitis, diverticulosis sigmoid, descending. Pathology revealed invasive adenocarcinoma with signet reading features tumor shows strong reactivity first CDX-2 and is negative for CD68 immunostains, cecum polyp tubular adenoma, negative for high grade dysplasia or malignancy, ascending colon polyp tubular adenoma, ascending, descending colon with cold colonic mucosa showing no pathologic abnormalities. Descending colon polyp tubular adenoma. He was then evaluated with EUS (12/07)---> hypoechoic 0.48 x 0.91 lesion of the cardia at the edge of the GE junction, T1a Nx no lymphadenopathy. PET Scan (12/11/16)----> unremarkable study without evidence for active malignancy or metastatic disease. He was then evaluated by oncology (Dr. Luna) and was then referred to surgical oncology. S/P surgery as above. PLAN: - TF - Cont. Abx - Cont. IVF - Supportive care - Further recommendations to follow based on how this patient doing in the next few days - Patient will need stent removal with EGD in about 6 weeks - Pt seen and examined by Dr. Ríos and myself and this note is written on his behalf (Sylwia Gallagher) Plan Patient was seen and examined, agree with the above note, patient looks very good today and he and his feel that since the stent was placed he's doing much better. Upper GI series could be done and if there is no leak around the stent then the patient can start feeding and we come follow in few weeks as an outpatient to determine how long to keep the stent. We will follow up as needed now (Mira Ríos MD) Sylwia Gallagher Feb 15, 2017 16:42 Mira Ríos MD Feb 15, 2017 22:15
[2017-02-15] MEDS: hydrALAZINE HCL 20 MG/ML VIAL IV PUSH PRN (17:58)
[2017-02-15] MEDS: PANTOPRAZOLE SODIUM 40 MG VIAL IV SCH (17:58)
[2017-02-15 18:37] LABS: BICARBONATE 31.4 MEQ/L (21.0-32.0); POTASSIUM 3.4 MEQ/L (3.5-5.1)
[2017-02-16] VITALS (13 sets, daily range): BP systolic 147–185; BP diastolic 73–82; PULSE 61–88; RESP 15–23; TEMP 98.4–99.9; O2SAT 95–97
[2017-02-16] MEDS: ALPRAZolam 0.25 MG TAB PO PRN (00:21)
[2017-02-16] MEDS: METOPROLOL TARTRATE 25 MG TAB PO SCH ×4 (00:21→23:03)
[2017-02-16 04:29] LABS: BICARBONATE 27.7 MEQ/L (21.0-32.0); POTASSIUM 3.6 MEQ/L (3.5-5.1)
[2017-02-16] MEDS: PIPERACIL-TAZO 4.5 GM PREMIX 100 ML IV SCH ×4 (04:33→23:03)
[2017-02-16] MEDS: NYSTATIN SUSP 500,000 U/5 ML CUP SWISH-SWAL SCH ×4 (04:33→23:02)
[2017-02-16] MEDS: INSULIN ASPART SUPPLEMENTAL SCALE SQ SCH ×5 (06:00→23:18)
[2017-02-16] MEDS: ENOXAPARIN SODIUM 30 MG/0.3 ML SYRINGE SQ SCH (06:35)
[2017-02-16] MEDS: FUROSEMIDE 40 MG/4 ML VIAL IV PUSH SCH (08:42)
[2017-02-16] MEDS: SODIUM CHLORIDE 0.9% FLUSH 10 ML FLUSH IV FLUSH SCH ×2 (08:42→23:02)
[2017-02-16] MEDS: LISINOPRIL 5 MG TAB PO SCH (08:43)
[2017-02-16] MEDS: INSULIN DETEMIR 100 UNITS/ML VIAL SQ SCH ×2 (08:45→21:00)
--- NOTE | 2017-02-16 08:57 | HHI.PR ---
Subjective Remarks more chest congestion. Objective Vitals nad heart reg lung course bs abd j tube ext no edema Vital Signs Date Time Temp Pulse Resp B/P (MAP) Pulse Ox O2 Delivery O2 Flow Rate FiO2 02/16/17 08:41 95 Nasal Cannula 2.00 02/16/17 07:00 96 Nasal Cannula 4.00 Humidified 02/16/17 06:00 86 02/16/17 04:00 99.9 88 18 167/77 (107) 95 02/16/17 04:00 88 02/16/17 02:00 84 02/16/17 00:00 86 02/16/17 00:00 98.5 86 19 173/82 (112) 97 02/15/17 22:00 84 02/15/17 20:00 89 02/15/17 20:00 98.5 89 20 165/79 (107) 93 02/15/17 19:00 98 Nasal Cannula 4.00 Humidified 02/15/17 18:00 89 02/15/17 16:00 83 02/15/17 16:00 98.3 83 18 158/86 (110) 97 02/15/17 14:00 83 02/15/17 12:00 98.6 87 19 140/64 (89) 96 02/15/17 12:00 87 02/15/17 10:00 83 02/15/17 09:44 93 Nasal Cannula 4.00 Result Diagram: 02/12/17 0420 02/16/17 0355 Imaging Last Impressions Upper GI/Barium Swallow X-Ray 01/22/17 0000 Signed Impressions: Service Date/Time: Sunday, January 22, 2017 12:29 - CONCLUSION: 1. Findings suspicious for a small leak at the gastroesophageal junction with contrast pooling into an air fluid collection adjacent to the GE junction and distal esophagus. There was an end to side anastomosis performed so it is possible, but felt unlikely, that the collection represents a portion of the proximal stomach. 2. Findings were discussed with Dr. Ritchie. Gonzales Ramsay MD Chest X-Ray 01/22/17 0000 Signed Impressions: Service Date/Time: Sunday, January 22, 2017 12:42 - CONCLUSION: Bilateral pleural effusions. These have worsened compared to previous dated 01/21/17. Jayson Das MD Abdomen CT 8/14/17 0000 Signed Impressions: Service Date/Time: Sunday, January 22, 2017 17:12 - CONCLUSION: 1. There is an abnormal air and fluid collection located to the right of the GE junction adjacent to the proximal stomach. It extends into the posterior mediastinum. The current appearance and findings on fluoroscopy examination earlier today are indicative of a leak at the anastomosis. The current surgical drain is not directly adjacent to the collection and based on the location I do not think that we could place a drain in an appropriate location percutaneously. 2. Small bilateral pleural effusions with associated atelectasis and/or consolidation in both lower lobes. Gonzales Ramsay MD Last Impressions Chest X-Ray 01/21/17 0000 Signed Impressions: Service Date/Time: Saturday, January 21, 2017 11:47 - CONCLUSION: 1. Increasing opacity at the lung bases left greater than right with blunting of the costophrenic angle on the left consistent with an effusion. 2. Apparent nasogastric tube with the tip in the distal esophagus. The side-port appears projected over the mid esophagus. There is a second catheter projected over the mediastinum of unclear significance and needs correlation. This could be further evaluated with CT if indicated. 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 He was staged at a T1a,Nx based on EUS, CT thorax/Abd/pelvis and PET scan. Pt follows with Dr. Nickolas Luna for Oncology. - He was admitted to [facility] on 01/17/17 for Laparoscopic partial gastrectomy and cholecystectomy with Botox injection with Dr. Ritchie. - Post-op pain control per Surgery - Pt is NPO with ANDREW drain in place - He has been requiring increased supplemental O2 - Pt more SOB on 01/21. - Repeat CXR (01/21) --> Increasing opacity at the lung bases left greater than right with blunting of the costophrenic angle on the left consistent with an effusion. Apparent nasogastric tube with the tip in the distal esophagus. The side-port appears projected over the mid esophagus. - He was given Lasix 20mg IV x one dose on 01/21. - Pt still requiring 5-6L via Venti-mask with O2 sats in the low 90's. - Gastrografin esophagram (01/22/17) --> Findings suspicious for a small leak at the gastroesophageal junction with contrast pooling into an air fluid collection adjacent to the GE junction and distal esophagus. There was an end to side anastomosis performed so it is possible, but felt unlikely, that the collection represents a portion of the proximal stomach. - CT Abd/pelvis (01/22/17) --> There is an abnormal air and fluid collection located to the right of the GE junction adjacent to the proximal stomach. It extends into the posterior mediastinum. The current appearance and findings on fluoroscopy examination earlier today are indicative of a leak at the anastomosis. The current surgical drain is not directly adjacent to the collection and based on the location I do not think that we could place a drain in an appropriate location percutaneously. Small bilateral pleural effusions with associated atelectasis and/or consolidation in both lower lobes. - Pathology --> Poorly differentiate adenocarcinoma and signet ring cell carcinoma, tumor extends to the proximal resection margin over a large area. The distal margin of resection is free of tumor. 01/19 -cholecystectomy, proximal gastrectomy with GE junction anastomosis and Botox injection by Dr. Ritchie 01/24 - bilateral chest tubes/open subtotal gastrectomy and jejunostomy placement -Pt developed afib/rvr -Developed respiratory failure and Intubated Reintubated on 02/06. Extubated on 02/11. -TPN stopped 01/30. J-tube feeds advanced to goal. -Right pigtail catheter removed on 02/01, left pigtail catheter removed by surgery 02/02 -CT findings from 02/04 showing extraluminal air in fluid with contrast extending into posterior mediastinum and greenish yellow cloudy purulent drainage from Isidro drain raising concern for anastomotic leak. -CT chest 02/08/17 showed leak at the GE junction. Patient underwent EGD with esophageal stent placement by GI on 02/13. -- Left subclavian CVL placed 02/06. - Right subclavian CVL 01/24-02/06, right upper extremity PICC placed 01/23 ( discontinue 02/01). Discontinued right radial arterial line -right upper ext u/s 02/14...nonocclusive dvt subclavian and basilic -Currently on Zosyn, added vancomycin 01/27..stopped 02/13. Added fluconazole 400mg daily on 01/29 for mae from ANDREW drain. Stopped levaquin 02/01 All blood cultures negative so far. Wound culture with mae. Lipscomb cultures sent on 01/31, 06/12 blood culture with Staph Warneri ? contaminant. ID Dr. Pate -Cont tube feeding at 60ml/hr -lovenox bid started on 02/14 for dvt -consulted PT -on iv lasix for volume overload. improving. monitor bmp -cont levemir/ssi -dvt prophylaxis. -add nebs/mucomyst for increasing chest congestion. - (2) HTN (hypertension) ICD Codes: I10 - Essential (primary) hypertension Status: Chronic Plan: - HTN which is well controlled on Losartan 50mg po BID, Norvasc 5mg po BID and HCTZ 25mg po daily as an outpt - BP is significantly elevated today and IV Vasotec is not doing much to improve the BP - We will transfer the pt to where he can receive IV Hydralazine - Monitor BP closely (3) Hyperlipidemia ICD Codes: E78.5 - Hyperlipidemia, unspecified Status: Chronic Plan: - Hold home meds until tolerating oral intake (4) GERD (gastroesophageal reflux disease) ICD Codes: K21.9 - Gastro-esophageal reflux disease without esophagitis Status: Chronic Plan: - PPI Al Jenkins MD Feb 16, 2017 08:57
[2017-02-16] MEDS ORDERED: POTASSIUM CHLORIDE 20 MEQ CONTROLLED RELEASE TAB PO SCH (09:00)
[2017-02-16] MEDS: RESP: ACETYLCYSTEINE 20% 30 ML NEB NEB SCH ×4 (09:00→20:02)
[2017-02-16] MEDS: RESP: ALBUTEROL 2.5 MG/IPRATROPIUM 0.5 MG NEB (SCH) NEB ×4 (09:00→20:02)
[2017-02-16] MEDS: FLUCONAZOLE 400 MG PREMIX BAG 200 ML IV SCH (10:17)
[2017-02-16] MEDS: guaiFENesin E.R. 600 MG TAB PO SCH ×2 (10:17→23:02)
--- NOTE | 2017-02-16 10:49 | HHI.PR ---
Subjective Subjective Notes Ambulating in room Up to bathroom Objective Vitals/I&O Vital Signs Date Time Temp Pulse Resp B/P (MAP) Pulse Ox O2 Delivery O2 Flow Rate FiO2 02/16/17 10:00 84 02/16/17 08:41 95 Nasal Cannula 2.00 02/16/17 08:00 99.2 23 171/81 (111) 02/15/17 08:00 96 Labs Laboratory Tests Test 02/15/17 17:45 02/16/17 03:55 Blood Urea Nitrogen 11 9 Creatinine 0.56 0.49 Random Glucose 118 109 Calcium Level 7.5 7.8 Sodium Level 143 142 Potassium Level 3.4 3.6 Chloride Level 106 106 Carbon Dioxide Level 31.4 27.7 Anion Gap 6 8 Estimat Glomerular Filtration Rate 147 171 Date/Time Source Procedure Growth Status 02/07/17 05:00 Blood Peripheral Aerobic Blood Culture - Final NO GROWTH IN 5 DAYS Complete 02/07/17 05:00 Blood Peripheral Anaerobic Blood Culture - Final NO GROWTH IN 5 DAYS Complete 02/06/17 09:30 Sputum Endotracheal Gram Stain - Final Complete 02/06/17 09:30 Sputum Endotracheal Sputum Culture - Final Complete 01/27/17 08:00 Urine Catheterized Urine Urine Culture - Final NO GROWTH IN 48 HOURS. Complete 02/04/17 17:00 Wound Abdomen Gram Stain - Final Complete 02/04/17 17:00 Wound Culture - Final Saida Albicans Complete Radiology Last Impressions Chest X-Ray 01/27/17 0600 Signed Impressions: Service Date/Time: Friday, January 27, 2017 04:22 - CONCLUSION: 1. Support apparatus in satisfactory position. Mild basilar airspace disease. No pneumothorax. Trace pleural fluid remains on the left. Jordan Lozano MD Lower Extremity Ultrasound 01/27/17 0000 Signed Impressions: Service Date/Time: Friday, January 27, 2017 12:49 - CONCLUSION: No DVT in either lower extremity. Elijah Funes MD Chest Ultrasound 01/24/17 0000 Signed Impressions: Service Date/Time: Tuesday, January 24, 2017 11:13 - CONCLUSION: 1. Large left pleural effusion. Jayson Das MD Chest CT 01/23/17 0000 Signed Impressions: Service Date/Time: Monday, January 23, 2017 18:54 - CONCLUSION: 1. Moderate-sized bilateral pleural effusions. Right pleural effusion has several small areas of loculation as above. 2. Bilateral lower lobe consolidation. 3. Somewhat mass like fullness in the right infrahilar region. A contrast- enhanced CT of the chest is recommended, preferably after resolution of pleural effusions and bibasilar consolidation. Gonzales Pierre MD Upper GI/Barium Swallow X-Ray 01/22/17 0000 Signed Impressions: Service Date/Time: Sunday, January 22, 2017 12:29 - CONCLUSION: 1. Findings suspicious for a small leak at the gastroesophageal junction with contrast pooling into an air fluid collection adjacent to the GE junction and distal esophagus. There was an end to side anastomosis performed so it is possible, but felt unlikely, that the collection represents a portion of the proximal stomach. 2. Findings were discussed with Dr. Ritchie. Gonzales Ramsay MD Abdomen CT 01/22/17 0000 Signed Impressions: Service Date/Time: Sunday, January 22, 2017 17:12 - CONCLUSION: 1. There is an abnormal air and fluid collection located to the right of the GE junction adjacent to the proximal stomach. It extends into the posterior mediastinum. The current appearance and findings on fluoroscopy examination earlier today are indicative of a leak at the anastomosis. The current surgical drain is not directly adjacent to the collection and based on the location I do not think that we could place a drain in an appropriate location percutaneously. 2. Small bilateral pleural effusions with associated atelectasis and/or consolidation in both lower lobes. Gonzales Ramsay MD Cardiovascular: Regular Lungs: Clear Abdomen: Other (midline incision with Steri strips in place; ANDREW L with minimal thick drainage; J tube with TF ) Extremities: Other (see below ) Narrative Exam Moderate scrotal edema Moderate generalized edema A/P Problem List: (1) Primary adenocarcinoma of distal third of esophagus ICD Codes: C15.5 - Malignant neoplasm of lower third of esophagus Status: Acute (2) Atrial fibrillation with RVR ICD Codes: I48.91 - Unspecified atrial fibrillation Status: Chronic (3) Acute hypoxemic respiratory failure ICD Codes: J96.01 - Acute respiratory failure with hypoxia Status: Resolved (4) Gastric adenocarcinoma ICD Codes: C16.9 - Malignant neoplasm of stomach, unspecified Status: Acute Assessment and Plan 66 year old male s/p laparoscopic gastrectomy and cholecystectomy with Botox injection; s/p bilateral thoracostomy tube placement; open subtotal gastrectomy ; jejunostomy tube placement -s/p esophagus stent placement -Tolerating TF at goal -Okay for Ice and sips of water -IVF -Continue ANDREW management ---RIGHT one out---okay to remove [employer] -DC [place] -DC Central line in PIV access obtained -US shows DVT--- Lovenox BID -PT -Transfer to MS floor Attending Statement The exam, history, and the medical decision-making described in the above note were completed with the assistance of the mid-level provider. I reviewed and agree with the findings presented. I attest that I had a [id number] encounter with the patient on the same day, and personally performed and documented my assessment and findings in the medical record. Abdominal exam: stable, non-tender OOB with PT, working toward rehab, no signs of complications from stent Es Solis Feb 16, 2017 10:49 Josh Ritchie MD Mar 13, 2017 23:27
[2017-02-16 14:42] LABS: BICARBONATE 26.9 MEQ/L (21.0-32.0); POTASSIUM 3.9 MEQ/L (3.5-5.1)
[2017-02-16 15:00] LABS: AUTOMATED NEUTROPHIL # 7.3 TH/MM3 (1.8-7.7); BASOPHIL # 0.1 TH/MM3 (0-0.2); BASOPHIL % 0.6 % (0.0-2.0); EOSINOPHIL # 0.1 TH/MM3 (0-0.4); EOSINOPHIL % 0.8 % (0.0-4.0); HEMATOCRIT 32.4 % (39.0-51.0); HEMO FLAGS AUTO DIFF; LYMPH % 16.1 % (9.0-44.0); LYMPHOCYTE # 1.6 TH/MM3 (1.0-4.8); MEAN CELL VOLUME 93.3 FL (80.0-100.0); MEAN CORPUSCULAR HEMOGLOBIN 30.9 PG (27.0-34.0); MEAN CORPUSCULAR HGB CONC 33.1 % (32.0-36.0); MONO % 10.2 % (0.0-8.0); NEUT % 72.3 % (16.0-70.0); PLATELET COUNT 248 TH/MM3 (150-450); RED BLOOD COUNT 3.47 MIL/MM3 (4.50-5.90); RED CELL DISTRIBUTION WIDTH 13.9 % (11.6-17.2); WHITE BLOOD COUNT 10.1 TH/MM3 (4.0-11.0)
[2017-02-16 15:30] LABS: PLATELET ESTIMATE SMEAR NORMAL (NORMAL); PLATELET MORPHOLOGY NORMAL (NORMAL); SCAN/DIFF AUTO DIFF CONFIRMED
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
[2017-02-16] MEDS ORDERED: ENALAPRILAT 1.25 MG/ML VIAL IV PUSH PRN (16:45)
[2017-02-16] MEDS: PANTOPRAZOLE SODIUM 40 MG VIAL IV SCH (18:00)
[2017-02-16] MEDS: LISINOPRIL 10 MG TAB PO SCH (23:02)
[2017-02-17] VITALS (8 sets, daily range): BP systolic 147–174; BP diastolic 72–90; PULSE 81–103; RESP 19–22; TEMP 97.7–98.2; O2SAT 93–97
[2017-02-17] MEDS: INSULIN ASPART SUPPLEMENTAL SCALE SQ SCH ×4 (06:00→23:00)
[2017-02-17] MEDS: NYSTATIN SUSP 500,000 U/5 ML CUP SWISH-SWAL SCH ×4 (06:03→22:59)
[2017-02-17] MEDS: ENOXAPARIN SODIUM 30 MG/0.3 ML SYRINGE SQ SCH ×2 (06:04→17:48)
[2017-02-17] MEDS: METOPROLOL TARTRATE 25 MG TAB PO SCH ×4 (06:04→23:00)
[2017-02-17] MEDS: PIPERACIL-TAZO 4.5 GM PREMIX 100 ML IV SCH ×4 (06:04→21:02)
[2017-02-17] MEDS: RESP: ALBUTEROL 2.5 MG/IPRATROPIUM 0.5 MG NEB (SCH) NEB ×4 (08:05→20:21)
[2017-02-17] MEDS: RESP: ACETYLCYSTEINE 20% 30 ML NEB NEB SCH (08:05)
[2017-02-17 08:09] LABS: POTASSIUM 3.3 MEQ/L (3.5-5.1)
--- NOTE | 2017-02-17 09:52 | HHI.PR ---
Subjective Remarks doing much better. Objective Vitals heart reg lung cta abd s/nt. jtube ext no edema Vital Signs Date Time Temp Pulse Resp B/P (MAP) Pulse Ox O2 Delivery O2 Flow Rate FiO2 02/17/17 04:00 97.7 93 20 169/90 (116) 94 02/17/17 00:00 98.2 82 22 174/84 (114) 95 02/16/17 20:30 Nasal Cannula 2.00 02/16/17 20:30 61 02/16/17 20:02 96 Nasal Cannula 2.00 02/16/17 20:00 98.4 83 19 172/81 (111) 95 02/16/17 16:00 88 02/16/17 16:00 99.3 88 15 185/81 (115) 97 02/16/17 14:00 81 02/16/17 12:00 98.9 78 21 147/73 (97) 97 02/16/17 12:00 87 02/16/17 10:00 84 Result Diagram: 02/16/17 1400 02/17/17 0649 Imaging Last Impressions Upper GI/Barium Swallow X-Ray 01/22/17 0000 Signed Impressions: Service Date/Time: Sunday, January 22, 2017 12:29 - CONCLUSION: 1. Findings suspicious for a small leak at the gastroesophageal junction with contrast pooling into an air fluid collection adjacent to the GE junction and distal esophagus. There was an end to side anastomosis performed so it is possible, but felt unlikely, that the collection represents a portion of the proximal stomach. 2. Findings were discussed with Dr. Ritchie. Gonzales Ramsay MD Chest X-Ray 01/22/17 0000 Signed Impressions: Service Date/Time: Sunday, January 22, 2017 12:42 - CONCLUSION: Bilateral pleural effusions. These have worsened compared to previous dated 01/21/17. Jayson Das MD Abdomen CT 01/22/17 0000 Signed Impressions: Service Date/Time: Sunday, January 22, 2017 17:12 - CONCLUSION: 1. There is an abnormal air and fluid collection located to the right of the GE junction adjacent to the proximal stomach. It extends into the posterior mediastinum. The current appearance and findings on fluoroscopy examination earlier today are indicative of a leak at the anastomosis. The current surgical drain is not directly adjacent to the collection and based on the location I do not think that we could place a drain in an appropriate location percutaneously. 2. Small bilateral pleural effusions with associated atelectasis and/or consolidation in both lower lobes. Gonzales Ramsay MD Last Impressions Chest X-Ray 01/21/17 0000 Signed Impressions: Service Date/Time: Saturday, January 21, 2017 11:47 - CONCLUSION: 1. Increasing opacity at the lung bases left greater than right with blunting of the costophrenic angle on the left consistent with an effusion. 2. Apparent nasogastric tube with the tip in the distal esophagus. The side-port appears projected over the mid esophagus. There is a second catheter projected over the mediastinum of unclear significance and needs correlation. This could be further evaluated with CT if indicated. 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 He was staged at a T1a,Nx based on EUS, CT thorax/Abd/pelvis and PET scan. Pt follows with Dr. Nickolas Luna for Oncology. - He was admitted [place] [facility] [place] on [place]/17/17 for Laparoscopic partial gastrectomy and cholecystectomy with Botox injection with Dr. Ritchie. - Post-op pain control per Surgery - Pt is NPO with ANDREW drain in place - He has been requiring increased supplemental O2 - Pt more SOB on 01/21. - Repeat CXR (01/21) --> Increasing opacity at the lung bases left greater than right with blunting of the costophrenic angle on the left consistent with an effusion. Apparent nasogastric tube with the tip in the distal esophagus. The side-port appears projected over the mid esophagus. - He was given Lasix 20mg IV x one dose on 01/21. - Pt still requiring 5-6L via Venti-mask with O2 sats in the low 90's. - Gastrografin esophagram (01/22/17) --> Findings suspicious for a small leak at the gastroesophageal junction with contrast pooling into an air fluid collection adjacent to the GE junction and distal esophagus. There was an end to side anastomosis performed so it is possible, but felt unlikely, that the collection represents a portion of the proximal stomach. - CT Abd/pelvis (01/22/17) --> There is an abnormal air and fluid collection located to the right of the GE junction adjacent to the proximal stomach. It extends into the posterior mediastinum. The current appearance and findings on fluoroscopy examination earlier today are indicative of a leak at the anastomosis. The current surgical drain is not directly adjacent to the collection and based on the location I do not think that we could place a drain in an appropriate location percutaneously. Small bilateral pleural effusions with associated atelectasis and/or consolidation in both lower lobes. - Pathology --> Poorly differentiate adenocarcinoma and signet ring cell carcinoma, tumor extends to the proximal resection margin over a large area. The distal margin of resection is free of tumor. 01/19 -cholecystectomy, proximal gastrectomy with GE junction anastomosis and Botox injection by Dr. Ritchie 01/24 - bilateral chest tubes/open subtotal gastrectomy and jejunostomy placement -Pt developed afib/rvr -Developed respiratory failure and Intubated Reintubated on 02/06. Extubated on 02/11. -TPN stopped 01/30. J-tube feeds advanced to goal. -Right pigtail catheter removed on 02/01, left pigtail catheter removed by surgery 02/02 -CT findings from 02/04 showing extraluminal air in fluid with contrast extending into posterior mediastinum and greenish yellow cloudy purulent drainage from Isidro drain raising concern for anastomotic leak. -CT chest 02/08/17 showed leak at the GE junction. Patient underwent EGD with esophageal stent placement by GI on 02/13. -- Left subclavian CVL placed 02/06. - Right subclavian CVL 01/24-02/06, right upper extremity PICC placed 01/23 ( discontinue 02/01). Discontinued right radial arterial line -right upper ext u/s 02/14...nonocclusive dvt subclavian and basilic -Currently on Zosyn, added vancomycin 01/27..stopped 02/13. Added fluconazole 400mg daily on 01/29 for mae from ANDREW drain. Stopped levaquin 02/01 All blood cultures negative so far. Wound culture with mae. Lipscomb cultures sent on 01/31, 06/12 blood culture with Staph Warneri ? contaminant. ID Dr. Pate -Cont tube feeding at 60ml/hr -lovenox bid started on 02/14 for dvt . convert to po eliquis or xarelto on d/c for at least 3-6m then per his hem/onc -consulted PT -on iv lasix for volume overload. improving. replace kcl. stop iv lasix -cont levemir/ssi -dvt prophylaxis. -added nebs/mucomyst for increasing chest congestion. improved today. stop mucomyst - (2) HTN (hypertension) ICD Codes: I10 - Essential (primary) hypertension Status: Chronic Plan: - HTN which is well controlled on Losartan 50mg po BID, Norvasc 5mg po BID and HCTZ 25mg po daily as an outpt - BP is significantly elevated today and IV Vasotec is not doing much to improve the BP - We will transfer the pt to 4N where he can receive IV Hydralazine - Monitor BP closely (3) Hyperlipidemia ICD Codes: E78.5 - Hyperlipidemia, unspecified Status: Chronic Plan: - Hold home meds until tolerating oral intake (4) GERD (gastroesophageal reflux disease) ICD Codes: K21.9 - Gastro-esophageal reflux disease without esophagitis Status: Chronic Plan: - PPI Al Jenkins MD Feb 17, 2017 09:52
[2017-02-17] MEDS ORDERED: POTASSIUM CHLORIDE 20 MEQ CONTROLLED RELEASE TAB PO ONE (10:00)
[2017-02-17] MEDS ORDERED: PETROLEUM/SHARK LIVER OIL/PHENYLEPHRINE 60 GM TUBE TOPICAL PRN (10:00)
[2017-02-17] MEDS: LISINOPRIL 10 MG TAB PO SCH ×2 (10:08→20:59)
[2017-02-17] MEDS: guaiFENesin E.R. 600 MG TAB PO SCH ×2 (10:08→21:00)
[2017-02-17] MEDS: INSULIN DETEMIR 100 UNITS/ML VIAL SQ SCH ×2 (10:14→21:04)
--- NOTE | 2017-02-17 10:24 | HHI.PR ---
Subjective Subjective Notes feels better, no complaints, bowels working, stool more formed Objective Vitals/I&O Vital Signs Date Time Temp Pulse Resp B/P (MAP) Pulse Ox O2 Delivery O2 Flow Rate FiO2 02/17/17 08:00 97.8 103 20 147/74 (98) 96 02/16/17 20:30 Nasal Cannula 2.00 02/15/17 08:00 96 Labs Laboratory Tests Test 02/16/17 14:00 02/17/17 06:49 White Blood Count 10.1 Red Blood Count 3.47 Hemoglobin 10.7 Hematocrit 32.4 Mean Corpuscular Volume 93.3 Mean Corpuscular Hemoglobin 30.9 Mean Corpuscular Hemoglobin Concent 33.1 Red Cell Distribution Width 13.9 Platelet Count 248 Mean Platelet Volume 7.9 Neutrophils (%) (Auto) 72.3 Lymphocytes (%) (Auto) 16.1 Monocytes (%) (Auto) 10.2 Eosinophils (%) (Auto) 0.8 Basophils (%) (Auto) 0.6 Neutrophils # (Auto) 7.3 Lymphocytes # (Auto) 1.6 Monocytes # (Auto) 1.0 Eosinophils # (Auto) 0.1 Basophils # (Auto) 0.1 CBC Comment AUTO DIFF Differential Comment AUTO DIFF CONFIRMED Platelet Estimate NORMAL Platelet Morphology Comment NORMAL Blood Urea Nitrogen 9 9 Creatinine 0.63 0.49 Random Glucose 117 142 Calcium Level 8.2 7.9 Sodium Level 138 138 Potassium Level 3.9 3.3 Chloride Level 106 104 Carbon Dioxide Level 26.9 27.0 Anion Gap 5 7 Estimat Glomerular Filtration Rate 128 171 Prealbumin 18 Date/Time Source Procedure Growth Status 02/07/17 05:00 Blood Peripheral Aerobic Blood Culture - Final NO GROWTH IN 5 DAYS Complete 02/07/17 05:00 Blood Peripheral Anaerobic Blood Culture - Final NO GROWTH IN 5 DAYS Complete 02/06/17 09:30 Sputum Endotracheal Gram Stain - Final Complete 02/06/17 09:30 Sputum Endotracheal Sputum Culture - Final Complete 01/27/17 08:00 Urine Catheterized Urine Urine Culture - Final NO GROWTH IN 48 HOURS. Complete 02/04/17 17:00 Wound Abdomen Gram Stain - Final Complete 02/04/17 17:00 Wound Culture - Final Saida Albicans Complete Radiology Last Impressions Chest X-Ray 01/27/17 0600 Signed Impressions: Service Date/Time: Friday, January 27, 2017 04:22 - CONCLUSION: 1. Support apparatus in satisfactory position. Mild basilar airspace disease. No pneumothorax. Trace pleural fluid remains on the left. Jordan Lozano MD Lower Extremity Ultrasound 01/27/17 0000 Signed Impressions: Service Date/Time: Friday, January 27, 2017 12:49 - CONCLUSION: No DVT in either lower extremity. Elijah Funes MD Chest Ultrasound 01/24/17 0000 Signed Impressions: Service Date/Time: Tuesday, January 24, 2017 11:13 - CONCLUSION: 1. Large left pleural effusion. Jayson Das MD Chest CT 01/23/17 0000 Signed Impressions: Service Date/Time: Monday, January 23, 2017 18:54 - CONCLUSION: 1. Moderate-sized bilateral pleural effusions. Right pleural effusion has several small areas of loculation as above. 2. Bilateral lower lobe consolidation. 3. Somewhat mass like fullness in the right infrahilar region. A contrast- enhanced CT of the chest is recommended, preferably after resolution of pleural effusions and bibasilar consolidation. Gonzales Pierre MD Upper GI/Barium Swallow X-Ray 01/22/17 0000 Signed Impressions: Service Date/Time: Sunday, January 22, 2017 12:29 - CONCLUSION: 1. Findings suspicious for a small leak at the gastroesophageal junction with contrast pooling into an air fluid collection adjacent to the GE junction and distal esophagus. There was an end to side anastomosis performed so it is possible, but felt unlikely, that the collection represents a portion of the proximal stomach. 2. Findings were discussed with Dr. Ritchie. Gonzales Ramsay MD Abdomen CT 01/22/17 0000 Signed Impressions: Service Date/Time: Sunday, January 22, 2017 17:12 - CONCLUSION: 1. There is an abnormal air and fluid collection located to the right of the GE junction adjacent to the proximal stomach. It extends into the posterior mediastinum. The current appearance and findings on fluoroscopy examination earlier today are indicative of a leak at the anastomosis. The current surgical drain is not directly adjacent to the collection and based on the location I do not think that we could place a drain in an appropriate location percutaneously. 2. Small bilateral pleural effusions with associated atelectasis and/or consolidation in both lower lobes. Gonzales Ramsay MD Abdomen: Non-distended, Non-tender, BS normal Narrative Exam abdomen is soft, drains draining cloudy fluid G tube intact, no redness A/P Problem List: (1) Primary adenocarcinoma of distal third of esophagus ICD Codes: C15.5 - Malignant neoplasm of lower third of esophagus Status: Acute (2) Atrial fibrillation with RVR ICD Codes: I48.91 - Unspecified atrial fibrillation Status: Acute (3) Acute hypoxemic respiratory failure ICD Codes: J96.01 - Acute respiratory failure with hypoxia Status: Acute (4) Gastric adenocarcinoma ICD Codes: C16.9 - Malignant neoplasm of stomach, unspecified Status: Acute Assessment and Plan s/p gastrectomy continue supportive care, tube feeding, drains sips of water Adam Canales MD Feb 17, 2017 10:24
[2017-02-17] MEDS: FLUCONAZOLE 400 MG PREMIX BAG 200 ML IV SCH (12:05)
[2017-02-17] MEDS: SODIUM CHLORIDE 0.9% FLUSH 10 ML FLUSH IV FLUSH SCH ×2 (12:07→21:00)
[2017-02-17] MEDS: PANTOPRAZOLE SODIUM 40 MG VIAL IV SCH (17:47)
[2017-02-17] MEDS: ALPRAZolam 0.25 MG TAB PO PRN (21:00)
[2017-02-18] VITALS (10 sets, daily range): BP systolic 156–187; BP diastolic 83–95; PULSE 87–98; RESP 19–21; TEMP 97.6–99.3; O2SAT 94–98
[2017-02-18] MEDS: PIPERACIL-TAZO 4.5 GM PREMIX 100 ML IV SCH ×4 (03:58→21:03)
[2017-02-18] MEDS: NYSTATIN SUSP 500,000 U/5 ML CUP SWISH-SWAL SCH ×4 (04:01→23:00)
[2017-02-18] MEDS: METOPROLOL TARTRATE 25 MG TAB PO SCH (05:04)
[2017-02-18] MEDS: ENOXAPARIN SODIUM 30 MG/0.3 ML SYRINGE SQ SCH ×2 (05:04→17:02)
[2017-02-18] MEDS: INSULIN ASPART SUPPLEMENTAL SCALE SQ SCH ×3 (05:04→18:00)
[2017-02-18] MEDS: RESP: ALBUTEROL 2.5 MG/IPRATROPIUM 0.5 MG NEB (SCH) NEB ×4 (08:19→20:19)
--- NOTE | 2017-02-18 08:50 | HHI.PR ---
Subjective Remarks no complaints Objective Vitals heart reg lung cta abd s/nt/.jtube ext no edema Vital Signs Date Time Temp Pulse Resp B/P (MAP) Pulse Ox O2 Delivery O2 Flow Rate FiO2 02/18/17 08:21 95 02/18/17 04:00 98.1 98 21 158/95 (116) 94 02/18/17 04:00 Room Air 02/18/17 04:00 Room Air 02/18/17 03:40 91 02/18/17 01:18 170/90 (116) 02/18/17 00:00 99.3 94 19 186/86 (119) 94 02/17/17 20:21 93 21 02/17/17 20:00 Room Air 02/17/17 20:00 97.8 81 19 150/83 (105) 94 02/17/17 16:00 98.0 91 20 152/72 (98) 95 02/17/17 12:00 97.7 88 20 165/81 (109) 94 02/17/17 11:45 20 Result Diagram: 02/16/17 1400 02/17/17 0649 Imaging Last Impressions Upper GI/Barium Swallow X-Ray 01/22/17 0000 Signed Impressions: Service Date/Time: Sunday, January 22, 2017 12:29 - CONCLUSION: 1. Findings suspicious for a small leak at the gastroesophageal junction with contrast pooling into an air fluid collection adjacent to the GE junction and distal esophagus. There was an end to side anastomosis performed so it is possible, but felt unlikely, that the collection represents a portion of the proximal stomach. 2. Findings were discussed with Dr. Ritchie. Gonzales Ramsay MD Chest X-Ray 01/22/17 0000 Signed Impressions: Service Date/Time: Sunday, January 22, 2017 12:42 - CONCLUSION: Bilateral pleural effusions. These have worsened compared to previous dated 01/21/17. Jayson Das MD Abdomen CT 01/22/17 0000 Signed Impressions: Service Date/Time: Sunday, January 22, 2017 17:12 - CONCLUSION: 1. There is an abnormal air and fluid collection located to the right of the GE junction adjacent to the proximal stomach. It extends into the posterior mediastinum. The current appearance and findings on fluoroscopy examination earlier today are indicative of a leak at the anastomosis. The current surgical drain is not directly adjacent to the collection and based on the location I do not think that we could place a drain in an appropriate location percutaneously. 2. Small bilateral pleural effusions with associated atelectasis and/or consolidation in both lower lobes. Gonzales Ramsay MD Last Impressions Chest X-Ray 01/21/17 0000 Signed Impressions: Service Date/Time: Saturday, January 21, 2017 11:47 - CONCLUSION: 1. Increasing opacity at the lung bases left greater than right with blunting of the costophrenic angle on the left consistent with an effusion. 2. Apparent nasogastric tube with the tip in the distal esophagus. The side-port appears projected over the mid esophagus. There is a second catheter projected over the mediastinum of unclear significance and needs correlation. This could be further evaluated with CT if indicated. 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 He was staged at a T1a,Nx based on EUS, CT thorax/Abd/pelvis and PET scan. Pt follows with Dr. Nickolas Luna for Oncology. - [place] [facility] [place] for Laparoscopic partial gastrectomy and cholecystectomy with Botox injection with Dr. Ritchie. - Post-op pain control per Surgery - Pt is NPO with ANDREW drain in place - He has been requiring increased supplemental O2 - Pt more SOB on 01/21. - Repeat CXR (01/21) --> Increasing opacity at the lung bases left greater than right with blunting of the costophrenic angle on the left consistent with an effusion. Apparent nasogastric tube with the tip in the distal esophagus. The side-port appears projected over the mid esophagus. - He was given Lasix 20mg IV x one dose on 01/21. - Pt still requiring 5-6L via Venti-mask with O2 sats in the low 90's. - Gastrografin esophagram (01/22/17) --> Findings suspicious for a small leak at the gastroesophageal junction with contrast pooling into an air fluid collection adjacent to the GE junction and distal esophagus. There was an end to side anastomosis performed so it is possible, but felt unlikely, that the collection represents a portion of the proximal stomach. - CT Abd/pelvis (01/22/17) --> There is an abnormal air and fluid collection located to the right of the GE junction adjacent to the proximal stomach. It extends into the posterior mediastinum. The current appearance and findings on fluoroscopy examination earlier today are indicative of a leak at the anastomosis. The current surgical drain is not directly adjacent to the collection and based on the location I do not think that we could place a drain in an appropriate location percutaneously. Small bilateral pleural effusions with associated atelectasis and/or consolidation in both lower lobes. - Pathology --> Poorly differentiate adenocarcinoma and signet ring cell carcinoma, tumor extends to the proximal resection margin over a large area. The distal margin of resection is free of tumor. 01/19 -cholecystectomy, proximal gastrectomy with GE junction anastomosis and Botox injection by Dr. Ritchie 01/24 - bilateral chest tubes/open subtotal gastrectomy and jejunostomy placement -Pt developed afib/rvr -Developed respiratory failure and Intubated Reintubated on 02/06. Extubated on 02/11. -TPN stopped 01/30. J-tube feeds advanced to goal. -Right pigtail catheter removed on 02/01, left pigtail catheter removed by surgery 02/02 -CT findings from 02/04 showing extraluminal air in fluid with contrast extending into posterior mediastinum and greenish yellow cloudy purulent drainage from Isidro drain raising concern for anastomotic leak. -CT chest 02/08/17 showed leak at the GE junction. Patient underwent EGD with esophageal stent placement by GI on 02/13. -- Left subclavian CVL placed 02/06. - Right subclavian CVL 01/24-02/06, right upper extremity PICC placed 01/23 ( discontinue 02/01). Discontinued right radial arterial line -right upper ext u/s 02/14...nonocclusive dvt subclavian and basilic -Currently on Zosyn, added vancomycin 01/27..stopped 02/13. Added fluconazole 400mg daily on 01/29 for mae from ANDREW drain. Stopped levaquin 02/01 All blood cultures negative so far. Wound culture with mae. Lipscomb cultures sent on 01/31, 1/2 blood culture with Staph Warneri ? contaminant. ID Dr. Pate -Cont tube feeding at 60ml/hr -lovenox bid started on 02/14 for dvt . convert to po eliquis or xarelto on d/c for at least 3-6m then per his hem/onc -consulted PT -on iv lasix for volume overload. improving. replace kcl. stopped iv lasix -cont levemir/ssi -dvt prophylaxis. -added nebs/mucomyst for increasing chest congestion. improve . stop mucomyst -adjust bp meds today. on lisinipril/metoprolol. prn clonidine. - - (2) HTN (hypertension) ICD Codes: I10 - Essential (primary) hypertension Status: Chronic Plan: - HTN which is well controlled on Losartan 50mg po BID, Norvasc 5mg po BID and HCTZ 25mg po daily as an outpt - BP is significantly elevated today and IV Vasotec is not doing much to improve the BP - We will transfer the pt to where he can receive IV Hydralazine - Monitor BP closely (3) Hyperlipidemia ICD Codes: E78.5 - Hyperlipidemia, unspecified Status: Chronic Plan: - Hold home meds until tolerating oral intake (4) GERD (gastroesophageal reflux disease) ICD Codes: K21.9 - Gastro-esophageal reflux disease without esophagitis Status: Chronic Plan: - PPI Al Jenkins MD Feb 18, 2017 08:50
[2017-02-18] MEDS: guaiFENesin E.R. 600 MG TAB PO SCH ×2 (09:38→21:03)
[2017-02-18] MEDS: LISINOPRIL 20 MG TAB PO SCH ×2 (09:39→21:03)
[2017-02-18] MEDS: SODIUM CHLORIDE 0.9% FLUSH 10 ML FLUSH IV FLUSH SCH ×2 (09:39→21:04)
[2017-02-18] MEDS: POTASSIUM CHLORIDE 20 MEQ CONTROLLED RELEASE TAB PO SCH (09:39)
[2017-02-18] MEDS: FLUCONAZOLE 400 MG PREMIX BAG 200 ML IV SCH (09:40)
[2017-02-18] MEDS: INSULIN DETEMIR 100 UNITS/ML VIAL SQ SCH ×2 (09:54→21:06)
[2017-02-18 10:24] LABS: BICARBONATE 25.3 MEQ/L (21.0-32.0); MAGNESIUM 2.3 MG/DL (1.5-2.5); POTASSIUM 3.7 MEQ/L (3.5-5.1)
--- NOTE | 2017-02-18 12:09 | HHI.PR ---
Subjective Subjective Notes DAILY PROGRESS NOTE FOR SURGICAL ATTENDING, DR. JORDAN COLMENARES Tolerating more by mouth Would like to try something with artificial sweetener and it Objective Vitals/I&O Vital Signs Date Time Temp Pulse Resp B/P (MAP) Pulse Ox O2 Delivery O2 Flow Rate FiO2 02/18/17 08:21 95 02/18/17 08:00 98.3 87 20 187/87 (120) 02/18/17 04:00 Room Air 02/17/17 20:21 21 02/17/17 08:05 2.00 Labs Laboratory Tests Test 01/23/17 16:53 01/24/17 14:30 01/28/17 04:15 01/31/17 10:55 Prothrombin Time 10.8 SEC Prothromb Time International Ratio 1.0 RATIO Nasal Screen MRSA (PCR) MRSA NOT DETECTED Digoxin Level 0.9 NG/ML Urine Color YELLOW Urine Turbidity CLEAR Urine pH 7.5 Urine Specific [employer] 1.040 Urine Protein 30 mg/dL Urine Glucose (UA) NEG mg/dL Urine Ketones NEG mg/dL Urine Occult Blood NEG Urine Nitrite NEG Urine Bilirubin NEG Urine Urobilinogen LESS THAN 2.0 MG/DL Urine Leukocyte Esterase NEG Urine RBC 1 /hpf Urine WBC 1 /hpf Microscopic Urinalysis Comment CATH-CULT NOT IND Test 02/02/17 04:12 02/04/17 09:30 02/04/17 14:10 02/05/17 20:17 Differential Total Cells Counted 100 Neutrophils % (Manual) 57 % Band Neutrophils % 20 % Lymphocytes % 7 % Monocytes % 8 % Eosinophils % 6 % Neutrophils # (Manual) 7.1 TH/MM3 Metamyelocytes 1 % Myelocytes 1 % Toxic Granulation 1+ Dohle Bodies PRESENT Protein Corrected Calcium 7.5 MG/DL C-Reactive Protein 10.00 MG/DL Stool C. difficile Toxin (PCR) NEGATIVE Stl C. difficile Toxin Epiderm 027 PRESUMPTIVE NEGATIVE Blood Gas Liter Flow 15 L/M Test 02/06/17 08:45 02/06/17 20:00 02/07/17 10:40 02/14/17 05:40 Lactic Acid Level 1.1 mmol/L Blood Gas Puncture Site RT RADIAL Blood Gas Patient Temperature 98.6 Blood Gas HCO3 29 mmol/L Blood Gas Base Excess 5.6 mmol/L Blood Gas Oxygen Saturation 94 % Arterial Blood pH 7.49 Arterial Blood Partial Pressure CO2 39 mmHg Arterial Blood Partial Pressure O2 75 mmHg Arterial Blood Oxygen Content 16.9 Vol % Arterial Blood Carboxyhemoglobin 1.0 % Arterial Blood Methemoglobin 1.0 % Blood Gas Hemoglobin 12.8 G/DL Oxygen Delivery Device VENTILATOR Blood Gas Ventilator Setting PRVC/AC Blood Gas Inspired Oxygen 50 % Vancomycin Level Trough 18.4 MCG/ML Blood Urea Nitrogen 13 MG/DL Creatinine 0.58 MG/DL Random Glucose 127 MG/DL Total Protein 7.0 GM/DL Albumin 2.0 GM/DL Calcium Level 7.9 MG/DL Phosphorus Level 2.4 MG/DL Magnesium Level 2.4 MG/DL Alkaline Phosphatase 131 U/L Aspartate Amino Transf (AST/SGOT) 23 U/L Alanine Aminotransferase (ALT/SGPT) 25 U/L Total Bilirubin 0.3 MG/DL Sodium Level 144 MEQ/L Potassium Level 3.6 MEQ/L Chloride Level 109 MEQ/L Carbon Dioxide Level 30.4 MEQ/L Test 02/16/17 14:00 02/18/17 08:44 White Blood Count 10.1 TH/MM3 Red Blood Count 3.47 MIL/MM3 Hemoglobin 10.7 GM/DL Hematocrit 32.4 % Mean Corpuscular Volume 93.3 FL Mean Corpuscular Hemoglobin 30.9 PG Mean Corpuscular Hemoglobin Concent 33.1 % Red Cell Distribution Width 13.9 % Platelet Count 248 TH/MM3 Mean Platelet Volume 7.9 FL Neutrophils (%) (Auto) 72.3 % Lymphocytes (%) (Auto) 16.1 % Monocytes (%) (Auto) 10.2 % Eosinophils (%) (Auto) 0.8 % Basophils (%) (Auto) 0.6 % Neutrophils # (Auto) 7.3 TH/MM3 Lymphocytes # (Auto) 1.6 TH/MM3 Monocytes # (Auto) 1.0 TH/MM3 Eosinophils # (Auto) 0.1 TH/MM3 Basophils # (Auto) 0.1 TH/MM3 CBC Comment AUTO DIFF Differential Comment AUTO DIFF CONFIRMED Platelet Estimate NORMAL Platelet Morphology Comment NORMAL Prealbumin 18 MG/DL Blood Urea Nitrogen 9 MG/DL Creatinine 0.58 MG/DL Random Glucose 121 MG/DL Calcium Level 9.0 MG/DL Magnesium Level 2.3 MG/DL Sodium Level 138 MEQ/L Potassium Level 3.7 MEQ/L Chloride Level 106 MEQ/L Carbon Dioxide Level 25.3 MEQ/L Anion Gap 7 MEQ/L Estimat Glomerular Filtration Rate 141 ML/MIN Radiology Last Impressions Upper Extremity Ultrasound 02/14/17 0000 Signed Impressions: Service Date/Time: Tuesday, February 14, 2017 10:06 - CONCLUSION: Incompletely occlusive DVT in the RIGHT subclavian vein. There is also incompletely occlusive clot in the basilic vein Gonzales Kilgore MD GI Procedure 02/13/17 0000 Signed Impressions: Service Date/Time: Monday, February 13, 2017 13:31 - CONCLUSION: 1. Postsurgical changes as above. Bradley Jacobsen MD Chest X-Ray 02/09/17 0000 Signed Impressions: Service Date/Time: Thursday, February 09, 2017 10:08 - CONCLUSION: Interval improvement with persistent consolidative changes left base. Rivas Das MD FACR Chest CT 02/08/17 0000 Signed Impressions: Service Date/Time: January 15:50 - CONCLUSION: 1. Leak involving the GE junction as detailed in the above discussion. 2. Slight decrease in size of the small bilateral pleural effusions. 3. Unchanged bibasilar infiltrates. Chalino Olmedo Jr., MD Abdomen/Pelvis CT 02/04/17 0000 Signed Impressions: Service Date/Time: Saturday, February 04, 2017 23:18 - CONCLUSION: 1. No abscess is visualized, as questioned. However, there continues to be a small amount of fluid and air that appears extraluminal and located adjacent to the proximal stomach and extending into the posterior mediastinum adjacent to the distal esophagus. The right subhepatic drain is located near a portion of the fluid collection. There is also trace free fluid in the pelvis. 2. Anasarca. 3. Please refer to chest CT report for description of the supradiaphragmatic findings. Gonzales Ramsay MD Lower Extremity Ultrasound 01/27/17 0000 Signed Impressions: Service Date/Time: Friday, January 27, 2017 12:49 - CONCLUSION: No DVT in either lower extremity. Elijah Funes MD Chest Ultrasound 01/24/17 0000 Signed Impressions: Service Date/Time: Tuesday, January 24, 2017 11:13 - CONCLUSION: 1. Large left pleural effusion. Jayson Das MD Upper GI/Barium Swallow X-Ray 01/22/17 0000 Signed Impressions: Service Date/Time: Sunday, January 22, 2017 12:29 - CONCLUSION: 1. Findings suspicious for a small leak at the gastroesophageal junction with contrast pooling into an air fluid collection adjacent to the GE junction and distal esophagus. There was an end to side anastomosis performed so it is possible, but felt unlikely, that the collection represents a portion of the proximal stomach. 2. Findings were discussed with Dr. Ritchie. Gonzales Ramsay MD Abdomen CT 01/22/17 0000 Signed Impressions: Service Date/Time: Sunday, January 22, 2017 17:12 - CONCLUSION: 1. There is an abnormal air and fluid collection located to the right of the GE junction adjacent to the proximal stomach. It extends into the posterior mediastinum. The current appearance and findings on fluoroscopy examination earlier today are indicative of a leak at the anastomosis. The current surgical drain is not directly adjacent to the collection and based on the location I do not think that we could place a drain in an appropriate location percutaneously. 2. Small bilateral pleural effusions with associated atelectasis and/or consolidation in both lower lobes. Gonzales Ramsay MD Cardiovascular: Regular Abdomen: Other (tubes in place wound healed) A/P Problem List: (1) Primary adenocarcinoma of distal third of esophagus ICD Codes: C15.5 - Malignant neoplasm of lower third of esophagus Status: Acute (2) Atrial fibrillation with RVR ICD Codes: I48.91 - Unspecified atrial fibrillation Status: Acute (3) Acute hypoxemic respiratory failure ICD Codes: J96.01 - Acute respiratory failure with hypoxia Status: Acute (4) Gastric adenocarcinoma ICD Codes: C16.9 - Malignant neoplasm of stomach, unspecified Status: Acute (5) DVT (deep venous thrombosis) ICD Codes: I82.409 - Acute embolism and thrombosis of unspecified deep veins of unspecified lower extremity (6) S/P gastrectomy ICD Codes: Z90.3 - Acquired absence of stomach [part of] Assessment and Plan 66 year old male s/p laparoscopic gastrectomy and cholecystectomy with Botox injection; s/p bilateral thoracostomy tube placement; open subtotal gastrectomy ; jejunostomy tube placement -s/p esophagus stent placement -Tolerating TF at goal -Okay for Ice and sips of water -IVF -US shows DVT--- Lovenox BID -PT Attending Statement NOTE FOR SURGICAL ATTENDING, DR. JORDAN COLMENARES I attest that I had a isrs-la-havy encounter with the patient on the same day, and personally performed and documented my assessment and findings in the medical record. The following services were provided during this hospital visit: Chart data review, vital sign assessments/reviewing monitor data Review of consultations notes if present. Medication orders/review and/or management Ordering and/or reviewing lab tests Ordering and/or interpreting/reviewing x-rays and/or diagnostic studies Care of the patient and discussion of the patient with the care team Documentation time To help prompt me to consider important information that might be impacting today's encounter and assessment, information from prior notes written by myself or my colleagues may have been "brought forward/copy and pasted" into today's note. Jordan Colmenaers MD Feb 18, 2017 12:09
[2017-02-18] MEDS: PANTOPRAZOLE SODIUM 40 MG VIAL IV SCH (17:02)
[2017-02-18] MEDS: METOPROLOL TARTRATE 50 MG TAB PO SCH (21:03)
[2017-02-18] MEDS: ZOLPIDEM TARTRATE 10 MG TAB PO PRN (21:03)
[2017-02-19] VITALS (7 sets, daily range): BP systolic 138–178; BP diastolic 59–98; PULSE 20–105; RESP 18–20; TEMP 97.8–99.2; O2SAT 94–95
[2017-02-19] MEDS: cloNIDine HCL 0.1 MG TAB PO PRN ×2 (00:06→06:12)
[2017-02-19] MEDS: PIPERACIL-TAZO 4.5 GM PREMIX 100 ML IV SCH (04:52)
[2017-02-19] MEDS: NYSTATIN SUSP 500,000 U/5 ML CUP SWISH-SWAL SCH ×4 (05:24→22:07)
[2017-02-19] MEDS: ENOXAPARIN SODIUM 30 MG/0.3 ML SYRINGE SQ SCH ×2 (05:25→17:30)
[2017-02-19] MEDS: INSULIN ASPART SUPPLEMENTAL SCALE SQ SCH ×4 (05:33→16:35)
[2017-02-19] MEDS: RESP: ALBUTEROL 2.5 MG/IPRATROPIUM 0.5 MG NEB (SCH) NEB ×4 (07:36→19:30)
[2017-02-19] MEDS: guaiFENesin E.R. 600 MG TAB PO SCH ×2 (09:40→21:00)
[2017-02-19] MEDS: SODIUM CHLORIDE 0.9% FLUSH 10 ML FLUSH IV FLUSH SCH ×2 (09:40→21:00)
[2017-02-19] MEDS: POTASSIUM CHLORIDE 20 MEQ CONTROLLED RELEASE TAB PO SCH (09:59)
[2017-02-19] MEDS: LISINOPRIL 20 MG TAB PO SCH ×2 (09:59→21:00)
[2017-02-19] MEDS: METOPROLOL TARTRATE 50 MG TAB PO SCH ×2 (09:59→21:00)
[2017-02-19] MEDS: INSULIN DETEMIR 100 UNITS/ML VIAL SQ SCH ×2 (10:04→21:00)
--- NOTE | 2017-02-19 10:44 | HHI.PR ---
Subjective Remarks No new complaints. Objective Vitals Vital Signs Date Time Temp Pulse Resp B/P (MAP) Pulse Ox O2 Delivery O2 Flow Rate FiO2 02/19/17 08:00 98.8 20 20 150/73 (98) 94 02/19/17 04:00 99.2 94 20 172/84 (113) 94 02/19/17 04:00 Room Air 02/19/17 00:00 98.6 93 20 178/84 (115) 95 02/19/17 00:00 Room Air 02/18/17 20:20 96 21 02/18/17 20:14 97.8 98 20 172/87 (115) 98 02/18/17 20:00 Room Air 02/18/17 16:00 97.6 91 20 169/86 (113) 94 02/18/17 12:00 98.0 96 20 156/83 (107) 96 Result Diagram: 02/16/17 1400 02/18/17 0844 Imaging Last Impressions Upper GI/Barium Swallow X-Ray 01/22/17 0000 Signed Impressions: Service Date/Time: Sunday, January 22, 2017 12:29 - CONCLUSION: 1. Findings suspicious for a small leak at the gastroesophageal junction with contrast pooling into an air fluid collection adjacent to the GE junction and distal esophagus. There was an end to side anastomosis performed so it is possible, but felt unlikely, that the collection represents a portion of the proximal stomach. 2. Findings were discussed with Dr. Ritchie. Gonzales Ramsay MD Chest X-Ray 01/22/17 0000 Signed Impressions: Service Date/Time: Sunday, January 22, 2017 12:42 - CONCLUSION: Bilateral pleural effusions. These have worsened compared to previous dated 01/21/17. Jayson Das MD Abdomen CT 01/22/17 0000 Signed Impressions: Service Date/Time: Sunday, January 22, 2017 17:12 - CONCLUSION: 1. There is an abnormal air and fluid collection located to the right of the GE junction adjacent to the proximal stomach. It extends into the posterior mediastinum. The current appearance and findings on fluoroscopy examination earlier today are indicative of a leak at the anastomosis. The current surgical drain is not directly adjacent to the collection and based on the location I do not think that we could place a drain in an appropriate location percutaneously. 2. Small bilateral pleural effusions with associated atelectasis and/or consolidation in both lower lobes. Gonzales Ramsay MD Last Impressions Chest X-Ray 01/21/17 0000 Signed Impressions: Service Date/Time: Saturday, January 21, 2017 11:47 - CONCLUSION: 1. Increasing opacity at the lung bases left greater than right with blunting of the costophrenic angle on the left consistent with an effusion. 2. Apparent nasogastric tube with the tip in the distal esophagus. The side-port appears projected over the mid esophagus. There is a second catheter projected over the mediastinum of unclear significance and needs correlation. This could be further evaluated with CT if indicated. 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 He was staged at a T1a,Nx based on EUS, CT thorax/Abd/pelvis and PET scan. Pt follows with Dr. Nickolas Luna for Oncology. - He was admitted to [facility] on 01/17/17 for Laparoscopic partial gastrectomy and cholecystectomy with Botox injection with Dr. Ritchie. - Post-op pain control per Surgery - Pt is NPO with ANDREW drain in place - He has been requiring increased supplemental O2 - Pt more SOB on 01/21. - Repeat CXR (01/21) --> Increasing opacity at the lung bases left greater than right with blunting of the costophrenic angle on the left consistent with an effusion. Apparent nasogastric tube with the tip in the distal esophagus. The side-port appears projected over the mid esophagus. - He was given Lasix 20mg IV x one dose on 01/21. - Pt still requiring 5-6L via Venti-mask with O2 sats in the low 90's. - Gastrografin esophagram (01/22/17) --> Findings suspicious for a small leak at the gastroesophageal junction with contrast pooling into an air fluid collection adjacent to the GE junction and distal esophagus. There was an end to side anastomosis performed so it is possible, but felt unlikely, that the collection represents a portion of the proximal stomach. - CT Abd/pelvis (01/22/17) --> There is an abnormal air and fluid collection located to the right of the GE junction adjacent to the proximal stomach. It extends into the posterior mediastinum. The current appearance and findings on fluoroscopy examination earlier today are indicative of a leak at the anastomosis. The current surgical drain is not directly adjacent to the collection and based on the location I do not think that we could place a drain in an appropriate location percutaneously. Small bilateral pleural effusions with associated atelectasis and/or consolidation in both lower lobes. - Pathology --> Poorly differentiate adenocarcinoma and signet ring cell carcinoma, tumor extends to the proximal resection margin over a large area. The distal margin of resection is free of tumor. 01/19 -cholecystectomy, proximal gastrectomy with GE junction anastomosis and Botox injection by Dr. Ritchie 01/24 - bilateral chest tubes/open subtotal gastrectomy and jejunostomy placement -Pt developed afib/rvr -Developed respiratory failure and Intubated Reintubated on 02/06. Extubated on 02/11. -TPN stopped 01/30. J-tube feeds advanced to goal. -Right pigtail catheter removed on 02/01, left pigtail catheter removed by surgery 02/02 -CT findings from 02/04 showing extraluminal air in fluid with contrast extending into posterior mediastinum and greenish yellow cloudy purulent drainage from Isidro drain raising concern for anastomotic leak. -CT chest 02/08/17 showed leak at the GE junction. Patient underwent EGD with esophageal stent placement by GI on 02/13. -- Left subclavian CVL placed 02/06. - Right subclavian CVL 01/24-02/06, right upper extremity PICC placed 01/23 ( discontinue 02/01). Discontinued right radial arterial line -right upper ext u/s 02/14...nonocclusive dvt subclavian and basilic -Currently on Zosyn, added vancomycin 01/27..stopped 02/13. Added fluconazole 400mg daily on 01/29 for mae from ANDREW drain. Stopped levaquin 02/01 All blood cultures negative so far. Wound culture with mae. Lipscomb cultures sent on 01/31, 06/12 blood culture with Staph Warneri ? contaminant. ID Dr. Pate -Cont tube feeding at 60ml/hr -lovenox bid started on 02/14 for dvt . convert to po eliquis or xarelto on d/c for at least 3-6m then per his hem/onc -consulted PT -on iv lasix for volume overload. improving. replace kcl. stopped iv lasix -cont levemir/ssi -dvt prophylaxis. -added nebs/mucomyst for increasing chest congestion. improve . stop mucomyst -adjust bp meds today. on lisinipril/metoprolol. prn clonidine. - 02/19/17 - stop zosyn and IV diflucan - pt has had NO high grade fever since 02/11/17 - pt able to tolerate PO pills, but all nutrition by TF - Case d/w ID, Dr. Pate - obtain repeat CT C/A/P - if no further anastomosis leak then, - augmentin & diflucan x 2weeks from time of esophageal stent placement - if evidence of continued leak, then augmentin & diflucan x 4weeks - Pt to f/u with ID outpt, Dr. Emilia Varela, 7-10 days after discharge. - repeat labs in AM - anticipate d/c to SNF 02/20/17 (2) HTN (hypertension) ICD Codes: I10 - Essential (primary) hypertension Status: Chronic Plan: - stable - lisinopril, metoprolol - prn catapress (3) Hyperlipidemia ICD Codes: E78.5 - Hyperlipidemia, unspecified Status: Chronic Plan: - Hold home meds until tolerating oral intake (4) GERD (gastroesophageal reflux disease) ICD Codes: K21.9 - Gastro-esophageal reflux disease without esophagitis Status: Chronic Plan: - PPI (5) DM2 (diabetes mellitus, type 2) ICD Codes: E11.9 - Type 2 diabetes mellitus without complications Status: Acute Plan: - obtain HgA1C - continue levemir - continue SSI - may be able to transition to OHA and stop levemir, outpt Problem Qualifiers (1) HTN (hypertension): Qualified Codes: I10 - Essential (primary) hypertension (2) DM2 (diabetes mellitus, type 2): Qualified Codes: E11.8 - Type 2 diabetes mellitus with unspecified complications Patrice Connelly DO Feb 19, 2017 10:44
--- NOTE | 2017-02-19 11:06 | HHI.FF ---
Face to Face Verification Diagnosis: (1) Gastric adenocarcinoma (2) S/P gastrectomy Physical Therapy Order: Evaluate and Treat, Improve ambulation, Strength and gait training Home Health Nursing Order: Medical education Signs/symptoms of disease process Medication education-adverse effect Wound care and dressing changes Nursing assessment with vital signs Instructions: assistance with tube feeding I have seen patient Jayson Acosta Jr Rochelle on 02/19/17. My clinical findings support the need for the requested home health care services because: Ltd mobility - disease progression Deconditioned w/ increased weakness Med compliance is questionable Limited ability to care for self Need for psychosocial assistance I certify that my clinical findings support that this patient is homebound because: Post-op weakness Impaired cognitive ability/safety Unsafe to leave home unassisted Need for psychosocial assistance Unable to use public transportation Patrice Connelly DO Feb 19, 2017 11:06
[2017-02-19] MEDS ORDERED: KANGAROO JOEY P1 MIS (11:14)
[2017-02-19] MEDS: ALPRAZolam 0.25 MG TAB PO PRN (12:39)
[2017-02-19] MEDS: FLUCONAZOLE 100 MG TAB PO SCH (13:36)
[2017-02-19] MEDS: AMOXICILLIN/CLAVULANATE K 875 MG TAB PO SCH ×2 (14:00→21:00)
[2017-02-19] MEDS ORDERED: DIATRIZOATE MEGLUM/DIATRIZOATE SOD 9 ML CUP PO ONE (14:15)
[2017-02-19] MEDS: PANTOPRAZOLE SODIUM 40 MG VIAL IV SCH (17:30)
--- NOTE | 2017-02-19 18:27 | HHI.IDPN ---
Subjective Subjective Remarks ID X cover for Tracy Pate chart was reviewed Mr. 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 On 01/17/17 sp Laparoscopic gastrectomy and cholecystectomy with Botox injection with Dr. Ritchie. He developped anastomotic 3 week s ago and mclinically and radiographically picture cw mediatinitis and was started on abx culture + for Saida albicans, defevresed eventually on fluconazol Antibiotics Zosyn IV Vanco IV Fluconazole IV Lines Line sites with no e.o infection. Past Medical History reviewed. Allergies: Coded Allergies: amlodipine (Unverified Allergy, Severe, MUSCLE PAIN, 01/23/17) atorvastatin (Unverified Allergy, Severe, MUSCLE PAIN, 01/23/17) pravastatin (Unverified Allergy, Severe, MUSCLE PAIN, 01/23/17) simvastatin (Unverified Allergy, Severe, MUSCLE PAIN, 01/23/17) Objective . Vital Signs Date Time Temp Pulse Resp B/P (MAP) Pulse Ox O2 Delivery O2 Flow Rate FiO2 02/19/17 16:00 98.8 90 20 164/98 (120) 95 02/19/17 12:00 97.8 88 20 149/78 (101) 94 02/19/17 08:00 98.8 20 20 150/73 (98) 94 02/19/17 04:00 99.2 94 20 172/84 (113) 94 02/19/17 04:00 Room Air 02/19/17 00:00 98.6 93 20 178/84 (115) 95 02/19/17 00:00 Room Air 02/18/17 20:20 96 21 02/18/17 20:14 97.8 98 20 172/87 (115) 98 02/18/17 20:00 Room Air 02/19/17 02/19/17 02/20/17 15:00 23:00 07:00 Output Total 1400 ml Balance -1400 ml Output Urine Total 1400 ml # Bowel Movements 3 . Laboratory Tests Test 02/18/17 08:44 Blood Urea Nitrogen 9 MG/DL Creatinine 0.58 MG/DL Random Glucose 121 MG/DL Calcium Level 9.0 MG/DL Magnesium Level 2.3 MG/DL Sodium Level 138 MEQ/L Potassium Level 3.7 MEQ/L Chloride Level 106 MEQ/L Carbon Dioxide Level 25.3 MEQ/L Anion Gap 7 MEQ/L Estimat Glomerular Filtration Rate 141 ML/MIN Imaging Last Impressions Upper Extremity Ultrasound 02/14/17 0000 Signed Impressions: Service Date/Time: Tuesday, February 14, 2017 10:06 - CONCLUSION: Incompletely occlusive DVT in the RIGHT subclavian vein. There is also incompletely occlusive clot in the basilic vein Gonzales Kilgore MD GI Procedure 02/13/17 0000 Signed Impressions: Service Date/Time: Monday, February 13, 2017 13:31 - CONCLUSION: 1. Postsurgical changes as above. Bradley Jacobsen MD Chest X-Ray 02/09/17 0000 Signed Impressions: Service Date/Time: Thursday, February 09, 2017 10:08 - CONCLUSION: Interval improvement with persistent consolidative changes left base. Rivas Das MD FACR Chest CT 02/08/17 0000 Signed Impressions: Service Date/Time: January 15:50 - CONCLUSION: 1. Leak involving the GE junction as detailed in the above discussion. 2. Slight decrease in size of the small bilateral pleural effusions. 3. Unchanged bibasilar infiltrates. Chalino Olmedo Jr., MD Abdomen/Pelvis CT 02/04/17 0000 Signed Impressions: Service Date/Time: Saturday, February 04, 2017 23:18 - CONCLUSION: 1. No abscess is visualized, as questioned. However, there continues to be a small amount of fluid and air that appears extraluminal and located adjacent to the proximal stomach and extending into the posterior mediastinum adjacent to the distal esophagus. The right subhepatic drain is located near a portion of the fluid collection. There is also trace free fluid in the pelvis. 2. Anasarca. 3. Please refer to chest CT report for description of the supradiaphragmatic findings. Gonzales Ramsay MD Lower Extremity Ultrasound 01/27/17 0000 Signed Impressions: Service Date/Time: Friday, January 27, 2017 12:49 - CONCLUSION: No DVT in either lower extremity. Elijah Funes MD Chest Ultrasound 01/24/17 0000 Signed Impressions: Service Date/Time: Tuesday, January 24, 2017 11:13 - CONCLUSION: 1. Large left pleural effusion. Jayson Das MD Upper GI/Barium Swallow X-Ray 01/22/17 0000 Signed Impressions: Service Date/Time: Sunday, January 22, 2017 12:29 - CONCLUSION: 1. Findings suspicious for a small leak at the gastroesophageal junction with contrast pooling into an air fluid collection adjacent to the GE junction and distal esophagus. There was an end to side anastomosis performed so it is possible, but felt unlikely, that the collection represents a portion of the proximal stomach. 2. Findings were discussed with Dr. Ritchie. Gonzales Ramsay MD Abdomen CT 01/22/17 0000 Signed Impressions: Service Date/Time: Sunday, January 22, 2017 17:12 - CONCLUSION: 1. There is an abnormal air and fluid collection located to the right of the GE junction adjacent to the proximal stomach. It extends into the posterior mediastinum. The current appearance and findings on fluoroscopy examination earlier today are indicative of a leak at the anastomosis. The current surgical drain is not directly adjacent to the collection and based on the location I do not think that we could place a drain in an appropriate location percutaneously. 2. Small bilateral pleural effusions with associated atelectasis and/or consolidation in both lower lobes. Gonzales Ramsay MD Physical Exam GENERAL: Awake and alert, comfortable, on nasal O2 SKIN: No rashes, ecchymoses or lesions. Cool and dry. CARDIOVASCULAR: Regular rate and rhythm without murmurs, gallops, or rubs. RESPIRATORY: Clear to auscultation. Breath sounds equal bilaterally. GASTROINTESTINAL: not tende not distended MUSCULOSKELETAL: Extremities without clubbing, cyanosis. . NEUROLOGICAL: Awake and alert. Grossly non focal Psych: cooperative Assessment & Plan Remarks Sepsis Adenocarcinoma with signet ring features in the distal esophagus. He was staged at a T1a,Nx based on EUS. January 17, 2017 status post lap cholecystectomy, lap partial gastrectomy with Esophageal gastrointestinal anastomosis and Botox injection in the esophagus. January 24, 2017 bilateral chest tube placement for pleural effusions, open subtotal gastrectomy with gastric conduit formation, GE anastomosis, jejunostomy and feeding tube placement. Intra-abdominal abscess likely secondary to anastomotic leak Acute mediastinitis, possible mediastinal abscess. Due to persistent fevers as well as change in the drain fluid to white quiroz color there is a concern for ongoing fungal infection. Patient temps seem to have defervesced after addition of Diflucan. C.Albicans from wound site ? SSI. Incompletely occlusive DVT in the RIGHT subclavian vein. There is also incompletely occlusive clot in the basilic vein Recommendations pt was switche dto oral abx today (augmentin, fluconazol) CT chest /abd /pel ordered final abx per CT results dw Dr Godwin Pate to resume care starting tomorrow Charmaine Lebron MD Feb 19, 2017 18:27
--- NOTE | 2017-02-19 18:42 | RADRPT ---
EXAM DATE/TIME: 02/19/2017 18:22 [facility] COMPARISON: CT ABDOMEN & PELVIS W CONTRAST, February 04, 2017, 23:18. INDICATIONS : Gastroesophageal leak. ORAL CONTRAST: Prescribed oral contrast ingested. RADIATION DOSE: 16.17 CTDIvol (mGy) ; Combined studies - Thorax/Abdomen/Pelvis MEDICAL HISTORY : Hernia, hiatal. Hypertension. Carcinoma, esophageal. SURGICAL HISTORY : None. ENCOUNTER: Subsequent ACUITY: 1 day PAIN SCALE: 0/10 LOCATION: Bilateral abdomen TECHNIQUE: Volumetric scanning of the abdomen and pelvis was performed. Using automated exposure control and ad justment of the mA and/or kV according to patient size, radiation dose was kept as low as reasonably achievable to obtain optimal diagnostic quality images. DICOM format image data is available electro nically for review and comparison. FINDINGS: A stent of the distal esophagus is now noted. Surgical changes of previous partial gastrectomy again seen. Midline laparotomy allie have been. There is induration in the anterior peritoneal fat again seen. No abscess. No free air or other evidence of leak. Small bilateral pleural effusions persist. 2 mm nonobstructing stone of the right kidney. No acute so lid organ abnormality demonstrated. Jejunostomy tube remains in place. CONCLUSION: 1. Interim placement of distal esophageal stent. No abscess or evidence of leak. 2. Persistent mesenteric edema along the midline laparotomy. Gonzales Pierre MD on February 19, 2017 at 18:34 Board Certified Radiologist. This report was verified electronically.
--- NOTE | 2017-02-19 18:48 | RADRPT ---
EXAM DATE/TIME: 02/19/2017 18:22 [facility] COMPARISON: CT THORAX W/O CONTRAST, February 08, 2017, 15:50. INDICATIONS : Gastroesophageal leak. RADIATION DOSE: 16.17 CTDIvol (mGy) ; Combined studies - Thorax/Abdomen/Pelvis MEDICAL HISTORY : Hypertension. Hernia, hiatal. Carcinoma, esophageal. SURGICAL HISTORY : None. ENCOUNTER: Subsequent ACUITY: 1 day PAIN SCALE: 0/10 LOCATION: Bilateral chest TECHNIQUE: Volumetric scanning of the chest was performed. Using automated exposure control and adjustment of t he mA and/or kV according to patient size, radiation dose was kept as low as reasonably achievable to obtain optimal diagnostic quality images. DICOM format image data is available electronically for r eview and comparison. Follow-up recommendations for detected pulmonary nodules are based at a minimum on nodule size and pa tient risk factors according to Fleischner Society Guidelines. FINDINGS: LUNGS: There is increased density at the posterior lower lungs bilaterally likely related to atelectasis or consolidation. PLEURAE: There are mild bilateral pleural effusions being greater on the right. MEDIASTINUM: There is a stent in the distal esophagus. There is soft tissue density seen in the inferior aspect of the stent. There is some air seen around the stent especially in the right lateral aspect of the fuentes nt in the inferior posterior mediastinum. Compared to the prior CT examination with oral contrast, it appears the air is in a similar location as the barium seen on the prior exam. It was thought that b arium was extraluminal secondary to a distal esophageal tear. The air seen on the current exam within this same area suggest continued distal esophageal leak. Coronary artery calcifications are present. Are mildly prominent lymph nodes in the precarinal, subcarinal and tracheobronchial, and bilateral h ilar regions. AXILLAE: Within normal limits. No lymphadenopathy. MUSCULOSKELETAL: Within normal limits for patient age. MISCELLANEOUS: The visualized upper abdominal organs demonstrate no acute abnormality. There is persistent hazy dens ity/duration in the fat anterior to the liver. This is unchanged. There is a drain in the left upper quadrant. CONCLUSION: 1. Distal esophageal stent with air seen outside this especially adjacent to the distal right-sided e sophagus. This is in a similar location to suspected extravasated contrast seen on the prior CT. This is concerning for ongoing esophageal tear. An abscess is not seen. 2. Mild bilateral pleural effusions with accompanying areas of atelectasis being worse on the right. 3. Mild prominence of the mediastinal and hilar regions. 4. Persistent hazy density/induration in the fat just deep to the anterior abdominal wall in the uppe r abdomen anterior to the left lobe liver. This is likely a postsurgical change. Gonzales Bernstein MD on February 19, 2017 at 18:36 Board Certified Radiologist. This report was verified electronically.
--- NOTE | 2017-02-19 19:46 | HHI.PR ---
Subjective Subjective Notes feels better Objective Vitals/I&O Vital Signs Date Time Temp Pulse Resp B/P (MAP) Pulse Ox O2 Delivery O2 Flow Rate FiO2 02/19/17 19:31 95 02/19/17 16:00 98.8 90 20 164/98 (120) 02/19/17 04:00 Room Air 02/18/17 20:20 21 02/17/17 08:05 2.00 Labs Date/Time Source Procedure Growth Status 02/07/17 05:00 Blood Peripheral Aerobic Blood Culture - Final NO GROWTH IN 5 DAYS Complete 02/07/17 05:00 Blood Peripheral Anaerobic Blood Culture - Final NO GROWTH IN 5 DAYS Complete 02/06/17 09:30 Sputum Endotracheal Gram Stain - Final Complete 02/06/17 09:30 Sputum Endotracheal Sputum Culture - Final Complete 01/27/17 08:00 Urine Catheterized Urine Urine Culture - Final NO GROWTH IN 48 HOURS. Complete 02/04/17 17:00 Wound Abdomen Gram Stain - Final Complete 02/04/17 17:00 Wound Culture - Final Saida Albicans Complete Radiology Last Impressions Upper Extremity Ultrasound 02/14/17 0000 Signed Impressions: Service Date/Time: Tuesday, February 14, 2017 10:06 - CONCLUSION: Incompletely occlusive DVT in the RIGHT subclavian vein. There is also incompletely occlusive clot in the basilic vein Gonzales Kilgore MD GI Procedure 02/13/17 0000 Signed Impressions: Service Date/Time: Monday, February 13, 2017 13:31 - CONCLUSION: 1. Postsurgical changes as above. Bradley Jacobsen MD Chest X-Ray 02/09/17 0000 Signed Impressions: Service Date/Time: Thursday, February 09, 2017 10:08 - CONCLUSION: Interval improvement with persistent consolidative changes left base. Rivas Das MD FACR Chest CT 02/08/17 0000 Signed Impressions: Service Date/Time: January 15:50 - CONCLUSION: 1. Leak involving the GE junction as detailed in the above discussion. 2. Slight decrease in size of the small bilateral pleural effusions. 3. Unchanged bibasilar infiltrates. Chalino Olmedo Jr., MD Abdomen/Pelvis CT 02/04/17 0000 Signed Impressions: Service Date/Time: Saturday, February 04, 2017 23:18 - CONCLUSION: 1. No abscess is visualized, as questioned. However, there continues to be a small amount of fluid and air that appears extraluminal and located adjacent to the proximal stomach and extending into the posterior mediastinum adjacent to the distal esophagus. The right subhepatic drain is located near a portion of the fluid collection. There is also trace free fluid in the pelvis. 2. Anasarca. 3. Please refer to chest CT report for description of the supradiaphragmatic findings. Gonzales Ramsay MD Lower Extremity Ultrasound 01/27/17 0000 Signed Impressions: Service Date/Time: Friday, January 27, 2017 12:49 - CONCLUSION: No DVT in either lower extremity. Elijah Funes MD Chest Ultrasound 01/24/17 0000 Signed Impressions: Service Date/Time: Tuesday, January 24, 2017 11:13 - CONCLUSION: 1. Large left pleural effusion. Jasyon Das MD Upper GI/Barium Swallow X-Ray 01/22/17 0000 Signed Impressions: Service Date/Time: Sunday, January 22, 2017 12:29 - CONCLUSION: 1. Findings suspicious for a small leak at the gastroesophageal junction with contrast pooling into an air fluid collection adjacent to the GE junction and distal esophagus. There was an end to side anastomosis performed so it is possible, but felt unlikely, that the collection represents a portion of the proximal stomach. 2. Findings were discussed with Dr. Ritchie. Gonzales Ramsay MD Abdomen CT 01/22/17 0000 Signed Impressions: Service Date/Time: Sunday, January 22, 2017 17:12 - CONCLUSION: 1. There is an abnormal air and fluid collection located to the right of the GE junction adjacent to the proximal stomach. It extends into the posterior mediastinum. The current appearance and findings on fluoroscopy examination earlier today are indicative of a leak at the anastomosis. The current surgical drain is not directly adjacent to the collection and based on the location I do not think that we could place a drain in an appropriate location percutaneously. 2. Small bilateral pleural effusions with associated atelectasis and/or consolidation in both lower lobes. Gonzales Ramsay MD Cardiovascular: Regular Lungs: Clear Abdomen: Non-distended, Non-tender Extremities: No edema A/P Problem List: (1) Primary adenocarcinoma of distal third of esophagus ICD Codes: C15.5 - Malignant neoplasm of lower third of esophagus Status: Acute (2) Atrial fibrillation with RVR ICD Codes: I48.91 - Unspecified atrial fibrillation Status: Acute (3) Acute hypoxemic respiratory failure ICD Codes: J96.01 - Acute respiratory failure with hypoxia Status: Acute (4) Gastric adenocarcinoma ICD Codes: C16.9 - Malignant neoplasm of stomach, unspecified Status: Acute (5) DVT (deep venous thrombosis) ICD Codes: I82.409 - Acute embolism and thrombosis of unspecified deep veins of unspecified lower extremity (6) S/P gastrectomy ICD Codes: Z90.3 - Acquired absence of stomach [part of] Assessment and Plan 66 year old male s/p laparoscopic gastrectomy and cholecystectomy with Botox injection, s/p bilateral thoracostomy tube placement; open subtotal gastrectomy ; jejunostomy tube placement - DC drain - CT scan, no abscess or leak, stent in good position - continue water only PO, continue TF - PT, rehab placement Josh Ritchie MD Feb 19, 2017 19:46
[2017-02-19] MEDS: ZOLPIDEM TARTRATE 10 MG TAB PO PRN (22:07)
[2017-02-20] VITALS: BP 165/78; PULSE 95; RESP 16; TEMP 97.6; O2SAT 94
[2017-02-20] MEDS: ALPRAZolam 0.25 MG TAB PO PRN (00:35)
[2017-02-20 04:00] VITALS: BP 169/79; PULSE 93; RESP 16; TEMP 98; O2SAT 94
[2017-02-20] MEDS: NYSTATIN SUSP 500,000 U/5 ML CUP SWISH-SWAL SCH ×2 (04:51→11:36)
[2017-02-20] MEDS: ENOXAPARIN SODIUM 30 MG/0.3 ML SYRINGE SQ SCH (04:52)
[2017-02-20] MEDS: INSULIN ASPART SUPPLEMENTAL SCALE SQ SCH ×3 (05:32→11:37)
[2017-02-20 07:48] VITALS: O2SAT 96
[2017-02-20] MEDS: RESP: ALBUTEROL 2.5 MG/IPRATROPIUM 0.5 MG NEB (SCH) NEB (07:48)
[2017-02-20 08:00] VITALS: BP 146/84; PULSE 112; RESP 20; TEMP 97.4; O2SAT 96
[2017-02-20] MEDS: SODIUM CHLORIDE 0.9% FLUSH 10 ML FLUSH IV FLUSH SCH (09:17)
[2017-02-20] MEDS: METOPROLOL TARTRATE 50 MG TAB PO SCH (09:17)
[2017-02-20] MEDS: guaiFENesin E.R. 600 MG TAB PO SCH (09:17)
[2017-02-20] MEDS: FLUCONAZOLE 100 MG TAB PO SCH (09:17)
[2017-02-20] MEDS: LISINOPRIL 20 MG TAB PO SCH (09:17)
[2017-02-20] MEDS: AMOXICILLIN/CLAVULANATE K 875 MG TAB PO SCH (09:17)
[2017-02-20] MEDS: POTASSIUM CHLORIDE 20 MEQ CONTROLLED RELEASE TAB PO SCH (09:18)
[2017-02-20] MEDS: INSULIN DETEMIR 100 UNITS/ML VIAL SQ SCH (09:40)
[2017-02-20 11:17] LABS: AUTOMATED NEUTROPHIL # 8.4 TH/MM3 (1.8-7.7); BASOPHIL # 0.2 TH/MM3 (0-0.2); BASOPHIL % 2.1 % (0.0-2.0); EOSINOPHIL # 0.1 TH/MM3 (0-0.4); EOSINOPHIL % 0.8 % (0.0-4.0); HEMATOCRIT 35.6 % (39.0-51.0); HEMO FLAGS DIFF FINAL; LYMPHOCYTE # 2.1 TH/MM3 (1.0-4.8); MEAN CELL VOLUME 92.6 FL (80.0-100.0); MEAN CORPUSCULAR HEMOGLOBIN 30.4 PG (27.0-34.0); MEAN CORPUSCULAR HGB CONC 32.9 % (32.0-36.0); MONO % 8.3 % (0.0-8.0); NEUT % 70.8 % (16.0-70.0); PLATELET COUNT 319 TH/MM3 (150-450); RED BLOOD COUNT 3.84 MIL/MM3 (4.50-5.90); RED CELL DISTRIBUTION WIDTH 13.5 % (11.6-17.2); WHITE BLOOD COUNT 11.9 TH/MM3 (4.0-11.0)
[2017-02-20 11:42] LABS: ANION GAP 8 MEQ/L (5-15); BICARBONATE 25.9 MEQ/L (21.0-32.0); BLOOD UREA NITROGEN 11 MG/DL (7-18); CHLORIDE 104 MEQ/L (98-107); GLOMERULAR FILTRATION RATE 126 ML/MIN (>89); MAGNESIUM 2.4 MG/DL (1.5-2.5); POTASSIUM 3.7 MEQ/L (3.5-5.1); SODIUM (NA) 138 MEQ/L (136-145)
[2017-02-20] MEDS: cloNIDine HCL 0.1 MG TAB PO PRN (11:43)
[2017-02-20 12:00] VITALS: BP 176/83; PULSE 87; RESP 20; TEMP 97.9; O2SAT 94
--- NOTE | 2017-02-20 15:06 | HHI.PR ---
Subjective Remarks No new complaints. Objective Vitals Vital Signs Date Time Temp Pulse Resp B/P (MAP) Pulse Ox O2 Delivery O2 Flow Rate FiO2 02/20/17 12:00 97.9 87 20 176/83 (114) 94 02/20/17 08:00 97.4 112 20 146/84 (104) 96 02/20/17 07:48 96 21 02/20/17 04:00 98.0 93 16 169/79 (109) 94 02/20/17 00:00 97.6 95 16 165/78 (107) 94 02/19/17 20:00 98.5 105 18 138/59 (85) 95 02/19/17 19:31 95 02/19/17 16:00 98.8 90 20 164/98 (120) 95 Result Diagram: 02/20/17 0950 02/20/17 0950 Imaging Last Impressions Chest CT 02/19/17 0000 Signed Impressions: Service Date/Time: Sunday, February 19, 2017 18:22 - CONCLUSION: 1. Distal esophageal stent with air seen outside this especially adjacent to the distal right-sided esophagus. This is in a similar location to suspected extravasated contrast seen on the prior CT. This is concerning for ongoing esophageal tear. An abscess is not seen. 2. Mild bilateral pleural effusions with accompanying areas of atelectasis being worse on the right. 3. Mild prominence of the mediastinal and hilar regions. 4. Persistent hazy density/induration in the fat just deep to the anterior abdominal wall in the upper abdomen anterior to the left lobe liver. This is likely a postsurgical change. Gonzales Bernstein MD Abdomen/Pelvis CT 02/19/17 0000 Signed Impressions: Service Date/Time: Sunday, February 19, 2017 18:22 - CONCLUSION: 1. Interim placement of distal esophageal stent. No abscess or evidence of leak. 2. Persistent mesenteric edema along the midline laparotomy. Gonzales Pierre MD Upper Extremity Ultrasound 02/14/17 0000 Signed Impressions: Service Date/Time: Tuesday, February 14, 2017 10:06 - CONCLUSION: Incompletely occlusive DVT in the RIGHT subclavian vein. There is also incompletely occlusive clot in the basilic vein Gonzales Kilgore MD GI Procedure 02/13/17 0000 Signed Impressions: Service Date/Time: Monday, February 13, 2017 13:31 - CONCLUSION: 1. Postsurgical changes as above. Bradley Jacobsen MD Chest X-Ray 02/09/17 0000 Signed Impressions: Service Date/Time: Thursday, February 09, 2017 10:08 - CONCLUSION: Interval improvement with persistent consolidative changes left base. Rivas Das MD FACR Lower Extremity Ultrasound 01/27/17 0000 Signed Impressions: Service Date/Time: Friday, January 27, 2017 12:49 - CONCLUSION: No DVT in either lower extremity. Elijah Funes MD Chest Ultrasound 01/24/17 0000 Signed Impressions: Service Date/Time: Tuesday, January 24, 2017 11:13 - CONCLUSION: 1. Large left pleural effusion. Jayson Das MD Upper GI/Barium Swallow X-Ray 01/22/17 0000 Signed Impressions: Service Date/Time: Sunday, January 22, 2017 12:29 - CONCLUSION: 1. Findings suspicious for a small leak at the gastroesophageal junction with contrast pooling into an air fluid collection adjacent to the GE junction and distal esophagus. There was an end to side anastomosis performed so it is possible, but felt unlikely, that the collection represents a portion of the proximal stomach. 2. Findings were discussed with Dr. Ritchie. Gonzales Ramsay MD Abdomen CT 01/22/17 0000 Signed Impressions: Service Date/Time: Sunday, January 22, 2017 17:12 - CONCLUSION: 1. There is an abnormal air and fluid collection located to the right of the GE junction adjacent to the proximal stomach. It extends into the posterior mediastinum. The current appearance and findings on fluoroscopy examination earlier today are indicative of a leak at the anastomosis. The current surgical drain is not directly adjacent to the collection and based on the location I do not think that we could place a drain in an appropriate location percutaneously. 2. Small bilateral pleural effusions with associated atelectasis and/or consolidation in both lower lobes. Gonzales Ramsay MD Objective Remarks GENERAL: This is a well-nourished, well-developed patient, in no apparent distress. CARDIOVASCULAR: Regular rate and rhythm without murmurs, gallops, or rubs. RESPIRATORY: Clear to auscultation. Breath sounds equal bilaterally. No wheezes , rales, or rhonchi. GASTROINTESTINAL: Abdomen soft, non-tender, nondistended. Normal active bowel sounds MUSCULOSKELETAL: Extremities without clubbing, cyanosis, or edema. NEURO: Alert & Oriented x4 to person, place, time, situation. 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 He was staged at a T1a,Nx based on EUS, CT thorax/Abd/pelvis and PET scan. Pt follows with Dr. Nickolas Luna for Oncology. - He was admitted to [facility] on 01/17/17 for Laparoscopic partial gastrectomy and cholecystectomy with Botox injection with Dr. Ritchie. - Post-op pain control per Surgery - Pt is NPO with ANDREW drain in place - He has been requiring increased supplemental O2 - Pt more SOB on 01/21. - Repeat CXR (01/21) --> Increasing opacity at the lung bases left greater than right with blunting of the costophrenic angle on the left consistent with an effusion. Apparent nasogastric tube with the tip in the distal esophagus. The side-port appears projected over the mid esophagus. - He was given Lasix 20mg IV x one dose on 01/21. - Pt still requiring 5-6L via Venti-mask with O2 sats in the low 90's. - Gastrografin esophagram (01/22/17) --> Findings suspicious for a small leak at the gastroesophageal junction with contrast pooling into an air fluid collection adjacent to the GE junction and distal esophagus. There was an end to side anastomosis performed so it is possible, but felt unlikely, that the collection represents a portion of the proximal stomach. - CT Abd/pelvis (01/22/17) --> There is an abnormal air and fluid collection located to the right of the GE junction adjacent to the proximal stomach. It extends into the posterior mediastinum. The current appearance and findings on fluoroscopy examination earlier today are indicative of a leak at the anastomosis. The current surgical drain is not directly adjacent to the collection and based on the location I do not think that we could place a drain in an appropriate location percutaneously. Small bilateral pleural effusions with associated atelectasis and/or consolidation in both lower lobes. - Pathology --> Poorly differentiate adenocarcinoma and signet ring cell carcinoma, tumor extends to the proximal resection margin over a large area. The distal margin of resection is free of tumor. 01/19 -cholecystectomy, proximal gastrectomy with GE junction anastomosis and Botox injection by Dr. Ritchie 01/24 - bilateral chest tubes/open subtotal gastrectomy and jejunostomy placement -Pt developed afib/rvr -Developed respiratory failure and Intubated Reintubated on 02/06. Extubated on 02/11. -TPN stopped 01/30. J-tube feeds advanced to goal. -Right pigtail catheter removed on 02/01, left pigtail catheter removed by surgery 02/02 -CT findings from 02/04 showing extraluminal air in fluid with contrast extending into posterior mediastinum and greenish yellow cloudy purulent drainage from Isidro drain raising concern for anastomotic leak. -CT chest 02/08/17 showed leak at the GE junction. Patient underwent EGD with esophageal stent placement by GI on 02/13. -- Left subclavian CVL placed 02/06. - Right subclavian CVL 01/24-02/06, right upper extremity PICC placed 01/23 ( discontinue 02/01). Discontinued right radial arterial line -right upper ext u/s 02/14...nonocclusive dvt subclavian and basilic -Currently on Zosyn, added vancomycin 01/27..stopped 02/13. Added fluconazole 400mg daily on 01/29 for mae from ANDREW drain. Stopped levaquin 02/01 All blood cultures negative so far. Wound culture with mae. Lipscomb cultures sent on 01/31, 06/12 blood culture with Staph Warneri ? contaminant. ID Dr. Pate -Cont tube feeding at 60ml/hr -lovenox bid started on 02/14 for dvt . convert to po eliquis or xarelto on d/c for at least 3-6m then per his hem/onc -consulted PT -on iv lasix for volume overload. improving. replace kcl. stopped iv lasix -cont levemir/ssi -dvt prophylaxis. -added nebs/mucomyst for increasing chest congestion. improve . stop mucomyst -adjust bp meds today. on lisinipril/metoprolol. prn clonidine. - 02/20/17 - stop zosyn and IV diflucan - pt has had NO high grade fever since 02/11/17 - pt able to tolerate PO pills, but all nutrition by TF - CT C/A/P (02/19/17) --> ?possible continue esophageal leak on CT chest - Case d/w Dr. Avilez (02/20/17) - No further surgical intervention at this time - Case d/w ID, Dr. Pate (02/20/17) - if no further anastomosis leak then, - augmentin & diflucan x 4weeks from time of esophageal stent placement 02/13/17 - Pt to f/u with ID outpt, Dr. Emilia Varela, 7-10 days after discharge. - [facility] - f/u with Dr. Avilez in 3 weeks - f/u with Dr. Emilia Varela in 2 weeks (2) HTN (hypertension) ICD Codes: I10 - Essential (primary) hypertension Status: Chronic Plan: - stable - lisinopril, metoprolol - prn catapress (3) Hyperlipidemia ICD Codes: E78.5 - Hyperlipidemia, unspecified Status: Chronic Plan: - Hold home meds until tolerating oral intake (4) GERD (gastroesophageal reflux disease) ICD Codes: K21.9 - Gastro-esophageal reflux disease without esophagitis Status: Chronic Plan: - PPI (5) DM2 (diabetes mellitus, type 2) ICD Codes: E11.9 - Type 2 diabetes mellitus without complications Status: Acute Plan: - obtain HgA1C - continue levemir - continue SSI - may be able to transition to OHA and stop levemir, outpt Problem Qualifiers (1) HTN (hypertension): Qualified Codes: I10 - Essential (primary) hypertension (2) DM2 (diabetes mellitus, type 2): Qualified Codes: E11.8 - Type 2 diabetes mellitus with unspecified complications Patrice Connelly DO Feb 20, 2017 15:05
[2017-02-20] MEDS ORDERED: CLON.1 PO (15:19)
[2017-02-20] MEDS ORDERED: POTA20TA5 PO (15:19)
[2017-02-20] MEDS ORDERED: METO-309 PO (15:19)
[2017-02-20] MEDS ORDERED: LEVEMIR SQ (15:19)
[2017-02-20] MEDS ORDERED: LISI-515 PO (15:19)
[2017-02-20] MEDS ORDERED: DIFL100T PO (15:19)
[2017-02-20] MEDS ORDERED: AMBI10TA PO (15:19)
[2017-02-20] MEDS ORDERED: OXYC-392 PO (15:19)
[2017-02-20] MEDS ORDERED: AMOX875T2 PO (15:19)
[2017-02-20] MEDS ORDERED: NOVOLOGSS SQ (15:19)
[2017-02-20] MEDS ORDERED: ALPR.25 PO (15:19)
--- NOTE | 2017-02-20 15:22 | HHI.DCPOC ---
Discharge Care Plan Diagnosis: (1) Gastric adenocarcinoma (2) DM2 (diabetes mellitus, type 2) (3) Atrial fibrillation with RVR (4) Primary adenocarcinoma of distal third of esophagus (5) HTN (hypertension) (6) GERD (gastroesophageal reflux disease) Goals to Promote Your Health * To prevent worsening of your condition and complications * To maintain your health at the optimal level Directions to Meet Your Goals Take your medications as prescribed Follow your dietary instruction Follow activity as directed Keep your appointments as scheduled Take your immunizations and boosters as scheduled If your symptoms worsen call your PCP, if no PCP go to Urgent Care Center or Emergency Room Smoking is Dangerous to Your Health. Avoid second hand smoke Call the 24-hour hour crisis hotline for domestic abuse at Patrice Connelly DO Feb 20, 2017 15:22
--- NOTE | 2017-02-20 15:38 | HHI.PR ---
Addendum to Inpatient Note Addendum Reason: Additional Documentation Additional Information d/w new CT findings. He will d.w about any further surgical needs to address leak. If no surgical plans possible discharge. Await call after input from . Kaia Pate MD Feb 20, 2017 15:38
--- NOTE | 2017-02-20 15:44 | HHI.PR ---
Subjective Subjective Notes Resting in bed at bedside [facility] Objective Vitals/I&O Vital Signs Date Time Temp Pulse Resp B/P (MAP) Pulse Ox O2 Delivery O2 Flow Rate FiO2 02/20/17 12:00 97.9 87 20 176/83 (114) 94 02/20/17 07:48 21 02/19/17 04:00 Room Air 02/17/17 08:05 2.00 Labs Laboratory Tests Test 02/20/17 09:50 White Blood Count 11.9 Red Blood Count 3.84 Hemoglobin 11.7 Hematocrit 35.6 Mean Corpuscular Volume 92.6 Mean Corpuscular Hemoglobin 30.4 Mean Corpuscular Hemoglobin Concent 32.9 Red Cell Distribution Width 13.5 Platelet Count 319 Mean Platelet Volume 9.3 Neutrophils (%) (Auto) 70.8 Lymphocytes (%) (Auto) 18.0 Monocytes (%) (Auto) 8.3 Eosinophils (%) (Auto) 0.8 Basophils (%) (Auto) 2.1 Neutrophils # (Auto) 8.4 Lymphocytes # (Auto) 2.1 Monocytes # (Auto) 1.0 Eosinophils # (Auto) 0.1 Basophils # (Auto) 0.2 CBC Comment DIFF FINAL Differential Comment Blood Urea Nitrogen 11 Creatinine 0.64 Random Glucose 119 Calcium Level 8.9 Magnesium Level 2.4 Sodium Level 138 Potassium Level 3.7 Chloride Level 104 Carbon Dioxide Level 25.9 Anion Gap 8 Estimat Glomerular Filtration Rate 126 Date/Time Source Procedure Growth Status 02/07/17 05:00 Blood Peripheral Aerobic Blood Culture - Final NO GROWTH IN 5 DAYS Complete 02/07/17 05:00 Blood Peripheral Anaerobic Blood Culture - Final NO GROWTH IN 5 DAYS Complete 02/06/17 09:30 Sputum Endotracheal Gram Stain - Final Complete 02/06/17 09:30 Sputum Endotracheal Sputum Culture - Final Complete 01/27/17 08:00 Urine Catheterized Urine Urine Culture - Final NO GROWTH IN 48 HOURS. Complete 02/04/17 17:00 Wound Abdomen Gram Stain - Final Complete 02/04/17 17:00 Wound Culture - Final Saida Albicans Complete Radiology Last Impressions Upper Extremity Ultrasound 02/14/17 Signed Impressions: Service Date/Time: Tuesday, February 14, 2017 10:06 - CONCLUSION: Incompletely occlusive DVT in the RIGHT subclavian vein. There is also incompletely occlusive clot in the basilic vein Gonzales Kilgore MD GI Procedure 02/13/17 0000 Signed Impressions: Service Date/Time: Monday, February 13, 2017 13:31 - CONCLUSION: 1. Postsurgical changes as above. Bradley Jacobsen MD Chest X-Ray 02/09/17 Signed Impressions: Service Date/Time: Thursday, February 09, 2017 10:08 - CONCLUSION: Interval improvement with persistent consolidative changes left base. Rivas Das MD FACR Chest CT 02/08/17 0000 Signed Impressions: Service Date/Time: January 15:50 - CONCLUSION: 1. Leak involving the GE junction as detailed in the above discussion. 2. Slight decrease in size of the small bilateral pleural effusions. 3. Unchanged bibasilar infiltrates. Chalino Olmedo Jr., MD Abdomen/Pelvis CT 02/04/17 0000 Signed Impressions: Service Date/Time: Saturday, February 04, 2017 23:18 - CONCLUSION: 1. No abscess is visualized, as questioned. However, there continues to be a small amount of fluid and air that appears extraluminal and located adjacent to the proximal stomach and extending into the posterior mediastinum adjacent to the distal esophagus. The right subhepatic drain is located near a portion of the fluid collection. There is also trace free fluid in the pelvis. 2. Anasarca. 3. Please refer to chest CT report for description of the supradiaphragmatic findings. Gonzales Ramsay MD Lower Extremity Ultrasound 01/27/17 0000 Signed Impressions: Service Date/Time: Friday, January 27, 2017 12:49 - CONCLUSION: No DVT in either lower extremity. Elijah Funes MD Chest Ultrasound 01/24/17 0000 Signed Impressions: Service Date/Time: Tuesday, January 24, 2017 11:13 - CONCLUSION: 1. Large left pleural effusion. Jayson Das MD Upper GI/Barium Swallow X-Ray 01/22/17 0000 Signed Impressions: Service Date/Time: Sunday, January 22, 2017 12:29 - CONCLUSION: 1. Findings suspicious for a small leak at the gastroesophageal junction with contrast pooling into an air fluid collection adjacent to the GE junction and distal esophagus. There was an end to side anastomosis performed so it is possible, but felt unlikely, that the collection represents a portion of the proximal stomach. 2. Findings were discussed with Dr. Ritchie. Gonzales Ramsay MD Abdomen CT 01/22/17 0000 Signed Impressions: Service Date/Time: Sunday, January 22, 2017 17:12 - CONCLUSION: 1. There is an abnormal air and fluid collection located to the right of the GE junction adjacent to the proximal stomach. It extends into the posterior mediastinum. The current appearance and findings on fluoroscopy examination earlier today are indicative of a leak at the anastomosis. The current surgical drain is not directly adjacent to the collection and based on the location I do not think that we could place a drain in an appropriate location percutaneously. 2. Small bilateral pleural effusions with associated atelectasis and/or consolidation in both lower lobes. Gonzales Ramsay MD Cardiovascular: Regular Lungs: Clear Abdomen: Other (midline incision with steri strips in place; ANDREW x2 removed; J tube in place without complications ) Extremities: Other Narrative Exam Moderate scrotal edema A/P Problem List: (1) Primary adenocarcinoma of distal third of esophagus ICD Codes: C15.5 - Malignant neoplasm of lower third of esophagus Status: Acute (2) Atrial fibrillation with RVR ICD Codes: I48.91 - Unspecified atrial fibrillation Status: Chronic (3) Acute hypoxemic respiratory failure ICD Codes: J96.01 - Acute respiratory failure with hypoxia Status: Resolved (4) Gastric adenocarcinoma ICD Codes: C16.9 - Malignant neoplasm of stomach, unspecified Status: Acute (5) DVT (deep venous thrombosis) ICD Codes: I82.409 - Acute embolism and thrombosis of unspecified deep veins of unspecified lower extremity Status: Acute (6) S/P gastrectomy ICD Codes: Z90.3 - Acquired absence of stomach [part of] Assessment and Plan 66 year old male s/p laparoscopic gastrectomy and cholecystectomy with Botox injection; s/p bilateral thoracostomy tube placement; open subtotal gastrectomy ; jejunostomy tube placement -s/p esophagus stent placement -Tolerating TF at goal -Okay for Ice and sips of water -Continue Lovenox BID -PT -Transfer [facility] today Attending Statement The exam, history, and the medical decision-making described in the above note were completed with the assistance of the mid-level provider. I reviewed and agree with the findings presented. I attest that I had a [id number] encounter with the patient on the same day, and personally performed and documented my assessment and findings in the medical record. Abdominal exam: soft, non-tender, pain controlled Es Solis Feb 20, 2017 15:44 Josh Ritchie MD Mar 13, 2017 23:34
[2017-02-20 16:00] VITALS: BP 149/77; PULSE 91; RESP 20; TEMP 97.3; O2SAT 92
[2017-02-20 16:01] LABS: HEMOGLOBIN A1a 2.8 %; HEMOGLOBIN Ao 82.9 %; HEMOGLOBIN F 1.3 %; HEMOGLOBIN LA1C 2.1 %; HEMOGLOBIN P3 3.8 %
[2017-03-06] MEDS ORDERED: PREV30CA11 PO (13:57)
[2017-03-06] MEDS ORDERED: LEVEMIR SQ (13:57)
[2017-03-06] MEDS ORDERED: LISI10TA3 PO (13:57)
[2017-03-06] MEDS ORDERED: ACET1TAB86 PO (13:57)
[2017-03-06] MEDS ORDERED: METO10TA PO (13:57)
[2017-03-06] MEDS ORDERED: POTA20TA5 PO (13:57)
[2017-03-06] MEDS ORDERED: AMOX875T2 PO (13:57)
[2017-03-06] MEDS ORDERED: OXYC-392 PO (13:57)
[2017-03-06] MEDS ORDERED: APIX2.5T PO (13:57)
[2017-03-06] MEDS ORDERED: Free Water J-TUBE (13:57)
[2017-03-06] MEDS ORDERED: DIFL100T PO (13:57)
[2017-03-06] MEDS ORDERED: METO-309 PO (13:57)
--- NOTE | 2017-03-22 08:58 | RADRPT ---
EXAM DATE/TIME: 02/14/2017 00:00 [place] COMPARISON : No previous studies available for comparison. INDICATIONS : Malfunctioning jejunal feeding tube PROCEDURE: The feeding tube was evaluated at the bedside. Initial attempts to flush the tube were unsuccessful. A guidewire was successfully passed through the tube to dislodge some of the encrusted material. The tube was then flushed with Pepsi and normal saline. The tube can be used immediately Gonzales Kilgore MD on March 21, 2017 at 22:46 Board Certified Radiologist. This report was verified electronically.
--- NOTE | 2017-03-22 15:06 | HHI.DS ---
Discharge Summary Admission Date Jan 17, 2017 at 08:07 Discharge Date: Feb 20, 2017 Admitting Diagnosis (1) Primary adenocarcinoma of distal third of esophagus ICD Codes: C15.5 - Malignant neoplasm of lower third of esophagus Status: Acute (2) Atrial fibrillation with RVR ICD Codes: I48.91 - Unspecified atrial fibrillation Status: Chronic (3) Acute hypoxemic respiratory failure ICD Codes: J96.01 - Acute respiratory failure with hypoxia Status: Resolved (4) Gastric adenocarcinoma ICD Codes: C16.9 - Malignant neoplasm of stomach, unspecified Status: Acute Brief History 66 year old male s/p laparoscopic gastrectomy and cholecystectomy with Botox injection; s/p bilateral thoracostomy tube placement; open subtotal gastrectomy ; jejunostomy tube placement PE at Discharge Resting in bed Cardio: RRR Resp: CTAB Abd; Incisions healing well; soft non tender; J tube in place Hospital Course This is a 66 year old male s/p laparoscopic gastrectomy and cholecystectomy with Botox injection; s/p bilateral thoracostomy tube placement; open subtotal gastrectomy; jejunostomy tube placement. The patient had a complicated hospitalization due to postoperative respiratory failure requiring mechanical ventilator. The patient was successfully extubated. The patient was able to tolerate tube feeding via jejunostomy tube. The patient was able to tolerate ice and sips of water. The patient will continue rehabilitation [facility]. He will follow-up in the office as indicated on the discharge information. Pt Condition on Discharge: Stable Discharge Disposition: Rehab Inpatient Discharge Instructions DIET: Follow Instructions for: Heart Healthy Diet, Diabetic Diet Activities you can perform: Weight Bearing as Es Negrete Mar 22, 2017 15:06
== END 2017-02-20 16:26 | DRG 326 ==
LOC: HSDI 08:07 → N07B 17:59 → N04B 01-23 13:41 → N03A 01-24 14:07 → N04B 02-16 17:08
PROVIDERS: ADMIT Surgery; ATTEND Surgery
PROC: 0FT44ZZ Resection of Gallbladder, Percutaneous Endoscopic Approach (ICD-10-PCS; 2017-01-17)
PROC: 3E0G8GC Introduction of Other Therapeutic Substance into Upper GI, Via Natural or Artificial Opening Endoscopic (ICD-10-PCS; 2017-01-17)
PROC: 3E0T3CZ (ICD-10-PCS; 2017-01-17)
PROC: 0DB64ZZ Excision of Stomach, Percutaneous Endoscopic Approach (ICD-10-PCS; principal; 2017-01-17 10:00)
PROC: 0D1 Gastrointestinal System, Bypass (ICD-10-PCS; 2017-01-17 10:00)
PROC: 5A1955Z Respiratory Ventilation, Greater than 96 Consecutive Hours (ICD-10-PCS; 2017-01-24)
PROC: 0DB60ZZ Excision of Stomach, Open Approach (ICD-10-PCS; 2017-01-24)
PROC: 0DHA0UZ Insertion of Feeding Device into Jejunum, Open Approach (ICD-10-PCS; 2017-01-24)
PROC: 0W9B30Z Drainage of Left Pleural Cavity with Drainage Device, Percutaneous Approach (ICD-10-PCS; 2017-01-24)
PROC: 0W9930Z Drainage of Right Pleural Cavity with Drainage Device, Percutaneous Approach (ICD-10-PCS; 2017-01-24)
PROC: 03HY32Z Insertion of Monitoring Device into Upper Artery, Percutaneous Approach (ICD-10-PCS; 2017-01-24)
PROC: 0BH17EZ Insertion of Endotracheal Airway into Trachea, Via Natural or Artificial Opening (ICD-10-PCS; 2017-01-24)
PROC: 02HV33Z Insertion of Infusion Device into Superior Vena Cava, Percutaneous Approach (ICD-10-PCS; 2017-01-24)
PROC: 0D130Z6 Bypass Lower Esophagus to Stomach, Open Approach (ICD-10-PCS; 2017-01-24 15:45)
PROC: 0BH18EZ Insertion of Endotracheal Airway into Trachea, Via Natural or Artificial Opening Endoscopic (ICD-10-PCS; 2017-02-06)
PROC: 5A1955Z Respiratory Ventilation, Greater than 96 Consecutive Hours (ICD-10-PCS; 2017-02-06)
PROC: 02HV33Z Insertion of Infusion Device into Superior Vena Cava, Percutaneous Approach (ICD-10-PCS; 2017-02-06)
PROC: 0DB68ZX Excision of Stomach, Via Natural or Artificial Opening Endoscopic, Diagnostic (ICD-10-PCS; 2017-02-09)
PROC: 0D748DZ Dilation of Esophagogastric Junction with Intraluminal Device, Via Natural or Artificial Opening Endoscopic (ICD-10-PCS; 2017-02-13)
DX: C16.0 Malignant neoplasm of cardia (principal); R65.20 Severe sepsis without septic shock; J96.01 Acute respiratory failure with hypoxia; J96.02 Acute respiratory failure with hypercapnia; A41.9 Sepsis, unspecified organism; J98.51 Mediastinitis; K65.1 Peritoneal abscess; J85.3 Abscess of mediastinum; J90 Pleural effusion, not elsewhere classified; K91.89 Other postprocedural complications and disorders of digestive system; E87.2 Acidosis; T81.4XXA Infection following a procedure, initial encounter; B37.89 Other sites of candidiasis; I82.B11 Acute embolism and thrombosis of right subclavian vein; I82.611 Acute embolism and thrombosis of superficial veins of right upper extremity; J98.11 Atelectasis; I10 Essential (primary) hypertension; E78.5 Hyperlipidemia, unspecified; K21.9 Gastro-esophageal reflux disease without esophagitis; D64.9 Anemia, unspecified; I48.0 Paroxysmal atrial fibrillation; E87.70 Fluid overload, unspecified; E11.9 Type 2 diabetes mellitus without complications; F41.9 Anxiety disorder, unspecified; G25.81 Restless legs syndrome; Z87.891 Personal history of nicotine dependence; Z88.8 Allergy status to other drugs, medicaments and biological substances
CPT/HCPCS: 31500; 36556; 36569; 36600; 71010; 71020; 71250; 71260; 74150; 74176; 74177; 74220; 76000; 76604; 76937; 80048; 80053; 80162; 80202; 81001; 82565; 82805; 82948; 83036; 83605; 83735; 84100; 84132; 84134; 84155; 85007; 85014; 85018; 85025; 85027; 85610; 86140; 86403; 86850; 86900; 86901; 86920; 87015; 87040; 87070; 87077; 87086; 87186; 87205; 87493; 87641; 88304; 88305; 88307; 88309; 93005; 93970; 93971; 94002; 94003; 94150; 94640; 94664; C1769; C2625; C9113; C9290; J0131; J0360; J0585; J0690; J1160; J1170; J1200; J1450; J1642; J1650; J1815; J1940; J1956; J2060; J2250; J2270; J2405; J2543; J3010; J3370; J3480; J7030; J7040; J7050; J7120; J7608; P9047; Q9963; Q9967

== ENCOUNTER 2017-04-14 17:40 | Emergency (ER) | payer MEDICARE ==
[~2017-04-14] VITALS: Ht 180.3 cm; Wt 76.0 kg
[~2017-04-14 17:40] MED LIST changes: +ACET325T15 PO; -ACYC-101 PO; +ALPR.25 PO; -ALPR0.25 PO; +AMBI10TA PO; -AMLO5TAB2 PO; +AMOX875T2 PO; +APIX2.5T PO; -ASPI-110 PO; +CLON.1 PO; -CYCL1TAB29 PO; -DIAZ5TAB PO; +DIFL100T PO; +Free Water J-TUBE; -HYDR-3580 PO; -HYDR25TA5 PO; +KANGAROO JOEY P1 MIS; +LEVEMIR SQ; +LISI-515 PO; +LISI10TA3 PO; -LOSA50TA PO; +METO-309 PO; +METO10TA PO; +NOVOLOGSS SQ; +OXYC-392 PO; +POTA20TA5 PO; -PREV30CA11 PO; +PREV30CA36 PO; -ZETI10TA5 PO; +ZOFR4TAB PO; -ZOLP5TAB3 PO
[2017-04-14 17:43] VITALS: BP 145/68; PULSE 78; RESP 18; TEMP 98.1; O2SAT 98
[2017-04-14] MEDS ORDERED: ACYC400T PO (19:41)
[2017-04-14] MEDS ORDERED: HYCOS PO (19:41)
[2017-04-14] MEDS ORDERED: LIDOPOW ID (19:41)
[2017-04-14] MEDS ORDERED: DIAZ5TAB PO (19:41)
[2017-04-14] MEDS ORDERED: HYDR-3288 PO (19:41)
[2017-04-14] MEDS ORDERED: LOSA50TA PO (19:42)
--- NOTE | 2017-04-14 20:06 | PD ---
HPI Chief Complaint: GI Complaint Time Seen by Provider: 19:50 Travel History International Travel<30 days: No Contact w/Intl Traveler<30days: No Traveled to known affect area: No History of Present Illness HPI 66yo M with PMH of adenocarcinoma, HTN, afib, GERD, s/p gastrectomhy, jejunostomy tub placement, subsequent fistual and stent placement here with c/o abdominal pain, distension and leakage from the jejunostomy tube today. Pt had panendoscopy by Dr. Echavarria 04/11/17 and stent removal and was feeling fine until today. States he feels his abdomen becoming bigger, mild tenderness and had leakage from the j tube for the first time. Also felt a little sob. Denies any chest pain, fever, cough, focal weakness or numbness. PFSH Past Medical History Hx Anticoagulant Therapy: Yes (ELIQUIS) Arthritis: Yes Heart Rhythm Problems: No Cancer: Yes (ESOPHAGUS AND STOMACH) Cardiovascular Problems: Yes (HTN) High Cholesterol: Yes Chemotherapy: No Chest Pain: No Congestive Heart Failure: No Diabetes: No Endocrine: No Gastrointestinal Disorders: Yes GERD: Yes Glaucoma: No Genitourinary: No Hepatitis: No Hiatal Hernia: Yes Hypertension: Yes Immune Disorder: No Musculoskeletal: Yes (OA) Neurologic: No Psychiatric: No Reproductive: No Respiratory: Yes Radiation Therapy: No Sickle Cell Disease: No Thyroid Disease: No Ulcer: No Tetanus Vaccination: < 5 Years Past Surgical History Abdominal Surgery: Yes (Laproscopic gastrectomy and cholecystectomy on 01/17) AICD: No Arteriovenous Shunt: No Cardiac Surgery: No Ear Surgery: No Endocrine Surgery: No Eye Surgery: Yes (CATARACTS) Genitourinary Surgery: No Gynecologic Surgery: No Insulin Pump: No Joint Replacement: No Oral Surgery: Yes (Tooth extractions) Pacemaker: No Thoracic Surgery: No Other Surgery: Yes (RIGHT CARPAL TUNNEL RELEASE) Social History Alcohol Use: No Tobacco Use: No Substance Use: No Allergies-Medications (Allergen,Severity, Reaction): Coded Allergies: amlodipine (Unverified Allergy, Severe, MUSCLE PAIN, 04/14/17) atorvastatin (Unverified Allergy, Severe, MUSCLE PAIN, 04/14/17) pravastatin (Unverified Allergy, Severe, MUSCLE PAIN, 04/14/17) simvastatin (Unverified Allergy, Severe, MUSCLE PAIN, 04/14/17) Reported Meds & Prescriptions Reported Meds & Active Scripts Active [Free Water] 1 ML Flush 150 Ml J-TUBE Q6HR 30 Days Levemir Inj (Insulin Detemir) 1,000 unit/ 10 ML Vial 7 Units SQ Q12HR 30 Days Do not mix with any other Insulin. Lisinopril 10 Mg Tab 10 Mg PO Q12HR 30 Days Eliquis (Apixaban) 2.5 Mg Tab 5 Mg PO BID 30 Days for DVT repeat Doppler in 1 month prior to resuming monitor for bruising/bleeding Lopressor (Metoprolol Tartrate) 50 Mg Tab 50 Mg PO Q12HR 30 Days Prevacid (Lansoprazole) 30 Mg Capdr 30 Mg PO BID 30 Days Ambien (Zolpidem Tartrate) 10 Mg Tab 10 Mg PO HS PRN 30 Days Xanax (Alprazolam) 0.25 Mg Tab 0.25 Mg PO Q8H PRN 30 Days [place] Feeding Tube Pump Set 1 Mis Mis Ea .ROUTE CONTINUOUS glucerna 1.5 60ml/hour flush with 250ml free water q6h Reported Losartan (Losartan Potassium) 50 Mg Tab 50 Mg PO BID [Lidocaine] 5% Patch 1 Patch ID DAILY Hydromet Liq (Hydrocodone Bit/Homatropine Methylb) 5-1.5 Mg/5 Ml Syrp 5 Ml PO Q4H PRN Jensen (Hydrocodone-Acetaminophen) 7.5-325 mg Tab 1 Tab PO Q6H PRN Diazepam 5 Mg Tab 1-2 Tab PO HS PRN Acyclovir 400 Mg Tab 400 Mg PO Q6HR PRN Zofran (Ondansetron HCl) 4 Mg Tab 8 Mg PO Q12HR PRN Review of Systems Except as stated in HPI: all other systems reviewed are Neg Physical Exam Narrative GENERAL: 66yo M in mild distress. SKIN: Focused skin assessment warm/dry. HEAD: Atraumatic. Normocephalic. EYES: Pupils equal and round. No scleral icterus. No injection or drainage. ENT: No nasal bleeding or discharge. Mucous membranes pink and moist. NECK: Trachea midline. No JVD. CARDIOVASCULAR: Regular rate and rhythm. No murmur appreciated. RESPIRATORY: No accessory muscle use. Clear to auscultation. Breath sounds equal bilaterally. GASTROINTESTINAL: Abdomen soft, Mild ttp diffusely. No rebound tenderness or guarding. J tube in place, no leakage seen. MUSCULOSKELETAL: No obvious deformities. No clubbing. No cyanosis. No edema. NEUROLOGICAL: Awake and alert. No obvious cranial nerve deficits. Motor grossly within normal limits. Normal speech. PSYCHIATRIC: Appropriate mood and affect; insight and judgment normal. Data Data Last Documented VS Vital Signs Date Time Temp Pulse Resp B/P (MAP) Pulse Ox O2 Delivery O2 Flow Rate FiO2 04/15/17 01:48 04/15/17 01:47 70 18 100 04/14/17 22:24 Room Air 04/14/17 17:43 98.1 Orders Orders Basic Metabolic Panel (Bmp) (04/14/17 20:01) Complete Blood Count With Diff (04/14/17 20:01) Lipase (04/14/17 20:01) Prothrombin Time / Inr (Pt) (04/14/17 20:01) Act Partial Throm Time (Ptt) (04/14/17 20:01) Urinalysis - C+S If Indicated (04/14/17 20:01) Ct Abd/Pel W Iv Contrast(Rout) (04/14/17 20:01) Electrocardiogram (04/14/17 20:01) Chest, Single Ap (04/14/17 ) Troponin I (04/14/17 20:01) Pantoprazole Inj (Protonix Inj) (04/14/17 20:15) Morphine Inj (Morphine Inj) (04/14/17 20:15) Iohexol 350 Inj (Omnipaque 350 Inj) (04/14/17 22:03) Ed Discharge Order (04/15/17 01:38) Labs Laboratory Tests Test 04/14/17 20:24 04/14/17 22:22 White Blood Count 7.9 TH/MM3 Red Blood Count 4.72 MIL/MM3 Hemoglobin 13.6 GM/DL Hematocrit 41.7 % Mean Corpuscular Volume 88.4 FL Mean Corpuscular Hemoglobin 28.8 PG Mean Corpuscular Hemoglobin Concent 32.6 % Red Cell Distribution Width 14.6 % Platelet Count 243 TH/MM3 Mean Platelet Volume 8.4 FL Neutrophils (%) (Auto) 67.1 % Lymphocytes (%) (Auto) 22.5 % Monocytes (%) (Auto) 6.6 % Eosinophils (%) (Auto) 3.3 % Basophils (%) (Auto) 0.5 % Neutrophils # (Auto) 5.3 TH/MM3 Lymphocytes # (Auto) 1.8 TH/MM3 Monocytes # (Auto) 0.5 TH/MM3 Eosinophils # (Auto) 0.3 TH/MM3 Basophils # (Auto) 0.0 TH/MM3 CBC Comment DIFF FINAL Differential Comment Prothrombin Time 10.7 SEC Prothromb Time International Ratio 1.0 RATIO Activated Partial Thromboplast Time 24.8 SEC Blood Urea Nitrogen 4 MG/DL Creatinine 0.54 MG/DL Random Glucose 87 MG/DL Calcium Level 9.2 MG/DL Sodium Level 140 MEQ/L Potassium Level 4.1 MEQ/L Chloride Level 103 MEQ/L Carbon Dioxide Level 28.6 MEQ/L Anion Gap 8 MEQ/L Estimat Glomerular Filtration Rate 153 ML/MIN Troponin I LESS THAN 0.02 NG/ML Lipase 121 U/L Urine Color LIGHT-YELLOW Urine Turbidity CLEAR Urine pH 7.5 Urine Specific [place] 1.009 Urine Protein NEG mg/dL Urine Glucose (UA) NEG mg/dL Urine Ketones NEG mg/dL Urine Occult Blood NEG Urine Nitrite NEG Urine Bilirubin NEG Urine Urobilinogen LESS THAN 2.0 MG/DL Urine Leukocyte Esterase NEG Urine RBC 1 /hpf Urine WBC LESS THAN 1 /hpf Urine Mucus FEW /lpf Microscopic Urinalysis Comment CULT NOT INDICATED MDM Medical Decision Making Medical Screen Exam Complete: Yes Emergency Medical Condition: Yes Differential Diagnosis J tube malfunction vs. obstruction vs. fistula Narrative Course 66yo M with c/o leakage from his j tube today. There is no leakage on exam. Abdomen is mildly tender diffusely. Labs reviewed, no leukocytosis. H/H normal. Troponin negative. Lipase normal. UA showed no leukocyte. Culture not indicated. CT a/p showed circumferential esophageal thickening distal esophagus that is nonspecific. Right pleural effusion and basilar atelectatic changes and scarring. No evidence of bowel obstruction or abscess. Pt given pantoprazole and morphine and now pain has resolved. Pt has been observed in the ED and there is no leakage in J tube. CXR showed left effusion suspected. Pt said he is not sob any more. O2 sat 97% on RA and speaking in complete sentences. Did put a call out to GI but did not hear back. Pt is reliable and can follow up as outpatient. Return precautions given. Diagnosis Primary Impression: Jejunostomy tube leak Referrals: Adelina Hernandez MD as needed Patient Instructions: General Instructions Departure Forms: Tests/Procedures Additional Instructions: Please follow up with GI in 1-2 days. Return to the ED if symptoms worsen. Med/Other Pt SpecificInfo: No Change to Meds Disposition: 01 DISCHARGE HOME Condition: Stable Helen Bowen DO Apr 14, 2017 20:06
[2017-04-14] MEDS ORDERED: PANTOPRAZOLE SODIUM 40 MG VIAL IV PUSH ONE (20:15)
[2017-04-14] MEDS ORDERED: MORPHINE SULFATE 4 MG/ML INJ IV PUSH ONE (20:15)
[2017-04-14 20:56] LABS: AUTOMATED NEUTROPHIL # 5.3 TH/MM3 (1.8-7.7); BASOPHIL % 0.5 % (0.0-2.0); EOSINOPHIL # 0.3 TH/MM3 (0-0.4); EOSINOPHIL % 3.3 % (0.0-4.0); HEMATOCRIT 41.7 % (39.0-51.0); HEMO FLAGS DIFF FINAL; LYMPH % 22.5 % (9.0-44.0); LYMPHOCYTE # 1.8 TH/MM3 (1.0-4.8); MEAN CELL VOLUME 88.4 FL (80.0-100.0); MEAN CORPUSCULAR HEMOGLOBIN 28.8 PG (27.0-34.0); MEAN CORPUSCULAR HGB CONC 32.6 % (32.0-36.0); MONO % 6.6 % (0.0-8.0); NEUT % 67.1 % (16.0-70.0); PLATELET COUNT 243 TH/MM3 (150-450); RED BLOOD COUNT 4.72 MIL/MM3 (4.50-5.90); RED CELL DISTRIBUTION WIDTH 14.6 % (11.6-17.2); WHITE BLOOD COUNT 7.9 TH/MM3 (4.0-11.0)
[2017-04-14 21:09] LABS: APTT (PATIENT) 24.8 SEC (24.3-30.1); PROTHROMBIN TIME - PATIENT 10.7 SEC (9.8-11.6)
[2017-04-14 21:19] LABS: ANION GAP 8 MEQ/L (5-15); BICARBONATE 28.6 MEQ/L (21.0-32.0); BLOOD UREA NITROGEN 4 MG/DL (7-18); CHLORIDE 103 MEQ/L (98-107); GLOMERULAR FILTRATION RATE 153 ML/MIN (>89); POTASSIUM 4.1 MEQ/L (3.5-5.1); SODIUM (NA) 140 MEQ/L (136-145)
--- NOTE | 2017-04-14 21:32 | RADRPT ---
EXAM DATE/TIME: 04/14/2017 20:33 [facility] COMPARISON: CHEST SINGLE AP, February 21, 2017, 15:40. INDICATIONS : Chest Pain, MEDICAL HISTORY : None. SURGICAL HISTORY : None. ENCOUNTER: Initial ACUITY: 1 day PAIN SCORE: 5/10 LOCATION: Bilateral chest FINDINGS: There is blunting of the left lateral costophrenic angle. Cardiomegaly. Right lung is clear. Degenera tive changes of the spine are seen. CONCLUSION: Left effusion suspected. Fer Flores MD on April 14, 2017 at 20:40 Board Certified Radiologist. This report was verified electronically.
[2017-04-14] MEDS ORDERED: IOHEXOL 350 MG/ML 10 ML VIAL (for RAD DIAG) IVCONTRAST ONE (22:03)
--- NOTE | 2017-04-14 22:15 | RADRPT ---
EXAM DATE/TIME: 04/14/2017 21:50 [facility] COMPARISON: CT ABDOMEN & PELVIS W CONTRAST, February 04, 2017, 23:18. INDICATIONS : Leakage from J-tube with abdominal pain and distention. Recent stomach stent removed. IV CONTRAST: 95 cc Omnipaque 350 (iohexol) IV ORAL CONTRAST: No oral contrast ingested. RADIATION DOSE: 6.77 CTDIvol (mGy) MEDICAL HISTORY : Cardiovascular disease. Hypertension. Stomach cancer. Esophagus cancer. SURGICAL HISTORY : Cholecystectomy. Gastrectomy. ENCOUNTER: Initial ACUITY: 1 day PAIN SCALE: 4/10 LOCATION: Bilateral abdomen TECHNIQUE: Volumetric scanning of the abdomen and pelvis was performed. Using automated exposure control and ad justment of the mA and/or kV according to patient size, radiation dose was kept as low as reasonably achievable to obtain optimal diagnostic quality images. DICOM format image data is available electro nically for review and comparison. FINDINGS: There is scarring at the lung bases, pleural thickening, and a small right-sided pleural effusion. Pa tient is status post cholecystectomy and there are surgical clips at the lower esophagus the region o f the esophagogastric junction. There is circumferential soft tissue thickening of the distal esophag us on image work. This is nonspecific in this patient with history of esophageal cancer and gastric c ancer. Pancreas, adrenals, kidneys unremarkable. A jejunostomy tube is present in the left upper quad rant. The tip terminates intraluminal he on image 53 at the midline. Urinary bladder unremarkable. Pr ostate is prominent in size measuring 5.1 x 20 cm. Small fat containing left inguinal hernia. No mala opathy or aneurysm. Diffuse atherosclerotic calcification of the aorta and iliac vessels are noted. T here are degenerative changes of the spine. CONCLUSION: 1. Circumferential esophageal thickening distal esophagus at the esophagogastric junction, nonspecifi c. 2. Right pleural effusion and basilar atelectatic changes and scarring. 3. No evidence for bowel obstruction or abscess. 4. Left inguinal hernia containing fat. Fer Flores MD on April 14, 2017 at 22:11 Board Certified Radiologist. This report was verified electronically.
[2017-04-14 22:24] VITALS: BP 151/77; PULSE 69; RESP 18; O2SAT 97
[2017-04-14 23:01] LABS: BLOOD, URINE NEG (NEG); COMMENT (UR) CULT NOT INDICATED; CULTURE IF INDICATED CULT NOT INDICATED; GLUCOSE,URINE NEG (NEG); KETONE, URINE NEG (NEG); MUCUS URINE FEW /lpf (OCC); NITRITE,URINE NEG (NEG); PH, URINE 7.5 (5.0-8.5); URINE COLOR LIGHT-YELLOW (YELLW/STRAW)
[2017-04-15 01:47] VITALS: BP 163/79; PULSE 70; RESP 18; O2SAT 100
--- NOTE | 2017-04-15 12:35 | EKG ---
Date Performed: 04/14/2017 Time Performed: 21:30:59 PTAGE: 66 years EKG: Sinus rhythm NORMAL ECG PREVIOUS TRACING : 01/27/2017 10.19 Compared to prior tracing no significant change DOCTOR: Te Lebron Interpretating Date/Time 04/15/2017 12:32:08
== END 2017-04-15 01:07 | disposition home or self-care (01) ==
LOC: NEPE 17:40
DX: K94.19 Other complications of enterostomy (principal); R06.02 Shortness of breath; I10 Essential (primary) hypertension; E78.00 Pure hypercholesterolemia, unspecified; I48.91 Unspecified atrial fibrillation; M19.90 Unspecified osteoarthritis, unspecified site; Z79.01 Long term (current) use of anticoagulants
CPT/HCPCS: 71010; 74177; 80048; 81001; 83690; 84484; 85025; 85610; 85730; 93005; 96374; 96375; 99285; C9113; J2270; Q9967

== ENCOUNTER → 2017-05-16 | Day surgery (SDC) | payer MEDICARE ==
[~2017-05-16] MED LIST changes: -ACET325T15 PO; +ACYC400T PO; -AMOX875T2 PO; +CARA1TAB6 PO; -CLON.1 PO; +DIAZ5TAB PO; -DIFL100T PO; +HYCOS PO; +HYDR-3288 PO; +LIDOPOW ID; -LISI-515 PO; +LOSA50TA PO; -METO10TA PO; -NOVOLOGSS SQ; -OXYC-392 PO; -POTA20TA5 PO; +PROPOFOL 200 MG/20 ML AMP IV ONE; +[UNRECOGNIZED DRUG - CODE] J-TUBE
--- NOTE | 2017-05-16 09:53 | GIPROC ---
[facility] [address] [facility], [address] EGD PROCEDURE REPORT EXAM DATE: 05/16/2017 PATIENT NAME: Jayson Byrd MR #: [id number] BIRTHDATE: 1950 ATTENDING: Dakota Hong MD ORDER #: [id number] BOOKER: STATUS: outpatient INDICATIONS: The patient is a 66 yr old male here for an EGD due to dysphagia and hx of gastroesophageal cancer post resection PROCEDURE PERFORMED: EGD w/ balloon dilation of esophagus MEDICATIONS: None and Per Anesthesia. TOPICAL ANESTHETIC: CONSENT: The patient understands the risks and benefits of the procedure and understands that these risks include, but are not limited to: sedation, allergic reaction, infection, perforation and/or bleeding. Alternative means of evaluation and treatment include, among others: physical exam, x-rays, and/or surgical intervention. The patient elects to proceed with this endoscopic procedure. medical equipment was checked for proper function. Hand hygiene and appropriate measures for infection prevention was taken. After the risks, benefits and alternatives of the procedure were thoroughly explained, Informed consent was verified, confirmed and timeout was successfully executed by the treatment team. The patient was anesthetized with topical anesthesia and the EG-[id number] ([id number]) and EC-[id number] ([id number]) endoscope was introduced through the mouth and advanced to the esophagus lower. Retroflexion was not performed The gastroscope was then slowly withdrawn and removed. ESOPHAGUS: There was a benign appearing, fibrotic and severe stricture with an inner diameter of 5mm at the esopho-gastric anastamosis. The stricture was not traversable. Using a TTS-balloon the stricture was dilated up to 10mm. Dilated but no tear. ADVERSE EVENTS: There were no complications. IMPRESSIONS: 1. There was a stricture with an inner diameter of 5mm at the esopho-gastric anastamosis; Using a TTS-balloon the stricture was dilated up to 10mm 2. Retroflexion was not performed RECOMMENDATIONS: Soft/liquid diet PATIENT CONDITION: stable DISPOSITION: Home REPEAT EXAM: Return 2 weeks EGD with dilatation to be done under fluroscopy at the hospital Dakota Hong MD eSigned: Dakota Hong MD 05/16/2017 9:53 AM cc: Tai Vasquez [facility] Franc[place]a
== END | disposition home or self-care (01) ==
LOC: ESDC 06:49
PROVIDERS: ATTEND Internal Medicine Gastroenterology
DX: R13.10 Dysphagia, unspecified (principal); Z85.01 Personal history of malignant neoplasm of esophagus; K22.2 Esophageal obstruction
CPT/HCPCS: 00740; 43245; C1726; J3010

== ENCOUNTER → 2017-05-21 | Day surgery (SDC) | payer MEDICARE ==
[~2017-05-21] VITALS: Ht 180.3 cm; Wt 76.2 kg
[~2017-05-21] MED LIST changes: +CHLORHEXIDINE GLUCONATE 2 % 1 PACK (2 CLOTHS) TOPICAL PRN; +HEPARIN SODIUM - SQ 10,000 UNITS/ML VIAL ONE; +LACTATED RINGER'S 1000 ML IV PRN; +LIDOCAINE 1%/EPINEPHrine 1:100,000 SOLN 50 ML VIAL ONE; +LIDOCAINE HCL 1% PF 5 ML SYRINGE OTHER ONE; +METOPROLOL TARTRATE 25 MG TAB PO PRN; +MORPHINE SULFATE 4 MG/ML INJ ONE; +ONDANSETRON HCL 4 MG/2 ML VIAL ONE; +PHENYLEPH/NS 1000 MCG/10 ML SYR IV ONE; +POVIDONE IODINE 5% (ANTISEPSIS KIT) 4 APPLICATIONS EACH NARE PRN; +SODIUM CHLORID 0.9% 500 ML IV PRN; +ceFAZolin 2 GM PREMIX 50 ML IV SCH; +ePHEDrine/NS 25 MG/5 ML SYR IV ONE
[2017-05-21 11:04] LABS: AUTOMATED NEUTROPHIL # 5.2 TH/MM3 (1.8-7.7); BASOPHIL % 0.2 % (0.0-2.0); EOSINOPHIL # 0.3 TH/MM3 (0-0.4); EOSINOPHIL % 4.6 % (0.0-4.0); HEMATOCRIT 42.2 % (39.0-51.0); HEMO FLAGS DIFF FINAL; LYMPHOCYTE # 0.9 TH/MM3 (1.0-4.8); MEAN CELL VOLUME 87.7 FL (80.0-100.0); MEAN CORPUSCULAR HEMOGLOBIN 29.5 PG (27.0-34.0); MEAN CORPUSCULAR HGB CONC 33.6 % (32.0-36.0); MONO % 4.5 % (0.0-8.0); NEUT % 77.7 % (16.0-70.0); PLATELET COUNT 185 TH/MM3 (150-450); RED BLOOD COUNT 4.81 MIL/MM3 (4.50-5.90); RED CELL DISTRIBUTION WIDTH 14.8 % (11.6-17.2); WHITE BLOOD COUNT 6.6 TH/MM3 (4.0-11.0)
[2017-05-21 11:25] LABS: BICARBONATE 28.5 MEQ/L (21.0-32.0); POTASSIUM 4.1 MEQ/L (3.5-5.1)
--- NOTE | 2017-05-21 11:57 | HHI.PR ---
Immediate Post Op Note Procedure Date: May 21, 2017 Pre Op Diagnosis: gastric cancer, need for infusaport Post Op Diagnosis: same Surgeon: Yandel Howard MD Jackerman(s): see or sheet Procedure: left subclavian port a cath placement Findings: good flush good return, CXR pending Complications: none Specimen(s) removed: none Estimated blood loss: 5cc Anesthesia: General Drains: None Patient to: PACU Patient Condition: Good Yandel Howard MD May 21, 2017 11:57
[2017-05-21 12:55] VITALS: TEMP 97.6
[2017-05-21 13:39] VITALS: BP 146/74; PULSE 62; RESP 16; O2SAT 98
--- NOTE | 2017-05-21 14:03 | RADRPT ---
EXAM DATE/TIME: 05/21/2017 13:42 [facility] COMPARISON: CHEST SINGLE AP, April 14, 2017, 20:33. INDICATIONS : Post port placement. MEDICAL HISTORY : Cardiovascular disease. Hypertension stomach and esophageal cancer SURGICAL HISTORY : Cholecystectomy. gastrectomy ENCOUNTER: Initial ACUITY: 1 day PAIN SCORE: 0/10 LOCATION: Bilateral chest FINDINGS: A single view of the chest demonstrates left basilar infiltrate. Port with tip in SVC. No pneumothor ax. Right lung clear. Heart is normal. The cardiomediastinal contours are unremarkable. Osseous str uctures are intact. CONCLUSION: Left basilar infiltrate. Port with tip in SVC. Elijah Funes MD on May 21, 2017 at 13:57 Board Certified Radiologist. This report was verified electronically.
--- NOTE | 2017-05-22 06:47 | MP ---
cc: INDIRA HOWARD MD DATE OF SURGERY 05/21/2017 PREOPERATIVE DIAGNOSIS Gastric cancer, need for venous access. POSTOPERATIVE DIAGNOSIS Gastric cancer, need for venous access. PROCEDURE PERFORMED Left subclavian Port-A-Cath placement under direct fluoroscopy. SURGEON Dr. Indira Howard GIS ANALYST DEVELOPER See OR sheet ANESTHESIA GETA IV FLUIDS See anesthesia sheet. ESTIMATED BLOOD LOSS 5 cc DRAINS None COMPLICATIONS None WOUND CLASSIFICATION Clean FINDINGS Good flush, good returned. Chest x-ray is pending. INDICATION The patient is a 66-year-old male who is status post gastric cancer status post resection. The patient is in need of a venous access device, therefore decision was made for Port-A-Cath. Discussed with the patient in detail. DETAILS OF THE PROCEDURE The patient was taken to the operating suite, placed in the supine position. He was prepped and draped in the usual sterile fashion after induction of general endotracheal anesthesia. A brief time-out done stating correct patient, procedure, surgical site and we were all in agreement with this. The patient placed in Trendelenburg position. The landmarks were identified including the sternal notch, and clavicle. The Halsted ligament was also identified. Local anesthetic injected at the puncture site left of the clavicle in the port pocket where it was going to be placed. An introducer needle was obtained and aspirated, guided and entrance into the left subclavian vein. Dark blood was noted, therefore the syringe was removed needle in placed and the introducer wire was advanced. This was done in Seldinger technique fashion. The needle was then removed. Fluoroscopy used to directly visualize the wire as it is sitting in the SVC IVC and cannulated the vein. Next, a stab carson incision was made over the wire and a 15 blade used to make incision where the port pocket was going to be placed. Further dissection was with electro Bovie cautery and entered digitation. The catheter tubing was obtained. The tunnel was used to tunnel between the exit of the guidewire and where the port pouch is going to be. Once the tube was brought into place, the introducer sheath was obtained and cannulated over the wire. The wire and a cannulating stylet were removed and the catheter was fed into that introducer into the vein. Again, fluoroscopy confirmed placement and the tube was then withdrawn until it sat near the SVC junction. The catheter was then cut to size and the port was placed. Both were pre-flushed and the locking mechanism secured the tube over the port. 3-0 Prolene sutures were used x3 to anchor the port and keep it snugly in place against the chest wall. A Arenas needle was obtained to access the port and aspiration/irrigation smoothly and heparinized saline was introduced in the port. The port pocket was then closed with 3-0 Vicryl and 4-0 Monocryl and suture. Sterile dressings including Tegaderm and Steri-Strips and Mastisol were used. Chest x-ray is pending. All lap and instrument counts were correct at the end of the procedure. No intraoperative complication. The patient was extubated and taken to the PACU. MD URIAH Young/MATTHEW /8:47 PM /6:33 AM
== END | disposition home or self-care (01) ==
LOC: HSDC 09:39
PROVIDERS: ATTEND Surgery
DX: Z45.2 Encounter for adjustment and management of vascular access device (principal); C16.9 Malignant neoplasm of stomach, unspecified; I10 Essential (primary) hypertension; I25.10 Atherosclerotic heart disease of native coronary artery without angina pectoris
CPT/HCPCS: 00532; 36561; 71010; 76000; 80048; 85025; C1788; J0690; J1644; J2270; J2370; J2405; J3010; J7120

== ENCOUNTER → 2017-05-29 | Outpatient (CLI) | payer MEDICARE ==
[~2017-05-29] VITALS: Ht 180.3 cm; Wt 73.2 kg
[~2017-05-29] MED LIST changes: -APIX2.5T PO; -HEPARIN SODIUM - SQ 10,000 UNITS/ML VIAL ONE; -HYCOS PO; -LEVEMIR SQ; -LIDOCAINE 1%/EPINEPHrine 1:100,000 SOLN 50 ML VIAL ONE; -LIDOPOW ID; -LISI10TA3 PO; -MORPHINE SULFATE 4 MG/ML INJ ONE; -ONDANSETRON HCL 4 MG/2 ML VIAL ONE; -PHENYLEPH/NS 1000 MCG/10 ML SYR IV ONE; +PROPOFOL 500 MG/50 ML INJ 50 ML ONE; -ceFAZolin 2 GM PREMIX 50 ML IV SCH; -ePHEDrine/NS 25 MG/5 ML SYR IV ONE
--- NOTE | 2017-05-29 10:55 | GIPROC ---
[facility] [address] [facility]. [facility], [address] EGD PROCEDURE REPORT EXAM DATE: 05/29/2017 PATIENT NAME: Jayson Byrd MR #: [id number] BIRTHDATE: 1950 ATTENDING: Alyce Ghotra MD ORDER #: [id number] BRIDGE WELDER: Sugar Chung and Justine Vega STATUS: outpatient INDICATIONS: The patient is a 66 yr old male here for an EGD due to dysphagia PROCEDURE PERFORMED: EGD w/ balloon dilation of esophagus MEDICATIONS: None and Per Anesthesia. TOPICAL ANESTHETIC: none CONSENT: The patient understands the risks and benefits of the procedure and understands that these risks include, but are not limited to: sedation, allergic reaction, infection, perforation and/or bleeding. Alternative means of evaluation and treatment include, among others: physical exam, x-rays, and/or surgical intervention. The patient elects to proceed with this endoscopic procedure. medical equipment was checked for proper function. Hand hygiene and appropriate measures for infection prevention was taken. After the risks, benefits and alternatives of the procedure were thoroughly explained, Informed consent was verified, confirmed and timeout was successfully executed by the treatment team. The patient was anesthetized with topical anesthesia and the Pentax EG-[id number] endoscope was introduced through the mouth and advanced to the second portion of the duodenum. Retroflexion was performed and was normal The gastroscope was then slowly withdrawn and removed. ESOPHAGUS: There was a fibrotic stricture at the esopho-gastric anastamosis. The stricture was not traversable. The stricture was dilated using a 7mm (21Fr) savary dilator over guidewire. Following this dilation, there was no change in the appearance of the stricture. The stricture was dilated using a 11mm (33Fr) savary dilator over guidewire. Following this dilation, there was a small mucosal rent. The stricture was dilated using a 9mm (27Fr) savary dilator over guidewire. Following this dilation, there was a small mucosal rent. STOMACH: The mucosa of the stomach appeared normal. DUODENUM: The duodenal mucosa appeared normal in the bulb and second portion of the duodenum. ADVERSE EVENTS: There were no complications. IMPRESSIONS: 1. There was a stricture at the esopho-gastric anastamosis; The stricture was dilated using a 7mm (21Fr) savary dilator over guidewire.; Following this dilation, followed by 9 mm then 11mm (33Fr) savary dilator over guidewire.; Following this dilation, there was a small mucosal rent 2. The mucosa of the stomach appeared normal 3. Normal duodenal mucosa in the bulb and second portion of the duodenum 4. Retroflexion was performed and was normal RECOMMENDATIONS: No treatment PATIENT CONDITION: stable DISPOSITION: Observation REPEAT EXAM: Return 4 weeks EGD with dilatation Alyce Ghotra MD eSigned: Alyce Ghotra MD 05/29/2017 10:55 AM cc: PATIENT NAME: Jayson Byrd MR#: [id number]
[2017-05-29 11:35] VITALS: BP 110/67; PULSE 60; RESP 16; TEMP 97.6; O2SAT 100
== END ==
LOC: HSDC 07:48
PROVIDERS: ATTEND Specialist
DX: R13.10 Dysphagia, unspecified (principal); K22.2 Esophageal obstruction; E78.5 Hyperlipidemia, unspecified; R14.0 Abdominal distension (gaseous); R11.0 Nausea; E11.9 Type 2 diabetes mellitus without complications; I25.10 Atherosclerotic heart disease of native coronary artery without angina pectoris; G25.81 Restless legs syndrome; Z85.01 Personal history of malignant neoplasm of esophagus; Z87.891 Personal history of nicotine dependence; Z90.3 Acquired absence of stomach [part of]
CPT/HCPCS: 00740; 43248; 76000; C1769; J3010

== ENCOUNTER → 2017-06-28 | Outpatient (CLI) | payer MEDICARE ==
[~2017-06-28] VITALS: Ht 180.3 cm; Wt 74.3 kg
[~2017-06-28] MED LIST changes: +INSULIN HUMAN REGULAR 1,000 UNITS/10 ML VIAL SQ PRN; -PROPOFOL 500 MG/50 ML INJ 50 ML ONE; +[UNRECOGNIZED DRUG - CODE] PO
--- NOTE | 2017-06-28 10:40 | PD.PROCEDR ---
GI Procedure PROCEDURE PERFORMED EGD with dilation INDICATION FOR PROCEDURE Gastroesophageal anastomotic stricture, dysphagia PROCEDURE: The procedure, risks and benefits were discussed with Mr. Byrd and informed consent was obtained. Anesthesia sedated him with Diprivan. He was placed in the left lateral decubitus position. EGD: The Pentax videoscope was introduced through the oropharynx and advanced to the second portion of the duodenum under direct visualization. Retroflexion was performed in the stomach. FINDINGS: The esophagus there was a distal gastroesophageal anastomotic stricture this was very severe I could not pass the scope this was initially dilated with a savory dilator over guidewire first size 8-10 then 12 mm postdilatation view reveals a mild rent and the scope was advanced beyond this appeared to be a benign stricture and the rest of the esophagus was unremarkable The stomach this appeared to be unremarkable and within normal limits The duodenum this too appeared to be unremarkable and within normal limits ESTIMATED BLOOD LOSS: Minimal SPECIMENS REMOVED: None COMPLICATIONS: None IMPRESSION: Gastroesophageal anastomotic stricture PLAN: Patient must have an EGD with dilation within 2 weeks Soft diet Dakota Hong MD Jun 28, 2017 10:40
[2017-06-28 11:24] VITALS: BP 157/69; PULSE 72; RESP 18; TEMP 97.6; O2SAT 99
--- NOTE | 2017-06-28 21:52 | EKG ---
Date Performed: 06/28/2017 Time Performed: 08:34:12 PTAGE: 66 years EKG: Sinus rhythm NORMAL ECG PREVIOUS TRACING : 04/14/2017 21.30 Since previous tracing, no significant change noted DOCTOR: Kris Cervantes Interpretating Date/Time 06/28/2017 21:51:25
== END ==
LOC: HSDC 08:08
PROVIDERS: ATTEND Internal Medicine Gastroenterology
DX: K22.2 Esophageal obstruction (principal); R13.10 Dysphagia, unspecified; R10.13 Epigastric pain; C16.9 Malignant neoplasm of stomach, unspecified; K21.9 Gastro-esophageal reflux disease without esophagitis; K22.8 Other specified diseases of esophagus; I10 Essential (primary) hypertension; Z93.4 Other artificial openings of gastrointestinal tract status; Z79.01 Long term (current) use of anticoagulants
CPT/HCPCS: 00731; 43248; 93005; C1769

== ENCOUNTER → 2017-07-12 | Outpatient (CLI) | payer MEDICARE ==
[~2017-07-12] VITALS: Ht 180.3 cm; Wt 73.5 kg
[~2017-07-12] MED LIST changes: -AMBI10TA PO; +BELL1TAB PO; +LIDO5%T TOPICAL; +TRIAMCINOLONE ACETONIDE 50 MG/5 ML VIAL OTHER ONE; +ZOLP5TAB3 PO
--- NOTE | 2017-07-12 08:29 | EKG ---
Date Performed: 07/12/2017 Time Performed: 08:02:55 PTAGE: 67 years EKG: Sinus rhythm NORMAL ECG No significant change from prior electrocardiogram. PREVIOUS TRACING : 06/28/2017 08.34 DOCTOR: Ant Carmona Interpretating Date/Time 07/12/2017 08:28:26
--- NOTE | 2017-07-12 10:15 | GIPROC ---
[facility] [address] [facility]. [facility], [address] EGD PROCEDURE REPORT EXAM DATE: 07/12/2017 PATIENT NAME: Jayson Byrd MR #: [id number] BIRTHDATE: 1950 ATTENDING: Fabi Alexandra MD ORDER #: [id number] [employer] SUPERVISOR: Nicolas Amaro and Justine Vega STATUS: outpatient INDICATIONS: The patient is a 67 yr old male here for an EGD due to dysphagia PROCEDURE PERFORMED: EGD w/ dilation of esophagus via guidewire EGD w/ directed submucosal injection(s), any substance MEDICATIONS: None and Per Anesthesia. TOPICAL ANESTHETIC: CONSENT: The patient understands the risks and benefits of the procedure and understands that these risks include, but are not limited to: sedation, allergic reaction, infection, perforation and/or bleeding. Alternative means of evaluation and treatment include, among others: physical exam, x-rays, and/or surgical intervention. The patient elects to proceed with this endoscopic procedure. medical equipment was checked for proper function. Hand hygiene and appropriate measures for infection prevention was taken. After the risks, benefits and alternatives of the procedure were thoroughly explained, Informed consent was verified, confirmed and timeout was successfully executed by the treatment team. The patient was anesthetized with topical anesthesia and the Mylaax [id number]-[id number] endoscope was introduced through the mouth and advanced to the gastroesophageal junction. The gastroscope was then slowly withdrawn and removed. ESOPHAGUS: There was a short friable, fibrotic and severe stricture in the distal esophagus and 35 cm from the incisors. The stricture was not traversable. The stricture was dilated using a 10mm (30Fr) savary dilator over guidewire. Dilation was performed under fluoroscopy. The stricture was dilated using a 12mm (36Fr) savary dilator over guidewire. Dilation was performed under fluoroscopy. The stricture was dilated using a 14mm (42Fr) savary dilator over guidewire. Dilation was performed under fluoroscopy. The stricture was dilated using a 15mm (45Fr) savary dilator over guidewire. Following this dilation, there was a medium sized mucosal rent. Dilation was performed under fluoroscopy. Injected with 10mg of triamcinolone , 1 cc each x 4. ADVERSE EVENTS: There were no complications. IMPRESSIONS: 1. There was a short stricture in the distal esophagus and 35 cm from the incisors; The stricture was dilated using a 10mm (30Fr) savary dilator over guidewire.; The stricture was dilated using a 12mm (36Fr) savary dilator over guidewire.; The stricture was dilated using a 14mm (42Fr) savary dilator over guidewire.; The stricture was dilated using a 15mm (45Fr) savary dilator over guidewire.; Following this dilation, there was a medium sized mucosal rent 2. Injected with 10mg of triamcinolone , 1 cc each x 4 RECOMMENDATIONS: 1. Continue PPI 2. Full liquids today, advance as tolerated PATIENT CONDITION: stable DISPOSITION: Home REPEAT EXAM: Return 3 months EGD with dilatation Fabi Alexandra MD eSigned: Fabi Alexandra MD 07/12/2017 10:15 AM cc: PATIENT NAME: Jayson Byrd MR#: [id number]
--- NOTE | 2017-07-12 10:39 | RADRPT ---
EXAM DATE/TIME: 07/12/2017 09:59 [facility] COMPARISON: GI LAB WIRE DILATATION, February 13, 2017, 13:31. INDICATIONS : Esophageal stricture; wire dilatation. FLUORO TIME: 1.2 minutes IMAGE COUNT: 1 CONTRAST: Instilled by Ordering Physician MEDICAL HISTORY : Cardiovascular disease. Hypertension stomach and esophageal cancer SURGICAL HISTORY : Cholecystectomy. gastrectomy ENCOUNTER: Initial ACUITY: 1 day PAIN SCORE: Non-responsive. LOCATION: Esophagus. FINDINGS: A single cone down view of the distal esophagus was obtained and demonstrates an endoscope in place w ith wire crossing the region of the gastroesophageal junction. The previously noted esophageal stent catheter is no longer visualized. CONCLUSION: Single view exam as described. Jose Diamond MD on July 12, 2017 at 10:34 Board Certified Radiologist. This report was verified electronically.
[2017-07-12 10:51] VITALS: BP 126/70; PULSE 68; RESP 16; TEMP 97.5; O2SAT 97
== END ==
LOC: HSDC 07:39
PROVIDERS: ATTEND Internal Medicine Gastroenterology
DX: R13.10 Dysphagia, unspecified (principal); K22.2 Esophageal obstruction; I10 Essential (primary) hypertension
CPT/HCPCS: 00731; 43236; 43248; 76000; 93005; C1769; J3301; J7120

== ENCOUNTER → 2017-08-07 | Outpatient (CLI) | payer MEDICARE ==
[~2017-08-07] VITALS: Ht 180.3 cm; Wt 73.1 kg
[~2017-08-07] MED LIST changes: +HYDR-3580 PO; -INSULIN HUMAN REGULAR 1,000 UNITS/10 ML VIAL SQ PRN; +MAGICADU2 SWISH-SWAL; -TRIAMCINOLONE ACETONIDE 50 MG/5 ML VIAL OTHER ONE
--- NOTE | 2017-08-07 10:44 | PD.PROCEDR ---
GI Procedure PROCEDURE PERFORMED EGD with balloon dilation INDICATION FOR PROCEDURE H/O esophageal cancer, with stricture had multiple dilation in the past PROCEDURE: The procedure, risks and benefits were discussed with Mr. Byrd and informed consent was obtained. Anesthesia sedated him with Diprivan. He was placed in the left lateral decubitus position. EGD: The Pentax videoscope was introduced through the oropharynx and advanced to the distal esophagus, was significant stricture in the distal esophagus where the surgical anastomosis, I was not able to pass the scope but I was able to see the stomach through the stricture so I passed a balloon over a guidewire size 8.5 mm and 9.5 mm after that I was able to pass the scope to the second portion of the duodenum and the scope brought back the stomach retroflexion was performed then more dilation of the distal esophageal strictures with size 10.5 , 11.5, 13.5, 15.5 was done without any immediate complication, the scope withdrawal back without immediate complication ESTIMATED BLOOD LOSS: None SPECIMENS REMOVED: None COMPLICATIONS: No immediate complication IMPRESSION: Severe stricture in the distal esophagus status post balloon dilation up to 15.5 mm PLAN: Nothing by mouth for 1 hours then clear liquids for 6 hours if no sign of any chest pain or abdominal pain advance diet to pured diet : There is any complaint of fever chest pain or abdominal pain Mira Ríos MD Aug 07, 2017 10:43
[2017-08-07 11:35] VITALS: BP 138/68; PULSE 60; RESP 18; TEMP 98; O2SAT 99
== END ==
LOC: HSDC 08:27
PROVIDERS: ATTEND Hospitalist
DX: K22.2 Esophageal obstruction (principal)
CPT/HCPCS: 00731; 43249; C1726; C1769; J7120

== ENCOUNTER → 2017-09-20 | Outpatient (CLI) | payer MEDICARE ==
[~2017-09-20] VITALS: Ht 175.3 cm; Wt 76.3 kg
[~2017-09-20] MED LIST changes: -BELL1TAB PO; +EMEN80CA PO; -Free Water J-TUBE; -HYDR-3580 PO; +INSULIN HUMAN REGULAR 1,000 UNITS/10 ML VIAL SQ PRN; +IOHEXOL 350 MG/ML 50 ML BTL (for RAD DIAG) OTHER ONE; +[UNRECOGNIZED DRUG - CODE] PO; -[UNRECOGNIZED DRUG - CODE] PO
--- NOTE | 2017-09-20 12:08 | PD.PROCEDR ---
GI Procedure PROCEDURE PERFORMED Upper endoscopy with balloon dilation INDICATION FOR PROCEDURE History of esophageal cancer with esophageal stricture PROCEDURE: The procedure, risks and benefits were discussed with Mr. Byrd and informed consent was obtained. Anesthesia sedated him with Diprivan. He was placed in the left lateral decubitus position. EGD: The Pentax videoscope was introduced through the oropharynx and advanced to the distal esophagus, there was significant narrowing and stricturing I was not able to pass the scope, so under visual guidance I passed a wire and then I dilated the stricture with balloon dilator under fluoroscopy diagnosis size 8.5 , 9.5, 10.5, 13 mm after that I was able to pass the scope to second portion of the duodenum under direct visualization. Retroflexion was performed in the stomach. Scope withdrawal back to the esophagus and dilation was size 14.5 and 15.5 was done without any immediate complication ESTIMATED BLOOD LOSS: None SPECIMENS REMOVED: None COMPLICATIONS: None IMPRESSION: Severe esophageal stricture, status post dilation with balloon guided and under fluoroscopy sizes 8.5, 9.5, 10.5, 13, 14.5, and 15.5 was done Stomach was normal Duodenum was normal PLAN: We're liquids for 6 hours then advance to full liquid, patient may try pured diet as tolerated Continue PPI Dilation in 1-2 weeks. Recommendations at [facility] to do 3-4 dilation in close proximity Return to clinic in 2 weeks Mira Ríos MD Sep 20, 2017 12:08
[2017-09-20 12:23] VITALS: BP 148/70; PULSE 60; RESP 18; TEMP 98.1; O2SAT 98
--- NOTE | 2017-09-20 14:02 | RADRPT ---
EXAM DATE/TIME: 09/20/2017 10:21 [facility] COMPARISON: GI LAB WIRE DILATATION, July 12, 2017, 9:59. INDICATIONS : Wire dilitation. FLUORO TIME: .33 minutes IMAGE COUNT: 3 CONTRAST: Instilled by Ordering Physician MEDICAL HISTORY : None. SURGICAL HISTORY : None. ENCOUNTER: Initial ACUITY: 1 day PAIN SCORE: Non-responsive. LOCATION: Esophagram dilitation. FINDINGS: Series of images show a balloon expanding in the upper abdomen. CONCLUSION: Balloon angioplasty projecting over the upper abdomen. Teddy Scott MD on September 20, 2017 at 13:58 Board Certified Radiologist. This report was verified electronically.
== END ==
LOC: HSDC 08:39
PROVIDERS: ATTEND Hospitalist
DX: K22.2 Esophageal obstruction (principal); Z85.01 Personal history of malignant neoplasm of esophagus
CPT/HCPCS: 00731; 43249; 76000; C1726; J7120; Q9967

== ENCOUNTER 2017-09-22 18:18 | Observation (INO) | payer MEDICARE ==
[~2017-09-22 18:18] MED LIST changes: -CHLORHEXIDINE GLUCONATE 2 % 1 PACK (2 CLOTHS) TOPICAL PRN; -INSULIN HUMAN REGULAR 1,000 UNITS/10 ML VIAL SQ PRN; -IOHEXOL 350 MG/ML 50 ML BTL (for RAD DIAG) OTHER ONE; -LACTATED RINGER'S 1000 ML IV PRN; -LIDOCAINE HCL 1% PF 5 ML SYRINGE OTHER ONE; -METOPROLOL TARTRATE 25 MG TAB PO PRN; -POVIDONE IODINE 5% (ANTISEPSIS KIT) 4 APPLICATIONS EACH NARE PRN; -PROPOFOL 200 MG/20 ML AMP IV ONE; -SODIUM CHLORID 0.9% 500 ML IV PRN
[2017-09-22 18:32] VITALS: BP 158/83; PULSE 74; RESP 18; TEMP 97.1; O2SAT 99
--- NOTE | 2017-09-22 19:32 | PD ---
HPI Chief Complaint: Degreasing Solution Reclaimer Problem Time Seen by Provider: 19:13 Travel History International Travel<30 days: No Contact w/Intl Traveler<30days: No Traveled to known affect area: No History of Present Illness HPI 67-year-old male arrives with J-tube fell out. Occurred on accident about a few hours prior to ER arrival. The patient has history of esophageal cancer and has undergone esophageal gastric resection by Dr. Ritchie. Onset sudden. Timing constant. Location skin and gastric. No modifying factor. PFSH Past Medical History Hx Anticoagulant Therapy: Yes (ELIQUIS) Arthritis: Yes Heart Rhythm Problems: No Cancer: Yes (ESOPHAGUS AND STOMACH) Cardiovascular Problems: No High Cholesterol: Yes Chemotherapy: No Chest Pain: No Congestive Heart Failure: No Diabetes: No Diminished Hearing: No Endocrine: No Gastrointestinal Disorders: Yes (J-TUBE, STATUS POST CANCER OF STOMACH/ ESOPHAGUS) GERD: Yes Glaucoma: No Genitourinary: No Hepatitis: No Hiatal Hernia: Yes Hypertension: Yes Immune Disorder: No Medical other: Yes (CHEMO, VIA INFUSAPORT L UPPER CHEST AREA) Musculoskeletal: Yes (OA, LOW BACK PAIN) Psychiatric: No Reproductive: No Respiratory: Yes (HX OF PNEUMOTHORAX) Radiation Therapy: No Sickle Cell Disease: No Thyroid Disease: No Ulcer: No Past Surgical History Abdominal Surgery: Yes (Laproscopic gastrectomy/ OPEN GASTRECTOMY/ cholecystectomy ) AICD: No Arteriovenous Shunt: No Body Medical Devices: INFUSAPORT L UPPER CHEST Cardiac Surgery: No Ear Surgery: No Endocrine Surgery: No Eye Surgery: Yes (JASKARAN CATARACTS) Genitourinary Surgery: No Gynecologic Surgery: No Insulin Pump: No Joint Replacement: No Oral Surgery: Yes (Tooth extractions) Pacemaker: No Thoracic Surgery: No Other Surgery: Yes (RIGHT CARPAL TUNNEL RELEASE) Social History Alcohol Use: No Tobacco Use: No Substance Use: No Allergies-Medications (Allergen,Severity, Reaction): Coded Allergies: atorvastatin (Verified Allergy, Severe, MUSCLE PAIN, 09/22/17) pravastatin (Verified Allergy, Severe, MUSCLE PAIN, 09/22/17) simvastatin (Verified Allergy, Severe, MUSCLE PAIN, 09/22/17) Reported Meds & Prescriptions Reported Meds & Active Scripts Active Prevacid (Lansoprazole) 30 Mg Capdr 30 Mg PO BID 30 Days Xanax (Alprazolam) 0.25 Mg Tab 0.25 Mg PO Q8H PRN 30 Days [place] Feeding Tube Pump Set 1 Mis Mis Ea .ROUTE CONTINUOUS glucerna 1.5 60ml/hour flush with 250ml free water q6h Reported Emend (Aprepitant) 80 Mg Cap 80 Mg PO Take on days 2 and 3 OF CHEMO Emend (Aprepitant) 125 Mg Cap 125 Mg PO SUNDAY Take on day 1 OF CHEMO Magic Mouthwash Adult Liq (Multi-Ingredient Mouthwash/Gargle) 120 Ml Susp 5 Ml SWISH-SWAL ACHS Each 5mL contains: Nystatin 200,000units, Diphenhydramine 4.25mg, Viscous Lidocaine 10mg, Mckeon syrup 0.8 mL Lidocaine Topical (Lidocaine HCl) 5 % Oint 1 Applic TOPICAL Q6HR PRN APPLY TO AFFECTED AREA PRN FOOT PAIN Zolpidem (Zolpidem Tartrate) 5 Mg Tab 5 Mg PO HS PRN Lopressor (Metoprolol Tartrate) 50 Mg Tab 25 Mg PO BID Carafate (Sucralfate) 1 Gram Tab 1 Gm PO TID On empty stomach Vital Peptide 1.5 Romaine Liquid (Nut.tx.impaired Digest/Fiber) 0.07 Gram-1.5 Kcal/ Ml Liquid 450 Oz J-TUBE DAILY Losartan (Losartan Potassium) 50 Mg Tab 50 Mg PO BID [place] (Hydrocodone-Acetaminophen) 7.5-325 mg Tab 1 Tab PO Q6H PRN Diazepam 5 Mg Tab 1-2 Tab PO HS PRN Acyclovir 400 Mg Tab 400 Mg PO Q6HR PRN Zofran (Ondansetron HCl) 4 Mg Tab 4 Mg PO Q12HR PRN Review of Systems Except as stated in HPI: all other systems reviewed are Neg General / Constitutional: No: Fever Physical Exam Narrative GENERAL: 67-year-old male well-nourished well-developed no acute distress Vital Signs Date Time Temp Pulse Resp B/P (MAP) Pulse Ox O2 Delivery O2 Flow Rate FiO2 09/22/17 19:01 Room Air 09/22/17 18:32 97.1 74 18 158/83 (108) 99 SKIN: Warm and dry. HEAD: Atraumatic. Normocephalic. EYES: Pupils equal and round. No scleral icterus. No injection or drainage. ENT: No nasal bleeding or discharge. Mucous membranes pink and moist. NECK: Trachea midline. No JVD. CARDIOVASCULAR: Regular rate and rhythm. RESPIRATORY: No accessory muscle use. Clear to auscultation. Breath sounds equal bilaterally. GASTROINTESTINAL: Abdomen soft. Surgical incision well-healed. In the region of the left upper quadrant there is a very small fistula tract for jejunal- tube. Minimal erythema is present. MUSCULOSKELETAL: Extremities without clubbing, cyanosis, or edema. No obvious deformities. NEUROLOGICAL: Awake and alert. No obvious cranial nerve deficits. Motor grossly within normal limits. Five out of 5 muscle strength in the arms and legs. Normal speech. PSYCHIATRIC: Appropriate mood and affect; insight and judgment normal. Data Data Last Documented VS Vital Signs Date Time Temp Pulse Resp B/P (MAP) Pulse Ox O2 Delivery O2 Flow Rate FiO2 09/22/17 19:01 Room Air 09/22/17 18:32 97.1 74 18 158/83 (108) 99 Orders Orders Basic Metabolic Panel (Bmp) (09/22/17 20:16) Complete Blood Count With Diff (09/22/17 20:16) Prothrombin Time / Inr (Pt) (09/22/17 20:16) Act Partial Throm Time (Ptt) (09/22/17 20:16) Iv Access Insert/Monitor (09/22/17 20:16) Sodium Chloride 0.9% Flush (Ns Flush) (09/22/17 20:30) Urinary Catheter Insert/Apply (09/22/17 20:16) Place In Observation (09/22/17 ) Code Status (09/22/17 20:57) Vital Signs (Adult) Q4H (09/22/17 20:57) Activity Oob With Assistance (09/22/17 20:57) Sodium Chloride 0.9% Flush (Ns Flush) (09/22/17 21:00) Sodium Chloride 0.9% Flush (Ns Flush) (09/22/17 21:00) Ondansetron Inj (Zofran Inj) (09/22/17 21:00) Basic Metabolic Panel (Bmp) (09/23/17 06:00) Comprehensive Metabolic Panel (09/23/17 06:00) Chest, Single Ap (09/22/17 20:57) Electrocardiogram (09/22/17 20:57) Pt Request For Service (09/22/17 20:57) Scd Bilateral/Knee High SERA.BID (4/14/18 20:57) Naloxone Inj (Narcan Inj) (09/22/17 21:00) Bisacodyl Supp (Dulcolax Supp) (09/22/17 21:00) 1/2 Ns + Kcl 20 Meq Inj (1/2 Ns + Kcl 20 (09/22/17 21:00) Invasive Rad Dept Consult (09/22/17 ) Admit Order (Ed Use Only) (09/22/17 ) Labs Laboratory Tests Test 09/22/17 20:50 White Blood Count 4.4 TH/MM3 Red Blood Count 4.08 MIL/MM3 Hemoglobin 13.7 GM/DL Hematocrit 39.6 % Mean Corpuscular Volume 97.0 FL Mean Corpuscular Hemoglobin 33.6 PG Mean Corpuscular Hemoglobin Concent 34.7 % Red Cell Distribution Width 15.3 % Platelet Count 158 TH/MM3 Mean Platelet Volume 7.7 FL Neutrophils (%) (Auto) 43.6 % Lymphocytes (%) (Auto) 35.5 % Monocytes (%) (Auto) 16.0 % Eosinophils (%) (Auto) 4.1 % Basophils (%) (Auto) 0.8 % Neutrophils # (Auto) 1.9 TH/MM3 Lymphocytes # (Auto) 1.6 TH/MM3 Monocytes # (Auto) 0.7 TH/MM3 Eosinophils # (Auto) 0.2 TH/MM3 Basophils # (Auto) 0.0 TH/MM3 CBC Comment DIFF FINAL Differential Comment MDM Medical Decision Making Medical Screen Exam Complete: Yes Emergency Medical Condition: Yes Medical Record Reviewed: Yes Differential Diagnosis J-tube replacement, dehydration, cancer Narrative Course Case discussed with interventional radiology who will replace J-tube in the morning. admission to Dr Murphy for [facility] pediatric chirinos was placed at the bedside attempt at g-tube placement failed 2/2 narrow fistula diameter Diagnosis Primary Impression: Complaint associated with gastric tube Admitting Information Admitting Physician Requests: Observation Jayson Renee MD Sep 22, 2017 19:32
[2017-09-22] MEDS ORDERED: SODIUM CHLORIDE 0.9% FLUSH 10 ML FLUSH IV FLUSH PRN ×2 (20:30→21:00)
[2017-09-22] MEDS: SODIUM CHLORIDE 0.9% FLUSH 10 ML FLUSH IV FLUSH SCH (21:00)
[2017-09-22] MEDS ORDERED: ONDANSETRON HCL 4 MG/2 ML VIAL IVP PRN (21:00)
[2017-09-22] MEDS ORDERED: BISACODYL 10 MG SUPP RECTAL PRN (21:00)
[2017-09-22] MEDS ORDERED: NALOXONE HCL 0.4 MG/ML AMP IV PUSH PRN (21:00)
[2017-09-22 21:14] LABS: AUTOMATED NEUTROPHIL # 1.9 TH/MM3 (1.8-7.7); BASOPHIL % 0.8 % (0.0-2.0); EOSINOPHIL # 0.2 TH/MM3 (0-0.4); EOSINOPHIL % 4.1 % (0.0-4.0); HEMATOCRIT 39.6 % (39.0-51.0); HEMOGLOBIN 13.7 GM/DL (13.0-17.0); LYMPH % 35.5 % (9.0-44.0); LYMPHOCYTE # 1.6 TH/MM3 (1.0-4.8); MEAN CORPUSCULAR HEMOGLOBIN 33.6 PG (27.0-34.0); MEAN CORPUSCULAR HGB CONC 34.7 % (32.0-36.0); MEAN PLATELET VOLUME 7.7 FL (7.0-11.0); MONOCYTE # 0.7 TH/MM3 (0-0.9); NEUT % 43.6 % (16.0-70.0); PLATELET COUNT 158 TH/MM3 (150-450); RED BLOOD COUNT 4.08 MIL/MM3 (4.50-5.90); RED CELL DISTRIBUTION WIDTH 15.3 % (11.6-17.2); WHITE BLOOD COUNT 4.4 TH/MM3 (4.0-11.0)
[2017-09-22] MEDS ORDERED: ALPRAZolam 0.25 MG TAB PO PRN (21:15)
[2017-09-22] MEDS ORDERED: ACETAMINOPHEN/HYDROcodone 325 MG/5 MG TAB PO PRN (21:15)
[2017-09-22] MEDS ORDERED: ZOLPIDEM TARTRATE 5 MG TAB PO PRN (21:15)
[2017-09-22] MEDS ORDERED: LIDOCAINE HCL 5% OINT 37 GM TUBE TOPICAL PRN (21:15)
[2017-09-22 21:24] LABS: PROTHROMBIN TIME - PATIENT 10.1 SEC (9.8-11.6)
[2017-09-22 21:28] LABS: BICARBONATE 27.3 MEQ/L (21.0-32.0); CALCIUM 8.9 MG/DL (8.5-10.1); CREATININE 0.53 MG/DL (0.60-1.30)
--- NOTE | 2017-09-22 22:24 | RADRPT ---
EXAM DATE/TIME: 09/22/2017 21:20 [facility] COMPARISON: No previous studies available for comparison. INDICATIONS : Cough. Feeding tube fell out today. MEDICAL HISTORY : Cardiovascular disease. Hypertension stomach and esophageal cancer. SURGICAL HISTORY : Cholecystectomy. Gastrectomy ENCOUNTER: Initial ACUITY: 1 day PAIN SCORE: 0/10 LOCATION: Bilateral chest FINDINGS: Mild left base scarring again noted. No acute infiltrate. No pleural effusion or pneumothorax. Heart size stable, within normal limits. Left subclavian [id number]-p-[id number] catheter with tip in the superior vena cava again noted. CONCLUSION: No acute cardiopulmonary disease demonstrated. Trace left base scarring again seen. Gonzales Pierre MD on September 22, 2017 at 22:22 Board Certified Radiologist. This report was verified electronically.
[2017-09-22 22:41] VITALS: BP 157/80; PULSE 69; RESP 18; TEMP 98.1; O2SAT 97
[2017-09-23] MEDS: 1/2 NS + KCL 20 MEQ INJ 1,000 ML IV SCH ×2 (02:54→09:56)
[2017-09-23 03:35] VITALS: BP 146/74; PULSE 59; RESP 18; TEMP 98.3; O2SAT 97
[2017-09-23 06:23] LABS: AST (GOT) 28 U/L (15-37); BICARBONATE 26.9 MEQ/L (21.0-32.0); BLOOD UREA NITROGEN 4 MG/DL (7-18); CHLORIDE 108 MEQ/L (98-107); CREATININE 0.59 MG/DL (0.60-1.30); GLOMERULAR FILTRATION RATE 138 ML/MIN (>89); GLUCOSE,RANDOM 105 MG/DL (74-106); SODIUM (NA) 141 MEQ/L (136-145)
[2017-09-23 06:26] LABS: ALKALINE PHOSPHATASE 90 U/L (45-117); ALT (GPT) 24 U/L (12-78); TOTAL BILIRUBIN ADULT 0.4 MG/DL (0.2-1.0); TOTAL PROTEIN 7.1 GM/DL (6.4-8.2)
[2017-09-23] MEDS: SUCRALFATE 1 GM TAB PO SCH ×2 (08:42→10:36)
[2017-09-23] MEDS ORDERED: PANTOPRAZOLE SOD 40 MG DELAYED RELEASE TAB PO SCH (09:00)
[2017-09-23] MEDS ORDERED: METOPROLOL TARTRATE 50 MG TAB PO SCH (09:00)
[2017-09-23] MEDS ORDERED: LOSARTAN 50 MG TAB PO SCH (09:00)
--- NOTE | 2017-09-23 09:28 | HHI.HP ---
HPI Service [facility] Hospitalists Primary Care Physician Tai Bhatt MD Admission Diagnosis FEEDING TUBE DISLODGED Travel History International Travel<30 Days: No Contact w/Intl Traveler <30 Da: No Traveled to Known Affected Are: No History of Present Illness This is a 66yo male with a PMHX of adenocarcinoma of the distal esophagus diagnosed 11/2016, HTN, atrial fibrillation, DM and GERD who was admitted [place] [facility] [place]17 for laparoscopic partial gastrectomy and cholecystectomy with Botox injection with Dr. Ritchie. Was discharged from [facility] on and admitted to [place] inpatient rehabilitation where he completed inpatient rehabilitation and was discharged 03/07/2017 patient had been progressing at home and doing well until last night when his feeding tube accidentally became dislodged. Patient then presented to the emergency department. Plan for patient to have interventional radiology replace feeding tube this a.m. Patient offers no other specific complaints at this time. Denies fevers chills nausea vomiting diarrhea constipation shortness of breath or chest pain. Review of Systems Constitutional: DENIES: Fatigue, Fever, Chills Respiratory: DENIES: Cough, Sputum production, Shortness of breath Gastrointestinal: DENIES: Abdominal pain, Constipation, Diarrhea, Nausea, Vomiting Neurologic: DENIES: Abnormal gait, Headache, Localized weakness Psychiatric: DENIES: Anxiety, Confusion, Depression Past Family Social History Past Medical History adenocarcinoma of the distal esophagus diagnosed 11/2016 HTN atrial fibrillation DM GERD HLD Past Surgical History 01/19 -cholecystectomy, proximal gastrectomy with GE junction anastomosis and Botox injection by Dr. Ritchie 01/24 - bilateral chest tubes/open subtotal gastrectomy and jejunostomy placement Appendectomy Elbow surgery Left knee surgery Cataract surgery Reported Medications Prevacid (Lansoprazole) 30 Mg Capdr 30 Mg PO BID 30 Days Xanax (Alprazolam) 0.25 Mg Tab 0.25 Mg PO Q8H PRN 30 Days [place] Feeding Tube Pump Set 1 Mis Mis Ea .ROUTE CONTINUOUS glucerna 1.5 60ml/hour flush with 250ml free water q6h Emend (Aprepitant) 80 Mg Cap 80 Mg PO Take on days 2 and 3 OF CHEMO Emend (Aprepitant) 125 Mg Cap 125 Mg PO SUNDAY Take on day 1 OF CHEMO Magic Mouthwash Adult Liq (Multi-Ingredient Mouthwash/Gargle) 120 Ml Susp 5 Ml SWISH-SWAL ACHS Each 5mL contains: Nystatin 200,000units, Diphenhydramine 4.25mg, Viscous Lidocaine 10mg, Mckeon syrup 0.8 mL Lidocaine Topical (Lidocaine HCl) 5 % Oint 1 Applic TOPICAL Q6HR PRN APPLY TO AFFECTED AREA PRN FOOT PAIN Zolpidem (Zolpidem Tartrate) 5 Mg Tab 5 Mg PO HS PRN Lopressor (Metoprolol Tartrate) 50 Mg Tab 25 Mg PO BID Carafate (Sucralfate) 1 Gram Tab 1 Gm PO TID On empty stomach Vital Peptide 1.5 Romaine Liquid (Nut.tx.impaired Digest/Fiber) 0.07 Gram-1.5 Kcal/ Ml Liquid 450 Oz J-TUBE DAILY Losartan (Losartan Potassium) 50 Mg Tab 50 Mg PO BID [place] (Hydrocodone-Acetaminophen) 7.5-325 mg Tab 1 Tab PO Q6H PRN Diazepam 5 Mg Tab 1-2 Tab PO HS PRN Acyclovir 400 Mg Tab 400 Mg PO Q6HR PRN Zofran (Ondansetron HCl) 4 Mg Tab 4 Mg PO Q12HR PRN Allergies: Coded Allergies: atorvastatin (Verified Allergy, Severe, MUSCLE PAIN, 09/22/17) pravastatin (Verified Allergy, Severe, MUSCLE PAIN, 09/22/17) simvastatin (Verified Allergy, Severe, MUSCLE PAIN, 09/22/17) Family History Mother, breast cancer Father, heart disease Social History Patient reports history of tobacco use of 1ppd x 20yrs but quit in 1994. He reports occasional glass of wine. He denies any illicit drug use. Physical Exam Vital Signs Vital Signs Date Time Temp Pulse Resp B/P (MAP) Pulse Ox O2 Delivery O2 Flow Rate FiO2 09/23/17 03:35 98.3 59 18 146/74 (98) 97 09/22/17 22:41 98.1 69 18 157/80 (105) 97 09/22/17 19:01 Room Air 09/22/17 18:32 97.1 74 18 158/83 (108) 99 Physical Exam GENERAL: This is a well-nourished, well-developed patient, in no apparent distress. SKIN: dressing left lower abdomen dry and intact HEAD: Atraumatic. Normocephalic. No temporal or scalp tenderness. EYES: Extraocular motions intact. No scleral icterus. No injection or drainage. CARDIOVASCULAR: Regular rate and rhythm RESPIRATORY: Clear to auscultation. Breath sounds equal bilaterally. GASTROINTESTINAL: Abdomen soft, non-tender, nondistended. Feeding tube in place MUSCULOSKELETAL: Extremities without clubbing, cyanosis, or edema. No joint tenderness, effusion, or edema noted. No calf tenderness. Negative Homans sign bilaterally. NEUROLOGICAL: Awake and alert. no focal deficits. Motor and sensory grossly within normal limits. Five out of 5 muscle strength in all muscle groups. Normal speech. Laboratory Laboratory Tests Test 09/22/17 20:50 09/23/17 05:43 White Blood Count 4.4 Red Blood Count 4.08 Hemoglobin 13.7 Hematocrit 39.6 Mean Corpuscular Volume 97.0 Mean Corpuscular Hemoglobin 33.6 Mean Corpuscular Hemoglobin Concent 34.7 Red Cell Distribution Width 15.3 Platelet Count 158 Mean Platelet Volume 7.7 Neutrophils (%) (Auto) 43.6 Lymphocytes (%) (Auto) 35.5 Monocytes (%) (Auto) 16.0 Eosinophils (%) (Auto) 4.1 Basophils (%) (Auto) 0.8 Neutrophils # (Auto) 1.9 Lymphocytes # (Auto) 1.6 Monocytes # (Auto) 0.7 Eosinophils # (Auto) 0.2 Basophils # (Auto) 0.0 CBC Comment DIFF FINAL Differential Comment Prothrombin Time 10.1 Prothromb Time International Ratio 1.0 Activated Partial Thromboplast Time 27.5 Blood Urea Nitrogen 5 4 Creatinine 0.53 0.59 Random Glucose 92 105 Calcium Level 8.9 9.0 Sodium Level 141 141 Potassium Level 3.8 3.9 Chloride Level 109 108 Carbon Dioxide Level 27.3 26.9 Anion Gap 5 6 Estimat Glomerular Filtration Rate 156 138 Total Protein 7.1 Albumin 3.0 Alkaline Phosphatase 90 Aspartate Amino Transf (AST/SGOT) 28 Alanine Aminotransferase (ALT/SGPT) 24 Total Bilirubin 0.4 Result Diagram: 09/22/17204909/23/17 0543 Imaging Last Impressions Chest X-Ray 09/22/172056 Signed Impressions: Service Date/Time: Friday, September 22, 2017 21:20 - CONCLUSION: No acute cardiopulmonary disease demonstrated. Trace left base scarring again seen. MD Tamiko Babb VTE Risk Assessment Caprini VTE Risk Assessment: Mod/High Risk (score >= 2) Caprini Risk Assessment Model Point Value = 1 Point Value = 2 Point Value = 3 Point Value = 5 Age 41-60 Minor surgery BMI > 25 kg/m2 Swollen legs Varicose veins or History of unexplained or recurrent spontaneous Oral contraceptives or hormone replacement Sepsis (< 1 month) Serious lung disease, including pneumonia (< 1 month) Abnormal pulmonary function Acute myocardial infarction Congestive heart failure (< 1 month) History of inflammatory bowel disease Medical patient at bed rest Age 61-74 Arthroscopic surgery Major open surgery (> 45 min) Laparoscopic surgery (> 45 min) Malignancy Confined to bed (> 72 hours) Immobilizing plaster cast Central venous access Age >= 75 History of VTE Family history of VTE Factor V Leiden Prothrombin 52209A Lupus anticoagulant Anticardiolipin antibodies Elevated serum homocysteine Heparin-induced thrombocytopenia Other congenital or acquired thrombophilia Stroke (< 1 month) Elective arthroplasty Hip, pelvis, or leg fracture Acute spinal cord injury (< 1 month) Prophylaxis Regimen Total Risk Factor Score Risk Level Prophylaxis Regimen 0-1 Low Early ambulation 2 Moderate Order ONE of the following: *Sequential Compression Device (SCD) *Heparin 5000 units SQ BID 3-4 Higher Order ONE of the following medications: *Heparin 5000 units SQ TID *Enoxaparin/Lovenox 40 mg SQ daily (WT < 150 kg, CrCl > 30 mL/min) *Enoxaparin/Lovenox 30 mg SQ daily (WT < 150 kg, CrCl > 10-29 mL/min) *Enoxaparin/Lovenox 30 mg SQ BID (WT < 150 kg, CrCl > 30 mL/min) AND/OR *Sequential Compression Device (SCD) 5 or more Highest Order ONE of the following medications: *Heparin 5000 units SQ TID (Preferred with Epidurals) *Enoxaparin/Lovenox 40 mg SQ daily (WT < 150 kg, CrCl > 30 mL/min) *Enoxaparin/Lovenox 30 mg SQ daily (WT < 150 kg, CrCl > 10-29 mL/min) *Enoxaparin/Lovenox 30 mg SQ BID (WT < 150 kg, CrCl > 30 mL/min) AND *Sequential Compression Device (SCD) Assessment and Plan Problem List: (1) Feeding tube dysfunction ICD Codes: T85.598A - Other mechanical complication of other gastrointestinal prosthetic devices, implants and grafts, initial encounter Plan: This is a 66yo male with a PMHX of adenocarcinoma of the distal esophagus diagnosed 11/2016, HTN, atrial fibrillation, DM and GERD who was admitted to [facility] on 01/17/17 for laparoscopic partial gastrectomy and cholecystectomy with Botox injection with Dr. Ritchie. Was discharged from [facility] on 02/20/2017 and admitted to [place] inpatient rehabilitation where he completed inpatient rehabilitation and was discharged patient had been progressing at home and doing well until last night when his feeding tube accidentally became dislodged. Patient then presented to the emergency department. Plan for patient to have interventional radiology replace feeding tube this a.m. feeding tube replaced by IR DC patient home in stable condition on pureed diet with tube feeding no medication changes patient has appointment with his oncologist Dr. Luna tomorrow and appointment with [facility] in 2 weeks Assessment and Plan Patient examined. Assessment and plan formulated with Thea Cunningham PA-C. I agree with the above. J-tube replaced by Interventional Radiology. Pt has no new medical complaints. Pt is eager for discharge. Pt to f/u with his Oncologist, Dr. Luna, in 2-3 days. Thea Cunningham Sep 23, 2017 09:28 Patrice Connelly DO Sep 23, 2017 10:48
[2017-09-23] MEDS: SODIUM CHLORIDE 0.9% FLUSH 10 ML FLUSH IV FLUSH SCH (10:36)
--- NOTE | 2017-09-23 11:37 | HHI.DCPOC ---
Discharge Care Plan Diagnosis: (1) Feeding tube dysfunction Goals to Promote Your Health * To prevent worsening of your condition and complications * To maintain your health at the optimal level Directions to Meet Your Goals Take your medications as prescribed Follow your dietary instruction Follow activity as directed Keep your appointments as scheduled Take your immunizations and boosters as scheduled If your symptoms worsen call your PCP, if no PCP go to Urgent Care Center or Emergency Room Smoking is Dangerous to Your Health. Avoid second hand smoke Call the 24-hour hour crisis hotline for domestic abuse at Thea Cunningham Sep 23, 2017 11:37
[2017-09-23] MEDS ORDERED: SODIUM CHLORIDE 0.9% FLUSH 10 ML FLUSH IVF PRN (11:45)
--- NOTE | 2017-09-23 14:27 | EKG ---
Date Performed: 09/22/2017 Time Performed: 22:18:29 PTAGE: 67 years EKG: Sinus rhythm NORMAL ECG Since PREVIOUS TRACING , no significant change noted PREVIOUS TRACIN07/12/2017 08.02 DOCTOR: Kirstin Abarca Interpretating Date/Time 09/23/2017 14:25:19
--- NOTE | 2017-09-24 10:05 | RADRPT ---
EXAM DATE/TIME: 09/23/2017 00:00 [place] COMPARISON: No previous studies available for comparison. INDICATIONS : Patient presents with J-Tube extended out in need of replacement. MEDICAL HISTORY : ESOPHAGUS AND STOMACH Arthritis High Cholesterol GERD Hypertension SURGICAL HISTORY : Laproscopic gastrectomy/ OPEN GASTRECTOMY/ cholecystectomy INFUSAPORT L UPPER CHEST JASKARAN CATARACTS ENCOUNTER: Initial ACUITY: 1 day PAIN SCORE: 0/10 FLUORO TIME: 5.5 minutes IMAGE SERIES: 1 minutes CONTRAST: 10 cc Omnipaque (iohexol) 350 DEVICE(S): 1.) 16F J Tube PROCEDURE : 1. Fluoroscopically guided tube exchange. 2. Conscious sedation with continuous EKG and oximetry monitoring. The risks, benefits and alternatives to the procedure were explained and verbal and written consent w as obtained. The site was prepped in sterile fashion. Full sterile technique was used, including ca p, mask, sterile gloves and gown and a large sterile sheet. Hand hygiene and 2% chlorhexidine and/or betadine/alcohol prep was utilized per protocol for cutaneous antisepsis. With fluoroscopic guidance the previously placed tube was exchanged for the prescribed catheter. Pos t procedure image demonstrates satisfactory position of the tube. The catheter was sutured in place and a Percu-Stay was applied. Conscious sedation was performed with the prescribed dosages and duration as above in the presence of an independent trained radiology nurse to assist in the monitoring of the patient. EKG and oximetry remained stable throughout the procedure. The patient tolerated the procedure well and there were no complications. The patient was sent to post anesthesia recovery in stable condition. CONCLUSION: Uncomplicated tube exchange as above. Timo Dodd MD on September 24, 2017 at 10:03 Board Certified Radiologist. This report was verified electronically.
== END 2017-09-23 12:21 | disposition home or self-care (01) ==
LOC: NEPC 18:18 → NEDA 21:07 → NEPFCDU 22:32
PROVIDERS: ADMIT Hospitalist; ATTEND Hospitalist
DX: T85.598A Other mechanical complication of other gastrointestinal prosthetic devices, implants and grafts, initial encounter (principal); C15.5 Malignant neoplasm of lower third of esophagus; I48.91 Unspecified atrial fibrillation; E78.5 Hyperlipidemia, unspecified; I10 Essential (primary) hypertension; E11.9 Type 2 diabetes mellitus without complications; E78.00 Pure hypercholesterolemia, unspecified; K21.9 Gastro-esophageal reflux disease without esophagitis; Z79.01 Long term (current) use of anticoagulants
CPT/HCPCS: 49451; 71045; 80048; 80053; 85025; 85610; 85730; 93005; 96360; 96361; 97161; 99285; C1887; G0378; G8987; G8988; J1642

== ENCOUNTER → 2017-10-04 | Outpatient (CLI) | payer MEDICARE ==
[~2017-10-04] VITALS: Ht 175.3 cm; Wt 76.1 kg
[~2017-10-04] MED LIST changes: +CHLORHEXIDINE GLUCONATE 2 % 1 PACK (2 CLOTHS) TOPICAL PRN; +INSULIN HUMAN REGULAR 1,000 UNITS/10 ML VIAL SQ PRN; +LACTATED RINGER'S 1000 ML IV PRN; +LIDOCAINE HCL 1% PF 5 ML SYRINGE OTHER ONE; +METOPROLOL TARTRATE 25 MG TAB PO PRN; +POVIDONE IODINE 5% (ANTISEPSIS KIT) 4 APPLICATIONS EACH NARE PRN; +PROPOFOL 200 MG/20 ML AMP IV ONE; +SODIUM CHLORID 0.9% 500 ML IV PRN
--- NOTE | 2017-10-04 11:26 | PD.PROCEDR ---
GI Procedure PROCEDURE PERFORMED EGD with dilation INDICATION FOR PROCEDURE Dysphagia, anastomotic stricture PROCEDURE: The procedure, risks and benefits were discussed with Patient/POA and informed consent was obtained. Anesthesia sedated Patient with Diprivan. Patient was placed in the left lateral decubitus position. EGD: The Pentax videoscope was introduced through the oropharynx and advanced to the second portion of the duodenum under direct visualization. Retroflexion was performed in the stomach. FINDINGS: The esophagus was unremarkable and within normal limits there was actually a significant benign looking stricture at the level of the gastroesophageal anastomosis I was unable to pass the scope and so we initially dilated with size 10 savory dilator over guidewire and then we used the 12 and then the 15 postdilatation view was satisfactory with a minimal rent The stomach this appears to be unremarkable with normal limits The duodenum was also unremarkable and within normal limits ESTIMATED BLOOD LOSS: Minimal SPECIMENS REMOVED: None COMPLICATIONS: None IMPRESSION: Gastroesophageal anastomotic stricture PLAN: Follow-up in clinic with me in 2 weeks okay to overbook Consider stent placement and consider self dilations Dakota Hong MD Oct 04, 2017 11:26
[2017-10-04 12:00] VITALS: BP 112/60; PULSE 62; RESP 18; TEMP 98.1; O2SAT 95
== END ==
LOC: HEND 08:59
PROVIDERS: ATTEND Internal Medicine Gastroenterology
DX: K22.2 Esophageal obstruction (principal); R13.10 Dysphagia, unspecified
CPT/HCPCS: 00731; 43248; C1769

== ENCOUNTER → 2017-11-01 | Outpatient (CLI) | payer MEDICARE ==
[~2017-11-01] VITALS: Ht 180.3 cm; Wt 74.1 kg
[~2017-11-01] MED LIST changes: -KANGAROO JOEY P1 MIS; +METOCLOPRAMIDE HCL 10 MG/2 ML VIAL ONE; +ONDANSETRON HCL 4 MG/2 ML VIAL ONE
--- NOTE | 2017-11-01 14:38 | PD.PROCEDR ---
GI Procedure PROCEDURE PERFORMED EGD with esophageal dilatation with the over the guidewire savory dilator and esophageal stent placement INDICATION FOR PROCEDURE Gastroesophageal anastomotic stricture PROCEDURE: The procedure, risks and benefits were discussed with Patient/POA and informed consent was obtained. Anesthesia sedated Patient with Diprivan. Patient was placed in the left lateral decubitus position. EGD: The Pentax videoscope was introduced through the oropharynx and advanced to the second portion of the duodenum under direct visualization. Retroflexion was performed in the stomach. FINDINGS: The esophagus this appeared to be unremarkable except for the stricture at the anastomosis this appeared to be a benign stricture a guidewire was advanced under fluoroscopic guidance then a size 14 savory dilator was advanced over the guidewire to dilate the anastomosis postdilatation view was satisfactory with only a small rent then a 23 mm diameter 10 cm length fully covered esophageal stent was placed under fluoroscopic guidance the stent traverses the stricture into the stomach The stomach this appeared to be unremarkable and within normal limits The duodenum this to appear to be unremarkable with normal limits ESTIMATED BLOOD LOSS: Minimal SPECIMENS REMOVED: None COMPLICATIONS: None IMPRESSION: Gastroesophageal anastomotic stricture PLAN: Follow-up in clinic in 2 weeks EGD in 4-6 weeks for stent removal Soft mechanical diet or pured Reflux precautions Dakota Hong MD November 01, 2017 14:38
[2017-11-01 16:16] VITALS: BP 150/72; PULSE 68; RESP 18; TEMP 97.8; O2SAT 100
--- NOTE | 2017-11-01 17:01 | RADRPT ---
EXAM DATE: 11/01/2017 3:27 PM EDT AGE/SEX: 67 years / Male INDICATIONS: Wire dilatation, esophageal stent placement. CLINICAL DATA: This is the patient's initial encounter. Patient reports that signs and symptoms have been present for 1 day and indicates a pain score of Nonresponsive. MEDICAL/SURGICAL HISTORY: Non-responsive. Non-responsive. COMPARISON: No prior [facility] exams available for comparison. FINDINGS: Single film reveals an endoscope in the upper esophagus and a stent overlying the lower esophagus. CONCLUSION: Esophageal stent placement. Electronically signed by: Jordan Lozano MD 11/01/2017 5:00 PM EDT
== END ==
LOC: HSDC 10:03
PROVIDERS: ATTEND Internal Medicine Gastroenterology
DX: K22.2 Esophageal obstruction (principal); R13.10 Dysphagia, unspecified; K44.9 Diaphragmatic hernia without obstruction or gangrene; I10 Essential (primary) hypertension; K21.9 Gastro-esophageal reflux disease without esophagitis; Z93.4 Other artificial openings of gastrointestinal tract status; Z79.01 Long term (current) use of anticoagulants
CPT/HCPCS: 00731; 43266; 76000; C1769; C2625; J2405; J2765